=== PATIENT | male | born 1945 | race Caucasian/White ===

== ENCOUNTER 2016-10-14 09:04 | Emergency (ER) | payer MEDICARE, OTHER ==
[2016-10-14 09:23] VITALS: BP 176/79
--- NOTE | 2016-10-14 15:01 | UC ---
Cherelle Tello Anna, scribed for Joy Paul MD on 10/14/16 at 0914 . General HPI - HPI Summary HPI Summary: Patient is a 71 y/o male coming to [facility] – [place] presenting with right facial droop that began on Thursday, 10 October 2016 (today is Thursday). 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 Unable to close his eye, and feels like food and liquids are coming out of the right side of his mouth. No headache. No visual or auditory changes. No chest pain. No sob. No other weakness / paresth / dysesth. No gi sx. No b/b issues. No rash. Bit by a tick approx 1 year ago, reports that he was seen by his doctor at that time. Symptoms have not improved over the weekend (today is Thursday), prompting visit here, accompanied by his . His right eye is swollen and he cant blink it. He has been unable to drink water because of his mouth droop. Last night he noticed the back of his right ear was sore. He has been trying to get a hold of his doctor, Dr. Lyons. Does not sleep with air conditioner or heater blowing on him. - History of Current Complaint Stated Complaint: FACIAL NUMBNESS Time Seen by Provider: 10/14/16 09:08 Hx Obtained From: Patient, Family/District Adviser - Accompanied by Onset Severity: Moderate Current Severity: Moderate - Allergy/Home Medications Allergies/Adverse Reactions: Allergies Allergy/AdvReac Type Severity Reaction Status Date / Time No Known Allergies Allergy Verified 03/21/15 16:01 PMH/Surg Hx/FS Hx/Imm Hx Previously Healthy: No - see below Endocrine History Of: Reports: Diabetes, Thyroid Disease Cardiovascular History Of: Reports: Cardiac Disorders - CAD, stents, Hypertension Respiratory History Of: Denies: COPD, Asthma GI/ History Of: Denies: Ulcer - Surgical History Surgical History: Yes Surgery Procedure, Year, and Place: Knee replacement right knee, right shoulder replacement, fingers left hand repair, cardiac stents - Family History Known Family History: Positive: Hypertension - Social History Lives: With Family Alcohol Use: None Substance Use Type: None Smoking Status (MU): Never Smoked Tobacco Type: Cigarettes When Did the Patient Quit Smoking/Using Tobacco: 20+ years ago Review of Systems Constitutional: Negative Skin: Negative Eyes: Negative ENT: Other - see hpi Respiratory: Negative Cardiovascular: Negative Gastrointestinal: Negative Genitourinary: Negative Motor: Negative Neurovascular: Other - see hpi Musculoskeletal: Edema - feels like right side of face is swollen Neurological: Other - Right-sided facial droop Psychological: Negative All Other Systems Reviewed And Are Negative: Yes Physical Exam Triage Information Reviewed: Yes Appearance: Well-Nourished Vital Signs: Initial Vital Signs Temp 96.7 F 10/14/16 09:19 Pulse 66 10/14/16 09:19 Resp 20 10/14/16 09:19 BP 176/79 10/14/16 09:19 Pulse Ox 97 10/14/16 09:19 Vital Signs Reviewed: Yes Eye Exam: Other - perrla eomi, no gross nystagmus. R eyelids do not close completely, + watery, mild scleral redness. ENT: Positive: Nasal drainage - mild runny nose, TM dull - au dull. EAC's mild cerumen. No redness., Other: - see neuro Neck exam: Normal Neck: Positive: Supple, Nontender, No Lymphadenopathy Respiratory Exam: Normal Respiratory: Positive: Chest non-tender, Lungs clear, Normal breath sounds, No respiratory distress, No accessory muscle use Cardiovascular Exam: Normal Cardiovascular: Positive: RRR, No Murmur, Pulses Normal, Brisk Capillary Refill Abdominal Exam: Normal Abdomen Description: Positive: Nontender, No Organomegaly, Soft Bowel Sounds: Positive: Present Musculoskeletal Exam: Other - see neuro Neurological Exam: Other - Right facial droop. Forehead Right is NOT spared. Eye is watery. Asymmetric smile. Tongue possible slight L deviation. Neck supple. Trachea midline. No c/o diplopia. sparing. No c/o smell issues. V1- 3 sens to LT is present left face, also pt reports + light touch sensation to right face (although possibly dysesthetic). + ax N sensation intact. good shrug. Distal hand finger bilat sens light touch present. R/U pulses present. DTR's approx 1+ equalBR / R Moves all ext's. Distal sens LT present x 4 ext' s Gait not tested. R / U pulses 2+ equal. Psychological Exam: Normal - Conversing easily and appropriately Skin Exam: Normal - no visible or reported rash Diagnostics - EKG Cardiac Rate: NL - 63 bpm. EKG at 0913. Cardiac Rhythm: Sinus: Normal - LVH, baseline wander in lead v3. NM 152. QTc 439. Course/Dx - Course Course Of Treatment: No new problems in CCC. Blood sugar 250mg / dl. Reviewed EKG. No old for comp. Consider periph vs central. Most likely peripheral ( forehead is not spared). However, important that this be eval'd in the ED. Will send to the ED, will go via EMS. D/w ED attending. Questions answered as posed. - Differential Dx - Multi-Symptom Provider Diagnoses: R facial weakness. - Physician Notifications Discussed Patient Care With: Dr. Cuevas (ED Doctor) at 09. Agrees to accept patient at [facility]. Discharge - Discharge Plan Condition: Guarded Disposition: TRANS HIGHER LVL OF CARE FAC Referrals: Priya Brooks MD [Primary Care Provider] - The documentation as recorded by the Cherelle duran Anna accurately reflects the service I personally performed and the decisions made by me, Joy Paul MD.
== END 2016-10-14 09:37 | disposition short-term general hospital (02) ==
LOC: UCEAST 09:04
DX: R29.810 Facial weakness (principal); Z87.891 Personal history of nicotine dependence
CPT/HCPCS: 93005; 99213; G0463

== ENCOUNTER 2016-10-14 09:48 | Emergency (ER) | payer MEDICARE, OTHER ==
[2016-10-14 10:02] VITALS: BP 150/67
[2016-10-14] MEDS ORDERED: predniSONE TAB* 20 MG PO ONE (10:42)
[2016-10-14 10:54] LABS: Hematocrit 39 % (42-52); Hemoglobin 13.2 g/dl (14.0-18.0); Mean Corpuscular HGB Conc 34 g/dl (31-36); Mean Corpuscular Hemoglobin 31 pg (27-31); Mean Corpuscular Volume 90 fL (80-94); Mean Platelet Volume 9 um3 (7.4-10.4); Red Blood Count 4.31 10^6/ul (4.0-5.4); Red Cell Distribution Width 13 % (10.5-15)
[2016-10-14 11:11] LABS: Albumin 4.2 g/dL (3.2-5.2); Calcium 10.1 mg/dL (8.6-10.3); EGFR Non-African American 55.2 (>60); Potassium 4.4 mmol/L (3.5-5.0); Total Bilirubin 0.5 mg/dL (0.2-1.0); Total Protein 7.2 g/dL (6.4-8.9)
--- NOTE | 2016-10-14 11:24 | RAD ---
INDICATION: Complete right facial paralysis. COMPARISON: Comparison is made with a prior CT of the brain from September 08, 2013. TECHNIQUE: Contiguous axial sections of the brain were obtained from the skull base to the vertex without contrast. FINDINGS: The ventricles, cisterns and sulci are within normal limits. No significant focal abnormality or mass effect is seen. There is no evidence for hemorrhage. No significant focal osseous abnormality is seen. The visualized portion of the paranasal sinuses and mastoid air cells appear clear. IMPRESSION: NO EVIDENCE FOR GROSS ACUTE INFARCT, MASS EFFECT OR HEMORRHAGE.
[2016-10-14] MEDS ORDERED: ValACYclovir (*) 1 GM TAB PO ONE (12:01)
[2016-10-14] MEDS ORDERED: Cephalexin CAP* 500 MG PO ONE (12:12)
--- NOTE | 2016-10-14 18:38 | ED ---
Toribio Tello Matthew, scribed for Reinaldo Cuevas MD on 10/14/16 at 1126 . Neurological HPI - HPI Summary HPI Summary: A 71 y/o male presents to the ED with sudden right sided facial drooping since . 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 The patient denies rash. He has a sore on his back and saw Dr. Brooks his PCP on 10/10/16. 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 The patient took his blood pressure medication this morning. - History of Current Complaint Chief Complaint: EDNeurologicalDeficit Stated Complaint: FACIAL NUMBNESS Time Seen by Provider: 10/14/16 09:52 Hx Obtained From: Patient Onset/Duration: Sudden Onset, Started days ago - 3, Still Present Timing: Constant Onset Severity: Mild Current Severity: Mild Neurological Deficit Location: Facial Character: Paralysis - left side of the face Aggravating: Nothing Alleviating: Nothing Associated Signs and Symptoms: Positive: Pain - Right inner ear - Allergy/Home Medications Allergies/Adverse Reactions: Allergies Allergy/AdvReac Type Severity Reaction Status Date / Time No Known Allergies Allergy Verified 03/21/15 16:01 PMH/Surg Hx/FS Hx/Imm Hx Endocrine/Hematology History: Reports: Hx Diabetes Denies: Hx Thyroid Disease Cardiovascular History: Reports: Hx Hypertension Respiratory History: Denies: Hx Asthma, Hx Chronic Obstructive Pulmonary Disease (COPD) GI History: Denies: Hx Ulcer - Surgical History Surgery Procedure, Year, and Place: Knee replacement right knee, right shoulder replacement, fingers left hand repair, cardiac stents Infectious Disease History: No Infectious Disease History: Denies: Hx Hepatitis, Hx Human Immunodeficiency Virus (HIV), History Other Infectious Disease, Traveled Outside the [place] in Last 30 Days - Family History Known Family History: Positive: Hypertension - Social History Alcohol Use: None Substance Use Type: Reports: None Smoking Status (MU): Never Smoked Tobacco Type: Cigarettes Review of Systems Constitutional: Negative Negative: Fever, Chills Eyes: Negative Negative: Erythema Positive: Ear Ache - RT inner ear, Other - mild hearing loss Cardiovascular: Negative Negative: Chest Pain Respiratory: Negative Negative: Shortness Of Breath, Cough Gastrointestinal: Negative Negative: Abdominal Pain, Vomiting, Diarrhea, Nausea Genitourinary: Negative Negative: dysuria, hematuria Musculoskeletal: Negative Negative: Myalgia, Edema Skin: Other - Sore on the patient's back Negative: Rash Neurological: Other - Right sided facial paralysis and facial drooping Psychological: Normal All Other Systems Reviewed And Are Negative: Yes Physical Exam Triage Information Reviewed: Yes Vital Signs On Initial Exam: Initial Vitals Temp Pulse Resp BP Pulse Ox 97.7 F 64 18 150/67 94 10/14/16 09:58 10/14/16 09:58 10/14/16 09:58 10/14/16 09:58 10/14/16 09:58 Vital Signs Reviewed: Yes Appearance: Positive: Well-Appearing, No Pain Distress Skin: Positive: Warm, Dry Head/Face: Positive: Other - Normocephalic; Atraumatic Eyes: Positive: Conjunctiva Clear Neck: Positive: No Lymphadenopathy, Other: - Full ROM, No JVD Respiratory/Lung Sounds: Positive: Breath Sounds Present, Other - Normal Effor. Negative: Rales, Rhonchi, Stridor, Tracheal Deviation, Wheezes Cardiovascular: Positive: RRR, Pulses are Symmetrical in both Upper and Lower Extremities Abdomen Description: Positive: Nontender, Soft, Other: - NO rebound. Negative: Distended, Guarding Bowel Sounds: Positive: Present Musculoskeletal: Negative: Edema Left, Edema Right Neurological: Positive: Other - COMPLETE RIGHT SIDED FACIAL PARALYSIS AND DIMINISHED SENSATION; UNABLE TO ELEVATE RIGHT EYEBROW OR CLOSE RIGHT EYE FULLY; VESICALES PRESENT ON THE EXTERNAL RIGHT EAR Psychiatric: Positive: Affect/Mood Appropriate - [place] Coma Scale Coma Scale Total: 15 Diagnostics - Vital Signs Vital Signs Temp Pulse Resp BP Pulse Ox 10/14/16 10:04 62 10/14/16 09:58 97.7 F 64 18 150/67 94 - Laboratory Lab Results: Lab Results 10/14/16 10/14/16 10/14/16 Range/Units 09:13 09:20 09:20 WBC 6.0 (3.5-10.8) 10^3/ul RBC 4.31 (4.0-5.4) 10^6/ul Hgb 13.2 L (14.0-18.0) g/dl Hct 39 L (42-52) % MCV 90 (80-94) fL MCH 31 (27-31) pg MCHC 34 (31-36) g/dl RDW 13 (10.5-15) % Plt Count 173 (150-450) 10^3/ul MPV 9 (7.4-10.4) um3 Neut % (Auto) 65.9 (38-83) % Lymph % (Auto) 21.8 L (25-47) % [place] % (Auto) 6.3 (1-9) % Eos % (Auto) 5.1 (0-6) % Baso % (Auto) 0.9 (0-2) % Absolute Neuts (auto) 3.9 (1.5-7.7) 10^3/ul Absolute Lymphs (auto) 1.3 (1.0-4.8) 10^3/ul Absolute Monos (auto) 0.4 (0-0.8) 10^3/ul Absolute Eos (auto) 0.3 (0-0.6) 10^3/ul Absolute Basos (auto) 0.1 (0-0.2) 10^3/ul Absolute Nucleated RBC 0 10^3/ul Nucleated RBC % 0.1 INR (Anticoag Therapy) 0.97 (0.89-1.11) APTT 31.7 (26.0-36.3) seconds Sodium (133-145) mmol/L Potassium (3.5-5.0) mmol/L Chloride (101-111) mmol/L Carbon Dioxide (22-32) mmol/L Anion Gap (2-11) mmol/L BUN (6-24) mg/dL Creatinine (0.67-1.17) mg/dL Est GFR ( Amer) (>60) Est GFR (Non-Af Amer) (>60) BUN/Creatinine Ratio (8-20) Glucose (70-100) mg/dL POC Glucose (mg/dL) 250 H (74-106) mg/dL Calcium (8.6-10.3) mg/dL Total Bilirubin (0.2-1.0) mg/dL AST (13-39) U/L ALT (7-52) U/L Alkaline Phosphatase (34-104) U/L Total Protein (6.4-8.9) g/dL Albumin (3.2-5.2) g/dL Globulin (2-4) g/dL Albumin/Globulin Ratio (1-3) 03// Range/Units 09:20 WBC (3.5-10.8) 10^3/ul RBC (4.0-5.4) 10^6/ul Hgb (14.0-18.0) g/dl Hct (42-52) % MCV (80-94) fL MCH (27-31) pg MCHC (31-36) g/dl RDW (10.5-15) % Plt Count (150-450) 10^3/ul MPV (7.4-10.4) um3 Neut % (Auto) (38-83) % Lymph % (Auto) (25-47) % [place] % (Auto) (1-9) % Eos % (Auto) (0-6) % Baso % (Auto) (0-2) % Absolute Neuts (auto) (1.5-7.7) 10^3/ul Absolute Lymphs (auto) (1.0-4.8) 10^3/ul Absolute Monos (auto) (0-0.8) 10^3/ul Absolute Eos (auto) (0-0.6) 10^3/ul Absolute Basos (auto) (0-0.2) 10^3/ul Absolute Nucleated RBC 10^3/ul Nucleated RBC % INR (Anticoag Therapy) (0.89-1.11) APTT (26.0-36.3) seconds Sodium 133 (133-145) mmol/L Potassium 4.4 (3.5-5.0) mmol/L Chloride 98 L (101-111) mmol/L Carbon Dioxide 27 (22-32) mmol/L Anion Gap 8 (2-11) mmol/L BUN 32 H (6-24) mg/dL Creatinine 1.28 H (0.67-1.17) mg/dL Est GFR ( Amer) 71.0 (>60) Est GFR (Non-Af Amer) 55.2 (>60) BUN/Creatinine Ratio 25.0 H (8-20) Glucose 233 H (70-100) mg/dL POC Glucose (mg/dL) (74-106) mg/dL Calcium 10.1 (8.6-10.3) mg/dL Total Bilirubin 0.50 (0.2-1.0) mg/dL AST 18 (13-39) U/L ALT 23 (7-52) U/L Alkaline Phosphatase 103 (34-104) U/L Total Protein 7.2 (6.4-8.9) g/dL Albumin 4.2 (3.2-5.2) g/dL Globulin 3.0 (2-4) g/dL Albumin/Globulin Ratio 1.4 (1-3) Result Diagrams: 10/14/16 09:20 10/14/16 09:20 Lab Statement: Any lab studies that have been ordered have been reviewed, and results considered in the medical decision making process. - CT Brain CT CT Interpretation: No Acute Changes - IMPRESSION: NO EVIDENCE FOR GROSS ACUTE INFARCT, MASS EFFECT OR HEMORRHAGE. CT Interpretation Completed By: Radiologist NIH Scale - NIH Scale Level of Consciousness: Alert/Keenly Responsive Ask Patient the Month and His/Her Age: Both Correct Ask Pt to Open/Close Eyes and Packaging Supervisor/Release Non-Paretic Hand: Both Correctly Best Gaze (Only Horizontal Eye Movement): Normal Visual Field Testing: No Visual Loss Facial Paresis-Pt to Smile & Close Eyes or Grimace Symmetry: Partial Paralysis Motor Function - Right Arm: No Drift-Holds 10 Seconds Motor Function - Left Arm: No Drift-Holds 10 Seconds Motor Function - Right Leg: No Drift-Holds 10 Seconds Motor Function - Left Leg: No Drift-Holds 10 Seconds Limb Ataxia-Must be out of Proportion to Weakness Present: Absent Sensory (Use Pinprick to Test Arms/Legs/Trunk/Face): Normal Best Language (Describe Picture, Name Items): No Aphasia Dysarthria (Read Several Words): Normal Extinction and Inattention: No Abnormality Total Score: 2 Re-Evaluation - Re-Evaluation First Eval Re-Evaluation Time: 12:12 Comment: The patient is now reporting he does have some hearing loss. He also reports that a few days ago he experienced vertigo and tinnitus. Course/Dx - Diagnoses Provider Diagnoses: Herpes zoster oticus, Lara's palsy - Physician Notifications Discussed Care of Patient With: Dr. Schneider (ENT) at 13:31 -- Notified of patinet's history and wants the patient to follow-up at his office in 7-10 days. Discharge - Discharge Plan Condition: Stable Disposition: HOME Prescriptions: ValACYclovir (*) [Valtrex 1 GM(*)] 1 gm PO TID #42 tab predniSONE TAB* [Deltasone TAB*] 60 mg PO DAILY #21 tab Patient Education Materials: Shingles (ED), Lara Palsy (ED), Prednisone (By mouth), Valacyclovir (By mouth) Referrals: [facility] [place] PHYSICIAN REFERRAL [Outside] - 3 Days Jackson Schneider MD [Medical Doctor] - 7 Days Additional Instructions: Please follow-up with your primary care physician in [address] Schneider in 7 days. Please have your primary care physician continue the Prednisone prescription. Please return to the ED for changing or worsening symptoms. Images - Images Ear: 1 - vesicles noted The documentation as recorded by the Toribio duran Matthew accurately reflects the service I personally performed and the decisions made by me, Reinaldo Cuevas MD.
--- NOTE | 2016-10-16 16:47 | PN ---
Progress Note - Progress Note Note: Read previous visit notes and does not clearly state where wound culture was obtained. Wound culture results came back negative for S. aureaus and MRSA. Patient was diagnosed with Lara's palsy and herpes zoster oticus. Possible that vesicles in ear were cultured. Culture results were 2+ stap Lugdenensis. no further action needed at this time as patient was properly treated for diagnosis.
--- NOTE | 2016-10-17 09:31 | PN ---
Progress Note - Progress Note Note: wound culture from back grew staphylococcus lugdenensis. called and spoke to patient and he states that wound on back is improving with medication set up with at d/c and does not want any further antibiotic at this time.
--- NOTE | 2016-10-23 11:12 | ED ---
Toribio Tello Matthew, scribed for Reinaldo Cuevas MD on 10/14/16 at 1925 . Progress - Progress Note Progress Note: A A 71 y/o male presents to the ED with right sided facial drooping since . The patient denies rash. Brain CT showed no acute intracranial pathology. Labs were reviewed. On exam the patient had vesicles in his right inner ear and complete right sided facial paralysis. On re-evaluation, he reported having some hearing loss. He also reports that a few days ago he experienced vertigo and tinnitus. Discussed the case with Dr. Schneider who will have the patient follow-up at his office in 7-10 days. Re-Evaluation - Re-Evaluation First Eval Re-Evaluation Time: 12:12 Comment: The patient is now reporting he does have some hearing loss. He also reports that a few days ago he experienced vertigo and tinnitus. Course/Dx - Diagnoses Provider Diagnoses: Herpes zoster oticus, Lara's palsy - Provider Notifications Discussed Care Of Patient With: Dr. Schneider (ENT) at 13:31 -- Notified of patinet's history and wants the patient to follow-up at his office in 7-10 days. The documentation as recorded by the scribeToribio Matthew accurately reflects the service I personally performed and the decisions made by me, Reinaldo Cuevas MD.
== END 2016-10-14 13:47 | disposition home or self-care (01) ==
LOC: ED 09:48
DX: B02.21 Postherpetic geniculate ganglionitis (principal); G51.0 Bell's palsy; H92.01 Otalgia, right ear
CPT/HCPCS: 36415; 70450; 80053; 85025; 85610; 85730; 87070; 87077; 87186; 87205; 87640; 87641; 99284; A9270-GY; J7512

== ENCOUNTER 2017-12-15 15:19 | Emergency (ER) | payer MEDICARE ==
[2017-12-15 15:34] VITALS: BP 140/76
--- NOTE | 2017-12-15 16:03 | UC ---
Lower Extremity/Ankle HPI - HPI Summary HPI Summary: PATIENT PRESENTS WITH ONSET OF LEFT FOOT SWELLING, REDNESS AND PAIN SINCE LAST NIGHT. PATIENT TOOK A MISSTEP WHILE STEPPING UP ONTO HIS PORCH WITH HIS LEFT FOOT AROUND 6 PM YESTERDAY HOWEVER HAD NO PAIN AT THAT TIME. ABOUT 4 HOURS LATER WHILE HE WAS SITTING ON THE COUCH HE SUDDENLY NOTICED DISCOMFORT AND SWELLING. SINCE THEN THE PAIN GOT PROGRESSIVELY WORSE. NO FEVER. PATIENT DOES HAVE A HISTORY OF DIABETES AND HEART DISEASE HAVING HAD A 3V CABG 5 WEEKS AGO. VESSELS WERE HARVESTED FROM HIS LEFT LEG FOR THIS PROCEDURE. THE INCISION APPEARS TO BE HEALING WELL HOWEVER THE TENDERNESS IN HIS LOWER LEG FROM THIS PROCEDURE HAS SUDDENLY WORSENED. - History of Current Complaint Chief Complaint: UCLowerExtremity Stated Complaint: foot pain Time Seen by Provider: 12/15/17 16:02 Hx Obtained From: Patient Onset/Duration: Sudden Onset, Lasting Hours, Still Present Severity Initially: Moderate Severity Currently: Severe Pain Intensity: 10 Pain Scale Used: 0-10 Numeric Aggravating Factor(s): Standing, Ambulation, Other - TOUCH Alleviating Factor(s): Rest, Elevation Able to Bear Weight: Yes - WITH PAIN - Allergies/Home Medications Allergies/Adverse Reactions: Allergies Allergy/AdvReac Type Severity Reaction Status Date / Time No Known Allergies Allergy Verified 12/15/17 15:34 PMH/Surg Hx/FS Hx/Imm Hx Endocrine History: Diabetes Cardiovascular History: Cardiac Disease, Hypertension - Surgical History Surgical History: Yes Surgery Procedure, Year, and Place: Knee replacement right knee, right shoulder replacement, fingers left hand repair, cardiac stents, cardiac bypass 11/12 - Family History Known Family History: Positive: Cardiac Disease, Hypertension - Social History Alcohol Use: None Substance Use Type: None Smoking Status (MU): Never Smoked Tobacco Type: Cigarettes When Did the Patient Quit Smoking/Using Tobacco: 20+ years ago Review of Systems Constitutional: Negative Skin: Other - redness Respiratory: Negative Cardiovascular: Negative Gastrointestinal: Negative Musculoskeletal: Arthralgia, Decreased ROM, Edema All Other Systems Reviewed And Are Negative: Yes Physical Exam Triage Information Reviewed: Yes Appearance: Well-Appearing, No Pain Distress, Well-Nourished Vital Signs: Initial Vital Signs Temp 98.4 F 12/15/17 15:25 Pulse 68 12/15/17 15:25 Resp 22 12/15/17 15:25 BP 140/76 12/15/17 15:25 Pulse Ox 100 12/15/17 15:25 Vital Signs Reviewed: Yes Eyes: Positive: Conjunctiva Clear ENT: Positive: Hearing grossly normal Neck: Positive: Supple Respiratory: Positive: No respiratory distress, No accessory muscle use Cardiovascular: Positive: Other: - UNABLE TO PALPATE DP PULSE LEFT FOOT Abdomen Description: Positive: Soft Musculoskeletal: Positive: ROM Limited @ - LEFT FOOT, Edema @ - 2+ PITTINE EDEMA LEFT FOOT AND ANKLE, Other: - EXQUISITELY TENDER DORSUM OF LEFT FOOT EXTENDING FROM 2ND, 3RD AND 4TH MTP JOINTS PROXIMALLY TO ANKLE. ALSO TENDER MEDIAL ANKLE EXTENDING PROXIMALLY TO VEIN HARVEST INCISION. INCISION IS HEALING WITH MILD CRUST. NO SURROUNDING ERYTHEMA Neurological: Positive: Alert Psychological: Positive: Age Appropriate Behavior Skin: Positive: breakdown - SKIN MACERATED 3RD AND 4TH WEB SPACES LEFT FOOT. ERYTHEMA IN STREAKLIKE PATTERN ACROSS DORSUM OF LEFT FOOT. Diagnostics - Radiology LEFT FOOT XRAY Xray Interpretation: Positive (See Comments) - 1. AGE-APPROPRIATE DEGENERATIVE CHANGES IN THE LEFT FOOT WITHOUT RADIOGRAPHICALLY VISIBLE FRACTURE OR DISLOCATION. 2. COARSELY CALCIFIED ATHEROSCLEROSIS OF THE VISUALIZED INFRAPOPLITEAL AND PEDAL ARTERIES. PLEASE CORRELATE TO SIGNS OR SYMPTOMS OF ARTERIAL INSUFFICIENCY. Radiology Interpretation Completed By: Radiologist Lower Extremity Course/Dx - Course Course Of Treatment: PATIENT HAS A HISTORY OF DIABETES AND 3 VESSEL CABG ABOUT 5 WEEKS AGO. HE IS PRESENTING WITH EXQUISITE TENDERNESS AND PAIN IN HIS LEFT FOOT ALONG WITH NEW ONSET ERYTHEMA AND SWELLING. HAVE ADVISED PATIENT TO GO TO THE [facility] ED DIRECTLY FROM HERE FOR FURTHER EVALUATION. HE DOES HAVE SOME MACERATION IN BETWEEN HIS TOES AND A RECENT VEIN HARVEST IN THE AFFECTED LEG FROM WHICH A CELLULITIS COULD HAVE DEVELOPED. ALSO IN THE DIFFERENTIAL WOULD BE VASCULAR DISEASE/THROMBOSIS. - Differential Dx/Diagnosis Provider Diagnoses: LEFT FOOT PAIN/SWELLING Discharge - Sign-Out/Discharge Documenting (check all that apply): Discharge/Admit/Transfer - Discharge Plan Condition: Stable Disposition: HOME Patient Education Materials: Arthralgia (ED), Swollen Joint (ED) Referrals: Priya Brooks MD [Primary Care Provider] - If Needed Additional Instructions: LEFT FOOT XRAY TODAY SHOWS DEGENERATIVE CHANGES WITHOUT RADIOGRAPHICALLY VISIBLE FRACTURE OR DISLOCATION. THERE ARE COARSELY CALCIFIED ATHEROSCLEROSIS OF THE ARTERIES. GO DIRECTLY TO THE [facility] ED FROM HERE FOR FURTHER EVALUATION. GIVEN YOUR PRESENTATION, LEVEL OF DISCOMFORT AND RECENT SURGERY YOU WOULD BENEFIT FROM A HIGHER LEVEL OF CARE THAN WHAT WE CAN OFFER AT THE URGENT CARE. - Billing Disposition and Condition Condition: STABLE Disposition: HOME
--- NOTE | 2017-12-15 16:48 | RAD ---
INDICATION: Pain and swelling over the distal left metatarsals after a fall COMPARISON: None. TECHNIQUE: 3 views of the left foot were obtained. FINDINGS: The adequately corticated bones are properly aligned. Intertarsal and tarsometatarsal joint space narrowing with sclerotic changes noted. There is marginal osteophyte formation around the distal head of the left great toe metatarsal as well as enthesophyte formation on the calcaneal tubercle at the insertion of the Achilles tendon and origin of the plantar fascia.. No fracture, dislocation or focal bony abnormality is seen. Coarsely calcified atherosclerosis of the distal TALENT ACQUISITION ADMINISTRATOR and dorsalis pedis arteries are noted. IMPRESSION: 1. AGE-APPROPRIATE DEGENERATIVE CHANGES IN THE LEFT FOOT WITHOUT RADIOGRAPHICALLY VISIBLE FRACTURE OR DISLOCATION. 2. COARSELY CALCIFIED ATHEROSCLEROSIS OF THE VISUALIZED INFRAPOPLITEAL AND PEDAL ARTERIES. PLEASE CORRELATE TO SIGNS OR SYMPTOMS OF ARTERIAL INSUFFICIENCY. If the patient's symptoms persist, follow-up imaging is recommended.
== END 2017-12-15 17:05 | disposition home or self-care (01) ==
LOC: UCEAST 15:19
DX: M79.672 Pain in left foot (principal); M79.89 Other specified soft tissue disorders; E11.9 Type 2 diabetes mellitus without complications; Z79.84 Long term (current) use of oral hypoglycemic drugs; I11.9 Hypertensive heart disease without heart failure; Z96.651 Presence of right artificial knee joint; Z96.611 Presence of right artificial shoulder joint; Z95.5 Presence of coronary angioplasty implant and graft; Z95.1 Presence of aortocoronary bypass graft; Z87.891 Personal history of nicotine dependence
CPT/HCPCS: 99212; G0463

== ENCOUNTER 2017-12-15 17:40 | Emergency (ER) | payer MEDICARE ==
[2017-12-15 20:24] LABS: ABS Basophils 0.1 10^3/ul (0-0.2); ABS Eosinophils 0.1 10^3/ul (0-0.6); ABS Lymphocytes 1.1 10^3/ul (1.0-4.8); ABS Monocytes 0.6 10^3/ul (0-0.8); ABS Neutrophils 6.3 10^3/ul (1.5-7.7); ABS Nucleated RBC 0 10^3/ul; Eosinophil % 1.7 % (0-6); Hematocrit 34 % (42-52); Hemoglobin 11.5 g/dl (14.0-18.0); Mean Corpuscular HGB Conc 34 g/dl (31-36); Mean Corpuscular Hemoglobin 31 pg (27-31); Mean Corpuscular Volume 90 fL (80-94); Mean Platelet Volume 8.5 um3 (7.4-10.4); Nucleated Red Blood Cells % 0; Platelet Count 254 10^3/ul (150-450); Red Cell Distribution Width 15 % (10.5-15); White Blood Count 8.2 10^3/ul (3.5-10.8)
[2017-12-15 20:38] LABS: EGFR Non-African American 45.2 (>60)
[2017-12-15] MEDS ORDERED: Morphine VIAL* 4 MG/ML VIAL (1 ml vial) IV ONE (21:04)
[2017-12-15] MEDS ORDERED: NS 0.9% 1000 ML* 1,000 ML IV ONE (21:05)
[2017-12-15] MEDS ORDERED: Insulin REGULAR(*) 1 UNITS UNIT IV PUSH ONE (21:05)
[2017-12-15] MEDS ORDERED: cefTRIAXone(*) 1 GM in NS 0.9% 50 ML* 50 ML IVPB ONE (21:06)
--- NOTE | 2017-12-15 21:22 | RAD ---
HISTORY: Left foot pain and redness x24 hours. Relevant history includes left leg vein harvest for CABG 5 weeks earlier. TECHNIQUE: Multiple transverse and longitudinal ultrasound images were obtained of the veins of the left lower extremity using grayscale, color Doppler, and spectral Doppler imaging with and without compression and with augmentation. FINDINGS: VEINS: The common femoral vein, deep femoral vein, femoral vein and popliteal vein are compressible throughout their course, with normal flow on color Doppler imaging and normal response to augmentation on spectral Doppler imaging. SOFT TISSUES: Grossly normal. No large popliteal fossa cyst was identified. IMPRESSION: No sonographic evidence of deep vein thrombosis.
[2017-12-16 00:18] VITALS: BP 171/75
--- NOTE | 2017-12-16 13:49 | ED ---
Lamont Tello Gabriel, scribed for Gerry Lovett MD on 12/15/17 at 2008 . Lower Extremity - HPI Summary HPI Summary: This patient is a 72 year old M presenting to [facility] accompanied by his with a chief complaint of LLE pain that began yesterday night. The patient rates the pain 8/10 in severity. Patient reports swelling, warmth, and erythema. Pt had a triple bypass 5 weeks ago and the used veins from his LLE. Pt was sent from after Xray were taken. - History of Current Complaint Chief Complaint: EDExtremityLower Stated Complaint: LT FOOT PAIN Time Seen by Provider: 12/15/17 20:02 Hx Obtained From: Patient Mechanism Of Injury: Unknown Onset/Duration: Still Present Severity Initially: Moderate Severity Currently: Moderate Pain Intensity: 8 Pain Scale Used: 0-10 Numeric Timing: Constant Location: Is Discrete @ - LLE Associated Signs And Symptoms: Positive: Swelling, Redness - Allergies/Home Medications Allergies/Adverse Reactions: Allergies Allergy/AdvReac Type Severity Reaction Status Date / Time No Known Allergies Allergy Verified 12/15/17 15:34 PMH/Surg Hx/FS Hx/Imm Hx Endocrine/Hematology History: Reports: Hx Diabetes Denies: Hx Thyroid Disease Cardiovascular History: Reports: Hx Hypertension, Other Cardiovascular Problems/ Disorders - CABG Respiratory History: Denies: Hx Asthma, Hx Chronic Obstructive Pulmonary Disease (COPD), Hx Pleural Effusion GI History: Denies: Hx Ulcer - Surgical History Surgery Procedure, Year, and Place: Knee replacement right knee, right shoulder replacement, fingers left hand repair, cardiac stents, cardiac bypass 11/12 Infectious Disease History: No Infectious Disease History: Denies: Hx Hepatitis, Hx Human Immunodeficiency Virus (HIV), History Other Infectious Disease, Traveled Outside the [place] in Last 30 Days - Family History Known Family History: Positive: Cardiac Disease, Hypertension - Social History Lives: With Family Alcohol Use: None Substance Use Type: Reports: None Smoking Status (MU): Never Smoked Tobacco Type: Cigarettes Review of Systems Negative: Fever Positive: Edema, Other - pain at LLE Positive: Other - red All Other Systems Reviewed And Are Negative: Yes Physical Exam - Summary Physical Exam Summary: VITAL SIGNS: Reviewed. GENERAL: Patient is a well-developed and nourished male who is lying comfortable in the stretcher. Patient is not in any acute respiratory distress. HEAD AND FACE: No signs of trauma. No ecchymosis, hematomas or skull depressions. No sinus tenderness. EYES: PERRLA, EOMI x 2, No injected conjunctiva, no nystagmus. EARS: Hearing grossly intact. Ear canals and tympanic membranes are within normal limits. MOUTH: Oropharynx within normal limits. NECK: Supple, trachea is midline, no adenopathy, no JVD, no carotid bruit, no c- spine tenderness, neck with full ROM. CHEST: Symmetric, no tenderness at palpation LUNGS: Clear to auscultation bilaterally. No wheezing or crackles. CVS: Regular rate and rhythm, S1 and S2 present, no murmurs or gallops appreciated. ABDOMEN: Soft, non-tender. No signs of distention. No rebound no guarding, and no masses palpated. Bowel sounds are normal. EXTREMITIES: FROM in all major joints, no edema, no cyanosis or clubbing. Good distal pulses NEURO: Alert and oriented x 3. No acute neurological deficits. Speech is normal and follows commands. SKIN: Dry and warm erythema in the dorsal aspect of the left foot. Positive pedal and femoral pulse Triage Information Reviewed: Yes Vital Signs On Initial Exam: Initial Vitals Temp Pulse Resp BP Pulse Ox 98.4 F 70 15 133/56 96 12/15/17 18:15 12/15/17 18:15 12/15/17 18:15 12/15/17 18:15 12/15/17 18:15 Vital Signs Reviewed: Yes Diagnostics - Vital Signs Vital Signs Temp Pulse Resp BP Pulse Ox 12/15/17 18:15 98.4 F 70 15 133/56 96 - Laboratory Lab Results: Lab Results 12/15/17 12/15/17 Range/Units 20:10 20:10 WBC 8.2 (3.5-10.8) 10^3/ul RBC 3.70 L (4.0-5.4) 10^6/ul Hgb 11.5 L (14.0-18.0) g/dl Hct 34 L (42-52) % MCV 90 (80-94) fL MCH 31 (27-31) pg MCHC 34 (31-36) g/dl RDW 15 (10.5-15) % Plt Count 254 (150-450) 10^3/ul MPV 8.5 (7.4-10.4) um3 Neut % (Auto) 76.9 (38-83) % Lymph % (Auto) 13.0 L (25-47) % [place] % (Auto) 7.6 H (0-7) % Eos % (Auto) 1.7 (0-6) % Baso % (Auto) 0.8 (0-2) % Absolute Neuts (auto) 6.3 (1.5-7.7) 10^3/ul Absolute Lymphs (auto) 1.1 (1.0-4.8) 10^3/ul Absolute Monos (auto) 0.6 (0-0.8) 10^3/ul Absolute Eos (auto) 0.1 (0-0.6) 10^3/ul Absolute Basos (auto) 0.1 (0-0.2) 10^3/ul Absolute Nucleated RBC 0 10^3/ul Nucleated RBC % 0 ESR 67 H (0-40) mm/Hr Sodium 138 L (139-145) mmol/L Potassium 4.4 (3.5-5.0) mmol/L Chloride 96 L (101-111) mmol/L Carbon Dioxide 32 (22-32) mmol/L Anion Gap 10 (2-11) mmol/L BUN 36 H (6-24) mg/dL Creatinine 1.52 H (0.67-1.17) mg/dL Est GFR ( Amer) 58.1 (>60) Est GFR (Non-Af Amer) 45.2 (>60) BUN/Creatinine Ratio 23.7 H (8-20) Glucose 371 H (70-100) mg/dL Calcium 9.7 (8.6-10.3) mg/dL Total Bilirubin 0.50 (0.2-1.0) mg/dL AST 14 (13-39) U/L ALT 9 (7-52) U/L Alkaline Phosphatase 104 (34-104) U/L C-Reactive Protein 45.30 H (< 5.00) mg/L Total Protein 7.0 (6.4-8.9) g/dL Albumin 3.9 (3.2-5.2) g/dL Globulin 3.1 (2-4) g/dL Albumin/Globulin Ratio 1.3 (1-3) Result Diagrams: 12/15/17 20:10 12/15/17 20:10 Lab Statement: Any lab studies that have been ordered have been reviewed, and results considered in the medical decision making process. - Additional Comments Diagnostic Additional Comments: Venous Doppler study reveals, per radiologist, No sonographic evidence of deep vein thrombosis. ED physician has reviewed this radiology report. Lower Extremity Course/Dx - Course Assessment/Plan: This patient is a 72-year-old male who presents to the emergency department with a chief complaint of left lower extremity swelling and redness. The patient reports that he had a triple bypass 3 weeks ago and he was doing well until yesterday night when he developed this redness and pain. Today he had some swelling before he went to the urgent care where they did an x-ray of the foot I show no acute fracture dislocation. Therefore the patient was sent to the emergency department for further workup and management. Physical exam the patient has a positive left femoral pulses and also positive left pedal pulses. I also obtained a pulses with a Doppler. Blood test result shows slight anemia with a hemoglobin of 11.5 and hematocrit 34. Sodium is 138. V1 is 36 and creatinine is 1.5. Glucose is 371. CO2 is 45.3. In the ED course the patient was given IV fluids, he was given Rocephin for which I think the patient has an infection in the dorsal aspect of the left foot and also he was given insulin for the hyperglycemia. Left lower extremity ultrasound is negative for DVT. Therefore the patient will be discharged home with a prescription for Bactrim for the cellulitis and local for the pain. The patient will be asked to elevate the foot at all times. He was also given instructions if he has pain in the calf, increase in pain from the whole foot and decreased temperature in the foot he should return immediately to the patient for further workup and management. The patient understands and agrees. - Diagnoses Differential Diagnosis/HQI/PQRI: Positive: Cellulitis, DVT, Gout, Infection, Phlebitis, Septic Arthritis, Sprain, Strain, Other - Arterial occlusion Provider Diagnoses: Cellulitis Discharge - Sign-Out/Discharge Documenting (check all that apply): Discharge/Admit/Transfer - Discharge Plan Condition: Stable Disposition: HOME Referrals: Priya Brooks MD [Primary Care Provider] - The documentation as recorded by the Lamont duran Gabriel accurately reflects the service I personally performed and the decisions made by , Gerry Lovett MD.
== END 2017-12-16 00:22 | disposition home or self-care (01) ==
LOC: ED 17:40
DX: L03.116 Cellulitis of left lower limb (principal); E11.65 Type 2 diabetes mellitus with hyperglycemia; D64.9 Anemia, unspecified; I10 Essential (primary) hypertension; I25.10 Atherosclerotic heart disease of native coronary artery without angina pectoris; Z95.5 Presence of coronary angioplasty implant and graft; Z95.1 Presence of aortocoronary bypass graft
CPT/HCPCS: 36415; 80053; 85025; 85652; 86140; 96374; 96375; 99285; J0696; J2270

== ENCOUNTER 2017-12-18 15:15 | Observation (INO) | payer MEDICARE ==
[2017-12-18] MEDS ORDERED: ceFAZolin 1 GM VIAL(*) 1 GM in NS 0.9% 50 ML* 50 ML IVPB ONE (17:34)
[2017-12-18 18:19] LABS: ABS Basophils 0.1 10^3/ul (0-0.2); ABS Eosinophils 0.2 10^3/ul (0-0.6); ABS Lymphocytes 1.2 10^3/ul (1.0-4.8); ABS Monocytes 0.6 10^3/ul (0-0.8); ABS Neutrophils 6.1 10^3/ul (1.5-7.7); ABS Nucleated RBC 0 10^3/ul; Hematocrit 31 % (42-52); Hemoglobin 10.5 g/dl (14.0-18.0); Lymphocyte % 14.6 % (25-47); Mean Corpuscular HGB Conc 34 g/dl (31-36); Mean Corpuscular Hemoglobin 31 pg (27-31); Mean Corpuscular Volume 90 fL (80-94); Mean Platelet Volume 8.3 um3 (7.4-10.4); Nucleated Red Blood Cells % 0; Platelet Count 245 10^3/ul (150-450); Red Blood Count 3.44 10^6/ul (4.0-5.4); Red Cell Distribution Width 15 % (10.5-15); White Blood Count 8.3 10^3/ul (3.5-10.8)
[2017-12-18] MEDS ORDERED: Dextrose 50% Syringe 50 ML* 25 GM/50 ML SYRINGE IV PUSH PRN (18:38)
[2017-12-18 18:41] LABS: EGFR Non-African American 37.7 (>60)
--- NOTE | 2017-12-18 18:48 | ED ---
Lamont Tello Gabriel, scribed for Pedrito Hutchinson MD on 12/18/17 at 1655 . Skin Complaint - HPI Summary HPI Summary: This patient is a 72 year old M presenting to [facility] with a chief complaint of left leg pain and a possible infection following a cardiac bypass that was done 3 weeks ago. The patient rates the pain 6/10 in severity. Symptoms aggravated by ambulating, pt states he cannot ambulate without crutches. Patient reports swelling and erythema. Pt states he has been wearing compression stockings until he noticed pain several days ago, when he removed them he noticed redness of his left foot. Pt was seen in the ED on 12-15-17 and sent home with abx and dx with cellulitis. Today he saw his planning consultant and was sent here for a work up. - History of Current Complaint Chief Complaint: EDExtremityLower Time Seen by Provider: 12/18/17 16:25 Stated Complaint: LT FOOT SWELLING Hx Obtained From: Patient Onset/Duration: Started Days Ago, Still Present, Worse Since - today Skin Exposure Onset/Duration: Days Ago Timing: Constant Onset Severity: Mild Current Severity: Moderate Pain Intensity: 6 Pain Scale Used: 0-10 Numeric Skin Location: Foot - left Character: Swelling, Redness - Allergy/Home Medications Allergies/Adverse Reactions: Allergies Allergy/AdvReac Type Severity Reaction Status Date / Time No Known Allergies Allergy Verified 12/18/17 15:33 Home Medications: Home Medications Atorvastatin* [Lipitor*] 80 mg PO DAILY 12/18/17 [History Confirmed 12/18/17] Gemfibrozil TAB* [Lopid TAB*] 300 mg PO BID 12/18/17 [History Confirmed ] HYDROcodone/ACETAMIN 5-325 MG* [[place] 5-325 TAB*] 1 tab PO Q4H PRN 12/18/17 [ History Confirmed 12/18/17] Hydrochlorothiazide TAB* [Hydrodiuril TAB*] 25 mg PO DAILY 12/18/17 [History Confirmed 12/18/17] Insulin Degludec [Tresiba Flextouch U-100] 45 units SUBCUT DAILY 12/18/17 [ History Confirmed 12/18/17] Insulin NPH Human Isophane [Novolin N Relion] 0 - 20 unit SUBCUT TID 12/18/17 [ History Confirmed 12/18/17] Lisinopril [Lisinopril 30 MG-] 30 mg PO DAILY 12/18/17 [History Confirmed ] Metoprolol Succinate XL TAB* [Toprol XL TAB*] 25 mg PO DAILY 12/18/17 [History Confirmed 12/18/17] Niacin ER TAB* [Niaspan ER TAB*] 500 mg PO QPM 12/18/17 [History Confirmed 12/18] Potassium Chloride [Klor-Con M20] 20 meq PO DAILY 12/18/17 [History Confirmed ] Torsemide TAB* [Demadex*] 20 mg PO QAM 12/18/17 [History Confirmed 12/18/17] metFORMIN* [Glucophage 1000 MG TAB *] 1,000 mg PO BID 12/18/17 [History Confirmed 12/18/17] PMH/Surg Hx/FS Hx/Imm Hx Endocrine/Hematology History: Reports: Hx Diabetes Denies: Hx Thyroid Disease Cardiovascular History: Reports: Hx Hypertension Respiratory History: Denies: Hx Asthma, Hx Chronic Obstructive Pulmonary Disease (COPD) GI History: Denies: Hx Ulcer - Surgical History Surgery Procedure, Year, and Place: Knee replacement right knee, right shoulder replacement, fingers left hand repair, cardiac stents, cardiac bypass 11/12 Infectious Disease History: No Infectious Disease History: Denies: Hx Hepatitis, Hx Human Immunodeficiency Virus (HIV), History Other Infectious Disease, Traveled Outside the [place] in Last 30 Days - Family History Known Family History: Positive: Cardiac Disease, Hypertension - Social History Alcohol Use: None Substance Use Type: Reports: None Smoking Status (MU): Former Smoker Type: Cigarettes Review of Systems Positive: Edema - Left foot , Other - LLE pain Positive: Other - erythema and streaking of left foot All Other Systems Reviewed And Are Negative: Yes Physical Exam - Summary Physical Exam Summary: Appearance: The patient is well-nourished in no acute distress and in no acute pain. Skin: there is red streaking on the left foot into the ankle. Onychomycosis HEENT: The head is normocephalic and atraumatic. The pupils are equal and reactive. The conjunctivae are clear and without drainage. Nares are patent and without drainage. Mouth reveals moist mucous membranes and the throat is without erythema and exudate. The external ears are intact. The ear canals are patent and without drainage. The tympanic membranes are intact. Neck: the neck is supple with full range of motion and non-tender. There are no carotid bruits. There is no neck vein distension. Respiratory: Chest is non-tender. Lungs are clear to auscultation and breath sounds are symmetrical and equal. Cardiovascular: Heart is regular rate and rhythm. There is no murmur or rub auscultated. There is no peripheral edema and pulses are symmetrical and equal. Abdomen: The abdomen is soft and non-tender. There are normal bowel sounds heard in all four quadrants and there is no organomegaly palpated. Musculoskeletal: There is no back tenderness noted. Extremities are non-tender with full range of motion. There is good capillary refill. There is no peripheral edema or calf tenderness elicited. Neurological: Patient is alert and oriented to person, place and time. The patient has symmetrical motor strength in all four extremities. Cranial nerves are grossly intact. Deep tendon reflexes are symmetrical and equal in all four extremities. Psychiatric: The patient has an appropriate affect and does not exhibit any anxiety or depression. Triage Information Reviewed: Yes Vital Signs On Initial Exam: Initial Vitals Temp Pulse Resp BP Pulse Ox 97.9 F 67 20 128/65 97 12/18/17 15:18 12/18/17 15:18 12/18/17 15:18 12/18/17 15:18 12/18/17 15:18 Vital Signs Reviewed: Yes Diagnostics - Vital Signs Vital Signs Temp Pulse Resp BP Pulse Ox 12/18/17 16:43 70 24 104/75 95 12/18/17 16:13 76 148/69 95 12/18/17 15:18 97.9 F 67 20 128/65 97 - Laboratory Lab Results: Lab Results 12/18/17 12/18/17 12/18/17 Range/Units 18:01 18:01 18:01 WBC 8.3 (3.5-10.8) 10^3/ul RBC 3.44 L (4.0-5.4) 10^6/ul Hgb 10.5 L (14.0-18.0) g/dl Hct 31 L (42-52) % MCV 90 (80-94) fL MCH 31 (27-31) pg MCHC 34 (31-36) g/dl RDW 15 (10.5-15) % Plt Count 245 (150-450) 10^3/ul MPV 8.3 (7.4-10.4) um3 Neut % (Auto) 74.2 (38-83) % Lymph % (Auto) 14.6 L (25-47) % [place] % (Auto) 7.5 H (0-7) % Eos % (Auto) 3.0 (0-6) % Baso % (Auto) 0.7 (0-2) % Absolute Neuts (auto) 6.1 (1.5-7.7) 10^3/ul Absolute Lymphs (auto) 1.2 (1.0-4.8) 10^3/ul Absolute Monos (auto) 0.6 (0-0.8) 10^3/ul Absolute Eos (auto) 0.2 (0-0.6) 10^3/ul Absolute Basos (auto) 0.1 (0-0.2) 10^3/ul Absolute Nucleated RBC 0 10^3/ul Nucleated RBC % 0 Sodium 139 (139-145) mmol/L Potassium 3.7 (3.5-5.0) mmol/L Chloride 101 (101-111) mmol/L Carbon Dioxide 29 (22-32) mmol/L Anion Gap 9 (2-11) mmol/L BUN 34 H (6-24) mg/dL Creatinine 1.78 H (0.67-1.17) mg/dL Est GFR ( Amer) 48.4 (>60) Est GFR (Non-Af Amer) 37.7 (>60) BUN/Creatinine Ratio 19.1 (8-20) Glucose 126 H (70-100) mg/dL Lactic Acid 0.9 (0.5-2.0) mmol/L Calcium 9.0 (8.6-10.3) mg/dL Total Bilirubin 0.40 (0.2-1.0) mg/dL AST 13 (13-39) U/L ALT 9 (7-52) U/L Alkaline Phosphatase 74 (34-104) U/L C-Reactive Protein 115.47 H (< 5.00) mg/L Total Protein 6.6 (6.4-8.9) g/dL Albumin 3.5 (3.2-5.2) g/dL Globulin 3.1 (2-4) g/dL Albumin/Globulin Ratio 1.1 (1-3) Result Diagrams: 12/18/17 18:01 12/18/17 18:01 Lab Statement: Any lab studies that have been ordered have been reviewed, and results considered in the medical decision making process. Course/Dx - Course Course Of Treatment: Mr. El presents with the complaint that the infection in his foot is getting worse. He reports that it was just over the very distal aspect of his left foot when he was here before and he was given Bactrim which she has taken. Now the infection has spread up to the proximal portion of the dorsum of his foot and although it is not severe, I am concerned that he is diabetic and failing outpatient antibiotics. I have asked the hospitalist to evaluate him and he has gotten a dose of Ancef in the emergency department. - Diagnoses Provider Diagnoses: Cellulitis - Physician Notifications Discussed Care Of Patient With: Omar Beard Time Discussed With Above Provider: 17:48 Instructed by Provider To: Admit As Inpatient Discharge - Sign-Out/Discharge Documenting (check all that apply): Discharge/Admit/Transfer - admitted to Dr. Beard - Discharge Plan Condition: Fair Disposition: ADMITTED TO [facility] Referrals: Priya Brooks MD [Primary Care Provider] - - Billing Disposition and Condition Condition: FAIR Disposition: [facility] The documentation as recorded by the Lamont duran Gabriel accurately reflects the service I personally performed and the decisions made by me, Pedrito Hutchinson MD.
[2017-12-18] MEDS ORDERED: ceFAZolin 1 GM in Dextrose (*) 1 GM/50 ML BAG IVPB ONE (19:00)
[2017-12-18] MEDS ORDERED: Gemfibrozil TAB* 600 MG PO SCH (21:00)
[2017-12-18] MEDS ORDERED: Insulin GLARGINE(*) 1 UNITS UNIT SUBCUT SCH (21:00)
[2017-12-18] MEDS: NS 0.9% 1000 ML* 1,000 ML IV SCH (21:33)
[2017-12-18] MEDS: Heparin VIAL(*) 5000 UNITS/ML VIAL (FIVE THOUSAND) SUBCUT SCH (21:33)
--- NOTE | 2017-12-18 21:53 | HP ---
CC: Dr. Priya Brooks * HISTORY AND PHYSICAL: DATE OF ADMISSION: 12/18/17 PRIMARY CARE PROVIDER: Dr. Priya Brooks. ATTENDING PHYSICIAN: Dr. Kam Beard * (dictated by Martha Martinez NP) HISTORY OF PRESENT ILLNESS: Mr. El is a 72-year-old male with past medical history significant for hypertension, diabetes mellitus, hyperlipidemia, chronic kidney disease secondary to diabetes and coronary artery disease, who underwent 3 cardiac stents in 2008 and then a 4-vessel coronary artery bypass graft on 11/12/17. The patient states that he spent approximately 1 week in [place] in the hospital post CABG. He states that he was doing well and was discharged home. He states that on 12/16/17, he noticed some swelling in his left foot, so his removed his compression stockings that had been in place since the surgery as the visiting nurses instructed him to leave them on at all times. When they removed his compression stockings, he noticed redness to his left foot. He presented to the emergency room on that day and was diagnosed with cellulitis and started on Bactrim. The patient states he has been taking Bactrim twice a day since then (12/16/17). He denies any fevers, chills, chest pain, shortness of breath, nausea, vomiting, abdominal pain. He is unclear if the redness has worsened or not. Due to the continued redness, he decided to see his poultice machine operator today, who sent him to the emergency room for further evaluation. While in the emergency room, the patient had labs that were unremarkable with the exception of an elevated creatinine above his baseline and a CRP of 115.47. The patient states that his poultice machine operator had drawn a line on his foot. He is unsure if ut was at the area of redness, but currently in the emergency room, the area of erythema is smaller than the line drawn on his leg. He has been trying to keep his leg up as much as possible at home. Due to the suspected failure of outpatient antibiotics, the Hospitalists were asked to evaluate the patient for admission. PAST MEDICAL HISTORY: 1. Hypertension. 2. Diabetes mellitus. 3. Coronary artery disease. 4. Hyperlipidemia. 5. Chronic kidney disease. PAST SURGICAL HISTORY: 1. Status post bilateral cataract extractions. 2. Status post coronary artery bypass graft on 11/12/17 of 4 vessels. 3. Status post right total knee arthroplasty. 4. Status post right total shoulder replacement. 5. Status post a repair of the left hand fingers that were amputated. 6. Status post cardiac catheterization with 3 stents placed in 2008. HOME MEDICATIONS: Include: 1. Metformin 1000 mg oral twice daily. 2. Tresiba insulin 45 units subcutaneous daily. 3. Insulin NPH 0 to 20 units subcutaneous 3 times daily with meals. 4. Lisinopril 30 mg oral daily. 5. Hydrochlorothiazide 25 mg oral daily. 6. Lopid 300 mg oral twice daily. 7. Atorvastatin 80 mg oral daily. 8. Potassium chloride 20 mEq oral daily. 9. Torsemide 20 mEq oral daily. The patient's last day of his 10-day dosing was today. 10. Niacin ER 500 mg oral every evening. 11. Bactrim DS 1 tablet oral twice daily. 12. Metoprolol succinate 25 mg oral daily. 13. [place] 5/325 one tablet oral every 4 hours as needed for pain. ALLERGIES: No known drug allergies. FAMILY HISTORY: The patient's father passed at age 55 from an NM. He has 2 brothers with a history of diabetes mellitus and a twin brother, who passed from renal carcinoma in his 50s. SOCIAL HISTORY: He quit smoking 30 years ago. Prior to that, he had a long 2- pack- a-day smoking history. He denies alcohol, recreational drug use. His , Juliette El, will be his surrogate decision maker in the event he is unable to make decisions for himself. REVIEW OF SYSTEMS: I performed an 11-point review of systems. All the pertinent positives and negatives are mentioned in the history of present illness. The remaining review of systems are negative. PHYSICAL EXAMINATION GENERAL APPEARANCE: The patient is alert, pleasant and appears to be in no acute distress. HEENT: Normocephalic, atraumatic. Pupils are equal and reactive to light. Extraocular movements are intact. RESPIRATORY: There is no accessory muscle use. The lungs are clear to auscultation bilaterally. CARDIOVASCULAR: Regular rate and rhythm. S1, S2 present. There are no murmurs , rubs, or gallops heard. ABDOMEN: Soft, nondistended, nontender. There are bowel sounds present x4. EXTREMITIES: There is mild bilateral lower extremity edema with the left lower extremity slightly more edematous than the right. DP and PT pulses are 2+ and symmetric. MUSCULOSKELETAL: There is no clubbing or cyanosis noted. The patient exhibits good strength in all extremities. NEUROLOGICAL: The patient is alert and oriented x4. Cranial nerves II through XII are grossly intact. PSYCHOLOGICAL: The patient is calm and cooperative. SKIN: He has a healing sternal incision, which is well approximated with no signs of infection and he also has 2 incisions to his left leg, one up on his thigh and the other below his knee that are well approximated with no signs of infection, that were his vein harvest sites. His left dorsal aspect of his foot has erythema that goes up past his ankle and slightly up his macario. There is a marker outlined that is larger than the current area of erythema. DIAGNOSTIC STUDIES/LABORATORY DATA: Sodium 139, potassium 3.7, chloride 104, CO2 29, BUN 34, creatinine 1.78, glucose 126. White blood cell count 8.3, hemoglobin 10.5, hematocrit 31, platelet count 245. CRP 115.47. IMPRESSION: Mr. El is a 72-year-old male with past medical history significant for hypertension, hyperlipidemia, coronary artery disease, diabetes mellitus, and chronic kidney disease, who presented to the emergency room for the second time this week for left lower extremity cellulitis that failed outpatient treatment. He will be admitted as an inpatient for cellulitis. ASSESSMENT/PLAN: 1. Cellulitis. The patient has failed almost 3 days of Bactrim outpatient. He has no leukocytosis and he is afebrile. The patient is really uncertain if the erythema has changed, although his CRP has increased from 45 on 12/15/17 to 115 today. The patient had blood cultures drawn. He will be continued on cefazolin. He is currently not showing signs of sepsis and is nontoxic appearing. While in the emergency room on 12/15/17, he underwent a left lower extremity venous Doppler study showing no sonographic evidence for deep vein thrombosis. 2. Acute on chronic kidney disease. The patient appears to have a baseline creatinine of around 1.3 to 1.4. He was elevated to 1.5 on 12/15/17 and is 1.78 today. I suspect this is in the setting of being on torsemide postoperatively. In addition, the patient has orders for metformin, hydrochlorothiazide, and lisinopril. I do not see where the lisinopril and hydrochlorothiazide have been filled or sent to the pharmacy since September. I am unsure if he was actually taking these at this time and I am going to hold all of the previously stated medications. We will give him IV fluids tonight and recheck his renal function in the morning. 2. Anemia. The patient appears to be more anemic than when he was previously here in August and September and 3 days prior. He denies any signs of bleeding, but we will check his stool for occult blood. In the past, he has had some hemoglobins around 8 and 9 and then had gone back up to 12 and 13. 3. Diabetes mellitus. The patient will have fingersticks a.c. and h.s. He will be continued on basal insulin and placed on a lispro sliding scale. I am going to hold his metformin. 4. Hyperlipidemia. The patient will be continued on his home atorvastatin and niacin. I am going to hold his Lopid as it is contraindicated in the setting of worsening renal function and can cause rhabdomyolysis. 5. Hypertension. The patient will be continued on his metoprolol succinate. Again, I am going to hold the lisinopril and hydrochlorothiazide as I am unclear if he has been taking these and we will have to re-reconcile his medications in the morning. 6. Coronary artery disease. The patient will be continued on his metoprolol, statin. He is not currently on aspirin. 7. Fluids, electrolytes and nutrition. He will be on a consisting carbohydrate , heart-healthy diet. 8. Code status. Full code. 9. DVT prophylaxis. He is at moderate risk and will have subcu heparin. 10. Disposition. Inpatient. TIME SPENT: Time for this admission was approximately 60 minutes, greater than half of that was spent with the patient discussing medications, past medical history, the events leading up to his arrival today, and performing a physical examination. The case has been reviewed with the attending, Dr. Kam Beard. Reviewed by ANGELA SMITH 12/30/17 0919 [id number]/[facility] #: [id number] BHARATI
[2017-12-19] MEDS: ceFAZolin 1 GM VIAL(*) 1 GM in D5W 50 ML BAG* 50 ML IVPB SCH ×3 (02:47→17:33)
[2017-12-19] MEDS: HYDROcodone/ACETAMIN 5-325 MG* 1 TAB PO PRN ×2 (05:03→16:33)
[2017-12-19] MEDS: Heparin VIAL(*) 5000 UNITS/ML VIAL (FIVE THOUSAND) SUBCUT SCH ×3 (05:05→21:02)
[2017-12-19 06:17] LABS: ABS Basophils 0.1 10^3/ul (0-0.2); ABS Eosinophils 0.3 10^3/ul (0-0.6); ABS Lymphocytes 1.2 10^3/ul (1.0-4.8); ABS Monocytes 0.5 10^3/ul (0-0.8); ABS Nucleated RBC 0 10^3/ul; Eosinophil % 5.1 % (0-6); Hematocrit 30 % (42-52); Lymphocyte % 19.4 % (25-47); Mean Corpuscular HGB Conc 34 g/dl (31-36); Mean Corpuscular Hemoglobin 30 pg (27-31); Mean Corpuscular Volume 90 fL (80-94); Mean Platelet Volume 8.3 um3 (7.4-10.4); Nucleated Red Blood Cells % 0; Platelet Count 230 10^3/ul (150-450); Red Blood Count 3.28 10^6/ul (4.0-5.4); Red Cell Distribution Width 15 % (10.5-15); White Blood Count 6.2 10^3/ul (3.5-10.8)
[2017-12-19 06:34] LABS: EGFR Non-African American 52.3 (>60)
[2017-12-19] MEDS: NS 0.9% 1000 ML* 1,000 ML IV SCH (07:56)
[2017-12-19] MEDS ORDERED: Insulin GLARGINE(*) 1 UNITS UNIT SUBCUT SCH ×2 (08:00→20:00)
--- NOTE | 2017-12-19 08:18 | PN ---
Subjective Date of Service: 12/19/17 Interval History: Patient reports he is feeling better today but still feels under the weather. Denies any fever or chills. No N/V/D. Reports his left foot still hurts and sensitive to touch. Objective Active Medications: Hydrocodone Bitart/Acetaminophen ([place] 5-325 Tab*) 1 tab PO Q4H PRN PRN Reason: PAIN Last Admin: 12/19/17 05:03 Dose: 1 tab Atorvastatin Calcium (Lipitor*) 80 mg PO DAILY [facility] Dextrose (D50w Syringe 50 Ml*) 12.5 gm IV PUSH .FOR FS < 60 - SS PRN PRN Reason: FS < 60 Heparin Sodium (Porcine) (Heparin Vial(*)) 5,000 units SUBCUT Q8HR [facility] Last Admin: 12/19/17 05:05 Dose: 5,000 units Cefazolin Sodium 1 gm/ (Dextrose) 50 mls @ 200 mls/hr IVPB Q8H [facility] Last Admin: 12/19/17 02:47 Dose: 200 mls/hr Sodium Chloride (Ns 0.9% 1000 Ml*) 1,000 mls @ 100 mls/hr IV PER RATE [facility] Last Admin: 12/19/17 07:56 Dose: 100 mls/hr Insulin Glargine (Lantus(*)) 45 units SUBCUT Q24H [facility] Insulin Human Lispro (Humalog*) 0 - 10 units SUBCUT AC [facility] PRN Reason: Protocol Metoprolol Succinate (Toprol Xl Tab*) 25 mg PO DAILY [facility] Niacin (Niaspan Er Tab*) 500 mg PO QPM [facility] Potassium Chloride (Klor Con Er Tab*) 20 meq PO DAILY [facility] Vital Signs - 8 hr 12/19/17 12/19/17 12/19/17 03:54 05:03 07:21 Temperature 98.2 F 98.2 F Pulse Rate 56 50 Respiratory 18 17 16 Rate Blood Pressure 161/62 167/64 (mmHg) O2 Sat by Pulse 100 97 Oximetry 12/19/17 07:57 Temperature Pulse Rate Respiratory 16 Rate Blood Pressure (mmHg) O2 Sat by Pulse Oximetry Oxygen Devices in Use Now: None Appearance: 72 yo male A+O x3 sitting up in bed in NAD Eyes: No Scleral Icterus, PERRLA Ears/Nose/Mouth/Throat: NL Teeth, Lips, Gums, Mucous Membranes Moist Neck: NL Appearance and Movements; NL JVP Respiratory: Symmetrical Chest Expansion and Respiratory Effort, Clear to Auscultation Cardiovascular: NL Sounds; No Murmurs; No JVD, RRR, No Edema Abdominal: NL Sounds; No Tenderness; No Distention Skin: - - left (top) of foot has large area of erythema with marked line around which now appears smaller than outline. No open areas. Tender to palpation Neurological: Alert and Oriented x 3, NL Sensation, NL Muscle Strength and Tone Lines/Tubes/Other Access: Clean, Dry and Intact Peripheral IV Nutrition: Taking PO's Result Diagrams: 12/19/17 05:42 12/19/17 05:42 Additional Lab and Data: Lab Results 12/18/17 12/18/17 12/18/17 Range/Units 18:01 18:01 18:01 WBC 8.3 (3.5-10.8) 10^3/ul RBC 3.44 L (4.0-5.4) 10^6/ul Hgb 10.5 L (14.0-18.0) g/dl Hct 31 L (42-52) % MCV 90 (80-94) fL MCH 31 (27-31) pg MCHC 34 (31-36) g/dl RDW 15 (10.5-15) % Plt Count 245 (150-450) 10^3/ul MPV 8.3 (7.4-10.4) um3 Neut % (Auto) 74.2 (38-83) % Lymph % (Auto) 14.6 L (25-47) % [place] % (Auto) 7.5 H (0-7) % Eos % (Auto) 3.0 (0-6) % Baso % (Auto) 0.7 (0-2) % Absolute Neuts (auto) 6.1 (1.5-7.7) 10^3/ul Absolute Lymphs (auto) 1.2 (1.0-4.8) 10^3/ul Absolute Monos (auto) 0.6 (0-0.8) 10^3/ul Absolute Eos (auto) 0.2 (0-0.6) 10^3/ul Absolute Basos (auto) 0.1 (0-0.2) 10^3/ul Absolute Nucleated RBC 0 10^3/ul Nucleated RBC % 0 Sodium 139 (139-145) mmol/L Potassium 3.7 (3.5-5.0) mmol/L Chloride 101 (101-111) mmol/L Carbon Dioxide 29 (22-32) mmol/L Anion Gap 9 (2-11) mmol/L BUN 34 H (6-24) mg/dL Creatinine 1.78 H (0.67-1.17) mg/dL Est GFR ( Amer) 48.4 (>60) Est GFR (Non-Af Amer) 37.7 (>60) BUN/Creatinine Ratio 19.1 (8-20) Glucose 126 H (70-100) mg/dL Lactic Acid 0.9 (0.5-2.0) mmol/L Calcium 9.0 (8.6-10.3) mg/dL Total Bilirubin 0.40 (0.2-1.0) mg/dL AST 13 (13-39) U/L ALT 9 (7-52) U/L Alkaline Phosphatase 74 (34-104) U/L C-Reactive Protein 115.47 H (< 5.00) mg/L Total Protein 6.6 (6.4-8.9) g/dL Albumin 3.5 (3.2-5.2) g/dL Globulin 3.1 (2-4) g/dL Albumin/Globulin Ratio 1.1 (1-3) Assess/Plan/Problems-Billing Assessment: Mr. El is a 72 yo with a PMH of HTN, HLD, DMII, CKD, CAD s/p 3 stents in 2008 and 4-vessel CABG 11/12/2017 who recently was diagnosed with cellulitis left foot being treated with Bactrim who saw his Shake Out Worker and was sent to the emergency department for further evaluation for concern of his left foot cellulitis. - Patient Problems (1) Cellulitis Comment: - improving - afebrile, no leukocytosis - Continue Cefazolin - Await blood cx. - recheck labs in am (2) Type 2 diabetes mellitus Comment: - controlled. Continue FSBG ACHS with Lispro SS (3) Anemia Comment: - stable, appears chronic - add on iron studies (4) CKD (chronic kidney disease) Comment: - acute AYDEN resolved with IVFs, now at baseline creatinine 1.3 (5) HTN (hypertension) Comment: - slightly hypertensive. Restart home dose lisinopril. Hold HCTZ (6) DVT prophylaxis Comment: HSQ (7) Full code status Status and Disposition: inpatient. IV antibiotics/Cellulitis. Possible DC to home tomorrow or Thursday.
[2017-12-19] MEDS: Potassium Chlor TAB* 20 MEQ TAB.ER PO SCH (08:25)
[2017-12-19] MEDS: Metoprolol Succinate XL TAB* 25 MG PO SCH (08:25)
[2017-12-19] MEDS: Atorvastatin* 80 MG TAB PO SCH (08:25)
[2017-12-19] MEDS: Insulin LISPRO* 1 UNITS UNIT SUBCUT SCH ×3 (08:25→17:18)
[2017-12-19] MEDS ORDERED: Lisinopril TAB* 10 MG PO ONE (14:43)
[2017-12-19] MEDS ORDERED: Niacin ER TAB* 500 MG PO SCH ×2 (18:00)
[2017-12-20] MEDS: HYDROcodone/ACETAMIN 5-325 MG* 1 TAB PO PRN ×2 (02:17→07:38)
[2017-12-20] MEDS: ceFAZolin 1 GM VIAL(*) 1 GM in D5W 50 ML BAG* 50 ML IVPB SCH ×2 (02:17→10:15)
[2017-12-20 06:14] LABS: ABS Basophils 0.1 10^3/ul (0-0.2); ABS Eosinophils 0.4 10^3/ul (0-0.6); ABS Lymphocytes 1.3 10^3/ul (1.0-4.8); ABS Monocytes 0.5 10^3/ul (0-0.8); ABS Neutrophils 2.9 10^3/ul (1.5-7.7); ABS Nucleated RBC 0 10^3/ul; Hematocrit 30 % (42-52); Hemoglobin 10.4 g/dl (14.0-18.0); Lymphocyte % 25.9 % (25-47); Mean Corpuscular HGB Conc 34 g/dl (31-36); Mean Corpuscular Hemoglobin 30 pg (27-31); Mean Corpuscular Volume 89 fL (80-94); Mean Platelet Volume 8.2 um3 (7.4-10.4); Nucleated Red Blood Cells % 0; Platelet Count 261 10^3/ul (150-450); Red Blood Count 3.43 10^6/ul (4.0-5.4); Red Cell Distribution Width 14 % (10.5-15); White Blood Count 5.1 10^3/ul (3.5-10.8)
[2017-12-20 06:40] LABS: EGFR Non-African American 63.6 (>60)
[2017-12-20] MEDS: Heparin VIAL(*) 5000 UNITS/ML VIAL (FIVE THOUSAND) SUBCUT SCH (06:47)
[2017-12-20] MEDS: NS 0.9% 1000 ML* 1,000 ML IV SCH (07:40)
[2017-12-20] MEDS: Atorvastatin* 80 MG TAB PO SCH (08:27)
[2017-12-20] MEDS: Insulin LISPRO* 1 UNITS UNIT SUBCUT SCH (08:27)
[2017-12-20] MEDS: Potassium Chlor TAB* 20 MEQ TAB.ER PO SCH (08:28)
[2017-12-20] MEDS: Metoprolol Succinate XL TAB* 25 MG PO SCH (08:28)
[2017-12-20] MEDS ORDERED: Lisinopril TAB* 10 MG PO SCH (09:00)
--- NOTE | 2017-12-20 09:55 | DCNOTE ---
Subjective Date of Service: 12/20/17 Interval History: Patient reports he feels much better today with noted less redness and tenderness to left foot. He denies fever/chills. No N/V/D. Reports good appetite. Would like to go home. He has a scheduled f/u with PCP on Thursday Objective Active Medications: Hydrocodone Bitart/Acetaminophen ([place] 5-325 Tab*) 1 tab PO Q4H PRN PRN Reason: PAIN Last Admin: 12/20/17 07:38 Dose: 1 tab Atorvastatin Calcium (Lipitor*) 80 mg PO DAILY [facility] Last Admin: 12/20/17 08:27 Dose: 80 mg Dextrose (D50w Syringe 50 Ml*) 12.5 gm IV PUSH .FOR FS < 60 - SS PRN PRN Reason: FS < 60 Heparin Sodium (Porcine) (Heparin Vial(*)) 5,000 units SUBCUT Q8HR [facility] Last Admin: 12/20/17 06:47 Dose: 5,000 units Cefazolin Sodium 1 gm/ (Dextrose) 50 mls @ 200 mls/hr IVPB Q8H [facility] Last Admin: 12/20/17 02:17 Dose: 200 mls/hr Sodium Chloride (Ns 0.9% 1000 Ml*) 1,000 mls @ 100 mls/hr IV PER RATE [facility] Last Admin: 12/20/17 07:40 Dose: 100 mls/hr Insulin Glargine (Lantus(*)) 45 units SUBCUT Q24H [facility] Last Admin: 12/19/17 21:01 Dose: 45 units Insulin Human Lispro (Humalog*) 0 - 10 units SUBCUT AC [facility] PRN Reason: Protocol Last Admin: 12/20/17 08:27 Dose: 1 units Lisinopril (Prinivil Tab*) 30 mg PO DAILY [facility] Last Admin: 12/20/17 08:28 Dose: 30 mg Metoprolol Succinate (Toprol Xl Tab*) 25 mg PO DAILY [facility] Last Admin: 12/20/17 08:28 Dose: 25 mg Niacin (Niaspan Er Tab*) 500 mg PO QPM [facility] Last Admin: 12/19/17 17:33 Dose: 500 mg Potassium Chloride (Klor Con Er Tab*) 20 meq PO DAILY [facility] Last Admin: 12/20/17 08:28 Dose: 20 meq Vital Signs - 8 hr 12/20/17 12/20/17 12/20/17 02:17 03:16 03:17 Temperature 98.0 F Pulse Rate 54 Respiratory 18 18 16 Rate Blood Pressure 157/68 (mmHg) O2 Sat by Pulse 99 Oximetry 12/20/17 12/20/17 06:47 07:38 Temperature Pulse Rate Respiratory 18 20 Rate Blood Pressure (mmHg) O2 Sat by Pulse Oximetry Oxygen Devices in Use Now: None Appearance: A+O x3 in NAD. Eyes: No Scleral Icterus, PERRLA Ears/Nose/Mouth/Throat: NL Teeth, Lips, Gums, Mucous Membranes Moist Neck: NL Appearance and Movements; NL JVP Respiratory: Symmetrical Chest Expansion and Respiratory Effort, Clear to Auscultation Cardiovascular: NL Sounds; No Murmurs; No JVD, RRR, No Edema Abdominal: NL Sounds; No Tenderness; No Distention Lymphatic: No Cervical Adenopathy Extremities: No Clubbing, Cyanosis Skin: - - left foot erythema (mild), mild edema, slightly warm. Neurological: Alert and Oriented x 3, NL Sensation, NL Muscle Strength and Tone Lines/Tubes/Other Access: Clean, Dry and Intact Peripheral IV Nutrition: Taking PO's Result Diagrams: 12/20/17 05:45 12/20/17 05:45 Additional Lab and Data: Lab Results 12/18/17 12/18/17 12/18/17 Range/Units 18:01 18:01 18:01 WBC 8.3 (3.5-10.8) 10^3/ul RBC 3.44 L (4.0-5.4) 10^6/ul Hgb 10.5 L (14.0-18.0) g/dl Hct 31 L (42-52) % MCV 90 (80-94) fL MCH 31 (27-31) pg MCHC 34 (31-36) g/dl RDW 15 (10.5-15) % Plt Count 245 (150-450) 10^3/ul MPV 8.3 (7.4-10.4) um3 Neut % (Auto) 74.2 (38-83) % Lymph % (Auto) 14.6 L (25-47) % [place] % (Auto) 7.5 H (0-7) % Eos % (Auto) 3.0 (0-6) % Baso % (Auto) 0.7 (0-2) % Absolute Neuts (auto) 6.1 (1.5-7.7) 10^3/ul Absolute Lymphs (auto) 1.2 (1.0-4.8) 10^3/ul Absolute Monos (auto) 0.6 (0-0.8) 10^3/ul Absolute Eos (auto) 0.2 (0-0.6) 10^3/ul Absolute Basos (auto) 0.1 (0-0.2) 10^3/ul Absolute Nucleated RBC 0 10^3/ul Nucleated RBC % 0 Sodium 139 (139-145) mmol/L Potassium 3.7 (3.5-5.0) mmol/L Chloride 101 (101-111) mmol/L Carbon Dioxide 29 (22-32) mmol/L Anion Gap 9 (2-11) mmol/L BUN 34 H (6-24) mg/dL Creatinine 1.78 H (0.67-1.17) mg/dL Est GFR ( Amer) 48.4 (>60) Est GFR (Non-Af Amer) 37.7 (>60) BUN/Creatinine Ratio 19.1 (8-20) Glucose 126 H (70-100) mg/dL Lactic Acid 0.9 (0.5-2.0) mmol/L Calcium 9.0 (8.6-10.3) mg/dL Total Bilirubin 0.40 (0.2-1.0) mg/dL AST 13 (13-39) U/L ALT 9 (7-52) U/L Alkaline Phosphatase 74 (34-104) U/L C-Reactive Protein 115.47 H (< 5.00) mg/L Total Protein 6.6 (6.4-8.9) g/dL Albumin 3.5 (3.2-5.2) g/dL Globulin 3.1 (2-4) g/dL Albumin/Globulin Ratio 1.1 (1-3) Assess/Plan/Problems-Billing Assessment: Mr. El is a 72 yo with a PMH of HTN, HLD, DMII, CKD, CAD s/p 3 stents in 2008 and 4-vessel CABG 11/12/2017 who recently was diagnosed with cellulitis left foot being treated with Bactrim who saw his Aerial Survey Technician and was sent to the emergency department for further evaluation for concern of his left foot cellulitis. - Patient Problems (1) Cellulitis Comment: - improving - afebrile, no leukocytosis - DC IV Cefazolin, plan for DC home on PO abx, f/u with PCP - Blood cx. negative Day 1 - recheck labs in am (2) Type 2 diabetes mellitus Comment: - controlled. Restart home meds (3) Anemia Comment: - stable, appears chronic - iron studies normal. f/u with PCP (4) CKD (chronic kidney disease) Comment: - acute AYDEN resolved with IVFs, now at baseline creatinine 1.3 (5) HTN (hypertension) Comment: - Restart home meds (6) DVT prophylaxis Comment: HSQ (7) Full code status Status and Disposition: inpatient.DC home today. f/u with PCP Thursday
[2017-12-20 10:46] VITALS: BP 154/79
--- NOTE | 2017-12-20 21:13 | DS ---
CC: Dr. Priya Brooks * DISCHARGE SUMMARY: DATE OF ADMISSION: 12/18/17 DATE OF DISCHARGE: 12/20/17 PROVIDER: Rod Gottlieb NP ATTENDING PHYSICIAN: Dr. Heart * (report dictated by Rod Gottlieb NP). PRIMARY CARE PROVIDER: Dr. Priya Brooks. DISCHARGE DIAGNOSIS: Left foot cellulitis. SECONDARY DIAGNOSES: 1. Hypertension. 2. Type 2 diabetes. 3. Coronary artery disease. 4. Hyperlipidemia. 5. Chronic kidney disease. HISTORY OF PRESENT ILLNESS AND HOSPITAL COURSE: Please see history and physical by Martha Fernando NP, for full admission details, but in summary this is a 72-year-old male with a past medical history as stated above, who was being treated for a left foot cellulitis with Bactrim as an outpatient for 2 days. The day of 12/18/17, he went to the electrocardiograph operator. The electrocardiograph operator was concerned and sent him to the emergency department for further evaluation of the left foot cellulitis. He had no leukocytosis and no signs of sepsis on admission. He was admitted for IV antibiotics as stated in the H and P due to failed p.o. Bactrim. The patient denied any fevers or chills. He was unclear if the redness had worsened or not. However, the cellulitis was noted to be significant and therefore, he was admitted for IV antibiotics. The erythema on his left foot has improved over hospitalization. Even though it is still present, the edema has reduced and the area of erythema is much improved since yesterday's assessment. The patient is stable to be discharged home on p.o. antibiotics. He has a followup appointment with his PCP on 12/22/17. It was noted that the patient's CRP on admission was elevated at 115.4. His creatinine was 1.78, which appears to be around similar labs from 2011; however , today his creatinine is 1.13, this was after he received IV fluids, so it is possible he may have presented slightly dehydrated. This was discussed with the patient to increase his water intake. He is also noted to be anemic with a hemoglobin of 10 and hematocrit of 30. His MCV is normal at 90. I did send iron studies, which were normal. I instructed the patient to follow up with his primary care provider. The patient is stable and ready for discharge to home. DISCHARGE MEDICATIONS: 1. Metformin 1000 mg p.o. b.i.d. 2. Insulin degludec 45 units subcu daily. 3. Insulin NPH 0 to 20 units subcu t.i.d. 4. Lisinopril 30 mg p.o. daily. 5. Hydrochlorothiazide 25 mg p.o. daily. 6. Lopid 300 mg p.o. b.i.d. 7. Atorvastatin 80 mg p.o. daily. 8. Potassium chloride 20 mEq p.o. daily. 9. Torsemide 20 mg p.o. q.a.m. 10. Niacin 500 mg p.o. q.p.m. 11. Metoprolol succinate XL 25 mg p.o. daily. 12. [place] 5/325 mg 1 tab p.o. q.4 hours p.r.n. 13. Augmentin 875 mg p.o. b.i.d. DISCHARGE PLAN: 1. The patient has already scheduled an appointment with Dr. Brooks, on Thursday , 12/22/17, in which he will keep for followup. 2. The patient was instructed to return to the emergency department if any worsening or concerning symptoms. TIME SPENT: Approximately 60 minutes was spent on this discharge. ROD GOTTLIEB NP [id number]/[facility] #: [id number]
== END 2017-12-20 11:35 | disposition home or self-care (01) | DRG 603 ==
LOC: ED 15:15 → INTOOBSV 18:17 → MED 18:17
PROVIDERS: ADMIT Internal Medicine; ATTEND Internal Medicine
DX: L03.116 Cellulitis of left lower limb (principal); N17.9 Acute kidney failure, unspecified; N18.9 Chronic kidney disease, unspecified; E11.22 Type 2 diabetes mellitus with diabetic chronic kidney disease; E78.5 Hyperlipidemia, unspecified; B35.1 Tinea unguium; I25.10 Atherosclerotic heart disease of native coronary artery without angina pectoris; I12.9 Hypertensive chronic kidney disease with stage 1 through stage 4 chronic kidney disease, or unspecified chronic kidney disease; Z96.651 Presence of right artificial knee joint; D63.1 Anemia in chronic kidney disease; Z96.611 Presence of right artificial shoulder joint; Z95.5 Presence of coronary angioplasty implant and graft; Z95.1 Presence of aortocoronary bypass graft; Z98.42 Cataract extraction status, left eye; Z98.41 Cataract extraction status, right eye; Z89.111 Acquired absence of right hand; Z79.4 Long term (current) use of insulin; Z83.3 Family history of diabetes mellitus; Z80.51 Family history of malignant neoplasm of kidney; Z87.891 Personal history of nicotine dependence; Z82.49 Family history of ischemic heart disease and other diseases of the circulatory system
CPT/HCPCS: 36415; 80048; 80053; 82728; 82746; 83540; 83550; 83605; 85025; 86140; 87040; 99284; A9270-GY; G0378; J0690; J1644

== ENCOUNTER 2018-01-18 09:49 | Emergency (ER) | payer MEDICARE, OTHER ==
[2018-01-18 10:17] VITALS: BP 184/70
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
== END 2018-01-18 11:41 | disposition home or self-care (01) ==
LOC: UCEAST 09:49
DX: S16.1XXA Strain of muscle, fascia and tendon at neck level, initial encounter (principal); V53.5XXA Driver of pick-up truck or van injured in collision with car, pick-up truck or van in traffic accident, initial encounter; Y93.89 Activity, other specified; Y92.410 Unspecified street and highway as the place of occurrence of the external cause; R07.89 Other chest pain; E11.9 Type 2 diabetes mellitus without complications; I11.9 Hypertensive heart disease without heart failure; Z95.1 Presence of aortocoronary bypass graft; Z95.5 Presence of coronary angioplasty implant and graft; Z96.651 Presence of right artificial knee joint; Z96.611 Presence of right artificial shoulder joint; Z82.49 Family history of ischemic heart disease and other diseases of the circulatory system; Z87.891 Personal history of nicotine dependence
CPT/HCPCS: 71046; 71120; 72125; 99212; G0463

== ENCOUNTER 2018-02-10 14:20 | Inpatient (IN) | payer MEDICARE ==
[2018-02-10 18:34] LABS: ABS Basophils 0 10^3/ul (0-0.2); ABS Eosinophils 0.1 10^3/ul (0-0.6); ABS Lymphocytes 1.2 10^3/ul (1.0-4.8); ABS Monocytes 0.6 10^3/ul (0-0.8); ABS Neutrophils 7.2 10^3/ul (1.5-7.7); ABS Nucleated RBC 0 10^3/ul; Eosinophil % 1.3 % (0-6); Hematocrit 37 % (42-52); Hemoglobin 12.3 g/dl (14.0-18.0); Lymphocyte % 13.1 % (25-47); Mean Corpuscular HGB Conc 34 g/dl (31-36); Mean Corpuscular Hemoglobin 29 pg (27-31); Mean Corpuscular Volume 87 fL (80-94); Mean Platelet Volume 8.2 um3 (7.4-10.4); Nucleated Red Blood Cells % 0; Platelet Count 253 10^3/ul (150-450); Red Cell Distribution Width 15 % (10.5-15); White Blood Count 9.1 10^3/ul (3.5-10.8)
[2018-02-10 18:51] LABS: EGFR Non-African American 59.3 (>60)
[2018-02-10] MEDS ORDERED: Piperacillin/Tazobac ADVAN(*) 3.375 GM in NS 0.9% 100 ML* 100 ML IVPB ONE (18:57)
--- NOTE | 2018-02-10 19:01 | ED ---
Lower Extremity - HPI Summary HPI Summary: This patient is a 72 year [facility] M [facility] with a chief complaint of left foot infection for over a month. Pt endorses this infection is recurrent, and sx are at their worst today, endorsing color changes , erythema, swelling. He denies groin, leg pain in other areas besides the left foot. Pt states he was recently admitted for 3 days, and was given IV abx for sx. PMHx triple CABG 11/12/17, removed veins from the now infected leg. 3-4 weeks s/p surgery infection developed. Pt endorses his last abx dose was this AM. Denies groin, other leg pain besides on foot. - History of Current Complaint Chief Complaint: EDExtremityLower Stated Complaint: DIABETIC/BLACK TOE Time Seen by Provider: 02/10/18 18:30 Hx Obtained From: Patient Onset of Pain: Prior to Arrival Onset/Duration: Worse Since - this morning Severity Initially: Mild Severity Currently: Mild Pain Intensity: 2 Pain Scale Used: 0-10 Numeric Timing: Constant Location: Is Discrete @ - top of left foot just medial to middle toe. Associated Signs And Symptoms: Positive: Swelling, Redness. Negative: Fever, Knee Pain Aggravating Factor(s): Ambulation, Weight Bearing, Other - TTP - Allergies/Home Medications Allergies/Adverse Reactions: Allergies Allergy/AdvReac Type Severity Reaction Status Date / Time No Known Allergies Allergy Verified 02/10/18 14:26 Home Medications: Home Medications Acetaminop/Codeine 30 MG TAB* [Tylenol/Codeine 30 MG TAB*] 1 - 2 tab PO Q6H PRN 02/10/18 [History Confirmed 02/10/18] Acetaminophen TAB* [Tylenol TAB*] 325 mg PO Q6H PRN 02/10/18 [History Confirmed 02/10/18] Aspirin EC TAB* [Ecotrin EC Low Dose 81 MG*] 81 mg PO DAILY 02/10/18 [History Confirmed 02/10/18] Ciprofloxacin TAB* [Cipro 500 MG TAB*] 500 mg PO BID 02/10/18 [History Confirmed 02/10/18] Clindamycin Cap(NF) [Clindamycin Cap 300 mg Cap(NF)] 300 mg PO BID 02/10/18 [ History Confirmed 02/10/18] Meloxicam(NF) [Mobic(NF)] 15 mg PO DAILY 02/10/18 [History Confirmed 02/10/18] PMH/Surg Hx/FS Hx/Imm Hx Endocrine/Hematology History: Reports: Hx Diabetes Denies: Hx Thyroid Disease Cardiovascular History: Reports: Hx Hypertension Denies: Hx Pacemaker/ICD Respiratory History: Denies: Hx Asthma, Hx Chronic Obstructive Pulmonary Disease (COPD) GI History: Denies: Hx Ulcer Sensory History: Reports: Hx Contacts or Glasses, Hx Hearing Aid - DOESN'T WEAR Opthamlomology History: Reports: Hx Contacts or Glasses Psychiatric History: Denies: Hx Panic Disorder - Surgical History Surgery Procedure, Year, and Place: Knee replacement right knee. right shoulder replacement. fingers left hand repair. cardiac stents - 2008. cardiac bypass 11/12/17. CATARACTS. Lt HAND - 2 & 3RD FINGERS REATTACHED Infectious Disease History: No Infectious Disease History: Denies: Hx Hepatitis, Hx Human Immunodeficiency Virus (HIV), History Other Infectious Disease, Traveled Outside the [place] in Last 30 Days - Family History Known Family History: Positive: Cardiac Disease, Hypertension - Social History Alcohol Use: None Substance Use Type: Reports: None Smoking Status (MU): Former Smoker Type: Cigarettes Review of Systems Negative: Fever Negative: Abdominal Pain Positive: Myalgia - left foot, Edema Positive: Other - erythema, swelling, purulence, pain distal LLE All Other Systems Reviewed And Are Negative: Yes Physical Exam - Summary Physical Exam Summary: Appearance: Well appearing, no pain distress Skin: warm, dry, reflects adequate perfusion, swelling redness of left foot, fluctuation/tenderness present on dorsal aspect of middle toe Head/face: normal Eyes: EOMI, SHARMIN ENT: normal Neck: supple, non-tender Respiratory: CTA, breath sounds present Cardiovascular: RRR, pulses symmetrical Abdomen: non-tender, soft Bowel: present Musculoskeletal: normal, strength/ROM intact Neuro: normal, sensory motor intact, A&Ox3 Triage Information Reviewed: Yes Vital Signs On Initial Exam: Initial Vitals Temp Pulse Resp BP Pulse Ox 97.3 F 70 17 152/73 97 02/10/18 14:23 02/10/18 14:23 02/10/18 14:23 02/10/18 14:23 02/10/18 14:23 Vital Signs Reviewed: Yes Diagnostics - Vital Signs Vital Signs Temp Pulse Resp BP Pulse Ox 02/10/18 16:17 81 16 128/77 02/10/18 14:23 97.3 F 70 17 152/73 97 - Laboratory Lab Results: Lab Results 02/10/18 02/10/18 02/10/18 Range/Units 18:24 18:24 18:24 WBC 9.1 (3.5-10.8) 10^3/ul RBC 4.20 (4.00-5.40) 10^6/ul Hgb 12.3 L (14.0-18.0) g/dl Hct 37 L (42-52) % MCV 87 (80-94) fL MCH 29 (27-31) pg MCHC 34 (31-36) g/dl RDW 15 (10.5-15) % Plt Count 253 (150-450) 10^3/ul MPV 8.2 (7.4-10.4) um3 Neut % (Auto) 79.0 (38-83) % Lymph % (Auto) 13.1 L (25-47) % Cannon % (Auto) 6.2 (0-7) % Eos % (Auto) 1.3 (0-6) % Baso % (Auto) 0.4 (0-2) % Absolute Neuts (auto) 7.2 (1.5-7.7) 10^3/ul Absolute Lymphs (auto) 1.2 (1.0-4.8) 10^3/ul Absolute Monos (auto) 0.6 (0-0.8) 10^3/ul Absolute Eos (auto) 0.1 (0-0.6) 10^3/ul Absolute Basos (auto) 0 (0-0.2) 10^3/ul Absolute Nucleated RBC 0 10^3/ul Nucleated RBC % 0 Sodium 136 (135-145) mmol/L Potassium 4.3 (3.5-5.0) mmol/L Chloride 98 L (101-111) mmol/L Carbon Dioxide 30 (22-32) mmol/L Anion Gap 8 (2-11) mmol/L BUN 25 H (6-24) mg/dL Creatinine 1.20 H (0.67-1.17) mg/dL Est GFR ( Amer) 71.8 (>60) Est GFR (Non-Af Amer) 59.3 (>60) BUN/Creatinine Ratio 20.8 H (8-20) Glucose 321 H (70-100) mg/dL Lactic Acid 1.2 (0.5-2.0) mmol/L Calcium 9.6 (8.6-10.3) mg/dL Total Bilirubin 0.40 (0.2-1.0) mg/dL AST 12 L (13-39) U/L ALT 11 (7-52) U/L Alkaline Phosphatase 83 (34-104) U/L C-Reactive Protein 68.44 H (<8.01) mg/L Total Protein 7.4 (6.4-8.9) g/dL Albumin 4.1 (3.2-5.2) g/dL Globulin 3.3 (2-4) g/dL Albumin/Globulin Ratio 1.2 (1-3) Result Diagrams: 02/10/18 18:24 02/10/18 18:24 Lab Statement: Any lab studies that have been ordered have been reviewed, and results considered in the medical decision making process. Lower Extremity Course/Dx - Course Course Of Treatment: A 72-year-old M presents to the ED with a CC of LLE infection since 3-4 weeks s/p CABG on 11/12. (+) erythema, swelling, pain, purulence. (-) groin, leg pain. taking abx, last dose this AM, was recently admitted for 3 days for same infection, received IV Abx. In the ED course, pt was given piperacillin/tazobactam. - Diagnoses Differential Diagnosis/HQI/PQRI: Positive: Cellulitis, Infection, Sprain Provider Diagnoses: Cellulitis of left foot, Diabetes, Abscess of left foot - Physician Notifications Discussed Care Of Patient With: Abril Moreno Time Discussed With Above Provider: 19:10 Instructed by Provider To: Other - accepted admission Discharge - Sign-Out/Discharge Documenting (check all that apply): Patient Departure - admit - Discharge Plan Condition: Fair Disposition: ADMITTED TO [facility] Referrals: Priya Brooks MD [Primary Care Provider] - - Billing Disposition and Condition Condition: FAIR Disposition: Admitted to [facility]
[2018-02-10] MEDS ORDERED: Al Hydrox/Mg Hydrox/Simet LIQ* 30 ML UDC PO PRN (20:57)
[2018-02-10] MEDS ORDERED: Dextrose 50% Syringe 50 ML* 25 GM/50 ML SYRINGE IV PUSH PRN (21:01)
[2018-02-10] MEDS ORDERED: Vancomycin per Pharmacy* NOTE FOLLOW UP SCH (22:00)
[2018-02-10] MEDS ORDERED: Vancomycin(*) 2,000 MG in NS 0.9% 500 ML* 500 ML IVPB ONE (23:00)
[2018-02-10] MEDS: Atorvastatin* 80 MG TAB PO SCH (23:27)
[2018-02-10] MEDS: Insulin GLARGINE(*) 1 UNITS UNIT SUBCUT SCH (23:30)
[2018-02-10] MEDS: Heparin VIAL(*) 5000 UNITS/ML VIAL (FIVE THOUSAND) SUBCUT SCH (23:31)
[2018-02-11] MEDS: Acetaminophen TAB* 325 MG PO PRN ×4 (00:12→22:51)
[2018-02-11] MEDS: Cefepime 2 GM in Dextrose(*) 2 GM/50 ML BAG IV SCH ×3 (00:15→22:57)
[2018-02-11] MEDS: metroNIDAZOLE IV 500 MG/100ML* 500 MG/100 ML BAG IVPB SCH ×3 (01:01→23:43)
--- NOTE | 2018-02-11 03:59 | HP ---
CC: Dr. Brooks * HISTORY AND PHYSICAL: DATE OF ADMISSION: 02/10/18 PROVIDER: Leta Hickman NP PRIMARY CARE PROVIDER: Dr. Priya Brooks. ATTENDING PHYSICIAN WHILE IN THE HOSPITAL: Dr. Triny Regan * (dictated by Leta Hickman NP). CHIEF COMPLAINT: Left foot pain, redness, and swelling x1 month. HISTORY OF PRESENT ILLNESS: Mr. El is a 72-year-old male who carries a past medical history significant for hypertension, diabetes, coronary artery disease , hyperlipidemia, who presented to the emergency room after developing increased left foot pain, redness, and swelling. The patient reports that the end of October, beginning of November, he developed an infection in his left foot with redness and swelling. He subsequently received antibiotics and was admitted to the hospital for 3 days, the end of November, which was 12/18/17. At that time, he also received IV antibiotics for his cellulitis. The patient states he went to see his bay stocker yesterday and they did a scrapping in between his third and fourth toe. He states when he awoke his morning, there was purple discoloration to the dorsal aspect of his third toe and increased redness and swelling to his left foot along with mild redness to the left lower leg with severe pain. Due to the concern of these symptoms, the patient attempted to call his bay stocker for further management but was unable to reach him. After his office visit on thursday, he was started on antibiotics, clindamycin and Cipro. The patient reports he also had an MRI done yesterday that was ordered by his bay stocker given his history of diabetes and unhealing cellulitis with drainage of the left foot. He presented to the emergency room for further evaluation. In the emergency room, he had routine lab work drawn. He was afebrile. He denies any fever or chills. Denies any nausea, vomiting, or diarrhea. Denies any abdominal pain. Denies any cough, congestion, or shortness of breath. Denies any hemoptysis. He denies any calf tenderness. Given the worsening symptoms of redness and swelling to his left lower leg, we were asked to see and evaluate him for admission. PAST MEDICAL HISTORY: Significant for: 1. Hypertension. 2. Diabetes. 3. Coronary artery disease. 4. Hyperlipidemia. 5. Chronic kidney disease. PAST SURGICAL HISTORY: 1. Bilateral cataracts. 2. Coronary artery bypass graft on 11/12/17 of 4 vessels. 3. Status post right total knee arthroplasty. 4. Right total shoulder replacement. 5. Status post repair of left hand fingers that were amputated. 6. Status post cardiac catheterization with 3 stents placed in 2008. HOME MEDICATIONS: Include: 1. Metformin 1000 mg p.o. daily. 2. Tresiba insulin 45 units subcu daily. 3. Insulin NPH 0 to 20 units subcu 3 times daily with meals. 4. Lisinopril 30 mg p.o. daily. 5. Hydrochlorothiazide 25 mg p.o. daily. 6. Lopid 300 mg orally twice daily. 7. Atorvastatin 80 mg p.o. daily. 8. Potassium 10 mEq orally daily. 9. Torsemide 20 mEq orally daily. 10. Niacin ER 500 mg orally every evening. 11. Metoprolol succinate 25 mg oral daily. He started clindamycin 300 mg p.o. b.i.d. on 02/09/18 and ciprofloxacin 500 mg p.o. b.i.d. on 02/09/18. ALLERGIES: He had no known drug allergies. FAMILY HISTORY: Father at age 55 from an [place]. He has 2 brothers with a history of diabetes and a twin brother, who of renal carcinoma in his 50s. SOCIAL HISTORY: He quit smoking approximately 30 years ago. Prior to that, he had a long 0-thca-v-day smoking history. He denies any alcohol or recreational drug use. Surrogate decision maker in the event he is unable to make his own decisions is his , Juliette El. He is a full code. REVIEW OF SYSTEMS: He denies any fever or chills. Denies any loss of appetite. Denies any chest pain or edema. Denies any cough, congestion, shortness of breath, or hemoptysis. Denies any nausea, vomiting, diarrhea. Denies any abdominal pain. Denies any gross, hematuria, dysuria. Denies any focal weakness or sensory loss. Denies any visual complaints. Denies any dysphagia. Denies any arthralgias or myalgias. Denies any rashes or lesions. Denies any psychosis. He does complain of left foot shooting, sharp, throbbing pain. Review of 14 systems was completed and all others were negative. PHYSICAL EXAMINATION GENERAL: At this time, Mr. El is a 72-year-old pleasant male, sitting on the stretcher in the emergency room. He does not appear to be in any acute distress. VITAL SIGNS: Blood pressure 139/62, heart rate is 67, O2 saturation 95%, temperature was 98.1. HEENT: Head is atraumatic, normocephalic. Pupils are equal and reactive to light. Extraocular eye movements are intact. RESPIRATORY: Lung sounds are clear to auscultation bilaterally. There is no accessory muscle use. There are no wheezes, rales, or rhonchi. ABDOMEN: Soft and nontender. Bowel sounds are present x4. EXTREMITIES: There is edema to the left lower extremity with erythema to the medial aspect of the left lower leg. There is erythema noted to the dorsal aspect of the left foot and all 5 toes with purple discoloration noted to the third toe. There is a small amount of serous drainage noted. The skin is warm to touch. Pedal pulses are +2 bilaterally. MUSCULOSKELETAL: There is no clubbing or cyanosis. The patient exhibits good strength in all extremities. NEUROLOGIC: The patient is alert and oriented x3. There is no focal weakness or gross neuro deficits noted. SKIN: There is erythema noted to the left medial aspect of the left lower leg and dorsal aspect of the left foot as well as erythema noted to all 5 toes. There is purple discoloration with white discoloration noted to the third toe and extending into the dorsal aspect of the left foot. DIAGNOSTIC STUDIES AND LABORATORY DATA: WBCs were 9.1, RBC is 4.20, hemoglobin is 12.3, hematocrit was 37, platelet count was 253, ESR was 83. Sodium 136, potassium 4.3, chloride was 98, BUN was 25, creatinine 1.0, glucose 321, lactic acid was 1.2, calcium 9.6. Total bilirubin was 0.40, AST 12. C- reactive protein was 68.44. He had an MRI of the lower extremity on 02/09/18 revealed just impression: 1. There is constellation of findings that would be consistent with early Charcot arthropathy in the correct clinical context. 2. Large sclerotic lesion at the dome of the talus most consistent with chronic osteochondral lesion or bone infarct. 3. Diffuse nonspecific superficial and deep tissue edema. No loculated fluid collection is evident. ASSESSMENT AND PLAN: Mr. El is a 72-year-old male who presented to the emergency room with increasing pain, redness and swelling to his left lower extremity with drainage noted and discoloration to his toe. We were asked to see and evaluate him due to progressively worsening cellulitis to the left foot and diabetic infection. He will be admitted inpatient for: 1. Cellulitis: The patient had progressively worsening cellulitis since yesterday. The patient was recently seen and evaluated by his bay stocker yesterday and developed increased pain and discoloration noted at the base of the third toe and the third toe. Due to these concerns, the patient presented for further evaluation. His white count is within normal limits at 9.1. We will repeat lab work in the a.m. I will consult Dr. Yanes from Infectious Disease for further management of his infection and recommendations. We will place him on vancomycin, Flagyl, and cefepime antibiotics. We will also get venous Doppler of the left lower extremity to rule out any deep venous thrombosis. I will also get an ÁNGEL to assess circulation as the patient may have a bone infarct, which may require revascularization of the lower extremity. The patient is aware and he was told by his bay stocker that he has lower extremity circulation insufficiencies. 2. Diabetes: We will place him on lispro sliding scale with coverage a.c. He will be placed on Lantus 45 units subcu daily. He will have fingersticks a.c. and h.s. I will obtain an A1c in the a.m. 3. Coronary artery disease: He will continue on the aspirin, atorvastatin, hydrochlorothiazide, lisinopril, metoprolol, niacin. 4. Hypertension: He will continue his lisinopril, metoprolol, and hydrochlorothiazide. 5. Hyperlipidemia: He will continue his atorvastatin 80 mg p.o. daily. 5. DVT prophylaxis: He will be placed on heparin subcu 5000 units. 6. Diet: He will be placed on a heart healthy diet, decaf okay. 7. Code status: He is a full code. 8. Disposition: He will be placed inpatient. TIME SPENT: Time spent on this admission was 60 minutes, greater than half of that time was spent with the patient and his discussing his history of present illness and events leading to his hospitalization on arrival today, the other half of the time was spent performing my physical exam and reviewing my plan of care and implementing my plan of care. I have discussed this with my attending, Dr. Triny Regan, she is in agreement with my plan. LETA HICKMAN, APPRENTICE STYLIST [id number]/[facility] #: [id number] BHARATI
[2018-02-11] MEDS: Heparin VIAL(*) 5000 UNITS/ML VIAL (FIVE THOUSAND) SUBCUT SCH ×3 (05:43→21:32)
[2018-02-11 07:20] LABS: ABS Basophils 0 10^3/ul (0-0.2); ABS Eosinophils 0.2 10^3/ul (0-0.6); ABS Lymphocytes 1.3 10^3/ul (1.0-4.8); ABS Monocytes 0.7 10^3/ul (0-0.8); ABS Neutrophils 5.8 10^3/ul (1.5-7.7); ABS Nucleated RBC 0 10^3/ul; Eosinophil % 2.6 % (0-6); Hematocrit 32 % (42-52); Hemoglobin 11.1 g/dl (14.0-18.0); Lymphocyte % 15.7 % (25-47); Mean Corpuscular HGB Conc 35 g/dl (31-36); Mean Corpuscular Hemoglobin 30 pg (27-31); Mean Corpuscular Volume 86 fL (80-94); Mean Platelet Volume 8.4 um3 (7.4-10.4); Nucleated Red Blood Cells % 0; Platelet Count 210 10^3/ul (150-450); Red Blood Count 3.75 10^6/ul (4.00-5.40); Red Cell Distribution Width 15 % (10.5-15)
[2018-02-11 07:32] LABS: EGFR Non-African American 62.3 (>60)
[2018-02-11] MEDS: Gemfibrozil TAB* 600 MG PO SCH ×2 (09:15→21:30)
[2018-02-11] MEDS: Lisinopril TAB* 10 MG PO SCH (09:16)
[2018-02-11] MEDS: Insulin LISPRO* 1 UNITS UNIT SUBCUT SCH ×3 (09:17→18:22)
[2018-02-11] MEDS: Aspirin EC TAB* 81 MG TAB.EC PO SCH (09:17)
[2018-02-11] MEDS: Metoprolol Succinate XL TAB* 25 MG PO SCH (09:17)
[2018-02-11] MEDS: Hydrochlorothiazide TAB* 25 MG PO SCH (09:17)
--- NOTE | 2018-02-11 09:36 | RAD ---
HISTORY: cellulitis COMPARISONS: December 15, 2017 TECHNIQUE: Multiple transverse and longitudinal ultrasound images were obtained of the left lower extremity from the level of the common femoral vein inferiorly through to the infrapopliteal veins using grayscale, color Doppler, and spectral Doppler imaging with and without compression and with augmentation. Comparison images were obtained of the contralateral common femoral vein. FINDINGS: This study is technically limited secondary to soft tissue edema. VEINS: There is limited evaluation of the peroneal vein secondary to soft tissue edema. The remainder venous system of the left lower extremity is compressible throughout its course, with normal flow on color Doppler imaging and normal response to augmentation on spectral Doppler imaging. SOFT TISSUES: There is subcutaneous edema. OTHER FINDINGS: None. IMPRESSION: LIMITED EVALUATION OF THE CALF SECONDARY TO SOFT TISSUE EDEMA. NO VISUALIZED LEFT LOWER EXTREMITY DEEP VEIN THROMBOSIS
[2018-02-11] MEDS: Vancomycin(*) 1,000 MG in NS 0.9% 250 ML* 250 ML IVPB SCH ×2 (10:10→18:23)
--- NOTE | 2018-02-11 12:51 | CONSULT ---
Consult Consult: I saw and evaluated Rickie for his left third toe. Please see Blanca Celestin's for consultation note for full history and physical. In brief, he has had a left toe infection since what sounds to be November 2017. This has involved cellulitis and a wound in the web space. Since being admitted, the cellulitis has improved on antibiotics. The toe is still quite swollen and erythematous. There is a blanched area on the dorsum of the toe base. His pedal pulses are not palpable. I recommend that we obtain ABIs. He had a recent MRI, but this did not involve the toes. Therefore, I think we should get a new MRI that does include the toes, to assess for osteomyelitis. In the meantime, continue with wound care and dressing changes. Jesu Fraire MD
--- NOTE | 2018-02-11 17:06 | RAD ---
INDICATION: Left foot wound COMPARISON: None. TECHNIQUE: Ankle-brachial indices and Doppler tracings were obtained of the lower extremities bilaterally. Volume pulse recordings were acquired at the bilateral ankles. REPORT: Ankle-brachial indices: Right: Value (SBP) Index Brachial: 164 Posterior tibialis: Noncompressible Dorsalis pedis: Noncompressible Digit: 56 0.33 Left: Value (SBP) Index Brachial: 172 Posterior tibialis: Noncompressible Dorsalis pedis: Noncompressible Digit: 47 0.27 Doppler waveforms (acquired at rest): In the interrogated lower extremity arteries, Doppler waveforms are monophasic and the bilateral lower extremities with notably reduced amplitude at the right posterior tibial artery. Volume pulse recordings (acquired at rest): Volume pulse recordings measures 17 mm on the right and 35 mm on the left, a significant discrepancy indicating relatively decreased flow in the right ankle relative to the left. IMPRESSION: 1. Noncompressibility of the pedal arteries is consistent with advanced calcified atherosclerosis. 2. Values measured at the bilateral digits are consistent with rest pain. 3. The arterial waveforms measured at the bilateral feet and ankles are greatly attenuated and arranged indicating arterial insufficiency. Recommend further characterization of the left lower extremity arteries with arterial duplex. Depending on the degree of severity catheter arteriography is likely indicated.
--- NOTE | 2018-02-11 17:08 | RAD ---
Indication: LEFT foot infection. LEFT third toe swelling and black and blue. Generalized swelling of the toes. Comparison: December 15, 2017 radiographs. February 09, 2018 MRI with incomplete inclusion of the toes. Technique: Malesbangeta 1.5 Radha [id number] with GEM suite. Noncontrast MRI LEFT foot from the level of the transverse tarsal joint through the toes. Report: Mild bone marrow edema at the base through distal diaphysis of the third proximal phalanx. Negative for corresponding loss of normal T1 marrow hyperintensity. Negative for fracture or malalignment. Diffuse superficial and deep soft tissue edema without evidence for a loculated soft tissue plane abscess collection. Soft tissue edema is most prominent at the dorsum of the foot and second toe. IMPRESSION: #. Diffuse superficial and deep soft tissue edema without evidence for a loculated soft tissue plane abscess collection. Soft tissue edema is most prominent at the dorsum of the foot and second toe. #. No evidence for osteomyelitis of the second toe. #. Nonspecific mild bone marrow edema at the third proximal phalanx without compelling loss of normal T1 marrow hyperintensity. The differential primarily includes reactive bone marrow edema versus early osteomyelitis.
--- NOTE | 2018-02-11 18:15 | CONS ---
CONSULTATION REPORT: DATE OF CONSULT: 02/10/18 ATTENDING PHYSICIAN: Dr. Jesu Fraire. PRIMARY CARE PROVIDER: Dr. Priya Brooks. CHIEF COMPLAINT: Left foot pain, redness, and swelling. HISTORY OF PRESENT ILLNESS: Mr. El is a 72-year-old male who has a past medical history of diabetes, coronary artery disease, hyperlipidemia, hypertension. He presented to the emergency room due to left foot pain, redness , and swelling, which has worsened over the past 2 days. The patient has had infection of the left foot since November of 2017. He has since been treated with both IV and p.o. antibiotics with the hospital admission for 3 days on . He went to his land surveying manager on 02/09/18, Dr. Alberto Kilgore, due to increased pain and redness. His land surveying manager did probe the lesion between his third and fourth toes with the patient stating that the lesion was not deep and did not go all the way down to the bone. The patient states that when he awoke on the morning of 02/10/18, he was having increased discoloration of the left foot with purple discoloration of the third toe as well as a white area below the third toe. An MRI was done yesterday that would unfortunately did not show the toes. It did reveal early Charcot arthropathy, a large sclerotic lesion at the dome of the talus, most consistent with chronic osteochondral lesion or bone infarct and diffuse nonspecific superficial and deep soft tissue edema. There was no loculated fluid collection evident. The patient denies any fever or chills. He does have left foot pain today. PAST MEDICAL HISTORY: Hypertension, diabetes, coronary artery disease, hyperlipidemia, chronic kidney disease. PAST SURGICAL HISTORY: Includes: 1. Bilateral cataracts. 2. Coronary artery bypass graft on 11/12/17. 3. The patient is status post right total knee arthroplasty. 4. Right total shoulder replacement. 5. Status post repair of left fingers. 6. Status post cardiac cath with 3 stents placed in 2008. MEDICATIONS: As in the patient's chart. ALLERGIES: No known drug allergies. FAMILY HISTORY: Father with DC, age 55. Two brothers with diabetes. SOCIAL HISTORY: The patient is a former smoker, quitting 30 years ago. No alcohol or drug use. His is his surrogate decision maker, Juliette El. ROS: General: Denies fever, chills, generalized weakness, recent illness HEENT: No headache or change in vision Cardiac: Denies chest pain or irregular beats. Denies history of heart attack Respiratory: Denies shortness of breath or cough. Denies history of asthma or COPD GI: Denies abdominal pain, nausea, vomiting, diarrhea Lymph: No known lymphadenopathy MSK: left foot erythematous, history of infection of 3rd digit Neuro: Denies tingling or numbness of extremities Skin: left foot erythematous Hematology: Denies history of blood clot. PHYSICAL EXAM: The patient is well appearing, he is sitting in his hospital bed comfortable. He is in no acute distress. HEENT: Normocephalic, atraumatic. Pupils EOMI. Respiratory: Normal rate and effort of breathing. Musculoskeletal: The patient has good movement of his bilateral ankles and toes , though on the bilateral lower extremity, it is very difficult to feel pulses , DP or PT. LLE: He has erythema mid foot, most prominent on the third digit, which is purple and discoloration. There is a blanched area just proximal to the third digit. In between the web space of the third and fourth toe, there is a 0.5 cm linear opening. There is no foul odor and there is no discharge from this lesion. The patient's sensation is intact to light touch throughout the left foot. ASSESSMENT: Cellulitis, likely osteomyelitis of the left third toe. PLAN: The patient needs an MRI showing toes of his left foot, ABIs are ordered , the MRI is ordered as well. Keep the foot wrapped with gauze. The patient will likely need a vascular consult once the ABIs are back. LEÓN MA [id number]/[facility] #: [id number] BHARATI
[2018-02-11] MEDS: Niacin ER TAB* 500 MG PO SCH (18:21)
--- NOTE | 2018-02-11 19:47 | PN ---
Subjective Date of Service: 02/11/18 Interval History: No new complaints overnight. Continue to c/o left foot pain, but states that it is improved redness improving to left lower leg. Denies chest pain, abd pain, n/v/d, or shortness of breath. Resting in bed, no acute distress. Family History: Unchanged from Admission Social History: Unchanged from Admission Past Medical History: Unchanged from Admission Objective Active Medications: Acetaminophen (Tylenol Tab*) 650 mg PO Q4H PRN PRN Reason: FEVER/PAIN Last Admin: 02/11/18 18:21 Dose: 650 mg Al Hydrox/Mg Hydrox/Simethicone (Maalox Plus*) 30 ml PO Q6H PRN PRN Reason: INDIGESTION Aspirin (Aspirin Ec Tab*) 81 mg PO DAILY [facility] Last Admin: 02/11/18 09:17 Dose: 81 mg Atorvastatin Calcium (Lipitor*) 80 mg PO 2100 [facility] Last Admin: 02/10/18 23:27 Dose: 80 mg Dextrose (D50w Syringe 50 Ml*) 12.5 gm IV PUSH .FOR FS < 60 - SS PRN PRN Reason: FS < 60 Gemfibrozil (Lopid Tab*) 300 mg PO BID [facility] Last Admin: 02/11/18 09:15 Dose: 300 mg Heparin Sodium (Porcine) (Heparin Vial(*)) 5,000 units SUBCUT Q8HR [facility] Last Admin: 02/11/18 13:09 Dose: 5,000 units Hydrochlorothiazide (Hydrodiuril Tab*) 25 mg PO DAILY [facility] Last Admin: 02/11/18 09:17 Dose: 25 mg Cefepime HCl (Maxipime 2 Gm In Dextrose Duplex (*)) 2 gm in 50 mls @ 100 mls/ hr IV Q12H [facility] Last Admin: 02/11/18 13:08 Dose: 100 mls/hr Metronidazole/Sodium Chloride (Flagyl 500 Mg Ivpb*) 500 mg in 100 mls @ 100 mls /hr IVPB Q12H [facility] Last Admin: 02/11/18 13:08 Dose: 100 mls/hr Vancomycin HCl 1,000 mg/ (Sodium Chloride) 250 mls @ 166.667 mls/hr IVPB Q8H [facility] Last Admin: 02/11/18 18:23 Dose: 166.667 mls/hr Insulin Glargine (Lantus(*)) 45 units SUBCUT Q24H [facility] Last Admin: 02/10/18 23:30 Dose: 45 units Insulin Human Lispro (Humalog*) 0 units SUBCUT AC [facility]; Protocol Last Admin: 02/11/18 18:22 Dose: 3 unit Lisinopril (Prinivil Tab*) 30 mg PO DAILY [facility] Last Admin: 02/11/18 09:16 Dose: 30 mg Metoprolol Succinate (Toprol Xl Tab*) 25 mg PO DAILY [facility] Last Admin: 02/11/18 09:17 Dose: 25 mg Niacin (Niaspan Er Tab*) 500 mg PO QPM [facility] Last Admin: 02/11/18 18:21 Dose: 500 mg Pharmacy Consult (Vancomycin Per Pharmacy*) 1 note FOLLOW UP .VANC PER PHARMACY [facility] Pharmacy Profile Note (Vancomycin Trough Check) 1 note FOLLOW UP 1000 ONE Stop: 02/12/18 10:01 Vital Signs - 8 hr 02/11/18 15:17 Temperature 98.7 F Pulse Rate 58 Respiratory 18 Rate Blood Pressure 148/67 (mmHg) O2 Sat by Pulse 99 Oximetry Oxygen Devices in Use Now: None Appearance: appears comfortable resting in bed. no acute distress Eyes: No Scleral Icterus Ears/Nose/Mouth/Throat: Clear Oropharnyx, Mucous Membranes Moist Neck: NL Appearance and Movements; NL JVP, Trachea Midline Respiratory: Symmetrical Chest Expansion and Respiratory Effort, Clear to Auscultation Cardiovascular: NL Sounds; No Murmurs; No JVD, - Abdominal: NL Sounds; No Tenderness; No Distention Extremities: No Clubbing, Cyanosis, - - swelling noted to left lower leg. Skin: - - redness noted to left lower leg, and left foot. Left 3 rd toe with purple discoloration. Neurological: Alert and Oriented x 3 Nutrition: Taking PO's Result Diagrams: 02/11/18 06:46 02/11/18 06:46 Additional Lab and Data: Lab Results 02/10/18 02/10/18 02/10/18 Range/Units 18:24 18:24 18:24 WBC 9.1 (3.5-10.8) 10^3/ul RBC 4.20 (4.00-5.40) 10^6/ul Hgb 12.3 L (14.0-18.0) g/dl Hct 37 L (42-52) % MCV 87 (80-94) fL MCH 29 (27-31) pg MCHC 34 (31-36) g/dl RDW 15 (10.5-15) % Plt Count 253 (150-450) 10^3/ul MPV 8.2 (7.4-10.4) um3 Neut % (Auto) 79.0 (38-83) % Lymph % (Auto) 13.1 L (25-47) % [place] % (Auto) 6.2 (0-7) % Eos % (Auto) 1.3 (0-6) % Baso % (Auto) 0.4 (0-2) % Absolute Neuts (auto) 7.2 (1.5-7.7) 10^3/ul Absolute Lymphs (auto) 1.2 (1.0-4.8) 10^3/ul Absolute Monos (auto) 0.6 (0-0.8) 10^3/ul Absolute Eos (auto) 0.1 (0-0.6) 10^3/ul Absolute Basos (auto) 0 (0-0.2) 10^3/ul Absolute Nucleated RBC 0 10^3/ul Nucleated RBC % 0 Sodium 136 (135-145) mmol/L Potassium 4.3 (3.5-5.0) mmol/L Chloride 98 L (101-111) mmol/L Carbon Dioxide 30 (22-32) mmol/L Anion Gap 8 (2-11) mmol/L BUN 25 H (6-24) mg/dL Creatinine 1.20 H (0.67-1.17) mg/dL Est GFR ( Amer) 71.8 (>60) Est GFR (Non-Af Amer) 59.3 (>60) BUN/Creatinine Ratio 20.8 H (8-20) Glucose 321 H (70-100) mg/dL Lactic Acid 1.2 (0.5-2.0) mmol/L Calcium 9.6 (8.6-10.3) mg/dL Total Bilirubin 0.40 (0.2-1.0) mg/dL AST 12 L (13-39) U/L ALT 11 (7-52) U/L Alkaline Phosphatase 83 (34-104) U/L C-Reactive Protein 68.44 H (<8.01) mg/L Total Protein 7.4 (6.4-8.9) g/dL Albumin 4.1 (3.2-5.2) g/dL Globulin 3.3 (2-4) g/dL Albumin/Globulin Ratio 1.2 (1-3) Microbiology and Other Data: Microbiology 02/10/18 18:24 Aerobic Blood Culture - Preliminary Blood Venous No Growth Day 1 Anaerobic Blood Culture - Preliminary No Growth Day 1 02/10/18 21:39 Skin and Soft Tissue MRSA/MSSA (PCR - Final Foot Left Mrsa Negative S.aureus Negative Gram Stain - Final Wound Culture - Preliminary No Growth Day 1 Assess/Plan/Problems-Billing Assessment: Mr. El is a 72-year-old male who carries a past medical history significant for hypertension, diabetes, coronary artery disease, hyperlipidemia, who presented to the emergency room after developing increased left foot pain, redness, and swelling. He was seen by podiatry on thursday and states that he scraped in between his 3rd and 4th toes. When he woke the next morning he noticed that his thrid toe had purple discoloration and there was some drainage. His planting material remover started him on cipro and clindamycin the day prior. - Patient Problems (1) Cellulitis Current Visit: No Status: Acute Code(s): L03.90 - CELLULITIS, UNSPECIFIED SNOMED Code(s): 802620643 Comment: - ortho consulted - MRI, ÁNGEL and CTA with runoff pending - Dr. Cosby consulted - afebrile, no leukocytosis - Continue Vancomycin, flagyl and cefepime - wound culture pending - recheck labs in am (2) Type 2 diabetes mellitus Current Visit: No Status: Chronic Comment: - continue lispro and lantus. (3) HTN (hypertension) Current Visit: No Status: Acute Code(s): I10 - ESSENTIAL (PRIMARY) HYPERTENSION SNOMED Code(s): 35922570 Comment: - stable - continue home meds (4) DVT prophylaxis Current Visit: No Status: Acute Code(s): KDB9890 - SNOMED Code(s): 235915283 Comment: HSQ (5) Full code status Current Visit: No Status: Acute Code(s): Z78.9 - OTHER SPECIFIED HEALTH STATUS SNOMED Code(s): 413418752 Status and Disposition: inpatient
[2018-02-11] MEDS ORDERED: Iodixanol* (CONTRAST) 320 MG/ML 100 ML SDV IV ONE (20:05)
[2018-02-11] MEDS: Atorvastatin* 80 MG TAB PO SCH (21:30)
[2018-02-11] MEDS: Insulin GLARGINE(*) 1 UNITS UNIT SUBCUT SCH (21:31)
[2018-02-12] MEDS: Vancomycin(*) 1,000 MG in NS 0.9% 250 ML* 250 ML IVPB SCH ×3 (01:28→17:51)
[2018-02-12] MEDS: Heparin VIAL(*) 5000 UNITS/ML VIAL (FIVE THOUSAND) SUBCUT SCH ×3 (05:48→20:55)
[2018-02-12 07:20] LABS: ABS Basophils 0 10^3/ul (0-0.2); ABS Eosinophils 0.2 10^3/ul (0-0.6); ABS Lymphocytes 1.1 10^3/ul (1.0-4.8); ABS Monocytes 0.6 10^3/ul (0-0.8); ABS Neutrophils 5.6 10^3/ul (1.5-7.7); ABS Nucleated RBC 0 10^3/ul; Eosinophil % 2.8 % (0-6); Hematocrit 33 % (42-52); Hemoglobin 11.5 g/dl (14.0-18.0); Lymphocyte % 15.1 % (25-47); Mean Corpuscular HGB Conc 35 g/dl (31-36); Mean Corpuscular Hemoglobin 30 pg (27-31); Mean Corpuscular Volume 86 fL (80-94); Mean Platelet Volume 8.2 um3 (7.4-10.4); Nucleated Red Blood Cells % 0; Platelet Count 219 10^3/ul (150-450); Red Blood Count 3.84 10^6/ul (4.00-5.40); Red Cell Distribution Width 15 % (10.5-15); White Blood Count 7.6 10^3/ul (3.5-10.8)
[2018-02-12 07:35] LABS: EGFR Non-African American 60.5 (>60)
[2018-02-12] MEDS: Insulin LISPRO* 1 UNITS UNIT SUBCUT SCH ×3 (08:57→17:21)
[2018-02-12] MEDS: Lisinopril TAB* 10 MG PO SCH (09:00)
[2018-02-12] MEDS: Metoprolol Succinate XL TAB* 25 MG PO SCH (09:00)
[2018-02-12] MEDS: Aspirin EC TAB* 81 MG TAB.EC PO SCH (09:01)
[2018-02-12] MEDS: Hydrochlorothiazide TAB* 25 MG PO SCH (09:01)
[2018-02-12] MEDS: Gemfibrozil TAB* 600 MG PO SCH ×2 (09:02→20:40)
--- NOTE | 2018-02-12 09:52 | PN ---
Progress Note - Progress Note Date of Service: 02/12/18 SOAP: Subjective: [Pt was seen laying in bed today. States that his pain is improved today from yesterday. States that yesterday he was up and around quite a bit and he feels tat that exacerbated the pain. He denies any nausea, vomiting, chest pain. ] Objective: [General: NAD, A&Ox3 MSK, LLE : Dressing is clean, dry and intact. Able to wiggle toes. Calf soft and non tender. +df/pf. ] Vital Signs Temp 98.4 F 02/12/18 07:32 Pulse 57 02/12/18 07:32 Resp 18 02/12/18 07:32 BP 147/58 02/12/18 07:32 Pulse Ox 97 02/12/18 07:32 Intake & Output 02/11/18 02/12/18 02/12/18 18:59 06:59 18:59 Intake Total 860 865 120 Output Total 700 Balance 860 165 120 Weight 253 lb 253 lb Intake: IV Fluids 75 NS (0.9%) 75 IVPB 790 ABX 790 Oral 860 0 120 Output: Urine 700 Other: # Bowel Movements 0 0 # Voids 2 0 Assessment: [Left 3rd toe cellulitis with erythema ] Plan: [Continue with IV Abx Dr. Cosby to consult for lack of blood flow. He has already seen pts, awaiting results of further testing. will continue to follow the pt ]
[2018-02-12] MEDS ORDERED: Vancomycin Trough Check NOTE FOLLOW UP ONE (10:00)
[2018-02-12 12:26] LABS: Urine Appearance Clear; Urine Blood Negative (Negative); Urine Color Yellow; Urine Ketones Negative (Negative); Urine Protein 2+(100 mg/dL) (Negative); Urine Red Blood Cell Absent (Absent); Urine Specific Gravity 1.023 (1.010-1.030); Urine Urobilinogen Negative (Negative); Urine White Blood Cell Absent (Absent)
[2018-02-12] MEDS: Cefepime 2 GM in Dextrose(*) 2 GM/50 ML BAG IV SCH ×2 (12:32→22:34)
--- NOTE | 2018-02-12 12:33 | RAD ---
INDICATION: Abnormal ABIs. Lower extremity cellulitis. COMPARISON: February 11, 2018 ankle-brachial index. TECHNIQUE: Multidetector CT images were obtained from the lung bases to the feet with 125 mL Visipaque 320 IV contrast. Full [id number] routine arterial phase and delayed arterial phase of the lower legs. Multiplanar reformation without and with maximum intensity projection. 3-D arterial volume rendering. REPORT: ABDOMINAL AORTA: Mild atherosclerotic plaque at the normal diameter abdominal aorta. Negative for arterial dissection. Negative for hemodynamic significant stenosis at the celiac axis, superior mesenteric artery, or dominant bilateral renal arteries. Small bilateral accessory renal arteries noted with assessment limited due to small size. Normal opacification of the inferior mesenteric artery with assessment limited due to small size. RIGHT ILIAC and LOWER EXTREMITY ARTERIES: Atherosclerotic plaque without aneurysm, dissection, or hemodynamic significant stenosis at the RIGHT common iliac artery or RIGHT internal iliac artery. Up to 40% stenosis at the distal RIGHT external iliac artery due to calcific plaque. Up to 80% short segment stenosis at the RIGHT common iliac artery primarily due to calcific plaque. Significant burden of atherosclerotic plaque at the RIGHT superficial femoral artery with up to 70% moderate length segment stenosis proximally. Up to 50% stenosis of the SFA at the adductor canal. Assessment of the popliteal artery is markedly limited due to the knee prosthesis. Short segment marked high-grade stenosis which appears secondary to noncalcified plaque at the far distal RIGHT popliteal artery at the level of the origin of the anterior tibial artery. Magnitude of arterial calcification limits assessment of the calf arteries. Suggestion of limited three-vessel runoff at the ankle. LEFT ILIAC and LOWER EXTREMITY ARTERIES: Atherosclerotic plaque without aneurysm, dissection, or hemodynamic significant stenosis at the LEFT common, internal, or external iliac arteries. Approximate 40% stenosis due to calcific plaque at the distal LEFT common femoral artery. Significant atherosclerotic plaque at the LEFT superficial femoral artery with up to 60% short segment stenosis at the mid segment. Up to 50% short segment stenosis at the distal SFA at the adductor canal. Up to 50% short segment stenosis of the infrageniculate popliteal artery. While magnitude of atherosclerotic calcification limits assessment there is suggestion of limited three-vessel runoff to the ankle. NON-VASCULAR FINDINGS: Cardiomegaly and coronary artery calcifications. Median sternotomy wires. No suspicious abnormality of the liver, gallbladder, pancreas, spleen. No suspicious finding of the alimentary tract. Normal adrenal glands. 4.1 cm exophytic cortical cyst at the lower pole the LEFT kidney with mild marginal calcification. Negative for hydronephrosis. Negative for lymphadenopathy. Negative for suspicious osseous lesions. IMPRESSION: ABDOMINAL AORTA: #. Normal diameter abdominal aorta without evidence for dissection or hemodynamic significant stenosis. RIGHT ILIAC and LOWER EXTREMITY ARTERIES: #. 80% short segment stenosis at the RIGHT common iliac artery. #. 70% stenosis at the RIGHT superficial femoral artery. #. 50% stenosis at the RIGHT SFA at the adductor canal. #. Marked high-grade stenosis at the distal RIGHT popliteal artery. #. Suggestion of limited three-vessel runoff to the RIGHT ankle. LEFT ILIAC and LOWER EXTREMITY ARTERIES: #. Up to 60% stenosis at the mid segment of the LEFT superficial femoral artery. #. Up to 50% short segment stenosis at the infrageniculate LEFT popliteal artery. #. Suggestion of limited three-vessel runoff to the LEFT ankle.
[2018-02-12] MEDS: metroNIDAZOLE IV 500 MG/100ML* 500 MG/100 ML BAG IVPB SCH ×2 (13:22→23:33)
[2018-02-12] MEDS: Acetaminophen TAB* 325 MG PO PRN (15:25)
--- NOTE | 2018-02-12 17:50 | CONSULT ---
Consult Consult: The CTA was reveiwed by me. There is in line flow from the Aorta to popliteal arteries. Infrapopliteal arteries are coarsely calcified which limits CTA evaluation. In the setting of CLI/non-healing wound(s) catheter arteriography is indicated with possible revascularization. If the patient is stable and not showing signs of sepsis this can be done at a later date as an outpatient. This was conveyed to Leta Hickman over the telephone at 1500 hours on .
[2018-02-12] MEDS: Niacin ER TAB* 500 MG PO SCH (18:01)
--- NOTE | 2018-02-12 18:30 | PN ---
Subjective Date of Service: 02/12/18 Interval History: Continue to c/o pain in left foot and left lower leg, redness and swelling are improving. continues to have discoloration to the 3rd toe. small amt of drainage noted to the dressing. C/o increased pain with movement of the 3 rd toe. Family History: Unchanged from Admission Social History: Unchanged from Admission Past Medical History: Unchanged from Admission Objective Active Medications: Acetaminophen (Tylenol Tab*) 650 mg PO Q4H PRN PRN Reason: FEVER/PAIN Last Admin: 02/12/18 15:25 Dose: 650 mg Al Hydrox/Mg Hydrox/Simethicone (Maalox Plus*) 30 ml PO Q6H PRN PRN Reason: INDIGESTION Aspirin (Aspirin Ec Tab*) 81 mg PO DAILY [facility] Last Admin: 02/12/18 09:01 Dose: 81 mg Atorvastatin Calcium (Lipitor*) 80 mg PO 2100 [facility] Last Admin: 02/11/18 21:30 Dose: 80 mg Dextrose (D50w Syringe 50 Ml*) 12.5 gm IV PUSH .FOR FS < 60 - SS PRN PRN Reason: FS < 60 Gemfibrozil (Lopid Tab*) 300 mg PO BID [facility] Last Admin: 02/12/18 09:02 Dose: 300 mg Heparin Sodium (Porcine) (Heparin Vial(*)) 5,000 units SUBCUT Q8HR [facility] Last Admin: 02/12/18 14:45 Dose: 5,000 units Hydrochlorothiazide (Hydrodiuril Tab*) 25 mg PO DAILY [facility] Last Admin: 02/12/18 09:01 Dose: 25 mg Cefepime HCl (Maxipime 2 Gm In Dextrose Duplex (*)) 2 gm in 50 mls @ 100 mls/ hr IV Q12H [facility] Last Admin: 02/12/18 12:32 Dose: 100 mls/hr Metronidazole/Sodium Chloride (Flagyl 500 Mg Ivpb*) 500 mg in 100 mls @ 100 mls /hr IVPB Q12H [facility] Last Admin: 02/12/18 13:22 Dose: 100 mls/hr Vancomycin HCl 1,000 mg/ (Sodium Chloride) 250 mls @ 166.667 mls/hr IVPB Q8H [facility] Last Admin: 02/12/18 17:51 Dose: 166.667 mls/hr Insulin Glargine (Lantus(*)) 45 units SUBCUT Q24H [facility] Last Admin: 02/11/18 21:31 Dose: 45 units Insulin Human Lispro (Humalog*) 0 units SUBCUT AC [facility]; Protocol Last Admin: 02/12/18 17:21 Dose: 6 unit Lisinopril (Prinivil Tab*) 30 mg PO DAILY [facility] Last Admin: 02/12/18 09:00 Dose: 30 mg Metoprolol Succinate (Toprol Xl Tab*) 25 mg PO DAILY [facility] Last Admin: 02/12/18 09:00 Dose: 25 mg Niacin (Niaspan Er Tab*) 500 mg PO QPM [facility] Last Admin: 02/12/18 18:01 Dose: 500 mg Pharmacy Consult (Vancomycin Per Pharmacy*) 1 note FOLLOW UP .VANC PER PHARMACY [facility] Vital Signs - 8 hr 02/12/18 02/12/18 02/12/18 11:20 16:24 16:35 Temperature 98.5 F 98.1 F 98.5 F Pulse Rate 53 59 60 Respiratory 18 24 Rate Blood Pressure 149/59 162/71 (mmHg) O2 Sat by Pulse 96 95 96 Oximetry Oxygen Devices in Use Now: None Appearance: appears comfortabel sitting in bed , no acute distress. Eyes: No Scleral Icterus Ears/Nose/Mouth/Throat: Clear Oropharnyx, Mucous Membranes Moist Neck: NL Appearance and Movements; NL JVP, Trachea Midline Respiratory: Symmetrical Chest Expansion and Respiratory Effort, Clear to Auscultation Cardiovascular: NL Sounds; No Murmurs; No JVD, No Edema Abdominal: NL Sounds; No Tenderness; No Distention Extremities: No Edema, No Clubbing, Cyanosis Skin: No Rash or Ulcers Neurological: Alert and Oriented x 3 Nutrition: Taking PO's Result Diagrams: 02/12/18 06:58 02/12/18 06:58 Additional Lab and Data: Lab Results 02/10/18 02/10/18 02/10/18 Range/Units 18:24 18:24 18:24 WBC 9.1 (3.5-10.8) 10^3/ul RBC 4.20 (4.00-5.40) 10^6/ul Hgb 12.3 L (14.0-18.0) g/dl Hct 37 L (42-52) % MCV 87 (80-94) fL MCH 29 (27-31) pg MCHC 34 (31-36) g/dl RDW 15 (10.5-15) % Plt Count 253 (150-450) 10^3/ul MPV 8.2 (7.4-10.4) um3 Neut % (Auto) 79.0 (38-83) % Lymph % (Auto) 13.1 L (25-47) % [place] % (Auto) 6.2 (0-7) % Eos % (Auto) 1.3 (0-6) % Baso % (Auto) 0.4 (0-2) % Absolute Neuts (auto) 7.2 (1.5-7.7) 10^3/ul Absolute Lymphs (auto) 1.2 (1.0-4.8) 10^3/ul Absolute Monos (auto) 0.6 (0-0.8) 10^3/ul Absolute Eos (auto) 0.1 (0-0.6) 10^3/ul Absolute Basos (auto) 0 (0-0.2) 10^3/ul Absolute Nucleated RBC 0 10^3/ul Nucleated RBC % 0 Sodium 136 (135-145) mmol/L Potassium 4.3 (3.5-5.0) mmol/L Chloride 98 L (101-111) mmol/L Carbon Dioxide 30 (22-32) mmol/L Anion Gap 8 (2-11) mmol/L BUN 25 H (6-24) mg/dL Creatinine 1.20 H (0.67-1.17) mg/dL Est GFR ( Amer) 71.8 (>60) Est GFR (Non-Af Amer) 59.3 (>60) BUN/Creatinine Ratio 20.8 H (8-20) Glucose 321 H (70-100) mg/dL Lactic Acid 1.2 (0.5-2.0) mmol/L Calcium 9.6 (8.6-10.3) mg/dL Total Bilirubin 0.40 (0.2-1.0) mg/dL AST 12 L (13-39) U/L ALT 11 (7-52) U/L Alkaline Phosphatase 83 (34-104) U/L C-Reactive Protein 68.44 H (<8.01) mg/L Total Protein 7.4 (6.4-8.9) g/dL Albumin 4.1 (3.2-5.2) g/dL Globulin 3.3 (2-4) g/dL Albumin/Globulin Ratio 1.2 (1-3) Microbiology and Other Data: Microbiology 02/10/18 18:24 Aerobic Blood Culture - Preliminary Blood Venous No Growth Day 1 Anaerobic Blood Culture - Preliminary No Growth Day 1 02/10/18 21:39 Skin and Soft Tissue MRSA/MSSA (PCR - Final Foot Left Mrsa Negative S.aureus Negative Gram Stain - Final Wound Culture - Preliminary No Growth Day 1 Assess/Plan/Problems-Billing Assessment: Mr. El is a 72-year-old male who carries a past medical history significant for hypertension, diabetes, coronary artery disease, hyperlipidemia, who presented to the emergency room after developing increased left foot pain, redness, and swelling. He was seen by podiatry on thursday and states that he scraped in between his 3rd and 4th toes. When he woke the next morning he noticed that his thrid toe had purple discoloration and there was some drainage. His personal secretary started him on cipro and clindamycin the day prior. - Patient Problems (1) Cellulitis Current Visit: No Status: Acute Code(s): L03.90 - CELLULITIS, UNSPECIFIED SNOMED Code(s): 078932147 Comment: - ortho consulted - MRI,possible early osteomylitis, - will continue antiobiotics - ÁNGEL- aterial insufficiency - Dr. Cosby consulted- recommends catheter arteriography- if the patient is not septic tis can be done as an outpatient at a later date. - afebrile, no leukocytosis - Continue Vancomycin, flagyl and cefepime - wound culture positive for MSSA - pending final - blood culture no growth 2 days - recheck labs in am (2) Type 2 diabetes mellitus Current Visit: No Status: Chronic Comment: - continue lispro and lantus. (3) HTN (hypertension) Current Visit: No Status: Acute Code(s): I10 - ESSENTIAL (PRIMARY) HYPERTENSION SNOMED Code(s): 53129024 Comment: - stable - continue home meds (4) DVT prophylaxis Current Visit: No Status: Acute Code(s): UWZ3805 - SNOMED Code(s): 563098488 Comment: HSQ (5) Full code status Current Visit: No Status: Acute Code(s): Z78.9 - OTHER SPECIFIED HEALTH STATUS SNOMED Code(s): 455103796 Status and Disposition: inpatient -
[2018-02-12] MEDS: Atorvastatin* 80 MG TAB PO SCH (20:53)
[2018-02-12] MEDS: Insulin GLARGINE(*) 1 UNITS UNIT SUBCUT SCH (21:08)
[2018-02-13] MEDS: Acetaminophen TAB* 325 MG PO PRN ×4 (00:19→21:27)
[2018-02-13] MEDS: Vancomycin(*) 1,000 MG in NS 0.9% 250 ML* 250 ML IVPB SCH ×3 (01:43→17:36)
[2018-02-13] MEDS: Heparin VIAL(*) 5000 UNITS/ML VIAL (FIVE THOUSAND) SUBCUT SCH ×3 (06:14→21:29)
[2018-02-13] MEDS: Aspirin EC TAB* 81 MG TAB.EC PO SCH (08:51)
[2018-02-13] MEDS: Hydrochlorothiazide TAB* 25 MG PO SCH (08:51)
[2018-02-13] MEDS: Metoprolol Succinate XL TAB* 25 MG PO SCH (08:51)
[2018-02-13] MEDS: Gemfibrozil TAB* 600 MG PO SCH ×2 (08:51→21:28)
[2018-02-13] MEDS: Lisinopril TAB* 10 MG PO SCH (08:51)
[2018-02-13] MEDS: Insulin LISPRO* 1 UNITS UNIT SUBCUT SCH ×3 (08:53→17:36)
--- NOTE | 2018-02-13 10:01 | PN ---
Subjective Date of Service: 02/13/18 Interval History: Continues to c/o of left foot pain, mainly in the toes. Denies chest pain or shortness of breath. Denies and pain n/v/d. continues to have redness and swelling in the left foot, improving Family History: Unchanged from Admission Social History: Unchanged from Admission Past Medical History: Unchanged from Admission Objective Active Medications: Acetaminophen (Tylenol Tab*) 650 mg PO Q4H PRN PRN Reason: FEVER/PAIN Last Admin: 02/13/18 09:16 Dose: 650 mg Al Hydrox/Mg Hydrox/Simethicone (Maalox Plus*) 30 ml PO Q6H PRN PRN Reason: INDIGESTION Aspirin (Aspirin Ec Tab*) 81 mg PO DAILY [facility] Last Admin: 02/13/18 08:51 Dose: 81 mg Atorvastatin Calcium (Lipitor*) 80 mg PO 2100 [facility] Last Admin: 02/12/18 20:53 Dose: 80 mg Dextrose (D50w Syringe 50 Ml*) 12.5 gm IV PUSH .FOR FS < 60 - SS PRN PRN Reason: FS < 60 Gemfibrozil (Lopid Tab*) 300 mg PO BID [facility] Last Admin: 02/13/18 08:51 Dose: 300 mg Heparin Sodium (Porcine) (Heparin Vial(*)) 5,000 units SUBCUT Q8HR [facility] Last Admin: 02/13/18 06:14 Dose: 5,000 units Hydrochlorothiazide (Hydrodiuril Tab*) 25 mg PO DAILY [facility] Last Admin: 02/13/18 08:51 Dose: 25 mg Cefepime HCl (Maxipime 2 Gm In Dextrose Duplex (*)) 2 gm in 50 mls @ 100 mls/ hr IV Q12H [facility] Last Admin: 02/12/18 22:34 Dose: 100 mls/hr Metronidazole/Sodium Chloride (Flagyl 500 Mg Ivpb*) 500 mg in 100 mls @ 100 mls /hr IVPB Q12H [facility] Last Admin: 02/12/18 23:33 Dose: 100 mls/hr Vancomycin HCl 1,000 mg/ (Sodium Chloride) 250 mls @ 166.667 mls/hr IVPB Q8H [facility] Last Admin: 02/13/18 09:17 Dose: 166.667 mls/hr Insulin Glargine (Lantus(*)) 48 units SUBCUT Q24H [facility] Insulin Human Lispro (Humalog*) 0 units SUBCUT AC [facility]; Protocol Last Admin: 02/13/18 08:53 Dose: 3 unit Lisinopril (Prinivil Tab*) 30 mg PO DAILY [facility] Last Admin: 02/13/18 08:51 Dose: 30 mg Metoprolol Succinate (Toprol Xl Tab*) 25 mg PO DAILY [facility] Last Admin: 02/13/18 08:51 Dose: 25 mg Niacin (Niaspan Er Tab*) 500 mg PO QPM [facility] Last Admin: 02/12/18 18:01 Dose: 500 mg Pharmacy Consult (Vancomycin Per Pharmacy*) 1 note FOLLOW UP .VANC PER PHARMACY [facility] Pharmacy Profile Note (Vancomycin Trough Check) 1 note FOLLOW UP 929 ONE Stop: 02/14/18 09:31 Vital Signs - 8 hr 02/13/18 02/13/18 02/13/18 03:22 06:43 08:00 Temperature 99.0 F 97.7 F Pulse Rate 57 54 Respiratory 18 18 Rate Blood Pressure 160/66 166/71 (mmHg) O2 Sat by Pulse 96 97 Oximetry 02/13/18 08:44 Temperature Pulse Rate 68 Respiratory Rate Blood Pressure (mmHg) O2 Sat by Pulse Oximetry Oxygen Devices in Use Now: None Appearance: Appears comfortable resting in bed, no acute distress Eyes: No Scleral Icterus Ears/Nose/Mouth/Throat: Clear Oropharnyx, Mucous Membranes Moist Neck: NL Appearance and Movements; NL JVP, Trachea Midline Respiratory: Symmetrical Chest Expansion and Respiratory Effort, Clear to Auscultation Cardiovascular: NL Sounds; No Murmurs; No JVD Abdominal: NL Sounds; No Tenderness; No Distention Extremities: No Clubbing, Cyanosis, - - Left foot with erythema, 3 rd toe with purple discoloration, scabbed discolored area noted to base of third toe. 2nd thur 5th toes with erythema. Skin: - - left foot with erythema and swelling Neurological: Alert and Oriented x 3 Nutrition: Taking PO's Result Diagrams: 02/12/18 06:58 02/12/18 06:58 Additional Lab and Data: Lab Results 02/10/18 02/10/18 02/10/18 Range/Units 18:24 18:24 18:24 WBC 9.1 (3.5-10.8) 10^3/ul RBC 4.20 (4.00-5.40) 10^6/ul Hgb 12.3 L (14.0-18.0) g/dl Hct 37 L (42-52) % MCV 87 (80-94) fL MCH 29 (27-31) pg MCHC 34 (31-36) g/dl RDW 15 (10.5-15) % Plt Count 253 (150-450) 10^3/ul MPV 8.2 (7.4-10.4) um3 Neut % (Auto) 79.0 (38-83) % Lymph % (Auto) 13.1 L (25-47) % [place] % (Auto) 6.2 (0-7) % Eos % (Auto) 1.3 (0-6) % Baso % (Auto) 0.4 (0-2) % Absolute Neuts (auto) 7.2 (1.5-7.7) 10^3/ul Absolute Lymphs (auto) 1.2 (1.0-4.8) 10^3/ul Absolute Monos (auto) 0.6 (0-0.8) 10^3/ul Absolute Eos (auto) 0.1 (0-0.6) 10^3/ul Absolute Basos (auto) 0 (0-0.2) 10^3/ul Absolute Nucleated RBC 0 10^3/ul Nucleated RBC % 0 Sodium 136 (135-145) mmol/L Potassium 4.3 (3.5-5.0) mmol/L Chloride 98 L (101-111) mmol/L Carbon Dioxide 30 (22-32) mmol/L Anion Gap 8 (2-11) mmol/L BUN 25 H (6-24) mg/dL Creatinine 1.20 H (0.67-1.17) mg/dL Est GFR ( Amer) 71.8 (>60) Est GFR (Non-Af Amer) 59.3 (>60) BUN/Creatinine Ratio 20.8 H (8-20) Glucose 321 H (70-100) mg/dL Lactic Acid 1.2 (0.5-2.0) mmol/L Calcium 9.6 (8.6-10.3) mg/dL Total Bilirubin 0.40 (0.2-1.0) mg/dL AST 12 L (13-39) U/L ALT 11 (7-52) U/L Alkaline Phosphatase 83 (34-104) U/L C-Reactive Protein 68.44 H (<8.01) mg/L Total Protein 7.4 (6.4-8.9) g/dL Albumin 4.1 (3.2-5.2) g/dL Globulin 3.3 (2-4) g/dL Albumin/Globulin Ratio 1.2 (1-3) Microbiology and Other Data: Microbiology 02/10/18 18:24 Aerobic Blood Culture - Preliminary Blood Venous No Growth Day 1 Anaerobic Blood Culture - Preliminary No Growth Day 1 02/10/18 21:39 Skin and Soft Tissue MRSA/MSSA (PCR - Final Foot Left Mrsa Negative S.aureus Negative Gram Stain - Final Wound Culture - Preliminary No Growth Day 1 Assess/Plan/Problems-Billing Assessment: Mr. El is a 72-year-old male who carries a past medical history significant for hypertension, diabetes, coronary artery disease, hyperlipidemia, who presented to the emergency room after developing increased left foot pain, redness, and swelling. He was seen by podiatry on thursday and states that he scraped in between his 3rd and 4th toes. When he woke the next morning he noticed that his thrid toe had purple discoloration and there was some drainage. His cable engineer outside plant started him on cipro and clindamycin the day prior. - Patient Problems (1) Cellulitis Current Visit: No Status: Acute Code(s): L03.90 - CELLULITIS, UNSPECIFIED SNOMED Code(s): 739095736 Comment: - ortho consulted - MRI- possible early osteomylitis, - will continue antiobiotics, foot continues to be tender to the touch and with movement. - ÁNGEL- aterial insufficiency - Dr. Cosby consulted- recommends catheter arteriography- if the patient is not septic this can be done as an outpatient at a later date. - afebrile, no leukocytosis - Continue Vancomycin, flagyl and cefepime - wound culture neg. for MRSA and MSSA - pending final - blood culture no growth (2) Type 2 diabetes mellitus Current Visit: No Status: Chronic Comment: - continue lispro and lantus - fasting blood sugars 140's 160's - will increase lantus to 48 units (3) HTN (hypertension) Current Visit: No Status: Acute Code(s): I10 - ESSENTIAL (PRIMARY) HYPERTENSION SNOMED Code(s): 77871491 Comment: - stable - continue home meds (4) DVT prophylaxis Current Visit: No Status: Acute Code(s): ZJJ5656 - SNOMED Code(s): 570725423 Comment: HSQ (5) Full code status Current Visit: No Status: Acute Code(s): Z78.9 - OTHER SPECIFIED HEALTH STATUS SNOMED Code(s): 680368422 Status and Disposition: inpatient, discharge home when medically stable -
--- NOTE | 2018-02-13 10:23 | CONSULT ---
Consult Consult: I saw and examined by Rickie this morning. The toe is feeling a little bit better and clinically is looking a little better. The swelling and erythema have improved. The blanched area has improved. There is no tracking proximally. His vascular studies did show severe stenosis and Dr. Cosby was consulted. He will need a revascularization. As for the toe, I would continue antibiotics and wound care. No plan for surgery at this time. Jesu Fraire MD
[2018-02-13] MEDS: Cefepime 2 GM in Dextrose(*) 2 GM/50 ML BAG IV SCH ×2 (11:01→22:57)
[2018-02-13] MEDS: metroNIDAZOLE IV 500 MG/100ML* 500 MG/100 ML BAG IVPB SCH (11:46)
[2018-02-13] MEDS: Niacin ER TAB* 500 MG PO SCH (17:36)
[2018-02-13] MEDS: Atorvastatin* 80 MG TAB PO SCH (21:27)
[2018-02-13] MEDS: Insulin GLARGINE(*) 1 UNITS UNIT SUBCUT SCH (21:29)
[2018-02-14] MEDS: metroNIDAZOLE IV 500 MG/100ML* 500 MG/100 ML BAG IVPB SCH ×2 (00:02→13:54)
[2018-02-14] MEDS: Acetaminophen TAB* 325 MG PO PRN ×4 (01:33→21:57)
[2018-02-14] MEDS: Melatonin 3 MG TAB PO PRN ×2 (01:38→21:57)
[2018-02-14] MEDS: Vancomycin(*) 1,000 MG in NS 0.9% 250 ML* 250 ML IVPB SCH ×2 (01:40→10:25)
[2018-02-14] MEDS: Heparin VIAL(*) 5000 UNITS/ML VIAL (FIVE THOUSAND) SUBCUT SCH ×3 (07:15→21:44)
[2018-02-14] MEDS: Insulin LISPRO* 1 UNITS UNIT SUBCUT SCH ×3 (08:15→17:34)
[2018-02-14 09:26] LABS: EGFR Non-African American 55.6 (>60)
[2018-02-14] MEDS ORDERED: Vancomycin Trough Check NOTE FOLLOW UP ONE (09:30)
[2018-02-14 09:51] LABS: Vancomycin Trough 19.4 mcg/mL
[2018-02-14] MEDS: Lisinopril TAB* 10 MG PO SCH (10:26)
[2018-02-14] MEDS: Gemfibrozil TAB* 600 MG PO SCH ×2 (10:26→21:45)
[2018-02-14] MEDS: Aspirin EC TAB* 81 MG TAB.EC PO SCH (10:27)
[2018-02-14] MEDS: Hydrochlorothiazide TAB* 25 MG PO SCH (10:27)
[2018-02-14] MEDS: Metoprolol Succinate XL TAB* 25 MG PO SCH (10:27)
--- NOTE | 2018-02-14 12:33 | PN ---
Subjective Date of Service: 02/14/18 Interval History: Patient seen and examined at bedside. Denies fever, chills, shortness of breath , chest discomfort, N/V/D. Pt states that he has some discomfort in his left foot and toes. Pt states that he doesn't want to go home until his procedure later in the week after he had an issue with getting an MRI schedule recently. Family History: Unchanged from Admission Social History: Unchanged from Admission Past Medical History: Unchanged from Admission Objective Active Medications: Acetaminophen (Tylenol Tab*) 650 mg PO Q4H PRN Reason: FEVER/PAIN Al Hydrox/Mg Hydrox/Simethicone (Maalox Plus*) 30 ml PO Q6H PRN Reason: INDIGESTION Aspirin (Aspirin Ec Tab*) 81 mg PO DAILY [facility] Atorvastatin Calcium (Lipitor*) 80 mg PO 2100 [facility] Dextrose (D50w Syringe 50 Ml*) 12.5 gm IV PUSH .FOR FS < 60 - SS PRN Reason: FS < 60 Gemfibrozil (Lopid Tab*) 300 mg PO BID [facility] Heparin Sodium (Porcine) (Heparin Vial(*)) 5,000 units SUBCUT Q8HR [facility] Hydrochlorothiazide (Hydrodiuril Tab*) 25 mg PO DAILY [facility] Cefepime HCl (Maxipime 2 Gm In Dextrose Duplex (*)) 2 gm in 50 mls @ 100 mls/ hr IV Q12H [facility] Metronidazole/Sodium Chloride (Flagyl 500 Mg Ivpb*) 500 mg in 100 mls @ 100 mls /hr IVPB Q12H [facility] Vancomycin HCl 1,000 mg/ (Sodium Chloride) 250 mls @ 166.667 mls/hr IVPB Q8H [facility] Insulin Glargine (Lantus(*)) 48 units SUBCUT Q24H [facility] Insulin Human Lispro (Humalog*) 0 units SUBCUT AC [facility]; Protocol Lisinopril (Prinivil Tab*) 30 mg PO DAILY [facility] Melatonin (Melatonin) 3 mg PO BEDTIME PRN; Protocol Reason: Sleep Metoprolol Succinate (Toprol Xl Tab*) 25 mg PO DAILY [facility] Niacin (Niaspan Er Tab*) 500 mg PO QPM [facility] Pharmacy Consult (Vancomycin Per Pharmacy*) 1 note FOLLOW UP .VANC PER PHARMACY [facility] Vital Signs - 8 hr 02/14/18 02/14/18 08:07 11:27 Temperature 98.2 F 98.0 F Pulse Rate 52 55 Respiratory 19 19 Rate Blood Pressure 135/62 146/66 (mmHg) O2 Sat by Pulse 97 98 Oximetry Oxygen Devices in Use Now: None Appearance: NAD, laying in bed Ears/Nose/Mouth/Throat: Mucous Membranes Moist Respiratory: Symmetrical Chest Expansion and Respiratory Effort, Clear to Auscultation Cardiovascular: NL Sounds; No Murmurs; No JVD, RRR Abdominal: NL Sounds; No Tenderness; No Distention Skin: - - Dry skin to top of left foot, there is some purple discolored tissue on the 3rd toe. Neurological: Alert and Oriented x 3, NL Muscle Strength and Tone Lines/Tubes/Other Access: Clean, Dry and Intact Peripheral IV - site benign Nutrition: Taking PO's Result Diagrams: 02/12/18 06:58 02/14/18 08:59 Additional Lab and Data: . Microbiology and Other Data: Microbiology 02/10/18 18:24 Aerobic Blood Culture - Preliminary Blood Venous No Growth Day 1 Anaerobic Blood Culture - Preliminary No Growth Day 1 02/10/18 21:39 Skin and Soft Tissue MRSA/MSSA (PCR - Final Foot Left Mrsa Negative S.aureus Negative Gram Stain - Final Wound Culture - Preliminary No Growth Day 1 Assess/Plan/Problems-Billing Assessment: Mr. El is a 72-year-old male who carries a past medical history significant for hypertension, diabetes, coronary artery disease, hyperlipidemia, who presented to the emergency room after developing increased left foot pain, redness, and swelling. He was seen by podiatry on thursday and states that he scraped in between his 3rd and 4th toes. When he woke the next morning he noticed that his thrid toe had purple discoloration and there was some drainage. His stonemason started him on cipro and clindamycin the day prior to admission. - Patient Problems (1) Cellulitis Code(s): L03.90 - CELLULITIS, UNSPECIFIED SNOMED Code(s): 824650150 Comment: - Afebrile and no leukocytosis - MRI shows possible early osteomylitis (suspect secondary to diabetes) - Ortho consult, input appreciated - ÁNGEL shows aterial insufficiency - Dr. Cosby consulted and recommends catheter arteriography. If the patient is not septic this can be done as an outpatient at a later date. - Wound culture negative for MRSA and MSSA - No significant growth - Blood culture no growth, day 3 - CRP and ESR elevated on admission - Continue Vancomycin, flagyl and cefepime (2) Type 2 diabetes mellitus Comment: - Glucose 110-170's - Continue lispro and lantus (3) CKD (chronic kidney disease) Code(s): N18.9 - CHRONIC KIDNEY DISEASE, UNSPECIFIED SNOMED Code(s): 607130921 Comment: - Acute AYDEN resolved with IVFs - Suspect secondary to diabetes - Now at baseline creatinine (4) HTN (hypertension) Code(s): I10 - ESSENTIAL (PRIMARY) HYPERTENSION SNOMED Code(s): 67298799 Comment: - Normotensive, SBP 130-140's - Continue HCTZ and Lisinopril (5) DVT prophylaxis Code(s): YRK8747 - SNOMED Code(s): 896467874 Comment: - SQ heparin (6) Full code status Code(s): Z78.9 - OTHER SPECIFIED HEALTH STATUS SNOMED Code(s): 426678375 Status and Disposition: Inpatient. Discharge home when medically stable
[2018-02-14] MEDS: Cefepime 2 GM in Dextrose(*) 2 GM/50 ML BAG IV SCH ×2 (12:43→23:46)
[2018-02-14] MEDS: Niacin ER TAB* 500 MG PO SCH (17:34)
[2018-02-14] MEDS: Atorvastatin* 80 MG TAB PO SCH (21:44)
[2018-02-14] MEDS: Vancomycin(*) 1,250 MG in NS 0.9% 250 ML* 250 ML IVPB SCH (21:45)
[2018-02-14] MEDS: Insulin GLARGINE(*) 1 UNITS UNIT SUBCUT SCH (21:45)
[2018-02-15] MEDS: metroNIDAZOLE IV 500 MG/100ML* 500 MG/100 ML BAG IVPB SCH ×2 (00:28→15:16)
[2018-02-15] MEDS: Heparin VIAL(*) 5000 UNITS/ML VIAL (FIVE THOUSAND) SUBCUT SCH ×3 (07:07→21:44)
[2018-02-15] MEDS: Metoprolol Succinate XL TAB* 25 MG PO SCH (07:51)
[2018-02-15] MEDS: Hydrochlorothiazide TAB* 25 MG PO SCH (07:51)
[2018-02-15] MEDS: Lisinopril TAB* 10 MG PO SCH (07:51)
[2018-02-15] MEDS: Gemfibrozil TAB* 600 MG PO SCH ×2 (07:52→21:44)
[2018-02-15] MEDS: Aspirin EC TAB* 81 MG TAB.EC PO SCH (07:57)
[2018-02-15] MEDS: Insulin LISPRO* 1 UNITS UNIT SUBCUT SCH ×3 (08:33→17:30)
[2018-02-15 09:48] LABS: ABS Basophils 0 10^3/ul (0-0.2); ABS Eosinophils 0 10^3/ul (0-0.6); ABS Lymphocytes 0.9 10^3/ul (1.0-4.8); ABS Monocytes 0.5 10^3/ul (0-0.8); ABS Neutrophils 7.4 10^3/ul (1.5-7.7); ABS Nucleated RBC 0 10^3/ul; Eosinophil % 0.2 % (0-6); Hematocrit 36 % (42-52); Hemoglobin 12.2 g/dl (14.0-18.0); Lymphocyte % 9.9 % (25-47); Mean Corpuscular HGB Conc 34 g/dl (31-36); Mean Corpuscular Hemoglobin 29 pg (27-31); Mean Corpuscular Volume 86 fL (80-94); Mean Platelet Volume 8.1 um3 (7.4-10.4); Nucleated Red Blood Cells % 0.1; Platelet Count 252 10^3/ul (150-450); Red Blood Count 4.19 10^6/ul (4.00-5.40); Red Cell Distribution Width 15 % (10.5-15); White Blood Count 8.8 10^3/ul (3.5-10.8)
[2018-02-15] MEDS: Vancomycin(*) 1,250 MG in NS 0.9% 250 ML* 250 ML IVPB SCH ×2 (09:56→21:44)
[2018-02-15] MEDS: Ondansetron INJ* 2 MG/ML VIAL IV PRN ×2 (09:56→23:21)
[2018-02-15 10:09] LABS: EGFR Non-African American 46.6 (>60)
--- NOTE | 2018-02-15 11:54 | PN ---
Subjective Date of Service: 02/15/18 Interval History: Pain L foot with WB limits his walking. No new c/o. Family History: Unchanged from Admission Social History: Unchanged from Admission Past Medical History: Unchanged from Admission Objective Active Medications: Acetaminophen (Tylenol Tab*) 650 mg PO Q4H PRN PRN Reason: FEVER/PAIN Last Admin: 02/14/18 21:57 Dose: 650 mg Al Hydrox/Mg Hydrox/Simethicone (Maalox Plus*) 30 ml PO Q6H PRN PRN Reason: INDIGESTION Last Admin: 02/15/18 02:14 Dose: 30 ml Aspirin (Aspirin Ec Tab*) 81 mg PO DAILY [facility] Last Admin: 02/15/18 07:57 Dose: 81 mg Atorvastatin Calcium (Lipitor*) 80 mg PO 2100 [facility] Last Admin: 02/14/18 21:44 Dose: 80 mg Dextrose (D50w Syringe 50 Ml*) 12.5 gm IV PUSH .FOR FS < 60 - SS PRN PRN Reason: FS < 60 Gemfibrozil (Lopid Tab*) 300 mg PO BID [facility] Last Admin: 02/15/18 07:52 Dose: 300 mg Heparin Sodium (Porcine) (Heparin Vial(*)) 5,000 units SUBCUT Q8HR [facility] Last Admin: 02/15/18 07:07 Dose: 5,000 units Hydrochlorothiazide (Hydrodiuril Tab*) 25 mg PO DAILY [facility] Last Admin: 02/15/18 07:51 Dose: 25 mg Cefepime HCl (Maxipime 2 Gm In Dextrose Duplex (*)) 2 gm in 50 mls @ 100 mls/ hr IV Q12H [facility] Last Admin: 02/14/18 23:46 Dose: 100 mls/hr Metronidazole/Sodium Chloride (Flagyl 500 Mg Ivpb*) 500 mg in 100 mls @ 100 mls /hr IVPB Q12H [facility] Last Admin: 02/15/18 00:28 Dose: 100 mls/hr Vancomycin HCl 1,250 mg/ (Sodium Chloride) 250 mls @ 166.667 mls/hr IVPB Q12H [facility] Last Admin: 02/15/18 09:56 Dose: 166.667 mls/hr Insulin Glargine (Lantus(*)) 48 units SUBCUT Q24H [facility] Last Admin: 02/14/18 21:45 Dose: 48 unit Insulin Human Lispro (Humalog*) 0 units SUBCUT AC [facility]; Protocol Last Admin: 02/15/18 08:33 Dose: 3 unit Lisinopril (Prinivil Tab*) 30 mg PO DAILY [facility] Last Admin: 02/15/18 07:51 Dose: 30 mg Metoprolol Succinate (Toprol Xl Tab*) 25 mg PO DAILY [facility] Last Admin: 02/15/18 07:51 Dose: 25 mg Niacin (Niaspan Er Tab*) 500 mg PO QPM [facility] Last Admin: 02/14/18 17:34 Dose: 500 mg Ondansetron HCl (Zofran Inj*) 4 mg IV Q4H PRN PRN Reason: NAUSEA Last Admin: 02/15/18 09:56 Dose: 4 mg Pharmacy Consult (Vancomycin Per Pharmacy*) 1 note FOLLOW UP .VANC PER PHARMACY [facility] Pharmacy Profile Note (Vancomycin Trough Check) 1 note FOLLOW UP 09 ONE Stop: 02/17/18 09:31 Vital Signs - 8 hr 02/15/18 02/15/18 02/15/18 07:40 08:35 09:07 Temperature 98.5 F Pulse Rate 85 62 Respiratory 17 Rate Blood Pressure 190/87 174/63 192/94 (mmHg) O2 Sat by Pulse 98 Oximetry 02/15/18 11:22 Temperature Pulse Rate Respiratory Rate Blood Pressure 169/83 (mmHg) O2 Sat by Pulse Oximetry Oxygen Devices in Use Now: None Appearance: Alert, supine in bed. In good spirits. Looks comfortable. Eyes: No Scleral Icterus Respiratory: Symmetrical Chest Expansion and Respiratory Effort, Clear to Auscultation, Clear to Percussion Cardiovascular: NL Sounds; No Murmurs; No JVD, RRR, No Edema, - Extremities: No Edema, No Clubbing, Cyanosis, - Skin: No Nodules or Sclerosis, - - L 3rd toe dark area. Cellulitis L lower leg much improved. Neurological: Alert and Oriented x 3, NL Sensation Result Diagrams: 02/15/18 09:29 02/15/18 09:29 Additional Lab and Data: . Microbiology and Other Data: Microbiology 02/10/18 18:24 Aerobic Blood Culture - Preliminary Blood Venous No Growth Day 1 Anaerobic Blood Culture - Preliminary No Growth Day 1 02/10/18 21:39 Skin and Soft Tissue MRSA/MSSA (PCR - Final Foot Left Mrsa Negative S.aureus Negative Gram Stain - Final Wound Culture - Preliminary No Growth Day 1 Assess/Plan/Problems-Billing Assessment: Mr. El is a 72-year-old male who carries a past medical history significant for hypertension, diabetes, coronary artery disease, hyperlipidemia, who presented to the emergency room after developing increased left foot pain, redness, and swelling. He was seen by podiatry on thursday and states that he scraped in between his 3rd and 4th toes. When he woke the next morning he noticed that his thrid toe had purple discoloration and there was some drainage. His clinical haematologist started him on cipro and clindamycin the day prior to admission. - Patient Problems (1) Cellulitis Current Visit: Yes Status: Acute Code(s): L03.90 - CELLULITIS, UNSPECIFIED SNOMED Code(s): 133739927 Comment: - Afebrile and no leukocytosis - MRI shows possible early osteomylitis (suspect secondary to diabetes) - Ortho consult appreciated. Awaitng ID consult. - ÁNGEL shows aterial insufficiency--Dr. Cosby could do revasc as outpt. - Wound culture negative for MRSA and MSSA - No significant growth - Blood culture no growth, day 4 - CRP and ESR elevated on admission - Continue Vancomycin, flagyl and cefepime (2) CKD (chronic kidney disease) Current Visit: No Status: Acute Code(s): N18.9 - CHRONIC KIDNEY DISEASE, UNSPECIFIED SNOMED Code(s): 393621332 Comment: - Acute AYDEN resolved with IVFs - Suspect secondary to diabetes BMP 02/16. (3) Type 2 diabetes mellitus Current Visit: No Status: Chronic Comment: - Glucose 114-205 02/14-/723 11 AM. - Continue lispro and lantus (4) Anemia Current Visit: No Status: Acute Code(s): D64.9 - ANEMIA, UNSPECIFIED SNOMED Code(s): 008794915 Comment: likely ACD- iron studies normal. f/u with PCP Ferritin 154 05/05/17. (5) HTN (hypertension) Current Visit: No Status: Chronic Code(s): I10 - ESSENTIAL (PRIMARY) HYPERTENSION SNOMED Code(s): 34292076 Comment: - Normotensive, SBP 130-140's - Continue HCTZ and Lisinopril Status and Disposition: Inpatient. Discharge home when medically stable
--- NOTE | 2018-02-15 12:06 | PN ---
Progress Note - Progress Note Date of Service: 02/15/18 SOAP: Subjective: []Patient seen at bedside. He is feeling nauseous and has vomit. His left third toe is not painful and patient feels it is much improved. Objective: [] Intake & Output 02/14/18 02/15/18 02/15/18 18:59 06:59 18:59 Intake Total 1220 250 210 Output Total 250 Balance 1220 0 210 Intake: IV Fluids 420 60 ABX 420 NS (0.9%) 60 IVPB 250 150 cefepime 50 flagyl 100 vancomycin 250 Oral 800 0 Output: Urine 250 Other: # Bowel Movements 0 Vital Signs Temp 98.5 F 02/15/18 07:40 Pulse 62 02/15/18 08:35 Resp 17 02/15/18 07:40 BP 169/83 02/15/18 11:22 Pulse Ox 98 02/15/18 07:40 Laboratory Last Values WBC 8.8 10^3/ul (3.5-10.8) 02/15/18 09:29 RBC 4.19 10^6/ul (4.00-5.40) 02/15/18 09:29 Hgb 12.2 g/dl (14.0-18.0) L 02/15/18 09:29 Hct 36 % (42-52) L 02/15/18 09:29 MCV 86 fL (80-94) 02/15/18 09:29 MCH 29 pg (27-31) 02/15/18 09:29 MCHC 34 g/dl (31-36) 02/15/18 09:29 RDW 15 % (10.5-15) 02/15/18 09:29 Plt Count 252 10^3/ul (150-450) 02/15/18 09:29 MPV 8.1 um3 (7.4-10.4) 02/15/18 09:29 Neut % (Auto) 83.9 % (38-83) H 02/15/18 09:29 Lymph % (Auto) 9.9 % (25-47) L 02/15/18 09:29 [place] % (Auto) 5.7 % (0-7) 02/15/18 09:29 Eos % (Auto) 0.2 % (0-6) 02/15/18 09:29 Baso % (Auto) 0.3 % (0-2) 02/15/18 09:29 Absolute Neuts (auto) 7.4 10^3/ul (1.5-7.7) 02/15/18 09:29 Absolute Lymphs (auto) 0.9 10^3/ul (1.0-4.8) L 02/15/18 09:29 Absolute Monos (auto) 0.5 10^3/ul (0-0.8) 02/15/18 09: Absolute Eos (auto) 0 10^3/ul (0-0.6) 02/15/18 09:29 Absolute Basos (auto) 0 10^3/ul (0-0.2) 02/15/18 09: Absolute Nucleated RBC 0 10^3/ul 02/15/18 09: Nucleated RBC % 0.1 02/15/18 09:29 ESR 83 mm/Hr (0-40) H 02/10/18 18:24 Sodium 136 mmol/L (135-145) 02/15/18 09:29 Potassium 4.5 mmol/L (3.5-5.0) 02/15/18 09: Chloride 101 mmol/L (101-111) 02/15/18 09: Carbon Dioxide 27 mmol/L (22-32) 02/15/18 09:29 Anion Gap 8 mmol/L (2-11) 02/15/18 09:29 BUN 25 mg/dL (6-24) H 02/15/18 09:29 Creatinine 1.48 mg/dL (0.67-1.17) H 02/15/18 09:29 Est GFR ( Amer) 56.4 (>60) 02/15/18 09:29 Est GFR (Non-Af Amer) 46.6 (>60) 02/15/18 09:29 BUN/Creatinine Ratio 16.9 (8-20) 02/15/18 09:29 Glucose 158 mg/dL (70-100) H 02/15/18 09:29 POC Glucose (mg/dL) 143 mg/dL (70-100) H 02/15/18 11:16 Hemoglobin A1c 8.8 % (4.0-5.6) H 02/11/18 06:46 Lactic Acid 1.2 mmol/L (0.5-2.0) 02/10/18 18:24 Calcium 9.3 mg/dL (8.6-10.3) 02/15/18 09:29 Total Bilirubin 0.40 mg/dL (0.2-1.0) 02/15/18 09:29 AST 28 U/L (13-39) 02/15/18 09:29 ALT 26 U/L (7-52) 02/15/18 09:29 Alkaline Phosphatase 76 U/L (34-104) 02/15/18 09:29 C-Reactive Protein 68.44 mg/L (<8.01) H 02/10/18 18:24 Total Protein 6.8 g/dL (6.4-8.9) 02/15/18 09:29 Albumin 3.6 g/dL (3.2-5.2) 02/15/18 09:29 Globulin 3.2 g/dL (2-4) 02/15/18 09:29 Albumin/Globulin Ratio 1.1 (1-3) 02/15/18 09: Lipase 10 U/L (11.0-82.0) L 02/15/18 09:29 Urine Color Yellow 02/12/18 08:50 Urine Appearance Clear 02/12/18 08:50 Urine pH 5.0 (5-9) 02/12/18 08:50 Ur Specific [place] 1.023 (1.010-1.030) 02/12/18 08:50 Urine Protein 2+(100 mg/dl) (Negative) A 02/12/18 08:50 Urine Ketones Negative (Negative) 02/12/18 08:50 Urine Blood Negative (Negative) 02/12/18 08:50 Urine Nitrate Negative (Negative) 02/12/18 08:50 Urine Bilirubin Negative (Negative) 02/12/18 08:50 Urine Urobilinogen Negative (Negative) 02/12/18 08:50 Ur Leukocyte Esterase Negative (Negative) 02/12/18 08:50 Urine WBC (Auto) Absent (Absent) 02/12/18 08:50 Urine RBC (Auto) Absent (Absent) 02/12/18 08:50 Ur Squamous Epith Cells Present (Absent) A 02/12/18 08:50 Urine Bacteria Absent (Absent) 02/12/18 08:50 Urine Glucose Negative (Negative) 02/12/18 08:50 Vancomycin Trough 19.4 mcg/mL 02/14/18 08:59 General: Appears pale, cool cloth on head. NAD, alert LLE: Left third toe remains erythematous/ slight purple discoloration, foot without erythema and no streaking proximally. Blanched area proximal to MTP much improved. Open lesion of webspace healing well without drainage. Nontender to palpation, movement of toes. Assessment: [] Left third toe infection Plan: [] Heel WB Requires revascularization Continue antibiotics and wound care without plan for surgery at this time.
[2018-02-15] MEDS: Cefepime 2 GM in Dextrose(*) 2 GM/50 ML BAG IV SCH ×2 (13:37→23:45)
[2018-02-15] MEDS: Acetaminophen TAB* 325 MG PO PRN ×2 (17:30→23:21)
[2018-02-15] MEDS: Niacin ER TAB* 500 MG PO SCH (17:30)
[2018-02-15] MEDS: Atorvastatin* 80 MG TAB PO SCH (21:44)
[2018-02-15] MEDS: Insulin GLARGINE(*) 1 UNITS UNIT SUBCUT SCH (21:45)
[2018-02-16] MEDS: metroNIDAZOLE IV 500 MG/100ML* 500 MG/100 ML BAG IVPB SCH ×3 (00:32→23:14)
[2018-02-16 07:31] LABS: EGFR Non-African American 33.1 (>60)
[2018-02-16] MEDS: Heparin VIAL(*) 5000 UNITS/ML VIAL (FIVE THOUSAND) SUBCUT SCH ×3 (07:41→22:10)
[2018-02-16] MEDS: Insulin LISPRO* 1 UNITS UNIT SUBCUT SCH ×3 (09:20→18:07)
[2018-02-16] MEDS: Vancomycin(*) 1,250 MG in NS 0.9% 250 ML* 250 ML IVPB SCH (09:20)
[2018-02-16] MEDS: Gemfibrozil TAB* 600 MG PO SCH ×2 (09:20→22:24)
[2018-02-16] MEDS: Lisinopril TAB* 10 MG PO SCH (09:21)
[2018-02-16] MEDS: Aspirin EC TAB* 81 MG TAB.EC PO SCH (09:21)
[2018-02-16] MEDS: Metoprolol Succinate XL TAB* 25 MG PO SCH (09:21)
[2018-02-16] MEDS: Hydrochlorothiazide TAB* 25 MG PO SCH (09:21)
--- NOTE | 2018-02-16 10:03 | PN ---
Progress Note - Progress Note Date of Service: 02/16/18 SOAP: Subjective: []Patient seen at bedside. He is feeling well without fever, chills, nausea, vomiting. Objective: []General: Appears well, NAD, alert LLE: Left third toe remains erythematous/ slight purple discoloration. Foot without erythema and no streaking proximally. Blanched area proximal to MTP much improved from admission. No longer any obvious open lesion in webspace. Assessment: [] Left third toe infection Plan: [] Heel WB Requires revascularization Continue antibiotics and wound care without plan for surgery at this time. Vital Signs Temp 99.1 F 02/16/18 07:33 Pulse 63 02/16/18 07:33 Resp 17 02/16/18 07:33 BP 177/70 02/16/18 07:33 Pulse Ox 98 02/16/18 07:33 Intake & Output 02/15/18 02/16/18 02/16/18 18:59 06:59 18:59 Intake Total 830 50 120 Output Total 1300 Balance 830 -1250 120 Intake: IV Fluids 560 NS (0.9%) 160 cefepime 50 flagyl 100 vancomycin 250 IVPB 150 50 cefepime 50 50 flagyl 100 Oral 120 0 120 Output: Urine 1300 Other: # Bowel Movements 0 # Voids 3 Laboratory Last Values WBC 8.8 10^3/ul (3.5-10.8) 02/15/18 09:29 RBC 4.19 10^6/ul (4.00-5.40) 02/15/18 09:29 Hgb 12.2 g/dl (14.0-18.0) L 02/15/18 09:29 Hct 36 % (42-52) L 02/15/18 09:29 MCV 86 fL (80-94) 02/15/18 09:29 MCH 29 pg (27-31) 02/15/18 09:29 MCHC 34 g/dl (31-36) 02/15/18 09:29 RDW 15 % (10.5-15) 02/15/18 09:29 Plt Count 252 10^3/ul (150-450) 02/15/18 09:29 MPV 8.1 um3 (7.4-10.4) 02/15/18 09:29 Neut % (Auto) 83.9 % (38-83) H 02/15/18 09:29 Lymph % (Auto) 9.9 % (25-47) L 02/15/18 09:29 Republic % (Auto) 5.7 % (0-7) 02/15/18 09:29 Eos % (Auto) 0.2 % (0-6) 02/15/18 09:29 Baso % (Auto) 0.3 % (0-2) 02/15/18 09:29 Absolute Neuts (auto) 7.4 10^3/ul (1.5-7.7) 02/15/18 09:29 Absolute Lymphs (auto) 0.9 10^3/ul (1.0-4.8) L 02/15/18 09:29 Absolute Monos (auto) 0.5 10^3/ul (0-0.8) 02/15/18 09:29 Absolute Eos (auto) 0 10^3/ul (0-0.6) 02/15/18 09:29 Absolute Basos (auto) 0 10^3/ul (0-0.2) 02/15/18 09:29 Absolute Nucleated RBC 0 10^3/ul 02/15/18 09:29 Nucleated RBC % 0.1 02/15/18 09:29 ESR 83 mm/Hr (0-40) H 02/10/18 18:24 Sodium 137 mmol/L (135-145) 02/16/18 06:49 Potassium 4.1 mmol/L (3.5-5.0) 02/16/18 06:49 Chloride 103 mmol/L (101-111) 02/16/18 06:49 Carbon Dioxide 27 mmol/L (22-32) 02/16/18 06:49 Anion Gap 7 mmol/L (2-11) 02/16/18 06:49 BUN 29 mg/dL (6-24) H 02/16/18 06:49 Creatinine 1.99 mg/dL (0.67-1.17) H 02/16/18 06:49 Est GFR ( Amer) 40.1 (>60) 02/16/18 06:49 Est GFR (Non-Af Amer) 33.1 (>60) 02/16/18 06:49 BUN/Creatinine Ratio 14.6 (8-20) 02/16/18 06:49 Glucose 142 mg/dL (70-100) H 02/16/18 06:49 POC Glucose (mg/dL) 135 mg/dL (70-100) H 02/16/18 07:46 Hemoglobin A1c 8.8 % (4.0-5.6) H 02/11/18 06:46 Lactic Acid 1.2 mmol/L (0.5-2.0) 02/10/18 18:24 Calcium 9.0 mg/dL (8.6-10.3) 02/16/18 06:49 Total Bilirubin 0.40 mg/dL (0.2-1.0) 02/15/18 09:29 AST 28 U/L (13-39) 02/15/18 09:29 ALT 26 U/L (7-52) 02/15/18 09:29 Alkaline Phosphatase 76 U/L (34-104) 02/15/18 09:29 C-Reactive Protein 26.25 mg/L (<8.01) H 02/16/18 06:49 Total Protein 6.8 g/dL (6.4-8.9) 02/15/18 09:29 Albumin 3.6 g/dL (3.2-5.2) 02/15/18 09:29 Globulin 3.2 g/dL (2-4) 02/15/18 09:29 Albumin/Globulin Ratio 1.1 (1-3) 02/15/18 09:29 Lipase 10 U/L (11.0-82.0) L 02/15/18 09:29 Urine Color Yellow 02/12/18 08:50 Urine Appearance Clear 02/12/18 08:50 Urine pH 5.0 (5-9) 02/12/18 08:50 Ur Specific Dexter 1.023 (1.010-1.030) 02/12/18 08:50 Urine Protein 2+(100 mg/dl) (Negative) A 02/12/18 08:50 Urine Ketones Negative (Negative) 02/12/18 08:50 Urine Blood Negative (Negative) 02/12/18 08:50 Urine Nitrate Negative (Negative) 02/12/18 08:50 Urine Bilirubin Negative (Negative) 02/12/18 08:50 Urine Urobilinogen Negative (Negative) 02/12/18 08:50 Ur Leukocyte Esterase Negative (Negative) 02/12/18 08:50 Urine WBC (Auto) Absent (Absent) 02/12/18 08:50 Urine RBC (Auto) Absent (Absent) 02/12/18 08:50 Ur Squamous Epith Cells Present (Absent) A 02/12/18 08:50 Urine Bacteria Absent (Absent) 02/12/18 08:50 Urine Glucose Negative (Negative) 02/12/18 08:50 Vancomycin Trough 19.4 mcg/mL 02/14/18 08:59
[2018-02-16] MEDS: Cefepime 2 GM in Dextrose(*) 2 GM/50 ML BAG IV SCH ×2 (11:30→22:10)
--- NOTE | 2018-02-16 12:39 | PN ---
Subjective Date of Service: 02/16/18 Interval History: Walks by bearing weight on L heel, uses walker. Pain control OK. No bowel c/ o. Appetite OK. Family History: Unchanged from Admission Social History: Unchanged from Admission Past Medical History: Unchanged from Admission Objective Active Medications: Acetaminophen (Tylenol Tab*) 650 mg PO Q4H PRN PRN Reason: FEVER/PAIN Last Admin: 02/15/18 23:21 Dose: 650 mg Al Hydrox/Mg Hydrox/Simethicone (Maalox Plus*) 30 ml PO Q6H PRN PRN Reason: INDIGESTION Last Admin: 02/15/18 02:14 Dose: 30 ml Aspirin (Aspirin Ec Tab*) 81 mg PO DAILY [facility] Last Admin: 02/16/18 09:21 Dose: 81 mg Atorvastatin Calcium (Lipitor*) 80 mg PO 2100 [facility] Last Admin: 02/15/18 21:44 Dose: 80 mg Dextrose (D50w Syringe 50 Ml*) 12.5 gm IV PUSH .FOR FS < 60 - SS PRN PRN Reason: FS < 60 Gemfibrozil (Lopid Tab*) 300 mg PO BID [facility] Last Admin: 02/16/18 09:20 Dose: 300 mg Heparin Sodium (Porcine) (Heparin Vial(*)) 5,000 units SUBCUT Q8HR [facility] Last Admin: 02/16/18 07:41 Dose: 5,000 units Hydrochlorothiazide (Hydrodiuril Tab*) 25 mg PO DAILY [facility] Last Admin: 02/16/18 09:21 Dose: 25 mg Cefepime HCl (Maxipime 2 Gm In Dextrose Duplex (*)) 2 gm in 50 mls @ 100 mls/ hr IV Q12H [facility] Last Admin: 02/16/18 11:30 Dose: 100 mls/hr Metronidazole/Sodium Chloride (Flagyl 500 Mg Ivpb*) 500 mg in 100 mls @ 100 mls /hr IVPB Q12H [facility] Last Admin: 02/16/18 12:29 Dose: 100 mls/hr Vancomycin HCl 1,250 mg/ (Sodium Chloride) 250 mls @ 166.667 mls/hr IVPB Q12H [facility] Last Admin: 02/16/18 09:20 Dose: 166.667 mls/hr Insulin Glargine (Lantus(*)) 48 units SUBCUT Q24H [facility] Last Admin: 02/15/18 21:45 Dose: 48 unit Insulin Human Lispro (Humalog*) 0 units SUBCUT AC [facility]; Protocol Last Admin: 02/16/18 12:29 Dose: 3 unit Lisinopril (Prinivil Tab*) 30 mg PO DAILY [facility] Last Admin: 02/16/18 09:21 Dose: 30 mg Metoprolol Succinate (Toprol Xl Tab*) 25 mg PO DAILY [facility] Last Admin: 02/16/18 09:21 Dose: 25 mg Niacin (Niaspan Er Tab*) 500 mg PO QPM [facility] Last Admin: 02/15/18 17:30 Dose: 500 mg Ondansetron HCl (Zofran Inj*) 4 mg IV Q4H PRN PRN Reason: NAUSEA Last Admin: 02/15/18 23:21 Dose: 4 mg Pharmacy Consult (Vancomycin Per Pharmacy*) 1 note FOLLOW UP .VANC PER PHARMACY [facility] Pharmacy Profile Note (Vancomycin Trough Check) 1 note FOLLOW UP 0930 ONE Stop: 02/17/18 09:31 Vital Signs - 8 hr 02/16/18 02/16/18 02/16/18 07:33 08:00 11:15 Temperature 99.1 F 98.8 F Pulse Rate 63 65 Respiratory 17 18 18 Rate Blood Pressure 177/70 148/72 (mmHg) O2 Sat by Pulse 98 97 Oximetry Oxygen Devices in Use Now: None Appearance: Alert, partly up in bed. In good spirits. Looks comfortable. Eyes: No Scleral Icterus Extremities: No Clubbing, Cyanosis Skin: No Nodules or Sclerosis, - - L 3rd toe sl re/purple. Wound has closed. Tr edema L foot dorsum. Neurological: Alert and Oriented x 3, NL Sensation Result Diagrams: 02/15/18 09:29 02/16/18 06:49 Additional Lab and Data: . Microbiology and Other Data: Microbiology 02/10/18 18:24 Aerobic Blood Culture - Preliminary Blood Venous No Growth Day 1 Anaerobic Blood Culture - Preliminary No Growth Day 1 02/10/18 21:39 Skin and Soft Tissue MRSA/MSSA (PCR - Final Foot Left Mrsa Negative S.aureus Negative Gram Stain - Final Wound Culture - Preliminary No Growth Day 1 Assess/Plan/Problems-Billing Assessment: Mr. El is a 72-year-old male who carries a past medical history significant for hypertension, diabetes, coronary artery disease, hyperlipidemia, who presented to the emergency room after developing increased left foot pain, redness, and swelling. He was seen by podiatry on thursday and states that he scraped in between his 3rd and 4th toes. When he woke the next morning he noticed that his thrid toe had purple discoloration and there was some drainage. His field operations coordinator started him on cipro and clindamycin the day prior to admission. - Patient Problems (1) Cellulitis Current Visit: Yes Status: Acute Code(s): L03.90 - CELLULITIS, UNSPECIFIED SNOMED Code(s): 742179378 Comment: - Afebrile and no leukocytosis - MRI shows possible early osteomylitis (suspect secondary to diabetes) - Ortho consult appreciated. Awaitng ID consult. - ÁNGEL shows aterial insufficiency--Dr. Cosby could do revasc as outpt. - Wound culture negative for MRSA and MSSA - No significant growth - Blood culture no growth, day 4 - CRP and ESR elevated on admission - Continue Vancomycin, flagyl and cefepime (2) CKD (chronic kidney disease) Current Visit: No Status: Acute Code(s): N18.9 - CHRONIC KIDNEY DISEASE, UNSPECIFIED SNOMED Code(s): 067507165 Comment: - Acute AYDEN resolved with IVFs - Suspect secondary to diabetes Creat increased to 1.99 02/16. Check PVR by bladder scan. Repeat BMP 02/17. (3) Type 2 diabetes mellitus Current Visit: No Status: Chronic Comment: Continue lispro and lantus FS glucose 135, 188 on 02/16. (4) Anemia Current Visit: No Status: Acute Code(s): D64.9 - ANEMIA, UNSPECIFIED SNOMED Code(s): 380310750 Comment: likely ACD- iron studies normal. f/u with PCP Ferritin 154 05/05/17. (5) HTN (hypertension) Current Visit: No Status: Chronic Code(s): I10 - ESSENTIAL (PRIMARY) HYPERTENSION SNOMED Code(s): 21489166 Comment: BP 148/72 02/16. - Continue Lisinopril Status and Disposition: Inpatient. Discharge home when medically stable
--- NOTE | 2018-02-16 16:16 | PN ---
Progress Note - Progress Note Date of Service: 02/16/18 Note: PVR 143 ml by bladder scan.
[2018-02-16] MEDS: Niacin ER TAB* 500 MG PO SCH (18:08)
[2018-02-16] MEDS: Insulin GLARGINE(*) 1 UNITS UNIT SUBCUT SCH (22:09)
[2018-02-16] MEDS: Acetaminophen TAB* 325 MG PO PRN (22:09)
[2018-02-16] MEDS: Atorvastatin* 80 MG TAB PO SCH (22:09)
[2018-02-17] MEDS: Heparin VIAL(*) 5000 UNITS/ML VIAL (FIVE THOUSAND) SUBCUT SCH ×3 (05:56→20:31)
[2018-02-17] MEDS: Insulin LISPRO* 1 UNITS UNIT SUBCUT SCH ×3 (08:44→17:53)
[2018-02-17] MEDS: Metoprolol Succinate XL TAB* 25 MG PO SCH (08:45)
[2018-02-17] MEDS: Lisinopril TAB* 10 MG PO SCH (08:45)
[2018-02-17] MEDS: Aspirin EC TAB* 81 MG TAB.EC PO SCH (08:45)
[2018-02-17] MEDS: Gemfibrozil TAB* 600 MG PO SCH ×2 (08:46→20:30)
--- NOTE | 2018-02-17 08:49 | PN ---
Progress Note - Progress Note Date of Service: 02/17/18 Note: I saw and evaluated doing this morning. I have been following him for a left third toe infection. He has been on IV antibiotics. He reports that the pain, swelling and redness have improved. I agree with him. On exam today, the toe is much less swollen. There is minimal erythema. He has nonpalpable pulses. I recommend continuing antibiotics as guided by the infectious disease service. I recommend he try to remain heel weightbearing as much as possible. He will need a revascularization to try and restore adequate blood flow to the foot. Jesu Fraire MD
[2018-02-17] MEDS ORDERED: Vancomycin Trough Check NOTE FOLLOW UP ONE (09:30)
--- NOTE | 2018-02-17 11:04 | PN ---
Subjective Date of Service: 02/17/18 Interval History: Walked twice around the block today. Not using analgesics very much. No bowel c/o, no new c/o. Family History: Unchanged from Admission Social History: Unchanged from Admission Past Medical History: Unchanged from Admission Objective Active Medications: Acetaminophen (Tylenol Tab*) 650 mg PO Q4H PRN PRN Reason: FEVER/PAIN Last Admin: 02/16/18 22:09 Dose: 650 mg Al Hydrox/Mg Hydrox/Simethicone (Maalox Plus*) 30 ml PO Q6H PRN PRN Reason: INDIGESTION Last Admin: 02/15/18 02:14 Dose: 30 ml Aspirin (Aspirin Ec Tab*) 81 mg PO DAILY [facility] Last Admin: 02/17/18 08:45 Dose: 81 mg Atorvastatin Calcium (Lipitor*) 80 mg PO 2100 [facility] Last Admin: 02/16/18 22:09 Dose: 80 mg Dextrose (D50w Syringe 50 Ml*) 12.5 gm IV PUSH .FOR FS < 60 - SS PRN PRN Reason: FS < 60 Gemfibrozil (Lopid Tab*) 300 mg PO BID [facility] Last Admin: 02/17/18 08:46 Dose: 300 mg Heparin Sodium (Porcine) (Heparin Vial(*)) 5,000 units SUBCUT Q8HR [facility] Last Admin: 02/17/18 05:56 Dose: 5,000 units Metronidazole/Sodium Chloride (Flagyl 500 Mg Ivpb*) 500 mg in 100 mls @ 100 mls /hr IVPB Q12H [facility] Last Admin: 02/16/18 23:14 Dose: 100 mls/hr Ceftriaxone Sodium 2 gm/ (Sodium Chloride) 100 mls @ 200 mls/hr IVPB Q24H [facility] Insulin Glargine (Lantus(*)) 48 units SUBCUT Q24H [facility] Last Admin: 02/16/18 22:09 Dose: 48 unit Insulin Human Lispro (Humalog*) 0 units SUBCUT [facility]; Protocol Last Admin: 02/17/18 08:44 Dose: Not Given Lisinopril (Prinivil Tab*) 30 mg PO DAILY [facility] Last Admin: 02/17/18 08:45 Dose: 30 mg Metoprolol Succinate (Toprol Xl Tab*) 25 mg PO DAILY [facility] Last Admin: 02/17/18 08:45 Dose: 25 mg Niacin (Niaspan Er Tab*) 500 mg PO QPM [facility] Last Admin: 02/16/18 18:08 Dose: 500 mg Ondansetron HCl (Zofran Inj*) 4 mg IV Q4H PRN PRN Reason: NAUSEA Last Admin: 02/15/18 23:21 Dose: 4 mg Vital Signs - 8 hr 02/17/18 02/17/18 03:21 07:27 Temperature 97.7 F 98.6 F Pulse Rate 68 62 Respiratory 18 17 Rate Blood Pressure 123/43 146/60 (mmHg) O2 Sat by Pulse 94 99 Oximetry Oxygen Devices in Use Now: None Appearance: Alert, partly up in bed. In good spirits. Looks comfortable. Eyes: No Scleral Icterus Extremities: No Edema, No Clubbing, Cyanosis Skin: No Nodules or Sclerosis, - - dark purple base of L third toe. Scaly dry skin on foot. Neurological: Alert and Oriented x 3, NL Sensation Result Diagrams: 02/15/18 09:29 02/17/18 07:01 Additional Lab and Data: . Microbiology and Other Data: Microbiology 02/10/18 18:24 Aerobic Blood Culture - Preliminary Blood Venous No Growth Day 1 Anaerobic Blood Culture - Preliminary No Growth Day 1 02/10/18 21:39 Skin and Soft Tissue MRSA/MSSA (PCR - Final Foot Left Mrsa Negative S.aureus Negative Gram Stain - Final Wound Culture - Preliminary No Growth Day 1 Assess/Plan/Problems-Billing Assessment: Mr. El is a 72-year-old male who carries a past medical history significant for hypertension, diabetes, coronary artery disease, hyperlipidemia, who presented to the emergency room after developing increased left foot pain, redness, and swelling. He was seen by podiatry on thursday and states that he scraped in between his 3rd and 4th toes. When he woke the next morning he noticed that his thrid toe had purple discoloration and there was some drainage. His seaport planning manager started him on cipro and clindamycin the day prior to admission. - Patient Problems (1) Cellulitis Current Visit: Yes Status: Acute Code(s): L03.90 - CELLULITIS, UNSPECIFIED SNOMED Code(s): 687939102 Comment: - Afebrile and no leukocytosis - MRI shows possible early osteomylitis. Dr. Yanes recommends 2 more weeks IV ceftriazxone 2 gms daily, can go to infusion center. They can put in midline. - ÁNGEL shows aterial insufficiency--I called Dr. Cosby's office to arrange for outpt angiography/revasc. Repeat CRP 02/18. (2) CKD (chronic kidney disease) Current Visit: No Status: Acute Code(s): N18.9 - CHRONIC KIDNEY DISEASE, UNSPECIFIED SNOMED Code(s): 578383546 Comment: - Acute AYDEN resolved with IVFs - Suspect secondary to diabetes.deterioration due to infection. Creat increased to 2.30 02/17. PVR by bladder scan 173 ml 02/16. Repeat BMP . (3) Type 2 diabetes mellitus Current Visit: No Status: Chronic Comment: Continue lispro and lantus FS glucose 135, 188 on 02/16. (4) Anemia Current Visit: No Status: Acute Code(s): D64.9 - ANEMIA, UNSPECIFIED SNOMED Code(s): 810345751 Comment: likely ACD- iron studies normal. f/u with PCP Ferritin 154 05/05/17. (5) HTN (hypertension) Current Visit: No Status: Chronic Code(s): I10 - ESSENTIAL (PRIMARY) HYPERTENSION SNOMED Code(s): 41953497 Comment: BP 148/72 02/16. - Continue Lisinopril Status and Disposition: Inpatient. Discharge home when medically stable
[2018-02-17] MEDS: Cefepime 2 GM in Dextrose(*) 2 GM/50 ML BAG IV SCH (11:22)
[2018-02-17] MEDS: metroNIDAZOLE IV 500 MG/100ML* 500 MG/100 ML BAG IVPB SCH ×2 (11:56→23:31)
[2018-02-17] MEDS: cefTRIAXone(*) 2 GM in NS 0.9% 100 ML* 100 ML IVPB SCH (14:30)
--- NOTE | 2018-02-17 15:47 | CONS ---
CONSULTATION REPORT: DATE OF CONSULT: 02/17/18 REQUESTING PHYSICIAN: Dr. Beard. CONSULTING SERVICE: Infectious Disease. REASON FOR CONSULT: Left foot infection. IMPRESSION: 1. Cellulitis and infected myositis of the left third toe. MRI showed some bone marrow edema of third proximal phalanx without loss of T1 hyperintensity. Given that he has been dealing with this grossly abnormal toe for about 2 months , I am concerned that there is acute osteomyelitis. The soft tissue component of the infection is slowly improving. Microbiology differential includes gram positives, sometimes anaerobes. 2. Peripheral vascular disease. 3. Diabetes with peripheral neuropathy. 4. Chronic kidney disease with acute kidney injury. RECOMMENDATION: We will stop vancomycin, cefepime, and we will start ceftriaxone 2 g a day, which does not need adjustment for renal function which is fluctuating. Continue his Flagyl 500 mg IV every 12 hours. He has had a number of initial treatments with oral antibiotics that led to relapse. He has now had about a week of IV antibiotics and recommend he have 2 more weeks of IV. We will reevaluate at that time whether or not we can switch him to oral therapy. He is going to follow up with Dr. Cosby for evaluation of revascularization of that leg. HISTORY OF PRESENT ILLNESS: This is a 72-year-old male with chronic kidney disease, diabetes, admitted with left foot infection. It has been centered around the left third toe, has been dealing with an infection there, swelling, redness, some pain and occasional superficial ulceration for about 2 to 3 months. He was admitted to the hospital at the end of November and treated with IV antibiotics for it. Had a little of improvement and then was discharged on oral antibiotic which, at the end of November, was Augmentin. Since that time, he has had slow return of the swelling, redness, and pain. He has followed with Dr. Kilgore, who did some debridement, had ordered an MRI as an outpatient. Because of the pain, swelling, and redness, which spread up his foot, he came to the hospital on 02/11/18. He was started on vancomycin, cefepime, and Flagyl. His creatinine at that time was 1.2, was down to 1.5, is up to 2.3 today. The BUN is 36. Pain, redness, and swelling in the foot are much better. He still has some in the third toe, which has also improved overall. He has had Vascular evaluation which is ongoing. He had an MRI of the left foot on 02/11/18, showed soft tissue swelling, increased T2 intensity in the proximal phalanx of third toe without loss of T1 hyperintensity, which is in the area of the slight ulceration. PAST MEDICAL HISTORY: 1. Coronary artery disease, status post CABG about 3 months ago. 2. Diabetes with neuropathy. 3. Chronic kidney disease. 4. Hypertension. 5. Hyperlipidemia. 6. Status post right knee arthroplasty. 7. Status post right shoulder arthroplasty. 8. History of PCI, 2008. MEDICATIONS: 1. Tylenol. 2. Lipitor. 3. Aspirin. 4. Gemfibrozil. 5. Heparin subcutaneous injection. 6. Insulin glargine. 7. Insulin lispro. 8. Lisinopril. 9. Metoprolol. 10. Flagyl 500 mg every 12 hours. 11. Niacin. 12. Zofran. 13. Cefepime 2 g every 12 hours. ALLERGIES: No known drug allergies. FAMILY HISTORY: No recurrent infections or tuberculosis. His father was at 55 from an [place]. A brother of renal cell carcinoma in his 50s. SOCIAL HISTORY: Lives in [place] with his . He has no travel or sick contacts. REVIEW OF SYSTEMS: All negative to a 14-point review of systems except as noted above in the history of present illness. PHYSICAL EXAM: Vital Signs: Temperature 37, heart rate 60, respiratory rate 17 , blood pressure 146/60, oxygen 99% on room air. In general, he is awake, not in distress. Neurologic: He is oriented x3. Follows all commands. HEENT: There is no conjunctival hemorrhage. Oropharynx is without lesions. Neck is supple without mass. Lymph Nodes: There is no cervical, supraclavicular, inguinal, axillary, or epitrochlear lymphadenopathy. Heart has regular rate and rhythm without murmurs, rubs, or gallops. Lungs are clear to auscultation bilaterally. Abdomen: Soft, nontender, nondistended. There are bowel sounds present. Skin: There is no rash or splinter hemorrhages. Musculoskeletal: The left foot, there is trace edema with mild erythema in the third toe with slight darkening and superficial dry skin and callus on the dorsal third toe. There is no crepitus or fluctuance. The foot is warm. LABORATORY DATA: White blood cell count 8, hemoglobin 12, platelets 252. Creatinine is 2.3. C-reactive protein 26. Urinalysis shows protein. Please see impressions and recommendations as outlined above, which I have discussed with Dr. Beard. Thanks for asking me to see Mr. El in consultation. [id number]/[facility] #: [id number] MTDD
[2018-02-17] MEDS: Niacin ER TAB* 500 MG PO SCH (17:53)
[2018-02-17] MEDS: Atorvastatin* 80 MG TAB PO SCH (20:30)
[2018-02-17] MEDS: Insulin GLARGINE(*) 1 UNITS UNIT SUBCUT SCH (20:34)
[2018-02-18] MEDS ORDERED: Senna TAB PO ONE (03:00)
[2018-02-18] MEDS: Acetaminophen TAB* 325 MG PO PRN (03:44)
[2018-02-18] MEDS: Heparin VIAL(*) 5000 UNITS/ML VIAL (FIVE THOUSAND) SUBCUT SCH ×2 (06:01→13:16)
[2018-02-18 07:31] LABS: EGFR Non-African American 28.4 (>60)
[2018-02-18] MEDS: Lisinopril TAB* 10 MG PO SCH (09:27)
[2018-02-18] MEDS: Insulin LISPRO* 1 UNITS UNIT SUBCUT SCH ×3 (09:27→17:45)
[2018-02-18] MEDS: Metoprolol Succinate XL TAB* 25 MG PO SCH (09:27)
[2018-02-18] MEDS: Aspirin EC TAB* 81 MG TAB.EC PO SCH (09:27)
[2018-02-18] MEDS: Gemfibrozil TAB* 600 MG PO SCH (09:28)
[2018-02-18] MEDS: metroNIDAZOLE IV 500 MG/100ML* 500 MG/100 ML BAG IVPB SCH (11:30)
--- NOTE | 2018-02-18 14:44 | PN ---
Subjective Date of Service: 02/18/18 Interval History: Pt seen and examined. Meds and labs reviewed ROS: Denied GONZALEZ/dizziness, F/C, N/V, CP, SOB, increased cough, sputum production , abd pain, diarrhea, constipation, dysuria, myalgias, arthralgias, throat pain , and new skin lesions. The rest of the 14 point ROS are unremarkable. PHYSICAL EXAM: GEN APPEARANCE: Awake, not in acute distress HEENT: NC/AT, PERRLA, moist oral mucosa, (-) throat erythema NECK: Soft, supple, (-) cervical LAD, (-)JVD HEART: S1S2 WNL, RRR, No MRG CHEST: CTA, BL, GAE, No W/R/R ABD: Soft, ND/NT, NABS 4x Q EXT: No C/C/E SKIN: Warm to touch PSYCH: No active psychosis, hallucinations, depression, SI/HI Family History: Unchanged from Admission Social History: Unchanged from Admission Past Medical History: Unchanged from Admission Objective Active Medications: Acetaminophen (Tylenol Tab*) 650 mg PO Q4H PRN PRN Reason: FEVER/PAIN Last Admin: 02/18/18 03:44 Dose: 650 mg Al Hydrox/Mg Hydrox/Simethicone (Maalox Plus*) 30 ml PO Q6H PRN PRN Reason: INDIGESTION Last Admin: 02/15/18 02:14 Dose: 30 ml Amlodipine Besylate (Norvasc Tab*) 5 mg PO DAILY [facility] Aspirin (Aspirin Ec Tab*) 81 mg PO DAILY [facility] Last Admin: 02/18/18 09:27 Dose: 81 mg Atorvastatin Calcium (Lipitor*) 80 mg PO 2100 [facility] Last Admin: 02/17/18 20:30 Dose: 80 mg Dextrose (D50w Syringe 50 Ml*) 12.5 gm IV PUSH .FOR FS < 60 - SS PRN PRN Reason: FS < 60 Gemfibrozil (Lopid Tab*) 300 mg PO BID [facility] Last Admin: 02/18/18 09:28 Dose: 300 mg Heparin Sodium (Porcine) (Heparin Vial(*)) 5,000 units SUBCUT Q8HR [facility] Last Admin: 02/18/18 13:16 Dose: 5,000 units Metronidazole/Sodium Chloride (Flagyl 500 Mg Ivpb*) 500 mg in 100 mls @ 100 mls /hr IVPB Q12H [facility] Last Admin: 02/18/18 11:30 Dose: 100 mls/hr Ceftriaxone Sodium 2 gm/ (Sodium Chloride) 100 mls @ 200 mls/hr IVPB Q24H [facility] Last Admin: 02/17/18 14:30 Dose: 200 mls/hr Insulin Glargine (Lantus(*)) 48 units SUBCUT Q24H [facility] Last Admin: 02/17/18 20:34 Dose: 48 unit Insulin Human Lispro (Humalog*) 0 units SUBCUT AC [facility]; Protocol Last Admin: 02/18/18 13:15 Dose: 6 unit Lisinopril (Prinivil Tab*) 30 mg PO DAILY [facility] Last Admin: 02/18/18 09:27 Dose: 30 mg Metoprolol Succinate (Toprol Xl Tab*) 25 mg PO DAILY [facility] Last Admin: 02/18/18 09:27 Dose: 25 mg Niacin (Niaspan Er Tab*) 500 mg PO QPM [facility] Last Admin: 02/17/18 17:53 Dose: 500 mg Ondansetron HCl (Zofran Inj*) 4 mg IV Q4H PRN PRN Reason: NAUSEA Last Admin: 02/15/18 23:21 Dose: 4 mg Vital Signs - 8 hr 02/18/18 02/18/18 02/18/18 07:30 08:00 08:09 Temperature 98.6 F 98.6 F Pulse Rate 63 63 Respiratory 16 16 16 Rate Blood Pressure 157/73 157/73 (mmHg) O2 Sat by Pulse 99 99 Oximetry 02/18/18 11:02 Temperature 98.1 F Pulse Rate 65 Respiratory 18 Rate Blood Pressure 172/71 (mmHg) O2 Sat by Pulse 99 Oximetry Oxygen Devices in Use Now: None Result Diagrams: 02/15/18 09:29 02/18/18 06:30 Additional Lab and Data: . Microbiology and Other Data: Microbiology 02/10/18 18:24 Aerobic Blood Culture - Preliminary Blood Venous No Growth Day 1 Anaerobic Blood Culture - Preliminary No Growth Day 1 02/10/18 21:39 Skin and Soft Tissue MRSA/MSSA (PCR - Final Foot Left Mrsa Negative S.aureus Negative Gram Stain - Final Wound Culture - Preliminary No Growth Day 1 Assess/Plan/Problems-Billing Assessment: Mr. El is a 72-year-old male who carries a past medical history significant for hypertension, diabetes, coronary artery disease, hyperlipidemia, who presented to the emergency room after developing increased left foot pain, redness, and swelling. He was seen by podiatry on thursday and states that he scraped in between his 3rd and 4th toes. When he woke the next morning he noticed that his thrid toe had purple discoloration and there was some drainage. His advanced practice registered nurse started him on cipro and clindamycin the day prior to admission. - Patient Problems (1) Cellulitis Current Visit: Yes Status: Acute Code(s): L03.90 - CELLULITIS, UNSPECIFIED SNOMED Code(s): 747861388 Comment: - Afebrile and no leukocytosis - MRI shows possible early osteomylitis. Dr. Yanes recommends 2 more weeks IV ceftriazxone 2 gms daily, can go to infusion center. They can put in midline. - ÁNGEL shows aterial insufficiencyDrRose Marie Beard called Dr. Cosby's office to arrange for outpt angiography/revasc. Repeat CRP 02/18. (2) CKD (chronic kidney disease) Current Visit: No Status: Acute Code(s): N18.9 - CHRONIC KIDNEY DISEASE, UNSPECIFIED SNOMED Code(s): 778449696 Comment: - Acute AYDEN resolved with IVFs - Suspect secondary to diabetes; deterioration due to infection. (3) HTN (hypertension) Current Visit: No Status: Chronic Code(s): I10 - ESSENTIAL (PRIMARY) HYPERTENSION SNOMED Code(s): 66372101 Comment: - Continue Lisinopril -Will add Amlodipine to regimen (4) Type 2 diabetes mellitus Current Visit: No Status: Chronic Comment: Continue lispro and lantus FS glucose 135, 188 on 02/16. (5) Anemia Current Visit: No Status: Acute Code(s): D64.9 - ANEMIA, UNSPECIFIED SNOMED Code(s): 398606693 Comment: likely ACD- iron studies normal. f/u with PCP Ferritin 154 05/05/17. Status and Disposition: -For possible D/C home in AM with F/U to infusion center
[2018-02-18] MEDS ORDERED: amLODIPine TAB* 5 MG PO SCH (15:00)
[2018-02-18] MEDS: cefTRIAXone(*) 2 GM in NS 0.9% 100 ML* 100 ML IVPB SCH (15:44)
[2018-02-18 17:01] VITALS: BP 173/72
[2018-02-18] MEDS: Niacin ER TAB* 500 MG PO SCH (17:40)
--- NOTE | 2018-02-19 02:52 | DS ---
CC: Triny Regan MD; Rosas Murphy MD; Jl Yanes MD; Jesu Fraire MD; Hamlet Cosby MD; Priya Brooks MD * DISCHARGE SUMMARY: DATE OF ADMISSION: DATE OF DISCHARGE: 02/18/18 DISCHARGE DIAGNOSES: As follows: 1. Cellulitis of the left lower extremity. 2. Chronic kidney disease. 3. Hypertension. 4. Type 2 diabetes. 5. Anemia. HISTORY OF PRESENT ILLNESS/HOSPITAL COURSE: The patient is a 72-year-old gentleman with history of hypertension, CAD, and diabetes who presented to the emergency room on 02/10/18 after developing an increased left foot pain and redness and swelling at the area. He mentions that he has also been found some occasionally superficial ulceration for about 2 to 3 months. He was admitted and was initially treated with vancomycin, cefepime, and Flagyl , which has since been narrowed to Rocephin 2 g IV daily. He was also evaluated by both Dr. Yanes and Dr. Cosby. Dr. Yanes recommended 2 more weeks of IV ceftriaxone 2 g per day therapy and while Dr. Cosby has assessed the case, reviewed his imaging studies and suggested an outpatient followup instead with no need for acute surgical procedure at this time. He had been advised to follow up and/or call his PCP within 3 days post discharge, to call [facility] if his PCP cannot see him any sooner ; however, he must first contact PCP to make sure that his PCP agrees that this is appropriate versus an ER visit. He is to follow up at an infusion clinic to finish his antibiotic course as described and he is to follow up with Dr. Cosby as an outpatient. The patient had been given Dr. Cosby's office number to make/verify followup appointment. He was also advised to call my office regarding any questions, concerns, or further clarifications regarding his discharge plans and/or prescriptions and to take his medications as prescribed. PHYSICAL EXAMINATION: Shows most recent vital signs of records with temperature of 98.1 degrees Fahrenheit, 65 beats per minute heart rate, 18 per minute respiratory rate, saturating at 99%, blood pressure of 157/73. General Appearance: The patient is awake, alert, and oriented x3, not in acute distress. HEENT: Normocephalic, atraumatic. PERRLA. Extraocular muscles intact. Negative for icterus. Moist oral mucosa. Negative throat erythema. Neck is soft, supple with no cervical lymphadenopathy. No JVD. Heart: S1, S2 within normal limits. Regular rate and rhythm. No murmurs, rubs, and gallops. Chest: Clear to auscultation bilaterally. Good air entry. No wheezes, rales, or rhonchi. Abdomen is soft, nondistended, nontender. Normoactive bowel sounds x4. Extremities: No cyanosis, clubbing with trace left lower extremity edema, erythema, and tenderness has resolved. Psychiatric: No active psychosis , depression, suicidal nor homicidal ideations. Skin is warm to touch. Please see above finding on extremity exam. DISCHARGE MEDICATIONS: Are as follows: 1. Tylenol 650 mg p.o. q.4 p.r.n. 2. Amlodipine 5 mg p.o. daily. 3. Aspirin 81 mg p.o. daily. 4. Atorvastatin 80 mg p.o. daily. 5. Gemfibrozil 300 mg p.o. b.i.d. 6. Lisinopril 30 mg p.o. daily. 7. Metoprolol succinate 25 mg p.o. daily. 8. Niacin 500 mg p.o. q.p.m. 9. Acetaminophen/codeine 1 to 2 tabs p.o. q.6 p.r.n. 10. Rocephin 2 g IV daily. 11. Insulin degludec 48 units subcu daily. 12. Insulin NPH subcu t.i.d. 0 to 20 units. 13. Floranex tablets 1 tab p.o. daily for 18 days. 14. Meloxicam 15 mg p.o. daily. 15. Omeprazole 20 mg p.o. daily. TIME SPENT: The total time spent evaluating the patient, reviewing pertinent data, and appropriate documentation is greater than 30 minutes. [id number]/[facility] #: [id number] [facility]
== END 2018-02-18 18:45 | disposition home or self-care (01) | DRG 603 ==
LOC: ED 14:20 → MED 22:09
PROVIDERS: ADMIT Pediatrics; ATTEND Student in an Organized Health Care Education/Training Program
DX: L03.032 Cellulitis of left toe (principal); N17.9 Acute kidney failure, unspecified; E11.22 Type 2 diabetes mellitus with diabetic chronic kidney disease; I12.9 Hypertensive chronic kidney disease with stage 1 through stage 4 chronic kidney disease, or unspecified chronic kidney disease; N18.9 Chronic kidney disease, unspecified; D64.9 Anemia, unspecified; I25.10 Atherosclerotic heart disease of native coronary artery without angina pectoris; E78.5 Hyperlipidemia, unspecified; Z96.651 Presence of right artificial knee joint; Z96.611 Presence of right artificial shoulder joint; H91.90 Unspecified hearing loss, unspecified ear; Z82.49 Family history of ischemic heart disease and other diseases of the circulatory system; Z87.891 Personal history of nicotine dependence; Z95.5 Presence of coronary angioplasty implant and graft; Z97.4 Presence of external hearing-aid; Z95.1 Presence of aortocoronary bypass graft; Z98.42 Cataract extraction status, left eye; Z98.41 Cataract extraction status, right eye; Z79.82 Long term (current) use of aspirin; Z79.4 Long term (current) use of insulin
CPT/HCPCS: 36415; 75635; 80048; 80053; 80202; 81003; 81015; 82565; 83036; 83605; 83690; 84520; 85025; 85652; 86140; 87040; 87070; 87205; 87640; 87641; 93922; 99284; A9270-GY; G8978-GP-CI; G8979-GP-CI; G8980-GP-CI; J0692; J0696; J1644; J2405; J2543; J3370; J3490; Q9967

== ENCOUNTER 2018-02-24 09:31 | Inpatient (IN) | payer MEDICARE ==
[2018-02-24] MEDS ORDERED: Acetaminophen TAB* 325 MG PO PRN (10:28)
[2018-02-24] MEDS ORDERED: Vancomycin(*) 1,750 MG in NS 0.9% 250 ML* 250 ML IVPB ONE (11:00)
[2018-02-24] MEDS ORDERED: Vancomycin(*) 1,000 MG VIAL IVPB SCH (11:00)
[2018-02-24] MEDS ORDERED: Vancomycin per Pharmacy* NOTE FOLLOW UP PRN (11:03)
[2018-02-24] MEDS: NS 0.9% 1000 ML* 1,000 ML IV SCH ×2 (11:29→22:04)
[2018-02-24 12:11] LABS: ABS Basophils 0.1 10^3/ul (0-0.2); ABS Eosinophils 0.3 10^3/ul (0-0.6); ABS Lymphocytes 0.9 10^3/ul (1.0-4.8); ABS Monocytes 0.6 10^3/ul (0-0.8); ABS Neutrophils 8.2 10^3/ul (1.5-7.7); ABS Nucleated RBC 0 10^3/ul; Eosinophil % 2.8 % (0-6); Hematocrit 30 % (42-52); Hemoglobin 10.2 g/dl (14.0-18.0); Mean Corpuscular HGB Conc 34 g/dl (31-36); Mean Corpuscular Hemoglobin 29 pg (27-31); Mean Corpuscular Volume 86 fL (80-94); Mean Platelet Volume 7.6 um3 (7.4-10.4); Nucleated Red Blood Cells % 0; Platelet Count 284 10^3/ul (150-450); Red Blood Count 3.47 10^6/ul (4.00-5.40); Red Cell Distribution Width 15 % (10.5-15); White Blood Count 10.1 10^3/ul (3.5-10.8)
[2018-02-24 12:29] LABS: EGFR Non-African American 11.6 (>60)
[2018-02-24] MEDS ORDERED: Dextrose 50% Syringe 50 ML* 25 GM/50 ML SYRINGE IV PUSH PRN (12:54)
[2018-02-24] MEDS ORDERED: Sodium Polystyrene ORAL.SOL* 15 GM/60 ML BTL PO ONE ×2 (12:59→18:00)
[2018-02-24] MEDS ORDERED: Perflutren Lipid Microsphere* 3 ML VIAL ONE (14:00)
[2018-02-24] MEDS: Heparin VIAL(*) 5000 UNITS/ML VIAL (FIVE THOUSAND) SUBCUT SCH ×2 (14:24→22:02)
[2018-02-24 14:52] LABS: Urine Appearance Clear; Urine Blood 2+ (Negative); Urine Color Yellow; Urine Ketones Negative (Negative); Urine Protein 1+(30 mg/dL) (Negative); Urine Red Blood Cell Trace(0-2/hpf) (Absent); Urine Specific Gravity 1.013 (1.010-1.030); Urine Urobilinogen Negative (Negative); Urine White Blood Cell Absent (Absent)
--- NOTE | 2018-02-24 15:40 | CONSULT ---
Consult Consult: Orthopedic consultation Date of consultation: 02/24/18 Date of admission: 02/24/18 Attending provider: Jesu Fraire Provider: Blanca TRAORE [facility] Nurse: Dr. Alberto Kilgore CHIEF COMPLAINT: Left foot pain, redness, and swelling. HISTORY OF PRESENT ILLNESS: Mr. El is a 72-year-old male who has a history of left foot infection that has waxed and waned since November 2017,he was [facility] [place] [facility]. His PMH also includes diabetes, coronary artery disease, hyperlipidemia and hypertension. He was sent in to the hospital for admission due to outpatient follow up with Dr Yanes, noting worsening of the left foot infection despite continued IV flagyl and ceftriaxone. Patient states that his foot worsened the day after discharge and has been erythematous ever since including the left foot and lower leg. He denies any fever or chills, he does report pain of the left foot. He requires revascularization of his LLE which was planned outpatient. At this time his renal impairment is an obstacle to attempting revascularization. PAST MEDICAL HISTORY: Hypertension, diabetes, coronary artery disease, hyperlipidemia, chronic kidney disease. PAST SURGICAL HISTORY: Includes: 1. Bilateral cataracts. 2. Coronary artery bypass graft on 11/12/17. 3. The patient is status post right total knee arthroplasty. 4. Right total shoulder replacement. 5. Status post repair of left fingers. 6. Status post cardiac cath with 3 stents placed in 2008. MEDICATIONS: Medication reconciliation underway by nursing ALLERGIES: No known drug allergies. FAMILY HISTORY: Father with [place], age 55. Two brothers with diabetes. SOCIAL HISTORY: The patient is a former smoker, quitting 30 years ago. No alcohol or drug use. His is his surrogate decision maker, Juliette El. ROS: General: Denies fever, chills HEENT: No headache or change in vision Cardiac: Denies chest pain or irregular beats. Denies history of heart attack Respiratory: Denies shortness of breath or cough. Denies history of asthma or COPD GI: Denies abdominal pain, nausea, vomiting, diarrhea Lymph: No known lymphadenopathy MSK: left foot erythematous, history of infection of 3rd digit Neuro: Denies tingling or numbness of extremities Skin: left foot erythematous Hematology: Denies history of blood clot. PHYSICAL EXAM: General: The patient is well appearing, NAD HEENT: Normocephalic, atraumatic. Pupils EOMI. Respiratory: Clear to auscultation bilaterally. Normal rate and effort of breathing. Cardiac: S1S2, no appreciable murmur ABD: BS normoactive, nontender to palpation LLE: He has erythema from mid foot distally, most concentrated on the forefoot and base of the 3rd toe, as well as an isolated area of erythema of the distal macario with no further tracking proximally. The dorsum of the third digit has a blackened necrotic dime sized lesion proximally. There is sloughing skin of the 3rd digit. There is no foul odor and there is no discharge. No obvious open lesions in the webspaces. The patient's sensation is intact to light touch throughout the left foot. The patient has good movement of his bilateral ankles and toes. Vascular: No palpable pedal pulses, I was able to identify BP and PT pulses bilaterally with dopplar ASSESSMENT: cellulitis with necrotic lesion likley osteomyelitis of left 3rd toe PLAN: I have ordered an MRI of the left foot including toes. Patient is NPO after midnight in the event that he needs to be taken to the OR tomorrow but he is not septic at this time and it would be preferred to have revascularization before any further surgical intervention if possible. Creatinine is currently elevated such that attempt for revascularization must be delayed until improvement. Dr. Cosby is aware of this patient. Patient will be seen by Dr Fraire tomorrow. Left toes should remain wrapped in gauze wrap.
[2018-02-24 16:19] LABS: INR 1.08 (0.77-1.02)
--- NOTE | 2018-02-24 16:45 | HP ---
CC: Dr. Brooks; Dr. Yanes; Dr. Batista; Dr. Fraire * HISTORY AND PHYSICAL: DATE OF ADMISSION: 02/24/18 PRIMARY CARE PROVIDER: Dr. Brooks. CONSULTING ORTHOPEDIST: Dr. Narayanan. CONSULTING INFECTIOUS DISEASE SPECIALIST: Dr. Yanes. CONSULTING POLICE CLERK: Dr. Batista. MY ATTENDING PHYSICIAN WHILE IN THE HOSPITAL: Prudence Whitman DO * (report dictated by Vito Naranjo NP). CHIEF COMPLAINT: Left third toe erythema and necrosis. HISTORY OF PRESENT ILLNESS: Mr. El is a 72-year-old male patient who has a history of hypertension, diabetes, CAD, hyperlipidemia and history of CKD, who was admitted on 02/11/18 for possible osteomyelitis/cellulitis of his third toe. He was seen in consult by Dr. Cosby, Dr. Yanes and Dr. Fraire. He was discharged for outpatient followup on long-term antibiotics and following closely with Dr. Yanes. He was seen today in Dr. Yanes's office in the outpatient setting where there was concern that his toe looked worse. There was a large area of necrosis. Also, routine labs were obtained given the long- term antibiotic therapy and it was noted that his creatinine had gone up to 5 from a discharge creatinine of 2.2. The patient says he does not take any NSAIDs, but it is noted that he was discharged on Mobic and in addition to this was also noted to be on lisinopril, which he says he has been taking. There is question if he has been taking Demadex and hydrochlorothiazide as those are on his medication list now. He denies taking ibuprofen or Motrin in addition to the Mobic. He says he has been having no difficulties with urination. He denied having any back pain or flank pain. He denied any abdominal pain. He did state that he has noted that his wound has been draining a serosanguineous type fluid at times. He denied having again any dysuria or any frequency. He denied having any vomiting or diarrhea. Again, there was a question though the patient is not really sure if he has been taking diuretics or not, but again they are on his home medication reconciliation. He was not discharged on them, but he may have certainly been restarted on those at some point on the notes to us. He again denied any chest pain or any shortness of breath. Denies having any abdominal pain. The patient again was seen by Dr. Yanes today and the patient does note that the toe looks worse. He says that the area he calls the black area has been getting a little bit bigger. He has had some little more erythema and some drainage. No fevers or chills, but he said he has been having some increasing pain there. He has not been feeling well. He was evaluated and sent here when it was found that he appeared to be in acute renal failure worsening from his discharge in addition to this worsening possible third toe infection. PAST MEDICAL HISTORY: Significant for: 1. Hypertension. 2. Diabetes. 3. CAD. 4. Hyperlipidemia. 5. CKD. PAST SURGICAL HISTORY: 1. The patient has had a heart catheterization. 2. He has had triple-vessel bypass in October of this year at [facility]. 3. Knee replacement. 4. Shoulder replacement. HOME MEDICATIONS: Again, according to list we obtained today, he is on: 1. Rocephin 2 g daily. 2. Norvasc 5 mg daily. 3. Prilosec 20 mg daily. 4. Mobic 15 mg daily. 5. Toprol-XL 25 mg daily. 6. Lacto acidophilus or Floranex 1 tablet daily. 7. Aspirin 81 mg daily. 8. Tylenol 650 mg every 4 hours as needed. 9. Tylenol With Codeine 1 to 2 tablets every 6 hours as needed. 10. Demadex 20 mg daily. We are confirming if he is still taking this. He was not discharged on it, but he was taking it with last admission. 11. Potassium 10 mEq daily. 12. Niaspan 500 mg p.o. daily. 13. Lopid 300 mg p.o. b.i.d. 14. Atorvastatin 80 mg daily. 15. Lisinopril 40 mg daily. 16. Insulin NPH sliding scale t.i.d. with meals. 17. Hydrochlorothiazide 25 mg daily. Again, we are going to confirm if he is still taking this. It was not on his discharge meds, but he may have restarted taking it. 18. Glucophage 1000 mg p.o. daily. He has not taken this since discharge and since he was here admitted in the hospital. 19. Insulin degludec 48 units subcu daily. ALLERGIES TO MEDICATIONS: No known drug allergies. FAMILY HISTORY: Mother had a history of CAD. Father had a history of SD. SOCIAL HISTORY: Former smoker, he quit over 30 years ago. He used to be a heavy drinker, but he quit that 30 years ago and has not had a drink. Surrogate decision maker is his . REVIEW OF SYSTEMS: There is no documented fever. He denies having any significant weight change. There is no double vision. He denies having any ear discharge. There is no rhinorrhea. He denies having any sore throat. There is no thyroid enlargement. He denies having any chest pain. There is no orthopnea. There is no nocturnal dyspnea. He denies having any abdominal pain. There was no nausea, no vomiting. There is no dysuria, no frequency. He denied having any seizure. There is no loss of consciousness. No pruritus and no skin ulcerations. Review of 14 systems was completed, all others negative. PHYSICAL EXAMINATION GENERAL: At this time, Mr. El is a 72-year-old male patient. He appears to be well nourished, well developed. He does not appear to be in any acute distress. VITAL SIGNS: Blood pressure 151/68, pulse 65, respirations 18, O2 sat 100%, temperature 98. HEENT: Head: Atraumatic and normocephalic. Eyes: EOMs are intact. Sclerae anicteric and not pale. Throat: Oral mucosa appears to be moist. No oropharyngeal erythema. NECK: Supple. LUNGS: Clear to auscultation bilaterally. No wheezes, rales, or rhonchi. HEART: Sounds S1, S2. He had a regular rate and rhythm. No murmurs, rubs, or gallops. ABDOMEN: Soft, flat, nontender. He does have an umbilical hernia, which is soft, flat, nontender. EXTREMITIES: Pulses were 2+ in the upper extremities. They were 1 in the lower extremities. They were just palpable within the pedal area. He has got 5 /5 strength. NEUROLOGICAL: He is awake, alert, and oriented x3. Tongue midline. Home Service Consultant were equal. He had no gross focal deficits. SKIN: Grossly intact with exception to that third great toe, he has an area of necrosis just at the base of the third great toe. There does appear to be a cracking on the skin between the third and fourth toe and there is erythema extending up from the base of the third toe up to the midfoot area. Otherwise, skin is intact. DIAGNOSTIC STUDIES/LAB DATA: Today, WBC 7.1, RBC of 3.47, hemoglobin of 12.2, hematocrit of 30, platelet count of 284. His ESR was 120 and reviewing his previous ESR was 83 previously. His sodium was 132; potassium is 6, it was 5.7 yesterday, it was 4.4 on discharge. His bicarb is 20. His BUN is 70, creatinine of 4.92; it looks like his baseline is about 1.4, it was 5.06 yesterday. His glucose is 184, phosphorus 4.9, mag 1.8. Total bili 0.3, AST 17 , ALT 23, alk phos 72. CRP was 62. Albumin of 3.2. Urine is pending and has been ordered. An EKG is pending. Old medical records were reviewed. I did review the CTA. He had a CTA on 02/11/18, which impression: Normal diameter abdominal aorta, on the right iliac and lower extremity he had 80% short segment stenosis at the right common, 70% at the right superficial femoral artery, 50% at the SFA and abductor canal, marked high-grade stenosis of the right distal popliteal artery and suggestion of limited 3-vessel runoff to the right ankle. Left iliac and lower extremity, he had 60% stenosis of the mid segment of the left superficial femoral artery. He had 50% short segment stenosis at the left popliteal and he had suggestion of limited 3-vessel runoff to the left ankle. MRI of the lower extremity showed no evidence of osteomyelitis of the second toe. He had diffuse superficial and deep tissue edema without evidence of loculated soft tissue plane abscess collection, nonspecific mild bone marrow edema at the third phalanx and differential is early osteomyelitis. Old medical records were reviewed. ASSESSMENT AND PLAN: Mr. El is a 72-year-old male patient coming in to the hospital today after being evaluated by Dr. Yanes, routine labs showing that the patient was in worsening renal failure, in addition to this there was concern for worsening infection of the third toe on the left side. We were asked to evaluate. He will be admitted under inpatient status for: 1. Osteomyelitis. At this point, I did touch base with Dr. Yanes and Orthopedics. They will be evaluating the patient. The patient may need some type of amputation. I do question he may not have good flow to the left leg given the fact that according to Dr. Cosby's last consultation and I will refer you to that for details, the patient has significant calcification and he was recommended for an outpatient angio for further evaluation. Unfortunately, this cannot happen now given the renal failure, but I do think, we will need to go ahead and put the patient on vancomycin and get Orthopedics involved, Dr. Yanes involved. He has been nonweightbearing to that left toe and they will continue to follow. He does not appear to be septic at this point. 2. Acute renal failure. Again, this is probably multifactorial. He had a contrast load on 02/11/18. In addition to this, he was noted to be on Mobic, in addition to this also lisinopril. We will be holding nephrotoxic agents. There is question if he was on Demadex and hydrochlorothiazide. I will send off urine creatinine, urine sodium. His mag and phos are back and they are stable. We will get a renal ultrasound. We will also get an echo to make sure that he does not have a severe cardiomyopathy may be causing a cardiorenal deficiency, although I do not think this was the case as he is not having any active cardiac symptoms, so we will check the echo. I am getting an EKG as well. He is mildly hyperkalemic at 6. He was on potassium supplementation, which I am holding. He is getting a dose of Kayexalate. Repeating his BMP later tonight and we also are going to go ahead and give him another dose of Kayexalate later tonight. He is on telemetry. We will be getting a renal ultrasound. His bladder scan was stable. He had 20 cc of postvoid residual. We are sending a urinalysis and Dr. Batista has been involved. 3. Hypertension. We will continue his beta-rajiv and Norvasc. Blood pressure is stable. 4. Diabetes. Currently on lispro sliding scale and also long acting insulin. 5. Coronary artery disease. He is on statin, beta-rajiv and aspirin therapy , continue. 6. Hyperlipidemia. Continue his statin therapy. 7. DVT prophylaxis: I have ordered heparin subcu. 8. Code status: Full code. 9. Fluids, electrolytes, and nutrition: I will be giving him normal saline at 125 cc an hour. We will be following with potassium and he can have a consistent carb diet. TIME SPENT: Time spent on admission was 60 minutes, greater than half the time was spent [id number] with the patient obtaining my history and physical, other half of the time was spent going over the plan of care with the patient and implementing the plan of care. I discussed the plan of care with my attending, Dr. Whitman, she is in agreement. VITO NARANJO, SYSTEMS TEST ANALYST [id number]/CPS #: [id number]
--- NOTE | 2018-02-24 17:01 | RAD ---
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 TECHNIQUE: Axial, sagittal and coronal T1 and T2-weighted images of the left foot were obtained. FINDINGS: Unless otherwise specified comparisons below reference T February 11, 2018 MRI of the foot. The visualized bones are appropriately aligned. There is worsening T2 bright signal in the soft tissues overlying the forefoot most severely a surrounding the distal third metatarsal and third digit. For example there is a focus of fluid bright signal measuring just under 1 cm immediately dorsal to the head of the third metatarsal (series 6 image 16). Of greater concern is the increased T2 signal seen at the distal head of the third metatarsal that has progressed when compared to the previous MRI of the foot (series 8 image 11 and series 6 image 15). On the corresponding T1-weighted imaging there is mild loss of normal bright medullary signal although the cortex appears to be preserved. The lesser extent there is similar T2 bright signal at the head of the second metatarsal that appears worse when compared to the previous MRI though is not as far advanced as the third metatarsal. Again seen is increased T2 signal of the proximal phalanx of the third digit though there is no dramatic loss of T1 weighted signal at the same location similar to the prior MRI of the foot. IMPRESSION: OVERALL THERE IS WORSENING APPEARANCE OF INFLAMMATORY CHANGE INVOLVING THE LEFT FOREFOOT. THE SOFT TISSUES DORSAL TO THE HEAD OF THE THIRD METATARSAL ARE MOST SEVERELY AFFECTED WHERE THERE APPEARS TO BE NOW A SMALL FLUID OR PHLEGMONOUS COLLECTION. ALSO PROGRESSED RELATIVE TO THE FEBRUARY 11, 2018 MRI OF THE FOOT IS INCREASED FLUID SIGNAL AT THE HEAD OF THE THIRD METATARSAL WITH MILD LOSS OF NORMAL T1 SIGNAL ON THE T1-WEIGHTED IMAGING. ALTHOUGH THE CORTEX APPEARS TO BE PRESERVED THIS APPEARANCE COULD BE CONSISTENT WITH OSTEOMYELITIS. REACTIVE CHANGE OF BONE NEIGHBORING A SOFT TISSUE INFECTION IS ALSO CONSIDERED ON THE DIFFERENTIAL.
[2018-02-24] MEDS: Insulin LISPRO* 1 UNITS UNIT SUBCUT SCH (17:36)
--- NOTE | 2018-02-24 17:47 | ECHO ---
Patient: ABDIFATAH AYERS [facility] Rec#: [id number] : 1945 Date: 02/24/2018 Age: 72y Height: 185.42 cm / 73.0 in Weight: 115.21 kg / 253.9 lbs Sex: M BSA: 2.38 Room#: [facility] Admit Date#: 02/24/2018 Type: Inpatient Referring: Vito Naranjo NP Reading: Hamzah Perla DO Room Inspector: Martha Aaron RDCS CC: Priya Brooks MD Transthoracic Echocardiogram Indication: CHF BP: 151/68 HR: 58 Rhythm: Bradycardia Findings History: HTN, DM, CAD s/p CABG 11/12/17, CKD, former smoker. Technical Comments: The study is technically limited due to patient body habitus. Left Ventricle: The left ventricular chamber size is normal. Mild to moderate concentric left ventricular hypertrophy is observed. Global left ventricular wall motion and contractility are within normal limits. There is normal left ventricular systolic function. The estimated ejection fraction is 60-65%. Post surgical hypokinesis of the interventricular septum is observed consistent with coronary artery bypass. Abnormal left ventricular diastolic function is observed. Left Atrium: The left atrium is mild to moderately dilated. Right Ventricle: The right ventricular chamber size and systolic function are within normal limits. Right Atrium: The right atrium is mildly dilated. Aortic Valve: The aortic valve is trileaflet. The aortic valve leaflets are mildly thickened. There is evidence of aortic sclerosis without stenosis. There is a trace of aortic regurgitation. There is no evidence of aortic stenosis. Mitral Valve: Mild mitral annular calcification present. The mitral valve leaflets are mildly thickened. There is mild mitral regurgitation. There is no evidence of mitral stenosis. Tricuspid Valve: The tricuspid valve leaflets are normal. There is mild tricuspid regurgitation. There is evidence of borderline pulmonary hypertension. There is no tricuspid stenosis. Pulmonic Valve: The pulmonic valve appears normal. There is trace to mild pulmonic regurgitation. There is no pulmonic stenosis. Pericardium: There is no significant pericardial effusion. Aorta: There is no dilatation of the ascending aorta. There is no dilatation of the aortic arch. The aortic root is normal in size. Pulmonary Artery: The main pulmonary artery is not well visualized. Venous: The inferior vena cava appears normal in size. There is a greater than 50% respiratory change in the inferior vena cava dimension. Contrast: Definity was used to optimize study. 3 mL of diluted Definity was utilized. Intravenous contrast was used to enhance endocardial border definition. Conclusions The left ventricular chamber size is normal. Mild to moderate concentric left ventricular hypertrophy is observed. There is normal left ventricular systolic function. The estimated ejection fraction is 60-65%. The left atrium is mild to moderately dilated. The right ventricular chamber size and systolic function are within normal limits. No functionally significant valvular abnormalities noted Definity used to optimize study. Small highly mobile echodensity 1 cm noted near junction of aortic arch and descending aorta. If there is no foreign body or surgical graft in that area this is likely due to mobile atherosclerotic plaque. Results discussed with Dr. Whitman. Measurements Name Value Normal Range RVIDd (AP) 2D 4.1 cm (0.9 - 2.6) RVDdMajor (2D) 5.8 cm (2.2 - 4.4) RVAW (2D) 0.5 cm (0.2 - 0.5) IVSd (2D) 1.5 cm (0.6 - 1) LVPWd (2D) 1.3 cm (0.6 - 1) LVIDd (2D) 4.9 cm (3.6 - 5.4) LVIDs (2D) 4 cm - LV FS (2D) 18 % (25 - 45) EF Teichholz (2D) 37 % - Aortic Annulus 2.1 cm (1.4 - 2.6) Ao root diameter (2D) 3.4 cm (2.1 - 3.5) Ascending Ao 3.3 cm (2.1 - 3.4) Aortic arch 2.3 cm (1.8 - 3.4) LA dimension (AP) 2D 5 cm (2.3 - 3.8) LAd ISD 4CH 5.6 cm (2.9 - 5.3) LA ISD 4CH W 5.1 cm (2.5 - 4.5) Name Value Normal Range LA ESV SP 4CH (A/L) 144 ml - LA ESV SP 2CH (A/L) 72 ml - LA ESV BP (A/L) 105 ml - LA ESV BP (A/L) index 44 ml/m2 - LA ESV SP 4CH (MOD) 136 ml - LA ESV SP 2CH (MOD) 67 ml - Name Value Normal Range MV E-wave Vmax 0.96 m/sec - MV deceleration time 223.3 msec - MV A-wave Vmax 0.82 m/sec - MV E:A ratio 1.17 ratio - LV septal e' Vmax 0.05 m/sec - LV lateral e' Vmax 0.08 m/sec - LV E:e' septal ratio 19.2 ratio - LV E:e' lateral ratio 12 ratio - Name Value Normal Range AV Vmax 1.05 m/sec - AV VTI 25.9 cm - AV peak gradient 4.42 mmHg - AV mean gradient 2.14 mmHg - LVOT diameter 2.01 cm - LVOT Vmax 0.89 m/sec - LVOT VTI 24.03 cm - LVOT peak gradient 3.16 mmHg - LVOT mean gradient 1.84 mmHg - CHRISTOFER Vmax 0.94 m/sec - Name Value Normal Range TR Vmax 2.8 m/sec - TR peak gradient 31 mmHg - RAP 3 mmHg - RVSP 34 mmHg - IVC diameter 2 cm - Name Value Normal Range PV Vmax 1.11 m/sec - PV peak gradient 5.01 mmHg - VA end-diastolic Vmax 1.54 m/sec -
[2018-02-24] MEDS: Clopidogrel TAB* 75 MG PO SCH (18:59)
--- NOTE | 2018-02-24 20:03 | RAD ---
INDICATION: Acute renal failure COMPARISON: CTA of the abdomen and pelvis dated February 11, 2018 TECHNIQUE: Real-time ultrasound examination of the bilateral kidneys and urinary bladder including grayscale and Doppler color flow analysis. FINDINGS: Right kidney measures 11.6 x 6.8 x 6.2 cm. The left kidney measures 13.9 x 7.1 x 7.0 cm. Along the lower pole of the left kidney is an avascular and anechoic structure measuring 4.7 x 3.1 x 4.6 cm. There are echogenic partially shadowing foci in the periphery. There is a mild degree of left-sided hydronephrosis. Overall there is increased echogenicity of the renal cortices bilaterally. The urinary bladder is incompletely distended but there is no definite asymmetric or focal bladder wall thickening. The urinary bladder measures 66.9 mm. A normal right ureteral jet was recorded. A left ureteral jet was not recorded. The prostate measures 4.1 x 5.1 x 5.8 cm yielding an approximate volume of 62 mL. IMPRESSION: 1. Mild left-sided hydronephrosis and absence of left ureteral jet. 2. Increased echogenicity of the renal cortices could be seen in the setting of medical renal disease.
[2018-02-24 21:51] LABS: EGFR Non-African American 12.6 (>60)
[2018-02-24] MEDS: Gemfibrozil TAB* 600 MG PO SCH (21:57)
[2018-02-24] MEDS: Acetaminop/Codeine 30 MG TAB* 1 TAB (300 MG/30 MG) PO PRN (23:29)
[2018-02-25] MEDS ORDERED: Vancomycin Random Level* NOTE FOLLOW UP ONE (06:00)
[2018-02-25] MEDS: NS 0.9% 1000 ML* 1,000 ML IV SCH ×2 (06:08→17:23)
[2018-02-25] MEDS: Heparin VIAL(*) 5000 UNITS/ML VIAL (FIVE THOUSAND) SUBCUT SCH ×3 (06:10→20:27)
[2018-02-25 07:47] LABS: ABS Basophils 0.1 10^3/ul (0-0.2); ABS Eosinophils 0.3 10^3/ul (0-0.6); ABS Lymphocytes 0.7 10^3/ul (1.0-4.8); ABS Monocytes 0.6 10^3/ul (0-0.8); ABS Neutrophils 6.3 10^3/ul (1.5-7.7); ABS Nucleated RBC 0 10^3/ul; Hematocrit 31 % (42-52); Hemoglobin 10.5 g/dl (14.0-18.0); Lymphocyte % 8.5 % (25-47); Mean Corpuscular HGB Conc 34 g/dl (31-36); Mean Corpuscular Hemoglobin 29 pg (27-31); Mean Corpuscular Volume 87 fL (80-94); Mean Platelet Volume 7.2 um3 (7.4-10.4); Nucleated Red Blood Cells % 0; Platelet Count 273 10^3/ul (150-450); Red Blood Count 3.56 10^6/ul (4.00-5.40); Red Cell Distribution Width 15 % (10.5-15)
[2018-02-25 07:53] LABS: INR 1.13 (0.77-1.02)
[2018-02-25 08:25] LABS: EGFR Non-African American 13.6 (>60)
[2018-02-25] MEDS ORDERED: amLODIPine TAB* 5 MG PO SCH (09:00)
[2018-02-25] MEDS: Insulin GLARGINE(*) 1 UNITS UNIT SUBCUT SCH (09:10)
[2018-02-25] MEDS: Insulin LISPRO* 1 UNITS UNIT SUBCUT SCH ×3 (09:10→17:23)
[2018-02-25] MEDS: Atorvastatin* 80 MG TAB PO SCH (09:10)
[2018-02-25] MEDS: Metoprolol Succinate XL TAB* 25 MG PO SCH (09:10)
[2018-02-25] MEDS: CMCS: Pantoprazole TAB (NF) 40 MG TAB PO SCH (09:11)
[2018-02-25] MEDS: Aspirin EC TAB* 81 MG TAB.EC PO SCH (09:11)
[2018-02-25] MEDS ORDERED: Sodium Polystyrene ORAL.SOL* 15 GM/60 ML BTL PO ONE (09:30)
[2018-02-25] MEDS ORDERED: Vancomycin 1500 MG IV - x ONCE IVPB ONE ×2 (10:00)
[2018-02-25] MEDS: Gemfibrozil TAB* 600 MG PO SCH ×2 (10:17→20:28)
--- NOTE | 2018-02-25 11:12 | PN ---
Subjective Date of Service: 02/25/18 Interval History: CC: My left foot is sore. Pt examined today at the bedside. He states that his left foot is sore but is feeling better than yesterday. He denies chest pain or sob. Denies fever or chills. States he is hungry. ROS- denies fever, denies chills, denies chest pain, denies abdominal pain, denies nausea, denies vomiting, denies lightheadedness, denies sob, denies dysuria, review of 11 systems completed all others negative, Objective Active Medications: Acetaminophen (Tylenol Tab*) 650 mg PO Q4H PRN PRN Reason: PAIN Acetaminophen/Codeine Phosphate (Tylenol/Codeine 30 Mg Tab*) 1 tab PO Q6H PRN PRN Reason: PAIN Last Admin: 02/24/18 23:29 Dose: 1 tab Amlodipine Besylate (Norvasc Tab*) 5 mg PO DAILY [facility] Last Admin: 02/25/18 09:11 Dose: 5 mg Aspirin (Aspirin Ec Tab*) 81 mg PO DAILY [facility] Last Admin: 02/25/18 09:11 Dose: Not Given Atorvastatin Calcium (Lipitor*) 80 mg PO DAILY [facility] Last Admin: 02/25/18 09:10 Dose: 80 mg Clopidogrel Bisulfate (Plavix Tab*) 75 mg PO 1845 [facility] Last Admin: 02/24/18 18:59 Dose: 75 mg Dextrose (D50w Syringe 50 Ml*) 12.5 gm IV PUSH .FOR FS < 60 - SS PRN PRN Reason: FS < 60 Gemfibrozil (Lopid Tab*) 300 mg PO BID [facility] Last Admin: 02/25/18 10:17 Dose: 300 mg Heparin Sodium (Porcine) (Heparin Vial(*)) 5,000 units SUBCUT Q8HR [facility] Last Admin: 02/25/18 06:10 Dose: 5,000 units Sodium Chloride (Ns 0.9% 1000 Ml*) 1,000 mls @ 125 mls/hr IV PER RATE [facility] Last Admin: 02/25/18 06:08 Dose: 125 mls/hr Vancomycin HCl 1,500 mg/ (Sodium Chloride) 250 mls @ 166.667 mls/hr IVPB ONCE ONE Stop: 02/25/18 11:29 Last Admin: 02/25/18 10:18 Dose: 166.667 mls/hr Insulin Glargine (Lantus(*)) 48 units SUBCUT DAILY [facility] Last Admin: 02/25/18 09:10 Dose: 48 units Insulin Human Lispro (Humalog*) 0 units SUBCUT AC [facility]; Protocol Last Admin: 02/25/18 09:10 Dose: 3 units Metoprolol Succinate (Toprol Xl Tab*) 25 mg PO DAILY [facility] Last Admin: 02/25/18 09:10 Dose: 25 mg Ondansetron HCl (Zofran Inj*) 4 mg IV Q6H PRN PRN Reason: NAUSEA Pantoprazole Sodium (Protonix Tab (Nf)) 40 mg PO DAILY [facility] Last Admin: 02/25/18 09:11 Dose: 40 mg Pharmacy Consult (Vancomycin Per Pharmacy*) 1 note FOLLOW UP . PRN PRN Reason: PER PROTOCOL Pharmacy Consult (Vancomycin Random Level*) 1 note FOLLOW UP ONCE ONE Stop: 02/26/18 06:01 Vital Signs - 8 hr 02/25/18 02/25/18 02/25/18 04:00 07:36 07:52 Temperature 99.2 F 98.3 F Pulse Rate 66 71 Respiratory 16 26 26 Rate Blood Pressure 157/67 176/74 (mmHg) O2 Sat by Pulse 96 97 97 Oximetry Oxygen Devices in Use Now: None Appearance: 72 y/o male patient NAD, sitting in bed, Eyes: No Scleral Icterus, PERRLA Ears/Nose/Mouth/Throat: NL Teeth, Lips, Gums Neck: NL Appearance and Movements; NL JVP Respiratory: Symmetrical Chest Expansion and Respiratory Effort, Clear to Auscultation Cardiovascular: NL Sounds; No Murmurs; No JVD Abdominal: NL Sounds; No Tenderness; No Distention, - - umbilical hernia Extremities: No Edema Skin: No Rash or Ulcers, - - eschar tissue noted to left third toe, mild errythemia to base of toe, improved since yesterday Neurological: Alert and Oriented x 3 Lines/Tubes/Other Access: Clean, Dry and Intact Peripheral IV Result Diagrams: 02/25/18 07:34 02/25/18 07:34 Assess/Plan/Problems-Billing Assessment: 72 y/o male patient presenting to [facility] – [place] with complaints of worsening renal failure and worsening left third toe infection - Patient Problems (1) DVT prophylaxis Current Visit: Yes Status: Acute Priority: High Comment: SQ heparin (2) Full code status Current Visit: Yes Status: Acute Priority: High (3) HTN (hypertension) Current Visit: Yes Status: Chronic Priority: High Comment: norvasc only hold uriah and hctz given arf, will incrase norvasc to 10 mg, bp this am 179 systolic, (4) Type 2 diabetes mellitus Current Visit: Yes Status: Chronic Priority: High Comment: Continue lispro and lantus for now hold oral agents (5) Anemia Current Visit: Yes Status: Acute Priority: High Comment: h and h stable follow with pcp (6) Osteomyelitis Current Visit: Yes Status: Acute Priority: High Comment: Ortho and ID following, plan now is to try to omptimize kidney function and pursue angio as patient is stable, no signs of sepsis and wound looks better today, if creatitine improves to baseline would pursue angio than proceed to possible amputation, (7) ARF (acute renal failure) Current Visit: Yes Status: Acute Priority: High Comment: creatitine today 4.3 fena 1.8 suspect cause is multifactorial patient was on hctz uriah inhibitor and nsaid in setting of DM and infection, creatitine improving today Dr womack following, K 6 today will give kayexalate today on tele, PVR 60 will continue ivf and follow once creatitne back to baseline consider angio of LLE (8) Hydronephrosis Current Visit: Yes Status: Acute Priority: High Comment: mild hydro to left kidney noted on u/s patient with no obstructive symptoms. Will ordered ct abd pleivs non contrast to assess for stone given ARF, if stone will formally consult urology (9) Atherosclerotic plaque Current Visit: Yes Status: Acute Priority: High Comment: Noted small plaque on echo yesterday plan for plavix asa statin will touch base with cardiology for recommendatoins, patient educated about potential complications associated with this plaque, blood cultures sent as well Status and Disposition: Await creatinine stabilization, consider angio, conitune iv abx, await blood cx , ct scan pending for hydro,
[2018-02-25] MEDS: Acetaminop/Codeine 30 MG TAB* 1 TAB (300 MG/30 MG) PO PRN ×2 (11:30→17:32)
--- NOTE | 2018-02-25 13:11 | PN ---
Progress Note - Progress Note Date of Service: 02/25/18 SOAP: Subjective: [] Patient was seen at bedside. He feels the erythema of the left foot has improved. Objective: []General: Well appearing, NAD LLE: Erythema and edema of left foot is much improved today, with mild to moderate erythema of dorsum of forefoot and 3rd digit remaining. Necrotic area on dorsal aspect of proximal 3rd digit remains. No foul odor or discharge. Erythema of lower leg has almost entirely resolved. Assessment: []Necrosis/ osteo L third toe Plan: []May resume carb consistent diet, will not be taken to the OR today If possible requires revascularization prior to any amputation. Await improvement of renal function to move forward. Will continue to follow and will likely require amputation of the left third digit. This can wait until revascularized in absence of worsening/ systemic infection Vital Signs Temp 98.4 F 02/25/18 11:18 Pulse 65 02/25/18 11:18 Resp 22 02/25/18 11:30 BP 169/68 02/25/18 11:18 Pulse Ox 97 02/25/18 11:18 Intake & Output 02/24/18 02/25/18 02/25/18 18:59 06:59 18:59 Intake Total 1810 2638 Output Total 0 530 Balance 1810 2108 Weight 254 lb Intake: IV Fluids 890 1330 ABX - VANCOMYCIN 290 309 NS (0.9%) 600 1021 IVPB 948 NS (0.9%) 948 Oral 920 360 Output: Urine 0 530 Other: Estimated Void Large # Bowel Movements 0 # Voids 1 Laboratory Last Values WBC 8.0 10^3/ul (3.5-10.8) 02/25/18 07:34 RBC 3.56 10^6/ul (4.00-5.40) L 02/25/18 07:34 Hgb 10.5 g/dl (14.0-18.0) L 02/25/18 07:34 Hct 31 % (42-52) L 02/25/18 07:34 MCV 87 fL (80-94) 02/25/18 07:34 MCH 29 pg (27-31) 02/25/18 07:34 MCHC 34 g/dl (31-36) 02/25/18 07:34 RDW 15 % (10.5-15) 02/25/18 07:34 Plt Count 273 10^3/ul (150-450) 02/25/18 07:34 MPV 7.2 um3 (7.4-10.4) L 02/25/18 07:34 Neut % (Auto) 78.7 % (38-83) 02/25/18 07:34 Lymph % (Auto) 8.5 % (25-47) L 02/25/18 07:34 [place] % (Auto) 7.5 % (0-7) H 02/25/18 07:34 Eos % (Auto) 4.0 % (0-6) 02/25/18 07:34 Baso % (Auto) 1.3 % (0-2) 02/25/18 07:34 Absolute Neuts (auto) 6.3 10^3/ul (1.5-7.7) 02/25/18 07:34 Absolute Lymphs (auto) 0.7 10^3/ul (1.0-4.8) L 02/25/18 07:34 Absolute Monos (auto) 0.6 10^3/ul (0-0.8) 02/25/18 07:34 Absolute Eos (auto) 0.3 10^3/ul (0-0.6) 02/25/18 07:34 Absolute Basos (auto) 0.1 10^3/ul (0-0.2) 02/25/18 07:34 Absolute Nucleated RBC 0 10^3/ul 02/25/18 07:34 Nucleated RBC % 0 02/25/18 07:34 ESR 120 mm/Hr (0-40) H 02/24/18 11:21 Eosinophil Smear None seen 02/24/18 13:15 INR (Anticoag Therapy) 1.13 (0.77-1.02) H 02/25/18 07:34 APTT 25.2 seconds (26.0-36.3) L 02/24/18 15:26 Sodium 137 mmol/L (135-145) 02/25/18 07:34 Potassium 6.0 mmol/L (3.5-5.0) H 02/25/18 07:34 Chloride 107 mmol/L (101-111) 02/25/18 07:34 Carbon Dioxide 23 mmol/L (22-32) 02/25/18 07:34 Anion Gap 7 mmol/L (2-11) 02/25/18 07:34 BUN 60 mg/dL (6-24) H 02/25/18 07:34 Creatinine 4.31 mg/dL (0.67-1.17) H 02/25/18 07:34 Est GFR ( Amer) 16.4 (>60) 02/25/18 07:34 Est GFR (Non-Af Amer) 13.6 (>60) 02/25/18 07:34 BUN/Creatinine Ratio 13.9 (8-20) 02/25/18 07:34 Glucose 178 mg/dL (70-100) H 02/25/18 07:34 POC Glucose (mg/dL) 252 mg/dL (70-100) H 02/24/18 17:06 Calcium 8.5 mg/dL (8.6-10.3) L 02/25/18 07:34 Phosphorus 4.9 mg/dL (2.5-5.0) 02/24/18 11:21 Magnesium 1.8 mg/dL (1.9-2.7) L 02/24/18 11:21 Total Bilirubin 0.30 mg/dL (0.2-1.0) 02/24/18 11:21 AST 17 U/L (13-39) 02/24/18 11:21 ALT 23 U/L (7-52) 02/24/18 11:21 Alkaline Phosphatase 72 U/L (34-104) 02/24/18 11:21 C-Reactive Protein 62.26 mg/L (<8.01) H 02/24/18 11:21 Total Protein 6.4 g/dL (6.4-8.9) 02/24/18 11:21 Albumin 3.2 g/dL (3.2-5.2) 02/24/18 11:21 Globulin 3.2 g/dL (2-4) 02/24/18 11:21 Albumin/Globulin Ratio 1.0 (1-3) 02/24/18 11:21 Urine Color Yellow 02/24/18 13:15 Urine Appearance Clear 02/24/18 13:15 Urine pH 5.0 (5-9) 02/24/18 13:15 Ur Specific [place] 1.013 (1.010-1.030) 02/24/18 13:15 Urine Protein 1+(30 mg/dl) (Negative) A 02/24/18 13:15 Urine Ketones Negative (Negative) 02/24/18 13:15 Urine Blood 2+ (Negative) A 02/24/18 13:15 Urine Nitrate Negative (Negative) 02/24/18 13:15 Urine Bilirubin Negative (Negative) 02/24/18 13:15 Urine Urobilinogen Negative (Negative) 02/24/18 13:15 Ur Leukocyte Esterase Negative (Negative) 02/24/18 13:15 Urine WBC (Auto) Absent (Absent) 02/24/18 13:15 Urine RBC (Auto) Trace(0-2/hpf) (Absent) 02/24/18 13:15 Ur Squamous Epith Cells Present (Absent) A 02/24/18 13:15 Urine Bacteria Absent (Absent) 02/24/18 13:15 Ur Random Creatinine 127.34 mg/dL 02/24/18 13:15 Ur Random Sodium 61 mmol/L 02/24/18 13:15 Urine Glucose 1+(50 mg/dl) (Negative) A 02/24/18 13:15 Random Vancomycin 15.6 mcg/mL 02/25/18 07:34
--- NOTE | 2018-02-25 13:44 | RAD ---
Indication: Left hydronephrosis on ultrasound. CT of the abdomen and pelvis was performed without oral or IV contrast administration. Coronal and sagittal reconstructed images were obtained. Comparison is made with previous exam dated February 11, 2018. The lung bases demonstrate small pleural effusions. Lung bases demonstrate no atelectasis. Heart demonstrates no pericardial effusion. The liver is normal in size. No focal lesions or intrahepatic duct dilatation is noted. The spleen is normal in size. The gallbladder demonstrates no calcified gallstones. Common duct is not dilated. The pancreas demonstrates no mass or pancreatic duct dilatation. No dilated loops of bowel are noted. There is moderate degree of left hydronephrosis and hydroureter. There is a calculus in the left distal ureter at the distal ureter measuring 4 mm. This is approximately 5 cm proximal to the left ureterovesicular junction. The right kidney demonstrates no hydronephrosis. The urinary bladder demonstrates diffuse wall thickening of the urinary bladder. CT of the pelvis demonstrates no retroperitoneal or pelvic lymphadenopathy. No dilated loops of bowel are noted. No evidence of aneurysmal dilatation of the abdominal aorta is noted. The prostate is enlarged. IMPRESSION: 1. There is a 4 mm calculus in the distal left ureter with mild degree of left hydronephrosis and hydroureter. Bilateral renal calculi is noted. 2. Atherosclerotic aorta without evidence of aneurysmal dilatation.
--- NOTE | 2018-02-25 13:56 | PN ---
Hospitalist Progress Note Date of Service: 02/25/[address] finding of small stone in left ureter. Urology to see. Patient with no flank pain or symptoms of obstruction. Plan to have urology eval and re- eval bladder us in am to assess for a jet. Consider possible or in am for stent if no jet.
--- NOTE | 2018-02-25 14:10 | CONS ---
CONSULTATION REPORT: DATE OF CONSULT: 02/25/18 REQUESTING PROVIDER: Vito Naranjo NP CONSULTING SERVICE: Infectious Disease. REASON FOR CONSULT: Left foot infection. IMPRESSION: 1. Acute osteomyelitis of the left third toe and third metatarsal head. He had been on IV antibiotics for now. The patient had worsening erythema and fibrinous slough and drainage from the chronic non-pressure related wound of the third toe. Here, the erythema is much improved. I think that may partially be due to keeping his leg elevated the whole time he has been here. The antibiotic change may have helped improve it as well. He was on ceftriaxone as an outpatient, now on vancomycin. 2. Acute kidney injury with hyperkalemia, could be multifactorial including the ongoing infection about 10 days of IV beta-lactam, which is associated with interstitial nephritis and a recent dye load about 2 weeks ago, so could be contrast induced. He does on a renal ultrasound have mild left-sided hydronephrosis and absence of the left ureteral jet. No stones identified there. 3. Diabetes with neuropathy and chronic kidney disease. 4. Obesity. 5. Peripheral vascular disease with calcification of [id number] artery seen on CTA with runoff from 02/11/18. RECOMMENDATION: We will continue with vancomycin goal trough 15 to 20. Orthopedics is going to evaluate him. I discussed the case with Dr. Cosby, who asked that we obtain an arterial duplex, which I ordered. We will ask Urology to evaluate his left-sided hydronephrosis. HISTORY OF PRESENT ILLNESS: This is a 72-year-old diabetic male with left foot infection, admitted from my office with worsening left foot infection and acute kidney injury. He had been in the hospital about 2 weeks before with left third toe cellulitis spreading up into his left foot. He had improved on antibiotics in the hospital and was discharged on ceftriaxone. He had had the CTA to evaluate his lower extremity while he was here. At home, he felt okay, was urinating fine, did not feel lightheaded. He had no fevers, chills, or sweats. He did feel that the left foot was getting worse including more red and swollen. I saw him in my office yesterday, did appear more red and swollen , and ulcer looked like there was more drainage, and his creatinine the night before came back at 5, so he was directly admitted. Vito Naranjo NP, saw him , started him on vancomycin, obtained the ultrasound of the bladder and kidneys with the results as above. He had a transthoracic echocardiogram, which showed ejection fraction of 60% to 65%. This morning, the foot was painful. He thinks the redness is better. He has been in bed the entire time he has been here. At home, he does note that he had been up and around on his feet, but otherwise was paying close attention to his foot and taking good care of it. PAST MEDICAL HISTORY: 1. Insulin-dependent diabetes, complicated by peripheral neuropathy and chronic kidney disease. 2. Peripheral arterial disease. 3. Hypertension. 4. Coronary artery disease, status post coronary artery bypass, October 2017. 5. Status post knee arthroplasty. 6. Status post shoulder arthroplasty, both asymptomatic. MEDICATIONS: 1. Tylenol. 2. Amlodipine. 3. Aspirin. 4. Lipitor. 5. Plavix. 6. Gemfibrozil. 7. Heparin subcutaneous injection. 8. Insulin glargine. 9. Metoprolol. 10. Zofran. 11. Pantoprazole. 12. Vancomycin. 13. mg given once yesterday. ALLERGIES: No known drug allergies. FAMILY HISTORY: No recurrent infections or tuberculosis. SOCIAL HISTORY: Lives in [place]. Still working in [place] [employer]. No travel. REVIEW OF SYSTEMS: All negative except as noted above in the history of present illness. PHYSICAL EXAM: Vital Signs: Temperature is 37, heart rate 70, respiratory rate 25, blood pressure 176/74, oxygen saturation 97% on room air. In general, he is awake, not in distress. Neurologic: He is oriented x3. Follows all commands. He has decreased sensation to light touch in both feet. HEENT: There is no thrush. Neck is supple without mass. Heart has regular rate and rhythm without murmurs, rubs, or gallops. Lungs are clear to auscultation bilaterally. Abdomen is soft, nontender, nondistended. There are bowel sounds present. Skin: There is no rash or splinter hemorrhage. Musculoskeletal: There is no spine tenderness to palpation or knee synovitis. On the left foot, there is mild edema. There is erythema in the forefoot up into the third toe with 1.5-cm linear eschar on the dorsal surface of the third toe. There is no crepitus or fluctuance or tenderness to palpation. LABORATORY DATA: White blood cell count 8, hemoglobin 10, MCV 87. Creatinine is 4.3. CRP 62. Urinalysis shows blood. Vancomycin level is 15 this morning. Please see impressions and recommendations as outlined above. Thanks for asking me to see Nikko in consultation. [id number]/[facility] #: [id number] MTDD
--- NOTE | 2018-02-25 14:28 | RAD ---
INDICATION: Worsening left forefoot wound with possible osteomyelitis. COMPARISON: CTA abdominal aorta with runoff dated February 11, 2018. The patient has advanced calcified atherosclerosis which limits evaluation of much of the vasculature, particularly the infrapopliteal arteries. TECHNIQUE: White scale, color Doppler, and spectral analysis utilized to image the left lower extremity arteries. Flow velocities were determined at each visualized artery. REPORT: Overall there is in-line flow recorded from the common femoral artery as far as the distal posterior tibial artery and dorsalis pedis artery. At the proximal/mid left superficial femoral artery there is coarse atherosclerotic calcification including a mobile focus of calcium that appears to be "flapping" during systole. Elevated velocities are recorded at the superficial femoral artery proximally measuring as high as 299 cm/s. More inferiorly there is mild elevation at the proximal posterior tibial artery of 105 cm/s and the mid-level anterior tibial artery at 97 cm/s. Coarse calcification is documented throughout much of the arterial vasculature. IMPRESSION: As was documented on the prior CTA there is diffuse and coarsely calcified vasculopathy and all arteries of the left lower extremity. Elevated velocities at the proximal and mid superficial femoral artery correlate to approximately 50% degree stenosis. Foci of increased velocity at the posterior tibial and anterior tibial arteries indicate stenoses in these vessels as well although in-line flow is documented as far as the mid foot dorsalis pedis artery. Mean Arterial diameter and Peak Systolic Flow Velocities Artery Diameter SD (cm) Velocity SD (cm/sec) Ext. Iliac 0.79 +/- 0.13 119.3 +/- 21.7 Common Femoral 0.82 +/- 0.14 114.1 +/- 24.9 Superficial Femoral (Prox.) 0.60 +/- 0.12 90.8 +/- 13.6 Superficial Femoral (Dist.) 0.54 +/- 0.11 93.6 +/- 14.1 Popliteal 0.52 +/- 0.11 68.8 +/- 13.5 Adapted from [employer] Introduction to Vascular Sonography 5th ed. Diagnostic Criteria Femoral Popliteal Segment Stenosis Peak Velocity Velocity Ratio Normal < 150 cm/sec < 1.5:1 30%-49% 150 -200 cm/sec 1.5:1 ? 2:1 50%-75% 200 ? 400 cm/sec 2:1 ? 4::1 Occlusion No color saturation Adapted from Isa DV, Bartolome JE, et al.
--- NOTE | 2018-02-25 16:49 | PN ---
Progress Note - Progress Note Date of Service: 02/25/18 Note: I saw Rickie this morning. He was admitted yesterday with worsening erythema as well as acute kidney insufficiency. He was switched to IV vancomycin and the erythema has improved. He thinks it is looking better today. On exam, there is some mild erythema of the left third toe. The dorsum of the toe has some necrotic skin. There is no tracking of erythema proximally. No significant tenderness about the toe. No pulses are palpable. I discussed with him that I think he may end up needing a toe amputation, but I would like to restore some blood flow to the foot prior to this. This would help with clearing the infection and hopefully healing any surgery. Additionally, he needs improved kidney function for revascularization. If the infection worsened, we may have to amputate the toe, but otherwise, I would prefer to have him revascularized first. He understood and was in agreement with this plan. All of his questions were answered. Jesu Fraire MD
[2018-02-25] MEDS: Clopidogrel TAB* 75 MG PO SCH (17:23)
[2018-02-25 20:10] LABS: EGFR Non-African American 14.8 (>60)
[2018-02-26] MEDS: NS 0.9% 1000 ML* 1,000 ML IV SCH (01:40)
[2018-02-26] MEDS ORDERED: Morphine INJ* 2 MG/ML 1 ML SYRINGE (TWO MG - NEW SYRINGE VERSION) IV PRN (05:17)
[2018-02-26] MEDS: Heparin VIAL(*) 5000 UNITS/ML VIAL (FIVE THOUSAND) SUBCUT SCH ×3 (05:27→21:02)
[2018-02-26] MEDS: Vancomycin Random Level* NOTE FOLLOW UP ONE ×2 (05:53→06:22)
[2018-02-26 06:18] LABS: ABS Basophils 0.1 10^3/ul (0-0.2); ABS Eosinophils 0.2 10^3/ul (0-0.6); ABS Lymphocytes 0.6 10^3/ul (1.0-4.8); ABS Monocytes 0.6 10^3/ul (0-0.8); ABS Neutrophils 7.4 10^3/ul (1.5-7.7); ABS Nucleated RBC 0 10^3/ul; Eosinophil % 2.4 % (0-6); Hematocrit 30 % (42-52); Hemoglobin 10.2 g/dl (14.0-18.0); Lymphocyte % 6.9 % (25-47); Mean Corpuscular HGB Conc 34 g/dl (31-36); Mean Corpuscular Hemoglobin 30 pg (27-31); Mean Corpuscular Volume 86 fL (80-94); Mean Platelet Volume 7.1 um3 (7.4-10.4); Nucleated Red Blood Cells % 0; Platelet Count 280 10^3/ul (150-450); Red Blood Count 3.46 10^6/ul (4.00-5.40); Red Cell Distribution Width 15 % (10.5-15); White Blood Count 8.9 10^3/ul (3.5-10.8)
[2018-02-26] MEDS: Metoprolol Succinate XL TAB* 25 MG PO SCH (08:00)
[2018-02-26] MEDS: amLODIPine TAB* 5 MG PO SCH (08:00)
--- NOTE | 2018-02-26 08:01 | PN ---
Subjective Date of Service: 02/26/18 Interval History: Mr. El is frustrated by his ongoing illness but denies other complaint including chest pain, SOB, nausea, or abdominal pain. Objective Active Medications: Acetaminophen (Tylenol Tab*) 650 mg PO Q4H PRN Acetaminophen/Codeine Phosphate (Tylenol/Codeine 30 Mg Tab*) 1 tab PO Q6H PRN Amlodipine Besylate (Norvasc Tab*) 10 mg PO DAILY [facility] Aspirin (Aspirin Ec Tab*) 81 mg PO DAILY [facility] Atorvastatin Calcium (Lipitor*) 80 mg PO DAILY [facility] Clopidogrel Bisulfate (Plavix Tab*) 75 mg PO 1845 [facility] Dextrose (D50w Syringe 50 Ml*) 12.5 gm IV PUSH .FOR FS < 60 - SS PRN Gemfibrozil (Lopid Tab*) 300 mg PO BID [facility] Heparin Sodium (Porcine) (Heparin Vial(*)) 5,000 units SUBCUT Q8HR [facility] Sodium Chloride (Ns 0.9% 1000 Ml*) 1,000 mls @ 125 mls/hr IV PER RATE [facility] Insulin Glargine (Lantus(*)) 48 units SUBCUT DAILY [facility] Insulin Human Lispro (Humalog*) 0 units SUBCUT AC [facility]; Protocol Metoprolol Succinate (Toprol Xl Tab*) 25 mg PO DAILY [facility] Morphine Sulfate (Morphine Inj ((Syringe))*) 2 mg IV Q4H PRN Ondansetron HCl (Zofran Inj*) 4 mg IV Q6H PRN Pantoprazole Sodium (Protonix Tab (Nf)) 40 mg PO DAILY [facility] Pharmacy Consult (Vancomycin Per Pharmacy*) 1 note FOLLOW UP . PRN Vital Signs: Temp Pulse Resp BP Pulse Ox 98.4 F 77 20 178/74 96 02/26/18 07:20 02/26/18 07:20 02/26/18 07:20 02/26/18 07:20 02/26/18 07:20 Oxygen Devices in Use Now: None Appearance: Male lying in bed in NAD Eyes: No Scleral Icterus Ears/Nose/Mouth/Throat: Mucous Membranes Moist Neck: Trachea Midline Respiratory: Symmetrical Chest Expansion and Respiratory Effort, Clear to Auscultation Cardiovascular: NL Sounds; No Murmurs; No JVD, No Edema Abdominal: NL Sounds; No Tenderness; No Distention Extremities: No Edema Neurological: Alert and Oriented x 3, NL Muscle Strength and Tone Nutrition: Taking PO's Result Diagrams: 02/26/18 05:47 02/26/18 16:03 Assess/Plan/Problems-Billing Assessment: Mr. El is a 72 y/o male patient with a PMH of who was admitted on with worsening renal failure and worsening left third toe infection with osteomyelitis, found to have a mobile plaque on echo and hydronephrosis with small calculi. - Patient Problems (1) Osteomyelitis Comment: - No signs of sepsis, clinically improving. - Appreciate Ortho and ID consults. - Plan to omptimize kidney function and pursue revascularization with Dr. Cosby prior to surgery with Dr. Culp. - Continue vancomycin. (2) Hydronephrosis Comment: - Patient with no obstructive symptoms but mild hydro to left kidney noted on u/ s. Confirmed on CT abd/pelvis with 4mm calculous in distal L ureter. - Appreciate Dr. Freeman's consult, plan for stent placement in AM when potassium has improved. (3) ARF (acute renal failure) Comment: - Acute on chronic kidney disease, creatinine down to 3.73 today. - FeNa 1.8; suspect cause is multifactorial as patient was on hctz, lisinopril, torsemide and NSAID in setting of DM and infection. Plan to hold nephrotoxins and treat osteomyelitis. - K 6.1 this afternoon, plan for kayexelate, calcium, insulin and gluconate through the night to reduce potassium in preparation for ureteral stent placement in AM. (4) Atherosclerotic plaque Comment: - Noted small plaque on echo yesterday. - Plan for plavix, asa, statin. - Blood cultures with no growth to date. (5) HTN (hypertension) Comment: - SBP 170s. - Continue metoprolol and increased amlodipine. Lisinopril and hctz held given AYDEN. (6) Type 2 diabetes mellitus Comment: - BG well controlled. - Continue lispro and lantus. - Hold metformin. (7) Anemia Comment: - Stable, normocytic anemia, suspect anemia of chronic disease and CKD (8) DVT prophylaxis Comment: - SQ heparin (9) Full code status Comment: Status and Disposition: Inpatient. Anticipate discharge to home when medically stable.
[2018-02-26] MEDS: Aspirin EC TAB* 81 MG TAB.EC PO SCH (08:04)
[2018-02-26] MEDS: Atorvastatin* 80 MG TAB PO SCH (08:04)
[2018-02-26] MEDS: CMCS: Pantoprazole TAB (NF) 40 MG TAB PO SCH (08:04)
[2018-02-26] MEDS: Gemfibrozil TAB* 600 MG PO SCH ×2 (08:04→21:01)
[2018-02-26] MEDS ORDERED: Sodium Polystyrene ORAL.SOL* 15 GM/60 ML BTL PO ONE ×3 (08:20→22:39)
[2018-02-26] MEDS: Insulin LISPRO* 1 UNITS UNIT SUBCUT SCH ×3 (09:17→17:22)
[2018-02-26] MEDS: Insulin GLARGINE(*) 1 UNITS UNIT SUBCUT SCH (09:25)
[2018-02-26] MEDS ORDERED: NS 0.9% 500 ML* 500 ML IV ONE (09:30)
--- NOTE | 2018-02-26 09:51 | PN ---
Progress Note - Progress Note Date of Service: 02/26/18 SOAP: Subjective: CC: foot infection HPI: 72 year old man with left 3rd toe osteomyelitis and cellulitis which worsened and he developed AYDEN on CKD; foot is painful, less red. No fever, rash , or diarrhea. Passing urine without difficulty. Objective: Vital Signs Temp 36.9 C 02/26/18 07:20 Pulse 77 02/26/18 07:20 Resp 20 02/26/18 07:59 BP 178/74 02/26/18 07:20 Pulse Ox 96 02/26/18 07:20 Intake & Output 02/25/18 02/26/18 02/26/18 18:59 06:59 18:59 Intake Total 1476 1987 Output Total 150 1400 Balance 1326 588 Intake: IV Fluids 1236 1987 NS (0.9%) 1987 all fluids 1236 Oral 240 0 Output: Urine 150 1400 Other: Estimated Void Small Date of Last Bowel unknown Movement # Bowel Movements 0 # Voids 1 Gen:awake, no distress HEENT: no thrush Neck:supple Heart:RRR no murmur Lungs:CTA BL Abd:+BS NTND soft Skin: no rash MSK: Left foot trace edema; 3rd toe erythema w dorsal eschar Laboratory Results - last 24 hr 02/25/18 02/25/18 02/25/18 07:31 11:34 17:03 WBC RBC Hgb Hct MCV MCH MCHC RDW Plt Count MPV Neut % (Auto) Lymph % (Auto) [place] % (Auto) Eos % (Auto) Baso % (Auto) Absolute Neuts (auto) Absolute Lymphs (auto) Absolute Monos (auto) Absolute Eos (auto) Absolute Basos (auto) Absolute Nucleated RBC Nucleated RBC % Sodium Potassium Chloride Carbon Dioxide Anion Gap BUN Creatinine Est GFR ( Amer) Est GFR (Non-Af Amer) BUN/Creatinine Ratio Glucose POC Glucose (mg/dL) 176 H 117 H 167 H Calcium Random Vancomycin 02/25/18 02/25/18 02/26/18 19:43 20:08 05:47 WBC 8.9 RBC 3.46 L Hgb 10.2 L Hct 30 L MCV 86 MCH 30 MCHC 34 RDW 15 Plt Count 280 MPV 7.1 L Neut % (Auto) 82.9 Lymph % (Auto) 6.9 L [place] % (Auto) 6.8 Eos % (Auto) 2.4 Baso % (Auto) 1.0 Absolute Neuts (auto) 7.4 Absolute Lymphs (auto) 0.6 L Absolute Monos (auto) 0.6 Absolute Eos (auto) 0.2 Absolute Basos (auto) 0.1 Absolute Nucleated RBC 0 Nucleated RBC % 0 Sodium 139 Potassium 5.8 H Chloride 108 Carbon Dioxide 24 Anion Gap 7 BUN 54 H Creatinine 3.99 H Est GFR ( Amer) 17.9 Est GFR (Non-Af Amer) 14.8 BUN/Creatinine Ratio 13.5 Glucose 152 H POC Glucose (mg/dL) 152 H Calcium 8.7 Random Vancomycin 02/26/18 02/26/18 05:47 07:50 WBC RBC Hgb Hct MCV MCH MCHC RDW Plt Count MPV Neut % (Auto) Lymph % (Auto) [place] % (Auto) Eos % (Auto) Baso % (Auto) Absolute Neuts (auto) Absolute Lymphs (auto) Absolute Monos (auto) Absolute Eos (auto) Absolute Basos (auto) Absolute Nucleated RBC Nucleated RBC % Sodium 139 Potassium 5.8 H Chloride 110 Carbon Dioxide 23 Anion Gap 6 BUN 50 H Creatinine 3.73 H Est GFR ( Amer) 19.4 Est GFR (Non-Af Amer) 16.0 BUN/Creatinine Ratio 13.4 Glucose 134 H POC Glucose (mg/dL) 124 H Calcium 8.6 Random Vancomycin 20.7 Assessment: 1. AYDEN with hyperkalemia, improving ?CASIMIRO vs AIN and with obstructing left ureteral stone ?chronicity 2. Left ureteral stone, fu imaging pending 3. left foot acute osteomyelitis 4. arteriosclerosis by CT angio 5. CKD Plan: 1. continue vancomycin goal tr 15-20 2. bladder US pending 3. eventual vascular intervention and possible toe amputation Discussed rhett Hebert NP
--- NOTE | 2018-02-26 13:35 | PN ---
Progress Note - Progress Note Date of Service: 02/26/18 SOAP: Subjective: Pt lying comfortably in bed. Pt voices his frustration. Minimal complaint of pain. Denies CP, SOB, N/V, F/C Vital Signs: Temp Pulse Resp BP Pulse Ox 98.6 F 70 18 158/62 96 02/26/18 11:12 02/26/18 11:12 02/26/18 12:41 02/26/18 11:12 02/26/18 11:12 Laboratory Last Values WBC 8.9 10^3/ul (3.5-10.8) 02/26/18 05:47 RBC 3.46 10^6/ul (4.00-5.40) L 02/26/18 05:47 Hgb 10.2 g/dl (14.0-18.0) L 02/26/18 05:47 Hct 30 % (42-52) L 02/26/18 05:47 MCV 86 fL (80-94) 02/26/18 05:47 MCH 30 pg (27-31) 02/26/18 05:47 MCHC 34 g/dl (31-36) 02/26/18 05:47 RDW 15 % (10.5-15) 02/26/18 05:47 Plt Count 280 10^3/ul (150-450) 02/26/18 05:47 MPV 7.1 um3 (7.4-10.4) L 02/26/18 05:47 Neut % (Auto) 82.9 % (38-83) 02/26/18 05:47 Lymph % (Auto) 6.9 % (25-47) L 02/26/18 05:47 [place] % (Auto) 6.8 % (0-7) 02/26/18 05:47 Eos % (Auto) 2.4 % (0-6) 02/26/18 05:47 Baso % (Auto) 1.0 % (0-2) 02/26/18 05:47 Absolute Neuts (auto) 7.4 10^3/ul (1.5-7.7) 02/26/18 05:47 Absolute Lymphs (auto) 0.6 10^3/ul (1.0-4.8) L 02/26/18 05:47 Absolute Monos (auto) 0.6 10^3/ul (0-0.8) 02/26/18 05:47 Absolute Eos (auto) 0.2 10^3/ul (0-0.6) 02/26/18 05:47 Absolute Basos (auto) 0.1 10^3/ul (0-0.2) 02/26/18 05:47 Absolute Nucleated RBC 0 10^3/ul 02/26/18 05:47 Nucleated RBC % 0 02/26/18 05:47 ESR 120 mm/Hr (0-40) H 02/24/18 11:21 Eosinophil Smear None seen 02/24/18 13:15 INR (Anticoag Therapy) 1.13 (0.77-1.02) H 02/25/18 07:34 APTT 25.2 seconds (26.0-36.3) L 02/24/18 15:26 Sodium 139 mmol/L (135-145) 02/26/18 05:47 Potassium 5.8 mmol/L (3.5-5.0) H 02/26/18 05:47 Chloride 110 mmol/L (101-111) 02/26/18 05:47 Carbon Dioxide 23 mmol/L (22-32) 02/26/18 05:47 Anion Gap 6 mmol/L (2-11) 02/26/18 05:47 BUN 50 mg/dL (6-24) H 02/26/18 05:47 Creatinine 3.73 mg/dL (0.67-1.17) H 02/26/18 05:47 Est GFR ( Amer) 19.4 (>60) 02/26/18 05:47 Est GFR (Non-Af Amer) 16.0 (>60) 02/26/18 05:47 BUN/Creatinine Ratio 13.4 (8-20) 02/26/18 05:47 Glucose 134 mg/dL (70-100) H 02/26/18 05:47 POC Glucose (mg/dL) 172 mg/dL (70-100) H 02/26/18 11:40 Calcium 8.6 mg/dL (8.6-10.3) 02/26/18 05:47 Phosphorus 4.9 mg/dL (2.5-5.0) 02/24/18 11:21 Magnesium 1.8 mg/dL (1.9-2.7) L 02/24/18 11:21 Total Bilirubin 0.30 mg/dL (0.2-1.0) 02/24/18 11:21 AST 17 U/L (13-39) 02/24/18 11:21 ALT 23 U/L (7-52) 02/24/18 11:21 Alkaline Phosphatase 72 U/L (34-104) 02/24/18 11:21 C-Reactive Protein 62.26 mg/L (<8.01) H 02/24/18 11:21 Total Protein 6.4 g/dL (6.4-8.9) 02/24/18 11:21 Albumin 3.2 g/dL (3.2-5.2) 02/24/18 11:21 Globulin 3.2 g/dL (2-4) 02/24/18 11:21 Albumin/Globulin Ratio 1.0 (1-3) 02/24/18 11:21 Urine Color Yellow 02/24/18 13:15 Urine Appearance Clear 02/24/18 13:15 Urine pH 5.0 (5-9) 02/24/18 13:15 Ur Specific [place] 1.013 (1.010-1.030) 02/24/18 13:15 Urine Protein 1+(30 mg/dl) (Negative) A 02/24/18 13:15 Urine Ketones Negative (Negative) 02/24/18 13:15 Urine Blood 2+ (Negative) A 02/24/18 13:15 Urine Nitrate Negative (Negative) 02/24/18 13:15 Urine Bilirubin Negative (Negative) 02/24/18 13:15 Urine Urobilinogen Negative (Negative) 02/24/18 13:15 Ur Leukocyte Esterase Negative (Negative) 02/24/18 13:15 Urine WBC (Auto) Absent (Absent) 02/24/18 13:15 Urine RBC (Auto) Trace(0-2/hpf) (Absent) 02/24/18 13:15 Ur Squamous Epith Cells Present (Absent) A 02/24/18 13:15 Urine Bacteria Absent (Absent) 02/24/18 13:15 Ur Random Creatinine 127.34 mg/dL 02/24/18 13:15 Ur Random Sodium 61 mmol/L 02/24/18 13:15 Urine Glucose 1+(50 mg/dl) (Negative) A 02/24/18 13:15 Random Vancomycin 20.7 mcg/mL 02/26/18 05:47 Objective: Dressing C/D/I. No edema. No erythema. No foul odor or discharge. Assessment: 72 yo male Left 3rd toe osteo/necrosis Plan: Left 3rd toe amputation. Will require revascularization prior to amp. Awaiting improvement of renal function to proceed. No signs of sepsis.
--- NOTE | 2018-02-26 14:54 | RAD ---
INDICATION: Ureteral calculus assess left ureteral jet. COMPARISON: Comparison is made with a prior CT of the abdomen and pelvis from February 25, 2018. TECHNIQUE: Multiple real-time images of the urinary bladder were obtained. FINDINGS: The bladder is normal in contour. No intraluminal abnormalities are seen. No bladder wall thickening is noted. There is a normal right ureteral jet. No left ureteral jet was visualized during 5 minutes of imaging. The prostate gland measured 4.2 x 4.9 x 5.2 cm for a total volume of 55 ml. The prevoid volume was 412 and a post void residual was 30 ml. IMPRESSION: 1. NO LEFT URETERAL JET IS SEEN CONSISTENT WITH THE PREVIOUSLY NOTED LEFT URETERAL CALCULUS. 2. ENLARGED PROSTATE GLAND AND SMALL POST VOID RESIDUAL.
[2018-02-26 16:30] LABS: EGFR Non-African American 16.1 (>60)
--- NOTE | 2018-02-26 17:06 | CONS ---
CC: Dr. Brooks * NEPHROLOGY CONSULTATION: DATE OF CONSULT: 02/26/18 HISTORY OF PRESENT ILLNESS: Mr. El is a 72-year-old gentleman with a history of diabetes mellitus type 2. He does not really known how long he has had diabetes. He states he does not have a history of retinopathy, but he has had intermittent neuropathy for a number of years, but he is not really sure how long. He has been having a problem with chronic infection of the third toe on his left foot and there was some tissue necrosis. Because of the question of vascular supply to his foot, he had a CTA with runoff on 02/11/18. He was seen by Dr. Yanes in the office and felt that his toe looked worse and he was brought into the hospital where he is being evaluated for the potential of an amputation and/or revascularization of his foot. He has had some drainage from his toe. At the present time, he feels fairly well. He denies lightheadedness , dizziness, chest pain, dry mouth, nausea, vomiting, dysuria, frequency, urgency, flank pain, gross hematuria. PAST MEDICAL HISTORY: His previous medical history is significant for hypertension. He is not sure how long he has had high blood pressure. He has a history of coronary artery disease, hyperlipidemia, and has known chronic renal insufficiency. He has a history of coronary artery disease and has had triple vessel coronary artery bypass grafting at [facility] in October. He has had some edema to his left leg since the vein harvesting. He has had knee replacement and a right shoulder replacement. MEDICATIONS: Include: 1. Rocephin 2 g daily. 2. Norvasc 5 mg daily. 3. Prilosec 20 mg daily. 4. Mobic 15 mg daily. 5. Toprol XL 25 mg daily. 6. Lacto acidophilus 1 daily. 7. Aspirin 81 mg daily. 8. Tylenol as required. 9. Tylenol with Codeine 1 to 2 every 6 hours p.r.n. 10. Demadex 20 mg daily. 11. Potassium 10 mEq daily. 12. Niaspan 500 mg daily. 13. Lopid 300 mg daily. 14. Atorvastatin 80 mg daily. 15. Lisinopril 40 mg daily. 16. Insulin sliding scale with meals. 17. Hydrochlorothiazide 25 mg daily. 18. Glucophage 1000 mg, which he has not been taking recently. 19. Insulin degludec 48 units subcu daily. ALLERGIES: He has no medical allergies. SOCIAL HISTORY: He quit smoking 30 years ago. He quit drinking at the same time. REVIEW OF SYSTEMS: He has had no fevers, no chills, no swallowing difficulty, no heat or cold intolerance, no chest pain. No dysuria, frequency, or urgency. PHYSICAL EXAM: General: He is a comfortable-appearing white gentleman. He has been afebrile. His blood pressure has typically been in the 150s over the mid 70s, pulse typically around 70, O2 saturation 98%. HEENT: He is normocephalic. He is anicteric. His extraocular muscles are intact. His mucous membranes are moist. Chest is clear. Heart revealed a regular rhythm without murmurs. The abdomen is soft and nontender. Bowel sounds are positive. His left foot was dressed. I did not take the dressing down. LABORATORY DATA: Review of his laboratory studies reveals a white count of 8.9 , hemoglobin of 10.2. Sodium 139, potassium 5.8, chloride 110, total CO2 of 23 , BUN 50, creatinine of 3.73, it has been falling since admission. Since admission on my recommendation, Mobic and lisinopril have been withdrawn as well as hydrochlorothiazide. IMPRESSION: [id number] renal insufficiency. This is likely due to the combined effects of Mobic plus x-ray contrast agents in the presence of lisinopril and the potential for dehydration. He tells me he has been drinking well on the days prior to admission. At the present time, I will continue the present therapy. I would be concerned about the combined use of Lopid together with atorvastatin as there is potential for rhabdomyolysis. Obviously, he should continue to be off metformin until his renal function recovers entirely. I would not re-administer lisinopril until his renal function stabilizes. I have discussed the case with Vito Naranjo NP. [id number]/[facility] #: [id number] PLA[facility] HOSPITALCarolyne
[2018-02-26] MEDS ORDERED: Calcium Gluconate INJ* 1 GM in NS 0.9% 50 ML* 50 ML IVPB ONE (17:27)
[2018-02-26] MEDS ORDERED: Insulin REGULAR(*) 1 UNITS UNIT IV PUSH ONE (17:32)
[2018-02-26] MEDS ORDERED: Dextrose 50% Syringe 50 ML* 25 GM/50 ML SYRINGE IV PUSH ONE (17:33)
[2018-02-26] MEDS ORDERED: Albuterol 2.5 MG/3 ML NEB.SOL* (0.083%) INH ONE ×2 (17:50→18:04)
--- NOTE | 2018-02-26 18:32 | RAD ---
INDICATION: Hypoxia and shortness of breath COMPARISON: Most recent comparison chest x-rays dated January 18, 2018 TECHNIQUE: Single AP portable view of the chest was obtained. FINDINGS: Image quality is compromised due to the relative inferiority of a portable chest x-ray. There is a mild degree of cardiomegaly. The heart and mediastinum otherwise exhibit normal contour. Again noted is coarse calcification overlying the arch of the aorta. The pulmonary vasculature is mildly engorged and indistinct. There is faint costophrenic angle blunting bilaterally. Visualized bones are normal for the patient's age. IMPRESSION: Chest x-ray findings are most consistent with cardiogenic pulmonary edema and vascular congestion.
[2018-02-26] MEDS: Clopidogrel TAB* 75 MG PO SCH (18:36)
[2018-02-26] MEDS ORDERED: Furosemide IV* 10 MG/ML VIAL (40 MG) IV ONE (18:47)
[2018-02-26] MEDS ORDERED: Metoprolol Tartrate TAB* 25 MG PO ONE (19:06)
[2018-02-27] MEDS ORDERED: Sodium Polystyrene ORAL.SOL* 15 GM/60 ML BTL PO ONE ×2 (00:01→03:48)
[2018-02-27] MEDS: Heparin VIAL(*) 5000 UNITS/ML VIAL (FIVE THOUSAND) SUBCUT SCH ×3 (05:00→21:16)
[2018-02-27] MEDS ORDERED: Buffered Lidocaine 0.9% SYRIN* 5 ML/SYR SYRINGE INTRADERM ONE (05:00)
[2018-02-27] MEDS ORDERED: Vancomycin Random Level* NOTE FOLLOW UP ONE (06:00)
[2018-02-27 06:15] LABS: ABS Basophils 0.1 10^3/ul (0-0.2); ABS Eosinophils 0.2 10^3/ul (0-0.6); ABS Lymphocytes 0.6 10^3/ul (1.0-4.8); ABS Monocytes 0.5 10^3/ul (0-0.8); ABS Neutrophils 5.5 10^3/ul (1.5-7.7); ABS Nucleated RBC 0 10^3/ul; Eosinophil % 3.3 % (0-6); Hematocrit 32 % (42-52); Hemoglobin 10.8 g/dl (14.0-18.0); Lymphocyte % 8.5 % (25-47); Mean Corpuscular HGB Conc 34 g/dl (31-36); Mean Corpuscular Hemoglobin 29 pg (27-31); Mean Corpuscular Volume 86 fL (80-94); Mean Platelet Volume 6.8 um3 (7.4-10.4); Nucleated Red Blood Cells % 0; Platelet Count 274 10^3/ul (150-450); Red Blood Count 3.69 10^6/ul (4.00-5.40); Red Cell Distribution Width 15 % (10.5-15); White Blood Count 6.9 10^3/ul (3.5-10.8)
[2018-02-27 06:34] LABS: EGFR Non-African American 16.7 (>60)
[2018-02-27] MEDS: NS 0.9% 1000 ML* 1,000 ML IV SCH ×2 (06:39→22:51)
--- NOTE | 2018-02-27 06:54 | PN ---
Subjective Date of Service: 02/27/18 Interval History: Mr El reports frequent bowel movements overnight due to administration of kayexalte for hyperkalemia. He denies chest pain, SOB, nausea, or abdominal pain. He remains on 2L NC since yesterday. Plan for ureteral stent placement today with Dr. Hua. Objective Active Medications: Acetaminophen (Tylenol Tab*) 650 mg PO Q4H PRN Acetaminophen/Codeine Phosphate (Tylenol/Codeine 30 Mg Tab*) 1 tab PO Q6H PRN Amlodipine Besylate (Norvasc Tab*) 10 mg PO DAILY [facility] Aspirin (Aspirin Ec Tab*) 81 mg PO DAILY [facility] Atorvastatin Calcium (Lipitor*) 80 mg PO DAILY [facility] Clopidogrel Bisulfate (Plavix Tab*) 75 mg PO 1845 [facility] Dextrose (D50w Syringe 50 Ml*) 12.5 gm IV PUSH .FOR FS < 60 - SS PRN Gemfibrozil (Lopid Tab*) 300 mg PO BID [facility] Heparin Sodium (Porcine) (Heparin Vial(*)) 5,000 units SUBCUT Q8HR [facility] Sodium Chloride (Ns 0.9% 1000 Ml*) 1,000 mls @ 100 mls/hr IV PER RATE [facility] Insulin Glargine (Lantus(*)) 48 units SUBCUT DAILY [facility] Insulin Human Lispro (Humalog*) 0 units SUBCUT AC [facility]; Protocol Metoprolol Succinate (Toprol Xl Tab*) 25 mg PO DAILY [facility] Morphine Sulfate (Morphine Inj ((Syringe))*) 2 mg IV Q4H PRN Ondansetron HCl (Zofran Inj*) 4 mg IV Q6H PRN Pantoprazole Sodium (Protonix Tab (Nf)) 40 mg PO DAILY [facility] Pharmacy Consult (Vancomycin Per Pharmacy*) 1 note FOLLOW UP . PRN Vital Signs: Temp Pulse Resp BP Pulse Ox 98.0 F 69 18 181/73 100 02/27/18 07:23 02/27/18 07:23 02/27/18 08:51 02/27/18 07:23 02/27/18 07:23 Oxygen Devices in Use Now: Nasal Cannula Appearance: Male lying in bed in NAD Eyes: No Scleral Icterus Ears/Nose/Mouth/Throat: Mucous Membranes Moist Neck: Trachea Midline Respiratory: Symmetrical Chest Expansion and Respiratory Effort, Clear to Auscultation Cardiovascular: NL Sounds; No Murmurs; No JVD Abdominal: NL Sounds; No Tenderness; No Distention Skin: - - 3rd toe on left foot with eschar on the anterior aspect, minimal erythema, no drainage Neurological: Alert and Oriented x 3, NL Muscle Strength and Tone Nutrition: Taking PO's Result Diagrams: 02/27/18 06:08 02/27/18 06:08 Assess/Plan/Problems-Billing Assessment: Mr. El is a 72 y/o male patient with a PMH of who was admitted on with worsening renal failure and worsening left third toe infection with osteomyelitis, found to have a mobile plaque on echo and hydronephrosis with small calculi. - Patient Problems (1) Osteomyelitis Comment: - No signs of sepsis, clinically improving. - Appreciate Ortho and ID consults. - Plan to omptimize kidney function and pursue revascularization with Dr. Cosby prior to surgery with Dr. Culp. - Continue vancomycin. (2) Hydronephrosis Comment: - Patient with no obstructive symptoms but mild hydro to left kidney noted on u/ s. Confirmed on CT abd/pelvis with 4mm calculous in distal L ureter. - Appreciate Dr. Freeman's consult, plan for stent placement today. Monitor for post-obstructive diuresis post-procedure. (3) ARF (acute renal failure) Comment: - Acute on chronic kidney disease, creatinine down to 3.6 today. - FeNa 1.8; suspect cause is multifactorial as patient was on hctz, lisinopril, torsemide and NSAID in setting of DM and infection. Plan to hold nephrotoxins, place ureteral stent for nephrolithiasis with hydronephrosis, and treat osteomyelitis. - K 5.0 this morning, monitor (4) Atherosclerotic plaque Comment: - Noted small plaque on echo. - Plan for plavix, asa, statin. - Blood cultures with no growth to date. (5) HTN (hypertension) Comment: - SBP 170s. - Continue increased metoprolol and increased amlodipine. Hydralazine prn added. (6) Type 2 diabetes mellitus Comment: - BG well controlled. - Continue lispro and lantus. - Hold metformin. (7) Anemia Comment: - Stable, normocytic anemia, suspect anemia of chronic disease and CKD (8) DVT prophylaxis Comment: - SQ heparin (9) Full code status Comment: Status and Disposition: Inpatient. Anticipate discharge to home when medically stable.
[2018-02-27] MEDS ORDERED: Iohexol 180 (CONTRAST) 10 ML SDV IV ONE (07:24)
[2018-02-27] MEDS: Insulin LISPRO* 1 UNITS UNIT SUBCUT SCH ×3 (07:42→17:24)
[2018-02-27] MEDS ORDERED: cefTRIAXone(*) 1 GM ADVAN/BAG ONE (07:57)
[2018-02-27] MEDS ORDERED: Vancomycin 1500 MG IV - x ONCE IVPB ONE ×2 (09:00)
[2018-02-27] MEDS ORDERED: hydrALAZINE IV* 20 MG/ML VIAL IV SLOW PU PRN (09:18)
[2018-02-27] MEDS ORDERED: HYDROmorphone INJ* 0.5 MG/0.5 ML SYRINGE IV PRN (09:44)
[2018-02-27] MEDS ORDERED: Acetaminophen TAB* 325 MG PO PRN (09:44)
[2018-02-27] MEDS ORDERED: Naloxone* 0.4 MG/ML 1 ML VIAL IV PRN (09:44)
[2018-02-27] MEDS ORDERED: DiMENhydriNATE IV* 50 MG/ML VIAL IV PUSH PRN (09:44)
[2018-02-27] MEDS: Metoprolol Succinate XL TAB* 25 MG PO SCH (11:08)
[2018-02-27] MEDS: Aspirin EC TAB* 81 MG TAB.EC PO SCH (11:11)
[2018-02-27] MEDS: CMCS: Pantoprazole TAB (NF) 40 MG TAB PO SCH (11:11)
[2018-02-27] MEDS: Atorvastatin* 80 MG TAB PO SCH (11:11)
[2018-02-27] MEDS: Gemfibrozil TAB* 600 MG PO SCH ×2 (11:12→21:16)
[2018-02-27] MEDS: amLODIPine TAB* 5 MG PO SCH (11:12)
[2018-02-27] MEDS: Insulin GLARGINE(*) 1 UNITS UNIT SUBCUT SCH (11:13)
[2018-02-27] MEDS: Clopidogrel TAB* 75 MG PO SCH (17:24)
--- NOTE | 2018-02-27 20:51 | OP ---
DATE OF OPERATION: 02/27/18 - ROOM #414 DATE OF : 43 SURGEON: Jamal Hua MD. ANESTHESIOLOGIST: Dr. Parikh. ANESTHESIA: General. PRE-OP DIAGNOSES: 1. Distal left ureteral calculus. 2. Hydronephrosis and decreased renal function due to above. POST-OP DIAGNOSES: 1. Distal left ureteral calculus. 2. Hydronephrosis and decreased renal function due to above. OPERATIVE PROCEDURES: 1. Cystoscopy. 2. Left ureteroscopy, laser lithotripsy of left ureteral calculus. 3. Left retrograde pyelography and and placement of left ureteral stent (6- Macanese). INDICATIONS: Mr. El is a 72-year-old white male who was admitted with abdominal pain and was noted to have a 5 mm calculus in the distal left ureter associated with left hydronephrosis. The patient is is known to have a decreased renal function and it got worse with his serum creatinine up to 4. Renal ultrasound showed moderate Lt hydronephrosis and no jets from the left ureteral orifice. The patient was scheduled to undergo this procedure yesterday afternoon; however, his serum potassium was elevated and he had some cardiac problems. The procedure was delayed until this morning after adjusting his cardiac condition and his electrolytes. PATHOLOGY AT CYSTOSCOPY: The penile and bulbar urethra looked normal. The prostatic urethra measured 3 cm in length and there was moderate degree of obstruction by trilobar hyperplasia of the prostate with elevated bladder neck and moderately obstructing median lobe. Examination of the bladder showed normal bladder mucosa. There were no suspicious bladder lesions seen. No calculi, no diverticula were noted. The ureteral orifices looked normal. Upon left ureteroscopy, a spherical, smooth 5 to 6 mm calculus was noted in the distal left ureter about 3 cm proximal to the level of the orifice. The calculus had the gross appearance of a calcium oxalate stone. There was significant degree of edema to the ureteral mucosa adjacent to the stone. Cloudy and concentrated dark bloody urine was drained from the left kidney following bypassing the calculus. Left retrograde pyelography showed only mild hydronephrosis. DESCRIPTION OF PROCEDURE: After successful general anesthesia, the patient was placed in the lithotomy position and was prepped and draped for a cystoscopy. Cystoscopy was performed. The bladder was carefully inspected and the above findings were noted. A flexible tip hybrid guidewire was introduced into the left orifice and positioned in the area of the renal pelvis. A 6.5 semirigid ureteroscope was then introduced inside the bladder. A flexible tip basket was introduced through the port of the ureteroscope and its flexible tip was passed inside the left ureter alongside the guidewire. That allowed the atraumatic introduction of the ureteroscope inside the ureter. The calculus was identified. The basket was deployed and the stone was engaged to avoid its proximal migration. A size 550 micron laser fiber was then introduced through the other port of the ureteroscope. The stone was then fragmented into several pieces using the laser energy. The fragments were then extracted without difficulty. The larger fragment was saved and sent for stone analysis. Final ureteroscopy showed no residual stone fragments, intact ureteral wall and the expected edema and hyperemia from the impaction of the stone. The ureteroscope was then removed keeping the guidewire in place. The cystoscope was then introduced over the guidewire. Retrograde pyelography was performed. A size 6-Macanese stent was then placed with the proximal end coiling in the collecting system and the distal end coiling inside the bladder. There was good drainage of contrast from the kidney and no extravasation. A size 16-Macanese Hardin catheter was then passed inside the bladder. Rectal examination was then performed showing a moderately enlarged but nonsuspicious prostate. The patient tolerated the procedure well and left the operating room in good condition. The plan is to keep the stent in place for about 10 days. It will be removed in the office under local anesthesia. [id number]/CPS #: [id number]
[2018-02-28] MEDS ORDERED: Vancomycin Random Level* NOTE FOLLOW UP ONE (06:00)
[2018-02-28] MEDS: Heparin VIAL(*) 5000 UNITS/ML VIAL (FIVE THOUSAND) SUBCUT SCH ×3 (06:01→21:10)
[2018-02-28 07:04] LABS: EGFR Non-African American 18.7 (>60)
--- NOTE | 2018-02-28 07:36 | PN ---
Subjective Date of Service: 02/28/18 Interval History: Mr. El reports feeling well today. He denies any acute complaint including chest pain, SOB, nausea, or abdominal pain. His loya has been removed and he has voided without discomfort. Objective Active Medications: Acetaminophen (Tylenol Tab*) 650 mg PO Q4H PRN Acetaminophen/Codeine Phosphate (Tylenol/Codeine 30 Mg Tab*) 1 tab PO Q6H PRN Amlodipine Besylate (Norvasc Tab*) 10 mg PO DAILY [facility] Aspirin (Aspirin Ec Tab*) 81 mg PO DAILY [facility] Atorvastatin Calcium (Lipitor*) 80 mg PO DAILY [facility] Clopidogrel Bisulfate (Plavix Tab*) 75 mg PO 1845 [facility] Dextrose (D50w Syringe 50 Ml*) 12.5 gm IV PUSH .FOR FS < 60 - SS PRN Gemfibrozil (Lopid Tab*) 300 mg PO BID [facility] Heparin Sodium (Porcine) (Heparin Vial(*)) 5,000 units SUBCUT Q8HR [facility] Hydralazine HCl (Apresoline Iv*) 5 mg IV SLOW PU Q6H PRN Sodium Chloride (Ns 0.9% 1000 Ml*) 1,000 mls @ 100 mls/hr IV PER RATE [facility] Insulin Glargine (Lantus(*)) 48 units SUBCUT DAILY [facility] Insulin Human Lispro (Humalog*) 0 units SUBCUT AC [facility]; Protocol Metoprolol Succinate (Toprol Xl Tab*) 50 mg PO DAILY [facility] Morphine Sulfate (Morphine Inj ((Syringe))*) 2 mg IV Q4H PRN Ondansetron HCl (Zofran Inj*) 4 mg IV Q6H PRN Pantoprazole Sodium (Protonix Tab (Nf)) 40 mg PO DAILY [facility] Pharmacy Consult (Vancomycin Per Pharmacy*) 1 note FOLLOW UP . PRN Vital Signs: Temp Pulse Resp BP Pulse Ox 98.3 F 78 20 165/74 98 02/28/18 02:14 02/28/18 02:14 02/28/18 02:14 02/28/18 02:14 02/28/18 02:14 Oxygen Devices in Use Now: None Appearance: Male lying in bed in NAD Eyes: No Scleral Icterus Ears/Nose/Mouth/Throat: Mucous Membranes Moist Neck: Trachea Midline Respiratory: Symmetrical Chest Expansion and Respiratory Effort, Clear to Auscultation Cardiovascular: NL Sounds; No Murmurs; No JVD, No Edema Abdominal: NL Sounds; No Tenderness; No Distention Lymphatic: No Cervical Adenopathy Extremities: No Edema Skin: - - Left 3rd toe unchanged, eschar to anterior toe with minimal erythema and no drainage Neurological: Alert and Oriented x 3, NL Muscle Strength and Tone Nutrition: Taking PO's Result Diagrams: 02/27/18 06:08 02/28/18 06:05 Assess/Plan/Problems-Billing Assessment: Mr. El is a 72 y/o male patient with a PMH of who was admitted on with worsening renal failure and worsening left third toe infection with osteomyelitis, found to have a mobile plaque on echo and hydronephrosis with small calculi. - Patient Problems (1) Osteomyelitis Comment: - No signs of sepsis, clinically improving. - Appreciate Ortho and ID consults. - Plan to omptimize kidney function and pursue revascularization with Dr. Cosby prior to surgery with Dr. Culp. - Continue vancomycin. (2) Hydronephrosis Comment: - Ureteral stent placed by Dr. Hua with removal of obstructing calculus. - No post obstructive diuresis observed. (3) ARF (acute renal failure) Comment: - Acute on chronic kidney disease, creatinine down to 3.2 today. - FeNa 1.8; suspect cause is multifactorial as patient was on hctz, lisinopril, torsemide and NSAID in setting of DM and infection with obstructing calculus and hydronephrosis. - Hyperkalemia resolved. (4) Atherosclerotic plaque Comment: - Noted small plaque on echo. - Appreciate cardiology consult. Plan for plavix, asa, statin. - Blood cultures with no growth to date. (5) HTN (hypertension) Comment: - SBP 140-160s. - Continue increased metoprolol and increased amlodipine. Hydralazine prn added. (6) Type 2 diabetes mellitus Comment: - BG slightly elevated. - Continue lispro and increase lantus. - Hold metformin. (7) Anemia Comment: - Stable, normocytic anemia, suspect anemia of chronic disease and CKD (8) DVT prophylaxis Comment: - SQ heparin (9) Full code status Comment: Status and Disposition: Inpatient. Anticipate discharge to home when medically stable.
[2018-02-28] MEDS: Insulin GLARGINE(*) 1 UNITS UNIT SUBCUT SCH (08:36)
[2018-02-28] MEDS: Aspirin EC TAB* 81 MG TAB.EC PO SCH (08:37)
[2018-02-28] MEDS: Atorvastatin* 80 MG TAB PO SCH (08:37)
[2018-02-28] MEDS: amLODIPine TAB* 5 MG PO SCH (08:37)
[2018-02-28] MEDS: Metoprolol Succinate XL TAB* 50 MG PO SCH (08:37)
[2018-02-28] MEDS: Insulin LISPRO* 1 UNITS UNIT SUBCUT SCH ×3 (08:37→17:34)
[2018-02-28] MEDS: CMCS: Pantoprazole TAB (NF) 40 MG TAB PO SCH (10:40)
[2018-02-28] MEDS: Gemfibrozil TAB* 600 MG PO SCH ×2 (10:40→18:40)
[2018-02-28] MEDS: Vancomycin(*) 750 MG in NS 0.9% 250 ML* 250 ML IVPB SCH (11:27)
[2018-02-28] MEDS: NS 0.9% 1000 ML* 1,000 ML IV SCH (11:28)
[2018-02-28] MEDS: Acetaminop/Codeine 30 MG TAB* 1 TAB (300 MG/30 MG) PO PRN ×2 (13:06→21:06)
--- NOTE | 2018-02-28 17:14 | PN ---
Progress Note - Progress Note Date of Service: 02/28/18 SOAP: Subjective: Pt seen at bedside. He is resting comfortably in bed. Has no complaints today. No complaint of pain. Denies CP, SOB, F/C. Vital Signs: Temp Pulse Resp BP Pulse Ox 98.3 F 73 22 148/64 98 02/28/18 15:26 02/28/18 15:26 02/28/18 15:26 02/28/18 15:26 02/28/18 16:00 Laboratory Last Values WBC 6.9 10^3/ul (3.5-10.8) 02/27/18 06:08 RBC 3.69 10^6/ul (4.00-5.40) L 02/27/18 06:08 Hgb 10.8 g/dl (14.0-18.0) L 02/27/18 06:08 Hct 32 % (42-52) L 02/27/18 06:08 MCV 86 fL (80-94) 02/27/18 06:08 MCH 29 pg (27-31) 02/27/18 06:08 MCHC 34 g/dl (31-36) 02/27/18 06:08 RDW 15 % (10.5-15) 02/27/18 06:08 Plt Count 274 10^3/ul (150-450) 02/27/18 06:08 MPV 6.8 um3 (7.4-10.4) L 02/27/18 06:08 Neut % (Auto) 79.8 % (38-83) 02/27/18 06:08 Lymph % (Auto) 8.5 % (25-47) L 02/27/18 06:08 [place] % (Auto) 7.2 % (0-7) H 02/27/18 06:08 Eos % (Auto) 3.3 % (0-6) 02/27/18 06:08 Baso % (Auto) 1.2 % (0-2) 02/27/18 06:08 Absolute Neuts (auto) 5.5 10^3/ul (1.5-7.7) 02/27/18 06:08 Absolute Lymphs (auto) 0.6 10^3/ul (1.0-4.8) L 02/27/18 06:08 Absolute Monos (auto) 0.5 10^3/ul (0-0.8) 02/27/18 06:08 Absolute Eos (auto) 0.2 10^3/ul (0-0.6) 02/27/18 06:08 Absolute Basos (auto) 0.1 10^3/ul (0-0.2) 02/27/18 06:08 Absolute Nucleated RBC 0 10^3/ul 02/27/18 06:08 Nucleated RBC % 0 02/27/18 06:08 ESR 120 mm/Hr (0-40) H 02/24/18 11:21 Eosinophil Smear None seen 02/24/18 13:15 INR (Anticoag Therapy) 1.13 (0.77-1.02) H 02/25/18 07:34 APTT 25.2 seconds (26.0-36.3) L 02/24/18 15:26 Sodium 142 mmol/L (135-145) 02/28/18 06:05 Potassium 4.6 mmol/L (3.5-5.0) 02/28/18 06:05 Chloride 110 mmol/L (101-111) 02/28/18 06:05 Carbon Dioxide 25 mmol/L (22-32) 02/28/18 06:05 Anion Gap 7 mmol/L (2-11) 02/28/18 06:05 BUN 41 mg/dL (6-24) H 02/28/18 06:05 Creatinine 3.26 mg/dL (0.67-1.17) H 02/28/18 06:05 Est GFR ( Amer) 22.7 (>60) 02/28/18 06:05 Est GFR (Non-Af Amer) 18.7 (>60) 02/28/18 06:05 BUN/Creatinine Ratio 12.6 (8-20) 02/28/18 06:05 Glucose 158 mg/dL (70-100) H 02/28/18 06:05 POC Glucose (mg/dL) 234 mg/dL (70-100) H 02/28/18 16:32 Calcium 8.5 mg/dL (8.6-10.3) L 02/28/18 06:05 Phosphorus 4.9 mg/dL (2.5-5.0) 02/24/18 11:21 Magnesium 1.8 mg/dL (1.9-2.7) L 02/24/18 11:21 Total Bilirubin 0.30 mg/dL (0.2-1.0) 02/24/18 11:21 AST 17 U/L (13-39) 02/24/18 11:21 ALT 23 U/L (7-52) 02/24/18 11:21 Alkaline Phosphatase 72 U/L (34-104) 02/24/18 11:21 C-Reactive Protein 62.26 mg/L (<8.01) H 02/24/18 11:21 Total Protein 6.4 g/dL (6.4-8.9) 02/24/18 11:21 Albumin 3.2 g/dL (3.2-5.2) 02/24/18 11:21 Globulin 3.2 g/dL (2-4) 02/24/18 11:21 Albumin/Globulin Ratio 1.0 (1-3) 02/24/18 11:21 Urine Color Yellow 02/24/18 13:15 Urine Appearance Clear 02/24/18 13:15 Urine pH 5.0 (5-9) 02/24/18 13:15 Ur Specific [place] 1.013 (1.010-1.030) 02/24/18 13:15 Urine Protein 1+(30 mg/dl) (Negative) A 02/24/18 13:15 Urine Ketones Negative (Negative) 02/24/18 13:15 Urine Blood 2+ (Negative) A 02/24/18 13:15 Urine Nitrate Negative (Negative) 02/24/18 13:15 Urine Bilirubin Negative (Negative) 02/24/18 13:15 Urine Urobilinogen Negative (Negative) 02/24/18 13:15 Ur Leukocyte Esterase Negative (Negative) 02/24/18 13:15 Urine WBC (Auto) Absent (Absent) 02/24/18 13:15 Urine RBC (Auto) Trace(0-2/hpf) (Absent) 02/24/18 13:15 Ur Squamous Epith Cells Present (Absent) A 02/24/18 13:15 Urine Bacteria Absent (Absent) 02/24/18 13:15 Ur Random Creatinine 127.34 mg/dL 02/24/18 13:15 Ur Random Sodium 61 mmol/L 02/24/18 13:15 Urine Glucose 1+(50 mg/dl) (Negative) A 02/24/18 13:15 Random Vancomycin 19.3 mcg/mL 02/28/18 06:05 Objective: Dressing C/D/I. No edema. No erythema. Assessment: 72 yo male left 3rd toe osteo/necrosis Plan: Will require revascularisation prior to left 3rd toe amp. Awaiting improvement in renal function to proceed. No signs of sepsis.
[2018-02-28] MEDS: Clopidogrel TAB* 75 MG PO SCH (18:14)
[2018-03-01] MEDS: Heparin VIAL(*) 5000 UNITS/ML VIAL (FIVE THOUSAND) SUBCUT SCH ×3 (05:16→21:45)
[2018-03-01] MEDS: NS 0.9% 1000 ML* 1,000 ML IV SCH (06:19)
[2018-03-01 06:51] LABS: ABS Basophils 0.1 10^3/ul (0-0.2); ABS Eosinophils 0.4 10^3/ul (0-0.6); ABS Lymphocytes 0.8 10^3/ul (1.0-4.8); ABS Monocytes 0.5 10^3/ul (0-0.8); ABS Neutrophils 5.3 10^3/ul (1.5-7.7); ABS Nucleated RBC 0 10^3/ul; Eosinophil % 5.9 % (0-6); Hematocrit 30 % (42-52); Hemoglobin 9.8 g/dl (14.0-18.0); Lymphocyte % 11.6 % (25-47); Mean Corpuscular HGB Conc 33 g/dl (31-36); Mean Corpuscular Hemoglobin 29 pg (27-31); Mean Corpuscular Volume 87 fL (80-94); Mean Platelet Volume 6.7 um3 (7.4-10.4); Nucleated Red Blood Cells % 0; Platelet Count 264 10^3/ul (150-450); Red Cell Distribution Width 15 % (10.5-15); White Blood Count 7.2 10^3/ul (3.5-10.8)
[2018-03-01] MEDS: Insulin LISPRO* 1 UNITS UNIT SUBCUT SCH ×3 (07:36→16:13)
[2018-03-01 07:50] LABS: EGFR Non-African American 19.8 (>60)
[2018-03-01] MEDS: Metoprolol Succinate XL TAB* 50 MG PO SCH (08:17)
[2018-03-01] MEDS: Gemfibrozil TAB* 600 MG PO SCH ×2 (08:17→21:45)
[2018-03-01] MEDS: Atorvastatin* 80 MG TAB PO SCH (08:17)
[2018-03-01] MEDS: Aspirin EC TAB* 81 MG TAB.EC PO SCH (08:18)
[2018-03-01] MEDS: amLODIPine TAB* 5 MG PO SCH (08:18)
[2018-03-01] MEDS: Insulin GLARGINE(*) 1 UNITS UNIT SUBCUT SCH (08:18)
--- NOTE | 2018-03-01 10:21 | PN ---
Progress Note - Progress Note Date of Service: 03/01/18 SOAP: Subjective: CC: foot infection HPI: 72 year old man with left 3rd toe osteomyelitis and cellulitis which worsened and he developed AYDEN on CKD; redness is gone. No fever, rash, or diarrhea. Objective: Vital Signs Temp 36.7 C 03/01/18 07:22 Pulse 64 03/01/18 07:22 Resp 17 03/01/18 08:00 BP 154/63 03/01/18 07:22 Pulse Ox 95 03/01/18 08:00 Intake & Output 02/28/18 03/01/18 03/01/18 18:59 06:59 18:59 Intake Total 1040 1662 120 Output Total 675 520 380 Balance 365 1142 -260 Intake: IV Fluids 1262 NS (0.9%) 1262 IVPB 260 ABX - VANCOMYCIN 260 Oral 1040 140 120 Output: Urine 675 520 380 Other: Estimated Void Small # Bowel Movements 1 0 # Voids 2 Gen:awake, no distress HEENT: no thrush Neck:supple Heart:RRR no murmur Lungs:CTA BL Abd:+BS NTND soft Skin: no rash MSK: Left foot trace edema; 3rd toe erythema w dorsal eschar Laboratory Results - last 24 hr 02/28/18 02/28/18 03/01/18 12:39 16:32 06:34 WBC 7.2 RBC 3.40 L Hgb 9.8 L Hct 30 L MCV 87 MCH 29 MCHC 33 RDW 15 Plt Count 264 MPV 6.7 L Neut % (Auto) 73.9 Lymph % (Auto) 11.6 L [place] % (Auto) 7.3 H Eos % (Auto) 5.9 Baso % (Auto) 1.3 Absolute Neuts (auto) 5.3 Absolute Lymphs (auto) 0.8 L Absolute Monos (auto) 0.5 Absolute Eos (auto) 0.4 Absolute Basos (auto) 0.1 Absolute Nucleated RBC 0 Nucleated RBC % 0 Sodium Potassium Chloride Carbon Dioxide Anion Gap BUN Creatinine Est GFR ( Amer) Est GFR (Non-Af Amer) BUN/Creatinine Ratio Glucose POC Glucose (mg/dL) 201 H 234 H Calcium 03/01/18 03/01/18 06:34 07:24 WBC RBC Hgb Hct MCV MCH MCHC RDW Plt Count MPV Neut % (Auto) Lymph % (Auto) [place] % (Auto) Eos % (Auto) Baso % (Auto) Absolute Neuts (auto) Absolute Lymphs (auto) Absolute Monos (auto) Absolute Eos (auto) Absolute Basos (auto) Absolute Nucleated RBC Nucleated RBC % Sodium 144 Potassium 4.4 Chloride 111 Carbon Dioxide 26 Anion Gap 7 BUN 41 H Creatinine 3.11 H Est GFR ( Amer) 23.9 Est GFR (Non-Af Amer) 19.8 BUN/Creatinine Ratio 13.2 Glucose 92 POC Glucose (mg/dL) 93 Calcium 8.4 L Assessment: 1. AYDEN with hyperkalemia, improving ?CASIMIRO vs AIN and with obstructing left ureteral stone ?chronicity 2. Left ureteral stone s/p lithotripsy 3. left foot acute osteomyelitis 4. arteriosclerosis by CT angio 5. CKD Plan: 1. continue vancomycin goal tr 15-20, day 5 2. eventual vascular intervention pending nephrology evaluation and possible subsequent toe amputation
[2018-03-01] MEDS: Vancomycin(*) 750 MG in NS 0.9% 250 ML* 250 ML IVPB SCH (11:22)
[2018-03-01] MEDS: CMCS: Pantoprazole TAB (NF) 40 MG TAB PO SCH (11:23)
--- NOTE | 2018-03-01 13:23 | PN ---
Progress Note - Progress Note Date of Service: 03/01/18 SOAP: Subjective: Pt seen at bedside resting comfortably. Minimal complaint of pain. Denies CP, SOB, N/V, F/C. Vital Signs: Temp Pulse Resp BP Pulse Ox 98.1 F 66 18 156/63 92 03/01/18 11:30 03/01/18 11:30 03/01/18 11:30 03/01/18 11:30 03/01/18 11:30 Laboratory Last Values WBC 7.2 10^3/ul (3.5-10.8) 03/01/18 06:34 RBC 3.40 10^6/ul (4.00-5.40) L 03/01/18 06:34 Hgb 9.8 g/dl (14.0-18.0) L 03/01/18 06:34 Hct 30 % (42-52) L 03/01/18 06:34 MCV 87 fL (80-94) 03/01/18 06:34 MCH 29 pg (27-31) 03/01/18 06:34 MCHC 33 g/dl (31-36) 03/01/18 06:34 RDW 15 % (10.5-15) 03/01/18 06:34 Plt Count 264 10^3/ul (150-450) 03/01/18 06:34 MPV 6.7 um3 (7.4-10.4) L 03/01/18 06:34 Neut % (Auto) 73.9 % (38-83) 03/01/18 06:34 Lymph % (Auto) 11.6 % (25-47) L 03/01/18 06:34 [place] % (Auto) 7.3 % (0-7) H 03/01/18 06:34 Eos % (Auto) 5.9 % (0-6) 03/01/18 06:34 Baso % (Auto) 1.3 % (0-2) 03/01/18 06:34 Absolute Neuts (auto) 5.3 10^3/ul (1.5-7.7) 03/01/18 06:34 Absolute Lymphs (auto) 0.8 10^3/ul (1.0-4.8) L 03/01/18 06:34 Absolute Monos (auto) 0.5 10^3/ul (0-0.8) 03/01/18 06:34 Absolute Eos (auto) 0.4 10^3/ul (0-0.6) 03/01/18 06:34 Absolute Basos (auto) 0.1 10^3/ul (0-0.2) 03/01/18 06:34 Absolute Nucleated RBC 0 10^3/ul 03/01/18 06:34 Nucleated RBC % 0 03/01/18 06:34 ESR 120 mm/Hr (0-40) H 02/24/18 11:21 Eosinophil Smear None seen 02/24/18 13:15 INR (Anticoag Therapy) 1.13 (0.77-1.02) H 02/25/18 07:34 APTT 25.2 seconds (26.0-36.3) L 02/24/18 15:26 Sodium 144 mmol/L (135-145) 03/01/18 06:34 Potassium 4.4 mmol/L (3.5-5.0) 03/01/18 06:34 Chloride 111 mmol/L (101-111) 03/01/18 06:34 Carbon Dioxide 26 mmol/L (22-32) 03/01/18 06:34 Anion Gap 7 mmol/L (2-11) 03/01/18 06:34 BUN 41 mg/dL (6-24) H 03/01/18 06:34 Creatinine 3.11 mg/dL (0.67-1.17) H 03/01/18 06:34 Est GFR ( Amer) 23.9 (>60) 03/01/18 06:34 Est GFR (Non-Af Amer) 19.8 (>60) 03/01/18 06:34 BUN/Creatinine Ratio 13.2 (8-20) 03/01/18 06:34 Glucose 92 mg/dL (70-100) 03/01/18 06:34 POC Glucose (mg/dL) 162 mg/dL (70-100) H 03/01/18 11:23 Calcium 8.4 mg/dL (8.6-10.3) L 03/01/18 06:34 Phosphorus 4.9 mg/dL (2.5-5.0) 02/24/18 11:21 Magnesium 1.8 mg/dL (1.9-2.7) L 02/24/18 11:21 Total Bilirubin 0.30 mg/dL (0.2-1.0) 02/24/18 11:21 AST 17 U/L (13-39) 02/24/18 11:21 ALT 23 U/L (7-52) 02/24/18 11:21 Alkaline Phosphatase 72 U/L (34-104) 02/24/18 11:21 C-Reactive Protein 62.26 mg/L (<8.01) H 02/24/18 11:21 Total Protein 6.4 g/dL (6.4-8.9) 02/24/18 11:21 Albumin 3.2 g/dL (3.2-5.2) 02/24/18 11:21 Globulin 3.2 g/dL (2-4) 02/24/18 11:21 Albumin/Globulin Ratio 1.0 (1-3) 02/24/18 11:21 Urine Color Yellow 02/24/18 13:15 Urine Appearance Clear 02/24/18 13:15 Urine pH 5.0 (5-9) 02/24/18 13:15 Ur Specific [place] 1.013 (1.010-1.030) 02/24/18 13:15 Urine Protein 1+(30 mg/dl) (Negative) A 02/24/18 13:15 Urine Ketones Negative (Negative) 02/24/18 13:15 Urine Blood 2+ (Negative) A 02/24/18 13:15 Urine Nitrate Negative (Negative) 02/24/18 13:15 Urine Bilirubin Negative (Negative) 02/24/18 13:15 Urine Urobilinogen Negative (Negative) 02/24/18 13:15 Ur Leukocyte Esterase Negative (Negative) 02/24/18 13:15 Urine WBC (Auto) Absent (Absent) 02/24/18 13:15 Urine RBC (Auto) Trace(0-2/hpf) (Absent) 02/24/18 13:15 Ur Squamous Epith Cells Present (Absent) A 02/24/18 13:15 Urine Bacteria Absent (Absent) 02/24/18 13:15 Ur Random Creatinine 127.34 mg/dL 02/24/18 13:15 Ur Random Sodium 61 mmol/L 02/24/18 13:15 Urine Glucose 1+(50 mg/dl) (Negative) A 02/24/18 13:15 Random Vancomycin 19.3 mcg/mL 02/28/18 06:05 Objective: Left 3rd toe with dorsal eschar. Mild erythema. Mild edema. No Drainage. Assessment: 72 yo male left 3rd toe osteo/necrosis Plan: Continue IV abx per ID Awaiting improved renal function to proceed with revascularization and left 3rd toe amp. No signs of sepsis
[2018-03-01] MEDS: Ondansetron INJ* 2 MG/ML VIAL IV PRN (16:09)
[2018-03-01] MEDS: Clopidogrel TAB* 75 MG PO SCH (17:08)
--- NOTE | 2018-03-01 17:21 | PN ---
Subjective Date of Service: 03/01/18 Interval History: Patient seen and examined. Seems frustrated that he has not had intervention yet and that he's been on antibiotics with no improvement. Explained that his kidneys are acutely injured and we cannot consider revascularization until renal function improves but I will check with all specialties involved to determine how to proceed. Denies fever or chills, states he felt "lousy" in the am and dizzy which resolved. He was able to walk 3 times around the unit without being dizzy. Objective Active Medications: Acetaminophen (Tylenol Tab*) 650 mg PO Q4H PRN PRN Reason: PAIN Acetaminophen/Codeine Phosphate (Tylenol/Codeine 30 Mg Tab*) 1 tab PO Q6H PRN PRN Reason: PAIN Last Admin: 02/28/18 21:06 Dose: 1 tab Amlodipine Besylate (Norvasc Tab*) 10 mg PO DAILY [facility] Last Admin: 03/01/18 08:18 Dose: 10 mg Aspirin (Aspirin Ec Tab*) 81 mg PO DAILY [facility] Last Admin: 03/01/18 08:18 Dose: 81 mg Atorvastatin Calcium (Lipitor*) 80 mg PO DAILY [facility] Last Admin: 03/01/18 08:17 Dose: 80 mg Clopidogrel Bisulfate (Plavix Tab*) 75 mg PO 1845 [facility] Last Admin: 03/01/18 17:08 Dose: 75 mg Dextrose (D50w Syringe 50 Ml*) 12.5 gm IV PUSH .FOR FS < 60 - SS PRN PRN Reason: FS < 60 Gemfibrozil (Lopid Tab*) 300 mg PO BID [facility] Last Admin: 03/01/18 08:17 Dose: 300 mg Heparin Sodium (Porcine) (Heparin Vial(*)) 5,000 units SUBCUT Q8HR [facility] Last Admin: 03/01/18 13:07 Dose: 5,000 units Hydralazine HCl (Apresoline Iv*) 5 mg IV SLOW PU Q6H PRN PRN Reason: SBP > 180 Vancomycin HCl 750 mg/ Sodium (Chloride) 250 mls @ 166.667 mls/hr IVPB Q24H [facility] Last Admin: 03/01/18 11:22 Dose: 166.667 mls/hr Insulin Glargine (Lantus(*)) 50 units SUBCUT DAILY [facility] Last Admin: 03/01/18 08:18 Dose: 50 units Insulin Human Lispro (Humalog*) 0 units SUBCUT AC [facility]; Protocol Last Admin: 03/01/18 16:13 Dose: Not Given Metoprolol Succinate (Toprol Xl Tab*) 50 mg PO DAILY [facility] Last Admin: 03/01/18 08:17 Dose: 50 mg Morphine Sulfate (Morphine Inj ((Syringe))*) 2 mg IV Q4H PRN PRN Reason: PAIN Last Admin: 02/26/18 05:27 Dose: 2 mg Ondansetron HCl (Zofran Inj*) 4 mg IV Q6H PRN PRN Reason: NAUSEA Last Admin: 03/01/18 16:09 Dose: 4 mg Pantoprazole Sodium (Protonix Tab (Nf)) 40 mg PO DAILY [facility] Last Admin: 03/01/18 11:23 Dose: 40 mg Pharmacy Consult (Vancomycin Per Pharmacy*) 1 note FOLLOW UP . PRN PRN Reason: PER PROTOCOL Pharmacy Profile Note (Vancomycin Trough Check) 1 note FOLLOW UP 1100 ONE Stop: 03/02/18 11:01 Vital Signs - 8 hr 03/01/18 03/01/18 11:30 15:24 Temperature 98.1 F 98.5 F Pulse Rate 66 58 Respiratory 18 16 Rate Blood Pressure 156/63 150/61 (mmHg) O2 Sat by Pulse 92 95 Oximetry Oxygen Devices in Use Now: None Appearance: alert, NAD Eyes: No Scleral Icterus, PERRLA Ears/Nose/Mouth/Throat: NL Teeth, Lips, Gums, Mucous Membranes Moist Neck: NL Appearance and Movements; NL JVP, Trachea Midline Respiratory: Symmetrical Chest Expansion and Respiratory Effort, Clear to Auscultation Cardiovascular: NL Sounds; No Murmurs; No JVD, No Edema Abdominal: NL Sounds; No Tenderness; No Distention Extremities: - - LLE with edema and necrosis to third toe Neurological: Alert and Oriented x 3 Nutrition: Taking PO's Result Diagrams: 03/01/18 06:34 03/01/18 06:34 Microbiology and Other Data: Microbiology 02/24/18 15:26 Aerobic Blood Culture - Final Blood Venous No Growth Day 5 Anaerobic Blood Culture - Final No Growth Day 5 02/24/18 21:30 Aerobic Blood Culture - Preliminary Blood Venous No Growth Day 4 Anaerobic Blood Culture - Preliminary No Growth Day 4 Diagnostic Imaging: Patient Name: ABDIFATAH EL JR Medical Record#: [id number] Ordering Physician: Blanca TRAORE Acct.#: [id number] : 1945 Age: 72 Sex: M Location: [address] [place] [address] MEDICAL/TELEMETRY Exam Date: 02/24/18 152 ADM Status: ADM IN Order Information: MRI LOWER EXTREMITY LEFT W/O Accession Number: [id number] CPT: 46041 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 TECHNIQUE: Axial, sagittal and coronal T1 and T2-weighted images of the left foot were obtained. FINDINGS: Unless otherwise specified comparisons below reference T February 11, 2018 MRI of the foot. The visualized bones are appropriately aligned. There is worsening T2 bright signal in the soft tissues overlying the forefoot most severely a surrounding the distal third metatarsal and third digit. For example there is a focus of fluid bright signal measuring just under 1 cm immediately dorsal to the head of the third metatarsal (series 6 image 16). Of greater concern is the increased T2 signal seen at the distal head of the third metatarsal that has progressed when compared to the previous MRI of the foot ( series 8 image 11 and series 6 image 15). On the corresponding T1-weighted imaging there is mild loss of normal bright medullary signal although the cortex appears to be preserved. The lesser extent there is similar T2 bright signal at the head of the second metatarsal that appears worse when compared to the previous MRI though is not as far advanced as the third metatarsal. Again seen is increased T2 signal of the proximal phalanx of the third digit though there is no dramatic loss of T1 weighted signal at the same location similar to the prior MRI of the foot. IMPRESSION: OVERALL THERE IS WORSENING APPEARANCE OF INFLAMMATORY CHANGE INVOLVING THE LEFT FOREFOOT. THE SOFT TISSUES DORSAL TO THE HEAD OF THE THIRD METATARSAL ARE MOST SEVERELY AFFECTED WHERE THERE APPEARS TO BE NOW A SMALL FLUID OR PHLEGMONOUS COLLECTION. ALSO PROGRESSED RELATIVE TO THE FEBRUARY 11, 2018 MRI OF THE FOOT IS INCREASED FLUID SIGNAL AT THE HEAD OF THE THIRD METATARSAL WITH MILD LOSS OF NORMAL T1 SIGNAL ON THE T1- WEIGHTED IMAGING. ALTHOUGH THE CORTEX APPEARS TO BE PRESERVED THIS APPEARANCE COULD BE CONSISTENT WITH OSTEOMYELITIS. REACTIVE CHANGE OF BONE NEIGHBORING A SOFT TISSUE INFECTION IS ALSO CONSIDERED ON THE DIFFERENTIAL. <Electronically signed by Hamlet Cosby MD in [place]> 02/24/181656 Dictated By: Hamlet Cosby MD Dictated Date/Time: 02/24/181656 Transcribed Date/Time: 02/24/181636 This report is only to be considered final once signed by the Provider(s) as displayed in the "<Electronically Signed by >" field (s). Absence of a signature indicates the report is in a draft status and still needs to be finalized. In the event this document was created by someone other than the signing Provider, the individual initiating the document will be listed in the "Entered by:" or "Dictated by:" robert. 1 of 2 Assess/Plan/Problems-Billing Assessment: Mr. El is a 72 y/o male patient with a PMH of who was admitted on with worsening renal failure and worsening left third toe infection with osteomyelitis, found to have a mobile plaque on echo and hydronephrosis with small calculi. - Patient Problems (1) Osteomyelitis Code(s): M86.9 - OSTEOMYELITIS, UNSPECIFIED SNOMED Code(s): 41759956 Comment: - No signs of sepsis, clinically improving. - Appreciate Ortho and ID consults. - Plan to omptimize kidney function and pursue revascularization with Dr. Cosby prior to surgery with Dr. Culp. - Continue vancomycin. (2) ARF (acute renal failure) Comment: - Acute on chronic kidney disease, creatinine at 3.11, not much improvement from yesterday - FeNa 1.8; suspect cause is multifactorial as patient was on hctz, lisinopril , torsemide and NSAID in setting of DM and infection with obstructing calculus and hydronephrosis and dye from CT scan - Hyperkalemia resolved. (3) Anemia Code(s): D64.9 - ANEMIA, UNSPECIFIED SNOMED Code(s): 646056152 Comment: - Stable, normocytic anemia, suspect anemia of chronic disease and CKD (4) Atherosclerotic plaque Code(s): I70.90 - UNSPECIFIED ATHEROSCLEROSIS SNOMED Code(s): 68504708 Comment: - Noted small plaque on echo. - Appreciate cardiology consult. Plan for plavix, asa, statin. - Blood cultures with no growth to date. (5) Hydronephrosis Code(s): N13.30 - UNSPECIFIED HYDRONEPHROSIS SNOMED Code(s): 74379792 Comment: - Ureteral stent placed by Dr. Hua with removal of obstructing calculus. - No post obstructive diuresis observed. (6) HTN (hypertension) Code(s): I10 - ESSENTIAL (PRIMARY) HYPERTENSION SNOMED Code(s): 74699731 Comment: - SBP 140-160s. - Continue increased metoprolol and increased amlodipine. Hydralazine prn added. - Continue to hold nephro toxic medications (7) Type 2 diabetes mellitus Comment: - BG slightly elevated. - Continue lispro and increase lantus. - Metformin DC'd would not recommend restarting given ARF (8) DVT prophylaxis Code(s): EHA7828 - SNOMED Code(s): 902088662 Comment: - SQ heparin (9) Full code status Code(s): Z78.9 - OTHER SPECIFIED HEALTH STATUS SNOMED Code(s): 004670363 Comment: Status and Disposition: Remain inpatient, dispo will depend on procedures and patient's post op course.
[2018-03-01] MEDS ORDERED: PROCHLORPERAZINE INJ 5 MG/ML 2 ML VIAL IV PRN (20:45)
[2018-03-01] MEDS: Acetaminop/Codeine 30 MG TAB* 1 TAB (300 MG/30 MG) PO PRN (21:44)
[2018-03-01] MEDS ORDERED: hydrALAZINE IV* 20 MG/ML VIAL IV SLOW PU PRN (23:39)
[2018-03-01] MEDS ORDERED: hydrALAZINE IV* 20 MG/ML VIAL ONE (23:41)
[2018-03-02] MEDS: Heparin VIAL(*) 5000 UNITS/ML VIAL (FIVE THOUSAND) SUBCUT SCH ×2 (05:52→14:14)
[2018-03-02] MEDS: Gemfibrozil TAB* 600 MG PO SCH (07:39)
[2018-03-02] MEDS: amLODIPine TAB* 5 MG PO SCH (07:40)
[2018-03-02] MEDS: Metoprolol Succinate XL TAB* 50 MG PO SCH (07:40)
[2018-03-02] MEDS: Aspirin EC TAB* 81 MG TAB.EC PO SCH (07:40)
[2018-03-02] MEDS: CMCS: Pantoprazole TAB (NF) 40 MG TAB PO SCH (07:41)
[2018-03-02] MEDS: Acetaminop/Codeine 30 MG TAB* 1 TAB (300 MG/30 MG) PO PRN (07:41)
[2018-03-02] MEDS: Insulin GLARGINE(*) 1 UNITS UNIT SUBCUT SCH (07:42)
[2018-03-02] MEDS: Ondansetron INJ* 2 MG/ML VIAL IV PRN (07:42)
[2018-03-02] MEDS: Insulin LISPRO* 1 UNITS UNIT SUBCUT SCH ×2 (08:13→14:14)
[2018-03-02] MEDS: Atorvastatin* 80 MG TAB PO SCH (09:06)
[2018-03-02 09:24] LABS: ABS Basophils 0.2 10^3/ul (0-0.2); ABS Eosinophils 0.5 10^3/ul (0-0.6); ABS Lymphocytes 0.9 10^3/ul (1.0-4.8); ABS Monocytes 0.7 10^3/ul (0-0.8); ABS Neutrophils 6.8 10^3/ul (1.5-7.7); ABS Nucleated RBC 0 10^3/ul; Hematocrit 32 % (42-52); Hemoglobin 10.8 g/dl (14.0-18.0); Lymphocyte % 10.3 % (25-47); Mean Corpuscular HGB Conc 34 g/dl (31-36); Mean Corpuscular Hemoglobin 29 pg (27-31); Mean Corpuscular Volume 87 fL (80-94); Mean Platelet Volume 6.7 um3 (7.4-10.4); Nucleated Red Blood Cells % 0; Platelet Count 322 10^3/ul (150-450); Red Blood Count 3.67 10^6/ul (4.00-5.40); Red Cell Distribution Width 15 % (10.5-15)
[2018-03-02 09:56] LABS: EGFR Non-African American 21.1 (>60)
[2018-03-02] MEDS ORDERED: Vancomycin Trough Check NOTE FOLLOW UP ONE (11:00)
[2018-03-02] MEDS: Vancomycin(*) 750 MG in NS 0.9% 250 ML* 250 ML IVPB SCH (11:25)
--- NOTE | 2018-03-02 11:47 | PN ---
Subjective Date of Service: 03/02/18 Interval History: Patient seen and examined. States he felt SOB last night, no distress noted, however he appears despondent today and continues to be upset about his situation. States no pain in the left foot, no current SOB, denies chest pain, no fever or chills. Objective Active Medications: Acetaminophen (Tylenol Tab*) 650 mg PO Q4H PRN PRN Reason: PAIN Acetaminophen/Codeine Phosphate (Tylenol/Codeine 30 Mg Tab*) 1 tab PO Q6H PRN PRN Reason: PAIN Last Admin: 03/02/18 07:41 Dose: 1 tab Amlodipine Besylate (Norvasc Tab*) 10 mg PO DAILY [facility] Last Admin: 03/02/18 07:40 Dose: 10 mg Aspirin (Aspirin Ec Tab*) 81 mg PO DAILY [facility] Last Admin: 03/02/18 07:40 Dose: 81 mg Atorvastatin Calcium (Lipitor*) 80 mg PO DAILY [facility] Last Admin: 03/02/18 09:06 Dose: 80 mg Clopidogrel Bisulfate (Plavix Tab*) 75 mg PO 1845 [facility] Last Admin: 03/01/18 17:08 Dose: 75 mg Dextrose (D50w Syringe 50 Ml*) 12.5 gm IV PUSH .FOR FS < 60 - SS PRN PRN Reason: FS < 60 Gemfibrozil (Lopid Tab*) 300 mg PO BID [facility] Last Admin: 03/02/18 07:39 Dose: 300 mg Heparin Sodium (Porcine) (Heparin Vial(*)) 5,000 units SUBCUT Q8HR [facility] Last Admin: 03/02/18 05:52 Dose: Not Given Hydralazine HCl (Apresoline Iv*) 10 mg IV SLOW PU Q6H PRN PRN Reason: SBP > 180 Last Admin: 03/01/18 23:44 Dose: 10 mg Vancomycin HCl 750 mg/ Sodium (Chloride) 250 mls @ 166.667 mls/hr IVPB Q24H [facility] Last Admin: 03/02/18 11:25 Dose: 166.667 mls/hr Insulin Glargine (Lantus(*)) 50 units SUBCUT DAILY [facility] Last Admin: 03/02/18 07:42 Dose: 50 units Insulin Human Lispro (Humalog*) 0 units SUBCUT AC [facility]; Protocol Last Admin: 03/02/18 08:13 Dose: Not Given Metoprolol Succinate (Toprol Xl Tab*) 50 mg PO DAILY [facility] Last Admin: 03/02/18 07:40 Dose: 50 mg Morphine Sulfate (Morphine Inj ((Syringe))*) 2 mg IV Q4H PRN PRN Reason: PAIN Last Admin: 02/26/18 05:27 Dose: 2 mg Ondansetron HCl (Zofran Inj*) 4 mg IV Q6H PRN PRN Reason: NAUSEA Last Admin: 03/02/18 07:42 Dose: 4 mg Pantoprazole Sodium (Protonix Tab (Nf)) 40 mg PO DAILY [facility] Last Admin: 03/02/18 07:41 Dose: 40 mg Pharmacy Consult (Vancomycin Per Pharmacy*) 1 note FOLLOW UP . PRN PRN Reason: PER PROTOCOL Pharmacy Profile Note (Vancomycin Trough Check) 1 note FOLLOW UP 1100 ONE Stop: 03/05/18 11:01 Prochlorperazine Edisylate (Compazine Inj*) 5 mg IV Q6H PRN PRN Reason: NAUSEA/VOMITING Last Admin: 03/01/18 21:00 Dose: 5 mg Vital Signs - 8 hr 03/02/18 03/02/18 03/02/18 07:17 07:41 08:00 Temperature 98.1 F Pulse Rate 59 Respiratory 17 20 20 Rate Blood Pressure 153/66 (mmHg) O2 Sat by Pulse 94 Oximetry Oxygen Devices in Use Now: Nasal Cannula Appearance: Alert, flat affect Eyes: No Scleral Icterus, PERRLA Ears/Nose/Mouth/Throat: Clear Oropharnyx, Mucous Membranes Moist Neck: NL Appearance and Movements; NL JVP, Trachea Midline Respiratory: Symmetrical Chest Expansion and Respiratory Effort, Clear to Auscultation Cardiovascular: NL Sounds; No Murmurs; No JVD, - - edema to LLE Abdominal: NL Sounds; No Tenderness; No Distention Extremities: - - Left foot dressed/bandaged, CDI Skin: - - ulcerated necrotic left third toe Neurological: Alert and Oriented x 3, NL Muscle Strength and Tone Nutrition: Taking PO's Result Diagrams: 03/02/18 09:14 03/02/18 09:14 Microbiology and Other Data: Microbiology 02/24/18 15:26 Aerobic Blood Culture - Final Blood Venous No Growth Day 5 Anaerobic Blood Culture - Final No Growth Day 5 02/24/18 21:30 Aerobic Blood Culture - Preliminary Blood Venous No Growth Day 4 Anaerobic Blood Culture - Preliminary No Growth Day 4 Diagnostic Imaging: Patient Name: ADBIFATAH EL JR Medical Record#: [id number] Ordering Physician: Blanca TRAORE Acct.#: [id number] : 1945 Age: 72 Sex: M Location: [address] [place] [address] MEDICAL/TELEMETRY Exam Date: 02/24/18 1521 ADM Status: ADM IN Order Information: MRI LOWER EXTREMITY LEFT W/O Accession Number: [id number] CPT: 21860 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 TECHNIQUE: Axial, sagittal and coronal T1 and T2-weighted images of the left foot were obtained. FINDINGS: Unless otherwise specified comparisons below reference T February 11, 2018 MRI of the foot. The visualized bones are appropriately aligned. There is worsening T2 bright signal in the soft tissues overlying the forefoot most severely a surrounding the distal third metatarsal and third digit. For example there is a focus of fluid bright signal measuring just under 1 cm immediately dorsal to the head of the third metatarsal (series 6 image 16). Of greater concern is the increased T2 signal seen at the distal head of the third metatarsal that has progressed when compared to the previous MRI of the foot ( series 8 image 11 and series 6 image 15). On the corresponding T1-weighted imaging there is mild loss of normal bright medullary signal although the cortex appears to be preserved. The lesser extent there is similar T2 bright signal at the head of the second metatarsal that appears worse when compared to the previous MRI though is not as far advanced as the third metatarsal. Again seen is increased T2 signal of the proximal phalanx of the third digit though there is no dramatic loss of T1 weighted signal at the same location similar to the prior MRI of the foot. IMPRESSION: OVERALL THERE IS WORSENING APPEARANCE OF INFLAMMATORY CHANGE INVOLVING THE LEFT FOREFOOT. THE SOFT TISSUES DORSAL TO THE HEAD OF THE THIRD METATARSAL ARE MOST SEVERELY AFFECTED WHERE THERE APPEARS TO BE NOW A SMALL FLUID OR PHLEGMONOUS COLLECTION. ALSO PROGRESSED RELATIVE TO THE FEBRUARY 11, 2018 MRI OF THE FOOT IS INCREASED FLUID SIGNAL AT THE HEAD OF THE THIRD METATARSAL WITH MILD LOSS OF NORMAL T1 SIGNAL ON THE T1- WEIGHTED IMAGING. ALTHOUGH THE CORTEX APPEARS TO BE PRESERVED THIS APPEARANCE COULD BE CONSISTENT WITH OSTEOMYELITIS. REACTIVE CHANGE OF BONE NEIGHBORING A SOFT TISSUE INFECTION IS ALSO CONSIDERED ON THE DIFFERENTIAL. <Electronically signed by Hamlet Cosby MD in [place]> 02/24/181656 Dictated By: Hamlet oCsby MD Dictated Date/Time: 02/24/181656 Transcribed Date/Time: 02/24/181636 This report is only to be considered final once signed by the Provider(s) as displayed in the "<Electronically Signed by >" field (s). Absence of a signature indicates the report is in a draft status and still needs to be finalized. In the event this document was created by someone other than the signing Provider, the individual initiating the document will be listed in the "Entered by:" or "Dictated by:" robert. 1 of 2 Patient Name: ABDIFATAH EL JR Medical Record#: [id number] Ordering Physician: Jl Yanes MD Acct.#: [id number] : 1945 Age: 72 Sex: M Location: [address] [place] [address] - MEDICAL Exam Date: 02/25/18929 ADM Status: ADM IN Order Information: VL LOWER EXT ART DUPLEX LEFT Accession Number: [id number] CPT: 83916 INDICATION: Worsening left forefoot wound with possible osteomyelitis. COMPARISON: CTA abdominal aorta with runoff dated February 11, 2018. The patient has advanced calcified atherosclerosis which limits evaluation of much of the vasculature, particularly the infrapopliteal arteries. TECHNIQUE: White scale, color Doppler, and spectral analysis utilized to image the left lower extremity arteries. Flow velocities were determined at each visualized artery. REPORT: Overall there is in-line flow recorded from the common femoral artery as far as the distal posterior tibial artery and dorsalis pedis artery. At the proximal/mid left superficial femoral artery there is coarse atherosclerotic calcification including a mobile focus of calcium that appears to be "flapping" during systole. Elevated velocities are recorded at the superficial femoral artery proximally measuring as high as 299 cm/s. More inferiorly there is mild elevation at the proximal posterior tibial artery of 105 cm/s and the mid-level anterior tibial artery at 97 cm/s. Coarse calcification is documented throughout much of the arterial vasculature. IMPRESSION: As was documented on the prior CTA there is diffuse and coarsely calcified vasculopathy and all arteries of the left lower extremity. Elevated velocities at the proximal and mid superficial femoral artery correlate to approximately 50% degree stenosis. Foci of increased velocity at the posterior tibial and anterior tibial arteries indicate stenoses in these vessels as well although in-line flow is documented as far as the mid foot dorsalis pedis artery. Mean Arterial diameter and Peak Systolic Flow Velocities Artery Diameter SD (cm) Velocity SD (cm/sec) Ext. Iliac 0.79 +/- 0.13 119.3 +/- 21.7 Common Femoral 0.82 +/- 0.14 114.1 +/- 24.9 Superficial Femoral (Prox.) 0.60 +/- 0.12 90.8 +/- 13.6 Superficial Femoral (Dist.) 0.54 +/- 0.11 93.6 +/- 14.1 Popliteal 0.52 +/- 0.11 68.8 +/- 13.5 Adapted from [employer] Introduction to Vascular Sonography 5th ed. This report is only to be considered final once signed by the Provider(s) as displayed in the "<Electronically Signed by >" field (s). Absence of a signature indicates the report is in a draft status and still needs to be finalized. In the event this document was created by someone other than the signing Provider, the individual initiating the document will be listed in the "Entered by:" or "Dictated by:" robert. 1 of 2 Assess/Plan/Problems-Billing Assessment: Mr. El is a 72 y/o male patient with a H of who was admitted with worsening renal failure and worsening left third toe infection with osteomyelitis, found to have a mobile plaque on echo and hydronephrosis with small calculi, with persistent AYDEN on CKD. - Patient Problems (1) Osteomyelitis Code(s): M86.9 - OSTEOMYELITIS, UNSPECIFIED SNOMED Code(s): 49434113 Comment: - Non-toxic appearing, no sepsis - Per ID, continue vancomycin - Ortho following, needs amputation but prognosis for healing is poor if arterial supply cannot be restored (2) PAD (peripheral artery disease) Code(s): I73.9 - PERIPHERAL VASCULAR DISEASE, UNSPECIFIED SNOMED Code(s): 758259071 Comment: - Per vascular studies as above patient has severe calcified vasculopathy of all arteries of the left lower extremity - Given AYEDN on CKD with no improvement in renal function, it is unlikely that we can effectively revascularize in the IR lab - Discussed with Dr. Batista that patient would be better served in a facility that can do a surgical bypass to revascularize and minimize further kidney damage. Orthopedics can amputate the third toe but healing would impaired without revascularization. (3) ARF (acute renal failure) Comment: - AYDEN 2/2 nephrotoxic medications and contrast dye - AYDEN on CKD with flat renal function last three days - creat 2.96 again today , not much improvement (baseline is around 1.1) (4) Anemia Code(s): D64.9 - ANEMIA, UNSPECIFIED SNOMED Code(s): 995438576 Comment: - Stable, normocytic anemia, suspect anemia of chronic disease and CKD (5) Atherosclerotic plaque Code(s): I70.90 - UNSPECIFIED ATHEROSCLEROSIS SNOMED Code(s): 55663242 Comment: - Noted small plaque on echo. - Appreciate cardiology consult. Continue plavix, asa, statin. - Blood cultures with no growth to date. (6) Hydronephrosis Code(s): N13.30 - UNSPECIFIED HYDRONEPHROSIS SNOMED Code(s): 52011926 Comment: - Ureteral stent placed by Dr. Hua with removal of obstructing calculus. - No post obstructive diuresis observed. (7) HTN (hypertension) Code(s): I10 - ESSENTIAL (PRIMARY) HYPERTENSION SNOMED Code(s): 75183243 Comment: - SBP 140-160s. - Continue increased metoprolol and increased amlodipine. Hydralazine prn added. - Continue to hold nephro toxic medications (8) Type 2 diabetes mellitus Comment: - BG slightly elevated. - Continue lispro and increase lantus. - Metformin DC'd would not recommend restarting given ARF (9) DVT prophylaxis Code(s): ABJ1864 - SNOMED Code(s): 118554434 Comment: - SQ heparin (10) Full code status Code(s): Z78.9 - OTHER SPECIFIED HEALTH STATUS SNOMED Code(s): 510298749 Comment: Status and Disposition: Call out to Transfer Center to contact [facility] for potential transfer [facility] for vascular surgical consultation and further renal and ortho care.
--- NOTE | 2018-03-02 12:23 | PN ---
Progress Note - Progress Note Date of Service: 03/02/18 SOAP: Subjective: []Patient seen at beside. He is well appearing, NAD. Denies feeling of fever or chills. Objective: [] General: Well appearing, NAD LLE: Left 3rd toe with dorsal eschar roughly 3x1 cm. No erythema, edema or drainage. Assessment: 72 yo male left 3rd toe osteo/necrosis Plan: Continue IV abx per ID Due to lack of adequate improvement of renal function, unable to perform revascularization at this facility No signs of sepsis. Likely amputation of left third digit can wait until vascular status improved unless patient becomes systemically ill, infection worsens locally. Vital Signs Temp 97.7 F 03/02/18 11:22 Pulse 60 03/02/18 11:22 Resp 18 03/02/18 12:19 BP 139/59 03/02/18 11:22 Pulse Ox 94 03/02/18 11:22 Intake & Output 03/01/18 03/02/18 03/02/18 18:59 06:59 18:59 Intake Total 990 530 240 Output Total 830 900 200 Balance 160 -370 40 Intake: IV Fluids 10 NS (0.9%) 10 IVPB 40 NS (0.9%) 40 Oral 990 480 240 Output: Urine 830 900 200 Other: Estimated Void Small Small Date of Last Bowel 03/01/18 Movement # Bowel Movements 0 Estimated Stool Amount Small # Voids 3 Laboratory Last Values WBC 9.0 10^3/ul (3.5-10.8) 03/02/18 09:14 RBC 3.67 10^6/ul (4.00-5.40) L 03/02/18 09:14 Hgb 10.8 g/dl (14.0-18.0) L 03/02/18 09:14 Hct 32 % (42-52) L 03/02/18 09:14 MCV 87 fL (80-94) 03/02/18 09:14 MCH 29 pg (27-31) 03/02/18 09:14 MCHC 34 g/dl (31-36) 03/02/18 09:14 RDW 15 % (10.5-15) 03/02/18 09:14 Plt Count 322 10^3/ul (150-450) 03/02/18 09:14 MPV 6.7 um3 (7.4-10.4) L 03/02/18 09:14 Neut % (Auto) 74.9 % (38-83) 03/02/18 09:14 Lymph % (Auto) 10.3 % (25-47) L 03/02/18 09:14 [place] % (Auto) 7.2 % (0-7) H 03/02/18 09:14 Eos % (Auto) 5.0 % (0-6) 03/02/18 09:14 Baso % (Auto) 2.6 % (0-2) H 03/02/18 09:14 Absolute Neuts (auto) 6.8 10^3/ul (1.5-7.7) 03/02/18 09:14 Absolute Lymphs (auto) 0.9 10^3/ul (1.0-4.8) L 03/02/18 09:14 Absolute Monos (auto) 0.7 10^3/ul (0-0.8) 03/02/18 09:14 Absolute Eos (auto) 0.5 10^3/ul (0-0.6) 03/02/18 09:14 Absolute Basos (auto) 0.2 10^3/ul (0-0.2) 03/02/18 09:14 Absolute Nucleated RBC 0 10^3/ul 03/02/18 09:14 Nucleated RBC % 0 03/02/18 09:14 ESR 120 mm/Hr (0-40) H 02/24/18 11:21 Eosinophil Smear None seen 02/24/18 13:15 INR (Anticoag Therapy) 1.13 (0.77-1.02) H 02/25/18 07:34 APTT 25.2 seconds (26.0-36.3) L 02/24/18 15:26 Sodium 144 mmol/L (135-145) 03/02/18 09:14 Potassium 4.5 mmol/L (3.5-5.0) 03/02/18 09:14 Chloride 110 mmol/L (101-111) 03/02/18 09:14 Carbon Dioxide 27 mmol/L (22-32) 03/02/18 09:14 Anion Gap 7 mmol/L (2-11) 03/02/18 09:14 BUN 39 mg/dL (6-24) H 03/02/18 09:14 Creatinine 2.94 mg/dL (0.67-1.17) H 03/02/18 09:14 Est GFR ( Amer) 25.5 (>60) 03/02/18 09:14 Est GFR (Non-Af Amer) 21.1 (>60) 03/02/18 09:14 BUN/Creatinine Ratio 13.3 (8-20) 03/02/18 09:14 Glucose 108 mg/dL (70-100) H 03/02/18 09:14 POC Glucose (mg/dL) 175 mg/dL (70-100) H 03/02/18 11:32 Calcium 9.1 mg/dL (8.6-10.3) 03/02/18 09:14 Phosphorus 4.9 mg/dL (2.5-5.0) 02/24/18 11:21 Magnesium 1.8 mg/dL (1.9-2.7) L 02/24/18 11:21 Total Bilirubin 0.40 mg/dL (0.2-1.0) 03/02/18 09:14 AST 12 U/L (13-39) L 03/02/18 09:14 ALT 17 U/L (7-52) 03/02/18 09:14 Alkaline Phosphatase 94 U/L (34-104) 03/02/18 09:14 C-Reactive Protein 62.26 mg/L (<8.01) H 02/24/18 11:21 Total Protein 6.7 g/dL (6.4-8.9) 03/02/18 09:14 Albumin 3.2 g/dL (3.2-5.2) 03/02/18 09:14 Globulin 3.5 g/dL (2-4) 03/02/18 09:14 Albumin/Globulin Ratio 0.9 (1-3) L 03/02/18 09:14 Urine Color Yellow 02/24/18 13:15 Urine Appearance Clear 02/24/18 13:15 Urine pH 5.0 (5-9) 02/24/18 13:15 Ur Specific [place] 1.013 (1.010-1.030) 02/24/18 13:15 Urine Protein 1+(30 mg/dl) (Negative) A 02/24/18 13:15 Urine Ketones Negative (Negative) 02/24/18 13:15 Urine Blood 2+ (Negative) A 02/24/18 13:15 Urine Nitrate Negative (Negative) 02/24/18 13:15 Urine Bilirubin Negative (Negative) 02/24/18 13:15 Urine Urobilinogen Negative (Negative) 02/24/18 13:15 Ur Leukocyte Esterase Negative (Negative) 02/24/18 13:15 Urine WBC (Auto) Absent (Absent) 02/24/18 13:15 Urine RBC (Auto) Trace(0-2/hpf) (Absent) 02/24/18 13:15 Ur Squamous Epith Cells Present (Absent) A 02/24/18 13:15 Urine Bacteria Absent (Absent) 02/24/18 13:15 Ur Random Creatinine 127.34 mg/dL 02/24/18 13:15 Ur Random Sodium 61 mmol/L 02/24/18 13:15 Urine Glucose 1+(50 mg/dl) (Negative) A 02/24/18 13:15 Vancomycin Trough 15.5 mcg/mL 03/02/18 09:13 Random Vancomycin 19.3 mcg/mL 02/28/18 06:05
[2018-03-02 16:39] VITALS: BP 144/59
--- NOTE | 2018-03-02 16:56 | TRS ---
AMENDED REPORT NOW INCLUDES COSIGNER DESIGNATION - ESIGNED BEFORE ADJUSTMENTS CC: Dr. Priya Brooks; Dr. Jesu Fraire, Orthopedics; Dr. Jl Yanes, Infectious Disease; Dr. Neal Batista, Nephrology * DATE OF ADMISSION: 02/24/2018. DATE OF TRANSFER: 03/02/2018. ATTENDING PHYSICIAN FOR THIS ADMISSION: Dr. Alex Mendez. MY ATTENDING PHYSICIAN FOR TODAY: Dr. Candido Sloan * (dictated by Colton Louis, ADDIE). HOSPITAL COURSE: This is a 72-year-old male patient who has had a very complicated course of infection with the left third toe. He was being treated for osteomyelitis with outpatient infusion and antibiotics since 02/11/2018. The patient states that he has had ongoing issues with this foot for several months now and has had many complications since November. The patient was initially admitted last month for his osteomyelitis. At that point, he was discharged out on antibiotics. The patient was not doing well and had some interval changes on his toe and was not feeling well, was getting fatigued. At that point, he had gone to see Dr. Yanes in this office to have his toe re- evaluated. Dr. Yanes noted on that date that the area of necrosis had become larger and the patient was not responding to his long-term antibiotic therapy. Also, his creatinine had increased from the time that he had been discharged from the hospital previously and was almost 5 on the day of admission. Dr. Yanes referred the patient immediately to the emergency department for the management of his acute renal failure, management of the osteomyelitis involving Orthopedics and Nephrology at that point. The patient then was admitted and continued on Vancomycin. Nephrotoxic medications were discontinued and the patient underwent some imaging of the abdomen and pelvis to visualize his kidneys and bladder and ureters. It was noted on the abdomen and pelvis CT that he had a 4 mm calculus in the distal left ureter with a mild degree of hydronephrosis and hydroureter. The patient was seen by the urologist , and he underwent a cystoscopy and lithotripsy on the first february with Dr. Jamal Hua who successfully placed a [place] catheter after cystoscopy to relieve his hydronephrosis. It is also considered that at the time he had a CTA with run off of his arteries the month before that not only did the hydronephrosis cause a nephropathy, he also had a contrast induced nephropathy and then also nephrotoxic medications that have likely all contributed to his acute on chronic renal failure. He was seen by Orthopedics who recommended amputation of the third toe of the left foot; however, without having proper circulation, Orthopedics felt that revascularization was in order. He underwent additional imaging of duplex scan of the lower extremities to evaluate his vasculature which confirmed severe vasculopathy. There is diffuse and coarsely calcified vasculopathy in all the arteries of the left lower extremity, anywhere from 40 to 50 percent stenosis. We continued watchful waiting in terms of the patient's renal function coming back to baseline. He did receive aggressive fluid management; however, his renal function has plateaued over the last three days and is still hovering around the 3 robyn, as he was 2.96 today on his creatinine. I reached out to Dr. Neal Batista of Nephrology because we are at an impasse with this patient now, unable to revascularize because of his compromised renal function, also unable to amputate because he does not have enough arterial supply. At this point, it was felt that we should sent the patient to a tertiary care facility where a vascular surgeon can evaluate to see if they can address the circulatory issue, as well as manage the renal function. Our Nephrology service will not be available after next week as Dr. Batista will be out on leave for the next month, so at this point we are not able to care for the patient's renal function and vascularize and continue to try to save the patient's foot at this point. I reached out to [facility]. They are accepting the patient under the Hospitalist service by Dr. Saeed, room 922-1. The patient is medically stable for discharge. REVIEW OF SYSTEMS: On the day of discharge, he denies any fever, fatigue, or chills. No headache, no shortness of breath. No chest pain, no abdominal pain. No nausea, no vomiting. No urinary complaints. No arthralgias. He does have some pain in the left calf with ambulation in the form of claudication, but no further complaints noted. PHYSICAL EXAMINATION: General: The patient is well-appearing, appears to be his stated age. No acute distress. Vital signs: Blood pressure 139/59, heart rate 60, regular sinus rhythm on telemetry, respiratory rate 18, O2 saturation 94 percent on room air with a temperature of 97.7. HEENT: The patient is atraumatic, normocephalic. PERRLA with nonicteric sclerae. Neck: Supple, nontender. No JVD noted and no carotid bruit auscultated. Cardiovascular: S1 , S2 present. Rate and rhythm are regular. No murmurs, gallops or rubs noted. Lungs: Clear bilaterally to auscultation with no wheezing, rhonchi, or rales. Abdomen: Soft, nontender, nondistended. Positive bowel sounds all four quadrants. : Deferred. Musculoskeletal: There is no clubbing, no cyanosis. He had edema and some erythema from the mid foot on the dorsal aspect and the forefoot, also at the base of the third toe. He has some necrotic tissue on the dorsal aspect of the toe. There is no exudate noted, no puss noted, and no odor. He does have good range of motion with good dorsiflexion. He does not have any palpable dorsalis pedal pulse, and also posterior tibial pulse are only auscultated with a Doppler. Otherwise the extremity is mildly cool to the touch and has Stacey dressing at this point. Neurologic: The patient is grossly intact with no focal deficits. Psychiatric : He appears to have a bit of a flat affect, but he is appropriate. LABORATORY DATA: Today, WBC 9.0, RBC 3.67, hemoglobin 10.8, hematocrit 32; sodium 144, potassium 4.5, chloride 110, CO2 27, BUN 39, creatinine 2.94, GFR 21.1, glucose 108, calcium 9.1, bilirubin 0.40, AST 12, ALT 17, alk phos 94, CRP 62.6, albumin 3.2, globulin 3.5, total protein 6.7. Urinalysis on the first showed 1+ glucose, squamous epithelial cells present, 2+ blood, and 1+ proteins. Vancomycin trough: Random trough was 15.5 today. INR 1.13. IMAGING: Reports will be supplied with this transfer summary. Please refer to the radiology reports that are enclosed for his MRI, CT's, and transthoracic echocardiogram. DISCHARGE DIAGNOSES: 1. Osteomyelitis left 3rd toe 2. PAD 3. AYDEN on CKD, 2/2 contrast induced nephropathy and obstructive uropathy 4. HTN 5. DMII 6. Atherosclerotic Disease 7. Left Ureteral Stone with Hydronephrosis, s/p Lithotripsy DISCHARGE MEDICATIONS: Please see MAR. DISPOSITION: The patient will be transferred to [facility] in [place], [place] for continued vascular care, nephrology care, and also orthopedic management. The patient has signed consent. He and his are aware of the risks and benefits of transport; benefits being revascularization, orthopedic and renal care, and risks of transport are inherent in the form of motor vehicle collision and/or decompensation en route. However, the patient also states that he understands the risk of possible worsening renal failure if he has a vascular procedure with contrast, but feels that saving his leg and foot outweigh the risk of potential continued renal complications. This should be addressed at length with a journeyman glazier and the vascular surgeon at [facility]. The patient was discharged in stable condition via ambulance transport. COLTON LOUIS NP [id number]/[facility] #: [id number] BAHRATI
[2018-03-05] MEDS ORDERED: Vancomycin Trough Check NOTE FOLLOW UP ONE (11:00)
== END 2018-03-02 18:15 | disposition short-term general hospital (02) | DRG 988 ==
LOC: MEDTELE 09:33 → MED 23:10
PROVIDERS: ADMIT Hospitalist; ATTEND Internal Medicine
PROC: 0TC78ZZ Extirpation of Matter from Left Ureter, Via Natural or Artificial Opening Endoscopic (ICD-10-PCS; principal; 2018-02-24)
PROC: 0T778DZ Dilation of Left Ureter with Intraluminal Device, Via Natural or Artificial Opening Endoscopic (ICD-10-PCS; 2018-02-24)
PROC: BT1FZZZ Fluoroscopy of Left Kidney, Ureter and Bladder (ICD-10-PCS; 2018-02-24)
DX: E11.69 Type 2 diabetes mellitus with other specified complication (principal); M86.172 Other acute osteomyelitis, left ankle and foot; N13.2 Hydronephrosis with renal and ureteral calculous obstruction; N17.9 Acute kidney failure, unspecified; E11.51 Type 2 diabetes mellitus with diabetic peripheral angiopathy without gangrene; E11.22 Type 2 diabetes mellitus with diabetic chronic kidney disease; L97.523 Non-pressure chronic ulcer of other part of left foot with necrosis of muscle; E87.5 Hyperkalemia; E11.621 Type 2 diabetes mellitus with foot ulcer; N14.1 Nephropathy induced by other drugs, medicaments and biological substances; D63.1 Anemia in chronic kidney disease; L03.032 Cellulitis of left toe; N18.9 Chronic kidney disease, unspecified; I12.9 Hypertensive chronic kidney disease with stage 1 through stage 4 chronic kidney disease, or unspecified chronic kidney disease; I25.10 Atherosclerotic heart disease of native coronary artery without angina pectoris; E78.5 Hyperlipidemia, unspecified; I70.292 Other atherosclerosis of native arteries of extremities, left leg; T50.8X5D Adverse effect of diagnostic agents, subsequent encounter; Z95.1 Presence of aortocoronary bypass graft; Z96.619 Presence of unspecified artificial shoulder joint; Z96.659 Presence of unspecified artificial knee joint; Z79.84 Long term (current) use of oral hypoglycemic drugs; Z79.1 Long term (current) use of non-steroidal anti-inflammatories (NSAID); Z79.82 Long term (current) use of aspirin; Z79.4 Long term (current) use of insulin; Z79.899 Other long term (current) drug therapy; Z82.49 Family history of ischemic heart disease and other diseases of the circulatory system; Z87.891 Personal history of nicotine dependence
CPT/HCPCS: 36415; 71045; 74176; 76770; 76857; 80048; 80053; 80202; 81003; 81015; 82365; 82570; 83735; 84100; 84132; 84300; 85025; 85610; 85652; 85730; 86140; 87040; 88300; 89190; 93005; 93306; A9270-GY; C8929; J0360; J0610; J0696; J0780; J1644; J1940; J2270; J2405; J3370

== ENCOUNTER 2018-03-22 18:59 | Emergency (ER) | payer MEDICARE ==
--- NOTE | 2018-03-22 19:27 | ED ---
GI/ HPI - HPI Summary HPI Summary: A 72 y/o male BERYL presents to ED c/o hematuria reaching 6/10 in severity. In the ED room, the patient has a pulse of 84 BPM, O2 saturation of 100% and blood pressure of 118/65. As per triage, "Pt arrives via EMS from [facility] for blood in urine x 3-4 days to possibly a week. a couple days ago, pt's loya was noted to have a blood clot and was replaced". According to the patient, he has been experiencing lots of leakage around his Loya Catheter for the past 3-4 days. Additionally, he noted bleeding lasting for also 3-4 days. He noted that he had a catheter put in place for the past 1.5 weeks and has had two so far. He is not sure if he is currently taking a blood thinner, as "they got me on all kinds of pills". He stated that the catheter was put in place after discovery of a kidney stone. The stone was "blasted" which led to the catheter being put in place. The catheter was put in on 03/02/2018 at [facility]. He was sent to [place] for amputation surgery of his left four toes. - History of Current Complaint Chief Complaint: EDUrogenitalProblems Time Seen by Provider: 03/22/18 19:24 Stated Complaint: ABD PAIN Hx Obtained From: Patient Onset/Duration: Started Days Ago, Still Present Timing: Constant, Lasting Days Severity: Moderate Current Severity: Moderate Pain Intensity: 6 Location of Pain: None Additional Locations for Males: Penis - Loya Catheter leakage and bleeding. Associated Signs and Symptoms: Positive: Hematuria Aggravating Factor(s): Nothing Alleviating Factor(s): Nothing - Additional Pertinent History Primary Care Physician: [id number] - Allergy/Home Medications Allergies/Adverse Reactions: Allergies Allergy/AdvReac Type Severity Reaction Status Date / Time No Known Allergies Allergy Verified 03/22/18 19:08 Home Medications: Home Medications Aspirin [Adult Aspirin] 162 mg PO DAILY 03/22/18 [History Confirmed 03/22/18] Atorvastatin* [Lipitor*] 80 mg PO QPM 03/22/18 [History Confirmed 03/22/18] Cefazolin Sodium in 0.9 % NaCl [Cefazolin 2 G/50 ml-0.9% NaCl] 2 gm IV Q12H [History Confirmed 03/22/18] Docusate CAP* [Colace Cap*] 100 mg PO BID 03/22/18 [History Confirmed 03/22/18] Ferrous Fumarate 325 mg PO DAILY 03/22/18 [History Confirmed 03/22/18] Furosemide TAB* [Lasix TAB*] 40 mg PO DAILY 03/22/18 [History Confirmed 03/22/18 ] Gemfibrozil TAB* [Lopid TAB*] 300 mg PO BID 03/22/18 [History Confirmed ] Insulin GLARGINE(*) [Lantus(*)] 40 units SUBCUT DAILY 03/22/18 [History Confirmed 03/22/18] Metoprolol Succinate XL TAB* [Toprol XL TAB*] 25 mg PO DAILY 03/22/18 [History Confirmed 03/22/18] Niacin ER TAB* [Niaspan ER TAB*] 1,000 mg PO DAILY 03/22/18 [History Confirmed 03/22/18] Pantoprazole Sodium [Protonix] 40 mg PO DAILY 03/22/18 [History Confirmed ] Tamsulosin CAP* [Flomax CAP*] 0.4 mg PO DAILY 03/22/18 [History Confirmed ] amLODIPine TAB* [Norvasc 5 mg TAB*] 10 mg PO DAILY 03/22/18 [History Confirmed 03/22/18] hydrALAZINE TAB* [Apresoline TAB*] 25 mg PO BID 03/22/18 [History Confirmed ] oxyCODONE/Acetamin 5/325 MG* [Percocet 5/325 TAB*] 1 tab PO Q4H PRN 03/22/18 [ History Confirmed 03/22/18] PMH/Surg Hx/FS Hx/Imm Hx Endocrine/Hematology History: Reports: Hx Diabetes Denies: Hx Thyroid Disease Cardiovascular History: Reports: Hx Coronary Artery Disease, Hx Hypertension Denies: Hx Pacemaker/ICD Respiratory History: Denies: Hx Asthma, Hx Chronic Obstructive Pulmonary Disease (COPD) GI History: Reports: Hx Hiatal Hernia Denies: Hx Ulcer Musculoskeletal History: Reports: Other Musculoskeletal History - Right total knee, right shoulder Sensory History: Reports: Hx Cataracts - removed, Hx Contacts or Glasses, Other Sensory Impairments Denies: Hx Hearing Aid Opthamlomology History: Reports: Hx Cataracts - removed, Hx Contacts or Glasses , Other Sensory Impairments Psychiatric History: Denies: Hx Panic Disorder - Surgical History Surgery Procedure, Year, and Place: Knee replacement right knee. right shoulder replacement. fingers left hand repair. cardiac stents - 2008. cardiac bypass 11/12/17. CATARACTS. Lt HAND - 2 & 3RD FINGERS REATTACHED Infectious Disease History: No Infectious Disease History: Denies: Hx Clostridium Difficile, Hx Hepatitis, Hx Human Immunodeficiency Virus (HIV), History Other Infectious Disease, Traveled Outside the [place] in Last 30 Days - Family History Known Family History: Positive: Cardiac Disease, Hypertension - Social History Alcohol Use: None Substance Use Type: Reports: None Smoking Status (MU): Former Smoker Type: Cigarettes Review of Systems Negative: Fever Positive: hematuria, other - Loya Catheter leakage All Other Systems Reviewed And Are Negative: Yes Physical Exam - Summary Physical Exam Summary: VITAL SIGNS: Reviewed. GENERAL: Patient is a nourished male who has a Loya Catheter is lying comfortable in the stretcher. Patient is not in any acute respiratory distress. Patient is morbidly obese. Loya Catheter has blood around the penis and blood in the urine bag. HEAD AND FACE: No signs of trauma. No ecchymosis, hematomas or skull depressions. No sinus tenderness. EYES: PERRLA, EOMI x 2, No injected conjunctiva, no nystagmus. EARS: Hearing grossly intact. Ear canals and tympanic membranes are within normal limits. MOUTH: Oropharynx within normal limits. NECK: Supple, trachea is midline, no adenopathy, no JVD, no carotid bruit, no c- spine tenderness, neck with full ROM. CHEST: Symmetric, no tenderness at palpation LUNGS: Clear to auscultation bilaterally. No wheezing or crackles. CVS: Regular rate and rhythm, S1 and S2 present, no murmurs or gallops appreciated. ABDOMEN: Soft, suprapubic tenderness. Abdomen is distended. No rebound no guarding, and no masses palpated. Bowel sounds are normal. EXTREMITIES: No edema, no cyanosis or clubbing. Dressing on left foot because of amputation of left 4 toes. Decline of right upper extremity. NEURO: Alert and oriented x 3. No acute neurological deficits. Speech is normal and follows commands. SKIN: Dry and warm Triage Information Reviewed: Yes Vital Signs On Initial Exam: Initial Vitals Temp Pulse Resp BP Pulse Ox 99.4 F 64 16 122/60 96 03/22/18 19:03 03/22/18 19:03 03/22/18 19:03 03/22/18 19:03 03/22/18 19:03 Vital Signs Reviewed: Yes Diagnostics - Vital Signs Vital Signs Temp Pulse Resp BP Pulse Ox 03/22/18 19:10 64 118/65 100 03/22/18 19:09 66 94 03/22/18 19:03 99.4 F 64 16 122/60 96 - Laboratory Result Diagrams: 03/22/18 22:48 03/22/18 22:48 Lab Statement: Any lab studies that have been ordered have been reviewed, and results considered in the medical decision making process. Re-Evaluation - Re-Evaluation First Eval Re-Evaluation Time: 23:28 Comment: Rectal exam was performed with Christy. Revealed soft brown stool. Sent for local screen. Second Eval Re-Evaluation Time: 00:30 Change: Improved Comment: Patient had 3 way fully catheter with irrigation. Patient urine clear. Hematuria has resolved. GIGU Course/Dx - Course Course Of Treatment: A 72 y/o male BERYL presents to ED c/o hematuria reaching 6/ 10 in severity. In the ED room, the patient has a pulse of 84 BPM, O2 saturation of 100% and blood pressure of 118/65. No laboratory scans were done. UA and blood work was done. In the ED course, the patient recieved Heparin, Insulin, Lidocaine and IV fluids. A rectal exam was done which revealed soft brown stool. Sent for local screen. Patient had 3 way fully catheter with irrigation. Patient urine clear. Hematuria has resolved. Patient care was discussed with hosptialist, Dr. Regan, who does not feel comfortable admitting the patient due to patient being on dialysis. She recommends patient be transferred to another hospital where he can recieve dialysis. Patient will be transferred to [facility]. MD will be called back with accepting physician soon. MD was called back at [phone] where he spoke to Dr. Sena who accepts patient for transfer and admission to [facility]. Patient will be given FFP for elevated INR. Patient will be transferred with a diagnosis of renal failure. Patient is agreeable with this plan. - Diagnoses Provider Diagnoses: Renal failure - Physician Notifications Discussed Care Of Patient With: Triny Regan Time Discussed With Above Provider: 22:32 Instructed by Provider To: Other - Dr. Regan does not feel comfortable admitted patient due to the patient being on dialysis. She recommends different hospital where he can recieve dialysis. Consult at [phone] with [facility] who accepts patient for transfer, will call back with accepting physician. MD was called back at [phone] where he spoke to Dr. Sena who accepts patient for transfer and admission to [facility]. - Critical Care Time Critical Care Time: 30-74 min - 70 MINUTES Discharge - Sign-Out/Discharge Documenting (check all that apply): Patient Departure - TRANSFER - Discharge Plan Condition: Stable Disposition: TRANS HIGHER LVL OF CARE FAC Referrals: Priya Brooks MD [Primary Care Provider] - - Billing Disposition and Condition Condition: STABLE Disposition: Trans Higher Lvl of Care Fac - Attestation Statements Document Initiated by Scribe: Yes Documenting Scribe: Clemente Pratt Provider For Whom Scribe is Documenting (Include Credential): Archie De Los Santos Scribdarion Attestation: Clemente Tello, scribed for Archie De Los Santos on 03/23/18 at 0525. Scribe Documentation Reviewed: Yes Provider Attestation: The documentation as recorded by the Clemente duran accurately reflects the service I personally performed and the decisions made by Danny medina
[2018-03-22] MEDS ORDERED: Lidocaine 2% JELLY* 6 ML JELLY TOPICAL ONE ×2 (19:46→20:15)
[2018-03-22] MEDS ORDERED: Insulin REGULAR(*) 1 UNITS UNIT IV PUSH ONE ×2 (19:47→21:17)
--- OUTSIDE RECORDS SUMMARY | 2018-03-22 20:00 | XMS REPORT ---
:1945 External Reference #:[id number] Author Organization [facility] Address [address] [place] [address] [place] [address] Phone [phone] Care Team Providers Name Role Phone Corey Winter M.D. 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 Active Onset: 02/15/2018 Anemia Omar Beard M.D. Active Onset: 02/14/2018 Acute renal failure syndrome Martha Schumacher NP Active Onset: 02/14/2018 Chronic kidney disease Martha Schumacher NP Active Onset: 02/13/2018 Essential hypertension Leta Hickman NP Active Onset: 02/12/2018 Type 2 diabetes mellitus Leta Hickman NP Active Onset: 02/12/2018 Cellulitis of left toe Leta Hickman NP Active Social History Type Date Description Comments Smoking Patient is a former smoker quit at age 42 Allergies, Adverse Reactions, Alerts Date Description Reaction Status Severity Comments 02/24/2018 NKDA active Medications Medication Date Status Form Strength Qnty SIG Indications Ordering Provider Ceftriaxone Sodium 00/ Active Solution 2gm 2 Unknown 0000 Rec [place] [facility] Amlodipine Besylate / Active Tablets 5mg 1 by Unknown 0000 mouth every day Omeprazole / Active Capsules 20mg [address] mouth every day Acetaminophen-Codeine / Active Tablets 300-30mg Villagonz #3 0000 Alberto marquez MD Ciprofloxacin HCL / Active Tablets 500mg Villagonz 0000 Alberto marquez MD Clindamycin HCL / Active Capsules 300mg Villagonz 0000 Alberto marquez MD Meloxicam / Active Tablets 15mg Villagonz 0000 Alberto marquez MD Lisinopril / Active Tablets 30mg Crepet, 0000 MD Priya Gemfibrozil / Active Tablets 600mg Crepet, 0000 MD Priya Tresiba Flextouch / Active Solution 100Unit/M Crepet, 0000 Pen-Inject Alicia Powers MD Metoprolol Succinate / Active Tablets ER 25mg Unknown ER 0000 24HR Torsemide / Active Tablets 20mg Unknown 0000 Niacin ER / Active Tablets ER 500mg Unknown (Antihyperlipidemic) 0000 Klor-Con M20 / Active Tablets ER 20Meq Unknown 0000 Atorvastatin Calcium / Active Tablets 80mg Todd, MD Priya Amiodarone HCL / Active Tablets 200mg Unknown 0000 Nitroglycerin / Active Tablets 0.4mg Unknown 0000 Sub Hydrochlorothiazide / Active Tablets 25mg Todd, 0000 MD Priya Metformin HCL / Active Tablets 1000mg Todd, 0000 MD Priya Humalog Kwikpen / Active Solution 100Unit/M Crepet, 0000 Pen-Inject Alicia Powers MD Vital Signs Date Vital Result Comment 02/24/2018 Height 73 inches 6'1" Weight 257.50 lb Heart Rate 72 /min BP Systolic Sitting 120 mmHg BP Diastolic Sitting 64 mmHg Respiratory Rate 14 /min Body Temperature 98.5 F BMI (Body Mass Index) 34.0 kg/m2 Results Test Date Test Result H/L Range Note CBC Auto Diff 02/23/2018 White Blood Count 9.7 10^3/uL 3.5-10.8 Red Blood Count 3.52 10^6/uL Low 4.00-5.40 Hemoglobin 10.3 g/dL Low 14.0-18.0 Hematocrit 31 % Low 42-52 Mean Corpuscular Volume 87 fL 80-94 Mean Corpuscular Hemoglobin 29 pg 27-31 Mean Corpuscular HGB Conc 34 g/dL 31-36 Red Cell Distribution Width 15 % 10.5-15 Platelet Count 282 10^3/uL 150-450 Mean Platelet Volume 7.6 um3 7.4-10.4 Abs Neutrophils 8.3 10^3/uL High 1.5-7.7 Abs Lymphocytes 0.6 10^3/uL Low 1.0-4.8 Abs Monocytes 0.5 10^3/uL 0-0.8 Abs Eosinophils 0.3 10^3/uL 0-0.6 Abs Basophils 0.1 10^3/uL 0-0.2 Abs Nucleated RBC 0 10^3/uL Granulocyte % 85.2 % High 38-83 Lymphocyte % 6.3 % Low 25-47 Monocyte % 4.7 % 0-7 Eosinophil % 2.8 % 0-6 Basophil % 1.0 % 0-2 Nucleated Red Blood Cells % 0 Comp Metabolic Panel 02/23/2018 Sodium 133 mmol/L Low 135-145 Chloride 103 mmol/L 101-111 Co2 Carbon Dioxide 22 mmol/L 22-32 Glucose 359 mg/dL High 70-100 Blood Urea Nitrogen 72 mg/dL High 6-24 Creatinine 5.06 mg/dL High 0.67-1.17 BUN/Creatinine Ratio 14.2 8-20 Calcium 8.8 mg/dL 8.6-10.3 Total Protein 6.4 g/dL 6.4-8.9 Albumin 3.1 g/dL Low 3.2-5.2 Globulin 3.3 g/dL 2-4 Albumin/Globulin Ratio 0.9 Low 1-3 Total Bilirubin 0.30 mg/dL 0.2-1.0 Alkaline Phosphatase 76 U/L 34-104 Alt 17 U/L 7-52 Ast 13 U/L 13-39 Egfr Non- 11.3 >60 Egfr 13.6 >60 1 Potassium 5.7 mmol/L High 3.5-5.0 Anion Gap 8 mmol/L 2-11 Laboratory test finding 02/23/2018 C Reactive Protein 66.57 mg/L High < 8.01 Wound Culture/Sensi 02/10/2018 Wound/Misc SEE RESULT BELOW 2 Culture-Gram Stain Laboratory test finding 02/10/2018 MRSA/S. aureus Ssti SEE RESULT BELOW 3 PCR 1 Because ethnic data is not always readily available, this report includes an eGFR for both -Americans and non- Americans. The National Kidney Disease Education Program (NKDEP) does not endorse the use of the MDRD equation for patients that are not between the ages of 18 and 70, are , have extremes of body size, muscle mass, or nutritional status, or are non- or non-. According to the National Kidney Foundation, irrespective of diagnosis, the stage of the disease is based on the level of kidney function: Stage Description GFR(mL/min/1.73 m(2)) 1 Kidney damage with normal or decreased GFR 90 2 Kidney damage with mild decrease in GFR 60-89 3 Moderate decrease in GFR 30-59 4 Severe decrease in GFR 15-29 5 Kidney failure <15 (or dialysis) 2 SEE RESULT BELOW Name: RICKIE EL : [address]: Rosas Murphy MD Acct: [id number] Unit: [id number] AGE: 72 Location: ED Re02/10/18 SEX: M Status: REG ER SPEC: [id number] NICOLE: 02/10/[address]: Leta Hickman NP REQ: [id number] RECD: 02/10/18 STATUS: RES OTHR DR: Jl Brooks MD _ SOURCE: JACKSONLEFT SPDESC: ORDERED: Culture Stain Procedure Result Reported Site Wound/Misc Gram Stain Preliminary 02/10/18- 2217 ML No Neutrophils Observed 3+ Epithelial Cells 2+ Gram Positive Cocci in Clusters, resembling Staph Wound/Misc Culture PENDING * ML - Main Lab . END OF REPORT DEPARTMENT OF PATHOLOGY, [address] [place] [address] Sebas Sarmiento M.D. Director [facility] # [id number] 3 SEE RESULT BELOW Name: RICKIE EL : [address]: Mary Ibrahim MD Acct: [id number] Unit: [id number] AGE: 72 Location: [facility] 411-01 Re02/10/18 SEX: M Status: ADM IN SPEC: [id number] NICOLE: 02/10/18 [facility] DR: Leta Hickman NP REQ: [id number] RECD: 02/10/18 STATUS: MARBELLA UGALDE DR: Jl Brooks MD _ SOURCE: FOOT,LEFT SPDESC: ORDERED: MRSA/SA SSTI, Culture Stain Procedure Result Reported Site MRSA/S. aureus SSTI PCR Final 02/10/18- 2352 ML Organism 1 MRSA NEGATIVE Organism 2 S.AUREUS NEGATIVE Wound/Misc Gram Stain Final 07/19/18- 0807 ML No Neutrophils Observed 3+ Epithelial Cells 3+ Gram Positive Cocci in Clusters, resembling Staph Wound/Misc Culture Final 02/14/18- 1142 ML Organism 1 NORMAL SOL Quantity 1+ No predominating organism. Mixed anaerobes; unable to isolate for further identification. * ML - Main Lab . END OF REPORT DEPARTMENT OF PATHOLOGY, [address] [place] [address] Sebas Sarmiento M.D. Director [facility] # [id number] Procedures Description No Information Encounters Type Date Location Provider CPT E/M Dx Office Visit 02/17/2018 [facility] Jl Ryan 34417 E11.51 8:54a Infectious Diseases Perla Jacobo L03.032 M60.077 E11.40 Office Visit 02/17/2018 11:23a [facility] [place] [address] L03.116 C.M.A. E11.8 Office Visit 02/13/2018 9:29a [facility] [place] [address] L03.116 C.M.A. Office Visit 12/20/2017 11:33a [facility], 88087 L03.116 Assoc, Hospitalists KNIFE SETTER E11.8 N17.9 N18.3 Office Visit 12/19/2017 11:13a [facility], 78726 L03.116 Assoc, Hospitalists KNIFE SETTER E11.8 N17.9 N18.3 Office Visit 12/18/2017 [facility] Martha Schumacher, 68288 L03.116 11:12a Assoc, KNIFE SETTER Hospitalists E11.8 N17.9 N18.3 Plan of Care Future Appointment(s):03/04/2018 3:40 pm - Jl Jacobo M.D. at [facility] For Infectious Xbqafxqy55/01/2018 - Jl Jacobo M.D.N17.9 Acute kidney failure, unspecifiedComments:pre renal by labs though euvolemic on exam; timing for contrast induced nephropathy makes some sense, AIN due to antibiotics possible as well. 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
--- OUTSIDE RECORDS SUMMARY | 2018-03-22 20:00 | XMS REPORT ---
:1945 External Reference #:[id number] Author Organization [facility] Address [address] [place] [address] [place] [address] Phone [phone] Care Team Providers Name Role Phone Corey Winter M.D. 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 [place] Amlodipine Besylate / Active Tablets 5mg 1 [...] [address]: Rosas Murphy MD Acct: [id number] Unit: [id number] AGE: 72 Location: ED Re02/10/18 SEX: M Status: REG ER SPEC: [id number] NICOLE: 02/10/[address]: Leta Hickman NP REQ: [id number] RECD: 02/10/18 STATUS: RES OTHR DR: Jl Brooks MD _ SOURCE: JACKSONLEFT SPDESC: ORDERED: Culture Stain Procedure Result Reported Site Wound/Misc Gram Stain Preliminary 02/10/18- 2217 ML No Neutrophils Observed 3+ Epithelial Cells 2+ Gram Positive Cocci in Clusters, resembling Staph Wound/Misc Culture PENDING * ML - Main Lab . END OF REPORT DEPARTMENT OF PATHOLOGY, [address] [place] [address] Sebas Sarmiento M.D. Director [facility] # [id number] 3 SEE RESULT BELOW Name: RICKIE EL : [address]: Mary Ibrahim MD Acct: [id number] Unit: [id number] AGE: 72 Location: [facility] 411-01 Re02/10/18 SEX: M Status: ADM IN SPEC: [id number] NICOLE: 02/10/[address] [facility] [address]: Leta Hickman NP REQ: [id number] RECD: 02/10/18 STATUS: MARBELLA UGALDE DR: Jl [...] . END OF REPORT DEPARTMENT OF PATHOLOGY, [address] [place] [address] Sebas Sarmiento M.D. Director [facility] # [id number] Procedures Date CPT Code Description Status 02/24/2018 02842 ECHO Transthorasic Realtime 2D W Doppler & Color Flow Completed Hosp Encounters Type Date Location Provider CPT E/M Dx Office Visit 02/18/2018 [facility] Candido Disla 98403 L03.032 11:02a [facility], Dewey Sloan MD D64.9 E11.22 N18.9 Office Visit 02/17/2018 11:01a [facility], Omar Beard, 08042 L03.032 [facility] E11.22 D64.9 I77.1 Office Visit 02/17/2018 8:54a [facility] Jl Jacobo, 02709 E11.51 Infectious Diseases Perla L03.032 M60.077 E11.40 Office Visit 02/17/2018 11:23a [facility] [place] [address] L03.116 C.M.A. E11.8 Office Visit 02/16[facility]2018 [facility] [address] L03.032 Dewey Duncan E11.22 N18.9 D64.9 Office Visit 02/15/2018 [facility] 76245 L03.032 [facility] E11.22 N18.9 D64.9 Office Visit 02/14/2018 [facility] Martha Schumacher, 50783 L03.032 11:00a Assoc,pc VENEER PRESS OPERATOR Hospitalists N18.9 E11.22 N17.9 Office Visit 02/13/2018 11:00a [facility] Leta Hickman, 51668 L03.032 Assoc,pc Hospitalists VENEER PRESS OPERATOR E11.9 I10 Office Visit 02/13/2018 9:29a [facility] [place] [address] L03.116 C.M.A. Office Visit 02/12/2018 11:00a [facility] Leta Hickman, 45844 L03.032 Assoc, Hospitalists VENEER PRESS OPERATOR E11.9 Office Visit 02/11/2018 10:59a [facility] Leta Hickman, 65496 L03.032 Assoc,pc Hospitalists VENEER PRESS OPERATOR E11.9 Office Visit 02/10/2018 10:58a [facility] Leta Hickman, 88564 L03.032 Assoc,pc Hospitalists VENEER PRESS OPERATOR E11.22 N18.9 Office Visit 12/20/2017 11:33a [facility] Didi Lorenzo, 78671 L03.116 Assoc, Hospitalists VENEER PRESS OPERATOR E11.8 N17.9 N18.3 Office Visit 12/19/2017 11:13a [facility] Didi Lorenzo, 13019 L03.116 Assoc,pc Hospitalists VENEER PRESS OPERATOR E11.8 N17.9 N18.3 Office Visit 12/18/2017 [facility] Martha Schumacher, 08395 L03.116 11:12a Assoc,pc VENEER PRESS OPERATOR Hospitalists E11.8 N17.9 N18.3 Plan of Care Future Appointment(s):03/04/2018 3:40 pm - Jl Jacobo M.D. at [facility] Fdnxaduk48/01/2018 - Jl Jacobo M.D.N17.9 Acute kidney failure, unspecifiedComments:pre renal by labs though euvolemic on exam; timing for contrast induced nephropathy makes some sense, AIN due to antibiotics possible as well. 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
[2018-03-22] MEDS ORDERED: Lidocaine 2% JELLY* 10 ML JELLY TOPICAL ONE (20:59)
[2018-03-22] MEDS ORDERED: NS 0.9% 1000 ML* 1,000 ML IV ONE (21:17)
[2018-03-22] MEDS ORDERED: Insulin REGULAR(*) 1 UNITS UNIT ONE (21:18)
[2018-03-22 21:45] LABS: Urine Appearance Turbid; Urine Blood 2+ (Negative); Urine Color Amber; Urine Ketones Trace (Negative); Urine Protein 2+(100 mg/dL) (Negative); Urine Specific Gravity 1.017 (1.010-1.030); Urine Urobilinogen Negative (Negative)
[2018-03-22 21:46] LABS: Urine Red Blood Cell 3+(>10/hpf) (Absent); Urine White Blood Cell 1+(6-10/hpf) (Absent)
[2018-03-22 21:47] LABS: ABS Basophils 0 10^3/ul (0-0.2); ABS Eosinophils 0.1 10^3/ul (0-0.6); ABS Lymphocytes 0.5 10^3/ul (1.0-4.8); ABS Monocytes 0.8 10^3/ul (0-0.8); ABS Neutrophils 11.1 10^3/ul (1.5-7.7); ABS Nucleated RBC 0 10^3/ul; Eosinophil % 0.7 % (0-6); Hematocrit 22 % (42-52); Hemoglobin 7.3 g/dl (14.0-18.0); Lymphocyte % 4.4 % (25-47); Mean Corpuscular HGB Conc 34 g/dl (31-36); Mean Corpuscular Hemoglobin 29 pg (27-31); Mean Corpuscular Volume 88 fL (80-94); Nucleated Red Blood Cells % 0; Platelet Count 160 10^3/ul (150-450); Red Blood Count 2.48 10^6/ul (4.00-5.40); Red Cell Distribution Width 16 % (10.5-15); White Blood Count 12.6 10^3/ul (3.5-10.8)
[2018-03-22 21:54] LABS: INR 4.32 (0.77-1.02)
[2018-03-22 22:01] LABS: EGFR Non-African American 7.1 (>60)
[2018-03-22 22:56] LABS: ABS Basophils 0.1 10^3/ul (0-0.2); ABS Eosinophils 0.1 10^3/ul (0-0.6); ABS Lymphocytes 0.6 10^3/ul (1.0-4.8); ABS Monocytes 0.7 10^3/ul (0-0.8); ABS Neutrophils 10.2 10^3/ul (1.5-7.7); ABS Nucleated RBC 0 10^3/ul; Eosinophil % 0.7 % (0-6); Hematocrit 22 % (42-52); Hemoglobin 7.3 g/dl (14.0-18.0); Mean Corpuscular HGB Conc 33 g/dl (31-36); Mean Corpuscular Hemoglobin 29 pg (27-31); Mean Corpuscular Volume 88 fL (80-94); Nucleated Red Blood Cells % 0; Platelet Count 153 10^3/ul (150-450); Red Blood Count 2.52 10^6/ul (4.00-5.40); Red Cell Distribution Width 16 % (10.5-15); White Blood Count 11.7 10^3/ul (3.5-10.8)
[2018-03-22 23:04] LABS: INR 4.31 (0.77-1.02)
[2018-03-22 23:11] LABS: EGFR Non-African American 7.1 (>60)
[2018-03-23] MEDS ORDERED: Morphine INJ* 2 MG/ML 1 ML SYRINGE (TWO MG - NEW SYRINGE VERSION) ONE (00:20)
[2018-03-23] MEDS ORDERED: Ondansetron INJ* 2 MG/ML VIAL ONE (00:21)
[2018-03-23] MEDS ORDERED: Ondansetron INJ* 2 MG/ML VIAL IV ONE (01:01)
[2018-03-23] MEDS ORDERED: Morphine INJ* 2 MG/ML 1 ML SYRINGE (TWO MG - NEW SYRINGE VERSION) IV ONE (01:01)
[2018-03-23 06:28] VITALS: BP 135/67
--- NOTE | 2018-03-23 06:39 | PN ---
Progress Note - Progress Note Date of Service: 03/23/18 Note: Paged for evaluation - Concern for renal function and requiring imminent dialysis. Also no urology division director for his hematuria with a drop in H/H. Recommended to Dr. De Los Santos to call Dr. Batista to see if he is available to dialysize him if necessary during this admission.
--- NOTE | 2018-03-24 19:17 | ED ---
Progress - Progress Note Progress Note: Patient's preliminary urine culture reveals greater than 100,000 pseudomonas aeruginosa. Patient was transferred. Final results pending. We'll fax when they are available. Re-Evaluation - Re-Evaluation First Eval Re-Evaluation Time: 23:28 Comment: Rectal exam was performed with Christy. Revealed soft brown stool. Sent for local screen. Second Eval Re-Evaluation Time: 00:30 Change: Improved Comment: Patient had 3 way fully catheter with irrigation. Patient urine clear. Hematuria has resolved. Course/Dx - Course Course Of Treatment: A 72 y/o male BERYL presents to ED c/o hematuria reaching 6/ 10 in severity. In the ED room, the patient has a pulse of 84 BPM, O2 saturation of 100% and blood pressure of 118/65. No laboratory scans were done. UA and blood work was done. In the ED course, the patient recieved Heparin, Insulin, Lidocaine and IV fluids. A rectal exam was done which revealed soft brown stool. Sent for local screen. Patient had 3 way fully catheter with irrigation. Patient urine clear. Hematuria has resolved. Patient care was discussed with hosptialist, Dr. Regan, who does not feel comfortable admitting the patient due to patient being on dialysis. She recommends patient be transferred to another hospital where he can recieve dialysis. Patient will be transferred to [facility]. MD will be called back with accepting physician soon. MD was called back at 0006 where he spoke to Dr. Sena who accepts patient for transfer and admission to [facility]. Patient will be given FFP for elevated INR. Patient will be transferred with a diagnosis of renal failure. Patient is agreeable with this plan. - Diagnoses Provider Diagnoses: Renal failure - Provider Notifications Time Discussed With Above Provider: 22:32 Instructed by Provider To: Other - Dr. Regan does not feel comfortable admitted patient due to the patient being on dialysis. She recommends different hospital where he can recieve dialysis. Consult at 2333 with Neal Guan, who accepts patient for transfer, will call back with accepting physician. MD was called back at 0006 where he spoke to Dr. Sena who accepts patient for transfer and admission to [facility]. - Critical Care Time Critical Care Time: 30-74 min - 70 MINUTES Discharge - Sign-Out/Discharge Documenting (check all that apply): Post-Discharge Follow Up - Discharge Plan Condition: Stable Disposition: TRANS HIGHER LVL OF CARE FAC Referrals: Priya Brooks MD [Primary Care Provider] - - Billing Disposition and Condition Condition: STABLE Disposition: Trans Higher Lvl of Care Fac
== END 2018-03-23 06:27 | disposition short-term general hospital (02) ==
LOC: ED 18:59
DX: N19 Unspecified kidney failure (principal)
CPT/HCPCS: 36415; 80053; 81003; 81015; 82270; 83735; 85025; 85610; 85730; 86850; 86900; 86901; 86922; 86927; 87077; 87086; 87186; 99285; A9270-GY; J2270; J2405; P9017; P9040

== ENCOUNTER 2018-07-08 10:59 | Emergency (ER) | payer MEDICARE ==
--- NOTE | 2018-07-08 11:26 | ED ---
Shortness of Breath - HPI Summary HPI Summary: Pt is a 72 y/o male who presents to the ED c/o SOB. He had a triple bypass on 11/02/17. Pt began to have SOB a few weeks ago. He currently gets dialysis every Thursday, Thursday, and Thursday, and usually gets 2.1 liters taken off. Pt states the SOB is not relieved by the dialysis, and is made worse by exertion and walking. He last went to dialysis yesterday. Pt also notes weight loss and LE edema. As per , he appears to have increased fluid in his abdomen. Pt still urinates a small amount. He denies any hx of irregular heartbeat. O2 sat 90% while in room. - History of Current Complaint Chief Complaint: EDShortnessOfBreath Time Seen by Provider: 07/08/18 11:18 Hx Obtained From: Patient, Family/Odd Job Worker - Onset/Duration: Gradual Onset, Lasting Weeks - 2-3, Still Present Timing: Constant Dyspnea At: Rest Aggrevating Factors: Movement Alleviating Factors: Nothing Associated Signs & Symptoms: Edema - Allergy/Home Medications Allergies/Adverse Reactions: Allergies Allergy/AdvReac Type Severity Reaction Status Date / Time No Known Allergies Allergy Verified 05/13/18 13:36 Home Medications: Home Medications Aspirin TAB* [Aspirin 325 MG TAB*] 325 mg PO DAILY 07/08/18 [History Confirmed 07/08/18] Atorvastatin* [Lipitor*] 40 mg PO DAILY 07/08/18 [History Confirmed 07/08/18] Insulin LISPRO* [HumaLOG*] 6 units SUBCUT TID WITH MEALS 07/08/18 [History Confirmed 07/08/18] Metoprolol Tartrate TAB* [Lopressor TAB*] 25 mg PO DAILY 07/08/18 [History Confirmed 07/08/18] PMH/Surg Hx/FS Hx/Imm Hx Endocrine/Hematology History: Reports: Hx Diabetes Denies: Hx Thyroid Disease Cardiovascular History: Reports: Hx Coronary Artery Disease, Hx Hypertension Denies: Hx Pacemaker/ICD Respiratory History: Denies: Hx Asthma, Hx Chronic Obstructive Pulmonary Disease (COPD) GI History: Reports: Hx Hiatal Hernia Denies: Hx Ulcer Musculoskeletal History: Reports: Other Musculoskeletal History - Right total knee, right shoulder Sensory History: Reports: Hx Cataracts - removed, Hx Contacts or Glasses, Other Sensory Impairments Denies: Hx Hearing Aid Opthamlomology History: Reports: Hx Cataracts - removed, Hx Contacts or Glasses , Other Sensory Impairments Psychiatric History: Denies: Hx Panic Disorder - Surgical History Surgery Procedure, Year, and Place: Knee replacement right knee. right shoulder replacement. fingers left hand repair. cardiac stents - 2008. cardiac bypass 11/12/17. CATARACTS. Lt HAND - 2 & 3RD FINGERS REATTACHED Infectious Disease History: No Infectious Disease History: Denies: Hx Clostridium Difficile, Hx Hepatitis, Hx Human Immunodeficiency Virus (HIV), History Other Infectious Disease, Traveled Outside the [place] in Last 30 Days - Family History Known Family History: Positive: Cardiac Disease, Hypertension - Social History Alcohol Use: None Hx Substance Use: No Substance Use Type: Reports: None Hx Tobacco Use: Yes Smoking Status (MU): Former Smoker Type: Cigarettes Review of Systems Positive: Other - weight loss Positive: Shortness Of Breath Positive: Edema All Other Systems Reviewed And Are Negative: Yes Physical Exam - Summary Physical Exam Summary: Appearance: Well appearing, no pain distress Skin: warm, dry, reflects adequate perfusion Head/face: normal Eyes: EOMI, SHARMIN ENT: mucous membranes moist Neck: supple, non-tender, mild JVD Respiratory: CTA, lung sounds diminished in bases Cardiovascular: irregular heart beat with normal rate, pulses symmetrical, 3+ LE edema Abdomen: non-tender, soft, edema of lower abdominal wall, small umbilical hernia , sternotomy scar in center chest Bowel Sounds: present Musculoskeletal: strength/ROM intact, amputation of left toes Neuro: normal, sensory motor intact, A&Ox3 Triage Information Reviewed: Yes Vital Signs On Initial Exam: Initial Vitals Temp Pulse Resp BP Pulse Ox 97.6 F 65 20 140/86 93 07/08/18 11:11 07/08/18 11:11 07/08/18 11:11 07/08/18 11:11 07/08/18 11:11 Vital Signs Reviewed: Yes Diagnostics - Vital Signs Vital Signs Temp Pulse Resp BP Pulse Ox 07/08/18 11:11 97.6 F 65 20 140/86 93 - Laboratory Result Diagrams: 07/08/18 11:42 07/08/18 11:42 Lab Statement: Any lab studies that have been ordered have been reviewed, and results considered in the medical decision making process. - Radiology CXR Radiology Interpretation Completed By: Radiologist Summary of Radiographic Findings: CARDIOMEGALY WITH PULMONARY INTERSTITIAL EDEMA AND SMALL BILATERAL PLEURAL EFFUSIONS. ED physician reviewed radiology report. - Ultrasound No standard instances Ultrasound Interpretation Completed By: Radiologist Summary of Ultrasound Findings: Venous doppler study: NO RIGHT LOWER EXTREMITY DEEP VEIN THROMBOSIS. NO LEFT LOWER EXTREMITY DEEP VEIN THROMBOSIS. ED physician reviewed radiology report. - EKG 12:13 Cardiac Rate: NL - 60 bpm EKG Rhythm: Sinus Rhythm ST Segment: Non-Specific Ectopy: PACs Summary of EKG Findings: LAD, long QT interval Re-Evaluation - Re-Evaluation First Eval Re-Evaluation Time: 12:50 Change: Improved Comment: Pt feels much better on oxygen. Respiratory therapy will come perform an oxygen study. Course/Dx - Course Course Of Treatment: Nurse's note reviewed. Patient with history of end-stage renal disease on dialysis with chronic shortness of breath and malaise. He has evidence for chronic fluid overload. They have not been taking much volume off of him. I discussed with the web content developer and also his primary care physician. He is more comfortable with O2 sats of 100% on 2 L of oxygen. Baseline O2 sat is 90-92%. He may require home oxygen which was discussed with both physicians. He is due for dialysis in the morning. He is not hyperkalemic and is able to be discharged in stable condition for dialysis in the morning. - Diagnoses Differential Diagnosis/HQI/PQRI: Positive: CHF, COPD Exacerbation, Pneumonia, Pulmonary Embolism Provider Diagnoses: ESRD on dialysis, Hypoxia, Fluid overload - Physician Notifications Discussed Care of Patient With: Alia Martínez Time Discussed With Above Provider: 13:40 Instructed by Provider To: Other - Dr. Martínez will see the pt tomorrow. At 13 :[address] Regan, who will take more fluid off the pt during dialysis tomorrow. Discharge - Sign-Out/Discharge Documenting (check all that apply): Patient Departure - Discharge - Discharge Plan Condition: Improved Disposition: HOME Patient Education Materials: Dialysis Diet (DC), Hypoxia (ED) Referrals: Priya Brooks MD [Primary Care Provider] - Additional Instructions: Inform the dialysis nurses that you have been having fluid gain on your legs and shortness of breath. They may need to take off more fluid. Call your doctor today to schedule prompt reevaluation and certification of oxygen. Return if worse, new symptoms or other concerns. - Billing Disposition and Condition Condition: IMPROVED Disposition: Home - Attestation Statements Document Initiated by Magdy: Yes Documenting Scribe: Claire Mccray Provider For Whom Magdy is Documenting (Include Credential): Jose Miguel Munoz MD Scribe Attestation: Claire Tello, scribed for Jose Miguel Munoz MD on 07/08/18 at 1834. Scribe Documentation Reviewed: Yes Provider Attestation: The documentation as recorded by the Claire duran accurately reflects the service I personally performed and the decisions made by me, Jose Miguel Munoz MD Status of Scribe Document: Viewed
[2018-07-08 12:13] LABS: ABS Basophils 0.1 10^3/ul (0-0.2); ABS Eosinophils 0.1 10^3/ul (0-0.6); ABS Lymphocytes 0.7 10^3/ul (1.0-4.8); ABS Monocytes 0.5 10^3/ul (0-0.8); ABS Neutrophils 6.3 10^3/ul (1.5-7.7); ABS Nucleated RBC 0 10^3/ul; Eosinophil % 1.8 %; Hematocrit 34 % (42-52); Hemoglobin 10.8 g/dl (14.0-18.0); Lymphocyte % 8.6 %; Mean Corpuscular HGB Conc 32 g/dl (31-36); Mean Corpuscular Hemoglobin 28 pg (27-31); Mean Corpuscular Volume 88 fL (80-94); Nucleated Red Blood Cells % 0.1; Platelet Count 208 10^3/ul (150-450); Red Blood Count 3.85 10^6/ul (4.00-5.40); Red Cell Distribution Width 18 % (10.5-15); White Blood Count 7.6 10^3/ul (3.5-10.8)
[2018-07-08 12:21] LABS: EGFR Non-African American 19.3 (>60)
[2018-07-08] MEDS ORDERED: Furosemide IV* 10 MG/ML VIAL (40 MG) IV ONE (12:41)
[2018-07-08 14:31] VITALS: BP 141/80
== END 2018-07-08 14:31 | disposition home or self-care (01) ==
LOC: ED 10:59
DX: N18.6 End stage renal disease (principal); Z99.2 Dependence on renal dialysis; R09.02 Hypoxemia; E87.70 Fluid overload, unspecified; J90 Pleural effusion, not elsewhere classified; R06.02 Shortness of breath; E11.9 Type 2 diabetes mellitus without complications; I25.10 Atherosclerotic heart disease of native coronary artery without angina pectoris
CPT/HCPCS: 36415; 71046; 80053; 83605; 83880; 84484; 85025; 93005; 93970; 96374; 99283; J1940

== ENCOUNTER 2018-07-19 11:49 | Emergency (ER) | payer MEDICARE ==
[2018-07-19] MEDS ORDERED: NS 0.9% 1000 ML* 1,000 ML IV ONE (12:28)
[2018-07-19 12:53] LABS: ABS Basophils 0.1 10^3/ul (0-0.2); ABS Eosinophils 0.1 10^3/ul (0-0.6); ABS Lymphocytes 0.6 10^3/ul (1.0-4.8); ABS Monocytes 0.5 10^3/ul (0-0.8); ABS Neutrophils 8.9 10^3/ul (1.5-7.7); ABS Nucleated RBC 0 10^3/ul; Eosinophil % 0.8 %; Hematocrit 35 % (42-52); Hemoglobin 11.1 g/dl (14.0-18.0); Lymphocyte % 5.5 %; Mean Corpuscular HGB Conc 32 g/dl (31-36); Mean Corpuscular Hemoglobin 28 pg (27-31); Mean Corpuscular Volume 88 fL (80-94); Mean Platelet Volume 7.6 fL (7.4-10.4); Nucleated Red Blood Cells % 0; Platelet Count 240 10^3/ul (150-450); Red Blood Count 3.95 10^6/ul (4.00-5.40); Red Cell Distribution Width 18 % (10.5-15); White Blood Count 10.1 10^3/ul (3.5-10.8)
[2018-07-19 13:05] LABS: BUN/Creatinine Ratio 9.6 (8-20); Calcium 8.8 mg/dL (8.6-10.3); Potassium 3.7 mmol/L (3.5-5.0)
--- NOTE | 2018-07-19 13:17 | ED ---
Abdominal Pain/Male - HPI Summary HPI Summary: The patient is a 73 y/o M presenting to [facility] with a chief complaint of a ' popped' umbilical hernia for three days. He has had the hernia for a while, but his PCP did not believe that it was necessary to reduce at this time. The hernia is firm with a pain rating of 9/10 in severity, but there is no other pain associated. He denies nausea and vomiting. - History of Current Complaint Chief Complaint: EDAbdPain Stated Complaint: POSS POPPED HERNIA Time Seen by Provider: 07/19/18 12:23 Hx Obtained From: Patient Onset/Duration: Sudden Onset, Lasting Days - three days, Still Present Timing: Lasting Days - three days Severity Initially: Moderate Severity Currently: Moderate Pain Intensity: 9 Pain Scale Used: 0-10 Numeric Location: Umbilical Radiates: No Character: Dull Aggravating Factor(s): Nothing Alleviating Factor(s): Nothing Associated Signs And Symptoms: Negative: Fever, Nausea, Vomiting - Allergies/Home Medications Allergies/Adverse Reactions: Allergies Allergy/AdvReac Type Severity Reaction Status Date / Time No Known Allergies Allergy Verified 05/13/18 13:36 PMH/Surg Hx/FS Hx/Imm Hx Endocrine/Hematology History: Reports: Hx Diabetes Denies: Hx Thyroid Disease Cardiovascular History: Reports: Hx Coronary Artery Disease, Hx Hypertension Denies: Hx Pacemaker/ICD Respiratory History: Denies: Hx Asthma, Hx Chronic Obstructive Pulmonary Disease (COPD) GI History: Reports: Hx Hiatal Hernia Denies: Hx Ulcer Musculoskeletal History: Reports: Other Musculoskeletal History - Right total knee, right shoulder Sensory History: Reports: Hx Cataracts - removed, Hx Contacts or Glasses, Other Sensory Impairments Denies: Hx Hearing Aid Opthamlomology History: Reports: Hx Cataracts - removed, Hx Contacts or Glasses , Other Sensory Impairments Psychiatric History: Denies: Hx Panic Disorder - Surgical History Surgery Procedure, Year, and Place: Knee replacement right knee. right shoulder replacement. fingers left hand repair. cardiac stents - 2008. cardiac bypass 11/12/17. CATARACTS. Lt HAND - 2 & 3RD FINGERS REATTACHED Infectious Disease History: No Infectious Disease History: Denies: Hx Clostridium Difficile, Hx Hepatitis, Hx Human Immunodeficiency Virus (HIV), History Other Infectious Disease, Traveled Outside the [place] in Last 30 Days - Family History Known Family History: Positive: Cardiac Disease, Hypertension - Social History Alcohol Use: None Hx Substance Use: No Substance Use Type: Reports: None Hx Tobacco Use: Yes Smoking Status (MU): Former Smoker Type: Cigarettes Review of Systems Negative: Fever Positive: Other - firm umbilical hernia. Negative: Vomiting, Nausea All Other Systems Reviewed And Are Negative: Yes Physical Exam - Summary Physical Exam Summary: Appearance: Well-appearing, Well-nourished, lying in bed comfortably Skin: Warm, dry, no obvious rash Eyes: sclera anicteric, no conjunctival pallor ENT: mucous membranes moist, pharynx appears normal Neck: Supple, nontender Respiratory: Clear to auscultation, no signs of respiratory distress Cardiovascular: Normal S1, S2. No murmurs. Normal distal pulses in tibial and radial bilaterally. Abdomen: Soft, firm and tender umbilical hernia, unable to be reduced with tangential pressure, normal active bowel sounds present Musculoskeletal: Normal, Strength/ROM Intact Neurological: A&Ox3, awake and alert, mentation is normal, speech is fluent and appropriate Psychiatric: affect is normal, does not appear anxious or depressed Triage Information Reviewed: Yes Vital Signs On Initial Exam: Initial Vitals Temp Pulse Resp BP Pulse Ox 97.8 F 73 20 123/55 99 07/19/18 12:01 07/19/18 12:01 07/19/18 12:01 07/19/18 12:01 07/19/18 12:01 Vital Signs Reviewed: Yes Diagnostics - Vital Signs Vital Signs Temp Pulse Resp BP Pulse Ox 07/19/18 12:01 97.8 F 73 20 123/55 99 - Laboratory Lab Results: Lab Results 07/19/18 07/19/18 Range/Units 12:42 12:42 WBC 10.1 (3.5-10.8) 10^3/ul RBC 3.95 L (4.00-5.40) 10^6/ul Hgb 11.1 L (14.0-18.0) g/dl Hct 35 L (42-52) % MCV 88 (80-94) fL MCH 28 (27-31) pg MCHC 32 (31-36) g/dl RDW 18 H (10.5-15) % Plt Count 240 (150-450) 10^3/ul MPV 7.6 (7.4-10.4) fL Neut % (Auto) 87.9 % Lymph % (Auto) 5.5 % [place] % (Auto) 4.8 % Eos % (Auto) 0.8 % Baso % (Auto) 1.0 % Absolute Neuts (auto) 8.9 H (1.5-7.7) 10^3/ul Absolute Lymphs (auto) 0.6 L (1.0-4.8) 10^3/ul Absolute Monos (auto) 0.5 (0-0.8) 10^3/ul Absolute Eos (auto) 0.1 (0-0.6) 10^3/ul Absolute Basos (auto) 0.1 (0-0.2) 10^3/ul Absolute Nucleated RBC 0 10^3/ul Nucleated RBC % 0 Sodium 136 (135-145) mmol/L Potassium 3.7 (3.5-5.0) mmol/L Chloride 93 L (101-111) mmol/L Carbon Dioxide 33 H (22-32) mmol/L Anion Gap 10 (2-11) mmol/L BUN 34 H (6-24) mg/dL Creatinine 3.54 H (0.67-1.17) mg/dL Est GFR ( Amer) 20.5 (>60) Est GFR (Non-Af Amer) 17.0 (>60) BUN/Creatinine Ratio 9.6 (8-20) Glucose 164 H (70-100) mg/dL Calcium 8.8 (8.6-10.3) mg/dL Result Diagrams: 07/19/18 12:42 07/19/18 12:42 Lab Statement: Any lab studies that have been ordered have been reviewed, and results considered in the medical decision making process. - EKG 12:49 Cardiac Rate: NL - 66 BPM EKG Rhythm: Sinus Rhythm Summary of EKG Findings: NSR at 66BPM, P waves, QRS complex, and T waves are within normal limits, T waves and intervals are normal, no ischemic changes. This is a normal EKG. Re-Evaluation - Re-Evaluation First Eval Re-Evaluation Time: 13:09 Change: Improved Comment: He is feeling better after the reduction by Dr. Hannah. I also spoke to him concerning discharge home. Abdominal Pain Fem Course/Dx - Course Course Of Treatment: The patient is a 73 y/o M with a chief complaint of a ' popped' umbilical hernia for three days. He has had the hernia for a while, but his PCP did not believe that it was necessary to reduce at this time. The hernia is firm with a pain rating of 9/10 in severity, but there is no other pain associated. He denies nausea and vomiting. Upon phsyical exam, there is firm and tender umbilical hernia, unable to be reduced with tangential pressure. In the ED course, he was given Ns. Blood work is normal. EKG is normal. He is diagnosed with umbilical hernia. I consulted with Dr. Hannah, surgery, who came to see the patient in the ED at 12:49; he was able to reduce the hernia, and he will see the patient in his office. He will be discharged home with education materials and follow up with Dr. Hannah. He agrees with this plan and understands the need for return to the ED if new for worsening symptoms. - Diagnoses Provider Diagnoses: Umbilical hernia - Provider Notifications Discussed Care Of Patient With: Arnaldo Hannah - surgery Time Discussed With Above Provider: 13:09 Instructed by Provider To: Other - Dr. Hannah came to visit the patient in the ED. He was able to reduce the hernia. He will see the patient is his office. Discharge - Sign-Out/Discharge Documenting (check all that apply): Patient Departure - Patient will be discharged home. - Discharge Plan Condition: Improved Disposition: HOME Patient Education Materials: Umbilical Hernia (ED) Referrals: Arnaldo Hannah MD [Medical Doctor] - As Soon As Possible - Billing Disposition and Condition Condition: IMPROVED Disposition: Home - Attestation Statements Document Initiated by Magdy: Yes Documenting Scribe: Florecita Combs Provider For Whom Magdy is Documenting (Include Credential): Dr. Pedrito Cedillo MD Scribdarion Attestation: Florecita Tello scribed for Dr. Pedrito Cedillo MD on 07/20/18 at 1250. Scribe Documentation Reviewed: Yes Provider Attestation: The documentation as recorded by the Florecita duran accurately reflects the service I personally performed and the decisions made by me, Dr. Pedrito Cedillo MD Status of Scribe Document: Viewed
--- OUTSIDE RECORDS SUMMARY | 2018-07-19 13:53 | XMS REPORT | Continuity of Care Document ---
:1945 External Reference #:[id number] Author Name KatiegilaRebecca Care Team Providers Name Role Phone Priya Brooks MD Primary Care Physician Unavailable Payers Type Date Identification Numbers Payment Provider Subscriber Policy Number: [id number] [facility] Health Ins Ppo/Epo Rickie El Group Number: [id number] Group Name: [place] [address] PayID: [id number] Advance Directives Description No Information Available Problems Date Description Provider Status Onset: 02/12/2018 Cellulitis of left toe Leta Hickman NP Active Onset: 02/12/2018 Type 2 diabetes mellitus Leta Hickman NP Active Onset: 02/13/2018 Essential hypertension Leta Hickman NP Active Onset: 02/14/2018 Chronic kidney disease Martha Martinez NP Active Onset: 02/14/2018 Acute renal failure syndrome Martha Martinez NP Active Onset: 02/15/2018 Anemia Omar Beard M.D. Active Onset: 02/17/2018 Stricture of artery Omar Beard M.D. Active Onset: 02/25/2018 Hyperlipidemia Alfred Naranjo N.P. Active Onset: 02/26/2018 Hydronephrosis Rocío Hebert N.P. Active Onset: 02/26/2018 Acute osteomyelitis of ankle Rocío Hebert N.P. Active and/or foot Onset: 02/27/2018 Anemia of chronic renal failure Rocío Hebert N.P. Active Onset: 03/02/2018 Peripheral vascular disease Mary Dave NP Active Onset: 03/02/2018 Type 2 diabetes mellitus with Mary Dave NP Active diabetic peripheral angiopathy without gangrene Onset: 03/02/2018 Ulcer of foot Mary Noblefield Jolie NP Active Onset: 03/02/2018 Type 2 diabetes mellitus with Mary Sutherland ADDIE Dave Active diabetic peripheral angiopathy with gangrene Onset: 03/02/2018 Osteomyelitis, unspecified Mary DaveADDIE Active Family History Description No Information Available Social History Type Date Description Comments Sex Unknown Tobacco Use Start: Unknown End: Unknown Patient is a former smoker quit at age 42 Smoking Status Reviewed: 07/13/18 Patient is a former smoker quit at age 42 Allergies, Adverse Reactions, Alerts Description No Known Drug Allergies Medications Medication Date Status Form Strength Qnty SIG Indications Ordering Provider Acetaminophen-Codeine / Active Tablets 300-30mg Villagonz #3 0000 Alberto marquez MD Metoprolol Succinate / Active Tablets ER 25mg Unknown ER 0000 24HR Atorvastatin Calcium / Active Tablets 80mg Crepeni, 0000 MD Priya Nitroglycerin / Active Tablets 0.4mg Unknown 0000 Sub Humalog Kwikpen / Active Solution 100Unit/M Crepet, 0000 Pen-Inject L MD Priya Ceftriaxone Sodium / Hx Solution 2gm 2 Unknown 0000 - Rec grams 2017 [place] [facility] [place]mlodipine Besylate / Hx Tablets 5mg 1 by Unknown 0000 - mouth 2017 day Omeprazole / Hx Capsules 20mg 1 by Unknown 0000 - DR mouth 2017 day Ciprofloxacin HCL / Hx Tablets 500mg Villagonz 0000 - jimmy, Alberto2017 Clindamycin HCL / Hx Capsules 300mg Villagonz 0000 - jimmy, Alberto2017 Meloxicam / Hx Tablets 15mg Villagonz 0000 - jimmy, Alberto2017 Lisinopril / Hx Tablets 30mg Todd 0000 - MD Priya 2017 Gemfibrozil / Hx Tablets 600mg Todd 0000 - MD Priya 2017 Tresiba Flextouch / Hx Solution 100Unit/M Crepet, 0000 - Pen-Inject Alicia Powers MD 2017 Torsemide / Hx Tablets 20mg Unknown 2017 Niacin ER / Hx Tablets ER 500mg Unknown (Antihyperlipidemic) 2017 Klor-Con M20 / Hx Tablets ER 20Meq Unknown 2017 Amiodarone HCL / Hx Tablets 200mg Unknown 2017 Hydrochlorothiazide / Hx Tablets 25mg Subahsh Brooks MD 2017 Metformin HCL / Hx Tablets 1000mg Subhash Brooks MD 2017 Immunizations Description No Information Available Vital Signs Date Vital Result Comment 2018 11:21am Height 73 inches 6'1" Weight 230.00 lb per pt Heart Rate 67 /min BP Systolic Sitting 138 mmHg BP Diastolic Sitting 70 mmHg Respiratory Rate 14 /min Body Temperature 97.8 F BMI (Body Mass Index) 30.3 kg/m2 02/24/2018 8:25am Height 73 inches 6'1" Weight 257.50 lb Heart Rate 72 /min BP Systolic Sitting 120 mmHg BP Diastolic Sitting 64 mmHg Respiratory Rate 14 /min Body Temperature 98.5 F BMI (Body Mass Index) 34.0 kg/m2 Results Test Date Facility Test Result H/L Range Note CBC Auto Diff 02/23/2018 [facility] White Blood 9.7 10^3/uL N 3.5-10.[address] [place] [address] [phone] Red Blood Count 3.52 10^6/uL Low 4.00-5.40 Hemoglobin 10.3 g/dL Low 14.0-18.0 Hematocrit 31 % Low 42-52 Mean Corpuscular Volume 87 fL N 80-94 Mean Corpuscular Hemoglobin 29 pg N 27-31 Mean Corpuscular HGB Conc 34 g/dL N 31-36 Red Cell Distribution Width 15 % N 10.5-15 Platelet Count 282 10^3/uL N 150-450 Mean Platelet Volume 7.6 um3 N 7.4-10.4 Abs Neutrophils 8.3 10^3/uL High 1.5-7.7 Abs Lymphocytes 0.6 10^3/uL Low 1.0-4.8 Abs Monocytes 0.5 10^3/uL N 0-0.8 Abs Eosinophils 0.3 10^3/uL N 0-0.6 Abs Basophils 0.1 10^3/uL N 0-0.2 Abs Nucleated RBC 0 10^3/uL Granulocyte % 85.2 % High 38-83 Lymphocyte % 6.3 % Low 25-47 Monocyte % 4.7 % N 0-7 Eosinophil % 2.8 % N 0-6 Basophil % 1.0 % N 0-2 Nucleated Red Blood Cells % 0 Comp Metabolic Panel 02/23/2018 [facility] Sodium 133 mmol/L Low 135-[address] [place] [address] [phone] Chloride 103 mmol/L N 101-111 Co2 Carbon Dioxide 22 mmol/L N 22-32 Glucose 359 mg/dL High 70-100 Blood Urea Nitrogen 72 mg/dL High 6-24 Creatinine 5.06 mg/dL High 0.67-1.17 BUN/Creatinine Ratio 14.2 N 8-20 Calcium 8.8 mg/dL N 8.6-10.3 Total Protein 6.4 g/dL N 6.4-8.9 Albumin 3.1 g/dL Low 3.2-5.2 Globulin 3.3 g/dL N 2-4 Albumin/Globulin Ratio 0.9 Low 1-3 Total Bilirubin 0.30 mg/dL N 0.2-1.0 Alkaline Phosphatase 76 U/L N 34-104 Alt 17 U/L N 7-52 Ast 13 U/L N 13-39 Egfr Non- 11.3 >60 Egfr 13.6 >60 1 Potassium 5.7 mmol/L High 3.5-5.0 Anion Gap 8 mmol/L N 2-11 Laboratory test 02/23/2018 [facility] C Reactive 66.57 mg/L High <8.[address] [place] [address] [phone] Wound 02/10/2018 [facility] Wound/Misc SEE RESULT 2 Culture/Sensi [address] [place] [address] Stain [phone] Laboratory test 02/10/2018 [facility] MRSA/S. aureus SEE RESULT [address] [place] [address] [phone] 1 Because ethnic data is not always [...] [address]: Rosas Murphy MD Acct: [id number] Unit: [id number] AGE: 72 Location: ED Re02/10/18 SEX: M Status: REG ER SPEC: [id number] NICOLE: 02/10/[address]: Leta Hickman NP REQ: [id number] RECD: 02/10/18 STATUS: RES OTHR DR: Jl Brooks MD _ SOURCE: JACKSONLEFT SPDESC: ORDERED: Culture Stain Procedure Result Reported Site Wound/Misc Gram Stain Preliminary 02/10/18- 2217 ML No Neutrophils Observed 3+ Epithelial Cells 2+ Gram Positive Cocci in Clusters, resembling Staph Wound/Misc Culture PENDING * ML - Main Lab . END OF REPORT DEPARTMENT OF PATHOLOGY, [address] [place] [address] Sebas Sarmiento M.D. Director [facility] # [id number] 3 SEE RESULT BELOW Name: RICKIE EL : [address]: Mary Ibrahim MD Acct: [id number] Unit: [id number] AGE: 72 Location: [facility] 411-01 Re02/10/18 SEX: M Status: ADM IN SPEC: [id number] NICOLE: 02/10/18 [facility] [address]: Leta Hickman NP REQ: [id number] RECD: 02/10/18 STATUS: MARBELLA UGALDE DR: Jl [...] . END OF REPORT DEPARTMENT OF PATHOLOGY, [address] [place] [address] Sebas Sarmiento M.D. Director [facility] # [id number] Procedures Date Code Description Status 02/26/2018 33896 EKG, Interpretation Only Completed 02/24/2018 82399 ECHO Transthorasic Realtime 2D W Doppler & Color Flow Hosp Completed 02/24/2018 91423 EKG, Interpretation Only Completed Encounters Type Date Location Provider Dx Diagnosis Office Visit 04/16/2018 [facility] Kiara King, N18.5 Chronic kidney 10:00a MD disease, stage 5 D63.1 Anemia in chronic kidney disease E11.22 Type 2 diabetes mellitus w diabetic chronic kidney disease I10 Essential (primary) hypertension I25.10 Athscl heart disease of [place] coronary artery w/o ang pctrs E78.5 Hyperlipidemia, unspecified K21.9 Gastro-esophageal reflux disease without esophagitis E55.9 Vitamin D deficiency, unspecified Office Visit 03/02/2018 [facility] M86.172 Other acute 11:30a [facility] Celestin osteomyelitis, left C.M.A. ankle and foot M60.077 Infective myositis, left toe(s) Office Visit 03/02/2018 1:21p [facility] Mary I73.9 Peripheral Assoc,pc Ena Dave, vascular disease, Hospitalists TEAROOM HOST/HOSTESS unspecified E11.52 Type 2 diabetes w diabetic peripheral angiopathy w gangrene E11.29 Type 2 diabetes mellitus w oth diabetic kidney complication N17.9 Acute kidney failure, unspecified N13.2 Hydronephrosis with renal and ureteral calculous obstruction M86.9 Osteomyelitis, unspecified E11.69 Type 2 diabetes mellitus with other specified complication Office Visit 03/01/2018 [facility] Jl Ryan M86.172 Other acute 9:28a For Infectious Perla Jacobo osteomyelitis, left Diseases ankle and foot N17.9 Acute kidney failure, unspecified N18.9 Chronic kidney disease, unspecified R87.5 Abn microbiolog find in specmn from female genital organs N20.1 Calculus of ureter Office Visit 03/01/2018 [facility] Mary M86.172 Other acute 1:21p Assoc,pc [facility] osteomyelitis, left Hospitalists Jolie, TEAROOM HOST/HOSTESS ankle and foot E11.29 Type 2 diabetes mellitus w ot diabetic kidney complication N17.9 Acute kidney failure, unspecified D63.1 Anemia in chronic kidney disease Office Visit 03/01/2018 2:34p [facility] Min Seals, M87.078 [facility] [place] aseptic necrosis C.M.A. of left toe(s) M86.172 Other acute osteomyelitis, left ankle and foot Office Visit 02/28/2018 [facility] Rocío Hebert, M86.172 Other acute 1:20p Assoc,pc N.P. osteomyelitis, left Hospitalists ankle and foot D63.1 Anemia in chronic kidney disease E11.29 Type 2 diabetes mellitus w ot diabetic kidney complication N17.9 Acute kidney failure, unspecified L03.032 Cellulitis of left toe Office Visit 02/28/2018 2:33p [facility], M87.078 [facility] aseptic necrosis C.M.A. of left toe(s) M86.172 Other acute osteomyelitis, left ankle and foot Office Visit 02/27/2018 [facility] Rocío Hebert, N13.2 Hydronephrosis with 1:20p Assoc,pc N.P. renal and ureteral Hospitalists calculous obstruction M86.172 Other acute osteomyelitis, left ankle and foot N17.9 Acute kidney failure, unspecified E11.29 Type 2 diabetes mellitus w ot diabetic kidney complication D63.1 Anemia in chronic kidney disease Office Visit 02/26/2018 [facility] Jl Ryan E10.69 Type 1 diabetes 9:14a For Infectious Perla Jacobo mellitus with Diseases other specified complication M86.172 Other acute osteomyelitis, left ankle and foot N17.9 Acute kidney failure, unspecified N13.30 Unspecified hydronephrosis E87.5 Hyperkalemia Office Visit 02/26/2018 [facility] Rocío Hebert, N13.30 Unspecified 1:19p Assoc,pc N.P. hydronephrosis Hospitalists E11.29 Type 2 diabetes mellitus w oth diabetic kidney complication N17.9 Acute kidney failure, unspecified L03.032 Cellulitis of left toe M86.172 Other acute osteomyelitis, left ankle and foot Office Visit 02/26/2018 2:33p [facility] Min Seals M87.078 [facility] aseptic necrosis C.M.A. of left toe(s) M86.172 Other acute osteomyelitis, left ankle and foot Office Visit 02/25/2018 [facility] Jl Ryan E11.69 Type 2 diabetes 9:41a For Infectious Perla Jacobo mellitus with Diseases other specified complication M86.172 Other acute osteomyelitis, left ankle and foot E11.621 Type 2 diabetes mellitus with foot ulcer L97.529 Non-pressure chronic ulcer oth prt left foot w unsp severity N17.9 Acute kidney failure, unspecified Office Visit 02/25/2018 2:32p [facility] Jesu Fraire, E11.621 Type 2 Services Of diabetes C.M.A. 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 left toe Hospitalists E11.9 Type 2 diabetes mellitus without complications N17.9 Acute kidney failure, unspecified E78.5 Hyperlipidemia, unspecified Office Visit 02/24/2018 [facility] Alfred L03.032 Cellulitis of 1:12p Assoc,leonie Naranjo, N.P. left toe Hospitalists E11.9 Type 2 diabetes mellitus without complications N17.9 Acute kidney failure, unspecified Office Visit 02/24/2018 [facility] M86.172 Other acute 2:31p [facility] Celestin osteomyelitis, left C.M.A. ankle and foot Office Visit 02/24/2018 [facility] Jl Ryan N17.9 Acute kidney 8:50a For Infectious [place], failure, unspecified Diseases ArmaanDRose Marie N18.9 Chronic kidney disease, unspecified M60.077 Infective myositis, left toe(s) L03.032 Cellulitis of left toe M86.172 Other acute osteomyelitis, left ankle and foot E11.40 Type 2 diabetes mellitus with diabetic neuropathy, unsp Z79.2 deep fat cook fry (current) use of antibiotics R79.82 Elevated C-reactive protein (CRP) E11.22 Type 2 diabetes mellitus w diabetic chronic kidney disease E11.69 Type 2 diabetes mellitus with other specified complication [facility] L03.032 Cellulitis of 11:02a leonie Charlton MD left toe Hospitalists D64.9 Anemia, unspecified E11.22 Type 2 diabetes mellitus w diabetic chronic kidney disease N18.9 Chronic kidney disease, unspecified Office Visit 02/17/2018 11:23a [facility] Jesu Fraire L03.116 Cellulitis of Services Of left lower limb C.M.A. E11.8 Type 2 diabetes mellitus with unspecified complications Office Visit 02/17/2018 8:54a [facility] Inocencio Ryan E11.51 Type 2 diabetes Infectious Perla Jacobo w diabetic Diseases peripheral angiopath w/o gangrene L03.032 Cellulitis of left toe M60.077 Infective myositis, left toe(s) E11.40 Type 2 diabetes mellitus with diabetic neuropathy, unsp Office Visit 02/17/2018 11:01a [facility] L03.032 Cellulitis of leonie Charlton M.D. 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 D64.9 Anemia, unspecified I77.1 Stricture of artery Office Visit 02/16/2018 11:01a [facility] L03.032 Cellulitis of leonie Charlton M.D. 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 N18.9 Chronic kidney disease, unspecified D64.9 Anemia, unspecified Office Visit 02/16/2018 10:11a [facility] L03.032 Cellulitis of [facility] [place] left toe Office Visit 02/15/2018 11:01a [facility] Omar L03.032 Cellulitis of leonie Charlton M.D. 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 N18.9 Chronic kidney disease, unspecified D64.9 Anemia, unspecified Office Visit 02/15/2018 [facility] Celestin L03.032 Cellulitis of 9:30a Services Of Jonathan TRAORE left toe Office Visit 02/14/2018 [facility] Martha Yarbrough L03.032 Cellulitis of 11:00a leonie Charlton NP left toe Hospitalists N18.9 Chronic kidney disease, unspecified E11.22 Type 2 diabetes mellitus w diabetic chronic kidney disease N17.9 Acute kidney failure, unspecified Office Visit 02/13/2018 [facility] Leta L03.032 Cellulitis of 11:00a leonie Charlton NP left toe Hospitalists E11.9 Type 2 diabetes mellitus without complications I10 Essential (primary) hypertension Office Visit 02/13/2018 [facility] Jesu Fraire, L03.116 Cellulitis of 9:29a [facility] Jonathan GARNICA left lower limb [facility] Cellulitis of 11:00a leonie Charlton NP left toe Hospitalists E11.9 Type 2 diabetes mellitus without complications Office Visit 02/12/2018 9:29a [facility] Artie Farmer L03.032 Cellulitis of Services Of Jonathan RIVERA left toe Office Visit [facility]/11[facility]2018 [facility] Cellulitis of leonie Charlton NP left toe Hospitalists E11.9 Type 2 diabetes mellitus without complications [facility] L[facility] Cellulitis of 10:58a leonie Charlton NP 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 N18.9 Chronic kidney disease, unspecified Office Visit 02/10/2018 [facility] Celestin L03.032 Cellulitis of 12:09p Services Of Jonathan TRAORE left toe Office Visit 12/20/2017 [facility] L03.116 Cellulitis of 11:33a ,leonie Lorenzo, TEAROOM HOST/HOSTESS left lower limb Hospitalists E11.8 Type 2 diabetes mellitus with unspecified complications N17.9 Acute kidney failure, unspecified N18.3 Chronic kidney disease, stage 3 (moderate) Office Visit 12/19/2017 [facility] L03.116 Cellulitis of 11:13a ,leonie Lorenzo, TEAROOM HOST/HOSTESS left lower limb Hospitalists E11.8 Type 2 diabetes mellitus with unspecified complications N17.9 Acute kidney failure, unspecified N18.3 Chronic kidney disease, stage 3 (moderate) Office Visit 12/18/2017 [facility] L03.116 Cellulitis of 11:12a leonie Charlton, TEAROOM HOST/HOSTESS left lower limb Hospitalists E11.8 Type 2 diabetes mellitus with unspecified complications N17.9 Acute kidney failure, unspecified N18.3 Chronic kidney disease, stage 3 (moderate) Plan of Treatment Future Appointment(s):08/24/2018 10:10 am - [facility] - Jl Jacobo M.D.L97.529 Non- pressure chronic ulcer oth prt left foot w unsp severityComments:no current infection, call if redness or swelling; wound clinic evalReferral:Wound Clinic, Clinic/CenterFollow up:6 weeks
--- NOTE | 2018-07-19 14:04 | CONS ---
CC: Arnaldo Hannah MD; Dr. Brooks; Dr. Batista CONSULTATION REPORT: DATE OF CONSULT: 07/19/18 HISTORY OF PRESENT ILLNESS: Mr. El is a 73-year-old patient with a history of renal failure and hy pertension, diabetes, coronary artery disease, hyperlipidemia, who was getting out of the car the [facility] day after dialysis and felt the pop in his abdomen. This has been giving him increasing pain over the last 2 days. His appetite has been a little down. He is not having nausea or vomiting. He has had no fever or chills. He comes to the emergency room today for evaluation. He denies surgery in that region. PHYSICAL EXAM: On examination, abdomen is obese and soft. There is an obvious visible umbilical her jd with a trace of erythema. The hernia is about 2-3 cm across. The abdomen is otherwise benign to exam. There is no peritonitis or guarding. I discussed with him with his and I recommend an attempt at reduction of the hernia and they are understanding and agreeable to this approach. Therefore, gentle persistent pressure is placed on the hernia. It is uncomfortable for him, but with in about 10 seconds, it pops back in very easily. There was a palpable hernia defect just about like the tip of my finger may be 1.5 cm and I put a rolled up gauze on to that site and taped it down to help him keep it reduced. I discussed this with the emergency room physician and so long as he is feeling okay, we can discharg e him from the emergency room and I will see him in followup in the office for consideration of elect giana repair of his hernia. [id number]/[facility] #: [id number]
[2018-07-19 14:10] VITALS: BP 144/72
== END 2018-07-19 14:09 | disposition home or self-care (01) ==
LOC: ED 11:49
DX: K42.9 Umbilical hernia without obstruction or gangrene (principal); I25.10 Atherosclerotic heart disease of native coronary artery without angina pectoris; I10 Essential (primary) hypertension; Z95.5 Presence of coronary angioplasty implant and graft; Z95.1 Presence of aortocoronary bypass graft; Z96.651 Presence of right artificial knee joint; Z96.611 Presence of right artificial shoulder joint; Z82.49 Family history of ischemic heart disease and other diseases of the circulatory system; Z87.891 Personal history of nicotine dependence
CPT/HCPCS: 36415; 80048; 85025; 93005; 96360; 99282

== ENCOUNTER 2018-08-05 08:19 | Day surgery (SDC) | payer MEDICARE, OTHER ==
--- NOTE | 2018-08-02 20:36 | HP ---
CC: Dr. Priya Brooks * ADMISSION HISTORY AND PHYSICAL: DATE OF ADMISSION: 08/05/18 ATTENDING SURGEON: Dr. Arnaldo Hannah * (LEÓN Villanueva dictating) CHIEF COMPLAINT: Umbilical hernia. HISTORY OF PRESENT ILLNESS: This is a 73-year-old patient with multiple medical problems as noted below and with a longstanding umbilical bulge that been asymptomatic for a number of years. However, on 07/17/18, while getting into or out of his car, he felt a "pop" and subsequently had discomfort at the umbilicus. He presented to the ED on 07/19/18, at which time, he was seen by Dr. Hannah who found a tender umbilical hernia. He had no other symptoms or fever, chills, nausea, or vomiting. Dr. Hannah was able to reduce the hernia, which was approximately 2 to 3 cm across. The defect was palpable once the hernia was reduced and measured approximately 1.5 cm. A counter pressure dressing was placed and the patient was instructed to contact the office for scheduling of repair. Dr. Hannah has discussed with him the indications for repair. The risks, benefits, and alternatives and I have reviewed with him and his the expected perioperative course. He would like to proceed as scheduled with open repair umbilical hernia with mesh. PAST MEDICAL HISTORY: 1. Chronic kidney disease, on hemodialysis currently via right central line, but with recently placed left upper arm AV fistula (at [facility]). 2. In addition, he has a history of hypertension. 3. Hypertension. 4. Diabetes mellitus. 5. Coronary artery disease (status post 3 vessel CABG in October 2017 done at [facility] in [place]). 6. Peripheral vascular disease (status post amputation left second through fifth toes with partial transmetatarsal amputation of the second through fifth metatarsal heads and preservation of the left great toe February 2018). 7. He has anemia of chronic renal failure. 8. He has a history of nephrolithiasis. 9. Hyperlipidemia. PAST SURGICAL HISTORY: Include those noted above as well as: 1. Lithotripsy in 2018 for a renal stone. 2. He is status post bilateral cataract extraction. 3. Right total knee arthroplasty. 4. Right shoulder surgery. He denies any surgical or anesthesia complications. CURRENT MEDICATIONS: 1. Aspirin 325 mg once daily (he will continue perioperatively). 2. Calcium acetate 668 mg t.i.d. with meals. 3. Gemfibrozil 300 mg b.i.d. 4. Atorvastatin 40 mg daily. 5. Metoprolol succinate extended release 25 mg once daily. 6. Humalog 6 units subcutaneously t.i.d. with meals. 7. Oxygen generally just at home 2 L per minute nasal cannula. 8. Nitroglycerin 0.4 mg sublingual p.r.n. (he has never needed to use). DRUG ALLERGIES: None known. FAMILY HISTORY: Negative for anesthesia problems, bleeding or clotting disorders. SOCIAL HISTORY: The patient lives at home with his who is present today. 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 He is a former smoker who quit approximately 30 years ago. He denies use of alcohol or recreational drugs. REVIEW OF SYSTEMS: General: As noted above per the HPI. No recent constitutional symptoms in terms of fever or chills. He has been followed by Dr. Yanes and is attending the wound clinic regularly for debridement of open wound of the left foot. This will be addressed daily by his with [facility] and is apparently making progress. HEENT: He is edentulous, but uses only his full upper dentures. No other problems reported. Cardiovascular: No chest pain, palpitations. He is followed by a livestock slaughterer in [place], [place]. Respiratory: No history of asthma, chronic cough, or COPD. Smoking history as noted. GI: No problems reported. Colonoscopy approximately done within the past couple of years and apparently unremarkable. : Current renal failure. I did not ask him regarding urine output. He is on the Thursday, Thursday, Thursday, hemodialysis schedule. Endocrine: Diabetes. No thyroid dysfunction. PHYSICAL EXAMINATION GENERAL: Well-nourished, but chronically ill-appearing male, seated in wheelchair. He has a bandage intact on his left foot, which I did not change. He also has an Merlin wrap in placed over his right hand and forearm, apparently for support, but no open lesions by history. He is at times apparently somnolent with much of his history provided by his . VITAL SIGNS: Height 73 inches, weight 230 pounds. Blood pressure 124/60, pulse 72, respirations 16. HEENT: Edentulous with full upper dentures. No intraoral lesions lesions. NECK: No lymphadenopathy, thyromegaly or masses. LUNGS: Clear to auscultation. No rales or wheezes. HEART: Regular rate and rhythm. No murmur noted. Well healed median sternotomy. ABDOMEN: Umbilical hernia is noted which today is nontender and reducible. No other palpable masses or organomegaly. Limited exam performed. GENITALIA: Not done. RECTAL: Not done. BACK: No spinous process or CVA tenderness. EXTREMITIES: Trace edema bilaterally. Distal peripheral vascular exam was not performed nor was the left foot wound inspected. NEUROLOGICAL: Grossly intact, though, I suspect with some degree of diabetic neuropathy of lower extremities. SKIN: Warm and dry. No suspicious rashes or lesions noted. Full skin survey was not performed. IMPRESSION: Umbilical hernia. PLAN: Open repair of umbilical hernia with mesh. LEÓN VILLANUEVA [id number]/[facility] #: [id number] BHARATI
[~2018-08-05 08:19] MED LIST: Buffered Lidocaine 0.9% SYRIN* 5 ML/SYR SYRINGE INTRADERM ONE; DiMENhydriNATE IV* 50 MG/ML VIAL IV PUSH PRN; Famotidine IV* 10 MG/ML 2 ML (20 mg) IV ONE; Lactated Ringers 1000 ML Bag* 1,000 ML IV SCH; Morphine VIAL* 4 MG/ML VIAL (1 ml vial) IV PRN; NS 0.45% 1000 ML BAG* 1,000 ML IV SCH; Naloxone* 0.4 MG/ML 1 ML VIAL IV PRN; Ondansetron TAB* 4 MG PO ONE; PROCHLORPERAZINE INJ 5 MG/ML 2 ML VIAL IV PRN; fentaNYL* 50 MCG/ML 2 ML VIAL (100 MCG VIAL) IV PRN; oxyCODONE/Acetamin 5/325 MG* TAB PO PRN
[2018-08-05] MEDS ORDERED: Ondansetron ODT TAB* 4 MG ONE (08:28)
[2018-08-05] MEDS ORDERED: Famotidine IV* 10 MG/ML 2 ML (20 mg) ONE (08:28)
[2018-08-05] MEDS ORDERED: ceFAZolin 2 GM PREMIX in ORs 2 GM/50 ML BAG IVPB ONE (08:29)
[2018-08-05] MEDS ORDERED: KETAMINE HCL* 50 MG/ML 10 ML VIAL ONE (08:51)
[2018-08-05] MEDS ORDERED: Midazolam* 1 MG/ML 5 ML VIAL (5 MG) ONE (08:51)
[2018-08-05] MEDS ORDERED: fentaNYL* 50 MCG/ML 2 ML VIAL (100 MCG VIAL) ONE (08:51)
[2018-08-05] MEDS ORDERED: Bupivacaine 0.5% W/EPI SDV* 30 ML VIAL ONE (09:07)
[2018-08-05] MEDS ORDERED: Lidocaine 1% INJ* 10 MG/ML 30 ML SDV ONE (09:07)
[2018-08-05] MEDS ORDERED: Propofol* 10 MG/ML 20 ML BTL ONE (10:13)
[2018-08-05] MEDS ORDERED: Lidocaine 2% PF * 5 ML VIAL ONE (10:13)
[2018-08-05 11:37] VITALS: BP 129/67
--- NOTE | 2018-08-05 14:52 | OP ---
CC: Dr. Hannah; Dr. Brooks; Dr. Batista OPERATIVE REPORT: DATE OF OPERATION: 08/05/18 DATE OF : 43 SURGEON: Dr. Hannah. ANESTHESIOLOGIST: Dr. Boo. ANESTHESIA: LMAC anesthesia. PRE-OP DIAGNOSIS: Umbilical hernia. POST-OP DIAGNOSIS: Umbilical hernia. OPERATIVE PROCEDURE: Umbilical hernia repair with mesh. DESCRIPTION OF PROCEDURE: The patient was supine on the operating room table. After adequate intrave nous sedation, compression stockings, Usha Hugger warmer, and intravenous antibiotics, the abdomen wa s clipped and prepped with antiseptic, draped in a sterile fashion. Local infiltrative anesthesia wa s administered. Supraumbilical incision was created and dissection carried down to the hernia sac, wh ich was dissected free and reduced. It was still little edematous from the previous incarceration an d a little fibrotic as well. The defect was about 2 cm across. The preperitoneal plane was develope d. There was also a second defect just above this defect about 1 cm away. A 6.4 cm underlay patch w as utilized. It was sutured up underneath using #1 Vicryl. This was done circumferentially. The fa scia was then closed over the top with Vicryl and the umbilical fascia tacked back down with 0 Vicryl , 3-0 Vicryl was used for the adipose followed by 5-0 Vicryl for the skin followed by Steri-Strips an d a gauze dressing. He tolerated the procedure well, was awakened and brought to Recovery in good co ndition. No complications, no drains. No pathologic specimen. Sponge and instrument counts correct . Estimated blood loss 10 mL. [id number]/[facility] #: [id number]
== END 2018-08-05 11:40 | disposition home or self-care (01) ==
LOC: OR 08:19
PROVIDERS: ATTEND Surgery
DX: K42.9 Umbilical hernia without obstruction or gangrene (principal); N18.6 End stage renal disease; I12.9 Hypertensive chronic kidney disease with stage 1 through stage 4 chronic kidney disease, or unspecified chronic kidney disease; E11.21 Type 2 diabetes mellitus with diabetic nephropathy; Z79.4 Long term (current) use of insulin; Z87.891 Personal history of nicotine dependence; I25.10 Atherosclerotic heart disease of native coronary artery without angina pectoris; Z95.1 Presence of aortocoronary bypass graft; D63.1 Anemia in chronic kidney disease; E78.5 Hyperlipidemia, unspecified
CPT/HCPCS: A9270-GY; J0690; J2250; J2704; J3010

== ENCOUNTER 2018-09-02 20:15 | Inpatient (IN) | payer MEDICARE, OTHER ==
--- OUTSIDE RECORDS SUMMARY | 2018-09-02 20:47 | XMS REPORT | Continuity of Care Document ---
:1945 External Reference #:[id number] Author Name JoséDarya mukherjee Care Team Providers Name Role Phone Priya Brooks MD Primary Care Physician Unavailable Payers Type Date Identification Numbers Payment Provider Subscriber Policy Number: [id number] [facility] Health Ins Ppo/Epo Rickie El Group Number: [id number] [id number] Group Name: [place] [address] PayID: [id number] Advance Directives Description No Information Available Problems [...] Beard M.D. Active Onset: 02/25/2018 Hyperlipidemia Alfred Narnajo NOg Active Onset: 02/26/2018 Hydronephrosis Rocío Hebert N.P. Active Onset: 02/26/2018 Acute osteomyelitis of ankle Rocío Hebert N.P. Active and/or foot Onset: 02/27/2018 Anemia of chronic renal failure Rocío Hebert N.P. Active Onset: 03/02/2018 Peripheral vascular disease Mary Dave NP Active Onset: 03/02/2018 Type 2 diabetes mellitus with Mary DaveADDIE Active diabetic peripheral angiopathy without gangrene Onset: 03/02/2018 Ulcer of foot Mary LynchADDIE dominguez Active Onset: 03/02/2018 Type 2 diabetes mellitus with Mary DaveADDIE Active diabetic peripheral angiopathy with gangrene Onset: 03/02/2018 Osteomyelitis, unspecified Mary DaveADDIE Active Family History Date Family Member(s) Problem(s) Comments General Diabetes Social History Type Date Description Comments Sex Unknown Marital Status Lives With Spouse Occupation Currently Working ETOH Use Denies alcohol use Tobacco Use Start: Unknown End: Patient is a former quit at age 42 Unknown smoker Recreational Drug Use Denies Drug Use Smoking Status Reviewed: 08/24/18 Patient is a former quit at age 42 smoker Exercise Type/Frequency Does not exercise Allergies, Adverse Reactions, Alerts Description No Known Drug Allergies Medications Medication Date Status Form Strength Qnty SIG Indications Ordering Provider Metoprolol Succinate / Active Tablets 25mg 1 by Unknown ER 0000 ER 24HR mouth once a day Atorvastatin Calcium / Active Tablets 40mg by Crepet, 0000 mouth MD Priya twice a day Nitroglycerin / Active Tablets 0.4mg Unknown 0000 Sub Humalog Kwikpen / Active Solution 100Unit/M Todd, 0000 Pen-Injec Alicia Powers MD t Gemfibrozil / Active Tablets 300mg take Unknown 0000 one tablet by mouth twice a day Calcium Acetate / Active Tablets 668(169Ca 1 tab Unknown 0000 ) mg by mouth three times a day Zach Aspirin / Active Tablets 325mg take 1 Unknown 0000 tab daily Acetaminophen-Codeine 08/02/ Hx Tablets 300-30mg 10tab 1 Love Angel #3 2019 s tablet Foster, every 4 MD hours as needed for pain Ceftriaxone Sodium / Hx Solution 2gm 2 grams Unknown 0000 - Rec daily 07/12/ iv at 2018 [facility] Amlodipine Besylate / Hx Tablets 5mg 1 by Unknown 0000 - mouth 07/12/ 2017 day Omeprazole / Hx Capsules 20mg 1 by Unknown 0000 - DR mouth 07/12/ 2017 day Acetaminophen-Codeine / Hx Tablets 300-30mg Bell #3 0000 Alberto marquez MD Ciprofloxacin HCL /00/ Hx Tablets 500mg Villagonz 0000 - jimmy, 2017 Clindamycin HCL 00/ Hx Capsules 300mg Villagonz 0000 - jimmy, Alberto2017 Meloxicam / Hx Tablets 15mg Villagonz 0000 - jimmy, 2017 Lisinopril / Hx Tablets 30mg Crepiper 0000 Steven Powers MD 2017 Gemfibrozil / Hx Tablets 600mg CreSubhash saldaña MD 2017 Tresiba Flextouch / Hx Solution 100Unit/M Todd 0000 - Pen-Injec Alicia Powers MD 2017 Torsemide / Hx Tablets 20mg Unknown - 2017 Niacin ER / Hx Tablets 500mg Unknown (Antihyperlipidemic) 0000 - ER 2017 Klor-Con M20 / Hx Tablets 20Meq Unknown 0000 - ER 2017 Amiodarone HCL / Hx Tablets 200mg Unknown - 2017 Hydrochlorothiazide / Hx Tablets 25mg Todd 0000 Steven Powers MD 2017 Metformin HCL 00/ Hx Tablets 1000mg Todd 0000 Steven Powers MD 2017 Immunizations Description No Information Available Vital Signs Date Vital Result Comment 08/24/2018 10:26am Height 73 inches 6'1" Weight 234.00 lb per pt Heart Rate 84 /min BP Systolic Sitting 104 mmHg BP Diastolic Sitting 58 mmHg Respiratory Rate 14 /min Body Temperature 97.8 F BMI (Body Mass Index) 30.9 kg/m2 08/13/2018 1:09pm Heart Rate 72 /min BP Systolic 148 mmHg BP Diastolic 78 mmHg Respiratory Rate 18 /min Body Temperature 98.5 F 08/02/2018 1:03pm Height 73 inches 6'1" Weight 230.00 lb Heart Rate 72 /min BP Systolic 124 mmHg BP Diastolic 60 mmHg Respiratory Rate 16 /min Body Temperature 96.8 F BMI (Body Mass Index) 30.3 kg/m2 2018 11:21am Height 73 inches 6'1" Weight [...] Date Facility Test Result H/L Range Note Laboratory test 08/05/2018 [facility] Point of Care 122 mg/dL High 70-100 [address] [address] [phone] CBC Auto Diff 02/23/2018 [facility] White Blood 9.7 10^3/uL N 3.5-10.[address] [place] [address] [phone] Red Blood Count 3.52 10^6/uL Low 4.00-5.40 [...] Cells % 0 Comp Metabolic Panel 02/23/2018 [facility] Sodium 133 mmol/L Low 135-[address] [place] [address] [phone] Chloride 103 mmol/L N 101-111 Co2 Carbon [...] Egfr Non- 11.3 >60 Egfr 13.6 >60 2 Potassium 5.7 mmol/L High 3.5-5.0 Anion Gap 8 mmol/L N 2-11 Laboratory test 02/23/2018 [facility] C Reactive 66.57 mg/L High <8.[address] [place] [address] [phone] Wound 02/10/2018 [facility] Wound/Misc SEE RESULT 3 Culture/Sensi [address] [place] [address] Stain [phone] Laboratory test 02/10/2018 [facility] MRSA/S. aureus SEE RESULT [address] Ssti PCR BELOW [place], [place] [id number] [phone] 1 Net C Developer: [id number] 2 Because ethnic data is not always readily [...] 15-29 5 Kidney failure <15 (or dialysis) 3 SEE RESULT BELOW Name: RICKIE EL : [address]: Rosas Murphy MD Acct: [id number] Unit: [id number] AGE: 72 Location: ED Re02/10/18 SEX: M Status: REG ER SPEC: [id number] NICOLE: 02/10/[address]: Leta Hickman NP REQ: [id number] RECD: 02/10/18 STATUS: MILTON UGALDE DR: Jl Brooks MD _ SOURCE: FOOT,LEFT SPDESC: ORDERED: Culture Stain Procedure Result Reported Site Wound/Misc Gram Stain Preliminary 02/10/18- 2217 ML No Neutrophils Observed 3+ Epithelial Cells 2+ Gram Positive Cocci in Clusters, resembling Staph Wound/Misc Culture PENDING * ML - Main Lab . END OF REPORT DEPARTMENT OF PATHOLOGY, [address] [place] [address] Sebas Sarmiento M.D. Director [facility] # [id number] 4 SEE RESULT BELOW Name: RICKIE EL : [address]: Mary Ibrahim MD Acct: [id number] Unit: [id number] AGE: 72 Location: [facility] [id number] Re02/10/18 SEX: M Status: ADM IN SPEC: [id number] NICOLE: 02/10/[address]: Leta Marylou ADDIE REQ: [id number] RECD: 02/10/18 STATUS: MARBELLA UGALDE DR: Jl Brooks MD _ SOURCE: FOOT,LEFT SPDESC: ORDERED: MRSA/SA SSTI, Culture Stain Procedure Result Reported Site MRSA/S. aureus SSTI PCR Final 02/10/18- 2351 ML Organism 1 MRSA NEGATIVE Organism 2 S.AUREUS NEGATIVE Wound/Misc Gram Stain Final 02/11/18- 0807 ML No Neutrophils Observed 3+ Epithelial Cells 3+ Gram Positive Cocci in Clusters, resembling Staph Wound/Misc Culture Final 02/14/18- 1142 ML Organism 1 NORMAL SOL Quantity 1+ No predominating organism. Mixed anaerobes; unable to isolate for further identification. * ML - Main Lab . END OF REPORT DEPARTMENT OF PATHOLOGY, [address] [place] [address] Sebas Sarmiento M.D. Director [facility] # [id number] Procedures Date Code Description Status 08/17/2018 90391 Debridement Skin,& sq Tissue Completed 08/10/2018 82684 Debridement Skin,& sq Tissue Completed 08/05/2018 01779 Repair Hernia Umbilical > 5 Yrs, Reducible Completed 08/03/2018 50211 Debridement Skin,& sq Tissue Completed 07/29/2018 29947 Debridement Skin,& sq Tissue Completed 02/26/2018 34742 EKG, Interpretation Only Completed 02/24/2018 29497 ECHO Transthorasic Realtime 2D W Doppler & Color Flow Hosp Completed 02/24/2018 40465 EKG, Interpretation Only Completed Encounters Type Date Location Provider Dx Diagnosis Office Visit 07/29/2018 [facility] Daily, E11.621 Type 2 diabetes 2:00[place] [facility] mellitus with foot ulcer 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 without obstruction or gangrene Office Visit 2018 9:10a [facility] Inocencio Ryan L97.529 Non- pressure Infectious [place], chronic ulcer oth Diseases M.DRose Marie prt left foot w unsp severity E11.9 Type 2 diabetes mellitus without complications T81.89xD Oth complications of procedures, NEC, subs Z89.422 Acquired absence of other left toe(s) Office Visit 04/16/2018 10:00a [facility] Kiara King, N18.5 Chronic kidney MD disease, stage 5 D63.1 Anemia in chronic kidney disease E11.22 Type 2 diabetes mellitus w diabetic chronic kidney disease I10 Essential (primary) hypertension 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 ankle and foot M60.077 Infective myositis, left toe(s) Office Visit 03/02/2018 1:21p [facility] I73.9 Peripheral Assoc,[facility] Jolie, vascular disease, Hospitalists [employer]OX [employer] unspecified E11.52 Type 2 diabetes w diabetic peripheral angiopathy w gangrene E11.29 Type 2 diabetes mellitus w oth diabetic kidney complication N17.9 Acute kidney failure, unspecified N13.2 Hydronephrosis with renal and ureteral calculous obstruction M86.9 Osteomyelitis, unspecified E11.69 Type 2 diabetes mellitus with other specified complication Office Visit 03/01/2018 [facility] Jl Ryan M86.172 Other acute 9:28a For Infectious Perla Jacobo osteomyelitis, left Diseases ankle and foot N17.9 Acute kidney failure, unspecified N18.9 Chronic kidney disease, unspecified R87.5 Abn microbiolog find in specmn from female genital organs N20.1 Calculus of ureter [facility] M[facility]172 Other acute 1:21p Ass,[facility] osteomyelitis, left Hospitalists Jolie, [employer] ankle and foot E11.29 Type 2 diabetes mellitus w oth diabetic kidney complication N17.9 Acute kidney failure, unspecified D63.1 Anemia in chronic kidney disease Office Visit 03/01/2018 2:34p [facility] Min Seals M87.078 [facility] aseptic necrosis C.M.A. of left toe(s) M86.172 Other acute osteomyelitis, left ankle and foot Office Visit 02/28/2018 2:33p [facility] Se[facility] M87.078 [facility] aseptic necrosis C.M.A. of left toe(s) M86.172 Other acute osteomyelitis, left ankle and foot Office Visit 02/28/2018 [facility] Rocío Hebert M86.172 Other acute 1:20p Assoc, N.P. osteomyelitis, left Hospitalists ankle and foot D63.1 Anemia in chronic kidney disease E11.29 Type 2 diabetes mellitus w oth diabetic kidney complication N17.9 Acute kidney failure, unspecified L03.032 Cellulitis of left toe Office Visit 02/27/2018 [facility], N13.2 Hydronephrosis with 1:20p Assoc,pc N.P. renal and ureteral Hospitalists calculous obstruction M86.172 Other acute osteomyelitis, left ankle and foot N17.9 Acute kidney failure, unspecified E11.29 Type 2 diabetes mellitus w oth diabetic kidney complication D63.1 Anemia in chronic kidney disease Office Visit 02/26/2018 [facility] Anup, N13.30 Unspecified 1:19p Assoc,pc N.P. hydronephrosis Hospitalists E11.29 Type 2 diabetes mellitus w oth diabetic kidney complication N17.9 Acute kidney failure, unspecified L03.032 Cellulitis of left toe M86.172 Other acute osteomyelitis, left ankle and foot Office Visit 02/26/2018 [facility] Jl Ryan E10.69 Type 1 diabetes 9:14a For Yong Jacobo M.D. mellitus with Diseases other specified complication M86.172 Other acute osteomyelitis, left ankle and foot N17.9 Acute kidney failure, unspecified N13.30 Unspecified hydronephrosis E87.5 Hyperkalemia Office Visit 02/26/2018 2:33p [facility] Min Seals, M87.078 [facility] aseptic necrosis C.M.A. of left toe(s) M86.172 Other acute osteomyelitis, left ankle and foot Office Visit 02/25/2018 [facility] Alfred L03.032 Cellulitis of 1:19p Assoc,pc Naranjo, N.P. left toe Hospitalists E11.9 Type 2 diabetes mellitus without complications N17.9 Acute kidney failure, unspecified E78.5 Hyperlipidemia, unspecified Office Visit 02/25/2018 2:32p [facility] Jesu Fraire, E11.621 Type 2 Services Of diabetes C.M.A. 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 mellitus with Diseases other specified complication M86.172 Other acute osteomyelitis, left ankle and foot E11.621 Type 2 diabetes mellitus with foot ulcer L97.529 Non-pressure chronic ulcer oth prt left foot w unsp severity N17.9 Acute kidney failure, unspecified Office Visit 02/24/2018 8:50a [facility] Inocencio Ryan N17.9 Acute kidney Infectious Perla Jacobo failure, Diseases unspecified N18.9 Chronic kidney disease, unspecified M60.077 Infective myositis, left toe(s) L03.032 Cellulitis of left toe M86.172 Other acute osteomyelitis, left ankle and foot E11.40 Type 2 diabetes mellitus with diabetic neuropathy, unsp Z79.2 senior care (current) use of antibiotics R79.82 Elevated C-reactive protein (CRP) E11.22 Type 2 diabetes mellitus w diabetic chronic kidney disease E11.69 Type 2 diabetes mellitus with other specified complication Office Visit 02/24/2018 [facility] M86.172 Other acute 2:31p [facility] San osteomyelitis, left ankle and foot Office Visit 02/24/2018 [facility] Alfred L03.032 Cellulitis of left 1:12p Assoc,leonie Naranjo, toe Hospitalists N.P. E11.9 Type 2 diabetes mellitus without complications N17.9 Acute kidney failure, unspecified Office Visit 02/18/2018 [facility] Candido Disla L03.032 Cellulitis of 11:02a Assjudit,leonie Sloan MD left toe Hospitalists D64.9 Anemia, unspecified E11.22 Type 2 diabetes mellitus w diabetic chronic kidney disease N18.9 Chronic kidney disease, unspecified Office Visit 02/17/2018 11:01a [facility] Omar L03.032 Cellulitis of Assoc,leonie Beard M.D. 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 w diabetic Diseases peripheral angiopath w/o gangrene L03.032 Cellulitis of left toe M60.077 Infective myositis, left toe(s) E11.40 Type 2 diabetes mellitus with diabetic neuropathy, unsp Office Visit 02/17/2018 11:23a Orthopedic Jesu Fraire L03.116 Cellulitis of Services Of left lower limb Jonathan E11.8 Type 2 diabetes mellitus with unspecified complications Office Visit 02/16/2018 11:01a [facility] Omar L03.032 Cellulitis of leonie Charlton M.D. 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 N18.9 Chronic kidney disease, unspecified D64.9 Anemia, unspecified Office Visit 02/16/2018 10:11a [facility] Vargas03.032 Cellulitis of [facility] [place] left toe Office Visit 02/15/2018 11:01a [facility] Omar L03.032 Cellulitis of leonie Charlton M.D. 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 N18.9 Chronic kidney disease, unspecified D64.9 Anemia, unspecified Office Visit 02/15/2018 [facility] Celestin L03.032 Cellulitis of 9:30a [facility] Jonathan TRAORE left toe Office Visit 02/14/2018 [facility] Martha Yarbrough L03.032 Cellulitis of 11:00a leonie Charlton NP left toe Hospitalists N18.9 Chronic kidney disease, unspecified E11.22 Type 2 diabetes mellitus w diabetic chronic kidney disease N17.9 Acute kidney failure, unspecified Office Visit 02/13/2018 [facility] Leta L03.032 Cellulitis of 11:00a leonie Charlton NP left toe Hospitalists E11.9 Type 2 diabetes mellitus without complications I10 Essential (primary) hypertension Office Visit 02/13/2018 Meenu Fraire L03.116 Cellulitis of 9:29a [facility] Jonathan GARNICA left lower limb Office Visit 02/12/2018 [facility] Leta L03.032 Cellulitis of 11:00a leonie Charlton NP left toe Hospitalists E11.9 Type 2 diabetes mellitus without complications Office Visit 02/12/2018 9:29a [facility] Arite Rosano, L03.032 Cellulitis of Services [facility] Jonathan RIVERA left toe [facility] of Assoc,pc Marylou, [employer] left toe Hospitalists E11.9 Type 2 diabetes mellitus without complications Office Visit 02/10/2018 12:09p [facility] L03.032 Cellulitis of [facility] [place] left toe Office Visit 02/10[facility]2018 [facility]ulitis of Assoc,pc Marylou, [employer] 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 N18.9 Chronic kidney disease, unspecified Office Visit 12/20/2017 [facility] L03.116 Cellulitis of 11:33a Assoc,leonie Lorenzo, [employer] left lower limb Hospitalists E11.8 Type 2 diabetes mellitus with unspecified complications N17.9 Acute kidney failure, unspecified N18.3 Chronic kidney disease, stage 3 (moderate) Office Visit 12/19/2017 [facility] L03.116 Cellulitis of 11:13a Assjudit,leonie Lorenzo, [employer] left lower limb Hospitalists E11.8 Type 2 diabetes mellitus with unspecified complications N17.9 Acute kidney failure, unspecified N18.3 Chronic kidney disease, stage 3 (moderate) Office Visit 12/18/2017 [facility] L03.116 Cellulitis of 11:12a Assjudit,leonie Martinez, [employer] left lower limb Hospitalists E11.8 Type 2 diabetes mellitus with unspecified complications N17.9 Acute kidney failure, unspecified N18.3 Chronic kidney disease, stage 3 (moderate) Plan of Treatment 08/24/2018 - Jl Jacobo M.D.Z86.19 Personal history of other infectious and parasitic diseasesComments:no signs or symptoms of infection aafcsoijqH33.621 Type 2 diabetes mellitus with foot nxetlE32.0 Lymphedema, not elsewhere classifiedRecommendations:uriah wrap during the day time
--- OUTSIDE RECORDS SUMMARY | 2018-09-02 20:47 | XMS REPORT | Continuity of Care Document ---
:1945 External Reference #:[id number] Author Name Shaniqua Dickinson Care Team Providers Name Role Phone Priya Brooks MD Primary Care Physician Unavailable Payers Type Date Identification Numbers Payment Provider Subscriber Policy Number: [id number] [facility] Health Ins Ppo/Epo Rickie El Group Number: [id number] Group Name: [place] [address] PayID: [id number] Advance Directives Description No Information Available Problems [...] 03/02/2018 Type 2 diabetes mellitus with Mary Noblefield Jolie NP Active diabetic peripheral angiopathy without gangrene Onset: 03/02/2018 Ulcer of foot Mary [place] Jolie NP Active Onset: 03/02/2018 Type 2 diabetes mellitus with Mary [place] Jolie NP Active diabetic peripheral angiopathy with gangrene Onset: 03/02/2018 Osteomyelitis, unspecified Mary [place]field Jolie NP Active Family History Date Family Member(s) Problem(s) Comments General Diabetes Social History Type Date Description Comments Sex Unknown Marital Status Lives With Spouse Occupation Currently Working ETOH Use Denies alcohol use Tobacco Use Start: Unknown End: Patient is a former quit at age 42 Unknown smoker Recreational Drug Use Denies Drug Use Smoking Status Reviewed: 08/13/18 Patient is a former quit at age [...] Unknown 0000 - DR mouth 2017 day Acetaminophen-Codeine / Hx Tablets 300-30mg Villagonz #3 0000 Alberto marquez [...] - 2017 Hydrochlorothiazide / Hx Tablets 25mg Subhash Brooks MD 2017 Metformin HCL 00/ Hx Tablets 1000mg Subhash Brooks MD 2017 Immunizations Description No Information Available Vital Signs Date Vital Result Comment 08/13/2018 1:09pm Heart Rate 72 /min BP [...] Result H/L Range Note Laboratory test 08/05/2018 [facility] Point of Care 122 mg/dL High 70-100 [address] [place] [address] [phone] CBC Auto Diff 02/23/2018 [facility] White Blood 9.7 10^3/uL N 3.5-10.[address] [place] [address] [phone] Red Blood Count 3.52 10^6/uL Low 4.00-5.40 [...] Cells % 0 Comp Metabolic Panel 02/23/2018 [facility] Sodium 133 mmol/L Low 135-[address] [place] [address] [phone] Chloride 103 mmol/L N 101-111 Co2 Carbon [...] 8 mmol/L N 2-11 Laboratory test 02/23/2018 [facility] C Reactive 66.57 mg/L High <8.[address] Protein [place], [place] [address] [phone] Wound 02/10/2018 [facility] Wound/Misc SEE RESULT 3 Culture/Sensi [address] [place] [address] Stain [phone] Laboratory test 02/10/2018 [facility] MRSA/S. aureus SEE RESULT [address] [place] [address] [phone] 1 Spreader Box Operator: [id number] 2 Because ethnic data is not always [...] 3 SEE RESULT BELOW Name: RICKIE EL Mercedes : [address]: Rosas Murphy MD Acct: [id number] Unit: [id number] AGE: 72 Location: ED Re02/10/18 SEX: M Status: REG ER SPEC: [id number] NICOLE: 02/10/[address]: Leta Hickman NP REQ: [id number] RECD: 02/10/18 STATUS: RES AFTAB DR: Jl Brooks MD _ SOURCE: FOOT,LEFT SPDESC: ORDERED: Culture Stain Procedure Result Reported Site Wound/Misc Gram Stain Preliminary 02/10/182217 ML No Neutrophils Observed 3+ Epithelial Cells 2+ Gram Positive Cocci in Clusters, resembling Staph Wound/Misc Culture PENDING * ML - Main Lab . END OF REPORT DEPARTMENT OF PATHOLOGY, [address] [place] [address] Sebas Sarmiento M.D. Director [facility] # [id number] 4 SEE RESULT BELOW Name: RICKIE EL : [address]: Mary Ibrahim MD Acct: [id number] Unit: [id number] AGE: 72 Location: [facility] 411-01 Re02/10/18 SEX: M Status: ADM IN SPEC: [id number] NICOLE: 02/10/[address]: Leta Marylou ADDIE REQ: [id number] RECD: 02/10/18 STATUS: MARBELLA UGALDE DR: Jl [...] . END OF REPORT DEPARTMENT OF PATHOLOGY, [address] [place] [address] Sebas Sarmiento M.D. Director [facility] # [id number] Procedures Date Code Description Status 08/10/2018 41797 Debridement Skin,& sq Tissue Completed 08/05/2018 98798 Repair Hernia Umbilical > 5 Yrs, Reducible Completed 08/03/2018 57239 Debridement Skin,& sq Tissue Completed 07/29/2018 41750 Debridement Skin,& sq Tissue Completed 02/26/2018 70452 EKG, Interpretation Only Completed 02/24/2018 83693 ECHO Transthorasic Realtime 2D W Doppler & Color Flow Hosp Completed 02/24/2018 67190 EKG, Interpretation Only Completed Encounters Type Date Location Provider Dx Diagnosis Office Visit 07/29/2018 [facility] Popeye Daily, E11.621 Type 2 diabetes 2:00p AT [facility] MChristy mellitus with foot ulcer 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 without obstruction or gangrene Office Visit 2018 9:10a [facility] Ryan L97.529 Non- pressure Infectious [place], chronic ulcer oth Diseases M.DRose Marie prt left foot w unsp severity E11.9 Type 2 diabetes mellitus without complications T81.89xD Oth complications of procedures, NEC, subs Z89.422 Acquired absence of other left toe(s) Office Visit 04/16/2018 10:00a [facility] Kiara King, N18.5 Chronic kidney MD disease, stage 5 D63.1 Anemia in chronic kidney disease E11.22 Type 2 diabetes mellitus w diabetic chronic kidney disease I10 Essential (primary) hypertension I25.10 Athscl heart disease of [place] coronary artery w/o ang pctrs E78.5 Hyperlipidemia, unspecified K21.9 Gastro-esophageal reflux disease without esophagitis E55.9 Vitamin D deficiency, unspecified Office Visit 03/02/2018 [facility] M86.172 Other acute 11:30a [facility] Celestin osteomyelitis, left C.M.A. ankle and foot M60.077 Infective myositis, left toe(s) Office Visit 03/02/2018 1:21p [facility] I73.9 Peripheral Assoc,leonie Lyncho, vascular disease, Hospitalists MOLD BLOWER unspecified E11.52 Type 2 diabetes w diabetic peripheral angiopathy w gangrene E11.29 Type 2 diabetes mellitus w oth diabetic kidney complication N17.9 Acute kidney failure, unspecified N13.2 Hydronephrosis with renal and ureteral calculous obstruction M86.9 Osteomyelitis, unspecified E11.69 Type 2 diabetes mellitus with other specified complication Office Visit 03/01/2018 [facility] Jl Ryan M86.172 Other acute 9:28a For Infectious Perla Jacobo osteomyelitis, left Diseases ankle and foot N17.9 Acute kidney failure, unspecified N18.9 Chronic kidney disease, unspecified R87.5 Abn microbiolog find in specmn from female genital organs N20.1 Calculus of ureter Office Visit 03/01/2018 [facility] M86.172 Other acute 1:21p Assocleonie osteomyelitis, left Hospitalists Dotangelica, MOLD BLOWER ankle and foot E11.29 Type 2 diabetes [...] left ankle and foot [facility] M86.172 Other acute 1:20p Assoc,pc N.P. osteomyelitis, left Hospitalists ankle and foot D63.1 Anemia in chronic kidney disease E11.29 Type 2 diabetes mellitus w oth diabetic kidney complication N17.9 Acute kidney failure, unspecified L03.032 Cellulitis of left toe Office Visit 02/27/2018 [facility] Rocío Hebert, N13.2 Hydronephrosis with 1:20p Assoc,pc N.P. renal and ureteral Hospitalists calculous obstruction M86.172 Other acute osteomyelitis, left ankle and foot N17.9 Acute kidney failure, unspecified E11.29 Type 2 diabetes mellitus w oth diabetic kidney complication D63.1 Anemia in chronic kidney disease Office Visit 02/26/2018 [facility] Rocío Hebert, N13.30 Unspecified 1:19p Assoc,pc N.P. hydronephrosis Hospitalists E11.29 Type 2 diabetes mellitus w oth diabetic kidney complication N17.9 Acute kidney failure, unspecified L03.032 Cellulitis of left toe M86.172 Other acute osteomyelitis, left ankle and foot Office Visit 02/26/2018 [facility] Jl Ryan E10.69 Type 1 diabetes 9:14a For Infectious Perla Jacobo mellitus with Diseases other specified complication M86.172 Other acute osteomyelitis, left ankle and foot N17.9 Acute kidney failure, unspecified N13.30 Unspecified hydronephrosis E87.5 Hyperkalemia Office Visit 02/26/2018 2:33p [facility] Min Seals M87.078 [facility] aseptic necrosis C.M.A. of left toe(s) M86.172 Other acute osteomyelitis, left ankle and foot Office Visit 02/25/2018 [facility] Alfred L03.032 Cellulitis of 1:19p Assoc,leonie Naranjo, N.P. left toe Hospitalists E11.9 Type 2 diabetes mellitus without complications N17.9 Acute kidney failure, unspecified E78.5 Hyperlipidemia, unspecified Office Visit 02/25/2018 2:32p [facility]opedic Jesu Fraire, E11.621 Type 2 Services Of diabetes C.M.A. 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) Office Visit 02/25/2018 [facility] Jl Ryan E11.69 Type 2 diabetes 9:41a For Infectious Perla Jacobo mellitus with Diseases other specified complication M86.172 Other acute osteomyelitis, left ankle and foot E11.621 Type 2 diabetes mellitus with foot ulcer L97.529 Non-pressure chronic ulcer oth prt left foot w unsp severity N17.9 Acute kidney failure, unspecified Office Visit 02/24/2018 8:50a [facility] Inocencio Ryan N17.9 Acute kidney Infectious Perla Jacobo failure, Diseases unspecified N18.9 Chronic kidney disease, unspecified M60.077 Infective myositis, left toe(s) L03.032 Cellulitis of left toe M86.172 Other acute osteomyelitis, left ankle and foot E11.40 Type 2 diabetes mellitus with diabetic neuropathy, unsp Z79.2 [facility] (current) use of antibiotics R79.82 Elevated C-reactive protein (CRP) E11.22 Type 2 diabetes mellitus w diabetic chronic kidney disease E11.69 Type 2 diabetes mellitus with other specified complication Office Visit 02/24/2018 [facility] M86.172 Other acute 2:31p [facility] San osteomyelitis, left ankle and foot Office Visit 02/24/2018 [facility] Alfred L03.032 Cellulitis of left 1:12p Assleonie spain, toe Hospitalists N.PRose Marie E11.9 Type 2 diabetes mellitus without complications N17.9 Acute kidney failure, unspecified Office Visit 02/18/2018 [facility] Candido Disla L03.032 Cellulitis of 11:02a Assocleonie MD left toe Hospitalists D64.9 Anemia, unspecified E11.22 Type 2 diabetes mellitus w diabetic chronic kidney disease N18.9 Chronic kidney disease, unspecified [facility]17[facility]2018 [facility]ulitis of Assocleonie M.D. 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 D64.9 Anemia, unspecified I77.1 Stricture of artery Office Visit 02/17/2018 8:54a [facility] Inocencio Ryan E11.51 Type 2 diabetes Infectious Perla Jacobo w diabetic Diseases peripheral angiopath w/o gangrene L03.032 Cellulitis of left toe M60.077 Infective myositis, left toe(s) E11.40 Type 2 diabetes mellitus with diabetic neuropathy, unsp Office Visit 02/17/2018 11:23a [facility] Jesu Fraire L03.116 Cellulitis of Services Of left lower limb Jonathan E11.8 Type 2 diabetes mellitus with unspecified complications [facility] Cellulitis of leonie Charlton M.D. 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 N18.9 Chronic kidney disease, unspecified D64.9 Anemia, unspecified Office Visit 02/16/2018 10:11a [facility] Blanca L03.032 Cellulitis of [facility] San left toe Office Visit 02/15/2018 11:01a [facility] Omar L03.032 Cellulitis of leonie Charlton M.D. 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 N18.9 Chronic kidney disease, unspecified D64.9 Anemia, unspecified Office Visit 02/15/2018 [facility] Celestin L03.032 Cellulitis of 9:30a [facility] Jonathan TRAORE left toe Office Visit 02/14/2018 [facility] Martha Yarbrough L03.032 Cellulitis of 11:00a leonie Charlton NP left toe Hospitalists N18.9 Chronic kidney disease, unspecified E11.22 Type 2 diabetes mellitus w diabetic chronic kidney disease N17.9 Acute kidney failure, unspecified Office Visit 02/13/2018 [facility] Leta L03.032 Cellulitis of 11:00a leonie Charlton NP left toe Hospitalists E11.9 Type 2 diabetes mellitus without complications I10 Essential (primary) hypertension Office Visit 02/13/2018 [facility] Jesu Fraire L03.116 Cellulitis of 9:29a [facility] Jonathan GARNICA left lower limb Office Visit 02/12/2018 [facility] Leta L03.032 Cellulitis of 11:00a leonie Charlton NP left toe Hospitalists E11.9 Type 2 diabetes mellitus without complications Office Visit 02/12/2018 9:29a Orthopedic Alicia Howell03.032 Cellulitis of Services Of Jonathan RIVERA left toe Office Visit 02/11/2018 10:59a [facility] Leta L03.032 Cellulitis of leonie Charlton NP left toe Hospitalists E11.9 Type 2 diabetes mellitus without complications Office Visit 02/10/2018 12:09p [facility] Blanca L03.032 Cellulitis of [facility] San left toe Office Visit 02/10/2018 10:58a [facility] Leta L03.032 Cellulitis of Assoc,leonie Hickman NP 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 N18.9 Chronic kidney disease, unspecified Office Visit 12/20/2017 [facility] L03.116 Cellulitis of 11:33a leonie Charlton NP left lower limb Hospitalists E11.8 Type 2 diabetes mellitus with unspecified complications N17.9 Acute kidney failure, unspecified N18.3 Chronic kidney disease, stage 3 (moderate) Office Visit 12/19/2017 [facility] L03.116 Cellulitis of 11:13a leonie Charlton NP left lower limb Hospitalists E11.8 Type 2 diabetes mellitus with unspecified complications N17.9 Acute kidney failure, unspecified N18.3 Chronic kidney disease, stage 3 (moderate) Office Visit 12/18/2017 [facility] Martha Yarbrough L03.116 Cellulitis of 11:12a leonie Charlton NP left lower limb Hospitalists E11.8 Type 2 diabetes mellitus with unspecified complications N17.9 Acute kidney failure, unspecified N18.3 Chronic kidney disease, stage 3 (moderate) Plan of Treatment Future Appointment(s):08/24/2018 10:10 am - Jl Jacobo M.D. at [facility]/18/2019 - Donell Cooper, PAK42.9 Umbilical hernia without obstruction or gangreneFollow up:As needed
[2018-09-02] MEDS ORDERED: Piperacillin/Tazobac ADVAN(*) 3.375 GM in NS 0.9% 100 ML* 100 ML IVPB ONE (22:26)
[2018-09-02] MEDS ORDERED: oxyCODONE/Acetamin 5/325 MG* TAB PO ONE (22:27)
[2018-09-02] MEDS ORDERED: Vancomycin(*) 1,000 MG in NS 0.9% 250 ML* 250 ML IVPB ONE (22:27)
--- NOTE | 2018-09-02 22:30 | ED ---
Skin Complaint - HPI Summary HPI Summary: Pt is a 73 y/o M presenting to the ED with a chief complaint of a rash on his L lower leg. It was sore this morning but he did not notice anything, then he noticed it when he took his pants off tonight. Pt reports pain in the rash area and 4 of his left toes amputated, which are still healing and he goes to wound care for. The pt denies fever, nausea, and vomiting. - History of Current Complaint Chief Complaint: EDExtremityLower Time Seen by Provider: 09/02/18 22:16 Stated Complaint: LT LEG SWOLLEN Hx Obtained From: Patient Onset/Duration: Started Hours Ago, Still Present Skin Exposure Onset/Duration: Hours Ago Timing: Constant, Lasting Hours Onset Severity: Severe Current Severity: Severe Pain Intensity: 10 Pain Scale Used: 0-10 Numeric Skin Location: Leg - left Character: Swelling, Pain, Redness Aggravating Symptom(s): Touch Alleviating Symptom(s): Nothing Associated Signs & Symptoms: Rash - Additional Pertinent History Primary Care Physician: SMILEY - Allergy/Home Medications Allergies/Adverse Reactions: Allergies Allergy/AdvReac Type Severity Reaction Status Date / Time No Known Allergies Allergy Verified 09/02/18 22:46 PMH/Surg Hx/FS Hx/Imm Hx Previously Healthy: No Endocrine/Hematology History: Reports: Hx Diabetes Denies: Hx Thyroid Disease Cardiovascular History: Reports: Hx Coronary Artery Disease, Hx Hypertension Denies: Hx Pacemaker/ICD Respiratory History: Reports: Other Respiratory Problems/Disorders - OXYGEN 2L VIA NASAL CANNULA//FLUID BASE OF LUNG Denies: Hx Asthma, Hx Chronic Obstructive Pulmonary Disease (COPD) GI History: Reports: Hx Hiatal Hernia Denies: Hx Ulcer History: Reports: Hx Kidney Stones Musculoskeletal History: Reports: Other Musculoskeletal History - Right total knee, right shoulder Sensory History: Reports: Hx Cataracts - removed, Hx Contacts or Glasses, Other Sensory Impairments Denies: Hx Hearing Aid Opthamlomology History: Reports: Hx Cataracts - removed, Hx Contacts or Glasses , Other Sensory Impairments Psychiatric History: Denies: Hx Panic Disorder - Surgical History Surgery Procedure, Year, and Place: Knee replacement right knee. right shoulder replacement. fingers left hand repair. cardiac stents - 2008. cardiac bypass 11/12/17. CATARACTS. Lt HAND - 2 & 3RD FINGERS REATTACHED Hx Anesthesia Reactions: No Infectious Disease History: No Infectious Disease History: Denies: Hx Clostridium Difficile, Hx Hepatitis, Hx Human Immunodeficiency Virus (HIV), History Other Infectious Disease, Traveled Outside the [place] in Last 30 Days - Family History Known Family History: Positive: Cardiac Disease, Hypertension - Social History Alcohol Use: None Hx Substance Use: No Substance Use Type: Reports: None Hx Tobacco Use: Yes Smoking Status (MU): Former Smoker Type: Cigarettes Amount Used/How Often: 1 PPD X 12 YEARS Have You Smoked in the Last Year: No Review of Systems Negative: Fever Negative: Vomiting, Nausea Positive: Rash All Other Systems Reviewed And Are Negative: Yes Physical Exam - Summary Physical Exam Summary: VITAL SIGNS: Reviewed. GENERAL: Patient is a well-developed and nourished male who is lying comfortable in the stretcher. Patient is not in any acute respiratory distress. HEAD AND FACE: No signs of trauma. No ecchymosis, hematomas or skull depressions. No sinus tenderness. EYES: PERRLA, EOMI x 2, No injected conjunctiva, no nystagmus. EARS: Hearing grossly intact. Ear canals and tympanic membranes are within normal limits. MOUTH: Oropharynx within normal limits. NECK: Supple, trachea is midline, no adenopathy, no JVD, no carotid bruit, no c- spine tenderness, neck with full ROM. CHEST: Symmetric, no tenderness at palpation LUNGS: Clear to auscultation bilaterally. No wheezing or crackles. CVS: Regular rate and rhythm, S1 and S2 present, no murmurs or gallops appreciated. ABDOMEN: Soft, non-tender. No signs of distention. No rebound no guarding, and no masses palpated. Bowel sounds are normal. EXTREMITIES: L lower leg is erythematous, tender, warm, and has edema. Toes 2, 3 , 4, and 5 are amputated, and there are two small chronic ulcers at the amputation sites. NEURO: Alert and oriented x 3. No acute neurological deficits. Speech is normal and follows commands. SKIN: Dry and warm Triage Information Reviewed: Yes Vital Signs On Initial Exam: Initial Vitals Temp Pulse Resp BP Pulse Ox 98.9 F 69 18 154/52 97 09/02/18 20:19 09/02/18 20:19 09/02/18 20:19 09/02/18 20:19 09/02/18 20:19 Vital Signs Reviewed: Yes Diagnostics - Vital Signs Vital Signs Temp Pulse Resp BP Pulse Ox 09/02/18 20:19 98.9 F 69 18 154/52 97 - Laboratory Result Diagrams: 09/02/18 22:49 09/02/18 22:49 Lab Statement: Any lab studies that have been ordered have been reviewed, and results considered in the medical decision making process. - Ultrasound No standard instances Ultrasound Interpretation Completed By: Radiologist Summary of Ultrasound Findings: LLE Venous doppler study. No LLE DVT. ED physician has reviewed this report. Course/Dx - Course Course Of Treatment: Pt is a 73 y/o M presenting to the ED with a chief complaint of a rash on his L lower leg. It was sore this morning but he did not notice anything, then he noticed it when he took his pants off tonight. Pt reports pain in the rash area and 4 of his left toes amputated, which are still healing and he goes to wound care for. The pt denies fever, nausea, and vomiting. Venous doppler study reveals no DVT in the LLE. Pt will be admitted to [facility] under Dr. Lee with a dx of cellulitis. - Diagnoses Provider Diagnoses: Cellulitis Discharge - Sign-Out/Discharge Documenting (check all that apply): Patient Departure - Discharge Plan Condition: Stable Disposition: ADMITTED TO [facility] Referrals: Priya Brooks MD [Primary Care Provider] - - Attestation Statements Document Initiated by Scribe: Yes Documenting Scribe: Triny Arguello Provider For Whom Scribe is Documenting (Include Credential): Archie De Los Santos MD. Scribe Attestation: Triny Tello scribed for Archie De Los Santos MD. on 09/03/18 at 0038. Status of Scribe Document: Ready Consult Consult: 0030 - Spoke with Dr. Lee about the pt's condition who will be the accepting physician to [facility]. Diagnosis cellulitis.
[2018-09-02 23:00] LABS: Hematocrit 35 % (42-52); Hemoglobin 11.1 g/dl (14.0-18.0); Mean Corpuscular HGB Conc 31 g/dl (31-36); Mean Corpuscular Hemoglobin 29 pg (27-31); Mean Corpuscular Volume 91 fL (80-94); Red Blood Count 3.88 10^6/ul (4.00-5.40); Red Cell Distribution Width 18 % (10.5-15); White Blood Count 13.3 10^3/ul (3.5-10.8)
[2018-09-02 23:05] LABS: Activated Partial Thrombo Time 18.3 seconds (26.0-36.3); INR 1.18 (0.77-1.02)
[2018-09-02 23:06] LABS: Albumin 3.2 g/dL (3.2-5.2); Calcium 9.1 mg/dL (8.6-10.3); Potassium 3.8 mmol/L (3.5-5.0); Total Bilirubin 0.6 mg/dL (0.2-1.0)
[2018-09-02 23:12] LABS: Albumin/Globulin Ratio 0.9 (1-3); BUN/Creatinine Ratio 11.7 (8-20); C Reactive Protein 138.92 mg/L (<8.01); EGFR African American 18.8 (>60); EGFR Non-African American 15.5 (>60); Globulin 3.6 g/dL (2-4); Total Protein 6.8 g/dL (6.4-8.9)
[2018-09-02 23:32] LABS: ABS Basophils 0.1 10^3/ul (0-0.2); ABS Eosinophils 0 10^3/ul (0-0.6); ABS Lymphocytes 0.5 10^3/ul (1.0-4.8); ABS Monocytes 0.5 10^3/ul (0-0.8); ABS Neutrophils 12.1 10^3/ul (1.5-7.7); ABS Nucleated RBC 0 10^3/ul; Eosinophil % 0.3 %; Nucleated Red Blood Cells % 0; Platelet Count 149 10^3/ul (150-450)
[2018-09-03] MEDS ORDERED: Piperacillin/Tazobac ADVAN(*) 3.375 GM in NS 0.9% 100 ML* 100 ML IVPB ONE (02:16)
[2018-09-03] MEDS ORDERED: Vancomycin(*) 1,000 MG in NS 0.9% 250 ML* 250 ML IVPB SCH (02:17)
[2018-09-03] MEDS ORDERED: Ondansetron INJ* 2 MG/ML VIAL IV PRN (02:18)
[2018-09-03] MEDS ORDERED: Zosyn per Pharmacy* NOTE FOLLOW UP SCH (03:00)
[2018-09-03] MEDS ORDERED: Vancomycin per Pharmacy* NOTE FOLLOW UP SCH (03:00)
[2018-09-03] MEDS ORDERED: VANCOMYCIN IVPB ONE (03:30)
[2018-09-03] MEDS ORDERED: NS 0.9% IVPB ONE (03:30)
[2018-09-03] MEDS: Morphine INJ* 2 MG/ML 1 ML SYRINGE (TWO MG - NEW SYRINGE VERSION) IV PRN ×2 (04:17→20:28)
[2018-09-03] MEDS: ZOSYN 3.375 GM Q12H per EXTENDED INFUSION IVPB SCH ×4 (04:21→04:26)
--- NOTE | 2018-09-03 04:48 | HP ---
CC: Dr. Batista; Dr. Priya Brooks HISTORY AND PHYSICAL: DATE OF ADMISSION: 09/03/18 PRIMARY CARE PROVIDER: Dr. Priya Brooks. DOCKWORKER: Dr. Batista. CHIEF COMPLAINT: Infection at the left leg. HISTORY OF PRESENT ILLNESS: This is a 73-year-old male with past medical history of type 2 diabetes, on insulin; chronic kidney, on hemodialysis Thursday, Thursday, and Thursday; coronary artery disease, vascular disease, who now comes to the emergency room because of findings suggestive of a left leg cellulitis. The patient reports that for the past 24 hours he noted that he is having excruciating pain at the left leg associated with redness and warmth of the left leg. He reports that he has a chronic wound at the left foot, for which he sees the wound clinic, does dressing. The patient does not have any fevers, no chills. He thought that he was having an infection of the leg, so he decided to come to the emergency room for further evaluation and care. PAST MEDICAL HISTORY: 1. Type 2 diabetes, on insulin. Diabetes complicated by vascular complications. 2. Chronic kidney disease, on hemodialysis Thursday, Thursday, and Thursday. 3. Coronary artery disease with CABG. 4. Chronic oxygen requirement at home, O2 at 2 L nasal cannula. 5. Peripheral vascular disease 6. Prior osteomyelitis PAST SURGICAL HISTORY: Umbilical hernia, AV fistula, left toe amputation, CABG. MEDICATIONS: Home medications include: 1. Gemfibrozil 1 tablet twice a day. 2. Lipitor 80 mg daily. 3. Metoprolol succinate 25 mg in the morning. 4. Lispro 6 units subcutaneous with meals 2 times a day. 5. Aspirin 325 mg daily. 6. Oxygen at 2 L nasal cannula continuous. ALLERGIES: No known drug allergies. FAMILY HISTORY: Both parents had cancer. SOCIAL HISTORY: He lives at home with his , former smoker. No alcohol use. REVIEW OF SYSTEMS: No fevers, no chills. Does not have any changes in his hearing or vision, no sore throat. Does not have any chest pain, no shortness of breath, no palpitations, no cough, no sputum production, no abdominal pain, no nausea, no vomiting, no diarrhea, no changes in his urinary habits. He is on dialysis and makes little urine, no burning upon urination, no hesitancy. He is having left leg pain, otherwise no other pain. No back pain, no headaches. Does not have any focal weakness or numbness. PHYSICAL EXAMINATION GENERAL: This is an obese male, well developed, well nourished, lying in an ER stretcher, in no acute distress. VITAL SIGNS: Blood pressure is 107/56, heart rate of 61, respiratory rate of 14 , saturation of 98% on 2 L nasal cannula, temperature of 98.9 Fahrenheit. HEENT: Pupils are equal, round, and reactive to light. Atraumatic, normocephalic. Oral mucosa is moist. There is no nystagmus. There is no oropharyngeal erythema. There is no cervical lymphadenopathy. LUNGS: There is no tachypnea. No use of accessory muscles. Lungs are clear to auscultation bilaterally without any wheezing, rales, or rhonchi. HEART: There is no chest wall tenderness. Regular rate and rhythm. There is a 2/6 systolic murmur best heard at the apex. ABDOMEN: Bowel sounds are normoactive in all 4 quadrants. Abdomen is soft, nontender, nondistended. EXTREMITIES: There is moderate erythema as well as warmth and tenderness of the left lower extremity. At the left foot, an area with open lesion without any tenderness or erythema is present with serous drainage. Dorsalis pedis is 2 + on the right side. Patient has extensive amputation noted on the left foot. LABS AND IMAGING: White blood cell count of 13.3 with a count of 149, hemoglobin of 11.1, crit of 35. INR of 1.18, APTT of 18.3, BUN of 45, creatinine of 3.83, bicarb of 27, glucose of 131, CRP of 138.92. The patient had an ultrasound of the lower extremity done on the left side, which was negative for DVT. IMPRESSION AND PLAN: 1. Right lower extremity cellulitis: In a patient with prior history of osteomyelitis as well as chronic left wound ulcer and a diabetic. We will start the patient on vancomycin, Zosyn. I will obtain an MRI of the left lower extremity to rule out osteomyelitis. Blood cultures have been sent. I did discuss with pharmacy regarding renal dosing of his vancomycin and Zosyn. 2. Diabetes: Type 2 diabetes with vascular as well as kidney complications: Continue home dose of lispro, diabetic diet. Monitor his fingersticks. 3. Coronary artery disease with coronary artery bypass grafting: Continue aspirin, statin, and gemfibrozil. 4. Chronic hypoxic respiratory failure, on home oxygen at 2 L, continue the same. 5. Chronic kidney disease: The patient is on hemodialysis Thursday, Thursday, and Thursday. We will need to call Nephrology in the morning to get the dialysis resumed. 6. Deep venous thrombosis prophylaxis in the form of heparin subcutaneously. 7. We will start the patient on diabetic diet. [id number]/[facility] #: [id number] [facility] HOSPITALCarolyne
[2018-09-03] MEDS ORDERED: Vancomycin Random Level* NOTE FOLLOW UP ONE (06:00)
[2018-09-03] MEDS: Heparin VIAL(*) 5000 UNITS/ML VIAL (FIVE THOUSAND) SUBCUT SCH ×2 (09:27→20:33)
[2018-09-03] MEDS: Atorvastatin* 80 MG TAB PO SCH (09:28)
[2018-09-03] MEDS: Insulin LISPRO* 1 UNITS UNIT SUBCUT SCH ×3 (09:28→18:08)
[2018-09-03] MEDS: Metoprolol Succinate XL TAB* 25 MG PO SCH (09:28)
--- NOTE | 2018-09-03 10:33 | PN ---
Subjective Date of Service: 09/03/18 Interval History: Pt continues to have pain in LLE. He states that this all started yesterday, when he noticed his skin was warm, red, and painful to touch. He has h/o 4 toe amputation on affected foot, as well as h/o osteomyelitis. He has 4 nonhealing ulcers on the LLE that are managed by wound clinic every thursday. Currently, his pain is a 7-8/10. He states that pain is relatively well controlled with pain medications. Pain intensifies when anything touches the leg, including blankets. He denies CP, SOB, cough, fever/chills/sweats, abd pain, n/v/d/c, pain in upper extremities or RLE. He c/o back pain from laying in bed and pain in LLE. B/l LE edema. Pt is a CKD patient who typically receives dialysis M, W, F. Objective Active Medications: Acetaminophen (Tylenol Tab*) 650 mg PO Q6H PRN Aspirin (Aspirin Tab*) 325 mg PO QPM [facility] Atorvastatin Calcium (Lipitor*) 80 mg PO QAM [facility] Gemfibrozil (Lopid Tab*) 600 mg PO BID [facility] Heparin Sodium (Porcine) (Heparin Vial(*)) 5,000 units SUBCUT Q12HR [facility] Piperacillin Sod/Tazobactam (Sod 3.375 gm/ Sodium Chloride) 100 mls @ 25 mls/ hr IVPB Q12H [facility] Insulin Human Lispro (Humalog*) 6 units SUBCUT TID WITH MEALS [facility] Metoprolol Succinate (Toprol Xl Tab*) 25 mg PO QAM [facility] Morphine Sulfate (Morphine Inj ((Syringe))*) 2 mg IV Q6H PRN Ondansetron HCl (Zofran Inj*) 4 mg IV Q6H PRN Oxycodone/Acetaminophen (Percocet 5/325 Tab*) 1 tab PO Q6H PRN Pharmacy Consult (Vancomycin Per Pharmacy*) 1 note FOLLOW UP .VANC PER PHARMACY [facility] Pharmacy Consult (Zosyn Per Pharmacy*) 1 note FOLLOW UP .ZOSYN PER PHARMACY [facility] Vital Signs: Temp Pulse Resp BP Pulse Ox 97.9 F 58 16 112/46 95 09/03/18 07:16 09/03/18 07:16 09/03/18 08:00 09/03/18 07:16 09/03/18 08:00 Oxygen Devices in Use Now: Nasal Cannula - 2L Appearance: Pt is laying in bed with HOB slightly elevated. He is in no acute distress. Eyes: No Scleral Icterus, PERRLA Ears/Nose/Mouth/Throat: NL Teeth, Lips, Gums, Clear Oropharnyx, Mucous Membranes Moist Neck: NL Appearance and Movements; NL JVP Respiratory: Symmetrical Chest Expansion and Respiratory Effort, Clear to Auscultation Cardiovascular: NL Sounds; No Murmurs; No JVD, RRR Abdominal: NL Sounds; No Tenderness; No Distention, No Hepatosplenomegaly Extremities: No Clubbing, Cyanosis, - - Weak peripheral pulses. Dialysis port in LUE. B/l LE with PAD skin changes and 2+ pitting edema. LLE is erythematous to around knee joint, not well-demarcated, TTP. Dressing CDI. L foot digits 2-5 are amputated; 2 small ulcers at sites of amputation. Dressings removed, revealing 2 small ulcerations less than 2 cm on the foot at heel and medial malleolus. Result Diagrams: 09/02/18 22:49 09/02/18 22:49 Assess/Plan/Problems-Billing Assessment: Pateint is a 74yom with PMHx DMII, CKD, CAD, PVD, chronic hypoxic respiratory failure requiring 2L home oxygen, and h/o osteomyelitis and who presents with LLE cellulitis. - Patient Problems (1) Cellulitis Comment: -MRI- cellulitis vs myositis; no evidence of osteomyelitis, abscess; LLE US negative for DVT -Elevate b/l LE -D/c vanco, zosyn -Start Cefazolin today after dialysis -Continue pain control (2) CKD (chronic kidney disease) Comment: -Pt has M, W, F dialysis schedule -Dialysis will be done today (3) Type 2 diabetes mellitus Comment: -Only BS is 125, as pt was just admitted -Continue current home regimen of 6U ac lispo, diabetic diet -Continue to monitor AC blood glucose (4) Coronary artery disease Comment: -Continue asa, atorvastatin, gemfibrozil (5) Chronic respiratory failure with hypoxia Comment: -In no acute distress or exacerbation -Continue 2L per NC, as at home (6) DVT prophylaxis Comment: - SQ heparin Status and Disposition: Inpatient. Discharge once stable.
[2018-09-03] MEDS: Gemfibrozil TAB* 600 MG PO SCH ×2 (11:14→20:20)
[2018-09-03] MEDS: oxyCODONE/Acetamin 5/325 MG* TAB PO PRN ×2 (12:20→18:21)
[2018-09-03] MEDS ORDERED: Heparin DIALYSIS ONLY(*) 1,000 UNITS/ML VIAL DIALYSIS ONE (13:00)
[2018-09-03] MEDS: Sevelamer TAB* 800 MG PO SCH ×2 (13:10→18:08)
[2018-09-03] MEDS ORDERED: Vancomycin(*) 1,000 MG in NS 0.9% 250 ML* 250 ML IVPB ONE (15:00)
[2018-09-03] MEDS: ceFAZolin 1 GM ADVAN(*) 1 GM in NS 0.9% 50 ML* 50 ML IVPB SCH (16:12)
[2018-09-03] MEDS: Aspirin TAB* 325 MG PO SCH (18:08)
[2018-09-03] MEDS ORDERED: Calcium Carbonate CHEW TAB* 500 MG (TUMS) ONE (20:19)
[2018-09-03] MEDS: Calcium Carbonate CHEW TAB* 500 MG (TUMS) PO PRN (20:20)
[2018-09-04 06:16] LABS: ABS Basophils 0.1 10^3/ul (0-0.2); ABS Eosinophils 0.3 10^3/ul (0-0.6); ABS Lymphocytes 0.7 10^3/ul (1.0-4.8); ABS Monocytes 0.6 10^3/ul (0-0.8); ABS Neutrophils 5.5 10^3/ul (1.5-7.7); ABS Nucleated RBC 0 10^3/ul; Eosinophil % 3.5 %; Hematocrit 34 % (42-52); Hemoglobin 10.8 g/dl (14.0-18.0); Lymphocyte % 10.3 %; Mean Corpuscular HGB Conc 32 g/dl (31-36); Mean Corpuscular Hemoglobin 29 pg (27-31); Mean Corpuscular Volume 92 fL (80-94); Nucleated Red Blood Cells % 0; Platelet Count 169 10^3/ul (150-450); Red Cell Distribution Width 18 % (10.5-15); White Blood Count 7.2 10^3/ul (3.5-10.8)
[2018-09-04 06:42] LABS: BUN/Creatinine Ratio 9.3 (8-20); C Reactive Protein 208.51 mg/L (<8.01); Calcium 8.7 mg/dL (8.6-10.3); EGFR African American 20.4 (>60); EGFR Non-African American 16.9 (>60); Potassium 4.1 mmol/L (3.5-5.0)
[2018-09-04] MEDS: Morphine INJ* 2 MG/ML 1 ML SYRINGE (TWO MG - NEW SYRINGE VERSION) IV PRN ×2 (09:21→21:06)
[2018-09-04] MEDS: Metoprolol Succinate XL TAB* 25 MG PO SCH (09:24)
[2018-09-04] MEDS: Sevelamer TAB* 800 MG PO SCH ×3 (09:24→18:03)
[2018-09-04] MEDS: Heparin VIAL(*) 5000 UNITS/ML VIAL (FIVE THOUSAND) SUBCUT SCH ×2 (09:24→21:05)
[2018-09-04] MEDS: Atorvastatin* 80 MG TAB PO SCH (09:24)
[2018-09-04] MEDS: Gemfibrozil TAB* 600 MG PO SCH ×2 (09:25→21:04)
[2018-09-04] MEDS: Insulin LISPRO* 1 UNITS UNIT SUBCUT SCH ×3 (09:25→18:52)
--- NOTE | 2018-09-04 10:57 | PN ---
Subjective Date of Service: 09/04/18 Interval History: Pt c/o pain in left leg in the past 2-3 days due to the cellulitis. Objective Active Medications: Acetaminophen (Tylenol Tab*) 650 mg PO Q6H PRN PRN Reason: FEVER/PAIN Aspirin (Aspirin Tab*) 325 mg PO QPM [facility] Last Admin: 09/03/18 18:08 Dose: 325 mg Atorvastatin Calcium (Lipitor*) 80 mg PO QAM [facility] Last Admin: 09/04/18 09:24 Dose: 80 mg Calcium Carbonate (Tums*) 500 mg PO BID PRN PRN Reason: INDIGESTION Last Admin: 09/03/18 20:20 Dose: 500 mg Gemfibrozil (Lopid Tab*) 600 mg PO BID [facility] Last Admin: 09/04/18 09:25 Dose: 600 mg Heparin Sodium (Porcine) (Heparin Vial(*)) 5,000 units SUBCUT Q12HR [facility] Last Admin: 09/04/18 09:24 Dose: 5,000 units Cefazolin Sodium 1 gm/ Sodium (Chloride) 50 mls @ 200 mls/hr IVPB MOWEFR [facility] Last Admin: 09/03/18 16:12 Dose: 200 mls/hr Insulin Human Lispro (Humalog*) 6 units SUBCUT TID WITH MEALS [facility] Last Admin: 09/04/18 09:25 Dose: 6 units Metoprolol Succinate (Toprol Xl Tab*) [facility] [place] Last Admin: 09/04/18 09:24 Dose: 25 mg Morphine Sulfate (Morphine Inj ((Syringe))*) 2 mg IV Q6H PRN PRN Reason: PAIN - SEVERE Last Admin: 09/04/18 09:21 Dose: 2 mg Ondansetron HCl (Zofran Inj*) 4 mg IV Q6H PRN PRN Reason: NAUSEA Oxycodone/Acetaminophen (Percocet 5/325 Tab*) 1 tab PO Q6H PRN PRN Reason: PAIN Last Admin: 09/03/18 18:21 Dose: 1 tab Sevelamer Carbonate (Renvela Tab*) 1,600 mg PO 0845,[id number],1745 [facility] Last Admin: 09/04/18 09:24 Dose: 1,600 mg Vital Signs - 8 hr 09/04/18 09/04/18 09/04/18 04:02 07:35 09:21 Temperature 97.6 F 97.5 F Pulse Rate 56 56 Respiratory 20 20 16 Rate Blood Pressure 130/60 112/33 (mmHg) O2 Sat by Pulse 98 100 Oximetry Oxygen Devices in Use Now: Nasal Cannula Appearance: 73 yo M in nAD, aAOx3 Eyes: No Scleral Icterus, PERRLA Ears/Nose/Mouth/Throat: NL Teeth, Lips, Gums, Mucous Membranes Moist Neck: NL Appearance and Movements; NL JVP, Trachea Midline Respiratory: Symmetrical Chest Expansion and Respiratory Effort, Clear to Auscultation Cardiovascular: NL Sounds; No Murmurs; No JVD, RRR Abdominal: NL Sounds; No Tenderness; No Distention, No Hepatosplenomegaly Lymphatic: No Cervical Adenopathy Extremities: No Clubbing, Cyanosis, - - left distal LE ans calf edema . No increased warmth, cellulitis appears paller and extends from lefdt foot to the knee. L foot s/o toe2-4 amputation with what appears to be chronic small wound in the area s/o 2nd and 3rd toe amputation-crack like fissure 3 cm in lenght Skin: No Nodules or Sclerosis, - - see above Neurological: Alert and Oriented x 3, NL Muscle Strength and Tone Result Diagrams: 09/04/18 05:54 09/04/18 05:54 Microbiology and Other Data: Microbiology 09/03/18 19:35 Skin and Soft Tissue MRSA/MSSA (PCR - Final Foot Left Mrsa Negative S.aureus Positive Gram Stain - Final 09/02/18 22:33 Aerobic Blood Culture - Preliminary Blood Venous No Growth Day 1 Anaerobic Blood Culture - Preliminary No Growth Day 1 09/02/18 22:49 Aerobic Blood Culture - Preliminary Blood Venous No Growth Day 1 Anaerobic Blood Culture - Preliminary No Growth Day 1 Assess/Plan/Problems-Billing Assessment: Pateint is a 74yom with PMHx DMII, CKD, CAD, PVD, chronic hypoxic respiratory failure requiring 2L home oxygen, and h/o osteomyelitis and who presents with LLE cellulitis. - Patient Problems (1) Cellulitis Comment: -MRI- cellulitis vs myositis; no evidence of osteomyelitis, abscess; LLE US negative for DVT, arterial dopplers doen in 03/13 showing diffuse 50 % stenosis of most of blood vessels in L LE -Elevate b/l LE -D/c'd arnoldo jaime 09/03/18 -Cefazolin after dialysis on HD days -Continue pain control (2) Chronic respiratory failure with hypoxia Comment: -In no acute distress or exacerbation -Continue 2L per NC, as at home (3) Anemia Comment: - Stable, normocytic anemia, suspect anemia of chronic disease and CKD (4) PAD (peripheral artery disease) Comment: - Per vascular studies in 02/2018 patient has severe calcified vasculopathy of all arteries of the left lower extremity with 50 % stenosis (5) HTN (hypertension) Comment: - controlled - Continue metoprolol (6) Type 2 diabetes mellitus Comment: -Continue current home regimen of 6U ac lispo, diabetic diet -Continue to monitor AC blood glucose (7) ESRD (end stage renal disease) Comment: -Pt has M, W, F dialysis schedule -dialysis access tunneled cath in R chest (8) DVT prophylaxis Comment: - SQ heparin Status and Disposition: Inpatient.
[2018-09-04 15:16] LABS: Urine Appearance Turbid; Urine Bacteria Absent (Absent); Urine Bilirubin Negative (Negative); Urine Blood 2+ (Negative); Urine Color Yellow; Urine Glucose Negative (Negative); Urine Ketones Negative (Negative); Urine Nitrite Negative (Negative); Urine Protein 2+(100 mg/dL) (Negative); Urine Red Blood Cell 3+(>10/hpf) (Absent); Urine Specific Gravity 1.018 (1.010-1.030); Urine Urobilinogen Negative (Negative); Urine White Blood Cell 3+(>20/hpf) (Absent)
[2018-09-04] MEDS: Aspirin TAB* 325 MG PO SCH (18:03)
[2018-09-04] MEDS: oxyCODONE/Acetamin 5/325 MG* TAB PO PRN (18:22)
[2018-09-04] MEDS ORDERED: Benzocaine/Menthol LOZ* 1 LOZENGE PO PRN (20:09)
[2018-09-05] MEDS: oxyCODONE/Acetamin 5/325 MG* TAB PO PRN ×2 (04:43→20:44)
[2018-09-05] MEDS: Morphine INJ* 2 MG/ML 1 ML SYRINGE (TWO MG - NEW SYRINGE VERSION) IV PRN ×2 (09:17→18:13)
[2018-09-05] MEDS: Heparin VIAL(*) 5000 UNITS/ML VIAL (FIVE THOUSAND) SUBCUT SCH ×2 (09:34→21:39)
[2018-09-05] MEDS: Gemfibrozil TAB* 600 MG PO SCH ×2 (09:34→20:50)
[2018-09-05] MEDS: Metoprolol Succinate XL TAB* 25 MG PO SCH (09:34)
[2018-09-05] MEDS: Sevelamer TAB* 800 MG PO SCH ×3 (09:34→18:07)
[2018-09-05] MEDS: Atorvastatin* 80 MG TAB PO SCH (09:34)
--- NOTE | 2018-09-05 09:39 | PN ---
Subjective Date of Service: 09/05/18 Interval History: Pt 's leg still hurts, but a little less then yesterday. Pt stated that the cellulitis started after wound care visit/procedure Erythema is improved greatly Labs reviewed, show creat on 0.6-suspect the sample was mislabeled from another pt. Called lab and notified. Objective Active Medications: Acetaminophen (Tylenol Tab*) 650 mg PO Q6H PRN PRN Reason: FEVER/PAIN Aspirin (Aspirin Tab*) 325 mg PO QPM [facility] Last Admin: 09/04/18 18:03 Dose: 325 mg Atorvastatin Calcium (Lipitor*) 80 mg PO QAM [facility] Last Admin: 09/05/18 09:34 Dose: 80 mg Calcium Carbonate (Tums*) 500 mg PO BID PRN PRN Reason: INDIGESTION Last Admin: 09/03/18 20:20 Dose: 500 mg Gemfibrozil (Lopid Tab*) 600 mg PO BID [facility] Last Admin: 09/05/18 09:34 Dose: 600 mg Heparin Sodium (Porcine) (Heparin Vial(*)) 5,000 units SUBCUT Q12HR [facility] Last Admin: 09/05/18 09:34 Dose: 5,000 units Cefazolin Sodium 1 gm/ Sodium (Chloride) 50 mls @ 200 mls/hr IVPB MOWEFR [facility] Last Admin: 09/03/18 16:12 Dose: 200 mls/hr Insulin Human Lispro (Humalog*) 6 units SUBCUT TID WITH MEALS [facility] Last Admin: 09/04/18 18:52 Dose: Not Given Metoprolol Succinate (Toprol Xl Tab*) [facility] [place] Last Admin: 09/05/18 09:34 Dose: 25 mg Morphine Sulfate (Morphine Inj ((Syringe))*) 2 mg IV Q6H PRN PRN Reason: PAIN - SEVERE Last Admin: 09/05/18 09:17 Dose: 2 mg Ondansetron HCl (Zofran Inj*) 4 mg IV Q6H PRN PRN Reason: NAUSEA Oxycodone/Acetaminophen (Percocet 5/325 Tab*) 1 tab PO Q6H PRN PRN Reason: PAIN Last Admin: 09/05/18 04:43 Dose: 1 tab Sevelamer Carbonate (Renvela Tab*) 1,600 mg PO 0845,[id number] [facility] Last Admin: 09/05/18 09:34 Dose: 1,600 mg Throat Lozenges (Chloraseptic Kayla*) 1 kayla PO Q6H PRN PRN Reason: COUGH Last Admin: 09/04/18 21:04 Dose: 1 kayla Vital Signs - 8 hr 09/05/18 09/05/18 09/05/18 03:29 04:10 04:43 Temperature 98.4 F Pulse Rate 57 Respiratory 18 18 Rate Blood Pressure 125/50 (mmHg) O2 Sat by Pulse 98 98 Oximetry 09/05/18 09/05/18 09/05/18 06:55 07:20 09:17 Temperature 97.8 F Pulse Rate 56 Respiratory 16 14 18 Rate Blood Pressure 106/49 (mmHg) O2 Sat by Pulse 98 Oximetry Oxygen Devices in Use Now: Nasal Cannula Appearance: 73 yo M in nAD, aAOx3 Eyes: No Scleral Icterus, PERRLA Ears/Nose/Mouth/Throat: NL Teeth, Lips, Gums, Mucous Membranes Moist Neck: NL Appearance and Movements; NL JVP, Trachea Midline Respiratory: Symmetrical Chest Expansion and Respiratory Effort, - - crackles at b/l bases Cardiovascular: NL Sounds; No Murmurs; No JVD, RRR Abdominal: NL Sounds; No Tenderness; No Distention, No Hepatosplenomegaly Lymphatic: No Cervical Adenopathy Extremities: No Clubbing, Cyanosis, - - left calf edema and veonus stasis related patches or erythema, cellulkitis resolving. L foot sp amoutation of toes 2-4 with residual incisional wound-crack like at 1 cm not draining. dorsum of foot small 1 cm in diam wound, but deep to the tendon with ourulent drainage. one more small are on lateral aspect L foot covered with eschar at 1 cm and smililar area on heel on F foot Skin: No Nodules or Sclerosis Neurological: Alert and Oriented x 3, NL Muscle Strength and Tone Result Diagrams: 09/05/18 06:23 09/05/18 06:23 Microbiology and Other Data: Microbiology 09/03/18 19:35 Skin and Soft Tissue MRSA/MSSA (PCR - Final Foot Left Mrsa Negative S.aureus Positive Gram Stain - Final 09/02/18 22:33 Aerobic Blood Culture - Preliminary Blood Venous No Growth Day 1 Anaerobic Blood Culture - Preliminary No Growth Day 1 09/02/18 22:49 Aerobic Blood Culture - Preliminary Blood Venous No Growth Day 1 Anaerobic Blood Culture - Preliminary No Growth Day 1 Assess/Plan/Problems-Billing Assessment: Pateint is a 74yom with PMHx DMII, CKD, CAD, PVD, chronic hypoxic respiratory failure requiring 2L home oxygen, and h/o osteomyelitis and who presents with LLE cellulitis. - Patient Problems (1) Cellulitis Comment: -MRI- cellulitis vs myositis; no evidence of osteomyelitis, abscess; LLE US negative for DVT, arterial dopplers done in 03/13 showing diffuse 50 % stenosis of most of blood vessels in L LE -Elevate b/l LE -D/c'd arnoldo jaime 09/03/18 -Cefazolin after dialysis on HD days -Continue pain control -likely d/c home after HD tomorrow, but will d/w ID (2) Chronic respiratory failure with hypoxia Comment: -In no acute distress or exacerbation -Continue 2L per NC, as at home (3) Anemia Comment: - Stable, normocytic anemia, suspect anemia of chronic disease and CKD (4) PAD (peripheral artery disease) Comment: - Per vascular studies in 02/2018 patient has severe calcified vasculopathy of all arteries of the left lower extremity with 50 % stenosis (5) HTN (hypertension) Comment: - controlled - Continue metoprolol (6) Type 2 diabetes mellitus Comment: -Continue current home regimen of 6U ac lispo, diabetic diet -Continue to monitor AC blood glucose (7) ESRD (end stage renal disease) Comment: -Pt has M, W, F dialysis schedule -dialysis access tunneled cath in R chest (8) DVT prophylaxis Comment: - SQ heparin Status and Disposition: Inpatient.
[2018-09-05 11:34] LABS: ABS Basophils 0 10^3/ul (0-0.2); ABS Eosinophils 0.2 10^3/ul (0-0.6); ABS Lymphocytes 0.6 10^3/ul (1.0-4.8); ABS Monocytes 0.5 10^3/ul (0-0.8); ABS Nucleated RBC 0 10^3/ul; Eosinophil % 2.9 %; Hematocrit 34 % (42-52); Hemoglobin 10.4 g/dl (14.0-18.0); Lymphocyte % 9.8 %; Mean Corpuscular HGB Conc 31 g/dl (31-36); Mean Corpuscular Hemoglobin 29 pg (27-31); Mean Corpuscular Volume 92 fL (80-94); Nucleated Red Blood Cells % 0; Platelet Count 197 10^3/ul (150-450); Red Blood Count 3.64 10^6/ul (4.00-5.40); Red Cell Distribution Width 18 % (10.5-15); White Blood Count 6.4 10^3/ul (3.5-10.8)
[2018-09-05] MEDS: Insulin LISPRO* 1 UNITS UNIT SUBCUT SCH ×2 (11:44→12:21)
[2018-09-05 11:58] LABS: BUN/Creatinine Ratio 10.6 (8-20); Calcium 8.6 mg/dL (8.6-10.3); EGFR African American 14.5 (>60); Potassium 4.4 mmol/L (3.5-5.0)
[2018-09-05] MEDS: Aspirin TAB* 325 MG PO SCH (18:08)
[2018-09-05] MEDS: Calcium Carbonate CHEW TAB* 500 MG (TUMS) PO PRN (20:54)
[2018-09-06] MEDS: Morphine INJ* 2 MG/ML 1 ML SYRINGE (TWO MG - NEW SYRINGE VERSION) IV PRN ×2 (02:47→10:10)
[2018-09-06] MEDS ORDERED: Vancomycin Random Level* NOTE FOLLOW UP ONE (05:30)
[2018-09-06 07:29] LABS: ABS Basophils 0 10^3/ul (0-0.2); ABS Eosinophils 0.2 10^3/ul (0-0.6); ABS Lymphocytes 0.7 10^3/ul (1.0-4.8); ABS Monocytes 0.4 10^3/ul (0-0.8); ABS Neutrophils 4.3 10^3/ul (1.5-7.7); ABS Nucleated RBC 0 10^3/ul; Eosinophil % 2.9 %; Hematocrit 35 % (42-52); Lymphocyte % 13.2 %; Mean Corpuscular HGB Conc 31 g/dl (31-36); Mean Corpuscular Hemoglobin 29 pg (27-31); Mean Corpuscular Volume 93 fL (80-94); Mean Platelet Volume 7.9 fL (7.4-10.4); Nucleated Red Blood Cells % 0; Platelet Count 180 10^3/ul (150-450); Red Cell Distribution Width 18 % (10.5-15); White Blood Count 5.6 10^3/ul (3.5-10.8)
[2018-09-06 07:46] LABS: BUN/Creatinine Ratio 10.4 (8-20); C Reactive Protein 143.73 mg/L (<8.01); Calcium 8.4 mg/dL (8.6-10.3); EGFR African American 11.7 (>60); EGFR Non-African American 9.6 (>60)
[2018-09-06 07:57] LABS: Potassium 5.1 mmol/L (3.5-5.0)
--- NOTE | 2018-09-06 08:19 | PN ---
Subjective Date of Service: 09/06/18 Interval History: Pt feels tired today. L leg hurts less. Objective Active Medications: Acetaminophen (Tylenol Tab*) 650 mg PO Q6H PRN PRN Reason: FEVER/PAIN Aspirin (Aspirin Tab*) 325 mg PO QPM [facility] Last Admin: 09/05/18 18:08 Dose: 325 mg Atorvastatin Calcium (Lipitor*) 80 mg PO QAM [facility] Last Admin: 09/05/18 09:34 Dose: 80 mg Calcium Carbonate (Tums*) 500 mg PO BID PRN PRN Reason: INDIGESTION Last Admin: 09/05/18 20:54 Dose: 500 mg Gemfibrozil (Lopid Tab*) 600 mg PO BID [facility] Last Admin: 09/05/18 20:50 Dose: 600 mg Heparin Sodium (Porcine) (Heparin Vial(*)) 5,000 units SUBCUT Q12HR [facility] Last Admin: 09/05/18 21:39 Dose: 5,000 units Cefazolin Sodium 1 gm/ Sodium (Chloride) 50 mls @ 200 mls/hr IVPB MOWEFR [facility] Last Admin: 09/03/18 16:12 Dose: 200 mls/hr Metoprolol Succinate (Toprol Xl Tab*) [facility] [place] Last Admin: 09/05/18 09:34 Dose: 25 mg Morphine Sulfate (Morphine Inj ((Syringe))*) 2 mg IV Q6H PRN PRN Reason: PAIN - SEVERE Last Admin: 09/06/18 02:47 Dose: 2 mg Ondansetron HCl (Zofran Inj*) 4 mg IV Q6H PRN PRN Reason: NAUSEA Oxycodone/Acetaminophen (Percocet 5/325 Tab*) 1 tab PO Q6H PRN PRN Reason: PAIN Last Admin: 09/05/18 20:44 Dose: 1 tab Sevelamer Carbonate (Renvela Tab*) 1,600 mg PO 0845,[id number],1745 [facility] Last Admin: 09/05/18 18:07 Dose: 1,600 mg Throat Lozenges (Chloraseptic Kayla*) 1 kayla PO Q6H PRN PRN Reason: COUGH Last Admin: 09/04/18 21:04 Dose: 1 kayla Vital Signs - 8 hr 09/06/18 09/06/18 09/06/18 02:36 02:47 03:48 Temperature 97.2 F Pulse Rate 58 Respiratory 18 16 16 Rate Blood Pressure 121/56 (mmHg) O2 Sat by Pulse 100 Oximetry 09/06/18 04:04 Temperature Pulse Rate Respiratory Rate Blood Pressure (mmHg) O2 Sat by Pulse 99 Oximetry Oxygen Devices in Use Now: Nasal Cannula Appearance: 73 yo M in NAD, AAOx3 Eyes: No Scleral Icterus, PERRLA Ears/Nose/Mouth/Throat: NL Teeth, Lips, Gums, Mucous Membranes Moist Neck: NL Appearance and Movements; NL JVP, Trachea Midline Respiratory: Symmetrical Chest Expansion and Respiratory Effort, - - crackles at b/l bases Cardiovascular: NL Sounds; No Murmurs; No JVD, RRR Abdominal: NL Sounds; No Tenderness; No Distention, No Hepatosplenomegaly Lymphatic: No Cervical Adenopathy Extremities: No Clubbing, Cyanosis, - - trace left ankle and left calf edema Skin: No Nodules or Sclerosis, - - erythema due to vnoust staisis in left leg below the knee noted, cellitis is almost resolved. Wounds on lef foot unchanged. dorsum of left foot wound with packing in place at 1 cm in diam, but deep to tendon. Neurological: Alert and Oriented x 3, NL Muscle Strength and Tone Result Diagrams: 09/06/18 06:47 09/06/18 06:47 Microbiology and Other Data: Microbiology 09/03/18 19:35 Skin and Soft Tissue MRSA/MSSA (PCR - Final Foot Left Mrsa Negative S.aureus Positive Gram Stain - Final 09/02/18 22:33 Aerobic Blood Culture - Preliminary Blood Venous No Growth Day 1 Anaerobic Blood Culture - Preliminary No Growth Day 1 09/02/18 22:49 Aerobic Blood Culture - Preliminary Blood Venous No Growth Day 1 Anaerobic Blood Culture - Preliminary No Growth Day 1 Assess/Plan/Problems-Billing Assessment: Pateint is a 74yom with PMHx DMII, CKD, CAD, PVD, chronic hypoxic respiratory failure requiring 2L home oxygen, and h/o osteomyelitis and who presents with LLE cellulitis. 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 cx growing MSSA and corynobacterium -Continue pain control -likely d/c home after HD today, but will d/w ID (2) Chronic respiratory failure with hypoxia Comment: -In no acute distress or exacerbation -Continue 2L per NC, as at home (3) Anemia Comment: - Stable, normocytic anemia, suspect anemia of chronic disease and CKD (4) PAD (peripheral artery disease) Comment: - Per vascular studies in 02/2018 patient has severe calcified vasculopathy of all arteries of the left lower extremity with 50 % stenosis (5) HTN (hypertension) Comment: - controlled - Continue metoprolol (6) Type 2 diabetes mellitus Comment: cont ISS, scheduled from home lispro AC discontinued due to episodes of low normal BG (7) ESRD (end stage renal disease) Comment: -Pt has M, W, F dialysis schedule -dialysis access tunneled cath in R chest (8) DVT prophylaxis Comment: - SQ heparin Status and Disposition: Inpatient.
[2018-09-06] MEDS: Sevelamer TAB* 800 MG PO SCH ×3 (09:22→17:25)
[2018-09-06] MEDS: Gemfibrozil TAB* 600 MG PO SCH ×2 (09:24→22:33)
[2018-09-06] MEDS: Atorvastatin* 80 MG TAB PO SCH (09:24)
[2018-09-06] MEDS: Heparin VIAL(*) 5000 UNITS/ML VIAL (FIVE THOUSAND) SUBCUT SCH ×2 (09:24→22:33)
[2018-09-06] MEDS: Metoprolol Succinate XL TAB* 25 MG PO SCH (09:24)
--- NOTE | 2018-09-06 12:35 | CONS ---
CONSULTATION REPORT: DATE OF CONSULTATION: 09/06/18 REQUESTING PHYSICIAN: Dr. Ibrahim. CONSULTING SERVICE: Infectious Disease. REASON FOR CONSULTATION: Left foot infection. IMPRESSION: 1. History of a partial left foot amputation 2017, complicated by a slow to heal wound which had been improving, now with swelling, pain, stiffness from his foot to his lower leg. MRI on the showed no osteomyelitis. His wound looks benign. The foot is nontender. His ankle joint is tender to palpation and painful with range of motion. Differential diagnosis includes a septic ankle joint which I think is less likely versus tenosynovitis as well. 2. Endstage renal disease, on hemodialysis. 3. Insulin dependent diabetes. 4. Peripheral vascular disease. RECOMMENDATIONS: Agree with Ancef for now given that the wound grew sensitive Staphylococcus aureus. Please have orthopedic exam for consideration of aspiration of the ankle to ensure it is not infected. HISTORY OF PRESENT ILLNESS: This is a 73-year-old male on hemodialysis who had a left foot partial amputation in the summer that was the second through the fifth toes, through the Lisfranc joint. The wound has been slow to heal and is followed with the wound clinic and it has been getting smaller. I saw him about 3 weeks ago without any signs or symptoms of infection at that time. Then over the last few days, he had worsening pain swelling in the foot and ankle, so came to the hospital on with an MRI with results as above. He was started on vancomycin and Zosyn which was tailored to Ancef after the wound culture was growing Staph aureus and carinii bacterium. Pain is little bit better. The swelling in his foot is better he thinks, but still has pain in the lower leg and ankle. He has not had any fever here. He had leukocytosis on the which was down to 5 today. PAST MEDICAL HISTORY: 1. Endstage renal disease, on hemodialysis via a right chest catheter. 2. Status post fistula placement. 3. Status post left foot partial amputation 2017. 4. Peripheral vascular disease. 5. Insulin dependent diabetes. 6. Coronary artery disease, status post CABG. 7. Chronic oxygen requirement at home. 8. Status post umbilical hernia repair. ALLERGIES: No known drug allergies. MEDICATIONS: 1. Tylenol. 2. Aspirin. 3. Lipitor. 4. Calcium carbonate. 5. Gemfibrozil 1200 mg after dialysis. 6. Metoprolol. 7. Zofran. 8. Oxycodone as needed. 9. Sevelamer. SOCIAL HISTORY: He lives with his . No travel, no sick contacts, nonsmoker. FAMILY HISTORY: No recurrent infections. REVIEW OF SYSTEMS: All negative except as noted above to a 14-point review. PHYSICAL EXAM: Vital Signs: Temperature 36.2, heart rate is 58, respiratory rate 16, blood pressure 121/56, oxygen saturation 99% on 2 L. In general, he is awake, not in distress. Neurologic: He is oriented x3. Follows all commands, answers questions appropriately. Decreased sensation to light touch in both feet. HEENT: There is no conjunctival hemorrhage. Oropharynx without lesions. Neck is supple without mass. Heart is regular rate and rhythm. Chest : There is a right chest catheter. Lungs are clear to auscultation bilaterally. Abdomen: Soft, nontender, nondistended. There are bowel sounds present. Skin: There is no rash. There is no splinter hemorrhage. Musculoskeletal: There is no spine tenderness to palpation. There is right ankle tenderness to palpation. Lateral left foot is absent. There is a dorsal wound in the prior incision without surrounding erythema or drainage. There is no tenderness through the foot. The left ankle is tender to palpation over both malleoli. There is pain with flexion and extension of the left ankle. LABORATORY DATA: White blood cell count 5, hemoglobin 11, platelets 180, creatinine is 5, potassium 5.1, CRP 143 down from 208 on the 9th. Please see impressions and recommendations outlined above which are discussed with Dr. Ibrahim. Thanks for asking me to see Mr. El in consultation. [id number]/[facility] #: [id number] BHARATI
[2018-09-06] MEDS ORDERED: Heparin DIALYSIS ONLY(*) 1,000 UNITS/ML VIAL DIALYSIS ONE (13:00)
[2018-09-06] MEDS: oxyCODONE/Acetamin 5/325 MG* TAB PO PRN (13:24)
[2018-09-06] MEDS ORDERED: Vancomycin(*) 1,000 MG in NS 0.9% 250 ML* 250 ML IVPB SCH (15:00)
[2018-09-06] MEDS: ceFAZolin 1 GM ADVAN(*) 1 GM in NS 0.9% 50 ML* 50 ML IVPB SCH (16:27)
--- NOTE | 2018-09-06 17:06 | CONS ---
CONSULTATION REPORT: DATE OF CONSULT: 09/06/18 HISTORY OF PRESENT ILLNESS: Rickie is examined in the dialysis suite. He is a 73- year-old gentleman with type 2 diabetes, who has had chronic renal failure. He gets dialysis 3 days a week. He is unable to give me any pertinent history because he is very confused and frankly slightly combative about any questions as far as his history. At some point in the past though he had a partial foot amputation with loss of third, fourth and fifth toes. He has been having packing to a dorsolateral midfoot wound. He has been readmitted with cellulitis and pain in the left lower extremity, and has an MRI of the left ankle area. His medications are outlined in the chart but in addition to the kidney disease , the type 2 diabetes, he is chronic O2 dependent and has significant vascular disease. PHYSICAL EXAM: He complains mainly of pain with palpation of his left ankle. I am able in the bed to dorsiflex and plantarflex the ankle without applying pressure there to about a 10 degree arc with minimal pain. This I did with some amount of distraction. The tenderness is mostly along the medial tarsal tunnel area. He has a warm foot but markedly decreased sensation. He has grown out some staph aureus from his wound culture and is now on IV cefazolin. His leukocytosis is improved somewhat. The MRI itself does not on my reading show bone involvement. He does have a large area of just vascular change in the talar body. There is soft tissue edema, but I do not see a discrete fluid collection either. IMPRESSION: My impression is that he has significant cellulitis, perhaps some early myositis in the left medial hindfoot area. I do not see bone involvement. I would continue with elevation and IV antibiotics and careful monitoring. If the condition worsens, we might repeat the MRI. He could be touch-down weightbearing with a postop shoe as tolerated for pivot transfers. [id number]/[facility] #: [id number] [facility]
[2018-09-06] MEDS: Aspirin TAB* 325 MG PO SCH (17:25)
[2018-09-07] MEDS: Morphine INJ* 2 MG/ML 1 ML SYRINGE (TWO MG - NEW SYRINGE VERSION) IV PRN ×2 (00:39→08:49)
[2018-09-07] MEDS: oxyCODONE/Acetamin 5/325 MG* TAB PO PRN ×2 (04:33→21:35)
[2018-09-07] MEDS: Gemfibrozil TAB* 600 MG PO SCH ×2 (08:49→21:20)
[2018-09-07] MEDS: Atorvastatin* 80 MG TAB PO SCH (08:49)
[2018-09-07] MEDS: Heparin VIAL(*) 5000 UNITS/ML VIAL (FIVE THOUSAND) SUBCUT SCH ×2 (08:49→21:19)
[2018-09-07] MEDS: Metoprolol Succinate XL TAB* 25 MG PO SCH (08:49)
[2018-09-07] MEDS: Sevelamer TAB* 800 MG PO SCH ×3 (09:00→17:55)
[2018-09-07] MEDS ORDERED: Dextrose 50% Syringe 50 ML* 25 GM/50 ML SYRINGE IV PUSH ONE (09:44)
[2018-09-07] MEDS ORDERED: Dextrose 50% Syringe 50 ML* 25 GM/50 ML SYRINGE IV PUSH PRN (09:45)
[2018-09-07] MEDS ORDERED: Dextrose 50% Syringe 50 ML* 25 GM/50 ML SYRINGE ONE (09:48)
--- NOTE | 2018-09-07 10:20 | PN ---
Subjective Date of Service: 09/07/18 Interval History: Pt c/o feeling confused today. Nevertheless able to tell me todays' date his location and age without any problems. Just received a dose of Percocet for back pain. His BG was at 68 this aM Objective Active Medications: Acetaminophen (Tylenol Tab*) 650 mg PO Q6H PRN PRN Reason: FEVER/PAIN Aspirin (Aspirin Tab*) 325 mg PO QPM [facility] Last Admin: 09/06/18 17:25 Dose: 325 mg Atorvastatin Calcium (Lipitor*) 80 mg PO QAM [facility] Last Admin: 09/07/18 08:49 Dose: 80 mg Calcium Carbonate (Tums*) 500 mg PO BID PRN PRN Reason: INDIGESTION Last Admin: 09/05/18 20:54 Dose: 500 mg Dextrose (D50w Syringe 50 Ml*) 12.5 gm IV PUSH .FOR FS < 60 - SS PRN PRN Reason: FS < 60 Gemfibrozil (Lopid Tab*) 600 mg PO BID [facility] Last Admin: 09/07/18 08:49 Dose: 600 mg Heparin Sodium (Porcine) (Heparin Vial(*)) 5,000 units SUBCUT Q12HR [facility] Last Admin: 09/07/18 08:49 Dose: 5,000 units Cefazolin Sodium 1 gm/ Sodium (Chloride) 50 mls @ 200 mls/hr IVPB MOWEFR [facility] Last Admin: 09/06/18 16:27 Dose: 200 mls/hr Insulin Human Lispro (Humalog*) 0 units SUBCUT [facility]; Protocol Metoprolol Succinate (Toprol Xl Tab*) 25 mg PO [facility] Last Admin: 09/07/18 08:49 Dose: 25 mg Morphine Sulfate (Morphine Inj ((Syringe))*) 2 mg IV Q6H PRN PRN Reason: PAIN - SEVERE Last Admin: 09/07/18 08:49 Dose: 2 mg Ondansetron HCl (Zofran Inj*) 4 mg IV Q6H PRN PRN Reason: NAUSEA Last Admin: 09/06/18 13:24 Dose: 4 mg Oxycodone/Acetaminophen (Percocet 5/325 Tab*) 1 tab PO Q8H PRN PRN Reason: PAIN Sevelamer Carbonate (Renvela Tab*) 1,600 mg PO [id number],[id number] [facility] Last Admin: 02/12/19 09:00 Dose: 1,600 mg Throat Lozenges (Chloraseptic Kayla*) 1 kayla PO Q6H PRN PRN Reason: COUGH Last Admin: 09/04/18 21:04 Dose: 1 kayla Vital Signs - 8 hr 09/07/18 09/07/18 09/07/18 02:59 04:33 07:48 Temperature 98.2 F Pulse Rate 56 Respiratory 16 16 12 Rate Blood Pressure 120/104 (mmHg) O2 Sat by Pulse 98 Oximetry 09/07/18 09/07/18 09/07/18 08:00 08:36 08:49 Temperature Pulse Rate Respiratory 14 16 Rate Blood Pressure 128/89 (mmHg) O2 Sat by Pulse Oximetry Oxygen Devices in Use Now: Nasal Cannula Appearance: 73 yo M in NAD, AAOx3, but complaining about feeling confused, poor recall Eyes: No Scleral Icterus, PERRLA Ears/Nose/Mouth/Throat: NL Teeth, Lips, Gums, Mucous Membranes Moist Neck: NL Appearance and Movements; NL JVP, Trachea Midline Respiratory: Symmetrical Chest Expansion and Respiratory Effort, - - faint bibasiliar crackles Cardiovascular: NL Sounds; No Murmurs; No JVD Abdominal: NL Sounds; No Tenderness; No Distention, No Hepatosplenomegaly Lymphatic: No Cervical Adenopathy Extremities: No Clubbing, Cyanosis, - - left calf edema-unchanged Skin: No Nodules or Sclerosis, - - chronic appearing erythema on left calf and foot unchanged. Left foot wounds not inspected today-dressings in place Neurological: Alert and Oriented x 3, NL Muscle Strength and Tone Result Diagrams: 09/06/18 06:47 09/06/18 06:47 Microbiology and Other Data: Microbiology 09/03/18 19:35 Skin and Soft Tissue MRSA/MSSA (PCR - Final Foot Left Mrsa Negative S.aureus Positive Gram Stain - Final 09/02/18 22:33 Aerobic Blood Culture - Preliminary Blood Venous No Growth Day 1 Anaerobic Blood Culture - Preliminary No Growth Day 1 09/02/18 22:49 Aerobic Blood Culture - Preliminary Blood Venous No Growth Day 1 Anaerobic Blood Culture - Preliminary No Growth Day 1 Assess/Plan/Problems-Billing Assessment: Pateint is a 74yom with PMHx DMII, CKD, CAD, PVD, chronic hypoxic respiratory failure requiring 2L home oxygen, and h/o osteomyelitis and who presents with LLE cellulitis. Pt is s/p 4 toes amputated on L foor at [facility] in the fall of 2017 and subsequent chronic left foot wounds under the care of wound care. - Patient Problems (1) Lethargy Comment: as per d/w physicians who know pt outpatient, pt is more lethargic than usual and today c/o feeling confused. Suspect it is due to narcotics. will change dosing to Q8H Also tx with dextrose for hypoglycemia this aM that cpould be contributing (2) Cellulitis Comment: -MRI- cellulitis vs myositis; no evidence of osteomyelitis, abscess, + unchanged (from 03/13)avascular necrosis of the dome of left talus; LLE US negative for DVT, arterial dopplers done in 03/13 showing diffuse 50 % stenosis of most of blood vessels in L LE -Elevate b/l LE -D/c'd arnoldo jaime 09/03/18 -Cefazolin after dialysis on HD days,. cx growing MSSA and corynobacterium -Continue pain control -appreciate ID and ortho consults. suspected myositis, no septic arthritis as per ortho. (3) Chronic respiratory failure with hypoxia Comment: -In no acute distress or exacerbation -Continue 2L per NC, as at home (4) Anemia Comment: - Stable, normocytic anemia, suspect anemia of chronic disease and CKD (5) PAD (peripheral artery disease) Comment: - Per vascular studies in 02/2018 patient has severe calcified vasculopathy of all arteries of the left lower extremity with 50 % stenosis (6) HTN (hypertension) Comment: - controlled - Continue metoprolol (7) Type 2 diabetes mellitus Comment: cont ISS, scheduled from home lispro AC discontinued due to episodes of low normal BG This aM hypoglycemic. Dextrose IV given (8) ESRD (end stage renal disease) Comment: -Pt has M, W, F dialysis schedule -dialysis access tunneled cath in R chest (9) DVT prophylaxis Comment: - SQ heparin Status and Disposition: Inpatient. wishes for pt to go to [facility].
[2018-09-07] MEDS: Insulin LISPRO* 1 UNITS UNIT SUBCUT SCH ×3 (11:47→21:19)
[2018-09-07] MEDS ORDERED: Polyethylene Glycol 3350* 17 GM PACKET PO PRN (12:14)
[2018-09-07] MEDS ORDERED: Senna TAB PO PRN (12:14)
[2018-09-07] MEDS ORDERED: Magnesium Hydroxide LIQ* 30 ML UDC PO PRN (12:14)
--- NOTE | 2018-09-07 13:54 | PN ---
Progress Note - Progress Note Date of Service: 09/07/18 SOAP: Subjective: [CC: Left foot infected myositis HPI: 73 yo male with PMH significant for ESRD on hemodialysis, IDDM, PVD and partial left foot amputation in 2018 complicated by slow wound healing. Complaining of back pain today. No BM for 3 days, starting on a bowel regimen today. No fever or chills. ] Objective: Vital Signs 09/07/18 11:37 Temperature 97.8 F Temperature Temporal Artery Source Scan Pulse Rate 51 Respiratory 18 Rate Blood Pressure 105/45 (mmHg) Blood Pressure 61 Mean O2 Sat by Pulse 100 Oximetry Patient on Room No Air Physical Exam Gen: Awake, no acute distress HEENT: No thrush Heart: Regular rate and rhythm, no murmur Lungs: Clear bilateral Abdomen: Bowel sounds present, abdomen soft, and non tender. Musculoskeletal: Absent left lateral foot. Pain with lara and plantar flexion of the left ankle. Skin: Dressing to left foot clean, dry and intact. No erythmea to the left LE. Laboratory Tests 09/06/18 09/06/18 06:47 06:47 WBC 5.6 Hgb 11.0 L Hct 35 L Plt Count 180 Sodium 134 L Potassium 5.1 H Chloride 97 L Carbon Dioxide 27 BUN 60 H Creatinine 5.78 H Est GFR (Non-Af Amer) 9.6 Glucose 100 C-Reactive Protein 143.73 H Microbiology 09/03/18 19:35 Foot Left Skin and Soft Tissue MRSA/MSSA (PCR - Final 09/03/18 19:35 Foot Left Wound Culture - Final Mrsa Negative S.aureus Positive Staphylococcus Aureus Corynebacterium Striatum Normal Nadja 09/02/18 22:49 Blood Venous Aerobic Blood Culture - Preliminary 09/02/18 22:49 Blood Venous Anaerobic Blood Culture - Preliminary No Growth Day 4 No Growth Day 4 09/02/18 22:33 Blood Venous Aerobic Blood Culture - Preliminary 09/02/18 22:33 Blood Venous Anaerobic Blood Culture - Preliminary No Growth Day 4 No Growth Day 4 Assessment: 1. Left foot Myositis and cellulitis 2. Non healing wound of the left foot. Non pressure related. 3. ESRD on hemodialysis 4. Diabetes, insulin dependent 5. Peripheral Vascular disease Plan: 1. Change Cefazolin to Keflex, day 414 of antibiotics. <Martha Argueta - Last Filed: 09/07/18 13:49> - Progress Note SOAP: Patient seen, examined, and discussed with COMMUNITY ASSISTANT Ashwin Martinez, I agree with her note above, in addition: 1. MSSA cellulitis and infective myostitis ; left foot and ankle 2. PAD 3. Diabetes with neuropathy 4. ESRD/HD 5. chronic non pressure related left wound Plan: change to keflex 500 mg daily, to be given post HD on HD days, follow up with wound clinic. <Joaquín GARNICA,Jl Ryan - Last Filed: 09/07/18 14:14>
[2018-09-07] MEDS: Aspirin TAB* 325 MG PO SCH (17:56)
[2018-09-07] MEDS: Magnesium Hydroxide LIQ* 30 ML UDC PO SCH (21:20)
[2018-09-07] MEDS: Docusate CAP* 100 MG PO SCH (21:20)
[2018-09-08 07:23] LABS: BUN/Creatinine Ratio 9.7 (8-20); C Reactive Protein 106.86 mg/L (<8.01); Calcium 8.6 mg/dL (8.6-10.3); EGFR African American 12.3 (>60); EGFR Non-African American 10.1 (>60)
[2018-09-08 07:24] LABS: Potassium 5.4 mmol/L (3.5-5.0)
[2018-09-08] MEDS: Insulin LISPRO* 1 UNITS UNIT SUBCUT SCH ×4 (07:26→21:46)
[2018-09-08 07:32] LABS: Hematocrit 33 % (42-52); Hemoglobin 10.3 g/dl (14.0-18.0); Mean Corpuscular HGB Conc 31 g/dl (31-36); Mean Corpuscular Hemoglobin 28 pg (27-31); Mean Corpuscular Volume 91 fL (80-94); Mean Platelet Volume 7.8 fL (7.4-10.4); Platelet Count 170 10^3/ul (150-450); Red Blood Count 3.64 10^6/ul (4.00-5.40); Red Cell Distribution Width 17 % (10.5-15); White Blood Count 5.1 10^3/ul (3.5-10.8)
[2018-09-08] MEDS: Sevelamer TAB* 800 MG PO SCH ×3 (10:08→17:13)
[2018-09-08] MEDS: Magnesium Hydroxide LIQ* 30 ML UDC PO SCH ×3 (10:08→21:52)
[2018-09-08] MEDS: Docusate CAP* 100 MG PO SCH ×2 (10:09→21:50)
[2018-09-08] MEDS: Heparin VIAL(*) 5000 UNITS/ML VIAL (FIVE THOUSAND) SUBCUT SCH ×2 (10:10→21:50)
[2018-09-08] MEDS: Metoprolol Succinate XL TAB* 25 MG PO SCH (10:10)
[2018-09-08] MEDS: oxyCODONE/Acetamin 5/325 MG* TAB PO PRN ×2 (10:36→18:16)
[2018-09-08] MEDS ORDERED: Heparin DIALYSIS ONLY(*) 1,000 UNITS/ML VIAL DIALYSIS ONE (12:00)
[2018-09-08] MEDS: Gemfibrozil TAB* 600 MG PO SCH ×2 (12:04→21:54)
[2018-09-08] MEDS: Morphine INJ* 2 MG/ML 1 ML SYRINGE (TWO MG - NEW SYRINGE VERSION) IV PRN (13:18)
--- NOTE | 2018-09-08 14:56 | PN ---
Subjective Date of Service: 09/08/18 Interval History: Pt was seen during dialysis today. still feels unwell, but could not specify. Spoke with pt about his going to [facility]. He's not happy about, stated that his wants him to go and that "she must be upset with him" Objective Active Medications: Acetaminophen (Tylenol Tab*) 650 mg PO Q6H PRN PRN Reason: FEVER/PAIN Aspirin (Aspirin Tab*) 325 mg PO QPM [facility] Last Admin: 09/07/18 17:56 Dose: 325 mg Atorvastatin Calcium (Lipitor*) 80 mg PO QAM [facility] Last Admin: 09/07/18 08:49 Dose: 80 mg Calcium Carbonate (Tums*) 500 mg PO BID PRN PRN Reason: INDIGESTION Last Admin: 09/05/18 20:54 Dose: 500 mg Cephalexin HCl (Keflex Cap*) 500 mg PO Q24HR [facility] Dextrose (D50w Syringe 50 Ml*) 12.5 gm IV PUSH .FOR FS < 60 - SS PRN PRN Reason: FS < 60 Docusate Sodium (Colace Cap*) 100 mg PO BID [facility] Last Admin: 09/08/18 10:09 Dose: Not Given Gemfibrozil (Lopid Tab*) 600 mg PO BID [facility] Last Admin: 09/08/18 12:04 Dose: Not Given Heparin Sodium (Porcine) (Heparin Vial(*)) 5,000 units SUBCUT Q12HR [facility] Last Admin: 09/08/18 10:10 Dose: 5,000 units Insulin Human Lispro (Humalog*) [address] [facility]; Protocol Last Admin: 09/08/18 12:49 Dose: Not Given Magnesium Hydroxide (Milk Of Magnesia Liq*) 30 ml PO BID [facility] Last Admin: 09/08/18 10:08 Dose: 30 ml Magnesium Hydroxide (Milk Of Magnesia Liq*) 30 ml PO BID PRN PRN Reason: CONSTIPATION Metoprolol Succinate (Toprol Xl Tab*) 25 mg PO QAM [facility] Last Admin: 09/08/18 10:10 Dose: Not Given Morphine Sulfate (Morphine Inj ((Syringe))*) 2 mg IV Q6H PRN PRN Reason: PAIN - SEVERE Last Admin: 09/08/18 13:18 Dose: 2 mg Ondansetron HCl (Zofran Inj*) 4 mg IV Q6H PRN PRN Reason: NAUSEA Last Admin: 09/06/18 13:24 Dose: 4 mg Oxycodone/Acetaminophen (Percocet 5/325 Tab*) 1 tab PO Q8H PRN PRN Reason: PAIN Last Admin: 09/08/18 10:36 Dose: 1 tab Polyethylene Glycol/Electrolytes (Miralax*) 17 gm PO DAILY PRN PRN Reason: CONSTIPATION Last Admin: 09/07/18 13:33 Dose: 17 gm Senna (Senokot Tab*) 1 tab PO BEDTIME PRN PRN Reason: CONSTIPATION Sevelamer Carbonate (Renvela Tab*) 1,600 mg PO 0845,1245,1745 [facility] Last Admin: 09/08/18 12:58 Dose: 1,600 mg Throat Lozenges (Chloraseptic Kayla*) 1 kayla PO Q6H PRN PRN Reason: COUGH Last Admin: 09/04/18 21:04 Dose: 1 kayla Vital Signs - 8 hr 09/08/18 09/08/18 09/08/18 08:00 10:36 12:59 Respiratory 16 16 16 Rate O2 Sat by Pulse 98 Oximetry 09/08/18 13:18 Respiratory 16 Rate O2 Sat by Pulse Oximetry Oxygen Devices in Use Now: Nasal Cannula Appearance: 73 yo M in NAD, aAOx3 Eyes: No Scleral Icterus, PERRLA Ears/Nose/Mouth/Throat: NL Teeth, Lips, Gums, Mucous Membranes Moist Neck: NL Appearance and Movements; NL JVP, Trachea Midline Respiratory: Symmetrical Chest Expansion and Respiratory Effort, - - crackles at b/l bases Cardiovascular: NL Sounds; No Murmurs; No JVD, RRR Abdominal: NL Sounds; No Tenderness; No Distention Lymphatic: No Cervical Adenopathy Extremities: No Clubbing, Cyanosis, - - trace pedal edema L>R Skin: No Nodules or Sclerosis, - - L foot s/p amputation of toes 1-4. wiht chronic wound on dorsum of foot, opened, wet not draining at 1 cm in diam, tunnel like at 2 cm deep. Small wound of left heel and lef lateral foot at 1 cm covered with eschar Neurological: Alert and Oriented x 3, NL Muscle Strength and Tone Result Diagrams: 09/08/18 06:46 09/08/18 06:46 Microbiology and Other Data: Microbiology 09/03/18 19:35 Skin and Soft Tissue MRSA/MSSA (PCR - Final Foot Left Mrsa Negative S.aureus Positive Gram Stain - Final 09/02/18 22:33 Aerobic Blood Culture - Preliminary Blood Venous No Growth Day 1 Anaerobic Blood Culture - Preliminary No Growth Day 1 09/02/18 22:49 Aerobic Blood Culture - Preliminary Blood Venous No Growth Day 1 Anaerobic Blood Culture - Preliminary No Growth Day 1 Assess/Plan/Problems-Billing Assessment: Pateint is a 74yom with PMHx DMII, CKD, CAD, PVD, chronic hypoxic respiratory failure requiring 2L home oxygen, and h/o osteomyelitis and who presents with LLE cellulitis. Pt is s/p 4 toes amputated on L foor at [facility] in the fall of 2017 and subsequent chronic left foot wounds under the care of wound care. - Patient Problems (1) Lethargy Comment: Pt is more awake once Percocet was limited to TID prn (2) Cellulitis Comment: -MRI- cellulitis vs myositis; no evidence of osteomyelitis, abscess, + unchanged (from 03/13)avascular necrosis of the dome of left talus; LLE US negative for DVT, arterial dopplers done in 03/13 showing diffuse 50 % stenosis of most of blood vessels in L LE -Elevate b/l LE -D/c'd vancilana dominguezsyn 09/03/18 -Cefazolin after dialysis on HD days changed to Keflex daily on 09/07/18 cx growing MSSA and corynobacterium -Continue pain control -appreciate ID and ortho consults. suspected myositis, no septic arthritis as per ortho. -pt is OK to got to [facility] from medical standpoint (3) Chronic respiratory failure with hypoxia Comment: -In no acute distress or exacerbation -Continue 2L per NC, as at home (4) Anemia Comment: - Stable, normocytic anemia, suspect anemia of chronic disease and CKD (5) PAD (peripheral artery disease) Comment: - Per vascular studies in 02/2018 patient has severe calcified vasculopathy of all arteries of the left lower extremity with 50 % stenosis (6) HTN (hypertension) Comment: - controlled - Continue metoprolol (7) Type 2 diabetes mellitus Comment: cont ISS, scheduled from home lispro AC discontinued (8) ESRD (end stage renal disease) Comment: -Pt has M, W, F dialysis schedule -dialysis access tunneled cath in R chest (9) DVT prophylaxis Comment: - SQ heparin Status and Disposition: Inpatient. wishes for pt to go to [facility]. Medically ready for discharge
--- NOTE | 2018-09-08 14:56 | CONSULT ---
Consult Consult: WOUND CONSULT NOTE Date of Service: 09/08/18 History: Interval History: Past Medical/Family/Social History: Family History: Unchanged from Admission Social History: Unchanged from Admission Past Medical History: Unchanged from Admission Objective: Active Medications: Medications Dextrose (D50w Syringe 50 Ml*) 12.5 gm IV PUSH .FOR FS < 60 - SS PRN PRN Reason: FS < 60 Heparin Sodium (Porcine) (Heparin Vial(*)) 5,000 units SUBCUT Q12HR [facility] Last Admin: 09/08/18 10:10 Dose: 5,000 units Throat Lozenges (Chloraseptic Kayla*) 1 kayla PO Q6H PRN PRN Reason: COUGH Last Admin: 09/04/18 21:04 Dose: 1 kayla Acetaminophen (Tylenol Tab*) 650 mg PO Q6H PRN PRN Reason: FEVER/PAIN Aspirin (Aspirin Tab*) 325 mg PO QPM [facility] Last Admin: 09/07/18 17:56 Dose: 325 mg Atorvastatin Calcium (Lipitor*) 80 mg PO QAM [facility] Last Admin: 09/07/18 08:49 Dose: 80 mg Calcium Carbonate (Tums*) 500 mg PO BID PRN PRN Reason: INDIGESTION Last Admin: 09/05/18 20:54 Dose: 500 mg Cephalexin HCl (Keflex Cap*) 500 mg PO Q24HR [facility] Docusate Sodium (Colace Cap*) 100 mg PO BID [facility] Last Admin: 09/08/18 10:09 Dose: Not Given Gemfibrozil (Lopid Tab*) 600 mg PO BID [facility] Last Admin: 09/08/18 12:04 Dose: Not Given Insulin Human Lispro (Humalog*) 0 units SUBCUT [facility]; Protocol Last Admin: 09/08/18 12:49 Dose: Not Given Magnesium Hydroxide (Milk Of Magnesia Liq*) 30 ml PO BID PRN PRN Reason: CONSTIPATION Magnesium Hydroxide (Milk Of Magnesia Liq*) 30 ml PO BID [facility] Last Admin: 09/08/18 10:08 Dose: 30 ml Metoprolol Succinate (Toprol Xl Tab*) 25 mg PO QAM [facility] Last Admin: 09/08/18 10:10 Dose: Not Given Morphine Sulfate (Morphine Inj ((Syringe))*) 2 mg IV Q6H PRN PRN Reason: PAIN - SEVERE Last Admin: 09/08/18 13:18 Dose: 2 mg Ondansetron HCl (Zofran Inj*) 4 mg IV Q6H PRN PRN Reason: NAUSEA Last Admin: 09/06/18 13:24 Dose: 4 mg Oxycodone/Acetaminophen (Percocet 5/325 Tab*) 1 tab PO Q8H PRN PRN Reason: PAIN Last Admin: 09/08/18 10:36 Dose: 1 tab Senna (Senokot Tab*) 1 tab PO BEDTIME PRN PRN Reason: CONSTIPATION Polyethylene Glycol/Electrolytes (Miralax*) 17 gm PO DAILY PRN PRN Reason: CONSTIPATION Last Admin: 09/07/18 13:33 Dose: 17 gm Sevelamer Carbonate (Renvela Tab*) 1,600 mg PO 0845,1245,1745 [facility] Last Admin: 09/08/18 12:58 Dose: 1,600 mg Vital Signs: Selected Entries 09/08/18 09/08/18 05:22 08:00 Temperature 97.6 F Temperature Oral Source Pulse Rate 50 Respiratory 16 Rate Blood Pressure 113/54 (mmHg) Blood Pressure 68 Mean O2 Sat by Pulse 98 Oximetry Oxygen Flow 2 Rate Patient on Room No Air Exam: General: Neuro: Skin: Left heel - Left foot - Data: Labs: Laboratory Tests 09/02/18 09/08/18 09/08/18 22:49 06:46 06:46 WBC 5.1 Hgb 10.3 L Hct 33 L Plt Count 170 Sodium 131 L Potassium 5.4 H Chloride 98 L Carbon Dioxide 25 BUN 54 H Creatinine 5.54 H Est GFR (Non-Af Amer) 10.1 Glucose 105 H C-Reactive Protein 106.86 H Total Protein 6.8 Albumin 3.2 Assessment/Plan: 1. 2. VTE PPX: Diet: Code Status: Disposition: Time Spent: Attending: Dr. Love Aguiar MD
[2018-09-08] MEDS: Cephalexin CAP* 500 MG PO SCH (15:51)
[2018-09-08] MEDS: Atorvastatin* 80 MG TAB PO SCH (15:51)
--- NOTE | 2018-09-08 16:32 | PN ---
Progress Note - Progress Note Date of Service: 09/08/18 SOAP: Subjective: []Pt seen at bedside. Confirms pain of left foot, denies fever or chills Objective: []General: NAD LLE: left foot s/p partial amp. Erythema almost entirely resolved. Dry pea sized ulcers without drainage or erythema one on the heel and one on the lateral foot. 2 packed lesions less than 1 cm on the dorsum again without drainage or erythema. Assessment: []L foot cellulitis improving Plan: []TDWB for transfers Continue antibiotics
[2018-09-08] MEDS: Aspirin TAB* 325 MG PO SCH (17:13)
[2018-09-08] MEDS: Acetaminophen TAB* 325 MG PO PRN (17:13)
[2018-09-08] MEDS ORDERED: Patiromer POWDER* 8.4 GM PAK PO ONE (18:30)
--- NOTE | 2018-09-09 03:57 | PN ---
PROGRESS NOTE: DATE OF VISIT: 09/08/18 SUBJECTIVE: The patient reports feeling better. Does not express any problems with dialysis. Complaining of left foot pain. Vitals and labs have been reviewed. PHYSICAL EXAMINATION: HEENT: NCAT. Heart: S1, S2 present. Regular at the time of exam. Lungs: Decreased breath sounds bilaterally. Abdomen: Soft. Extremities: Left foot status post partial amputation, erythema significantly better. Some ulcers on the lateral foot. ASSESSMENT AND PLAN: A 73-year-old male with history of diabetes, end-stage renal disease, coronary artery disease, peripheral vascular disease, chronic hypoxemic respiratory failure requiring home oxygen therapy, history of osteomyelitis, here with left lower extremity cellulitis. 1. End-stage renal disease, on hemodialysis Thursday, Thursday, Thursday. Dialysis access is tunneled catheter on the right chest. The patient is tolerating his dialysis treatments well. Discussed with the HD nurse as well. The patient also not noted to be volume overloaded. Scheduled for dialysis today and will plan UF to dry weight. 2. Anemia. Stable. 3. Hypertension. We will continue the metoprolol. 4. Cellulitis. Plan per primary team. Vanco and Zosyn were discontinued. Cefazolin after dialysis on HD days planned with growing emesis and corynebacterium. Was seen by ID and Ortho, no septic arthritis was suspected per Ortho. [id number]/CPS #: [id number] MTDD
[2018-09-09 06:23] LABS: Hematocrit 33 % (42-52); Hemoglobin 10.3 g/dl (14.0-18.0); Mean Corpuscular HGB Conc 31 g/dl (31-36); Mean Corpuscular Hemoglobin 29 pg (27-31); Mean Corpuscular Volume 91 fL (80-94); Mean Platelet Volume 7.5 fL (7.4-10.4); Platelet Count 183 10^3/ul (150-450); Red Blood Count 3.58 10^6/ul (4.00-5.40); Red Cell Distribution Width 18 % (10.5-15); White Blood Count 5.5 10^3/ul (3.5-10.8)
[2018-09-09 06:43] LABS: BUN/Creatinine Ratio 8.9 (8-20); Calcium 8.4 mg/dL (8.6-10.3); EGFR African American 16.5 (>60); EGFR Non-African American 13.6 (>60); Potassium 4.5 mmol/L (3.5-5.0)
[2018-09-09] MEDS: Insulin LISPRO* 1 UNITS UNIT SUBCUT SCH ×4 (07:58→20:47)
[2018-09-09] MEDS: Heparin VIAL(*) 5000 UNITS/ML VIAL (FIVE THOUSAND) SUBCUT SCH ×2 (09:36→20:48)
[2018-09-09] MEDS: Sevelamer TAB* 800 MG PO SCH ×3 (09:36→17:51)
[2018-09-09] MEDS: Gemfibrozil TAB* 600 MG PO SCH ×2 (09:36→20:46)
[2018-09-09] MEDS: Magnesium Hydroxide LIQ* 30 ML UDC PO SCH ×2 (09:37→20:49)
[2018-09-09] MEDS: Docusate CAP* 100 MG PO SCH ×2 (09:37→20:46)
[2018-09-09] MEDS: Atorvastatin* 80 MG TAB PO SCH (09:37)
[2018-09-09] MEDS: Cephalexin CAP* 500 MG PO SCH (09:37)
[2018-09-09] MEDS: Metoprolol Succinate XL TAB* 25 MG PO SCH (10:31)
[2018-09-09] MEDS: oxyCODONE/Acetamin 5/325 MG* TAB PO PRN (15:09)
[2018-09-09] MEDS: Morphine INJ* 2 MG/ML 1 ML SYRINGE (TWO MG - NEW SYRINGE VERSION) IV PRN (16:43)
[2018-09-09] MEDS: Aspirin TAB* 325 MG PO SCH (17:51)
--- NOTE | 2018-09-09 18:59 | PN ---
Subjective Date of Service: 09/09/18 Interval History: Pt is feeling ok currently. He continues to c/o pain in the L foot. He denies any diarrhea. He has not been offered a bed for [facility] so the plan is to go home with [facility]NS. Objective Active Medications: Acetaminophen (Tylenol Tab*) 650 mg PO Q6H PRN PRN Reason: FEVER/PAIN Aspirin (Aspirin Tab*) 325 mg PO QPM [facility] Last Admin: 09/09/18 17:51 Dose: 325 mg Atorvastatin Calcium (Lipitor*) 80 mg PO QAM [facility] Last Admin: 09/09/18 09:37 Dose: 80 mg Calcium Carbonate (Tums*) 500 mg PO BID PRN PRN Reason: INDIGESTION Last Admin: 09/05/18 20:54 Dose: 500 mg Cephalexin HCl (Keflex Cap*) 500 mg PO Q24HR [facility] Last Admin: 09/09/18 09:37 Dose: 500 mg Dextrose (D50w Syringe 50 Ml*) 12.5 gm IV PUSH .FOR FS < 60 - SS PRN PRN Reason: FS < 60 Docusate Sodium (Colace Cap*) 100 mg PO BID [facility] Last Admin: 09/09/18 09:37 Dose: Not Given Gemfibrozil (Lopid Tab*) 600 mg PO BID [facility] Last Admin: 09/09/18 09:36 Dose: 600 mg Heparin Sodium (Porcine) (Heparin Vial(*)) 5,000 units SUBCUT Q12HR [facility] Last Admin: 09/09/18 09:36 Dose: 5,000 units Insulin Human Lispro (Humalog*) 0 units SUBCUT [facility]; Protocol Last Admin: 09/09/18 17:51 Dose: 1 unit Magnesium Hydroxide (Milk Of Magnesia Liq*) 30 ml PO BID [facility] Last Admin: 09/09/18 09:37 Dose: Not Given Magnesium Hydroxide (Milk Of Magnesia Liq*) 30 ml PO BID PRN PRN Reason: CONSTIPATION Metoprolol Succinate (Toprol Xl Tab*) 25 mg PO QAM [facility] Last Admin: 09/09/18 10:31 Dose: Not Given Morphine Sulfate (Morphine Inj ((Syringe))*) 2 mg IV Q6H PRN PRN Reason: PAIN - SEVERE Last Admin: 09/09/18 16:43 Dose: 2 mg Ondansetron HCl (Zofran Inj*) 4 mg IV Q6H PRN PRN Reason: NAUSEA Last Admin: 09/06/18 13:24 Dose: 4 mg Oxycodone/Acetaminophen (Percocet 5/325 Tab*) 1 tab PO Q8H PRN PRN Reason: PAIN Last Admin: 09/09/18 15:09 Dose: 1 tab Polyethylene Glycol/Electrolytes (Miralax*) 17 gm PO DAILY PRN PRN Reason: CONSTIPATION Last Admin: 09/07/18 13:33 Dose: 17 gm Senna (Senokot Tab*) 1 tab PO BEDTIME PRN PRN Reason: CONSTIPATION Sevelamer Carbonate (Renvela Tab*) 1,600 mg PO 0845,1245,1745 GERONIMO Last Admin: 09/09/18 17:51 Dose: 1,600 mg Throat Lozenges (Chloraseptic Kayla*) 1 kayla PO Q6H PRN PRN Reason: COUGH Last Admin: 09/04/18 21:04 Dose: 1 kayla Vital Signs - 8 hr 09/09/18 09/09/18 09/09/18 12:07 15:09 15:39 Temperature 97.8 F 98.2 F Pulse Rate 66 62 Respiratory 16 17 16 Rate Blood Pressure 136/52 111/47 (mmHg) O2 Sat by Pulse 91 93 Oximetry 09/09/18 09/09/18 09/09/18 16:43 17:00 17:30 Temperature Pulse Rate Respiratory 17 16 16 Rate Blood Pressure (mmHg) O2 Sat by Pulse Oximetry Oxygen Devices in Use Now: None Appearance: Elderly male lying in bed, NAD Eyes: No Scleral Icterus Ears/Nose/Mouth/Throat: Mucous Membranes Moist Respiratory: Symmetrical Chest Expansion and Respiratory Effort, Clear to Auscultation Cardiovascular: NL Sounds; No Murmurs; No JVD, RRR, No Edema Abdominal: NL Sounds; No Tenderness; No Distention Extremities: No Clubbing, Cyanosis Skin: No Nodules or Sclerosis Neurological: - - Confused, keeps forgetting he is at the hospital. Result Diagrams: 09/09/18 06:02 09/09/18 06:02 Microbiology and Other Data: Microbiology 09/03/18 19:35 Skin and Soft Tissue MRSA/MSSA (PCR - Final Foot Left Mrsa Negative S.aureus Positive Gram Stain - Final 09/02/18 22:33 Aerobic Blood Culture - Preliminary Blood Venous No Growth Day 1 Anaerobic Blood Culture - Preliminary No Growth Day 1 09/02/18 22:49 Aerobic Blood Culture - Preliminary Blood Venous No Growth Day 1 Anaerobic Blood Culture - Preliminary No Growth Day 1 Assess/Plan/Problems-Billing Mr El is a 74yo M with a PMHx of DMII, CKD, CAD, PVD, chronic hypoxic respiratory failure requiring 2L home oxygen, and h/o osteomyelitis and who presents with LLE cellulitis. - Patient Problems (1) Cellulitis Current Visit: Yes Status: Acute Code(s): L03.90 - CELLULITIS, UNSPECIFIED SNOMED Code(s): 724039434 Comment: Cellulitis is resolved. Conitnue keplex for another 3 days. Follow up in wound clinic as scheduled. Wounds are clean and dry. Likely home tomorrow. (2) PAD (peripheral artery disease) Current Visit: Yes Status: Acute Code(s): I73.9 - PERIPHERAL VASCULAR DISEASE, UNSPECIFIED SNOMED Code(s): 949391175 Comment: Vascular studies done 02/2018 showed severe calcified vasculopathy of all arteries of the left lower extremity with 50 % stenosis. Continue ASA. (3) Type 2 diabetes mellitus Current Visit: Yes Status: Chronic Priority: High Comment: Last A1c from was 8.8%, however his sugars here have been under good control. Will recheck A1c. (4) ESRD (end stage renal disease) Current Visit: Yes Status: Acute Code(s): N18.6 - END STAGE RENAL DISEASE SNOMED Code(s): 79892826 Comment: Continue MWF dialysis. (5) Chronic respiratory failure with hypoxia Current Visit: Yes Status: Acute Comment: Continue O2 at 2L. Respiratory status is stable. (6) HTN (hypertension) Current Visit: No Status: Chronic Priority: High Code(s): I10 - ESSENTIAL (PRIMARY) HYPERTENSION SNOMED Code(s): 63855593 Comment: BP is under good control. Continue current regimen. (7) Coronary artery disease Current Visit: Yes Status: Acute Code(s): I25.10 - ATHSCL HEART DISEASE OF [place] CORONARY ARTERY W/O ANG PCTRS SNOMED Code(s): 19352164 Comment: No c/o chest pain. Continue ASA, lipitor and gemfibrozil. (8) DVT prophylaxis Current Visit: Yes Status: Acute Priority: High Code(s): PUW0125 - SNOMED Code(s): 306857118 Comment: SQ heparin (9) Full code status Current Visit: Yes Status: Acute Priority: High Code(s): Z78.9 - OTHER SPECIFIED HEALTH STATUS SNOMED Code(s): 366253982 Comment: Status and Disposition: .
[2018-09-10 07:23] LABS: Hematocrit 34 % (42-52); Hemoglobin 10.3 g/dl (14.0-18.0); Mean Corpuscular HGB Conc 31 g/dl (31-36); Mean Corpuscular Hemoglobin 28 pg (27-31); Mean Corpuscular Volume 91 fL (80-94); Mean Platelet Volume 7.8 fL (7.4-10.4); Platelet Count 180 10^3/ul (150-450); Red Cell Distribution Width 17 % (10.5-15); White Blood Count 5.9 10^3/ul (3.5-10.8)
[2018-09-10 07:44] LABS: BUN/Creatinine Ratio 9.9 (8-20); Calcium 8.7 mg/dL (8.6-10.3); EGFR African American 13.6 (>60); EGFR Non-African American 11.2 (>60)
[2018-09-10] MEDS: Insulin LISPRO* 1 UNITS UNIT SUBCUT SCH ×4 (08:51→20:54)
[2018-09-10] MEDS: Gemfibrozil TAB* 600 MG PO SCH ×2 (08:52→20:53)
[2018-09-10] MEDS: Heparin VIAL(*) 5000 UNITS/ML VIAL (FIVE THOUSAND) SUBCUT SCH ×2 (08:52→20:54)
[2018-09-10] MEDS: oxyCODONE/Acetamin 5/325 MG* TAB PO PRN (08:52)
[2018-09-10] MEDS: Sevelamer TAB* 800 MG PO SCH ×3 (08:52→17:22)
[2018-09-10] MEDS: Cephalexin CAP* 500 MG PO SCH (08:53)
[2018-09-10] MEDS: Atorvastatin* 80 MG TAB PO SCH (08:53)
[2018-09-10] MEDS: Magnesium Hydroxide LIQ* 30 ML UDC PO SCH ×2 (08:53→20:31)
[2018-09-10] MEDS: Metoprolol Succinate XL TAB* 25 MG PO SCH (08:53)
[2018-09-10] MEDS: Docusate CAP* 100 MG PO SCH ×3 (08:53→20:53)
--- NOTE | 2018-09-10 10:19 | PN ---
Subjective Date of Service: 09/10/18 Interval History: Pt is feeling ok. He is frustrated. He c/o pain in his L wrist and L foot, ankle and calf. He tells me he has dialysis this afternoon at 3pm, nursing then tells me he is mistaken and will be getting dialysis in about 30min. He does not remember me from last evening. He tells me he had a BM a few days ago but nursing again states he has not had a BM since the . Objective Active Medications: Acetaminophen (Tylenol Tab*) 650 mg PO Q6H PRN PRN Reason: FEVER/PAIN Aspirin (Aspirin Tab*) 325 mg PO QPM [facility] Last Admin: 09/09/18 17:51 Dose: 325 mg Atorvastatin Calcium (Lipitor*) 80 mg PO QAM [facility] Last Admin: 09/10/18 08:53 Dose: 80 mg Calcium Carbonate (Tums*) 500 mg PO BID PRN PRN Reason: INDIGESTION Last Admin: 09/05/18 20:54 Dose: 500 mg Cephalexin HCl (Keflex Cap*) 500 mg PO Q24HR [facility] Last Admin: 09/10/18 08:53 Dose: 500 mg Dextrose (D50w Syringe 50 Ml*) 12.5 gm IV PUSH .FOR FS < 60 - SS PRN PRN Reason: FS < 60 Docusate Sodium (Colace Cap*) 100 mg PO BID [facility] Last Admin: 09/10/18 10:04 Dose: 100 mg Gemfibrozil (Lopid Tab*) 600 mg PO BID [facility] Last Admin: 09/10/18 08:52 Dose: 600 mg Heparin Sodium (Porcine) (Heparin Vial(*)) 5,000 units SUBCUT Q12HR [facility] Last Admin: 09/10/18 08:52 Dose: 5,000 units Insulin Human Lispro (Humalog*) 0 units SUBCUT [facility]; Protocol Last Admin: 09/10/18 08:51 Dose: Not Given Magnesium Hydroxide (Milk Of Magnesia Liq*) 30 ml PO BID [facility] Last Admin: 09/10/18 08:53 Dose: Not Given Magnesium Hydroxide (Milk Of Magnesia Liq*) 30 ml PO BID PRN PRN Reason: CONSTIPATION Metoprolol Succinate (Toprol Xl Tab*) 25 mg PO QAM [facility] Last Admin: 09/10/18 08:53 Dose: Not Given Ondansetron HCl (Zofran Inj*) 4 mg IV Q6H PRN PRN Reason: NAUSEA Last Admin: 09/06/18 13:24 Dose: 4 mg Oxycodone/Acetaminophen (Percocet 5/325 Tab*) 1 tab PO Q8H PRN PRN Reason: PAIN Last Admin: 09/10/18 08:52 Dose: 1 tab Polyethylene Glycol/Electrolytes (Miralax*) 17 gm PO DAILY PRN PRN Reason: CONSTIPATION Last Admin: 09/07/18 13:33 Dose: 17 gm Senna (Senokot Tab*) 1 tab PO BEDTIME PRN PRN Reason: CONSTIPATION Sevelamer Carbonate (Renvela Tab*) 1,600 mg PO 0845,1245,1745 GERONIMO Last Admin: 09/10/18 08:52 Dose: 1,600 mg Throat Lozenges (Chloraseptic Kayla*) 1 kayla PO Q6H PRN PRN Reason: COUGH Last Admin: 09/04/18 21:04 Dose: 1 kayla Vital Signs - 8 hr 09/10/18 09/10/18 09/10/18 03:09 07:32 07:52 Temperature 98.0 F 97.7 F Pulse Rate 57 55 Respiratory 20 18 17 Rate Blood Pressure 117/45 124/51 (mmHg) O2 Sat by Pulse 98 98 98 Oximetry 09/10/18 08:52 Temperature Pulse Rate Respiratory 16 Rate Blood Pressure (mmHg) O2 Sat by Pulse Oximetry Oxygen Devices in Use Now: None Appearance: Elderly male sitting up in bed, NAD Eyes: No Scleral Icterus Ears/Nose/Mouth/Throat: Mucous Membranes Moist Respiratory: Symmetrical Chest Expansion and Respiratory Effort, Clear to Auscultation - anteriorly Cardiovascular: NL Sounds; No Murmurs; No JVD, RRR, - - trace R LE edema Abdominal: NL Sounds; No Tenderness; No Distention Extremities: No Clubbing, Cyanosis, - - L wrist is not swollen, he states it hurts to flex/extend the wrist, no erythema, no effusion. L foot s/p toe amputations 2-5. Skin: - - linear ulceration on dorsum of the distal L foot, small punctate ulceration on dorsum of L mid foot, dry eschar covered ulceration on lateral aspect of L foot, no erythema on the foot Neurological: Alert and Oriented x 3 Result Diagrams: 09/10/18 07:00 09/10/18 07:00 Microbiology and Other Data: Microbiology 09/03/18 19:35 Skin and Soft Tissue MRSA/MSSA (PCR - Final Foot Left Mrsa Negative S.aureus Positive Gram Stain - Final 09/02/18 22:33 Aerobic Blood Culture - Preliminary Blood Venous No Growth Day 1 Anaerobic Blood Culture - Preliminary No Growth Day 1 09/02/18 22:49 Aerobic Blood Culture - Preliminary Blood Venous No Growth Day 1 Anaerobic Blood Culture - Preliminary No Growth Day 1 Assess/Plan/Problems-Billing Mr El is a 74yo M with a PMHx of DMII, CKD, CAD, PVD, chronic hypoxic respiratory failure requiring 2L home oxygen, and h/o osteomyelitis and who presents with LLE cellulitis. - Patient Problems (1) Cellulitis Current Visit: Yes Status: Acute Code(s): L03.90 - CELLULITIS, UNSPECIFIED SNOMED Code(s): 442860904 Comment: Cellulitis is resolved. Conitnue keplex for another 2 days. Follow up in wound clinic as scheduled. Wounds are clean and dry. Possibly home today after dialysis-pt is not very mobile and is a tenuous discharge home due to his mobility but he has refused to participate with PT and therefore can not go to rehab. (2) PAD (peripheral artery disease) Current Visit: Yes Status: Acute Code(s): I73.9 - PERIPHERAL VASCULAR DISEASE, UNSPECIFIED SNOMED Code(s): 335612818 Comment: Vascular studies done 02/2018 showed severe calcified vasculopathy of all arteries of the left lower extremity with 50 % stenosis. Continue ASA. (3) Type 2 diabetes mellitus Current Visit: Yes Status: Chronic Priority: High Comment: Last A1c from was 8.8%, however his sugars here have been under good control. A1c is pending. (4) ESRD (end stage renal disease) Current Visit: Yes Status: Acute Code(s): N18.6 - END STAGE RENAL DISEASE SNOMED Code(s): 58474942 Comment: Continue MWF dialysis. (5) Chronic respiratory failure with hypoxia Current Visit: Yes Status: Acute Comment: Continue O2 at 2L. Respiratory status is stable. (6) HTN (hypertension) Current Visit: Yes Status: Chronic Priority: High Code(s): I10 - ESSENTIAL (PRIMARY) HYPERTENSION SNOMED Code(s): 52415475 Comment: BP is under good control. Continue metoprolol. (7) Coronary artery disease Current Visit: Yes Status: Acute Code(s): I25.10 - ATHSCL HEART DISEASE OF [place] CORONARY ARTERY W/O ANG PCTRS SNOMED Code(s): 41484231 Comment: No c/o chest pain. Continue ASA, lipitor and gemfibrozil. (8) DVT prophylaxis Current Visit: Yes Status: Acute Priority: High Code(s): JSE7178 - SNOMED Code(s): 381956731 Comment: SQ heparin (9) Full code status Current Visit: Yes Status: Acute Priority: High Code(s): Z78.9 - OTHER SPECIFIED HEALTH STATUS SNOMED Code(s): 009913487 Comment: Status and Disposition: .
[2018-09-10] MEDS ORDERED: Heparin DIALYSIS ONLY(*) 1,000 UNITS/ML VIAL DIALYSIS ONE (12:00)
[2018-09-10] MEDS: Acetaminophen TAB* 325 MG PO PRN (15:23)
[2018-09-10] MEDS: Aspirin TAB* 325 MG PO SCH (17:18)
[2018-09-11] MEDS: Acetaminophen TAB* 325 MG PO PRN (06:54)
[2018-09-11] MEDS: Insulin LISPRO* 1 UNITS UNIT SUBCUT SCH ×4 (07:45→21:48)
[2018-09-11] MEDS: Atorvastatin* 80 MG TAB PO SCH (09:01)
[2018-09-11] MEDS: Metoprolol Succinate XL TAB* 25 MG PO SCH (09:01)
[2018-09-11] MEDS: Cephalexin CAP* 500 MG PO SCH (09:01)
[2018-09-11] MEDS: Sevelamer TAB* 800 MG PO SCH ×3 (09:01→17:31)
[2018-09-11] MEDS: Docusate CAP* 100 MG PO SCH ×2 (09:02→21:45)
[2018-09-11] MEDS: Gemfibrozil TAB* 600 MG PO SCH ×2 (09:02→21:45)
[2018-09-11] MEDS: Heparin VIAL(*) 5000 UNITS/ML VIAL (FIVE THOUSAND) SUBCUT SCH ×2 (09:03→21:46)
[2018-09-11] MEDS: oxyCODONE/Acetamin 5/325 MG* TAB PO PRN ×2 (10:11→21:45)
[2018-09-11] MEDS: Magnesium Hydroxide LIQ* 30 ML UDC PO SCH (11:40)
[2018-09-11] MEDS: Aspirin TAB* 325 MG PO SCH (17:31)
--- NOTE | 2018-09-11 18:32 | PN ---
Subjective Date of Service: 09/11/18 Interval History: Pt denies any complaints.Initially didnt want to work with PT but willing to work now Objective Active Medications: Acetaminophen (Tylenol Tab*) 650 mg PO Q6H PRN PRN Reason: FEVER/PAIN Last Admin: 09/11/18 06:54 Dose: 650 mg Aspirin (Aspirin Tab*) 325 mg PO QPM [facility] Last Admin: 09/11/18 17:31 Dose: 325 mg Atorvastatin Calcium (Lipitor*) 80 mg PO QAM [facility] Last Admin: 09/11/18 09:01 Dose: 80 mg Calcium Carbonate (Tums*) 500 mg PO BID PRN PRN Reason: INDIGESTION Last Admin: 09/05/18 20:54 Dose: 500 mg Cephalexin HCl (Keflex Cap*) 500 mg PO Q24HR [facility] Last Admin: 09/11/18 09:01 Dose: 500 mg Dextrose (D50w Syringe 50 Ml*) 12.5 gm IV PUSH .FOR FS < 60 - SS PRN PRN Reason: FS < 60 Docusate Sodium (Colace Cap*) 100 mg PO BID [facility] Last Admin: 09/11/18 09:02 Dose: 100 mg Gemfibrozil (Lopid Tab*) 600 mg PO BID [facility] Last Admin: 09/11/18 09:02 Dose: 600 mg Heparin Sodium (Porcine) (Heparin Vial(*)) 5,000 units SUBCUT Q12HR [facility] Last Admin: 09/11/18 09:03 Dose: 5,000 units Insulin Human Lispro (Humalog*) 0 units SUBCUT [facility]; Protocol Last Admin: 09/11/18 17:02 Dose: Not Given Magnesium Hydroxide (Milk Of Magnesia Liq*) 30 ml PO BID PRN PRN Reason: CONSTIPATION Metoprolol Succinate (Toprol Xl Tab*) 25 mg PO QAM [facility] Last Admin: 09/11/18 09:01 Dose: 25 mg Ondansetron HCl (Zofran Inj*) 4 mg IV Q6H PRN PRN Reason: NAUSEA Last Admin: 09/06/18 13:24 Dose: 4 mg Oxycodone/Acetaminophen (Percocet 5/325 Tab*) 1 tab PO Q8H PRN PRN Reason: PAIN Last Admin: 09/11/18 10:11 Dose: 1 tab Polyethylene Glycol/Electrolytes (Miralax*) 17 gm PO DAILY PRN PRN Reason: CONSTIPATION Last Admin: 09/07/18 13:33 Dose: 17 gm Senna (Senokot Tab*) 1 tab PO BEDTIME PRN PRN Reason: CONSTIPATION Sevelamer Carbonate (Renvela Tab*) 1,600 mg PO 0845,1245,1745 GERONIMO Last Admin: 09/11/18 17:31 Dose: 1,600 mg Throat Lozenges (Chloraseptic Kayla*) 1 kayla PO Q6H PRN PRN Reason: COUGH Last Admin: 09/04/18 21:04 Dose: 1 kayla Vital Signs - 8 hr 09/11/18 09/11/18 09/11/18 11:17 13:09 15:09 Temperature 97.6 F Pulse Rate 61 Respiratory 20 18 24 Rate Blood Pressure 124/55 (mmHg) O2 Sat by Pulse 94 97 Oximetry Oxygen Devices in Use Now: None Eyes: No Scleral Icterus Respiratory: Symmetrical Chest Expansion and Respiratory Effort Cardiovascular: NL Sounds; No Murmurs; No JVD Abdominal: NL Sounds; No Tenderness; No Distention Extremities: No Edema, - - dressing intact Neurological: Alert and Oriented x 3 Result Diagrams: 09/10/18 07:00 09/10/18 07:00 Microbiology and Other Data: Microbiology 09/03/18 19:35 Skin and Soft Tissue MRSA/MSSA (PCR - Final Foot Left Mrsa Negative S.aureus Positive Gram Stain - Final 09/02/18 22:33 Aerobic Blood Culture - Preliminary Blood Venous No Growth Day 1 Anaerobic Blood Culture - Preliminary No Growth Day 1 09/02/18 22:49 Aerobic Blood Culture - Preliminary Blood Venous No Growth Day 1 Anaerobic Blood Culture - Preliminary No Growth Day 1 Assess/Plan/Problems-Billing Mr El is a 74yo M with a PMHx of DMII, CKD, CAD, PVD, chronic hypoxic respiratory failure requiring 2L home oxygen, and h/o osteomyelitis and who presents with LLE cellulitis. - Patient Problems (1) Cellulitis Current Visit: Yes Status: Acute Code(s): L03.90 - CELLULITIS, UNSPECIFIED SNOMED Code(s): 172700615 Comment: Cellulitis is resolved. Conitnue keplex for another 2 days. Follow up in wound clinic as scheduled. Wounds are clean and dry. (2) Chronic respiratory failure with hypoxia Current Visit: Yes Status: Acute Comment: Continue O2 at 2L. Respiratory status is stable. (3) Coronary artery disease Current Visit: Yes Status: Acute Code(s): I25.10 - ATHSCL HEART DISEASE OF [place] CORONARY ARTERY W/O ANG PCTRS SNOMED Code(s): 10678376 Comment: No c/o chest pain. Continue ASA, lipitor and gemfibrozil. (4) DVT prophylaxis Current Visit: Yes Status: Acute Priority: High Code(s): KNS5321 - SNOMED Code(s): 989250970 Comment: SQ heparin (5) ESRD (end stage renal disease) Current Visit: Yes Status: Acute Code(s): N18.6 - END STAGE RENAL DISEASE SNOMED Code(s): 23052249 Comment: Continue MWF dialysis. (6) Full code status Current Visit: Yes Status: Acute Priority: High Code(s): Z78.9 - OTHER SPECIFIED HEALTH STATUS SNOMED Code(s): 649765548 Comment: (7) Lethargy Current Visit: Yes Status: Acute Code(s): R53.83 - OTHER FATIGUE SNOMED Code(s): 964302239 Comment: Pt is more awake once Percocet was limited to TID prn (8) PAD (peripheral artery disease) Current Visit: Yes Status: Acute Code(s): I73.9 - PERIPHERAL VASCULAR DISEASE, UNSPECIFIED SNOMED Code(s): 768170704 Comment: Vascular studies done 02/2018 showed severe calcified vasculopathy of all arteries of the left lower extremity with 50 % stenosis. Continue ASA. (9) HTN (hypertension) Current Visit: Yes Status: Chronic Priority: High Code(s): I10 - ESSENTIAL (PRIMARY) HYPERTENSION SNOMED Code(s): 13034886 Comment: BP is under good control. Continue metoprolol. (10) Type 2 diabetes mellitus Current Visit: Yes Status: Chronic Priority: High Comment: Last A1c from was 8.8%, however his sugars here have been under good control. A1c is pending. Status and Disposition: PT/OT eval.Pt willing to work with pt ot now. Will benefit from rehab.Opposed to [facility] inpatient rehab initially.But now willing to work with PT and then figuring out his rehab needs
[2018-09-12] MEDS: Insulin LISPRO* 1 UNITS UNIT SUBCUT SCH ×2 (08:01→12:02)
[2018-09-12] MEDS: oxyCODONE/Acetamin 5/325 MG* TAB PO PRN (08:50)
[2018-09-12] MEDS: Metoprolol Succinate XL TAB* 25 MG PO SCH (08:50)
[2018-09-12] MEDS: Atorvastatin* 80 MG TAB PO SCH (08:50)
[2018-09-12] MEDS: Sevelamer TAB* 800 MG PO SCH ×2 (08:50→13:54)
[2018-09-12] MEDS: Gemfibrozil TAB* 600 MG PO SCH (08:50)
[2018-09-12] MEDS: Cephalexin CAP* 500 MG PO SCH (08:50)
[2018-09-12] MEDS: Docusate CAP* 100 MG PO SCH (08:51)
[2018-09-12] MEDS: Heparin VIAL(*) 5000 UNITS/ML VIAL (FIVE THOUSAND) SUBCUT SCH (08:52)
--- NOTE | 2018-09-12 12:41 | PN ---
Subjective Date of Service: 09/12/18 Interval History: Denies any complaints.Working with PT now Objective Active Medications: Acetaminophen (Tylenol Tab*) 650 mg PO Q6H PRN PRN Reason: FEVER/PAIN Last Admin: 09/11/18 06:54 Dose: 650 mg Aspirin (Aspirin Tab*) 325 mg PO QPM [facility] Last Admin: 09/11/18 17:31 Dose: 325 mg Atorvastatin Calcium (Lipitor*) 80 mg PO QAM [facility] Last Admin: 09/12/18 08:50 Dose: 80 mg Calcium Carbonate (Tums*) 500 mg PO BID PRN PRN Reason: INDIGESTION Last Admin: 09/05/18 20:54 Dose: 500 mg Cephalexin HCl (Keflex Cap*) 500 mg PO Q24HR [facility] Last Admin: 09/12/18 08:50 Dose: 500 mg Dextrose (D50w Syringe 50 Ml*) 12.5 gm IV PUSH .FOR FS < 60 - SS PRN PRN Reason: FS < 60 Docusate Sodium (Colace Cap*) 100 mg PO BID [facility] Last Admin: 09/12/18 08:51 Dose: 100 mg Gemfibrozil (Lopid Tab*) 600 mg PO BID [facility] Last Admin: 09/12/18 08:50 Dose: 600 mg Heparin Sodium (Porcine) (Heparin Vial(*)) 5,000 units SUBCUT Q12HR [facility] Last Admin: 09/12/18 08:52 Dose: 5,000 units Insulin Human Lispro (Humalog*) 0 units SUBCUT [facility]; Protocol Last Admin: 09/12/18 12:02 Dose: Not Given Magnesium Hydroxide (Milk Of Magnesia Liq*) 30 ml PO BID PRN PRN Reason: CONSTIPATION Metoprolol Succinate (Toprol Xl Tab*) 25 mg PO QAM [facility] Last Admin: 09/12/18 08:50 Dose: 25 mg Ondansetron HCl (Zofran Inj*) 4 mg IV Q6H PRN PRN Reason: NAUSEA Last Admin: 09/06/18 13:24 Dose: 4 mg Oxycodone/Acetaminophen (Percocet 5/325 Tab*) 1 tab PO Q8H PRN PRN Reason: PAIN Last Admin: 09/12/18 08:50 Dose: 1 tab Polyethylene Glycol/Electrolytes (Miralax*) 17 gm PO DAILY PRN PRN Reason: CONSTIPATION Last Admin: 09/07/18 13:33 Dose: 17 gm Senna (Senokot Tab*) 1 tab PO BEDTIME PRN PRN Reason: CONSTIPATION Sevelamer Carbonate (Renvela Tab*) 1,600 mg PO 0845,1245,1745 GERONIMO Last Admin: 09/12/18 08:50 Dose: 1,600 mg Throat Lozenges (Chloraseptic Kayla*) 1 kayla PO Q6H PRN PRN Reason: COUGH Last Admin: 09/04/18 21:04 Dose: 1 kayla Vital Signs - 8 hr 09/12/18 09/12/18 09/12/18 07:27 08:50 10:13 Temperature 97.8 F Pulse Rate 58 Respiratory 18 16 20 Rate Blood Pressure 138/58 (mmHg) O2 Sat by Pulse 96 96 Oximetry 09/12/18 11:29 Temperature Pulse Rate Respiratory 16 Rate Blood Pressure (mmHg) O2 Sat by Pulse Oximetry Oxygen Devices in Use Now: None Eyes: No Scleral Icterus Neck: NL Appearance and Movements; NL JVP Respiratory: Symmetrical Chest Expansion and Respiratory Effort Cardiovascular: NL Sounds; No Murmurs; No JVD Abdominal: NL Sounds; No Tenderness; No Distention Extremities: - - 1+ Edema bilaterally L foot toe amputations Dressing intact.Erythema improved Neurological: Alert and Oriented x 3 Result Diagrams: 09/10/18 07:00 09/10/18 07:00 Microbiology and Other Data: Microbiology 09/03/18 19:35 Skin and Soft Tissue MRSA/MSSA (PCR - Final Foot Left Mrsa Negative S.aureus Positive Gram Stain - Final 09/02/18 22:33 Aerobic Blood Culture - Preliminary Blood Venous No Growth Day 1 Anaerobic Blood Culture - Preliminary No Growth Day 1 09/02/18 22:49 Aerobic Blood Culture - Preliminary Blood Venous No Growth Day 1 Anaerobic Blood Culture - Preliminary No Growth Day 1 Assess/Plan/Problems-Billing Mr El is a 74yo M with a PMHx of DMII, CKD, CAD, PVD, chronic hypoxic respiratory failure requiring 2L home oxygen, and h/o osteomyelitis and who presents with LLE cellulitis. - Patient Problems (1) Cellulitis Current Visit: Yes Status: Acute Code(s): L03.90 - CELLULITIS, UNSPECIFIED SNOMED Code(s): 975027174 Comment: Cellulitis is resolved. Conitnue keplex for another day. Follow up in wound clinic as scheduled. Wounds are clean and dry. (2) Chronic respiratory failure with hypoxia Current Visit: Yes Status: Acute Comment: Continue O2 at 2L. Respiratory status is stable. (3) Coronary artery disease Current Visit: Yes Status: Acute Code(s): I25.10 - ATHSCL HEART DISEASE OF [place] CORONARY ARTERY W/O ANG PCTRS SNOMED Code(s): 61979330 Comment: No c/o chest pain. Continue ASA, lipitor and gemfibrozil. (4) ESRD (end stage renal disease) Current Visit: Yes Status: Acute Code(s): N18.6 - END STAGE RENAL DISEASE SNOMED Code(s): 73614790 Comment: Continue MWF dialysis. (5) Lethargy Current Visit: Yes Status: Acute Code(s): R53.83 - OTHER FATIGUE SNOMED Code(s): 013782148 Comment: Pt is more awake once Percocet was limited to TID prn (6) PAD (peripheral artery disease) Current Visit: Yes Status: Acute Code(s): I73.9 - PERIPHERAL VASCULAR DISEASE, UNSPECIFIED SNOMED Code(s): 197960547 Comment: Vascular studies done 02/2018 showed severe calcified vasculopathy of all arteries of the left lower extremity with 50 % stenosis. Continue ASA. (7) HTN (hypertension) Current Visit: Yes Status: Chronic Priority: High Code(s): I10 - ESSENTIAL (PRIMARY) HYPERTENSION SNOMED Code(s): 92776045 Comment: BP is under good control. Continue metoprolol. (8) Type 2 diabetes mellitus Current Visit: Yes Status: Chronic Priority: High Comment: Last A1c from was 8.8%, however his sugars here have been under good control. A1c is pending. (9) DVT prophylaxis Current Visit: Yes Status: Acute Priority: High Code(s): DFG7077 - SNOMED Code(s): 709146457 Comment: SQ heparin (10) Full code status Current Visit: Yes Status: Acute Priority: High Code(s): Z78.9 - OTHER SPECIFIED HEALTH STATUS SNOMED Code(s): 015453079 Comment: Status and Disposition: PT/OT eval.Pt willing to work with pt ot now. Will benefit from rehab.Opposed to goto inpatient rehab initially.But now willing to work with PT and then figuring out his rehab needs Points of Discussion: PT/OT Eval in progress.Pt initially didnt want to work with PT or goto inpatient rehab.But prefers inpatient rehab.manager corporate strategy on case.Working with PT/Ot this weekend to eval discharge needs and rehab.Further d/w case management
[2018-09-12 15:31] VITALS: BP 129/53
--- NOTE | 2018-09-12 20:41 | DS ---
DISCHARGE SUMMARY: DATE OF ADMISSION: 09/03/18 DATE OF DISCHARGE: 09/12/18 PRIMARY DIAGNOSES: 1. Cellulitis. 2. Chronic respiratory failure with hypoxia. 3. Coronary artery disease. 4. End-stage renal disease, on hemodialysis. HOSPITAL COURSE: A 73-year-old male with past medical history of type 2 diabetes, on insulin; ESRD, on hemodialysis Thursday, Thursday, and Thursday; coronary artery disease; vascular disease, came into the hospital with findings suggestive of left lower extremity cellulitis. The patient noted to have significant erythema and warmth, also was noted to have a chronic wound of the left foot and has been seeing the wound care clinic. The patient also has a history of osteomyelitis and chronic left wound ulcer and diabetes. The patient was started on vanco and Zosyn, and had an MRI of his lower extremity to rule out osteomyelitis. MRI showed no evidence of osteomyelitis at the residual foot post 2nd through 5th ray amputation at the level of the Lisfranc joint, diffuse soft tissue edema of the foot, ankle, lower leg, concerning for cellulitis, and myositis was noted, unchanged finding of avascular necrosis versus osteochondral lesion at the dome of the talus. The patient was seen by infectious disease specialist, Dr. Yanes. The differential diagnosis was septic ankle joint versus tenosynovitis. IV antibiotics were switched to Ancef , as the wound grew Staph aureus that was sensitive to penicillin. Recommended orthopedic evaluation for joint evaluation and possible aspiration. Was seen by Dr. Byron Solomon and he thought the patient had significant cellulitis and possible early myositis in the left medial hindfoot area, no bone involvement. Recommended repeat MRI if he had any worsening, otherwise continuing IV antibiotics. The patient also had a left lower extremity ultrasound, negative for DVT, arterial Dopplers done on 03/03/18, showed diffuse 50% stenosis of most of the blood vessels in the left lower extremity. Vanco and Zosyn were discontinued on 09/13/18, and cefazolin after dialysis on HD days, was changed to Keflex daily on 09/07/18 with wound growing MSSA and corynebacterium. Oral antibiotics with Keflex was continued and the patient has had resolution of his acute cellulitis. The patient continues to have chronic wounds in the lower extremity. The patient to follow up with the wound care clinic for further dressing changes and management. The patient initially did not want to work with Physical Therapy and did not want to go to inpatient rehab. was concerned that the patient may benefit from inpatient rehab and further evaluation. The patient did eventually work with Physical Therapy and at this time noted to be stable from the PT standpoint. The patient has been coming to his dialysis appointments with cane, walker, and uses a wheelchair. The patient to continue his dialysis per his outpatient schedule. Vitals and labs noted to be stable at the time of discharge. WBC 5.9, hemoglobin 10.3, hematocrit 34, platelets noted to be 180. PHYSICAL EXAMINATION: HEENT: NCAT. Heart: S1, S2, present regular at the time of exam. Lungs: Decreased breath sounds bilaterally. Abdomen: Soft. Extremities: Noted to have significant chronic edema, also noted to have partial amputation of the left foot, dressing in place. Erythema significantly improved. MEDICATION LIST: At the time of discharge: 1. Gemfibrozil 1 tab p.o. b.i.d. 2. Atorvastatin 80 mg p.o. q.a.m. 3. Metoprolol 25 mg p.o. q.a.m. 4. Insulin with his usual home regimen. 5. Aspirin 325 mg p.o. q.p.m. 6. Renvela 1600 mg p.o. t.i.d. FOLLOWUP: 1. The patient to follow up with his PCP in 1 to 2 weeks. 2. The patient to follow up with the wound care clinic. 3. The patient to follow up for his routine scheduled hemodialysis treatment. TIME SPENT: Total time spent on discharge is equal to 45 minutes. [id number]/[facility] #: [id number] BHARATI
== END 2018-09-12 12:50 | disposition home health service (06) | DRG 602 ==
LOC: ED 20:15 → MED 09-03 02:14
PROVIDERS: ADMIT Internal Medicine; ATTEND Internal Medicine
PROC: 5A1D70Z Performance of Urinary Filtration, Intermittent, Less than 6 Hours Per Day (ICD-10-PCS; principal; 2018-09-03)
PROC: 5A1D70Z Performance of Urinary Filtration, Intermittent, Less than 6 Hours Per Day (ICD-10-PCS; 2018-09-06)
PROC: 5A1D70Z Performance of Urinary Filtration, Intermittent, Less than 6 Hours Per Day (ICD-10-PCS; 2018-09-08)
PROC: 5A1D70Z Performance of Urinary Filtration, Intermittent, Less than 6 Hours Per Day (ICD-10-PCS; 2018-09-10)
DX: L03.116 Cellulitis of left lower limb (principal); N18.6 End stage renal disease; J96.11 Chronic respiratory failure with hypoxia; I13.11 Hypertensive heart and chronic kidney disease without heart failure, with stage 5 chronic kidney disease, or end stage renal disease; L97.929 Non-pressure chronic ulcer of unspecified part of left lower leg with unspecified severity; E11.621 Type 2 diabetes mellitus with foot ulcer; Z99.81 Dependence on supplemental oxygen; E11.22 Type 2 diabetes mellitus with diabetic chronic kidney disease; E11.51 Type 2 diabetes mellitus with diabetic peripheral angiopathy without gangrene; L97.529 Non-pressure chronic ulcer of other part of left foot with unspecified severity; E11.622 Type 2 diabetes mellitus with other skin ulcer; B95.61 Methicillin susceptible Staphylococcus aureus infection as the cause of diseases classified elsewhere; D63.1 Anemia in chronic kidney disease; I25.10 Atherosclerotic heart disease of native coronary artery without angina pectoris; R53.83 Other fatigue; M60.872 Other myositis, left ankle and foot; E66.9 Obesity, unspecified; M65.872 Other synovitis and tenosynovitis, left ankle and foot; Z99.2 Dependence on renal dialysis; Z79.4 Long term (current) use of insulin; Z95.1 Presence of aortocoronary bypass graft; Z79.82 Long term (current) use of aspirin; Z79.899 Other long term (current) drug therapy; Z80.9 Family history of malignant neoplasm, unspecified; Z87.891 Personal history of nicotine dependence; Z68.31 Body mass index [BMI] 31.0-31.9, adult; Z89.422 Acquired absence of other left toe(s)
CPT/HCPCS: 36415; 80048; 80053; 80202; 81003; 81015; 83036; 83605; 85025; 85027; 85610; 85730; 86140; 87040; 87070; 87077; 87086; 87186; 87205; 87640; 87641; 90935; 99284; A9270-GY; G0257; G8978-GP-CI; G8978-GP-CL; G8979-GP-CJ; J0690; J1644; J2270; J2405; J2543; J3370

== ENCOUNTER 2018-12-29 12:12 | Inpatient (IN) | payer MEDICARE, OTHER ==
[2018-12-29] MEDS ORDERED: Dextrose 50% Syringe 50 ML* 25 GM/50 ML SYRINGE IV PUSH PRN (13:35)
[2018-12-29] MEDS ORDERED: Piperacillin/Tazobac ADVAN(*) 3.375 GM in NS 0.9% 100 ML* 100 ML IVPB ONE (13:41)
[2018-12-29] MEDS ORDERED: Zosyn per Pharmacy* NOTE FOLLOW UP SCH (14:00)
[2018-12-29] MEDS: oxyCODONE/Acetamin 5/325 MG* TAB PO PRN ×2 (14:21→19:00)
[2018-12-29] MEDS: Heparin VIAL(*) 5000 UNITS/ML VIAL (FIVE THOUSAND) SUBCUT SCH ×2 (14:22→22:39)
[2018-12-29 14:26] LABS: ABS Eosinophils 0.1 10^3/ul (0-0.6); ABS Lymphocytes 0.5 10^3/ul (1.0-4.8); ABS Monocytes 0.4 10^3/ul (0-0.8); ABS Neutrophils 5.6 10^3/ul (1.5-7.7); Eosinophil % 1.1 %; Hematocrit 30 % (42-52); Hemoglobin 9.7 g/dL (14.0-18.0); Lymphocyte % 7.7 %; Mean Corpuscular HGB Conc 33 g/dL (31-36); Mean Corpuscular Hemoglobin 31 pg (27-31); Mean Corpuscular Volume 93 fL (80-94); Mean Platelet Volume 7.1 fL (7.4-10.4); Platelet Count 228 10^3/uL (150-450); Red Blood Count 3.18 10^6 /uL (4.18-5.48); Red Cell Distribution Width 14 % (10.5-15); White Blood Count 6.6 10^3/uL (3.5-10.8)
[2018-12-29 14:38] LABS: INR 1.21 (0.82-1.09)
[2018-12-29 14:44] LABS: BUN/Creatinine Ratio 8.1 (8-20); C Reactive Protein 107.79 mg/L (<8.01); Calcium 8.5 mg/dL (8.6-10.3); EGFR African American 27.9 (>60); Potassium 3.7 mmol/L (3.5-5.0)
[2018-12-29] MEDS ORDERED: Vancomycin(*) 1,000 MG VIAL IVPB SCH (15:00)
[2018-12-29] MEDS ORDERED: Vancomycin 1500 MG IV - x ONCE IVPB ONE ×2 (15:00)
[2018-12-29] MEDS ORDERED: Vancomycin(*) 0 MG in NS 0.9% 250 ML* 250 ML IVPB SCH (15:00)
[2018-12-29] MEDS ORDERED: Vancomycin per Pharmacy* NOTE FOLLOW UP SCH (16:00)
--- NOTE | 2018-12-29 16:04 | HP ---
CC: Dr. Batista; Dr. Priya Brooks; Dr. Narayanan; Dr. Yanes * HISTORY AND PHYSICAL: DATE OF ADMISSION: 12/29/18 PRIMARY CARE PROVIDER: Dr. Priya Brooks. QA ANALYST: Dr. Batista. ATTENDING PHYSICIAN WHILE IN THE HOSPITAL: Dr. Byron Bowling * (dictated by Leta Hickman NP). CHIEF COMPLAINT: Infection in left foot. HISTORY OF PRESENT ILLNESS: Mr. El is a 73-year-old male with a past medical history significant for type 2 diabetes; chronic end-stage renal disease, on hemodialysis Thursday, Thursday and Thursday; coronary artery disease; peripheral vascular disease and history of osteomyelitis of the left foot who presented from Dr. Yanes's office as a direct admission for infection and cellulitis in the left foot. He will be admitted inpatient. The patient denies any fever , chills, denies any unintended weight loss, denies any chest pain or edema. He does report a cough with clear sputum. Denies any hemoptysis. He does report occasional shortness of breath. No nausea, vomiting, diarrhea or abdominal pain. Gross hematuria or dysuria. Denies any focal weakness or sensory loss. Denies any visual complaints, dysphagia, arthralgias, or myalgias. He does complain of redness and ulceration to the left lateral foot and left heel. No psychosis or anxiety. Due to the findings of cellulitis and concerns of abscess, we were asked to see and evaluate him for admission. PAST MEDICAL HISTORY: Significant for: 1. Type 2 diabetes. 2. Chronic end-stage renal disease on hemodialysis; Thursday, Thursday and Thursday. 3. Coronary artery disease. 4. Chronic oxygen requirement, 2 L nasal cannula at night. 5. Peripheral vascular disease. 6. History of osteomyelitis on the left foot. PAST SURGICAL HISTORY: 1. Umbilical hernia repair. 2. AV fistula in the left arm. 3. Left toe amputation. 4. CABG. 5. Kidney stent. HOME MEDICATIONS: Include: 1. He was currently taking Bactrim 400/80 1 tab p.o. b.i.d. 2. Metoprolol 25 mg p.o. q.a.m. 3. Lispro 6 units with meals twice daily. 4. Renvela 1600 mg at 8:45, 12:45, and 1745. 5. Lopid 1 tab b.i.d. 6. Atorvastatin 80 mg p.o. daily. 7. Aspirin 325 mg p.o. daily. ALLERGIES: No known drug allergies. FAMILY HISTORY: Father at the age of 58 from an [place]. Mother and brothers with diabetes. Brother with unknown type of cancer. SOCIAL HISTORY: The patient is . He lives with his . He is a former smoker. He quit smoking approximately 20 years ago. Prior to that, he smoked for approximately 15 years up to 2 packs a day. Denies any alcohol or illicit drug use. Surrogate decision maker in the event the patient is unable to make his own decisions is his . He is a full code. REVIEW OF SYSTEMS: An 11-point review of systems was completed. All pertinent positives were mentioned in the HPI. PHYSICAL EXAMINATION GENERAL: Mr. El is a 73-year-old male, well developed, well nourished, lying in his hospital bed. He does not appear to be in any acute distress. VITAL SIGNS: Temperature 97.5, heart rate 65, respirations 20, O2 saturation 96 %, blood pressure 137/50. HEENT: Head is atraumatic, normocephalic. Eyes: EOMs are intact. Sclerae anicteric and not pale. Oral mucosa appeared to be moist. NECK: Supple. LUNGS: Clear to auscultation bilaterally. They are diminished throughout. There are no wheezes, rales or rhonchi. CARDIAC: S1, S2. He does have a murmur. Regular rate and rhythm. ABDOMEN: Obese, soft and nontender. Bowel sounds are present x4. EXTREMITIES: He is able to move all 4 extremities. There is no clubbing or cyanosis. He does have erythema noted to the left foot with open ulceration to left lateral midfoot and left heel. Popliteal pulses on the left are +2. Pedal pulses +1 bilaterally. NEUROLOGIC: The patient is awake, alert, oriented x3. Speech is clear. Thought process intact. There are no gross focal deficits. SKIN: He does have an open ulceration noted to left lateral foot and left heel. Imaging is attached in a separate record. LABORATORY DATA AND DIAGNOSTIC STUDIES: The patient has a chest x-ray that is currently pending. Lab work is currently pending. Blood cultures are currently pending. Urinalysis is currently pending. Chest x-ray is currently pending. CTA of the left foot is currently pending. ASSESSMENT AND PLAN: Mr. El is a 73-year-old male with a past medical history significant for diabetes, chronic end-stage renal disease on hemodialysis, coronary artery disease status post CABG, peripheral vascular disease, and history of osteomyelitis who presented with left foot cellulitis and ulceration. He will be admitted inpatient for: 1. Left foot cellulitis/ulceration. I will get blood cultures. I have gotten wound cultures of both wounds on the left foot. They are currently pending. I will get CBC and BMP. We will start him on vancomycin and Zosyn. I will obtain a CT of the foot to rule out abscess. I will give him pain medication. I have consulted Dr. Yanes and Orthopedics. 2. Diabetes. The patient does have type 2 diabetes with vascular and kidney complications. I will place him on fingersticks a.c. with lispro sliding scale. He can have a consistent carb diet. 3. Coronary artery disease. I will continue him on his aspirin, metoprolol, and as previously prescribed. 4. Chronic hypoxic respiratory failure. The patient wears 2 L of oxygen at night. 5. Chronic kidney disease. The patient should continue hemodialysis on Thursday , Thursday and Thursday. I have spoken to the hemodialysis nurse and she is aware that the patient will be inpatient and needing hemodialysis on Thursday. 6. DVT prophylaxis. He will be placed on heparin subcu. 7. Code status. He is a full code. 8. Fluid, electrolytes and nutrition. He will be placed on a consistent carb diet. TIME SPENT: Time spent on this admission was approximately 60 minutes, greater than half that time was spent at the bedside reviewing events leading thus far to his hospitalization, performing physical exam, and reviewing my plan of care. I have discussed this with my attending, Dr. Byron Bowling; he is in agreement with my plan. LETA HICKMAN, ADDIE [id number]/[facility] #: [id number] Addendum,: Lactic Acid: elevated at 2.2. The patient is afebrile, has no tachycardia, no white count. I suspect this could be related to chronic kidney disease as he is on hemodialysis. I will not bolus the patient with fluid as the patient is on hemodialysis and is not currently showing signs of sepsis. MTDD
[2018-12-29] MEDS: Morphine INJ* 2 MG/ML 1 ML SYRINGE (TWO MG - NEW SYRINGE VERSION) IV PRN (16:41)
[2018-12-29] MEDS: Insulin LISPRO* 1 UNITS UNIT SUBCUT SCH (17:44)
[2018-12-29] MEDS ORDERED: ZOSYN 3.375 GM Q12H per EXTENDED INFUSION IVPB SCH ×4 (18:30→20:30)
[2018-12-29] MEDS: Sevelamer TAB* 800 MG PO SCH (18:48)
--- NOTE | 2018-12-29 22:07 | CONS ---
CONSULTATION REPORT: DATE OF CONSULT: 12/29/18 ATTENDING ORTHOPEDIC PROVIDER: Dr. Pearl Narayanan. PRIMARY CARE PROVIDER: Dr. Priya Brooks. GIS ADMINISTRATOR: Dr. Batista. CHIEF COMPLAINT: Infected left foot. HISTORY OF PRESENT ILLNESS: Mr. El is a 73-year-old male, who has a past medical history of diabetes; end-stage renal disease, on hemodialysis Thursday, Thursday, Thursday; coronary artery disease; peripheral vascular disease; osteomyelitis of left foot with subsequent amputation of rays 2 through 5 four months ago. He presents to the hospital today due to direct admission from Dr. Yanes's office with infection and cellulitis of the left foot. The patient has 2 chronic ulcers on the left foot, 1 laterally and 1 of the heel both of which are of pea size and he sees Wound Clinic. Wound Clinic was last seen yesterday. He states that the foot became very red and painful 1 week ago after debridement. Left foot is very painful. Denies any fever, chills, body aches or feeling of illness prior to admission. PAST MEDICAL HISTORY: Type 2 diabetes; end-stage renal disease, on hemodialysis ; coronary artery disease; oxygen requirement 2 L at night; peripheral vascular disease; osteomyelitis of the left foot, now status post amputation, 2nd through 5th ray. PAST SURGICAL HISTORY: Umbilical hernia repair, AV fistula in the left arm, partial foot amputation of the left foot, CABG, kidney stent. MEDICATIONS: As in the patient's chart. ALLERGIES: No known drug allergies. FAMILY HISTORY: Father with [place]. Mother and brother with diabetes. SOCIAL HISTORY: The patient is and lives with his . Former smoker. No alcohol or drug use. REVIEW OF SYSTEMS: General: No fever, chills or recent illness. HEENT: No head trauma. Cardiac: No chest pain. Respiratory: No shortness of breath. Abdomen: No nausea, vomiting or diarrhea. Musculoskeletal: Positive for left foot pain and a history of partial amputation. Neuro: Decreased sensation in left foot. PHYSICAL EXAM: Vital Signs: Temperature 97.5, pulse rate 65, respiratory rate 20, oxygen saturation 96% on room air, blood pressure 137/50. General: Nontoxic appearing, in no acute distress. HEENT: Normocephalic, atraumatic. Extraocular movements intact. Respiratory: Normal rate and effort of breathing. Abdomen: Nondistended. Musculoskeletal: Moving bilateral upper extremities and right lower extremity well without any obvious deformity. Left lower extremity: Surgically absent toes 2 through 5. There is erythema, most prominent on the lateral foot. There is a 0.5 x 0.5 cm ulceration at the lateral side as well as on the heel, both of these ulcers are dry without any purulence. The patient is able to flex and extend the ankle and the first MTP without pain. The foot is warm. Capillary refill on the great toe is 2 seconds. The lateral foot is edematous and quite tender to palpation. Psych: Appropriate affect. DIAGNOSTIC STUDIES/LAB DATA: CT scan did not demonstrate any loculated abscess collection. Osteomyelitis could not be ruled out. For this reason, I have ordered an MRI of the left lower extremity. ASSESSMENT: Cellulitis and diabetic foot ulcers. PLAN: Culture swabs were taken at both sides, though both wounds were dry. lateral wound had minimal bleeding with culture, no purulence. An MRI of the left foot was ordered to rule out abscess or osteomyelitis. As MRI has not been done yet, the patient should remain n.p.o. I have discussed this patient with Dr. Fraire. He agrees with this plan. He should also remain on IV antibiotics. Per Medicine and Infectious Disease, he is currently on Zosyn and vanco, antibiotics to be narrowed per culture results. LEÓN AM [id number]/[facility] #: [id number] [facility]ITALCarolyne
[2018-12-29] MEDS ORDERED: NS 0.9% 100 ML* 100 ML ONE (22:31)
[2018-12-29] MEDS: Gemfibrozil TAB* 600 MG PO SCH (22:39)
[2018-12-29] MEDS: ZOSYN 3.375 GM Q12H per EXTENDED INFUSION IVPB SCH ×2 (22:40)
[2018-12-30] MEDS: oxyCODONE/Acetamin 5/325 MG* TAB PO PRN (00:33)
[2018-12-30 01:33] LABS: Magnesium 1.8 mg/dL (1.9-2.7)
[2018-12-30] MEDS ORDERED: Magnesium Sulfate 1 GM IV* 1 GM/100 ML BAG IV ONE (03:00)
[2018-12-30] MEDS: Morphine INJ* 2 MG/ML 1 ML SYRINGE (TWO MG - NEW SYRINGE VERSION) IV PRN ×4 (05:05→23:30)
[2018-12-30] MEDS: Heparin VIAL(*) 5000 UNITS/ML VIAL (FIVE THOUSAND) SUBCUT SCH ×3 (06:58→21:02)
[2018-12-30] MEDS: Insulin LISPRO* 1 UNITS UNIT SUBCUT SCH ×3 (08:26→17:41)
[2018-12-30] MEDS: ZOSYN 3.375 GM Q12H per EXTENDED INFUSION IVPB SCH ×4 (09:25→21:01)
[2018-12-30] MEDS: Sevelamer TAB* 800 MG PO SCH ×3 (09:25→18:01)
[2018-12-30] MEDS: Metoprolol Succinate XL TAB* 25 MG PO SCH (09:25)
[2018-12-30] MEDS: Atorvastatin* 80 MG TAB PO SCH (09:25)
[2018-12-30] MEDS: Gemfibrozil TAB* 600 MG PO SCH ×2 (09:25→21:06)
[2018-12-30 10:22] LABS: Hematocrit 31 % (42-52); Hemoglobin 10.4 g/dL (14.0-18.0); Mean Corpuscular HGB Conc 33 g/dL (31-36); Mean Corpuscular Hemoglobin 31 pg (27-31); Mean Corpuscular Volume 93 fL (80-94); Mean Platelet Volume 7.4 fL (7.4-10.4); Platelet Count 228 10^3/uL (150-450); Red Blood Count 3.33 10^6 /uL (4.18-5.48); Red Cell Distribution Width 15 % (10-15); White Blood Count 6.6 10^3/uL (3.5-10.8)
[2018-12-30 10:40] LABS: Calcium 8.3 mg/dL (8.6-10.3); Potassium 4.2 mmol/L (3.5-5.0)
[2018-12-30 10:45] LABS: EGFR African American 19.7 (>60); EGFR Non-African American 16.3 (>60)
[2018-12-30] MEDS ORDERED: Pantoprazole TAB * 40 MG TAB PO ONE (14:03)
--- NOTE | 2018-12-30 14:10 | PN ---
Subjective Date of Service: 12/30/18 Interval History: Pt is feeling ok. He states he has continues pain at the lateral aspect of the left foot but it is somewhat better. The erythema is definitely better than on admission. Currently he feels as if his stomach is upset and unsettled from lunch. Objective Active Medications: Acetaminophen (Tylenol Tab*) 650 mg PO Q4H PRN PRN Reason: FEVER/PAIN Atorvastatin Calcium (Lipitor*) 80 mg PO QAM [facility] Last Admin: 12/30/18 09:25 Dose: 80 mg Dextrose (D50w Syringe 50 Ml*) 12.5 gm IV PUSH .FOR FS < 60 - SS PRN PRN Reason: FS < 60 Gemfibrozil (Lopid Tab*) 600 mg PO BID [facility] Last Admin: 12/30/18 09:25 Dose: 600 mg Heparin Sodium (Porcine) (Heparin Vial(*)) 5,000 units SUBCUT Q8HR [facility] Last Admin: 12/30/18 12:58 Dose: 5,000 units Piperacillin Sod/Tazobactam (Sod 3.375 gm/ Sodium Chloride) 100 mls @ 25 mls/ hr IVPB Q12H [facility] Last Admin: 12/30/18 09:25 Dose: 25 mls/hr Insulin Human Lispro (Humalog*) 0 units SUBCUT [facility]; Protocol Last Admin: 12/30/18 12:58 Dose: 1 units Metoprolol Succinate (Toprol Xl Tab*) 25 mg PO QAM [facility] Last Admin: 12/30/18 09:25 Dose: 25 mg Morphine Sulfate (Morphine Inj (Syringe))*) 2 mg IV Q6H PRN PRN Reason: PAIN - MODERATE TO SEVERE Last Admin: 12/30/18 10:47 Dose: 2 mg Oxycodone/Acetaminophen (Percocet 5/325 Tab*) 1 tab PO Q4H PRN PRN Reason: PAIN - MODERATE Last Admin: 12/30/18 00:33 Dose: 1 tab Pharmacy Consult (Zosyn Per Pharmacy*) 1 note FOLLOW UP .ZOSYN PER PHARMACY [facility] Sevelamer Carbonate (Renvela Tab*) 1,600 mg PO 0845,1245,1745 [facility] Last Admin: 12/30/18 12:58 Dose: 1,600 mg Vital Signs - 8 hr 12/30/18 12/30/18 12/30/18 06:59 08:00 10:47 Temperature 98.1 F Pulse Rate 72 Respiratory 18 16 18 Rate Blood Pressure 112/62 (mmHg) O2 Sat by Pulse 92 Oximetry 12/30/18 12/30/18 12:00 12:28 Temperature 98.2 F Pulse Rate 54 Respiratory 16 16 Rate Blood Pressure 130/52 (mmHg) O2 Sat by Pulse 94 Oximetry Oxygen Devices in Use Now: None Appearance: Elderly male sitting up in bed, NAD Eyes: No Scleral Icterus Ears/Nose/Mouth/Throat: Mucous Membranes Moist Respiratory: Symmetrical Chest Expansion and Respiratory Effort, Clear to Auscultation - decreased breath sounds at the bases Cardiovascular: NL Sounds; No Murmurs; No JVD, RRR, - - trace LE edema Abdominal: NL Sounds; No Tenderness; No Distention Extremities: No Clubbing, Cyanosis Skin: No Nodules or Sclerosis Neurological: Alert and Oriented x 3 Result Diagrams: 12/30/18 09:56 12/30/18 09:56 Microbiology and Other Data: Microbiology 12/29/18 16:00 Skin and Soft Tissue MRSA/MSSA (PCR - Final Foot Left Mrsa Negative S.aureus Negative Gram Stain - Final Wound Culture - Preliminary No Growth Day 1 12/29/18 16:00 Gram Stain - Final Foot Left Assess/Plan/Problems-Billing Mr El is a 73 yo M with a h/o ESRD on HD and chronic wounds followed by the wound clinic who was sent to the ER for evaluation of cellulitis of the L foot. - Patient Problems (1) Cellulitis Current Visit: Yes Status: Acute Code(s): L03.90 - CELLULITIS, UNSPECIFIED SNOMED Code(s): 712612995 Comment: Cellulitis is reportedly improving. Will continue vancomycin and zosyn for now. Await recommendations from ID. Continue local wound care. (2) Type 2 diabetes mellitus Current Visit: Yes Status: Chronic Priority: High Comment: A1c in 09/14 was 6.3%. Continue lispro sliding scale- sugars have been under very good control. (3) Coronary artery disease Current Visit: Yes Status: Acute Code(s): I25.10 - ATHSCL HEART DISEASE OF [place] CORONARY ARTERY W/O ANG PCTRS SNOMED Code(s): 75158272 Comment: No c/o chest pain. Continue ASA, lipitor and gemfibrozil. (4) ESRD (end stage renal disease) Current Visit: Yes Status: Acute Code(s): N18.6 - END STAGE RENAL DISEASE SNOMED Code(s): 46299125 Comment: Continue MWF dialysis. (5) HTN (hypertension) Current Visit: Yes Status: Chronic Priority: High Code(s): I10 - ESSENTIAL (PRIMARY) HYPERTENSION SNOMED Code(s): 15908672 Comment: BP is under good control. Continue metoprolol. (6) PAD (peripheral artery disease) Current Visit: Yes Status: Acute Code(s): I73.9 - PERIPHERAL VASCULAR DISEASE, UNSPECIFIED SNOMED Code(s): 749797631 Comment: Vascular studies done in 2018 showed severe calcified vasculopathy of all arteries of the left lower extremity with 50% stenosis. Continue ASA. (7) DVT prophylaxis Current Visit: Yes Status: Acute Priority: High Code(s): FLL7541 - SNOMED Code(s): 498928413 Comment: SQ heparin (8) Full code status Current Visit: Yes Status: Acute Priority: High Code(s): Z78.9 - OTHER SPECIFIED HEALTH STATUS SNOMED Code(s): 546186671 Comment:
--- NOTE | 2018-12-30 14:16 | PN ---
Progress Note - Progress Note Date of Service: 12/30/18 SOAP: Subjective: []I saw Rickie this morning, his left foot pain and redness have improved overnight. Denies fever or chills. Objective: []Gen: NAD, nontoxic appearing LLE: Left foot with surgically absent toes/metatarsals 2-5. Erythema at the lateral midfoot is improved from yesterday, remains tender and dry peasized ulcer remains. Dry heel ulcer also unchanged from yesterday. Able to flex and extend at the ankle and 1st mtp without pain. Sensation is intact to light touch , capillary refill 2 seconds. Assessment: []Cellulitis, diabetic ulcers left foot Plan: []MRI reviewed with Dr Fraire, no osteomyelitis or abscess seen. Continue antibiotics per ID and contact orthopedics with any worsening or new concerns. Vital Signs Temp 98.2 F 12/30/18 12:00 Pulse 54 12/30/18 12:00 Resp 16 12/30/18 12:28 BP 130/52 12/30/18 12:00 Pulse Ox 94 12/30/18 12:00 Intake & Output 12/29/18 12/30/18 12/30/18 18:59 06:59 18:59 Intake Total 330 383 960 Output Total 300 Balance 330 383 660 Weight 228 lb 12.8 oz Intake: IV Fluids 383 vanco 294 zosyn 89 IVPB 100 vanco 0 zosyn 100 Oral 230 0 960 Output: Urine 300 Other: Estimated Void Small Date of Last Bowel 12/29/18 Movement # Bowel Movements 0 # Voids 0 1 Laboratory Last Values WBC 6.6 10^3/uL (3.5-10.8) 12/30/18 09:56 RBC 3.33 10^6 /uL (4.18-5.48) L 12/30/18 09:56 Hgb 10.4 g/dL (14.0-18.0) L 12/30/18 09:56 Hct 31 % (42-52) L 12/30/18 09:56 MCV 93 fL (80-94) 12/30/18 09:56 MCH 31 pg (27-31) 12/30/18 09:56 MCHC 33 g/dL (31-36) 12/30/18 09:56 RDW 15 % (10-15) 12/30/18 09:56 Plt Count 228 10^3/uL (150-450) 12/30/18 09:56 MPV 7.4 fL (7.4-10.4) 12/30/18 09:56 Neut % (Auto) 84.6 % 12/29/18 14:15 Lymph % (Auto) 7.7 % 12/29/18 14:15 Centre % (Auto) 6.0 % 12/29/18 14:15 Eos % (Auto) 1.1 % 12/29/18 14:15 Baso % (Auto) 0.6 % 12/29/18 14:15 Absolute Neuts (auto) 5.6 10^3/ul (1.5-7.7) 12/29/18 14:15 Absolute Lymphs (auto) 0.5 10^3/ul (1.0-4.8) L 12/29/18 14:15 Absolute Monos (auto) 0.4 10^3/ul (0-0.8) 12/29/18 14:15 Absolute Eos (auto) 0.1 10^3/ul (0-0.6) 12/29/18 14:15 Absolute Basos (auto) 0.0 10^3/ul (0-0.2) 12/29/18 14:15 Absolute Nucleated RBC 0.0 10^3/ul 12/29/18 14:15 Nucleated RBC % 0.0 12/29/18 14:15 INR (Anticoag Therapy) 1.21 (0.82-1.09) H 12/29/18 14:15 Sodium 137 mmol/L (135-145) 12/30/18 09:56 Potassium 4.2 mmol/L (3.5-5.0) 12/30/18 09:56 Chloride 95 mmol/L (101-111) L 12/30/18 09:56 Carbon Dioxide 35 mmol/L (22-32) H 12/30/18 09:56 Anion Gap 7 mmol/L (2-11) 12/30/18 09:56 BUN 33 mg/dL (6-24) H 12/30/18 09:56 Creatinine 3.67 mg/dL (0.67-1.17) H 12/30/18 09:56 Est GFR ( Amer) 19.7 (>60) 12/30/18 09:56 Est GFR (Non-Af Amer) 16.3 (>60) 12/30/18 09:56 BUN/Creatinine Ratio 9.0 (8-20) 12/30/18 09:56 Glucose 133 mg/dL (70-100) H 12/30/18 09:56 POC Glucose (mg/dL) 134 mg/dL (70-100) H 12/30/18 12:00 Lactic Acid 2.2 mmol/L (0.5-2.0) H* 12/29/18 14:16 Calcium 8.3 mg/dL (8.6-10.3) L 12/30/18 09:56 Magnesium 2.0 mg/dL (1.9-2.7) 12/30/18 09:56 C-Reactive Protein 107.79 mg/L (<8.01) H 12/29/18 14:15
[2018-12-30] MEDS: Calcium Carbonate CHEW TAB* 500 MG (TUMS) PO PRN (14:18)
--- NOTE | 2018-12-30 18:00 | CONS ---
CONSULTATION REPORT: DATE OF CONSULT: 12/30/18 PRIMARY CARE PROVIDER: Dr. Priya Broosk. PROVIDER REQUESTING CONSULTATION: Leta Hickman NP CONSULTING SERVICE: Infectious Disease. PROVIDER: Martha Martinez NP MY ATTENDING PROVIDER: Dr. Jl Yanes.* (DICTATED BY MARTHA MARTINEZ NP) REASON FOR CONSULTATION: Left foot cellulitis. IMPRESSION: 1. Left foot cellulitis. The patient has a history of Staphylococcus aureus and corynebacterium growing from this foot in the past. He had an MRI without signs of abscess or osteomyelitis. He has no leukocytosis. He is afebrile. He does have an elevated CRP at 107.79 on admission. There is a small area of eschar to the lateral aspect of his foot and some erythema that per report is improving from yesterday. 2. Diabetes mellitus type 2. 3. End-stage renal disease, on hemodialysis. PLAN: Recommend discontinuing the vancomycin as his initial culture is negative for MRSA and Staph aureus. Continue Zosyn until his foot has had more improvement, then he could be transitioned to oral antibiotics for discharge. Recommend performing wound care per the wound clinic's recommendations, which is silver calcium alginate to the open areas followed by gauze, and rolled gauze. HISTORY OF PRESENT ILLNESS: Mr. El is a 73-year-old male with past medical history significant for diabetes mellitus type 2; end-stage renal disease, on hemodialysis; CAD; peripheral vascular disease; left foot osteo with a history of a left second to fifth ray partial foot amputation, who originally had an open wound in his incision line at the site of the amputation in his left foot, who is followed by the wound clinic. He states that this area healed and he developed some swelling on the lateral aspect of his foot and is being followed by the wound clinic for. He states that a little over a week ago, he had a debridement of this area, at which point, he developed pain the next day. He was initially started on Keflex by Dr. Daily on 12/23/18. He saw the wound clinic again 2 days ago and this had become painful with erythema. He was then placed on Bactrim. The wound clinic referred him to Dr. Yanes's office for evaluation. He was seen in Dr. Yanes's office, and it was recommended that he be hospitalized for IV antibiotics. It is also to note that he has a chronic left heel ulcer also. While in the hospital, he had a lower extremity CT scan showing suggestion of potential soft tissue ulceration at the great toenail bed, diffuse soft tissue edema throughout the field of view. No loculated abscess collection. Advanced diffuse osteoporosis at the midfoot related to his amputation. 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 There is also noted to be infiltrative change suggesting cellulitis distally with no visualized abscess or changes convincing for osteomyelitis". He had a wound culture that was MRSA and Staph aureus negative. He denies any fevers, chills, body aches, joint or muscle pain other than constant pain in his left foot that he describes is a throbbing and a 6/10. The pain is decreased with pain medicine. He denies rash, diarrhea, constipation, urinary symptoms such as urgency, frequency, dysuria. He denies any recent travel. PAST MEDICAL HISTORY: 1. Diabetes mellitus type 2. 2. End-stage renal disease, on hemodialysis Thursday, Thursday, Thursday. 3. Peripheral vascular disease. 4. Coronary artery disease. 5. Left foot osteomyelitis, status post partial foot amputation. PAST SURGICAL HISTORY: 1. Status post umbilical hernia repair. 2. Status post left arm AV fistula. 3. Status post coronary artery bypass graft. 4. Status post ureteral stent insertion and removal. 5. Status post left foot second to fifth ray partial amputation. MEDICATIONS: Home medications: 1. Bactrim SS 400/80 one tablet by mouth twice daily. 2. Metoprolol succinate 25 mg by mouth every morning. 3. Insulin 6 units subcutaneous with meals twice daily. 4. Sevelamer 1600 mg 3 times daily. 5. Gemfibrozil 600 mg by mouth twice daily. 6. Atorvastatin 80 mg by mouth daily. 7. Aspirin 325 mg by mouth daily. Hospital medications: 1. Acetaminophen 650 mg by mouth every 4 hours as needed for fever or pain. 2. Atorvastatin 80 mg by mouth every morning. 3. Dextrose 50%, 12.5 g IV push as needed for glucose less than 60. 4. Gemfibrozil 600 mg by mouth twice daily. 5. Heparin sodium 5000 units subcutaneous every 8 hours. 6. Humalog insulin sliding scale subcutaneous with meals. 7. Magnesium sulfate 1 g IV x1. 8. Metoprolol succinate 25 mg by mouth every morning. 9. Morphine 2 mg IV every 6 hours as needed for pain. 10. Percocet 5/325 one tablet by mouth every 4 hours as needed for pain. 11. Zosyn 3.375 g IV every 12 hours. 12. Sevelamer 1600 mg by mouth 3 times daily. 13. Vancomycin per pharmacy protocol. ALLERGIES: No known drug allergies. FAMILY HISTORY: Denies family history of recurrent infections or tuberculosis. Father passed from an [place] at age 58. Mother and brother with a history of diabetes, brother with a history of renal cancer, and mother with a history of cancer, but he is unsure what type. SOCIAL HISTORY: Denies alcohol or recreational drug use. He is a former smoker , quitting approximately 20 years ago. Prior to that, he had a 15-year 2 pack a day smoking history. REVIEW OF SYSTEMS: I performed a 10-point review of systems. All the pertinent positives and negatives are mentioned in the history of present illness. The remaining review of systems is negative. PHYSICAL EXAMINATION: Vital Signs: Temperature 98.1, heart rate 72, respiratory rate 16, O2 sat 92% on room air, blood pressure 112/62. General Appearance: He is alert, pleasant, appears to be in no acute distress. Head: Normocephalic, atraumatic. EENT: Pupils equal, reactive to light. Extraocular movements are intact. Mucous membranes are moist. There is no thrush. Neck: Supple. No lymphadenopathy. Neurological: Cranial nerves II through XII are grossly intact. He is alert and oriented x4. Cardiovascular: Regular rate and rhythm. S1, S2 present. No murmurs, rubs, or gallops heard. Respiratory: No accessory muscle use. The lungs are clear to auscultation bilateral. Abdomen: Bowel sounds positive. Abdomen is soft, large, nontender. Extremities: No lower extremity edema. DP, PT pulses are 1+ and symmetric. He has full range of motion of his left ankle. Psychological: Calm and cooperative. Skin: He has a partial foot amputation of the second to fifth toes. There is a small area of dark eschar to the lateral aspect of his foot measuring 0.8 x 0.7 x 0.1 with surrounding erythema measuring approximately 6 cm x 10 cm. This area is painful to touch with palpation. There is no fluctuance or induration noted. DIAGNOSTIC STUDIES/LAB DATA: Sodium 137, potassium 3.7, chloride 94, CO2 of 37 , BUN 22, creatinine 2.72, glucose 237. White blood cell count 6.6, hemoglobin 9.7, hematocrit 30, platelet count 228. Lactic acid 2.2. CRP 107.79. Wound culture with initial PCR negative for MRSA and Staph aureus, final culture is pending. See impression and recommendations outlined above. Thank you for asking us to see Mr. El in consultation. Recommendations have been reviewed with Dr. Prudence Whitman. The plan of care has been discussed with my attending, Dr. Jl Yanes, who agrees with the plan of care. Reviewed by HEMANTH SMITH-C 01/02/19 1104 [id number]/CPS #: [id number] MTDD
[2018-12-31] MEDS: oxyCODONE/Acetamin 5/325 MG* TAB PO PRN ×5 (02:30→23:41)
[2018-12-31] MEDS: Morphine INJ* 2 MG/ML 1 ML SYRINGE (TWO MG - NEW SYRINGE VERSION) IV PRN (05:41)
[2018-12-31] MEDS: Heparin VIAL(*) 5000 UNITS/ML VIAL (FIVE THOUSAND) SUBCUT SCH ×3 (05:42→21:17)
[2018-12-31] MEDS ORDERED: Vancomycin Random Level* NOTE FOLLOW UP ONE (06:00)
[2018-12-31] MEDS: Sevelamer TAB* 800 MG PO SCH ×3 (09:07→17:23)
[2018-12-31] MEDS: Atorvastatin* 80 MG TAB PO SCH (09:08)
[2018-12-31] MEDS: Metoprolol Succinate XL TAB* 25 MG PO SCH (09:08)
[2018-12-31] MEDS: Insulin LISPRO* 1 UNITS UNIT SUBCUT SCH ×3 (09:08→17:23)
[2018-12-31] MEDS: Gemfibrozil TAB* 600 MG PO SCH ×2 (09:08→21:17)
[2018-12-31] MEDS: Pantoprazole TAB * 40 MG TAB PO SCH (09:08)
[2018-12-31] MEDS: ZOSYN 3.375 GM Q12H per EXTENDED INFUSION IVPB SCH ×2 (09:10)
[2018-12-31] MEDS ORDERED: Heparin DIALYSIS ONLY(*) 1,000 UNITS/ML VIAL DIALYSIS ONE (11:00)
[2018-12-31 12:33] LABS: Hepatitis B Surface Antigen Negative (Negative)
[2018-12-31 12:51] LABS: Hepatitis B Surface Ab Not Immune (Immune)
[2018-12-31 14:51] LABS: Albumin 2.9 g/dL (3.2-5.2)
[2018-12-31 14:57] LABS: Phosphorus 2.8 mg/dL (2.5-5.0)
[2018-12-31] MEDS ORDERED: ZOSYN 3.375 GM Q12H per EXTENDED INFUSION IVPB SCH ×2 (18:00)
--- NOTE | 2018-12-31 18:01 | PN ---
Subjective Date of Service: 12/31/18 Interval History: Pt is feeling ok. He was nauseated earlier today and vomited a few times. He states this happens at home. He denies any pain at rest but does have pain on the lateral aspect of the left foot on palpation. Objective Active Medications: Acetaminophen (Tylenol Tab*) 650 mg PO Q4H PRN PRN Reason: FEVER/PAIN Atorvastatin Calcium (Lipitor*) 80 mg PO QAM [facility] Last Admin: 12/31/18 09:08 Dose: 80 mg Calcium Carbonate (Tums*) 500 mg PO Q4H PRN PRN Reason: INDIGESTION Last Admin: 12/30/18 14:18 Dose: 500 mg Dextrose (D50w Syringe 50 Ml*) 12.5 gm IV PUSH .FOR FS < 60 - SS PRN PRN Reason: FS < 60 Gemfibrozil (Lopid Tab*) 600 mg PO BID [facility] Last Admin: 12/31/18 09:08 Dose: 600 mg Heparin Sodium (Porcine) (Heparin Vial(*)) 5,000 units SUBCUT Q8HR [facility] Last Admin: 12/31/18 14:40 Dose: 5,000 units Clindamycin HCl/Dextrose (Cleocin 600 Mg/50 Ml(*)) 600 mg in 50 mls @ 100 mls/ hr IV Q8H [facility] Insulin Human Lispro (Humalog*) 0 units SUBCUT [facility]; Protocol Last Admin: 12/31/18 17:23 Dose: 1 units Metoprolol Succinate (Toprol Xl Tab*) 25 mg PO QAM [facility] Last Admin: 12/31/18 09:08 Dose: 25 mg Morphine Sulfate (Morphine Inj (Syringe))*) 2 mg IV Q6H PRN PRN Reason: PAIN - MODERATE TO SEVERE Last Admin: 12/31/18 05:41 Dose: 2 mg Oxycodone/Acetaminophen (Percocet 5/325 Tab*) 1 tab PO Q4H PRN PRN Reason: PAIN - MODERATE Last Admin: 12/31/18 14:46 Dose: 1 tab Pantoprazole Sodium (Protonix Tab*) 40 mg PO DAILY [facility] Last Admin: 12/31/18 09:08 Dose: 40 mg Sevelamer Carbonate (Renvela Tab*) 1,600 mg PO 0845,1245,1745 [facility] Last Admin: 12/31/18 17:23 Dose: 1,600 mg Vital Signs - 8 hr 12/31/18 12/31/18 12/31/18 11:00 14:46 15:38 Temperature 97.6 F Pulse Rate 60 Respiratory 17 18 24 Rate Blood Pressure 118/42 (mmHg) O2 Sat by Pulse 97 Oximetry 12/31/18 17:23 Temperature Pulse Rate Respiratory 18 Rate Blood Pressure (mmHg) O2 Sat by Pulse Oximetry Oxygen Devices in Use Now: None Appearance: Elderly male sitting up in bed, NAD Eyes: No Scleral Icterus Ears/Nose/Mouth/Throat: Mucous Membranes Moist Respiratory: Symmetrical Chest Expansion and Respiratory Effort, Clear to Auscultation Cardiovascular: NL Sounds; No Murmurs; No JVD, RRR, - - trace LE edema Abdominal: NL Sounds; No Tenderness; No Distention Extremities: No Clubbing, Cyanosis Skin: - - mild erythema overlying lateral aspect of left foot, there is a 0.5- 0.7cm eschar with a pinpoint hole that purulent bloody material is able to be expressed, 0.5cm ulceration on L heel Neurological: Alert and Oriented x 3 Result Diagrams: 12/30/18 09:56 12/30/18 09:56 Microbiology and Other Data: Microbiology 12/29/18 16:00 Skin and Soft Tissue MRSA/MSSA (PCR - Final Foot Left Mrsa Negative S.aureus Negative Gram Stain - Final Wound Culture - Preliminary No Growth Day 1 12/29/18 16:00 Gram Stain - Final Foot Left Assess/Plan/Problems-Billing Mr El is a 73 yo M who has a h/o ESRD and chronic wounds on the L foot followed by the wound clinic who was sent to the hospital for evaluation of cellulitis of the L foot after an attempt at an I&D in the wound clinic previously. - Patient Problems (1) Cellulitis Current Visit: Yes Status: Acute Code(s): L03.90 - CELLULITIS, UNSPECIFIED SNOMED Code(s): 513543346 Comment: Cellulitis is improving. Will change to clindamycin 600mg IV q8hr as culture from the lateral aspect of the L foot is growing S aureus. There is now a pinpoint hole where pus is draining. Will continue IV Abx and monitor for further improvement or worsening. (2) Type 2 diabetes mellitus Current Visit: Yes Status: Chronic Priority: High Comment: A1c in 2/19 was 6.3%. Continue lispro sliding scale- sugars have been under very good control. (3) Coronary artery disease Current Visit: Yes Status: Acute Code(s): I25.10 - ATHSCL HEART DISEASE OF [place] CORONARY ARTERY W/O ANG PCTRS SNOMED Code(s): 57004589 Comment: No c/o chest pain. Continue ASA, lipitor and gemfibrozil. (4) HTN (hypertension) Current Visit: Yes Status: Chronic Priority: High Code(s): I10 - ESSENTIAL (PRIMARY) HYPERTENSION SNOMED Code(s): 57987908 Comment: BP is under good control. Continue metoprolol. (5) PAD (peripheral artery disease) Current Visit: Yes Status: Acute Code(s): I73.9 - PERIPHERAL VASCULAR DISEASE, UNSPECIFIED SNOMED Code(s): 269605363 Comment: Vascular studies done in 2018 showed severe calcified vasculopathy of all arteries of the left lower extremity with 50% stenosis. Continue ASA. (6) ESRD (end stage renal disease) Current Visit: Yes Status: Acute Code(s): N18.6 - END STAGE RENAL DISEASE SNOMED Code(s): 41373032 Comment: Continue MWF dialysis. (7) DVT prophylaxis Current Visit: Yes Status: Acute Priority: High Code(s): OXQ4143 - SNOMED Code(s): 360592653 Comment: SQ heparin (8) Full code status Current Visit: Yes Status: Acute Priority: High Code(s): Z78.9 - OTHER SPECIFIED HEALTH STATUS SNOMED Code(s): 712062159 Comment:
[2018-12-31] MEDS: Clindamycin 600 MG IVPREMIX(* 600 MG/50 ML SDV IV SCH (18:34)
[2019-01-01] MEDS: Clindamycin 600 MG IVPREMIX(* 600 MG/50 ML SDV IV SCH ×3 (02:05→17:02)
[2019-01-01] MEDS: Heparin VIAL(*) 5000 UNITS/ML VIAL (FIVE THOUSAND) SUBCUT SCH ×3 (05:27→20:36)
[2019-01-01] MEDS: oxyCODONE/Acetamin 5/325 MG* TAB PO PRN ×4 (05:27→19:45)
[2019-01-01] MEDS: Insulin LISPRO* 1 UNITS UNIT SUBCUT SCH ×3 (08:20→17:02)
[2019-01-01] MEDS: Sevelamer TAB* 800 MG PO SCH ×3 (08:33→17:02)
[2019-01-01] MEDS: Metoprolol Succinate XL TAB* 25 MG PO SCH (08:33)
[2019-01-01] MEDS: Pantoprazole TAB * 40 MG TAB PO SCH (08:33)
[2019-01-01] MEDS: Gemfibrozil TAB* 600 MG PO SCH ×2 (08:33→20:35)
[2019-01-01] MEDS: Atorvastatin* 80 MG TAB PO SCH (08:33)
--- NOTE | 2019-01-01 14:18 | PN ---
Subjective Date of Service: 01/01/19 Interval History: L foot pain somewhat better today, although much too painful with WB. Sleeps OK , no bowel c/o. OK at rest. No new c/o. Objective Active Medications: Acetaminophen (Tylenol Tab*) 650 mg PO Q4H PRN PRN Reason: FEVER/PAIN Atorvastatin Calcium (Lipitor*) 80 mg PO QAM [facility] Last Admin: 01/01/19 08:33 Dose: 80 mg Calcium Carbonate (Tums*) 500 mg PO Q4H PRN PRN Reason: INDIGESTION Last Admin: 12/30/18 14:18 Dose: 500 mg Dextrose (D50w Syringe 50 Ml*) 12.5 gm IV PUSH .FOR FS < 60 - SS PRN PRN Reason: FS < 60 Gemfibrozil (Lopid Tab*) 600 mg PO BID [facility] Last Admin: 01/01/19 08:33 Dose: 600 mg Heparin Sodium (Porcine) (Heparin Vial(*)) 5,000 units SUBCUT Q8HR [facility] Last Admin: 01/01/19 12:37 Dose: 5,000 units Clindamycin HCl/Dextrose (Cleocin 600 Mg Ivpremix(*) Sdv) 600 mg in 50 mls @ 100 mls/hr IV Q8H [facility] Last Admin: 01/01/19 10:16 Dose: 100 mls/hr Insulin Human Lispro (Humalog*) 0 units SUBCUT [facility]; Protocol Last Admin: 01/01/19 12:37 Dose: 1 units Metoprolol Succinate (Toprol Xl Tab*) 25 mg PO [facility] Last Admin: 01/01/19 08:33 Dose: 25 mg Morphine Sulfate (Morphine Inj (Syringe))*) 2 mg IV Q6H PRN PRN Reason: PAIN - MODERATE TO SEVERE Last Admin: 12/31/18 05:41 Dose: 2 mg Oxycodone/Acetaminophen (Percocet 5/325 Tab*) 1 tab PO Q4H PRN PRN Reason: PAIN - MODERATE Last Admin: 01/01/19 10:16 Dose: 1 tab Pantoprazole Sodium (Protonix Tab*) 40 mg PO DAILY [facility] Last Admin: 01/01/19 08:33 Dose: 40 mg Sevelamer Carbonate (Renvela Tab*) 1,600 mg PO [id number] [facility] Last Admin: 01/01/19 12:37 Dose: 1,600 mg Vital Signs - 8 hr 01/01/19 01/01/19 01/01/19 06:27 08:20 08:21 Temperature 97.4 F Pulse Rate 52 Respiratory 16 18 18 Rate Blood Pressure 103/41 (mmHg) O2 Sat by Pulse 99 Oximetry 01/01/19 01/01/19 01/01/19 08:35 10:16 11:39 Temperature 98.2 F Pulse Rate 64 Respiratory 18 18 16 Rate Blood Pressure 111/64 (mmHg) O2 Sat by Pulse 100 Oximetry 01/01/19 12:07 Temperature Pulse Rate Respiratory 18 Rate Blood Pressure (mmHg) O2 Sat by Pulse Oximetry Oxygen Devices in Use Now: Nasal Cannula Appearance: Alert, partly up in bed. In good spirits. Looks comfortable. Eyes: No Scleral Icterus Extremities: No Edema, No Clubbing, Cyanosis Skin: No Nodules or Sclerosis, - - L foot ols durgical deformity. Erythema lateral distal aspect with central small ulcer. Very tender. Neurological: Alert and Oriented x 3, - - Impaired memory, says his has all the info. Result Diagrams: 12/30/18 09:56 12/30/18 09:56 Microbiology and Other Data: Microbiology 12/29/18 16:00 Skin and Soft Tissue MRSA/MSSA (PCR - Final Foot Left Mrsa Negative S.aureus Negative Gram Stain - Final Wound Culture - Preliminary No Growth Day 1 12/29/18 16:00 Gram Stain - Final Foot Left Assess/Plan/Problems-Billing Mr El is a 73 yo M with a h/o ESRD on HD and chronic wounds followed by the wound clinic who was sent to the ER for evaluation of cellulitis of the L foot. - Patient Problems (1) Cellulitis Current Visit: Yes Status: Acute Code(s): L03.90 - CELLULITIS, UNSPECIFIED SNOMED Code(s): 117903308 Comment: Continue clindanycin as per ID. Continue local wound care. PT ordered as patient is extremely limited in ambulation with pain on WB. (2) Coronary artery disease Current Visit: Yes Status: Acute Code(s): I25.10 - ATHSCL HEART DISEASE OF [place] CORONARY ARTERY W/O ANG PCTRS SNOMED Code(s): 81932187 Comment: No c/o chest pain. Continue ASA, lipitor and gemfibrozil. (3) ESRD (end stage renal disease) Current Visit: Yes Status: Acute Code(s): N18.6 - END STAGE RENAL DISEASE SNOMED Code(s): 78823741 Comment: Continue MWF dialysis. (4) Type 2 diabetes mellitus Current Visit: Yes Status: Chronic Priority: High Comment: A1c in 09/14 was 6.3%. Continue lispro sliding scale. Using much less insulin here than at home. (5) HTN (hypertension) Current Visit: Yes Status: Chronic Priority: High Code(s): I10 - ESSENTIAL (PRIMARY) HYPERTENSION SNOMED Code(s): 62549958 Comment: BP is under good control. Continue metoprolol. (6) PAD (peripheral artery disease) Current Visit: Yes Status: Acute Code(s): I73.9 - PERIPHERAL VASCULAR DISEASE, UNSPECIFIED SNOMED Code(s): 369145631 Comment: Vascular studies done in 2018 showed severe calcified vasculopathy of all arteries of the left lower extremity with 50% stenosis. Continue ASA.
[2019-01-01] MEDS: Aspirin 81 mg CHEW TAB* 81 MG TAB.CHEW PO SCH (14:52)
[2019-01-02] MEDS: Morphine INJ* 2 MG/ML 1 ML SYRINGE (TWO MG - NEW SYRINGE VERSION) IV PRN
[2019-01-02] MEDS: Clindamycin 600 MG IVPREMIX(* 600 MG/50 ML SDV IV SCH ×3 (02:08→17:20)
[2019-01-02] MEDS: Heparin VIAL(*) 5000 UNITS/ML VIAL (FIVE THOUSAND) SUBCUT SCH ×3 (06:06→21:33)
[2019-01-02] MEDS: Aspirin 81 mg CHEW TAB* 81 MG TAB.CHEW PO SCH (08:39)
[2019-01-02] MEDS: Atorvastatin* 80 MG TAB PO SCH (08:39)
[2019-01-02] MEDS: Metoprolol Succinate XL TAB* 25 MG PO SCH (08:39)
[2019-01-02] MEDS: Pantoprazole TAB * 40 MG TAB PO SCH (08:39)
[2019-01-02] MEDS: Sevelamer TAB* 800 MG PO SCH ×3 (08:39→17:19)
[2019-01-02] MEDS: Insulin LISPRO* 1 UNITS UNIT SUBCUT SCH ×3 (08:39→17:19)
[2019-01-02] MEDS: Gemfibrozil TAB* 600 MG PO SCH ×2 (08:40→21:33)
[2019-01-02] MEDS: oxyCODONE/Acetamin 5/325 MG* TAB PO PRN ×2 (11:17→22:13)
--- NOTE | 2019-01-02 12:11 | PN ---
Progress Note - Progress Note Date of Service: 01/02/19 SOAP: Subjective: Pt. reports pain is minimal, drainage is moderate. He is frustrated with mixed messages from different team members. Objective: Vital Signs: Temp Pulse Resp BP Pulse Ox 98.0 F 54 18 121/59 98 01/02/19 11:16 01/02/19 11:16 01/02/19 11:17 01/02/19 11:16 01/02/19 11:16 Laboratory Results - last 24 hr 01/01/19 01/02/19 01/02/19 16:23 08:22 11:22 POC Glucose (mg/dL) 144 H 170 H 180 H LLE - 3 small open wounds on prior amputation site. One dorsal, one lateral and one on heel. Lateral wound with draining purulence. Cellulitis improved when compared to marker outline. Decreased sens lt. +df/pf. Assessment: 73 yo diabetic male with prior L foot amp of 2-5 metatarsals. Open wounds are chronic and treated by Dr. Daily in the wound clinic. Admitted now 5 days with iv ABX for cellulitis. Plan: Cellulitis improved but now lateral wound is draining. CT/MRI negative for abscess or osteomyelitis - suspect osteomyelitis regardless. Pt. is now not ambulating. needs dvt proph and to mobilize as much as possible. Recommend wbat with RW. Will have foot/ankle team re-evaluate in the AM. Dressing changes per nursing BID or as needed.
--- NOTE | 2019-01-02 12:54 | PN ---
Subjective Date of Service: 01/02/19 Interval History: Pain in L foot about the same today. No bowel c/o. Objective Active Medications: Acetaminophen (Tylenol Tab*) 650 mg PO Q4H PRN PRN Reason: FEVER/PAIN Aspirin (Aspirin 81 Mg Chew Tab*) 81 mg PO DAILY [facility] Last Admin: 01/02/19 08:39 Dose: 81 mg Atorvastatin Calcium (Lipitor*) 80 mg PO QAM [facility] Last Admin: 01/02/19 08:39 Dose: 80 mg Calcium Carbonate (Tums*) 500 mg PO Q4H PRN PRN Reason: INDIGESTION Last Admin: 12/30/18 14:18 Dose: 500 mg Dextrose (D50w Syringe 50 Ml*) 12.5 gm IV PUSH .FOR FS < 60 - SS PRN PRN Reason: FS < 60 Gemfibrozil (Lopid Tab*) 600 mg PO BID [facility] Last Admin: 01/02/19 08:40 Dose: Not Given Heparin Sodium (Porcine) (Heparin Vial(*)) 5,000 units SUBCUT Q8HR [facility] Last Admin: 01/02/19 12:18 Dose: 5,000 units Clindamycin HCl/Dextrose (Cleocin 600 Mg Ivpremix(*) Sdv) 600 mg in 50 mls @ 100 mls/hr IV Q8H [facility] Last Admin: 01/02/19 09:50 Dose: 100 mls/hr Insulin Human Lispro (Humalog*) 0 units SUBCUT [facility]; Protocol Last Admin: 01/02/19 12:17 Dose: 2 units Metoprolol Succinate (Toprol Xl Tab*) 25 mg PO [facility] Last Admin: 01/02/19 08:39 Dose: 25 mg Morphine Sulfate (Morphine Inj (Syringe))*) 2 mg IV Q6H PRN PRN Reason: PAIN - MODERATE TO SEVERE Last Admin: 01/02/19 00:00 Dose: 2 mg Oxycodone/Acetaminophen (Percocet 5/325 Tab*) 1 tab PO Q4H PRN PRN Reason: PAIN - MODERATE Last Admin: 01/02/19 11:17 Dose: 1 tab Pantoprazole Sodium (Protonix Tab*) 40 mg PO DAILY [facility] Last Admin: 01/02/19 08:39 Dose: 40 mg Sevelamer Carbonate (Renvela Tab*) 1,600 mg PO [id number] [facility] Last Admin: 01/02/19 12:18 Dose: 1,600 mg Vital Signs - 8 hr 01/02/19 01/02/19 01/02/19 07:34 07:36 11:16 Temperature 97.8 F 98.0 F Pulse Rate 65 54 Respiratory 18 18 18 Rate Blood Pressure 121/56 121/59 (mmHg) O2 Sat by Pulse 96 98 Oximetry 01/02/19 01/02/19 11:17 12:30 Temperature Pulse Rate Respiratory 18 18 Rate Blood Pressure (mmHg) O2 Sat by Pulse Oximetry Oxygen Devices in Use Now: None Appearance: Alert, in a chair. In fair spirits. Looks comfortable. Eyes: No Scleral Icterus Extremities: No Edema, No Clubbing, Cyanosis, - - L foot surgical deformity, bandaged. Skin: No Rash or Ulcers, No Nodules or Sclerosis, - Neurological: Alert and Oriented x 3, NL Sensation Result Diagrams: 12/30/18 09:56 12/30/18 09:56 Microbiology and Other Data: Microbiology 12/29/18 16:00 Skin and Soft Tissue MRSA/MSSA (PCR - Final Foot Left Mrsa Negative S.aureus Negative Gram Stain - Final Wound Culture - Preliminary No Growth Day 1 12/29/18 16:00 Gram Stain - Final Foot Left Assess/Plan/Problems-Billing Mr El is a 73 yo M with a h/o ESRD on HD and chronic wounds followed by the wound clinic who was sent to the ER for evaluation of cellulitis of the L foot. - Patient Problems (1) Cellulitis Current Visit: Yes Status: Acute Code(s): L03.90 - CELLULITIS, UNSPECIFIED SNOMED Code(s): 895518963 Comment: Continue clindanycin as per ID. Continue local wound care. PT ordered as patient is extremely limited in ambulation with pain on WB. Discussed with Dr. Gabriel. Foot/ankle team will evaluate 01/03. (2) Coronary artery disease Current Visit: Yes Status: Acute Code(s): I25.10 - ATHSCL HEART DISEASE OF [place] CORONARY ARTERY W/O ANG PCTRS SNOMED Code(s): 73586292 Comment: No c/o chest pain. Continue ASA, lipitor and gemfibrozil. (3) ESRD (end stage renal disease) Current Visit: Yes Status: Acute Code(s): N18.6 - END STAGE RENAL DISEASE SNOMED Code(s): 80802363 Comment: Continue MWF dialysis. (4) Type 2 diabetes mellitus Current Visit: Yes Status: Chronic Priority: High Comment: A1c in 09/14 was 6.3%. Continue lispro sliding scale. Using much less insulin here than at home. Adequate glycemic control as of 01/02/19. (5) HTN (hypertension) Current Visit: Yes Status: Chronic Priority: High Code(s): I10 - ESSENTIAL (PRIMARY) HYPERTENSION SNOMED Code(s): 38074512 Comment: BP is under good control. Continue metoprolol. (6) PAD (peripheral artery disease) Current Visit: Yes Status: Acute Code(s): I73.9 - PERIPHERAL VASCULAR DISEASE, UNSPECIFIED SNOMED Code(s): 710814006 Comment: Vascular studies done in 2018 showed severe calcified vasculopathy of all arteries of the left lower extremity with 50% stenosis. Continue ASA.
[2019-01-03] MEDS: Clindamycin 600 MG IVPREMIX(* 600 MG/50 ML SDV IV SCH ×4 (02:15→17:26)
[2019-01-03] MEDS: Heparin VIAL(*) 5000 UNITS/ML VIAL (FIVE THOUSAND) SUBCUT SCH ×3 (06:19→22:56)
[2019-01-03] MEDS: Insulin LISPRO* 1 UNITS UNIT SUBCUT SCH ×3 (07:32→17:26)
[2019-01-03] MEDS: Sevelamer TAB* 800 MG PO SCH ×3 (08:21→17:26)
[2019-01-03] MEDS: Metoprolol Succinate XL TAB* 25 MG PO SCH (08:21)
[2019-01-03] MEDS: Aspirin 81 mg CHEW TAB* 81 MG TAB.CHEW PO SCH (08:21)
[2019-01-03] MEDS: Pantoprazole TAB * 40 MG TAB PO SCH (08:22)
[2019-01-03] MEDS: Atorvastatin* 80 MG TAB PO SCH (08:22)
[2019-01-03] MEDS: oxyCODONE/Acetamin 5/325 MG* TAB PO PRN ×3 (08:22→23:54)
[2019-01-03] MEDS: Gemfibrozil TAB* 600 MG PO SCH ×2 (08:22→22:56)
[2019-01-03 08:53] LABS: ABS Basophils 0.1 10^3/ul (0-0.2); ABS Eosinophils 0.2 10^3/ul (0-0.6); ABS Lymphocytes 0.7 10^3/ul (1.0-4.8); ABS Monocytes 0.3 10^3/ul (0-0.8); ABS Neutrophils 4.5 10^3/ul (1.5-7.7); Eosinophil % 3.6 %; Hematocrit 32 % (42-52); Hemoglobin 10.6 g/dL (14.0-18.0); Lymphocyte % 12.5 %; Mean Corpuscular HGB Conc 33 g/dL (31-36); Mean Corpuscular Hemoglobin 31 pg (27-31); Mean Corpuscular Volume 93 fL (80-94); Mean Platelet Volume 7.4 fL (7.4-10.4); Nucleated Red Blood Cells % 0.1; Platelet Count 227 10^3/uL (150-450); Red Blood Count 3.41 10^6 /uL (4.18-5.48); Red Cell Distribution Width 15 % (10-15); White Blood Count 5.8 10^3/uL (3.5-10.8)
[2019-01-03 09:08] LABS: Potassium 4.4 mmol/L (3.5-5.0)
[2019-01-03 09:09] LABS: BUN/Creatinine Ratio 9.9 (8-20); Calcium 8.4 mg/dL (8.6-10.3); EGFR Non-African American 9.9 (>60); Magnesium 2.3 mg/dL (1.9-2.7); One Over Creatinine 0.17; Phosphorus 5.5 mg/dL (2.5-5.0)
--- NOTE | 2019-01-03 09:37 | PN ---
Progress Note - Progress Note Date of Service: 01/03/19 SOAP: Subjective: CC: Left foot cellulitis HPI: Mr. 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 Mr. El reports not feeling well today, and having a cough with clear mucous production. Reports pain in the left foot, but feels that it is improving. He was able to ambulate on the foot easier today. Denies fever, chills, ABD pain, nausea, vomiting, or diarrhea. Objective: Vital Signs - 8 hr 01/03/19 01/03/19 03:50 08:22 Temperature 97.4 F Pulse Rate 56 Respiratory 20 18 Rate Blood Pressure 121/47 (mmHg) O2 Sat by Pulse 96 Oximetry Physical Exam: General: NAD, sitting up in the bed Neurological: Alert and Oriented x4 HEENT: No thrush, moist MM Cardiovascular: Heart rate regular Respiratory: Lung sounds clear bilateral Abdominal: Bowel sounds present; ABD soft, non tender, and non distended Musculosketal: Able to move left ankle, there is edema to the lateral aspect of the foot and pain with palpation at that area Skin: There is a small area of black eschar measuring about 0.8 cm x 0.7 cm. There is surrounding erythema, that is blanching. There is an area where purulent drainage is able to be expressed Laboratory Results - last 24 hr 01/03/19 01/03/19 08:24 08:24 WBC 5.8 RBC 3.41 L Hgb 10.6 L Hct 32 L MCV 93 MCH 31 MCHC 33 RDW 15 Plt Count 227 MPV 7.4 Neut % (Auto) 77.5 Lymph % (Auto) 12.5 [place] % (Auto) 5.2 Eos % (Auto) 3.6 Baso % (Auto) 1.2 Absolute Neuts (auto) 4.5 Absolute Lymphs (auto) 0.7 L Absolute Monos (auto) 0.3 Absolute Eos (auto) 0.2 Absolute Basos (auto) 0.1 Absolute Nucleated RBC 0.0 Nucleated RBC % 0.1 Sodium 133 L Potassium 4.4 Chloride 95 L Carbon Dioxide 29 Anion Gap 9 BUN 56 H Creatinine 5.63 H 1/Creatinine 0.17 Est GFR ( Amer) 12.0 Est GFR (Non-Af Amer) 9.9 BUN/Creatinine Ratio 9.9 Glucose 115 H POC Glucose (mg/dL) Calcium 8.4 L Phosphorus 5.5 H Magnesium 2.3 Microbiology 12/29/18 14:15 Aerobic Blood Culture - Preliminary Blood Venous No Growth Day 4 Anaerobic Blood Culture - Preliminary No Growth Day 4 12/29/18 16:00 Gram Stain - Final Foot Left Wound Culture - Final Staphylococcus Aureus Normal Jero 12/29/18 16:00 Skin and Soft Tissue MRSA/MSSA (PCR - Final Foot Left Mrsa Negative S.aureus Negative Gram Stain - Final Wound Culture - Final Normal Jero Assessment: 1. Left foot cellulitis. Has grown staph aureus and corynebacterium in this foot in the past. Wound culture from 12/29/18 growing staph aureus and normal jero. Afebrile and no leukocytosis. CRP elevated on admission. Was started on Zosyn and Vanco at the time of admission and was narrowed to Zosyn alone. He was than changed to Clindamycin on 12/31/18. There is some purulent drainage from the lateral aspect of the left foot today. 2. DM2. 3. ESRD on hemodialysis. Plan: Continue Clindamycin for now. Will add a CRP to this AMs labs. Can consider transitioning to oral ABX once there is improvement in the foot. Wound culture obtained today from the left lateral foot. Will discuss with orthopedics about the possible need for debridement.
[2019-01-03 11:31] LABS: C Reactive Protein 140.82 mg/L (<8.01)
[2019-01-03] MEDS ORDERED: Heparin DIALYSIS ONLY(*) 1,000 UNITS/ML VIAL DIALYSIS ONE (13:00)
--- NOTE | 2019-01-03 13:04 | PN ---
DIALYSIS NOTE: DATE OF DIALYSIS: 01/03/19 SUBJECTIVE: The patient seen and examined during dialysis. The patient is tolerating the procedure well. His usual prescription being followed with UF goal to his dry weight. Discussed plan with the infectious disease team. PHYSICAL EXAMINATION: HEENT: NCAT. Heart: S1, S2 present. Regular at the time of exam. Lungs: Decreased breath sounds bilaterally. Abdomen: Soft. Extremities: Noted to have no edema. Left foot in dressing. Neuro: Alert and oriented. We will follow with the primary medical team. [id number]/[facility] #: [id number] MTDD
--- NOTE | 2019-01-03 15:11 | PN ---
Subjective Date of Service: 01/03/19 Interval History: Patient reports somewhat easier ambulation, still limited to the BR. No new c/ o. Objective Active Medications: Acetaminophen (Tylenol Tab*) 650 mg PO Q4H PRN PRN Reason: FEVER/PAIN Aspirin (Aspirin 81 Mg Chew Tab*) 81 mg PO DAILY [facility] Last Admin: 01/03/19 08:21 Dose: 81 mg Atorvastatin Calcium (Lipitor*) 80 mg PO QAM [facility] Last Admin: 01/03/19 08:22 Dose: 80 mg Calcium Carbonate (Tums*) 500 mg PO Q4H PRN PRN Reason: INDIGESTION Last Admin: 12/30/18 14:18 Dose: 500 mg Dextrose (D50w Syringe 50 Ml*) 12.5 gm IV PUSH .FOR FS < 60 - SS PRN PRN Reason: FS < 60 Gemfibrozil (Lopid Tab*) 600 mg PO BID [facility] Last Admin: 01/03/19 08:22 Dose: 600 mg Heparin Sodium (Porcine) (Heparin Vial(*)) 5,000 units SUBCUT Q8HR [facility] Last Admin: 01/03/19 12:54 Dose: 5,000 units Clindamycin HCl/Dextrose (Cleocin 600 Mg Ivpremix(*) Sdv) 600 mg in 50 mls @ 100 mls/hr IV Q8H [facility] Last Admin: 01/03/19 13:27 Dose: 100 mls/hr Insulin Human Lispro (Humalog*) [address] [facility]; Protocol Last Admin: 01/03/19 12:47 Dose: Not Given Metoprolol Succinate (Toprol Xl Tab*) 25 mg PO [facility] Last Admin: 01/03/19 08:21 Dose: 25 mg Morphine Sulfate (Morphine Inj (Syringe))*) 2 mg IV Q6H PRN PRN Reason: PAIN - MODERATE TO SEVERE Last Admin: 01/02/19 00:00 Dose: 2 mg Oxycodone/Acetaminophen (Percocet 5/325 Tab*) 1 tab PO Q4H PRN PRN Reason: PAIN - MODERATE Last Admin: 01/03/19 13:28 Dose: 1 tab Pantoprazole Sodium (Protonix Tab*) 40 mg PO DAILY [facility] Last Admin: 01/03/19 08:22 Dose: 40 mg Sevelamer Carbonate (Renvela Tab*) 1,600 mg PO [id number],[id number] [facility] Last Admin: 01/03/19 12:54 Dose: 1,600 mg Vital Signs - 8 hr 01/03/19 01/03/19 01/03/19 08:00 08:22 13:28 Respiratory 18 18 18 Rate Oxygen Devices in Use Now: None Appearance: Alert, partly up in bed. Eyes: No Scleral Icterus Extremities: No Edema, No Clubbing, Cyanosis, - - L foot bandaged. Skin: - - Small black eschar measuring about 1 X 1cm with surrounding erythema. Purulent drainage is can be expressed Neurological: Alert and Oriented x 3, NL Sensation Result Diagrams: 01/03/19 08:24 01/03/19 08:24 Microbiology and Other Data: Microbiology 12/29/18 16:00 Skin and Soft Tissue MRSA/MSSA (PCR - Final Foot Left Mrsa Negative S.aureus Negative Gram Stain - Final Wound Culture - Preliminary No Growth Day 1 12/29/18 16:00 Gram Stain - Final Foot Left Assess/Plan/Problems-Billing Mr El is a 73 yo M with a h/o ESRD on HD and chronic wounds followed by the wound clinic who was sent to the ER for evaluation of cellulitis of the L foot. - Patient Problems (1) Cellulitis Current Visit: Yes Status: Acute Code(s): L03.90 - CELLULITIS, UNSPECIFIED SNOMED Code(s): 192202713 Comment: Continue clindanycin as per ID. Continue local wound care. PT ordered as patient is extremely limited in ambulation with pain on WB. Discussed with Dr. Gabriel. Dr Solomon saw patient and felt the imaging showed evidence of osteo and recommended surgical debridement. I spoke with ID 01/03 and they will get back to me regarding antibiotic tx. (2) Coronary artery disease Current Visit: Yes Status: Acute Code(s): I25.10 - ATHSCL HEART DISEASE OF [place] CORONARY ARTERY W/O ANG PCTRS SNOMED Code(s): 89931582 Comment: No c/o chest pain. Continue ASA, lipitor and gemfibrozil. (3) ESRD (end stage renal disease) Current Visit: Yes Status: Acute Code(s): N18.6 - END STAGE RENAL DISEASE SNOMED Code(s): 66851019 Comment: Continue MWF dialysis. (4) Type 2 diabetes mellitus Current Visit: Yes Status: Chronic Priority: High Comment: A1c in 09/14 was 6.3%. Continue lispro sliding scale. Using much less insulin here than at home. Adequate glycemic control as of 01/02/19. (5) HTN (hypertension) Current Visit: Yes Status: Chronic Priority: High Code(s): I10 - ESSENTIAL (PRIMARY) HYPERTENSION SNOMED Code(s): 33730854 Comment: BP is under good control. Continue metoprolol. (6) PAD (peripheral artery disease) Current Visit: Yes Status: Acute Code(s): I73.9 - PERIPHERAL VASCULAR DISEASE, UNSPECIFIED SNOMED Code(s): 945124158 Comment: Vascular studies done in 2018 showed severe calcified vasculopathy of all arteries of the left lower extremity with 50% stenosis. Continue ASA.
--- NOTE | 2019-01-03 17:05 | PN ---
PROGRESS NOTE: DATE OF SERVICE: 01/03/19 INTERVAL HISTORY: Rickie is a 73-year-old gentleman who has had hemodialysis, end-stage renal disease, and type 2 diabetes. He also has peripheral vascular disease and osteomyelitis in the left foot previously. He had essentially an extensive 2, 3, 4 and 5 ray amputation of his left foot previously. At this point, he has had perhaps several weeks of pain, drainage and redness along the lateral border. He is admitted for observation, IV antibiotics, and dialysis. PHYSICAL EXAMINATION: The examination shows him to have a very slender foot with only a great toe and first metatarsal on the forefoot, relatively plantigrade surprisingly. There is a prominence around the base of the fifth metatarsal with a 3 x 4 cm red area and somewhat eschar area over this, slightly fluctuant and quite painful. IMPRESSION AND PLAN: His MRI shows him to have some uptake in the remaining base of the fifth metatarsal bone and I believe he has some osteomyelitis there. He will need to have this debrided in my opinion. I will discuss this with the patient and his previous orthopedic surgeon as well. [id number]/[facility] #: [id number] BHARATI
[2019-01-04] MEDS: Clindamycin 600 MG IVPREMIX(* 600 MG/50 ML SDV IV SCH ×3 (03:00→18:04)
[2019-01-04] MEDS: oxyCODONE/Acetamin 5/325 MG* TAB PO PRN (05:11)
[2019-01-04] MEDS: Heparin VIAL(*) 5000 UNITS/ML VIAL (FIVE THOUSAND) SUBCUT SCH ×3 (06:19→21:37)
[2019-01-04] MEDS: Insulin LISPRO* 1 UNITS UNIT SUBCUT SCH ×3 (08:05→17:09)
[2019-01-04] MEDS: Pantoprazole TAB * 40 MG TAB PO SCH (08:17)
[2019-01-04] MEDS: Atorvastatin* 80 MG TAB PO SCH (08:17)
[2019-01-04] MEDS: Aspirin 81 mg CHEW TAB* 81 MG TAB.CHEW PO SCH (08:17)
[2019-01-04] MEDS: Metoprolol Succinate XL TAB* 25 MG PO SCH (08:17)
[2019-01-04] MEDS: Sevelamer TAB* 800 MG PO SCH ×3 (08:22→18:08)
--- NOTE | 2019-01-04 08:22 | PN ---
Progress Note - Progress Note Date of Service: 01/04/19 Note: I saw and examined Rickie this morning. He is a diabetic with peripheral vascular disease and a prior lateral forefoot amputation at [facility]. He has been admitted with a left foot cellulitis, and 2 small ulcers, one at the lateral base of the fifth metatarsal and one at the heel. He has been on antibiotics and overall the erythema and cellulitis have improved, except for locally at the fifth metatarsal base ulcer. He reports this area remains tender. Please see prior consultation and note for full H&P. On examination today, the heel ulcer is only a few millimeters in diameter, no surrounding erythema, and does not probe deep. The fifth metatarsal base ulcer is also only a couple of millimeters in diameter. There still is some localized swelling and erythema surrounding the ulcer. No active drainage on examination today. It is mildly tender. His CRP yesterday was 140, up from 107 on the fifth. I reviewed his MRI with Dr. Solomon, and although the read by the radiologist is negative for osteomyelitis, there is some signal at the base of the fifth metatarsal remnant. No evidence of osteomyelitis at the heel. I discussed with Rickie that it is unclear whether or not there is osteomyelitis at this remnant of the fifth metatarsal. If there is osteomyelitis, this could explain the lack of improvement locally, while the rest of the foot has improved. Even if not osteomyelitic, it appears to be causing pressure from the inside, which may be impeding healing as well. We did discuss both nonsurgical and surgical options. He feels this area has not improved with IV antibiotics and was agreeable to excision of the base of the fifth metatarsal. So, we did discuss a left foot I&D, excision of the base of the fifth metatarsal, and possible wound VAC. Risks of surgery reviewed at length. We will plan on moving forward with this on . Jesu Fraire MD
[2019-01-04] MEDS: Gemfibrozil TAB* 600 MG PO SCH ×2 (08:26→21:37)
--- NOTE | 2019-01-04 14:18 | PN ---
Progress Note - Progress Note Date of Service: 01/04/19 SOAP: Subjective: CC: Left foot cellulitis HPI: 73 yo male with hx left 2nd to 5th ray amputation, now with left foot infection centered over a lateral foot ulcer. Redness, swelling, pain are better now. HD tomorrow. I&D planned for . Objective: Vital Signs Temp 36.1 C 01/04/19 07:15 Pulse 54 01/04/19 07:15 Resp 18 01/04/19 07:38 BP 130/52 01/04/19 07:15 Pulse Ox 97 01/04/19 07:15 Intake & Output 01/03/19 01/04/19 01/04/19 18:59 06:59 18:59 Intake Total 840 430 750 Output Total 0 Balance 840 430 750 Weight 218 lb Intake: IV Fluids 20 NS (0.9%) 20 IVPB 50 Clindamycin 50 Oral 840 360 750 Output: Urine 0 Other: # Bowel Movements 1 Estimated Stool Amount Medium Medium # Voids 0 Exam: General: NAD, resting comfortably Neuro:AAOx3, decr sensation BL feet HEENT: No thrush Cardiovascular: Heart rate regular Respiratory: Lung clear bilaterally Abdominal: Bowel sounds +, ABD soft, non tender, and non distended Musculosketal: left lateral foot wound about 0.8 cm x 0.7 cm mild surrounding erythema Laboratory Results - last 24 hr 01/03/19 01/04/19 01/04/19 17:25 07:09 11:46 POC Glucose (mg/dL) 113 H 113 H 119 H Assessment: 1. Left foot cellulitis with possible osteomyelitis 2. DM2 with neuropathy. 3. ESRD on hemodialysis. Plan: Continue Clindamycin . I&D , further recs pending operative findings
--- NOTE | 2019-01-04 15:40 | CONSULT ---
Subjective Date of Service: 01/04/19 Interval History: Mr. 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 He presented to the hospital with a known wound to his left lateral foot and is followed by the [facility]. Patient seen and examined at bedside. Family History: Unchanged from Admission Social History: Unchanged from Admission Past Medical History: Unchanged from Admission Review of Systems - Measurements Intake and Output: Intake and Output Last 24 Hours 01/02/19 01/03/19 01/04/19 01/05/19 06:59 06:59 06:59 06:59 Intake Total 1210 1070 1270 750 Output Total 190 155 0 Balance 4902 556 2888 750 Weight 235 lb 240 lb 218 lb Intake: IV Fluids 15 20 20 NS (0.9%) 15 20 20 IVPB 55 50 50 Clindamycin 55 50 50 Oral 1140 1000 1200 750 Output: Urine 190 155 0 Other: # Bowel Movements 0 0 1 Estimated Stool Amount Medium # Voids 0 0 - Review of Systems Constitutional Symptoms: Negative: Fever, Other - [place] Dermatology: Positive: Other - Wound to the left lateral foot Endocrinology: Positive: Diabetes Mellitus Objective Active Medications: Acetaminophen (Tylenol Tab*) 650 mg PO Q4H PRN Reason: FEVER/PAIN Aspirin (Aspirin 81 Mg Chew Tab*) 81 mg PO DAILY [facility] Atorvastatin Calcium (Lipitor*) 80 mg PO QAM [facility] Calcium Carbonate (Tums*) 500 mg PO Q4H PRN Reason: INDIGESTION Dextrose (D50w Syringe 50 Ml*) 12.5 gm IV PUSH .FOR FS < 60 - SS PRN Reason: FS < 60 Gemfibrozil (Lopid Tab*) 600 mg PO BID [facility] Heparin Sodium (Porcine) (Heparin Vial(*)) 5,000 units SUBCUT Q8HR [facility] Clindamycin HCl/Dextrose (Cleocin 600 Mg Ivpremix(*) Sdv) 600 mg in 50 mls @ 100 mls/hr IV Q8H [facility] Insulin Human Lispro (Humalog*) 0 units SUBCUT AC [facility]; Protocol Metoprolol Succinate (Toprol Xl Tab*) 25 mg PO QAM [facility] Morphine Sulfate (Morphine Inj (Syringe))*) 2 mg IV Q6H PRN Reason: PAIN - MODERATE TO SEVERE Oxycodone/Acetaminophen (Percocet 5/325 Tab*) 1 tab PO Q4H PRN Reason: PAIN - MODERATE Pantoprazole Sodium (Protonix Tab*) 40 mg PO DAILY [facility] Sevelamer Carbonate (Renvela Tab*) 1,600 mg PO 0845,1245,1745 [facility] Oxygen Devices in Use Now: None Appearance: NAD, sitting up in bed Ears/Nose/Mouth/Throat: Mucous Membranes Moist Respiratory: Symmetrical Chest Expansion and Respiratory Effort Skin: - - See skin note below Neurological: Alert and Oriented x 3 Nutrition: Taking PO's Result Diagrams: 01/03/19 08:24 01/03/19 08:24 Microbiology and Other Data: Microbiology 01/03/19 10:13 Gram Stain - Final Foot Left Wound Culture - Preliminary No Growth Day 1 12/29/18 14:15 Aerobic Blood Culture - Final Blood Venous No Growth Day 5 Anaerobic Blood Culture - Final No Growth Day 5 12/29/18 16:00 Gram Stain - Final Foot Left Wound Culture - Final Staphylococcus Aureus Normal Nadja 12/29/18 16:00 Skin and Soft Tissue MRSA/MSSA (PCR - Final Foot Left Mrsa Negative S.aureus Negative Gram Stain - Final Wound Culture - Final Normal Nadja Diagnostic Imagin02/11/18 - VL ANK/BRACHIAL INDICES: Ankle-brachial indices: Right: Value (SBP) Index Brachial: 164 Posterior tibialis: Noncompressible Dorsalis pedis: Noncompressible Digit: 56 0.33 Left: Value (SBP) Index Brachial: 172 Posterior tibialis: Noncompressible Dorsalis pedis: Noncompressible Digit: 47 0.27 Doppler waveforms (acquired at rest): In the interrogated lower extremity arteries, Doppler waveforms are monophasic and the bilateral lower extremities with notably reduced amplitude at the right posterior tibial artery. Volume pulse recordings (acquired at rest): Volume pulse recordings measures 17 mm on the right and 35 mm on the left, a significant discrepancy indicating relatively decreased flow in the right ankle relative to the left. IMPRESSION: 1. Noncompressibility of the pedal arteries is consistent with advanced calcified atherosclerosis. 2. Values measured at the bilateral digits are consistent with rest pain. 3. The arterial waveforms measured at the bilateral feet and ankles are greatly attenuated and arranged indicating arterial insufficiency. 02/11/181933 - CTA ABD AORTA & RUNOFF: IMPRESSION: ABDOMINAL AORTA: #. Normal diameter abdominal aorta without evidence for dissection or hemodynamic significant stenosis. RIGHT ILIAC and LOWER EXTREMITY ARTERIES: #. 80% short segment stenosis at the RIGHT common iliac artery. #. 70% stenosis at the RIGHT superficial femoral artery. #. 50% stenosis at the RIGHT SFA at the adductor canal. #. Marked high-grade stenosis at the distal RIGHT popliteal artery. #. Suggestion of limited three-vessel runoff to the RIGHT ankle. LEFT ILIAC and LOWER EXTREMITY ARTERIES: #. Up to 60% stenosis at the mid segment of the LEFT superficial femoral artery. #. Up to 50% short segment stenosis at the infrageniculate LEFT popliteal artery. #. Suggestion of limited three-vessel runoff to the LEFT ankle. 12/29/181631 - MRI LOWER EXTREMITY LEFT W/O IMPRESSION: 1. Motion artifact is problematic on several sequences. 2. 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 No acute fracture. 3. Detail of the great toe is limited. There appears to be infiltrative change suggesting cellulitis distally. There is not a definite visualized abscess, nor is there current convincing evidence for osteomyelitis. Skin Deviation Note - Skin Deviation Findings Left lateral foot - There is a small area of black eschar, measures 0.7 cm x 0.8 cm. This is surrounded by dark erythema, the area measures 3.5 cm x 5 cm. There is purulent drainage from a small open area at about 1 o'clock from the area of eschar. The area is warm to touch. There is also pain with palpation of the area of erythema. Left heel - There is a wound, measures 0.5 cm x 0.8 cm x 0.2 cm. The wound base is pink granulation tissue. The surrounding skin is intact, without erythema. No drainage noted from the area. Assessment/Plan: Mr. 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 He presented to the hospital with a known wound to his left lateral foot and left heel. He is followed by the [facility]ound [facility]. 1. Left lateral foot wound. Suspect secondary to internal pressure from the remaining 5th metatarsal head. ABIs from 01/2018 - "Noncompressibility of the pedal arteries is consistent with advanced calcified atherosclerosis, Values measured at the bilateral digits are consistent with rest pain, the arterial waveforms measured at the bilateral feet and ankles are greatly attenuated and arranged indicating arterial insufficiency". CTA runoff 01/2018 - "Left iliac and lower extremity arteries; Up to 60% stenosis at the mid segment of the LEFT superficial femoral artery, Up to 50% short segment stenosis at the infrageniculate LEFT popliteal artery". 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 No acute fracture. Detail of the great toe is limited. There appears to be infiltrative change suggesting cellulitis distally. There is not a definite visualized abscess, nor is there current convincing evidence for osteomyelitis". Recommend applying silver calcium alginate to the wound followed by gauze and rolled gauze, change every other day. He should continue to followup with the wound clinic outpatient after discharge. 2. Left heel wound, stage 2 pressure injury. Recommend applying silver calcium alginate to the wound followed by gauze and rolled gauze, change every other day. Keep the heel elevated off the bed. 3. Left foot cellulitis. Management per ID and primary medicine team. 4. DM2. HgA1C was 6.3 in 08/2018. Maintain good glycemic control to allow for wound healing. 5. Morbid obesity. BMI 30.6 6. Diet. Consistent carb, renal diet. 7. Code Status. Full Code Status. 8. Disposition. Inpatient, disposition per primary medicine team. TIME SPENT: Time for this wound consultation was 30 minutes and 20 minutes was spent with the patient discussing past medical history; assessing, measuring, and photographing the wounds; and removing and reapplying the dressing. Wound Problem/Plan Is Patient a Wound Clinic Patient: Yes - Follows with Dr. Daily Current Treatment: Silver calcium alginate applied every other day, gauze and rolled gauze. Attending: Love Aguiar
--- NOTE | 2019-01-04 16:52 | PN ---
Subjective Date of Service: 01/04/19 Interval History: Patient has pain in LT forefoot. He is unhappy about facing another surgery on LT foot. Denies SOB, chest pain. Is eating OK. Family History: Unchanged from Admission Social History: Unchanged from Admission Past Medical History: Unchanged from Admission Objective Active Medications: Acetaminophen (Tylenol Tab*) 650 mg PO Q4H PRN PRN Reason: FEVER/PAIN Aspirin (Aspirin 81 Mg Chew Tab*) 81 mg PO DAILY [facility] Last Admin: 01/04/19 08:17 Dose: 81 mg Atorvastatin Calcium (Lipitor*) 80 mg PO QAM [facility] Last Admin: 01/04/19 08:17 Dose: 80 mg Calcium Carbonate (Tums*) 500 mg PO Q4H PRN PRN Reason: INDIGESTION Last Admin: 12/30/18 14:18 Dose: 500 mg Dextrose (D50w Syringe 50 Ml*) 12.5 gm IV PUSH .FOR FS < 60 - SS PRN PRN Reason: FS < 60 Gemfibrozil (Lopid Tab*) 600 mg PO BID [facility] Last Admin: 01/04/19 08:26 Dose: 600 mg Heparin Sodium (Porcine) (Heparin Vial(*)) 5,000 units SUBCUT Q8HR [facility] Last Admin: 01/04/19 15:34 Dose: 5,000 units Clindamycin HCl/Dextrose (Cleocin 600 Mg Ivpremix(*) Sdv) 600 mg in 50 mls @ 100 mls/hr IV Q8H [facility] Last Admin: 01/04/19 10:03 Dose: 100 mls/hr Insulin Human Lispro (Humalog*) 0 units SUBCUT [facility]; Protocol Last Admin: 01/04/19 12:02 Dose: Not Given Metoprolol Succinate (Toprol Xl Tab*) 25 mg PO [facility] Last Admin: 01/04/19 08:17 Dose: 25 mg Morphine Sulfate (Morphine Inj (Syringe))*) 2 mg IV Q6H PRN PRN Reason: PAIN - MODERATE TO SEVERE Last Admin: 01/02/19 00:00 Dose: 2 mg Oxycodone/Acetaminophen (Percocet 5/325 Tab*) 1 tab PO Q4H PRN PRN Reason: PAIN - MODERATE Last Admin: 01/04/19 05:11 Dose: 1 tab Pantoprazole Sodium (Protonix Tab*) 40 mg PO DAILY [facility] Last Admin: 01/04/19 08:17 Dose: 40 mg Sevelamer Carbonate (Renvela Tab*) 1,600 mg PO 0845,1245,1745 [facility] Last Admin: 01/04/19 13:44 Dose: 1,600 mg Selected Entries 01/04/19 01/04/19 01/04/19 07:15 07:30 07:38 Temperature 36.1 C Pulse Rate 54 Respiratory 18 18 18 Rate Blood Pressure 130/52 (mmHg) O2 Sat by Pulse 97 Oximetry Oxygen Devices in Use Now: None Appearance: alert, no distress Eyes: No Scleral Icterus Ears/Nose/Mouth/Throat: NL Teeth, Lips, Gums Neck: NL Appearance and Movements; NL JVP Respiratory: Symmetrical Chest Expansion and Respiratory Effort, Clear to Auscultation Cardiovascular: NL Sounds; No Murmurs; No JVD, RRR Abdominal: NL Sounds; No Tenderness; No Distention Lymphatic: No Cervical Adenopathy Skin: - - LT forefoot in bandage, LT great toe intact, other 4 digits previously amputated Neurological: Alert and Oriented x 3 Lines/Tubes/Other Access: Clean, Dry and Intact Peripheral IV Nutrition: Taking PO's Result Diagrams: 01/03/19 08:24 01/03/19 08:24 Microbiology and Other Data: Microbiology 12/29/18 16:00 Skin and Soft Tissue MRSA/MSSA (PCR - Final Foot Left Mrsa Negative S.aureus Negative Gram Stain - Final Wound Culture - Preliminary No Growth Day 1 12/29/18 16:00 Gram Stain - Final Foot Left Assess/Plan/Problems-Billing Mr El is a 73 yo M with a h/o ESRD on HD and chronic wounds followed by the wound clinic who was sent to the ER for evaluation of cellulitis of the L foot. - Patient Problems (1) Subacute osteomyelitis, left ankle and foot Current Visit: Yes Status: Acute Priority: High Code(s): M86.272 - SUBACUTE OSTEOMYELITIS, LEFT ANKLE AND FOOT SNOMED Code(s): 32599228 Comment: -Appreciate ID consult, will continue clindamycin -Dr. Matias will debride/explore in OR on , further plans after that occurs (2) ESRD (end stage renal disease) Current Visit: Yes Status: Acute Priority: Medium Code(s): N18.6 - END STAGE RENAL DISEASE SNOMED Code(s): 97242024 Comment: -Continue MWF dialysis. -Dr. Martínez consult appreciated. (3) Type 2 diabetes mellitus Current Visit: Yes Status: Chronic Priority: Medium Comment: -Continue lispro sliding scale. Using less insulin here than at home -Adequate glycemic control (4) DVT prophylaxis Current Visit: Yes Status: Acute Priority: Low Code(s): JDW4905 - SNOMED Code(s): 384160348 Comment: SQ heparin Status and Disposition: inpatient
[2019-01-04] MEDS: Morphine INJ* 2 MG/ML 1 ML SYRINGE (TWO MG - NEW SYRINGE VERSION) IV PRN (18:07)
[2019-01-05] MEDS: oxyCODONE/Acetamin 5/325 MG* TAB PO PRN (00:24)
[2019-01-05] MEDS: Clindamycin 600 MG IVPREMIX(* 600 MG/50 ML SDV IV SCH ×4 (02:31→22:39)
[2019-01-05] MEDS: Heparin VIAL(*) 5000 UNITS/ML VIAL (FIVE THOUSAND) SUBCUT SCH ×3 (05:51→22:43)
[2019-01-05] MEDS: Gemfibrozil TAB* 600 MG PO SCH ×2 (07:58→22:39)
[2019-01-05] MEDS: Morphine INJ* 2 MG/ML 1 ML SYRINGE (TWO MG - NEW SYRINGE VERSION) IV PRN (07:59)
[2019-01-05] MEDS: Insulin LISPRO* 1 UNITS UNIT SUBCUT SCH ×3 (08:03→17:26)
[2019-01-05] MEDS: Sevelamer TAB* 800 MG PO SCH ×3 (09:12→17:32)
--- NOTE | 2019-01-05 09:23 | PN ---
Progress Note - Progress Note Date of Service: 01/05/19 Note: I saw Rickie this morning. He reports no change in symptoms. Overall the foot looks good except for the base of the fifth metatarsal which still has some swelling and erythema around the ulcer. No active drainage. The heel ulcer continues to look quite good. Temp Pulse Resp BP Pulse Ox 98.1 F 57 12 124/52 97 01/05/19 02:13 01/05/19 02:13 01/05/19 07:59 01/05/19 02:13 01/05/19 02:13 Even though the foot overall looks quite good, there has not been significant improvement at the lateral midfoot at the area of the base of the fifth metatarsal. I did discuss with Rickie that given the lack of improvement in this area, I would recommend we do an irrigation and debridement, and excision of the fifth metatarsal-base. He was in agreement with this plan. We did review the risks at length. We will move forward with surgery tomorrow. Jesu Fraire MD
[2019-01-05] MEDS ORDERED: Heparin DIALYSIS ONLY(*) 1,000 UNITS/ML VIAL DIALYSIS ONE (12:00)
[2019-01-05] MEDS: Aspirin 81 mg CHEW TAB* 81 MG TAB.CHEW PO SCH (15:31)
[2019-01-05] MEDS: Metoprolol Succinate XL TAB* 25 MG PO SCH (15:31)
[2019-01-05] MEDS: Atorvastatin* 80 MG TAB PO SCH (15:31)
[2019-01-05] MEDS: Pantoprazole TAB * 40 MG TAB PO SCH (15:31)
[2019-01-05] MEDS: HYDROcodone/ACETAMIN 5-325 MG* 1 TAB PO PRN ×2 (16:13→22:38)
--- NOTE | 2019-01-05 17:28 | PN ---
Subjective Date of Service: 01/05/19 Interval History: Patient has less pain in LT foot today. He is aware that surgery is planned tomorrow. He reports some coughing and belching after trying to eat mac&cheese this evening. His belly feels distended. Family History: Unchanged from Admission Social History: Unchanged from Admission Past Medical History: Unchanged from Admission Objective Active Medications: Acetaminophen (Tylenol Tab*) 650 mg PO Q4H PRN PRN Reason: FEVER/PAIN Hydrocodone Bitart/Acetaminophen ([place] 5-325 Tab*) 2 tab PO Q6H PRN PRN Reason: PAIN Last Admin: 01/05/19 16:13 Dose: 2 tab Aspirin (Aspirin 81 Mg Chew Tab*) 81 mg PO DAILY [facility] Last Admin: 01/05/19 15:31 Dose: 81 mg Atorvastatin Calcium (Lipitor*) 80 mg PO QAM [facility] Last Admin: 01/05/19 15:31 Dose: 80 mg Calcium Carbonate (Tums*) 500 mg PO Q4H PRN PRN Reason: INDIGESTION Last Admin: 12/30/18 14:18 Dose: 500 mg Dextrose (D50w Syringe 50 Ml*) 12.5 gm IV PUSH .FOR FS < 60 - SS PRN PRN Reason: FS < 60 Gemfibrozil (Lopid Tab*) 600 mg PO BID [facility] Last Admin: 01/05/19 07:58 Dose: 600 mg Heparin Sodium (Porcine) (Heparin Vial(*)) 5,000 units SUBCUT Q8HR [facility] Last Admin: 01/05/19 15:40 Dose: 5,000 units Clindamycin HCl/Dextrose (Cleocin 600 Mg Ivpremix(*) Sdv) 600 mg in 50 mls @ 100 mls/hr IV 0630,1430,2230 [facility] Last Admin: 01/05/19 15:34 Dose: 100 mls/hr Insulin Human Lispro (Humalog*) 0 units SUBCUT AC [facility]; Protocol Last Admin: 01/05/19 17:26 Dose: Not Given Metoprolol Succinate (Toprol Xl Tab*) 25 mg PO QAM [facility] Last Admin: 01/05/19 15:31 Dose: 25 mg Pantoprazole Sodium (Protonix Tab*) 40 mg PO DAILY [facility] Last Admin: 01/05/19 15:31 Dose: 40 mg Sevelamer Carbonate (Renvela Tab*) 1,600 mg PO 0845,1245,1745 [facility] Last Admin: 01/05/19 13:54 Dose: Not Given Vital Signs - 8 hr 01/05/19 01/05/19 16:13 17:07 Temperature 36.6 C Pulse Rate 64 Respiratory 20 20 Rate Blood Pressure 114/52 (mmHg) O2 Sat by Pulse 99 Oximetry Oxygen Devices in Use Now: None Appearance: alert, no distress Ears/Nose/Mouth/Throat: NL Teeth, Lips, Gums, Clear Oropharnyx Neck: No Thyroid Enlargement, Masses Respiratory: Symmetrical Chest Expansion and Respiratory Effort, Clear to Auscultation Cardiovascular: NL Sounds; No Murmurs; No JVD Abdominal: No Hepatosplenomegaly, - - distension present Lymphatic: No Cervical Adenopathy Neurological: Alert and Oriented x 3 Lines/Tubes/Other Access: Clean, Dry and Intact Peripheral IV Nutrition: Taking PO's Result Diagrams: 01/03/19 08:24 01/03/19 08:24 Additional Lab and Data: Laboratory Tests 01/04/19 01/05/19 01/05/19 16:50 07:51 12:08 POC Glucose (mg/dL) 108 H 84 85 01/05/19 17:03 POC Glucose (mg/dL) 118 H Microbiology and Other Data: Microbiology 01/03/19 10:13 Foot Left Gram Stain - Final 12/29/18 16:00 Foot Left Skin and Soft Tissue MRSA/MSSA (PCR - Final 12/29/18 16:00 Foot Left Wound Culture - Final Mrsa Negative S.aureus Negative Normal Nadja 12/29/18 16:00 Foot Left Gram Stain - Final 12/29/18 16:00 Foot Left Wound Culture - Final Staphylococcus Aureus Normal Nadja 12/29/18 14:15 Blood Venous Aerobic Blood Culture - Final 12/29/18 14:15 Blood Venous Anaerobic Blood Culture - Final No Growth Day 5 No Growth Day 5 01/03/19 10:13 Foot Left Wound Culture - Preliminary Staphylococcus Aureus Assess/Plan/Problems-Billing Mr El is a 73 yo M with a h/o ESRD on HD and chronic wounds followed by the wound clinic who was sent to the ER for evaluation of cellulitis of the L foot. - Patient Problems (1) Subacute osteomyelitis, left ankle and foot Current Visit: Yes Status: Acute Priority: High Code(s): M86.272 - SUBACUTE OSTEOMYELITIS, LEFT ANKLE AND FOOT SNOMED Code(s): 24667150 Comment: -Appreciate ID and wound consult, will continue clindamycin -Dr. Matias will debride/explore in OR tomorrow, further plans after that occurs (2) ESRD (end stage renal disease) Current Visit: Yes Status: Acute Priority: Medium Code(s): N18.6 - END STAGE RENAL DISEASE SNOMED Code(s): 24433377 Comment: -Continue MWF dialysis. -Dr. Martínez consult appreciated. (3) Type 2 diabetes mellitus Current Visit: Yes Status: Chronic Priority: Medium Comment: -Continue lispro sliding scale. -Adequate glycemic control (4) DVT prophylaxis Current Visit: Yes Status: Acute Priority: Low Code(s): HCS4292 - SNOMED Code(s): 390097064 Comment: SQ heparin Status and Disposition: inpatient
--- NOTE | 2019-01-05 19:18 | PN ---
PROGRESS NOTE/DIALYSIS NOTE: DATE OF SERVICE: 01/05/19 SUBJECTIVE: The patient seen and examined during dialysis and the patient is tolerating the procedure well. Denies any complaints. Reports some nausea and regurgitation of food that he has had for a while as an outpatient as well. Discussed consideration of EGD and further GI evaluation as warranted if he has persistent symptoms either in the hospital or as an outpatient. Vitals and labs have been reviewed. HD orders discussed with the dialysis nurse. PHYSICAL EXAM: HEENT: NC/AT. Heart: S1, S2 present. Regular rate and rhythm. Lungs: Decreased breath sounds bilaterally. Abdomen: Soft. Extremities: No edema. Dressing in place. Neuro: Alert. ASSESSMENT AND PLAN: The patient is planned for OR debridement tomorrow and we will tentatively place the patient on the HD schedule for Thursday. [id number]/CPS #: [id number] MTDD
[2019-01-06] MEDS: Heparin VIAL(*) 5000 UNITS/ML VIAL (FIVE THOUSAND) SUBCUT SCH ×3 (05:57→20:58)
[2019-01-06] MEDS: Clindamycin 600 MG IVPREMIX(* 600 MG/50 ML SDV IV SCH ×3 (06:05→22:12)
[2019-01-06 06:38] LABS: ABS Basophils 0.1 10^3/ul (0-0.2); ABS Eosinophils 0.2 10^3/ul (0-0.6); ABS Lymphocytes 0.8 10^3/ul (1.0-4.8); ABS Monocytes 0.6 10^3/ul (0-0.8); ABS Neutrophils 5.1 10^3/ul (1.5-7.7); Eosinophil % 2.4 %; Hematocrit 31 % (42-52); Hemoglobin 10.3 g/dL (14.0-18.0); Lymphocyte % 11.6 %; Mean Corpuscular HGB Conc 34 g/dL (31-36); Mean Corpuscular Hemoglobin 31 pg (27-31); Mean Corpuscular Volume 92 fL (80-94); Mean Platelet Volume 7.2 fL (7.4-10.4); Platelet Count 222 10^3/uL (150-450); Red Blood Count 3.33 10^6 /uL (4.18-5.48); Red Cell Distribution Width 15 % (10-15); White Blood Count 6.7 10^3/uL (3.5-10.8)
[2019-01-06 06:45] LABS: INR 1.27 (0.82-1.09)
[2019-01-06 07:01] LABS: BUN/Creatinine Ratio 7.8 (8-20); Calcium 8.3 mg/dL (8.6-10.3); EGFR African American 15.6 (>60); EGFR Non-African American 12.9 (>60); Potassium 4.3 mmol/L (3.5-5.0)
[2019-01-06] MEDS: Insulin LISPRO* 1 UNITS UNIT SUBCUT SCH ×3 (07:43→17:12)
[2019-01-06] MEDS: Aspirin 81 mg CHEW TAB* 81 MG TAB.CHEW PO SCH (07:44)
[2019-01-06] MEDS: Gemfibrozil TAB* 600 MG PO SCH ×2 (07:44→20:57)
[2019-01-06] MEDS: Sevelamer TAB* 800 MG PO SCH ×4 (07:44→17:48)
[2019-01-06] MEDS: Atorvastatin* 80 MG TAB PO SCH (07:44)
[2019-01-06] MEDS: Pantoprazole TAB * 40 MG TAB PO SCH (07:44)
[2019-01-06] MEDS: Metoprolol Succinate XL TAB* 25 MG PO SCH (08:19)
[2019-01-06] MEDS ORDERED: Lidocaine 2% PF * 5 ML VIAL ONE (10:05)
[2019-01-06] MEDS ORDERED: Propofol* 10 MG/ML 20 ML BTL ONE (10:05)
[2019-01-06] MEDS ORDERED: Midazolam* 1 MG/ML 2 ML VIAL (2 MG) ONE (10:05)
[2019-01-06] MEDS ORDERED: fentaNYL* 50 MCG/ML 2 ML VIAL (100 MCG VIAL) ONE (10:05)
[2019-01-06] MEDS ORDERED: Bupivacaine 0.5%* 50 ML VIAL ONE (10:48)
[2019-01-06] MEDS ORDERED: Lidocaine 2% PF* 10 ML AMP ONE (10:48)
[2019-01-06] MEDS ORDERED: Buffered Lidocaine 1% SYRIN* 1 ML/SYRINGE INTRADERM ONE (11:22)
[2019-01-06] MEDS ORDERED: Etomidate* 2 MG/ML 10 ML VIAL ONE (11:27)
[2019-01-06] MEDS ORDERED: Succinylcholine* 20 MG/ML 10 ML VIAL ONE (11:27)
[2019-01-06] MEDS ORDERED: EPHEDrine (Pressors)* 50 MG/ML VIAL ONE (11:57)
[2019-01-06] MEDS ORDERED: NS 0.45% 1000 ML BAG* 1,000 ML IV SCH (12:00)
[2019-01-06] MEDS ORDERED: Naloxone* 0.4 MG/ML 1 ML VIAL IV PRN (12:12)
[2019-01-06] MEDS ORDERED: Ondansetron INJ* 2 MG/ML VIAL IV PRN (12:12)
[2019-01-06] MEDS ORDERED: fentaNYL* 50 MCG/ML 2 ML VIAL (100 MCG VIAL) IV PRN (12:12)
[2019-01-06] MEDS ORDERED: Phenylephrine 40 MCG/ML SYRINGE ONE (12:17)
--- NOTE | 2019-01-06 17:29 | PN ---
Subjective Date of Service: 01/06/19 Interval History: Patient went to OR earlier today, had metatarsal partially excised LT foot. He feels he was told a tube was being put into his chest. He does not agree that this was an ET tube that temporarily present. He wants to know results of surgery. Family History: Unchanged from Admission Social History: Unchanged from Admission Past Medical History: Unchanged from Admission Objective Active Medications: Acetaminophen (Tylenol Tab*) 650 mg PO Q4H PRN PRN Reason: FEVER/PAIN Hydrocodone Bitart/Acetaminophen ([place] 5-325 Tab*) 2 tab PO Q6H PRN PRN Reason: PAIN Last Admin: 01/05/19 22:38 Dose: 2 tab Aspirin (Aspirin 81 Mg Chew Tab*) 81 mg PO DAILY [facility] Last Admin: 01/06/19 07:44 Dose: Not Given Atorvastatin Calcium (Lipitor*) 80 mg PO QAM [facility] Last Admin: 01/06/19 07:44 Dose: Not Given Calcium Carbonate (Tums*) 500 mg PO Q4H PRN PRN Reason: INDIGESTION Last Admin: 12/30/18 14:18 Dose: 500 mg Dextrose (D50w Syringe 50 Ml*) 12.5 gm IV PUSH .FOR FS < 60 - SS PRN PRN Reason: FS < 60 Gemfibrozil (Lopid Tab*) 600 mg PO BID [facility] Last Admin: 01/06/19 07:44 Dose: Not Given Heparin Sodium (Porcine) (Heparin Vial(*)) 5,000 units SUBCUT Q8HR [facility] Last Admin: 01/06/19 13:50 Dose: Not Given Clindamycin HCl/Dextrose (Cleocin 600 Mg Ivpremix(*) Sdv) 600 mg in 50 mls @ 100 mls/hr IV 0630,1430,2230 [facility] Last Admin: 01/06/19 16:26 Dose: Not Given Sodium Chloride (Ns 0.45% 1000 Ml Bag*) 1,000 mls @ 0 mls/hr IV KVO [facility] Insulin Human Lispro (Humalog*) 0 units SUBCUT AC [facility]; Protocol Last Admin: 01/06/19 17:12 Dose: Not Given Metoprolol Succinate (Toprol Xl Tab*) 25 mg PO QAM [facility] Last Admin: 01/06/19 08:19 Dose: 25 mg Pantoprazole Sodium (Protonix Tab*) 40 mg PO DAILY [facility] Last Admin: 01/06/19 07:44 Dose: Not Given Sevelamer Carbonate (Renvela Tab*) 1,600 mg PO 0819,8335,1745 [facility] Last Admin: 01/06/19 17:12 Dose: Not Given Vital Signs - 8 hr 01/06/19 01/06/19 01/06/19 10:45 12:39 12:45 Temperature 36.5 C 36.1 C Pulse Rate 49 60 60 Respiratory 14 13 20 Rate Blood Pressure 103/55 113/55 111/55 (mmHg) O2 Sat by Pulse 96 96 89 Oximetry 01/06/19 01/06/19 01/06/19 12:50 12:55 13:00 Temperature Pulse Rate 61 61 63 Respiratory 18 19 13 Rate Blood Pressure 118/56 123/56 119/55 (mmHg) O2 Sat by Pulse 95 94 94 Oximetry 01/06/19 01/06/19 01/06/19 13:05 13:10 13:15 Temperature Pulse Rate 63 63 63 Respiratory 16 16 18 Rate Blood Pressure 121/77 125/57 119/60 (mmHg) O2 Sat by Pulse 95 95 96 Oximetry Oxygen Devices in Use Now: Nasal Cannula Appearance: somnolent, but conversant Ears/Nose/Mouth/Throat: Clear Oropharnyx Respiratory: Clear to Auscultation Cardiovascular: NL Sounds; No Murmurs; No JVD Abdominal: NL Sounds; No Tenderness; No Distention Extremities: - - LT foot in bandage, great toe well perfused Lines/Tubes/Other Access: Clean, Dry and Intact Peripheral IV Nutrition: Taking PO's Result Diagrams: 01/06/19 06:14 01/06/19 06:14 Additional Lab and Data: Laboratory Tests 01/06/19 01/06/19 01/06/19 06:14 07:26 11:07 Glucose 127 H POC Glucose (mg/dL) 143 H 137 H 01/06/19 16:55 Glucose POC Glucose (mg/dL) 125 H Assess/Plan/Problems-Billing Mr El is a 73 yo M with a h/o ESRD on HD and chronic wounds followed by the wound clinic who was sent to the ER for evaluation of cellulitis of the L foot. - Patient Problems (1) Subacute osteomyelitis, left ankle and foot Current Visit: Yes Status: Acute Priority: High Code(s): M86.272 - SUBACUTE OSTEOMYELITIS, LEFT ANKLE AND FOOT SNOMED Code(s): 43822027 Comment: -Appreciate ID and wound consult, will continue clindamycin until new bone/operative culture data comes back. -Dr. Matias will debrided in OR today, will discuss w/ ortho when available. (2) ESRD (end stage renal disease) Current Visit: Yes Status: Acute Priority: Medium Code(s): N18.6 - END STAGE RENAL DISEASE SNOMED Code(s): 94875196 Comment: -Continue MWF dialysis. -Dr. Martínez consult appreciated. (3) Type 2 diabetes mellitus Current Visit: Yes Status: Chronic Priority: Medium Comment: -Diabetes under good control. -Continue lispro sliding scale. (4) DVT prophylaxis Current Visit: Yes Status: Acute Priority: Low Code(s): WBE2406 - SNOMED Code(s): 021959435 Comment: SQ heparin Status and Disposition: inpatient
--- NOTE | 2019-01-06 18:29 | OP ---
Operative Report - Blank - Operative Report Date of Operation: 01/06/19 Note: PATIENT: Rickie El DATE OF : 1945 DATE OF SURGERY: 01/06/2019 SURGEON: Jesu Fraire MD PRESSURE TANK OPERATOR: LEÓN Oliveros, whos assistance was necessary for positioning, retraction, help with instrumentation, and closure. ANESTHESIOLOGIST: Dr. Ruiz PREOPERATIVE DIAGNOSIS: Left foot ulcer with infection and likely 5th metatarsal base osteomyelitis. POSTOPERATIVE DIAGNOSIS: Left foot ulcer with infection and likely 5th metatarsal base osteomyelitis. OPERATION: 1. Left foot irrigation and debridement 2. Excision of left 5th metatarsal base ANESTHESIA: General IMPLANTS: none TOURNIQUET TIME: Less than 1 hour with an ankle esmarch tourniquet SPECIMENS: 5th metatarsal base to pathology. Culture swabs to micro. ESTIMATED BLOOD LOSS: minimal COMPLICATIONS: none STATUS: Stable from the operating room to the recovery room and then back to the hospital floor. 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 He was admitted with cellulitis which largely resolved on antibiotics except at the 5th metatarsal base where it remained swollen and erythematous around an ulcer. Both operative and non- operative treatment alternatives were reviewed. Further, the nature and risks of surgery were reviewed in careful detail. Our discussions regarding the risks of surgery included, but were not limited to, persistent or worsening infection , wound problems, persistent symptoms, blood clot, need for further surgery, failure of the surgery, and even the remote chance of catastrophic complication , including loss of limb. DESCRIPTION OF PROCEDURE: The patient was seen in the preoperative holding unit and informed written consent was obtained. The appropriate extremity was marked. The patient was then brought to the operating room and carefully positioned on the operating room table. Anesthesia was induced. All bony prominences were padded with great care. A chlorhexidine based pre-scrub was performed followed by a chloraprep prep and drape in standard sterile fashion. A surgical safety pause was then conducted in which we confirmed the appropriate patient, extremity, planned procedure, availability of equipment, indication and administration of prophylactic antibiotics, and DVT prophylaxis in the form of a compression boot on the non-surgical extremity. I began by placing an ankle Esmarch tourniquet. I used his prior surgical incision at the lateral midfoot and extended this proximally. I ellipsed out the ulcer. Upon entering the foot, claudia purulence was encountered. Culture swabs were taken and sent to microbiology. I then identified the fifth metatarsal base and used a 15 blade scalpel to sharply release the soft tissue around it, and excised the fifth metatarsal base. This was then sent to pathology. I then used a 15 blade scalpel to sharply debride any infected and nonviable appearing tissue. This included the skin, subcutaneous, muscular, and periosteal tissue. The wound was then copiously irrigated with cystoscopy tubing and sterile saline. A Laura drain was placed and the wound was closed in a layered fashion utilizing 0 PDS, 3-0 Monocryl, and 2-0 Prolene. Sterile dressing was then applied. The patient was then awakened from anesthesia and transferred to the recovery room in stable condition. There were no complications. All needle and sponge counts were correct at the end of the case. ATTESTATION: I attest I was present and scrubbed and performed the critical portions of the procedure myself. POSTOPERATIVE PLAN: Continue antibiotics per infectious diseases. Nonweightbearing in the left lower extremity.
[2019-01-06] MEDS: HYDROcodone/ACETAMIN 5-325 MG* 1 TAB PO PRN (20:56)
[2019-01-06] MEDS ORDERED: Magnesium Hydroxide LIQ* 30 ML UDC PO PRN (21:25)
[2019-01-06] MEDS ORDERED: Polyethylene Glycol 3350* 17 GM PACKET PO PRN (21:25)
[2019-01-07] MEDS: HYDROcodone/ACETAMIN 5-325 MG* 1 TAB PO PRN ×4 (03:10→23:33)
[2019-01-07] MEDS ORDERED: oxyCODONE TAB* 5 MG TAB PO ONE (05:21)
[2019-01-07] MEDS: Clindamycin 600 MG IVPREMIX(* 600 MG/50 ML SDV IV SCH (05:30)
[2019-01-07] MEDS: Heparin VIAL(*) 5000 UNITS/ML VIAL (FIVE THOUSAND) SUBCUT SCH ×3 (05:31→20:28)
[2019-01-07] MEDS: Insulin LISPRO* 1 UNITS UNIT SUBCUT SCH ×3 (07:39→16:52)
[2019-01-07] MEDS: Metoprolol Succinate XL TAB* 25 MG PO SCH (08:00)
[2019-01-07] MEDS: Pantoprazole TAB * 40 MG TAB PO SCH (08:08)
[2019-01-07] MEDS: Aspirin 81 mg CHEW TAB* 81 MG TAB.CHEW PO SCH (08:08)
[2019-01-07] MEDS: Gemfibrozil TAB* 600 MG PO SCH ×2 (08:08→20:27)
[2019-01-07] MEDS: Atorvastatin* 80 MG TAB PO SCH (08:08)
[2019-01-07] MEDS: Docusate CAP* 100 MG PO SCH ×3 (08:08→20:27)
[2019-01-07] MEDS: Sevelamer TAB* 800 MG PO SCH ×3 (09:48→17:28)
[2019-01-07] MEDS ORDERED: EPOETIN ALFA-EPBX * 3,000 UNIT/ML VIAL IV ONE (10:00)
[2019-01-07] MEDS ORDERED: Heparin DIALYSIS ONLY(*) 1,000 UNITS/ML VIAL DIALYSIS ONE (10:00)
--- NOTE | 2019-01-07 12:25 | PN ---
Progress Note - Progress Note Date of Service: 01/07/19 SOAP: Subjective: [] Patient seen at bedside, finishing dialysis. States left foot hurts, due for his pain medication soon. Objective: [] Vital Signs Temp 97.6 F 01/07/19 07:26 Pulse 56 01/07/19 07:26 Resp 16 01/07/19 09:48 BP 111/47 01/07/19 07:26 Pulse Ox 98 01/07/19 07:26 Intake & Output 01/06/19 01/07/19 01/07/19 18:59 06:59 18:59 Intake Total 940 170 0 Output Total 150 Balance 940 20 0 Weight 234 lb 15.992 oz 224 lb 8 oz 221 lb 8 oz Intake: IV Fluids 700 40 LR 700 NS (0.9%) 40 IVPB 130 Clindamycin 130 Oral 240 0 0 Output: Urine 150 Other: # Bowel Movements 0 # Voids 0 Laboratory Results - last 24 hr 01/06/19 01/07/19 01/07/19 16:55 07:36 12:02 POC Glucose (mg/dL) 125 H 122 H 93 Microbiology 01/06/19 12:01 Anaerobic Culture - Preliminary Wound No Growth Day 1 01/06/19 12:01 Skin and Soft Tissue MRSA/MSSA (PCR - Final Foot Left Mrsa Negative S.aureus Positive Gram Stain - Final Wound Culture - Preliminary No Growth Day 1 01/03/19 10:13 Gram Stain - Final Foot Left Wound Culture - Final Staphylococcus Aureus 12/29/18 14:15 Aerobic Blood Culture - Final Blood Venous No Growth Day 5 Anaerobic Blood Culture - Final No Growth Day 5 12/29/18 16:00 Gram Stain - Final Foot Left Wound Culture - Final Staphylococcus Aureus Normal Nadja 12/29/18 16:00 Skin and Soft Tissue MRSA/MSSA (PCR - Final Foot Left Mrsa Negative S.aureus Negative Gram Stain - Final Wound Culture - Final Normal Nadja Left foot dressings removed, small amount bloody drainage on dressings, no purulence or foul odor. Lateral foot mild pink color. Laura drain removed. soreness diffusely lateral foot Assessment: []OPERATION: 1. Left foot irrigation and debridement 2. Excision of left 5th metatarsal base POD #1 Plan: [][place] removed, new dressing and JOE applied Clindamycin IV abx NWB LLE
--- NOTE | 2019-01-07 14:18 | PN ---
DIALYSIS NOTE: DATE OF DIALYSIS: 01/07/19 HISTORY: The patient was seen and examined at beside. During dialysis, the patient is tolerating th e procedure well. Usual prescription being followed with UF goal increased and currently, even thoug h the patient is below his dry weight, we will take off 1 L in light of his surgery and then we will evaluate if the patient needs readjustment of his dry weight as an outpatient. PHYSICAL EXAMINATION: HEENT: NCAT. Heart: S1, S2 present. Regular at the time of exam. Lungs de creased breath sounds bilaterally. Abdomen: Soft. Extremities noted to have no edema. Left foot i n dressing. Neuro: Alert, oriented. ASSESSMENT AND PLAN: We will follow with the primary medical team. [id number]/[facility] #: [id number]
[2019-01-07] MEDS ORDERED: Ondansetron INJ* 2 MG/ML VIAL IV PRN (14:22)
[2019-01-07] MEDS: ceFAZolin 1 GM ADVAN(*) 1 GM in NS 0.9% 50 ML* 50 ML IVPB SCH (15:10)
[2019-01-07] MEDS: Ondansetron ODT TAB* 4 MG SL PRN (15:10)
--- NOTE | 2019-01-07 16:39 | PN ---
Subjective Interval History: POD #1 fromleft 5th metatarsal base amputation with Dr. Fraire Afebrile, no acute events overnight. Complaint of spitting up occasionally after food or water. Had similar as outpatient that self resolved. No pain. Did have episode of nausea and vomiting after lunch. Denies abdominal pain. Was a bit SOB after getting EKG. Abdomen distended with shifting dullness to percussion consistent with potential ascites. No current EtOH use but has history of. Using a walker at home Family History: Unchanged from Admission Social History: Unchanged from Admission Past Medical History: Unchanged from Admission Objective Active Medications: Acetaminophen (Tylenol Tab*) 650 mg PO Q4H PRN PRN Reason: FEVER/PAIN Hydrocodone Bitart/Acetaminophen ([place] 5-325 Tab*) 2 tab PO Q6H PRN PRN Reason: PAIN Last Admin: 01/07/19 15:10 Dose: 2 tab Aspirin (Aspirin 81 Mg Chew Tab*) 81 mg PO DAILY [facility] Last Admin: 01/07/19 08:08 Dose: 81 mg Atorvastatin Calcium (Lipitor*) 80 mg PO QAM [facility] Last Admin: 01/07/19 08:08 Dose: 80 mg Calcium Carbonate (Tums*) 500 mg PO Q4H PRN PRN Reason: INDIGESTION Last Admin: 12/30/18 14:18 Dose: 500 mg Dextrose (D50w Syringe 50 Ml*) 12.5 gm IV PUSH .FOR FS < 60 - SS PRN PRN Reason: FS < 60 Docusate Sodium (Colace Cap*) 100 mg PO BID [facility] Last Admin: 01/07/19 08:09 Dose: Not Given Gemfibrozil (Lopid Tab*) 600 mg PO BID [facility] Last Admin: 01/07/19 08:08 Dose: 600 mg Heparin Sodium (Porcine) (Heparin Vial(*)) 5,000 units SUBCUT Q8HR [facility] Last Admin: 01/07/19 15:10 Dose: 5,000 units Sodium Chloride (Ns 0.45% 1000 Ml Bag*) 1,000 mls @ 0 mls/hr IV KVO [facility] Cefazolin Sodium 1 gm/ Sodium (Chloride) 50 mls @ 200 mls/hr IVPB Q24H [facility] Last Admin: 01/07/19 15:10 Dose: 200 mls/hr Insulin Human Lispro (Humalog*) 0 units SUBCUT AC GERONIMO; Protocol Last Admin: 01/07/19 12:32 Dose: Not Given Magnesium Hydroxide (Milk Of Magnesia Liq*) 30 ml PO BID PRN PRN Reason: CONSTIPATION Metoprolol Succinate (Toprol Xl Tab*) 25 mg PO QAM [facility] Last Admin: 01/07/19 08:00 Dose: Not Given Ondansetron HCl (Zofran Inj*) 4 mg IV Q6H PRN PRN Reason: NAUSEA Ondansetron HCl (Zofran Odt Tab*) 4 mg SL Q6H PRN PRN Reason: NAUSEA/VOMITING Last Admin: 01/07/19 15:10 Dose: 4 mg Pantoprazole Sodium (Protonix Tab*) 40 mg PO DAILY [facility] Last Admin: 01/07/19 08:08 Dose: 40 mg Polyethylene Glycol/Electrolytes (Miralax*) 17 gm PO DAILY PRN PRN Reason: CONSTIPATION Senna (Senokot Tab*) 1 tab PO BEDTIME PRN PRN Reason: CONSTIPATION Sevelamer Carbonate (Renvela Tab*) 1,600 mg PO [id number] [facility] Last Admin: 01/07/19 14:16 Dose: Not Given Vital Signs - 8 hr 01/07/19 01/07/19 09:48 15:10 Respiratory 16 18 Rate Oxygen Devices in Use Now: None Appearance: NAD, mild tachypnea Eyes: No Scleral Icterus Ears/Nose/Mouth/Throat: NL Teeth, Lips, Gums Respiratory: - - decreased at bases, no rhonchi or wheezing Cardiovascular: NL Sounds; No Murmurs; No JVD, RRR Abdominal: - - distended soft nontender. shifting dullness to percussion Extremities: - - s/p left 2-5 metatarsal amputation. distal sensation and movement intact in left 1st toe. no drainage to gauze noted Skin: No Rash or Ulcers Neurological: Alert and Oriented x 3, NL Sensation, NL Muscle Strength and Tone Nutrition: Taking PO's Result Diagrams: 01/06/19 06:14 01/06/19 06:14 Additional Lab and Data: Laboratory Results - last 24 hr 01/07/19 01/07/19 01/07/19 07:36 12:02 16:46 POC Glucose (mg/dL) 122 H 93 119 H Microbiology and Other Data: Microbiology 01/06/19 12:01 Wound Anaerobic Culture - Preliminary No Growth Day 1 01/06/19 12:01 Foot Left Skin and Soft Tissue MRSA/MSSA (PCR - Final Mrsa Negative S.aureus Positive 01/06/19 12:01 Foot Left Gram Stain - Final 01/06/19 12:01 Foot Left Wound Culture - Preliminary No Growth Day 1 01/03/19 10:13 Foot Left Gram Stain - Final 01/03/19 10:13 Foot Left Wound Culture - Final Staphylococcus Aureus 12/29/18 14:15 Blood Venous Aerobic Blood Culture - Final No Growth Day 5 12/29/18 14:15 Blood Venous Anaerobic Blood Culture - Final No Growth Day 5 12/29/18 16:00 Foot Left Gram Stain - Final 12/29/18 16:00 Foot Left Wound Culture - Final Staphylococcus Aureus Normal Nadja 12/29/18 16:00 Foot Left Skin and Soft Tissue MRSA/MSSA (PCR - Final Mrsa Negative S.aureus Negative 12/29/18 16:00 Foot Left Gram Stain - Final 12/29/18 16:00 Foot Left Wound Culture - Final Normal Nadja Diagnostic Imagin02/11/18 - VL ANK/BRACHIAL INDICES: Ankle-brachial indices: Right: Value (SBP) Index Brachial: 164 Posterior tibialis: Noncompressible Dorsalis pedis: Noncompressible Digit: 56 0.33 Left: Value (SBP) Index Brachial: 172 Posterior tibialis: Noncompressible Dorsalis pedis: Noncompressible Digit: 47 0.27 Doppler waveforms (acquired at rest): In the interrogated lower extremity arteries, Doppler waveforms are monophasic and the bilateral lower extremities with notably reduced amplitude at the right posterior tibial artery. Volume pulse recordings (acquired at rest): Volume pulse recordings measures 17 mm on the right and 35 mm on the left, a significant discrepancy indicating relatively decreased flow in the right ankle relative to the left. IMPRESSION: 1. Noncompressibility of the pedal arteries is consistent with advanced calcified atherosclerosis. 2. Values measured at the bilateral digits are consistent with rest pain. 3. The arterial waveforms measured at the bilateral feet and ankles are greatly attenuated and arranged indicating arterial insufficiency. 02/11/181933 - CTA ABD AORTA & RUNOFF: IMPRESSION: ABDOMINAL AORTA: #. Normal diameter abdominal aorta without evidence for dissection or hemodynamic significant stenosis. RIGHT ILIAC and LOWER EXTREMITY ARTERIES: #. 80% short segment stenosis at the RIGHT common iliac artery. #. 70% stenosis at the RIGHT superficial femoral artery. #. 50% stenosis at the RIGHT SFA at the adductor canal. #. Marked high-grade stenosis at the distal RIGHT popliteal artery. #. Suggestion of limited three-vessel runoff to the RIGHT ankle. LEFT ILIAC and LOWER EXTREMITY ARTERIES: #. Up to 60% stenosis at the mid segment of the LEFT superficial femoral artery. #. Up to 50% short segment stenosis at the infrageniculate LEFT popliteal artery. #. Suggestion of limited three-vessel runoff to the LEFT ankle. 12/29/18 1632 - MRI LOWER EXTREMITY LEFT W/O IMPRESSION: 1. Motion artifact is problematic on several sequences. 2. 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 No acute fracture. 3. Detail of the great toe is limited. There appears to be infiltrative change suggesting cellulitis distally. There is not a definite visualized abscess, nor is there current convincing evidence for osteomyelitis. 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 MSSA from cultures on cefazolin. 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 - Patient Problems (1) Subacute osteomyelitis, left ankle and foot Current Visit: Yes Status: Acute Priority: High Code(s): M86.272 - SUBACUTE OSTEOMYELITIS, LEFT ANKLE AND FOOT SNOMED Code(s): 53158103 Comment: -Appreciate ID and wound consult, will continue clindamycin until new bone/operative culture data comes back. -s/p left 5th metatarsal base amputatoin with Dr. Matias 12/06. NWB, PT. (2) Ascites Current Visit: Yes Status: Acute Code(s): R18.8 - OTHER ASCITES SNOMED Code(s): 708662807 Comment: Pt with evidence of volume overload on CXR and moderate to large ascites. No abdominal pain but some N/V (2/2 uremia? vs abdominal distention). Consider diagnostic/therapeutic paracentesis. Check LFTs, albumin, total protein in AM. (3) Coronary artery disease Current Visit: Yes Status: Acute Code(s): I25.10 - ATHSCL HEART DISEASE OF [place] CORONARY ARTERY W/O ANG PCTRS SNOMED Code(s): 47273170 Comment: No c/o chest pain. Continue ASA, lipitor and gemfibrozil. (4) ESRD (end stage renal disease) Current Visit: Yes Status: Acute Priority: Medium Code(s): N18.6 - END STAGE RENAL DISEASE SNOMED Code(s): 12785133 Comment: -Continue MWF dialysis. -Dr. Martínez consult appreciated. (5) HTN (hypertension) Current Visit: Yes Status: Chronic Priority: High Code(s): I10 - ESSENTIAL (PRIMARY) HYPERTENSION SNOMED Code(s): 55725296 Comment: BP is under good control. Continue metoprolol. (6) Type 2 diabetes mellitus Current Visit: Yes Status: Chronic Priority: Medium Comment: -Diabetes under good control. -Continue lispro sliding scale. Status and Disposition: inpatient
[2019-01-08] MEDS: Heparin VIAL(*) 5000 UNITS/ML VIAL (FIVE THOUSAND) SUBCUT SCH ×3 (05:39→21:46)
[2019-01-08 07:09] LABS: Albumin 2.5 g/dL (3.2-5.2); Calcium 7.9 mg/dL (8.6-10.3); Indirect Bilirubin 0.4 mg/dL (0.3-1.0); Potassium 4.4 mmol/L (3.5-5.0); Total Bilirubin 0.6 mg/dL (0.2-1.0)
[2019-01-08 07:15] LABS: Albumin/Globulin Ratio 0.8 (1-3); BUN/Creatinine Ratio 6.6 (8-20); EGFR African American 16.1 (>60); EGFR Non-African American 13.3 (>60); Globulin 3.2 g/dL (2-4); Total Protein 5.7 g/dL (6.4-8.9)
[2019-01-08] MEDS: Insulin LISPRO* 1 UNITS UNIT SUBCUT SCH ×3 (07:36→17:45)
[2019-01-08] MEDS: Metoprolol Succinate XL TAB* 25 MG PO SCH (08:46)
[2019-01-08] MEDS: Atorvastatin* 80 MG TAB PO SCH (08:50)
[2019-01-08] MEDS: Pantoprazole TAB * 40 MG TAB PO SCH (08:51)
[2019-01-08] MEDS: Aspirin 81 mg CHEW TAB* 81 MG TAB.CHEW PO SCH (08:51)
[2019-01-08] MEDS: Gemfibrozil TAB* 600 MG PO SCH ×2 (08:51→21:45)
[2019-01-08] MEDS: HYDROcodone/ACETAMIN 5-325 MG* 1 TAB PO PRN ×3 (09:02→21:45)
[2019-01-08] MEDS: Sevelamer TAB* 800 MG PO SCH ×3 (09:03→17:44)
[2019-01-08] MEDS: Docusate CAP* 100 MG PO SCH ×2 (09:03→21:46)
[2019-01-08] MEDS: Ondansetron ODT TAB* 4 MG SL PRN (09:41)
--- NOTE | 2019-01-08 11:41 | PN ---
Progress Note - Progress Note Date of Service: 01/08/19 SOAP: Subjective: Pt is doing well. Pain is controlled. No calf pain, Denies F/C, CP/SOB Objective: PE- 73 y/o WDWN M NAD A&Ox3 LLE- dressing c/d/i, calf soft NT, brisk cap refill of 1st toe, NVI Vital Signs Temp Pulse Resp BP Pulse Ox 96.6 F 62 18 98/40 100 01/08/19 08:01 01/08/19 08:01 01/08/19 09:02 01/08/19 08:01 01/08/19 08:01 Laboratory Results - last 24 hr 01/07/19 01/07/19 01/08/19 12:02 16:46 06:31 Sodium 130 L Potassium 4.4 Chloride 94 L Carbon Dioxide 25 Anion Gap 11 BUN 29 H Creatinine 4.37 H Est GFR ( Amer) 16.1 Est GFR (Non-Af Amer) 13.3 BUN/Creatinine Ratio 6.6 L Glucose 117 H POC Glucose (mg/dL) 93 119 H Calcium 7.9 L Total Bilirubin 0.60 Direct Bilirubin 0.20 H Indirect Bilirubin 0.4 AST 12 L ALT 3 L Alkaline Phosphatase 105 H Total Protein 5.7 L Albumin 2.5 L Globulin 3.2 Albumin/Globulin Ratio 0.8 L Assessment: []OPERATION: 1. Left foot irrigation and debridement 2. Excision of left 5th metatarsal base POD #2 Plan: Continue Clindamycin IV abx Dressing change tomorrow NWB LLE
[2019-01-08] MEDS: ceFAZolin 1 GM ADVAN(*) 1 GM in NS 0.9% 50 ML* 50 ML IVPB SCH (14:05)
[2019-01-08] MEDS ORDERED: Albumin Human 25%* 50 GM/200 ML BTL IV ONE (17:27)
[2019-01-08] MEDS ORDERED: HYDROcodone/ACETAMIN 5-325 MG* 1 TAB PO ONE (17:32)
--- NOTE | 2019-01-08 17:32 | PN ---
Hospitalist Progress Note Procedure Report: Paracentesis Lidocaine 1%: 2cc used Performed by Alex Mendez MD with help from RN Liliana Luevano. Informed Consent (by Rickie) and Time out performed. 8L of clear yellow ascites removed (starting 1628) from left lower quadrant under ultrasound guidance will replace 50gm albumin infusion pt tolerated the procedure well cell count, gram stain, culture, body fluid total protein, body fluid albumin ( [facility]
[2019-01-08 17:45] LABS: Body Fluid Source Peritonial Fluid
[2019-01-08] MEDS: Albumin Human 25%* 25 GM/100 ML BTL IV SCH ×2 (18:10→19:30)
[2019-01-08 19:10] LABS: Body Fluid Band 1 %; Body Fluid Mono 58 %; Body Fluid Other Cells 2
--- NOTE | 2019-01-08 22:07 | PN ---
Subjective Date of Service: 01/08/19 Interval History: No acute events overnight, afebrile. SBP 90s in am, metoprolol held. norco 2 tabs q6 but peaking to 7/10 pain in foot. Paracentesis (US guided) performed at bedside, 8L taken off (stopped, good flow rate still into vacuum glasses), 50mg albumin ordered to transfuse. Abdomen felt better afterward. He does make a small amount of urine, few times a day. Family History: Unchanged from Admission Social History: Unchanged from Admission Past Medical History: Unchanged from Admission Objective Active Medications: Acetaminophen (Tylenol Tab*) 650 mg PO Q4H PRN PRN Reason: FEVER/PAIN Hydrocodone Bitart/Acetaminophen ([place] 5-325 Tab*) 2 tab PO Q6H PRN PRN Reason: PAIN Last Admin: 01/08/19 21:45 Dose: 2 tab Aspirin (Aspirin 81 Mg Chew Tab*) 81 mg PO DAILY [facility] Last Admin: 01/08/19 08:51 Dose: 81 mg Atorvastatin Calcium (Lipitor*) 80 mg PO QAM [facility] Last Admin: 01/08/19 08:50 Dose: 80 mg Calcium Carbonate (Tums*) 500 mg PO Q4H PRN PRN Reason: INDIGESTION Last Admin: 12/30/18 14:18 Dose: 500 mg Dextrose (D50w Syringe 50 Ml*) 12.5 gm IV PUSH .FOR FS < 60 - SS PRN PRN Reason: FS < 60 Docusate Sodium (Colace Cap*) 100 mg PO BID [facility] Last Admin: 01/08/19 21:46 Dose: 100 mg Gemfibrozil (Lopid Tab*) 600 mg PO BID [facility] Last Admin: 01/08/19 21:45 Dose: 600 mg Heparin Sodium (Porcine) (Heparin Vial(*)) 5,000 units SUBCUT Q8HR [facility] Last Admin: 01/08/19 21:46 Dose: 5,000 units Sodium Chloride (Ns 0.45% 1000 Ml Bag*) 1,000 mls @ 0 mls/hr IV KVO [facility] Cefazolin Sodium 1 gm/ Sodium (Chloride) 50 mls @ 200 mls/hr IVPB Q24H [facility] Last Admin: 01/08/19 14:05 Dose: 200 mls/hr Insulin Human Lispro (Humalog*) 0 units SUBCUT AC [facility]; Protocol Last Admin: 01/08/19 17:45 Dose: 1 units Magnesium Hydroxide (Milk Of Magnesia Liq*) 30 ml PO BID PRN PRN Reason: CONSTIPATION Metoprolol Succinate (Toprol Xl Tab*) 25 mg PO QAM [facility] Ondansetron HCl (Zofran Inj*) 4 mg IV Q6H PRN PRN Reason: NAUSEA Ondansetron HCl (Zofran Odt Tab*) 4 mg SL Q6H PRN PRN Reason: NAUSEA/VOMITING Last Admin: 01/08/19 09:41 Dose: 4 mg Pantoprazole Sodium (Protonix Tab*) 40 mg PO DAILY [facility] Last Admin: 01/08/19 08:51 Dose: 40 mg Polyethylene Glycol/Electrolytes (Miralax*) 17 gm PO DAILY PRN PRN Reason: CONSTIPATION Senna (Senokot Tab*) 1 tab PO BEDTIME PRN PRN Reason: CONSTIPATION Sevelamer Carbonate (Renvela Tab*) 1,600 mg PO 0845,1245,1745 [facility] Last Admin: 01/08/19 17:44 Dose: 1,600 mg Vital Signs - 8 hr 01/08/19 01/08/19 01/08/19 15:02 15:37 16:00 Temperature 98.1 F Pulse Rate 85 Respiratory 20 16 Rate Blood Pressure 118/47 (mmHg) O2 Sat by Pulse 91 93 Oximetry 01/08/19 01/08/19 01/08/19 17:32 17:44 18:16 Temperature 96.9 F Pulse Rate 55 57 Respiratory 24 22 22 Rate Blood Pressure 96/40 95/31 (mmHg) O2 Sat by Pulse 91 93 Oximetry 01/08/19 01/08/19 18:32 21:45 Temperature 96.9 F Pulse Rate 55 Respiratory 24 18 Rate Blood Pressure 102/40 (mmHg) O2 Sat by Pulse 94 Oximetry Oxygen Devices in Use Now: None Appearance: NAD Eyes: No Scleral Icterus, PERRLA Ears/Nose/Mouth/Throat: NL Teeth, Lips, Gums Neck: NL Appearance and Movements; NL JVP Respiratory: - - bibasilar rales Cardiovascular: NL Sounds; No Murmurs; No JVD, RRR Abdominal: - - before para: large distension with shifting dullness to percussion. Extremities: - - s/p left latarel metatarsal and 5th metatarsal base amputation. dressing c/d/i Skin: No Rash or Ulcers Neurological: Alert and Oriented x 3 Nutrition: Taking PO's Result Diagrams: 01/06/19 06:14 01/08/19 06:31 Additional Lab and Data: Laboratory Results - last 24 hr 01/08/19 01/08/19 01/08/19 06:31 11:31 16:28 Sodium 130 L Potassium 4.4 Chloride 94 L Carbon Dioxide 25 Anion Gap 11 BUN 29 H Creatinine 4.37 H Est GFR ( Amer) 16.1 Est GFR (Non-Af Amer) 13.3 BUN/Creatinine Ratio 6.6 L Glucose 117 H POC Glucose (mg/dL) 140 H Calcium 7.9 L Total Bilirubin 0.60 Direct Bilirubin 0.20 H Indirect Bilirubin 0.4 AST 12 L ALT 3 L Alkaline Phosphatase 105 H Total Protein 5.7 L Albumin 2.5 L Globulin 3.2 Albumin/Globulin Ratio 0.8 L Fluid Source Peritonial fluid Fluid Volume 50.0 Fluid Color Yellow Fluid Appearance Clear Fluid WBC 358 Fluid RBC 313 Fluid Tot Cell Count 100 Fluid Neutrophils 36 Fluid Band Neutrophils 1 Fluid Lymphocytes 4 Fluid Monocytes 58 Fluid Eosinophils 1 Fluid Other Cells 2 Fluid Comment 01/08/19 17:26 Sodium Potassium Chloride Carbon Dioxide Anion Gap BUN Creatinine Est GFR ( Amer) Est GFR (Non-Af Amer) BUN/Creatinine Ratio Glucose POC Glucose (mg/dL) 132 H Calcium Total Bilirubin Direct Bilirubin Indirect Bilirubin AST ALT Alkaline Phosphatase Total Protein Albumin Globulin Albumin/Globulin Ratio Fluid Source Fluid Volume Fluid Color Fluid Appearance Fluid WBC Fluid RBC Fluid Tot Cell Count Fluid Neutrophils Fluid Band Neutrophils Fluid Lymphocytes Fluid Monocytes Fluid Eosinophils Fluid Other Cells Fluid Comment Microbiology and Other Data: Microbiology 01/08/19 16:28 Body Fluid Gram Stain - Preliminary 01/06/19 12:01 Wound Anaerobic Culture - Preliminary No Growth Day 2 01/06/19 12:01 Foot Left Skin and Soft Tissue MRSA/MSSA (PCR - Final Mrsa Negative S.aureus Positive 01/06/19 12:01 Foot Left Gram Stain - Final 01/06/19 12:01 Foot Left Wound Culture - Preliminary No Growth Day 2 01/03/19 10:13 Foot Left Gram Stain - Final 01/03/19 10:13 Foot Left Wound Culture - Final Staphylococcus Aureus 12/29/18 14:15 Blood Venous Aerobic Blood Culture - Final No Growth Day 5 12/29/18 14:15 Blood Venous Anaerobic Blood Culture - Final No Growth Day 5 12/29/18 16:00 Foot Left Gram Stain - Final 12/29/18 16:00 Foot Left Wound Culture - Final Staphylococcus Aureus Normal Nadja 12/29/18 16:00 Foot Left Skin and Soft Tissue MRSA/MSSA (PCR - Final Mrsa Negative S.aureus Negative 12/29/18 16:00 Foot Left Gram Stain - Final 12/29/18 16:00 Foot Left Wound Culture - Final Normal Nadja Diagnostic Imagin02/11/18 - VL ANK/BRACHIAL INDICES: Ankle-brachial indices: Right: Value (SBP) Index Brachial: 164 Posterior tibialis: Noncompressible Dorsalis pedis: Noncompressible Digit: 56 0.33 Left: Value (SBP) Index Brachial: 172 Posterior tibialis: Noncompressible Dorsalis pedis: Noncompressible Digit: 47 0.27 Doppler waveforms (acquired at rest): In the interrogated lower extremity arteries, Doppler waveforms are monophasic and the bilateral lower extremities with notably reduced amplitude at the right posterior tibial artery. Volume pulse recordings (acquired at rest): Volume pulse recordings measures 17 mm on the right and 35 mm on the left, a significant discrepancy indicating relatively decreased flow in the right ankle relative to the left. IMPRESSION: 1. Noncompressibility of the pedal arteries is consistent with advanced calcified atherosclerosis. 2. Values measured at the bilateral digits are consistent with rest pain. 3. The arterial waveforms measured at the bilateral feet and ankles are greatly attenuated and arranged indicating arterial insufficiency. 02/11/181933 - CTA ABD AORTA & RUNOFF: IMPRESSION: ABDOMINAL AORTA: #. Normal diameter abdominal aorta without evidence for dissection or hemodynamic significant stenosis. RIGHT ILIAC and LOWER EXTREMITY ARTERIES: #. 80% short segment stenosis at the RIGHT common iliac artery. #. 70% stenosis at the RIGHT superficial femoral artery. #. 50% stenosis at the RIGHT SFA at the adductor canal. #. Marked high-grade stenosis at the distal RIGHT popliteal artery. #. Suggestion of limited three-vessel runoff to the RIGHT ankle. LEFT ILIAC and LOWER EXTREMITY ARTERIES: #. Up to 60% stenosis at the mid segment of the LEFT superficial femoral artery. #. Up to 50% short segment stenosis at the infrageniculate LEFT popliteal artery. #. Suggestion of limited three-vessel runoff to the LEFT ankle. 06/05/19 1632 - MRI LOWER EXTREMITY LEFT W/O IMPRESSION: 1. Motion artifact is problematic on several sequences. 2. 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 No acute fracture. 3. Detail of the great toe is limited. There appears to be infiltrative change suggesting cellulitis distally. There is not a definite visualized abscess, nor is there current convincing evidence for osteomyelitis. 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 MSSA from cultures on cefazolin. 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 Moderate-Large ascites noted (new) s/p 8L para 01/08 - Patient Problems (1) Subacute osteomyelitis, left ankle and foot Current Visit: Yes Status: Acute Priority: High Code(s): M86.272 - SUBACUTE OSTEOMYELITIS, LEFT ANKLE AND FOOT SNOMED Code(s): 56721663 Comment: -Appreciate ID and wound consult, will continue clindamycin until new bone/operative culture data comes back. -s/p left 5th metatarsal base amputatoin with Dr. Matias 12/06. NWB, PT. (2) Ascites Current Visit: Yes Status: Acute Code(s): R18.8 - OTHER ASCITES SNOMED Code(s): 151769109 Comment: Pt with evidence of volume overload on CXR and moderate to large ascites on limited US. Had some lower abdominal tendernesss today. s/p 8L para 01/08. f/u ascites albumin(unfortunately a send-out to [place], total protein, cell counts, GS, culture to help determine etiology of the ascites. (3) Coronary artery disease Current Visit: Yes Status: Acute Code(s): I25.10 - ATHSCL HEART DISEASE OF [place] CORONARY ARTERY W/O ANG PCTRS SNOMED Code(s): 63621526 Comment: No c/o chest pain. Continue ASA, lipitor and gemfibrozil. (4) ESRD (end stage renal disease) Current Visit: Yes Status: Acute Priority: Medium Code(s): N18.6 - END STAGE RENAL DISEASE SNOMED Code(s): 91909042 Comment: -Continue MWF dialysis. -Dr. Martínez consult appreciated. - of note target weight will have to be adjusted ~20lbs given the 8L volume removed. (5) HTN (hypertension) Current Visit: Yes Status: Chronic Priority: High Code(s): I10 - ESSENTIAL (PRIMARY) HYPERTENSION SNOMED Code(s): 92535422 Comment: BP low normal. Continue metoprolol with hold parameters. albumin 50gm given the 8L para removed. (6) Type 2 diabetes mellitus Current Visit: Yes Status: Chronic Priority: Medium Comment: -Diabetes under good control. -Continue lispro sliding scale. Status and Disposition: inpatient
[2019-01-09] MEDS: Heparin VIAL(*) 5000 UNITS/ML VIAL (FIVE THOUSAND) SUBCUT SCH ×3 (05:50→21:49)
[2019-01-09] MEDS: Aspirin 81 mg CHEW TAB* 81 MG TAB.CHEW PO SCH (07:29)
[2019-01-09] MEDS: Atorvastatin* 80 MG TAB PO SCH (07:29)
[2019-01-09] MEDS: Pantoprazole TAB * 40 MG TAB PO SCH (07:29)
[2019-01-09] MEDS: HYDROcodone/ACETAMIN 5-325 MG* 1 TAB PO PRN ×3 (07:29→19:37)
[2019-01-09] MEDS: Gemfibrozil TAB* 600 MG PO SCH ×2 (07:29→19:38)
[2019-01-09] MEDS: Insulin LISPRO* 1 UNITS UNIT SUBCUT SCH ×3 (07:42→18:11)
[2019-01-09] MEDS: Docusate CAP* 100 MG PO SCH ×2 (07:43→19:39)
[2019-01-09] MEDS: Ondansetron ODT TAB* 4 MG SL PRN (09:37)
[2019-01-09] MEDS: Metoprolol Succinate XL TAB* 25 MG PO SCH (09:40)
--- NOTE | 2019-01-09 10:18 | PN ---
Subjective Date of Service: 01/09/19 Interval History: No acute events overnight, afebrile. Feeling great after the para (8L out) yesterday. Able to eat dinner without any spitting up/n/v 7/10 left foot throbbing currently. SBP improved to low 100s. no cp/abd pain, f/c. Family History: Unchanged from Admission Social History: Unchanged from Admission Past Medical History: Unchanged from Admission Objective Active Medications: Acetaminophen (Tylenol Tab*) 650 mg PO Q4H PRN PRN Reason: FEVER/PAIN Hydrocodone Bitart/Acetaminophen ([place] 5-325 Tab*) 2 tab PO Q6H PRN PRN Reason: PAIN Last Admin: 01/09/19 07:29 Dose: 2 tab Aspirin (Aspirin 81 Mg Chew Tab*) 81 mg PO DAILY [facility] Last Admin: 01/09/19 07:29 Dose: 81 mg Atorvastatin Calcium (Lipitor*) 80 mg PO QAM [facility] Last Admin: 01/09/19 07:29 Dose: 80 mg Calcium Carbonate (Tums*) 500 mg PO Q4H PRN PRN Reason: INDIGESTION Last Admin: 12/30/18 14:18 Dose: 500 mg Dextrose (D50w Syringe 50 Ml*) 12.5 gm IV PUSH .FOR FS < 60 - SS PRN PRN Reason: FS < 60 Docusate Sodium (Colace Cap*) 100 mg PO BID [facility] Last Admin: 01/09/19 07:43 Dose: Not Given Gemfibrozil (Lopid Tab*) 600 mg PO BID [facility] Last Admin: 01/09/19 07:29 Dose: 600 mg Heparin Sodium (Porcine) (Heparin Vial(*)) 5,000 units SUBCUT Q8HR [facility] Last Admin: 01/09/19 05:50 Dose: 5,000 units Sodium Chloride (Ns 0.45% 1000 Ml Bag*) 1,000 mls @ 0 mls/hr IV KVO [facility] Cefazolin Sodium 1 gm/ Sodium (Chloride) 50 mls @ 200 mls/hr IVPB Q24H [facility] Last Admin: 01/08/19 14:05 Dose: 200 mls/hr Insulin Human Lispro (Humalog*) 0 units SUBCUT AC [facility]; Protocol Last Admin: 01/09/19 07:42 Dose: Not Given Magnesium Hydroxide (Milk Of Magnesia Liq*) 30 ml PO BID PRN PRN Reason: CONSTIPATION Metoprolol Succinate (Toprol Xl Tab*) 25 mg PO QAM [facility] Last Admin: 01/09/19 09:40 Dose: Not Given Ondansetron HCl (Zofran Inj*) 4 mg IV Q6H PRN PRN Reason: NAUSEA Ondansetron HCl (Zofran Odt Tab*) 4 mg SL Q6H PRN PRN Reason: NAUSEA/VOMITING Last Admin: 01/09/19 09:37 Dose: 4 mg Pantoprazole Sodium (Protonix Tab*) 40 mg PO DAILY [facility] Last Admin: 01/09/19 07:29 Dose: 40 mg Polyethylene Glycol/Electrolytes (Miralax*) 17 gm PO DAILY PRN PRN Reason: CONSTIPATION Senna (Senokot Tab*) 1 tab PO BEDTIME PRN PRN Reason: CONSTIPATION Sevelamer Carbonate (Renvela Tab*) 1,600 mg PO 0845,1245,1745 [facility] Last Admin: 01/08/19 17:44 Dose: 1,600 mg Vital Signs - 8 hr 01/09/19 01/09/19 01/09/19 03:42 07:29 09:41 Temperature 97 F 97.4 F Pulse Rate 70 81 Respiratory 20 18 20 Rate Blood Pressure 105/51 95/37 (mmHg) O2 Sat by Pulse 90 Oximetry Oxygen Devices in Use Now: None Appearance: NAD Eyes: No Scleral Icterus Ears/Nose/Mouth/Throat: NL Teeth, Lips, Gums Respiratory: Symmetrical Chest Expansion and Respiratory Effort, Clear to Auscultation Cardiovascular: NL Sounds; No Murmurs; No JVD, RRR Abdominal: - - soft, much much less distended, still likely some residual or reaccumulated ascites. nontender Extremities: No Edema Skin: - - left metatarsal base examined during dressing change, sutures intact , 2 cm round exfoliated layer of skin lateral/inferior. s/p left lateal metatarsal amputation. no edema Neurological: Alert and Oriented x 3, NL Sensation Nutrition: Taking PO's Result Diagrams: 01/06/19 06:14 01/08/19 06:31 Additional Lab and Data: Laboratory Results - last 24 hr 01/08/19 01/08/19 01/08/19 11:31 16:28 17:26 POC Glucose (mg/dL) 140 H 132 H Fluid Source Peritonial fluid Fluid Volume 50.0 Fluid Color Yellow Fluid Appearance Clear Fluid WBC 358 Fluid RBC 313 Fluid Tot Cell Count 100 Fluid Neutrophils 36 Fluid Band Neutrophils 1 Fluid Lymphocytes 4 Fluid Monocytes 58 Fluid Eosinophils 1 Fluid Other Cells 2 Fluid Comment 01/09/19 07:34 POC Glucose (mg/dL) 95 Fluid Source Fluid Volume Fluid Color Fluid Appearance Fluid WBC Fluid RBC Fluid Tot Cell Count Fluid Neutrophils Fluid Band Neutrophils Fluid Lymphocytes Fluid Monocytes Fluid Eosinophils Fluid Other Cells Fluid Comment Microbiology and Other Data: Microbiology 01/06/19 12:01 Wound Anaerobic Culture - Preliminary No Growth Day 3 01/06/19 12:01 Foot Left Skin and Soft Tissue MRSA/MSSA (PCR - Final Mrsa Negative S.aureus Positive 01/06/19 12:01 Foot Left Gram Stain - Final 01/06/19 12:01 Foot Left Wound Culture - Preliminary No Growth Day 3 01/08/19 16:28 Body Fluid Gram Stain - Final 01/03/19 10:13 Foot Left Gram Stain - Final 01/03/19 10:13 Foot Left Wound Culture - Final Staphylococcus Aureus 12/29/18 14:15 Blood Venous Aerobic Blood Culture - Final No Growth Day 5 12/29/18 14:15 Blood Venous Anaerobic Blood Culture - Final No Growth Day 5 12/29/18 16:00 Foot Left Gram Stain - Final 12/29/18 16:00 Foot Left Wound Culture - Final Staphylococcus Aureus Normal Nadja 12/29/18 16:00 Foot Left Skin and Soft Tissue MRSA/MSSA (PCR - Final Mrsa Negative S.aureus Negative 12/29/18 16:00 Foot Left Gram Stain - Final 12/29/18 16:00 Foot Left Wound Culture - Final Normal Nadja Diagnostic Imagin02/11/18 - VL ANK/BRACHIAL INDICES: Ankle-brachial indices: Right: Value (SBP) Index Brachial: 164 Posterior tibialis: Noncompressible Dorsalis pedis: Noncompressible Digit: 56 0.33 Left: Value (SBP) Index Brachial: 172 Posterior tibialis: Noncompressible Dorsalis pedis: Noncompressible Digit: 47 0.27 Doppler waveforms (acquired at rest): In the interrogated lower extremity arteries, Doppler waveforms are monophasic and the bilateral lower extremities with notably reduced amplitude at the right posterior tibial artery. Volume pulse recordings (acquired at rest): Volume pulse recordings measures 17 mm on the right and 35 mm on the left, a significant discrepancy indicating relatively decreased flow in the right ankle relative to the left. IMPRESSION: 1. Noncompressibility of the pedal arteries is consistent with advanced calcified atherosclerosis. 2. Values measured at the bilateral digits are consistent with rest pain. 3. The arterial waveforms measured at the bilateral feet and ankles are greatly attenuated and arranged indicating arterial insufficiency. 02/11/181933 - CTA ABD AORTA & RUNOFF: IMPRESSION: ABDOMINAL AORTA: #. Normal diameter abdominal aorta without evidence for dissection or hemodynamic significant stenosis. RIGHT ILIAC and LOWER EXTREMITY ARTERIES: #. 80% short segment stenosis at the RIGHT common iliac artery. #. 70% stenosis at the RIGHT superficial femoral artery. #. 50% stenosis at the RIGHT SFA at the adductor canal. #. Marked high-grade stenosis at the distal RIGHT popliteal artery. #. Suggestion of limited three-vessel runoff to the RIGHT ankle. LEFT ILIAC and LOWER EXTREMITY ARTERIES: #. Up to 60% stenosis at the mid segment of the LEFT superficial femoral artery. #. Up to 50% short segment stenosis at the infrageniculate LEFT popliteal artery. #. Suggestion of limited three-vessel runoff to the LEFT ankle. 12/29/181631 - MRI LOWER EXTREMITY LEFT W/O IMPRESSION: 1. Motion artifact is problematic on several sequences. 2. 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 No acute fracture. 3. Detail of the great toe is limited. There appears to be infiltrative change suggesting cellulitis distally. There is not a definite visualized abscess, nor is there current convincing evidence for osteomyelitis. 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 MSSA from cultures on cefazolin. 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 Moderate-Large ascites noted (new) s/p 8L para 6/15 - Patient Problems (1) Subacute osteomyelitis, left ankle and foot Current Visit: Yes Status: Acute Priority: High Code(s): M86.272 - SUBACUTE OSTEOMYELITIS, LEFT ANKLE AND FOOT SNOMED Code(s): 39799343 Comment: -Appreciate ID and wound consult, will continue clindamycin until new bone/operative culture sensitivities come back (with non mrsa staph) -s/p left 5th metatarsal base amputatoin with Dr. Matias 12/06. NWB, -PT (still not seen yet). (2) Ascites Current Visit: Yes Status: Acute Code(s): R18.8 - OTHER ASCITES SNOMED Code(s): 697968577 Comment: Pt had evidence of volume overload on CXR and moderate to large ascites on limited US. s/p 8L para 01/08. f/u ascites albumin(unfortunately a send-out to [place], total protein, cell counts (no e/o SBP though also on clinda), GS (no orgs), culture to help determine etiology of the ascites. (3) Coronary artery disease Current Visit: Yes Status: Acute Code(s): I25.10 - ATHSCL HEART DISEASE OF [place] CORONARY ARTERY W/O ANG PCTRS SNOMED Code(s): 45411452 Comment: No c/o chest pain. Continue ASA, lipitor and gemfibrozil. (4) ESRD (end stage renal disease) Current Visit: Yes Status: Acute Priority: Medium Code(s): N18.6 - END STAGE RENAL DISEASE SNOMED Code(s): 51182320 Comment: -Continue MWF dialysis. -Dr. Martínez consult appreciated. - of note target weight will have to be adjusted ~20lbs given the 8L volume removed. 94.4 kg this AM (5) HTN (hypertension) Current Visit: Yes Status: Chronic Priority: High Code(s): I10 - ESSENTIAL (PRIMARY) HYPERTENSION SNOMED Code(s): 66008420 Comment: BP low normal. Continue metoprolol with hold parameters. s/p 01/08 albumin 50gm given after the 8L para removed. (6) Type 2 diabetes mellitus Current Visit: Yes Status: Chronic Priority: Medium Comment: -Diabetes under good control. -Continue lispro sliding scale. Status and Disposition: inpatient, awaiting PT eval and final antibiotic recs
[2019-01-09] MEDS: Sevelamer TAB* 800 MG PO SCH ×3 (10:57→18:11)
--- NOTE | 2019-01-09 11:18 | PN ---
Progress Note - Progress Note Date of Service: 01/09/19 SOAP: Subjective: Pt is doing well. Pain is controlled. Denies F/C, CP/SOB and calf pain Objective: PE- 73 y/o WDWN M NAD LLE- dressing changes, inc c/d/i, minimal erythema, no active drainage, able F/ E ankle, calf soft NT, NVI Vital Signs Temp Pulse Resp BP Pulse Ox 97.4 F 81 20 95/37 90 01/09/19 09:41 01/09/19 09:41 01/09/19 09:41 01/09/19 09:41 01/09/19 03:42 Laboratory Results - last 24 hr 01/08/19 01/08/19 01/08/19 11:31 16:28 17:26 POC Glucose (mg/dL) 140 H 132 H Fluid Source Peritonial fluid Fluid Volume 50.0 Fluid Color Yellow Fluid Appearance Clear Fluid WBC 358 Fluid RBC 313 Fluid Tot Cell Count 100 Fluid Neutrophils 36 Fluid Band Neutrophils 1 Fluid Lymphocytes 4 Fluid Monocytes 58 Fluid Eosinophils 1 Fluid Other Cells 2 Fluid Comment 01/09/19 07:34 POC Glucose (mg/dL) 95 Fluid Source Fluid Volume Fluid Color Fluid Appearance Fluid WBC Fluid RBC Fluid Tot Cell Count Fluid Neutrophils Fluid Band Neutrophils Fluid Lymphocytes Fluid Monocytes Fluid Eosinophils Fluid Other Cells Fluid Comment Assessment: []OPERATION: 1. Left foot irrigation and debridement 2. Excision of left 5th metatarsal base POD #3 Plan: Continue Clindamycin IV abx Dressing change today and is healing well Cont NWB LLE Dispo per medicine, awaiting PT eval and abx
[2019-01-09] MEDS: ceFAZolin 1 GM ADVAN(*) 1 GM in NS 0.9% 50 ML* 50 ML IVPB SCH (13:36)
[2019-01-10] MEDS: HYDROcodone/ACETAMIN 5-325 MG* 1 TAB PO PRN ×4 (02:51→22:59)
[2019-01-10] MEDS: Heparin VIAL(*) 5000 UNITS/ML VIAL (FIVE THOUSAND) SUBCUT SCH ×4 (06:19→22:58)
[2019-01-10] MEDS: Docusate CAP* 100 MG PO SCH ×2 (07:31→22:31)
[2019-01-10] MEDS: Acetaminophen TAB* 325 MG PO PRN (07:31)
[2019-01-10] MEDS: Aspirin 81 mg CHEW TAB* 81 MG TAB.CHEW PO SCH (07:31)
[2019-01-10] MEDS: Gemfibrozil TAB* 600 MG PO SCH ×2 (07:31→22:32)
[2019-01-10] MEDS: Pantoprazole TAB * 40 MG TAB PO SCH (07:31)
[2019-01-10] MEDS: Atorvastatin* 80 MG TAB PO SCH (07:31)
[2019-01-10] MEDS: Insulin LISPRO* 1 UNITS UNIT SUBCUT SCH ×3 (07:32→17:35)
[2019-01-10] MEDS: Metoprolol Succinate XL TAB* 25 MG PO SCH (07:32)
[2019-01-10] MEDS: Sevelamer TAB* 800 MG PO SCH ×3 (08:48→17:35)
[2019-01-10 10:15] LABS: ABS Eosinophils 0.1 10^3/ul (0-0.6); ABS Lymphocytes 0.5 10^3/ul (1.0-4.8); ABS Monocytes 0.5 10^3/ul (0-0.8); ABS Neutrophils 5.7 10^3/ul (1.5-7.7); Eosinophil % 1.9 %; Hematocrit 31 % (42-52); Hemoglobin 10.3 g/dL (14.0-18.0); Lymphocyte % 7.6 %; Mean Corpuscular HGB Conc 33 g/dL (31-36); Mean Corpuscular Hemoglobin 31 pg (27-31); Mean Corpuscular Volume 93 fL (80-94); Mean Platelet Volume 7.1 fL (7.4-10.4); Platelet Count 212 10^3/uL (150-450); Red Blood Count 3.32 10^6 /uL (4.18-5.48); Red Cell Distribution Width 14 % (10-15); White Blood Count 6.9 10^3/uL (3.5-10.8)
--- NOTE | 2019-01-10 10:15 | PN ---
Progress Note - Progress Note Date of Service: 01/10/19 SOAP: Subjective: CC: Left foot cellulitis HPI: Mr. 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 Mr. El reports continued pain in the left foot. He doesn't feel like the pain has changed since surgery, he describes it as a constant ache. Denies fever, chills, ABD pain, nausea, vomiting, or diarrhea. He reports getting to the bathroom and a chair and is non weight bearing. Objective: Vital Signs - 8 hr 01/10/19 01/10/19 07:15 08:48 Temperature 97.3 F Pulse Rate 48 Respiratory 20 18 Rate Blood Pressure 105/48 (mmHg) O2 Sat by Pulse 94 Oximetry Physical Exam: General: NAD, laying in bed Neurological: Alert and Oriented x4 HEENT: No thrush, moist MM Cardiovascular: Heart rate regular, no murmur Respiratory: Lung sounds clear bilateral Abdominal: Bowel sounds present; ABD soft, large, non tender Skin: No rash. Dressing to left foot clean and dry, no erythema above dressing Laboratory Last Values WBC 6.7 10^3/uL (3.5-10.8) 01/06/19 06:14 RBC 3.33 10^6 /uL (4.18-5.48) L 01/06/19 06:14 Hgb 10.3 g/dL (14.0-18.0) L 01/06/19 06:14 Hct 31 % (42-52) L 01/06/19 06:14 MCV 92 fL (80-94) 01/06/19 06:14 MCH 31 pg (27-31) 01/06/19 06:14 MCHC 34 g/dL (31-36) 01/06/19 06:14 RDW 15 % (10-15) 01/06/19 06:14 Plt Count 222 10^3/uL (150-450) 01/06/19 06:14 MPV 7.2 fL (7.4-10.4) L 01/06/19 06:14 Neut % (Auto) 76.8 % 01/06/19 06:14 Lymph % (Auto) 11.6 % 01/06/19 06:14 [place] % (Auto) 8.4 % 01/06/19 06:14 Eos % (Auto) 2.4 % 01/06/19 06:14 Baso % (Auto) 0.8 % 01/06/19 06:14 Absolute Neuts (auto) 5.1 10^3/ul (1.5-7.7) 01/06/19 06:14 Absolute Lymphs (auto) 0.8 10^3/ul (1.0-4.8) L 01/06/19 06:14 Absolute Monos (auto) 0.6 10^3/ul (0-0.8) 01/06/19 06:14 Absolute Eos (auto) 0.2 10^3/ul (0-0.6) 01/06/19 06:14 Absolute Basos (auto) 0.1 10^3/ul (0-0.2) 01/06/19 06:14 Absolute Nucleated RBC 0.0 10^3/ul 01/06/19 06:14 Nucleated RBC % 0.0 01/06/19 06:14 INR (Anticoag Therapy) 1.27 (0.82-1.09) H 01/06/19 06:14 Sodium 130 mmol/L (135-145) L 01/08/19 06:31 Potassium 4.4 mmol/L (3.5-5.0) 01/08/19 06:31 Chloride 94 mmol/L (101-111) L 01/08/19 06:31 Carbon Dioxide 25 mmol/L (22-32) 01/08/19 06:31 Anion Gap 11 mmol/L (2-11) 01/08/19 06:31 BUN 29 mg/dL (6-24) H 01/08/19 06:31 Creatinine 4.37 mg/dL (0.67-1.17) H 01/08/19 06:31 1/Creatinine 0.17 01/03/19 08:24 Est GFR ( Amer) 16.1 (>60) 01/08/19 06:31 Est GFR (Non-Af Amer) 13.3 (>60) 01/08/19 06:31 BUN/Creatinine Ratio 6.6 (8-20) L 01/08/19 06:31 Glucose 117 mg/dL (70-100) H 01/08/19 06:31 POC Glucose (mg/dL) 131 mg/dL (70-100) H 01/10/19 07:16 Lactic Acid 2.2 mmol/L (0.5-2.0) H* 12/29/18 14:16 Calcium 7.9 mg/dL (8.6-10.3) L 01/08/19 06:31 Phosphorus 5.5 mg/dL (2.5-5.0) H 01/03/19 08:24 Magnesium 2.3 mg/dL (1.9-2.7) 01/03/19 08:24 Total Bilirubin 0.60 mg/dL (0.2-1.0) 01/08/19 06:31 Direct Bilirubin 0.20 mg/dL (0.03-0.18) H 01/08/19 06:31 Indirect Bilirubin 0.4 mg/dL (0.3-1.0) 01/08/19 06:31 AST 12 U/L (13-39) L 01/08/19 06:31 ALT 3 U/L (7-52) L 01/08/19 06:31 Alkaline Phosphatase 105 U/L (34-104) H 01/08/19 06:31 C-Reactive Protein 140.82 mg/L (<8.01) H 01/03/19 08:24 Total Protein 5.7 g/dL (6.4-8.9) L 01/08/19 06:31 Albumin 2.5 g/dL (3.2-5.2) L 01/08/19 06:31 Globulin 3.2 g/dL (2-4) 01/08/19 06:31 Albumin/Globulin Ratio 0.8 (1-3) L 01/08/19 06:31 Fluid Source Peritonial fluid 01/08/19 16:28 Fluid Volume 50.0 mL 01/08/19 16:28 Fluid Color Yellow 01/08/19 16:28 Fluid Appearance Clear 01/08/19 16:28 Fluid WBC 358 /mcL ([id number]) 01/08/19 16:28 Fluid RBC 313 /mcL 01/08/19 16:28 Fluid Tot Cell Count 100 01/08/19 16:28 Fluid Neutrophils 36 % 01/08/19 16:28 Fluid Band Neutrophils 1 % 01/08/19 16:28 Fluid Lymphocytes 4 % 01/08/19 16:28 Fluid Monocytes 58 % 01/08/19 16:28 Fluid Eosinophils 1 % 01/08/19 16:28 Fluid Other Cells 2 01/08/19 16:28 Fluid Comment 01/08/19 16:28 Random Vancomycin 6.3 mcg/mL 12/31/18 11:00 Hepatitis B Antibody Not immune (Immune) A 12/31/18 11:00 Hep Bs Antigen Negative (Negative) 12/31/18 11:00 Microbiology 01/06/19 12:01 Anaerobic Culture - Final Wound No Growth Day 4 01/06/19 12:01 Skin and Soft Tissue MRSA/MSSA (PCR - Final Foot Left Mrsa Negative S.aureus Positive Gram Stain - Final Wound Culture - Final No Growth Day 4 01/08/19 16:28 Sterile Body Fluid Culture - Preliminary Peritoneal Fluid No Growth Day 1 Sterile Body Fluid Culture - Preliminary No Growth Day 1 01/08/19 16:28 Gram Stain - Final Body Fluid 01/03/19 10:13 Gram Stain - Final Foot Left Wound Culture - Final Staphylococcus Aureus 12/29/18 14:15 Aerobic Blood Culture - Final Blood Venous No Growth Day 5 Anaerobic Blood Culture - Final No Growth Day 5 12/29/18 16:00 Gram Stain - Final Foot Left Wound Culture - Final Staphylococcus Aureus Normal Jero 12/29/18 16:00 Skin and Soft Tissue MRSA/MSSA (PCR - Final Foot Left Mrsa Negative S.aureus Negative Gram Stain - Final Wound Culture - Final Normal Jero Assessment: 1. Left foot cellulitis with possible osteomyelitis. Initial left foot wound culture with normal jero. Repeat culture on 01/03 with staph aureus. S/P left foot I+D and excision of 5th metatarsal base, POD # 4. Cultures obtained in the OR on 01/06 with PCR positive for staph aureus and no growth on day 4. Afebrile and no leukocytosis. 2. DM2 with neuropathy. 3. ESRD on hemodialysis. Plan: Continue Cefazolin for now. Further recommendations will be based on clinical course.
[2019-01-10 10:28] LABS: ALT < 3 U/L (7-52); AST 12 U/L (13-39); Albumin 2.7 g/dL (3.2-5.2); Albumin/Globulin Ratio 0.8 (1-3); Alkaline Phosphatase 99 U/L (34-104); Anion Gap 11 mmol/L (2-11); BUN/Creatinine Ratio 7.9 (8-20); Blood Urea Nitrogen 50 mg/dL (6-24); C Reactive Protein 242.28 mg/L (<8.01); CO2 Carbon Dioxide 26 mmol/L (22-32); Calcium 8.2 mg/dL (8.6-10.3); Chloride 95 mmol/L (101-111); EGFR African American 10.5 (>60); EGFR Non-African American 8.7 (>60); Globulin 3.2 g/dL (2-4); Glucose 127 mg/dL (70-100); Potassium 4.2 mmol/L (3.5-5.0); Sodium 132 mmol/L (135-145); Total Protein 5.9 g/dL (6.4-8.9)
--- NOTE | 2019-01-10 11:33 | PN ---
Progress Note - Progress Note Date of Service: 01/10/19 SOAP: Subjective: []Pt seen in dialysis suite today, He reports pain of his left foot that is worse than yesterday. Denies feeling of fever or chills. Objective: []General: NAD LLE: Left foot with incision CDI, minimal erythema surrounding and no discharge. Patient is exquisitely tender to palpation surrounding the wound, no fluctuance. Heel ulcer dry, no erythema or tenderness. Assessment: []1. Left foot irrigation and debridement 2. Excision of left 5th metatarsal base POD #4 Plan: Continue Clindamycin IV abx Cont NWB LLE Dr Solomon also examined the patient, NPO at midnight due to increased tenderness, increased CRP. If tenderness does not improve will consider I&D tomorrow. Vital Signs Temp 97.3 F 01/10/19 07:15 Pulse 48 01/10/19 07:15 Resp 18 01/10/19 08:48 BP 105/48 01/10/19 07:15 Pulse Ox 94 01/10/19 07:15 Intake & Output 01/09/19 01/10/19 01/10/19 18:59 06:59 18:59 Intake Total 1140 240 120 Output Total 400 Balance 1140 -160 120 Weight 208 lb 1.6 oz 207 lb 6.4 oz Intake: Oral 1140 240 120 Output: Urine 400 Other: Estimated Void Small Date of Last Bowel 01/07/19 unknown Movement # Bowel Movements 0 1 Estimated Stool Amount Large # Voids 1 0 Laboratory Last Values WBC 6.9 10^3/uL (3.5-10.8) 01/10/19 09:57 RBC 3.32 10^6 /uL (4.18-5.48) L 01/10/19 09:57 Hgb 10.3 g/dL (14.0-18.0) L 01/10/19 09:57 Hct 31 % (42-52) L 01/10/19 09:57 MCV 93 fL (80-94) 01/10/19 09:57 MCH 31 pg (27-31) 01/10/19 09:57 MCHC 33 g/dL (31-36) 01/10/19 09:57 RDW 14 % (10-15) 01/10/19 09:57 Plt Count 212 10^3/uL (150-450) 01/10/19 09:57 MPV 7.1 fL (7.4-10.4) L 01/10/19 09:57 Neut % (Auto) 82.2 % 01/10/19 09:57 Lymph % (Auto) 7.6 % 01/10/19 09:57 [place] % (Auto) 7.6 % 01/10/19 09:57 Eos % (Auto) 1.9 % 01/10/19 09:57 Baso % (Auto) 0.7 % 01/10/19 09:57 Absolute Neuts (auto) 5.7 10^3/ul (1.5-7.7) 01/10/19 09:57 Absolute Lymphs (auto) 0.5 10^3/ul (1.0-4.8) L 01/10/19 09:57 Absolute Monos (auto) 0.5 10^3/ul (0-0.8) 01/10/19 09:57 Absolute Eos (auto) 0.1 10^3/ul (0-0.6) 01/10/19 09:57 Absolute Basos (auto) 0.0 10^3/ul (0-0.2) 01/10/19 09:57 Absolute Nucleated RBC 0.0 10^3/ul 01/10/19 09:57 Nucleated RBC % 0.0 01/10/19 09:57 INR (Anticoag Therapy) 1.27 (0.82-1.09) H 01/06/19 06:14 Sodium 132 mmol/L (135-145) L 01/10/19 09:57 Potassium 4.2 mmol/L (3.5-5.0) 01/10/19 09:57 Chloride 95 mmol/L (101-111) L 01/10/19 09:57 Carbon Dioxide 26 mmol/L (22-32) 01/10/19 09:57 Anion Gap 11 mmol/L (2-11) 01/10/19 09:57 BUN 50 mg/dL (6-24) H 01/10/19 09:57 Creatinine 6.31 mg/dL (0.67-1.17) H 01/10/19 09:57 1/Creatinine 0.17 01/03/19 08:24 Est GFR ( Amer) 10.5 (>60) 01/10/19 09:57 Est GFR (Non-Af Amer) 8.7 (>60) 01/10/19 09:57 BUN/Creatinine Ratio 7.9 (8-20) L 01/10/19 09:57 Glucose 127 mg/dL (70-100) H 01/10/19 09:57 POC Glucose (mg/dL) 131 mg/dL (70-100) H 01/10/19 07:16 Lactic Acid 2.2 mmol/L (0.5-2.0) H* 12/29/18 14:16 Calcium 8.2 mg/dL (8.6-10.3) L 01/10/19 09:57 Phosphorus 5.5 mg/dL (2.5-5.0) H 01/03/19 08:24 Magnesium 2.3 mg/dL (1.9-2.7) 01/03/19 08:24 Total Bilirubin 0.50 mg/dL (0.2-1.0) 01/10/19 09:57 Direct Bilirubin 0.20 mg/dL (0.03-0.18) H 01/08/19 06:31 Indirect Bilirubin 0.4 mg/dL (0.3-1.0) 01/08/19 06:31 AST 12 U/L (13-39) L 01/10/19 09:57 ALT < 3 U/L (7-52) L 01/10/19 09:57 Alkaline Phosphatase 99 U/L (34-104) 01/10/19 09:57 C-Reactive Protein 242.28 mg/L (<8.01) H 01/10/19 09:57 Total Protein 5.9 g/dL (6.4-8.9) L 01/10/19 09:57 Albumin 2.7 g/dL (3.2-5.2) L 01/10/19 09:57 Globulin 3.2 g/dL (2-4) 01/10/19 09:57 Albumin/Globulin Ratio 0.8 (1-3) L 01/10/19 09:57 Fluid Source Peritonial fluid 01/08/19 16:28 Fluid Volume 50.0 mL 01/08/19 16:28 Fluid Color Yellow 01/08/19 16:28 Fluid Appearance Clear 01/08/19 16:28 Fluid WBC 358 /mcL ([id number]) 01/08/19 16:28 Fluid RBC 313 /mcL 01/08/19 16:28 Fluid Tot Cell Count 100 01/08/19 16:28 Fluid Neutrophils 36 % 01/08/19 16:28 Fluid Band Neutrophils 1 % 01/08/19 16:28 Fluid Lymphocytes 4 % 01/08/19 16:28 Fluid Monocytes 58 % 01/08/19 16:28 Fluid Eosinophils 1 % 01/08/19 16:28 Fluid Other Cells 2 01/08/19 16:28 Fluid Cell Count Rvw By 01/08/19 16:28 Fluid Comment 01/08/19 16:28 Random Vancomycin 6.3 mcg/mL 12/31/18 11:00 Hepatitis B Antibody Not immune (Immune) A 12/31/18 11:00 Hep Bs Antigen Negative (Negative) 12/31/18 11:00
[2019-01-10] MEDS ORDERED: EPOETIN ALFA-EPBX * 3,000 UNIT/ML VIAL IV ONE (12:00)
[2019-01-10] MEDS ORDERED: EPOETIN ALFA-EPBX * 2,000 UNIT/ML VIAL IV ONE (12:00)
[2019-01-10] MEDS ORDERED: Heparin DIALYSIS ONLY(*) 1,000 UNITS/ML VIAL DIALYSIS ONE (12:00)
[2019-01-10] MEDS ORDERED: HYDROcodone/ACETAMIN 5-325 MG* 1 TAB PO ONE (12:07)
[2019-01-10] MEDS: ceFAZolin 1 GM ADVAN(*) 1 GM in NS 0.9% 50 ML* 50 ML IVPB SCH (14:40)
--- NOTE | 2019-01-10 16:32 | PN ---
Subjective Interval History: no acute events overnight and is very discouraged when he hears that he may need additional washour intervention on the foot. it is not clear that he has been following NWB status on the left leg - "there is no way I could get out of this bed if I don't put weight on it" (unclear if talking in present or future tense) feels "so-so". No N/V but did spit up some of his pudding (though usually has that reaction to pudding) foot throbbing consistently at 7/10 well before next norco due so pain meds changed to q4 from q6 abd more distended had HD - uneventful had very large BM yesterday. Family History: Unchanged from Admission Social History: Unchanged from Admission Past Medical History: Unchanged from Admission Objective Active Medications: Acetaminophen (Tylenol Tab*) 650 mg PO Q4H PRN PRN Reason: FEVER/PAIN Last Admin: 01/10/19 07:31 Dose: 650 mg Hydrocodone Bitart/Acetaminophen ([place] 5-325 Tab*) 2 tab PO Q4H PRN PRN Reason: PAIN Last Admin: 01/10/19 15:02 Dose: 2 tab Aspirin (Aspirin 81 Mg Chew Tab*) 81 mg PO DAILY [facility] Last Admin: 01/10/19 07:31 Dose: 81 mg Atorvastatin Calcium (Lipitor*) 80 mg PO QAM [facility] Last Admin: 01/10/19 07:31 Dose: 80 mg Calcium Carbonate (Tums*) 500 mg PO Q4H PRN PRN Reason: INDIGESTION Last Admin: 12/30/18 14:18 Dose: 500 mg Dextrose (D50w Syringe 50 Ml*) 12.5 gm IV PUSH .FOR FS < 60 - SS PRN PRN Reason: FS < 60 Docusate Sodium (Colace Cap*) 100 mg PO BID [facility] Last Admin: 01/10/19 07:31 Dose: Not Given Gemfibrozil (Lopid Tab*) 600 mg PO BID [facility] Last Admin: 01/10/19 07:31 Dose: 600 mg Heparin Sodium (Porcine) (Heparin Vial(*)) 5,000 units SUBCUT Q8HR [facility] Last Admin: 01/10/19 15:02 Dose: 5,000 units Sodium Chloride (Ns 0.45% 1000 Ml Bag*) 1,000 mls @ 0 mls/hr IV KVO [facility] Cefazolin Sodium 1 gm/ Sodium (Chloride) 50 mls @ 200 mls/hr IVPB Q24H [facility] Last Admin: 01/10/19 14:40 Dose: 200 mls/hr Insulin Human Lispro (Humalog*) 0 units SUBCUT AC [facility]; Protocol Last Admin: 01/10/19 12:28 Dose: Not Given Magnesium Hydroxide (Milk Of Magnesia Liq*) 30 ml PO BID PRN PRN Reason: CONSTIPATION Metoprolol Succinate (Toprol Xl Tab*) 25 mg PO QAM [facility] Last Admin: 01/10/19 07:32 Dose: Not Given Ondansetron HCl (Zofran Inj*) 4 mg IV Q6H PRN PRN Reason: NAUSEA Ondansetron HCl (Zofran Odt Tab*) 4 mg SL Q6H PRN PRN Reason: NAUSEA/VOMITING Last Admin: 01/09/19 09:37 Dose: 4 mg Pantoprazole Sodium (Protonix Tab*) 40 mg PO DAILY [facility] Last Admin: 01/10/19 07:31 Dose: 40 mg Polyethylene Glycol/Electrolytes (Miralax*) 17 gm PO DAILY PRN PRN Reason: CONSTIPATION Senna (Senokot Tab*) 1 tab PO BEDTIME PRN PRN Reason: CONSTIPATION Sevelamer Carbonate (Renvela Tab*) 1,600 mg PO [id number] [facility] Last Admin: 01/10/19 12:24 Dose: 1,600 mg Vital Signs - 8 hr 01/10/19 01/10/19 01/10/19 08:48 12:23 15:02 Respiratory 18 18 16 Rate Oxygen Devices in Use Now: None Appearance: NAD, dejected mood Eyes: No Scleral Icterus Ears/Nose/Mouth/Throat: NL Teeth, Lips, Gums Neck: NL Appearance and Movements; NL JVP Respiratory: - - rales at left base, no rhonchi or wheezing. Cardiovascular: NL Sounds; No Murmurs; No JVD, RRR Abdominal: - - soft, nontender, more distended today than yesterday (but still markedly better than two days ago before para) Extremities: - - 1+ on right. LLE wrapped in gauze Skin: - - no rashes Neurological: Alert and Oriented x 3, NL Sensation Nutrition: Taking PO's Result Diagrams: 01/10/19 09:57 01/10/19 09:57 Additional Lab and Data: Laboratory Results - last 24 hr 01/08/19 01/09/19 01/10/19 16:28 17:31 07:16 WBC RBC Hgb Hct MCV MCH MCHC RDW Plt Count MPV Neut % (Auto) Lymph % (Auto) [place] % (Auto) Eos % (Auto) Baso % (Auto) Absolute Neuts (auto) Absolute Lymphs (auto) Absolute Monos (auto) Absolute Eos (auto) Absolute Basos (auto) Absolute Nucleated RBC Nucleated RBC % Sodium Potassium Chloride Carbon Dioxide Anion Gap BUN Creatinine Est GFR ( Amer) Est GFR (Non-Af Amer) BUN/Creatinine Ratio Glucose POC Glucose (mg/dL) 141 H 131 H Calcium Total Bilirubin AST ALT Alkaline Phosphatase C-Reactive Protein Total Protein Albumin Globulin Albumin/Globulin Ratio Fluid Cell Count Rvw By 01/10/19 01/10/19 01/10/19 09:57 09:57 12:27 WBC 6.9 RBC 3.32 L Hgb 10.3 L Hct 31 L MCV 93 MCH 31 MCHC 33 RDW 14 Plt Count 212 MPV 7.1 L Neut % (Auto) 82.2 Lymph % (Auto) 7.6 [place] % (Auto) 7.6 Eos % (Auto) 1.9 Baso % (Auto) 0.7 Absolute Neuts (auto) 5.7 Absolute Lymphs (auto) 0.5 L Absolute Monos (auto) 0.5 Absolute Eos (auto) 0.1 Absolute Basos (auto) 0.0 Absolute Nucleated RBC 0.0 Nucleated RBC % 0.0 Sodium 132 L Potassium 4.2 Chloride 95 L Carbon Dioxide 26 Anion Gap 11 BUN 50 H Creatinine 6.31 H Est GFR ( Amer) 10.5 Est GFR (Non-Af Amer) 8.7 BUN/Creatinine Ratio 7.9 L Glucose 127 H POC Glucose (mg/dL) 127 H Calcium 8.2 L Total Bilirubin 0.50 AST 12 L ALT < 3 L Alkaline Phosphatase 99 C-Reactive Protein 242.28 H Total Protein 5.9 L Albumin 2.7 L Globulin 3.2 Albumin/Globulin Ratio 0.8 L Fluid Cell Count Rvw By 01/10/19 16:19 WBC RBC Hgb Hct MCV MCH MCHC RDW Plt Count MPV Neut % (Auto) Lymph % (Auto) [place] % (Auto) Eos % (Auto) Baso % (Auto) Absolute Neuts (auto) Absolute Lymphs (auto) Absolute Monos (auto) Absolute Eos (auto) Absolute Basos (auto) Absolute Nucleated RBC Nucleated RBC % Sodium Potassium Chloride Carbon Dioxide Anion Gap BUN Creatinine Est GFR ( Amer) Est GFR (Non-Af Amer) BUN/Creatinine Ratio Glucose POC Glucose (mg/dL) 168 H Calcium Total Bilirubin AST ALT Alkaline Phosphatase C-Reactive Protein Total Protein Albumin Globulin Albumin/Globulin Ratio Fluid Cell Count Rvw By Microbiology and Other Data: Microbiology 01/06/19 12:01 Wound Anaerobic Culture - Preliminary No Growth Day 3 01/06/19 12:01 Foot Left Skin and Soft Tissue MRSA/MSSA (PCR - Final Mrsa Negative S.aureus Positive 01/06/19 12:01 Foot Left Gram Stain - Final 01/06/19 12:01 Foot Left Wound Culture - Preliminary No Growth Day 3 01/08/19 16:28 Body Fluid Gram Stain - Final 01/03/19 10:13 Foot Left Gram Stain - Final 01/03/19 10:13 Foot Left Wound Culture - Final Staphylococcus Aureus 12/29/18 14:15 Blood Venous Aerobic Blood Culture - Final No Growth Day 5 12/29/18 14:15 Blood Venous Anaerobic Blood Culture - Final No Growth Day 5 12/29/18 16:00 Foot Left Gram Stain - Final 12/29/18 16:00 Foot Left Wound Culture - Final Staphylococcus Aureus Normal Nadja 12/29/18 16:00 Foot Left Skin and Soft Tissue MRSA/MSSA (PCR - Final Mrsa Negative S.aureus Negative 12/29/18 16:00 Foot Left Gram Stain - Final 12/29/18 16:00 Foot Left Wound Culture - Final Normal Nadja Diagnostic Imagin02/11/18 - VL ANK/BRACHIAL INDICES: Ankle-brachial indices: Right: Value (SBP) Index Brachial: 164 Posterior tibialis: Noncompressible Dorsalis pedis: Noncompressible Digit: 56 0.33 Left: Value (SBP) Index Brachial: 172 Posterior tibialis: Noncompressible Dorsalis pedis: Noncompressible Digit: 47 0.27 Doppler waveforms (acquired at rest): In the interrogated lower extremity arteries, Doppler waveforms are monophasic and the bilateral lower extremities with notably reduced amplitude at the right posterior tibial artery. Volume pulse recordings (acquired at rest): Volume pulse recordings measures 17 mm on the right and 35 mm on the left, a significant discrepancy indicating relatively decreased flow in the right ankle relative to the left. IMPRESSION: 1. Noncompressibility of the pedal arteries is consistent with advanced calcified atherosclerosis. 2. Values measured at the bilateral digits are consistent with rest pain. 3. The arterial waveforms measured at the bilateral feet and ankles are greatly attenuated and arranged indicating arterial insufficiency. 02/11/181933 - CTA ABD AORTA & RUNOFF: IMPRESSION: ABDOMINAL AORTA: #. Normal diameter abdominal aorta without evidence for dissection or hemodynamic significant stenosis. RIGHT ILIAC and LOWER EXTREMITY ARTERIES: #. 80% short segment stenosis at the RIGHT common iliac artery. #. 70% stenosis at the RIGHT superficial femoral artery. #. 50% stenosis at the RIGHT SFA at the adductor canal. #. Marked high-grade stenosis at the distal RIGHT popliteal artery. #. Suggestion of limited three-vessel runoff to the RIGHT ankle. LEFT ILIAC and LOWER EXTREMITY ARTERIES: #. Up to 60% stenosis at the mid segment of the LEFT superficial femoral artery. #. Up to 50% short segment stenosis at the infrageniculate LEFT popliteal artery. #. Suggestion of limited three-vessel runoff to the LEFT ankle. 12/29/181631 - MRI LOWER EXTREMITY LEFT W/O IMPRESSION: 1. Motion artifact is problematic on several sequences. 2. 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 No acute fracture. 3. Detail of the great toe is limited. There appears to be infiltrative change suggesting cellulitis distally. There is not a definite visualized abscess, nor is there current convincing evidence for osteomyelitis. 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 MSSA from cultures on cefazolin. 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 Moderate-Large ascites noted (new) s/p 8L para 01/08. Possible additional I&D plannced 01/11 given increased tenderness, elevated CRP. - Patient Problems (1) Subacute osteomyelitis, left ankle and foot Current Visit: Yes Status: Acute Priority: High Code(s): M86.272 - SUBACUTE OSTEOMYELITIS, LEFT ANKLE AND FOOT SNOMED Code(s): 57050886 Comment: -Appreciate ID and wound consult, will continue clindamycin until new bone/operative culture and sensitivities come back (with non mrsa staph on PCR but Cx NGTD x4 and pathology still pending. ) -s/p left 5th metatarsal base amputatoin with Dr. Matias 12/06. NWB, - continue ancef for now. Possibly could get on HD days (with temp PIV each session) as he can't get a PICC given ESRD. -PT today - was unable to maintain NWB LLE despite repeated cues. (2) Ascites Current Visit: Yes Status: Acute Code(s): R18.8 - OTHER ASCITES SNOMED Code(s): 323734312 Comment: Pt had evidence of volume overload on CXR and moderate to large ascites on limited US. s/p 8L para 01/08. f/u ascites albumin(unfortunately a send-out to [place], total protein, cell counts (no e/o SBP though also on clinda), GS (no orgs), culture to help determine etiology of the ascites. May just be dialysis related. Has not had previous e/o liver cirrhosis on prior CT abd scans. Add cytology analysis if able. (3) Coronary artery disease Current Visit: Yes Status: Acute Code(s): I25.10 - ATHSCL HEART DISEASE OF [place] CORONARY ARTERY W/O ANG PCTRS SNOMED Code(s): 49266008 Comment: No c/o chest pain. Continue ASA, lipitor and gemfibrozil. (4) ESRD (end stage renal disease) Current Visit: Yes Status: Acute Priority: Medium Code(s): N18.6 - END STAGE RENAL DISEASE SNOMED Code(s): 55248573 Comment: -Continue MWF dialysis. -Dr. Martínez consult appreciated. - of note target weight will have to be adjusted ~20lbs given the 8L volume removed. (5) HTN (hypertension) Current Visit: Yes Status: Chronic Priority: High Code(s): I10 - ESSENTIAL (PRIMARY) HYPERTENSION SNOMED Code(s): 55438135 Comment: BP low normal. Continue metoprolol with hold parameters. s/p 01/08 albumin 50gm given after the 8L para removed. (6) Type 2 diabetes mellitus Current Visit: Yes Status: Chronic Priority: Medium Comment: -Diabetes under good control. -Continue lispro sliding scale. Status and Disposition: inpatient, awaiting PT eval, final antibiotic recs. Ortho still doing debridements
[2019-01-11] MEDS: Heparin VIAL(*) 5000 UNITS/ML VIAL (FIVE THOUSAND) SUBCUT SCH ×3 (04:34→20:19)
[2019-01-11] MEDS: HYDROcodone/ACETAMIN 5-325 MG* 1 TAB PO PRN ×3 (05:08→22:52)
[2019-01-11 07:55] LABS: ABS Basophils 0.1 10^3/ul (0-0.2); ABS Eosinophils 0.2 10^3/ul (0-0.6); ABS Lymphocytes 0.6 10^3/ul (1.0-4.8); ABS Monocytes 0.7 10^3/ul (0-0.8); ABS Neutrophils 4.1 10^3/ul (1.5-7.7); Eosinophil % 3.1 %; Hematocrit 31 % (42-52); Hemoglobin 10.7 g/dL (14.0-18.0); Mean Corpuscular HGB Conc 34 g/dL (31-36); Mean Corpuscular Hemoglobin 32 pg (27-31); Mean Corpuscular Volume 92 fL (80-94); Mean Platelet Volume 7.1 fL (7.4-10.4); Platelet Count 220 10^3/uL (150-450); Red Blood Count 3.39 10^6 /uL (4.18-5.48); Red Cell Distribution Width 14 % (10-15); White Blood Count 5.6 10^3/uL (3.5-10.8)
[2019-01-11 08:09] LABS: BUN/Creatinine Ratio 6.8 (8-20); C Reactive Protein 255.64 mg/L (<8.01); Calcium 8.3 mg/dL (8.6-10.3); EGFR African American 13.7 (>60); EGFR Non-African American 11.3 (>60); Potassium 3.7 mmol/L (3.5-5.0)
[2019-01-11] MEDS: Insulin LISPRO* 1 UNITS UNIT SUBCUT SCH ×3 (09:37→17:50)
[2019-01-11] MEDS: Atorvastatin* 80 MG TAB PO SCH (09:38)
[2019-01-11] MEDS: Sevelamer TAB* 800 MG PO SCH ×3 (09:38→17:51)
[2019-01-11] MEDS: Metoprolol Succinate XL TAB* 25 MG PO SCH (09:38)
[2019-01-11] MEDS: Aspirin 81 mg CHEW TAB* 81 MG TAB.CHEW PO SCH (09:39)
[2019-01-11] MEDS: Gemfibrozil TAB* 600 MG PO SCH ×2 (09:39→20:19)
[2019-01-11] MEDS: Docusate CAP* 100 MG PO SCH ×3 (09:39→20:22)
[2019-01-11] MEDS: Pantoprazole TAB * 40 MG TAB PO SCH (09:39)
[2019-01-11] MEDS ORDERED: Buffered Lidocaine 1% SYRIN* 1 ML/SYRINGE INTRADERM ONE (12:42)
[2019-01-11] MEDS ORDERED: Ondansetron TAB* 4 MG PO ONE (12:42)
[2019-01-11] MEDS ORDERED: fentaNYL* 50 MCG/ML 2 ML VIAL (100 MCG VIAL) ONE (13:32)
[2019-01-11] MEDS ORDERED: KETAMINE HCL* 50 MG/ML 10 ML VIAL ONE (13:32)
[2019-01-11] MEDS ORDERED: Midazolam* 1 MG/ML 5 ML VIAL (5 MG) ONE (13:32)
[2019-01-11] MEDS: ceFAZolin 1 GM ADVAN(*) 1 GM in NS 0.9% 50 ML* 50 ML IVPB SCH (13:40)
[2019-01-11] MEDS ORDERED: Ondansetron ODT TAB* 4 MG ONE (13:49)
[2019-01-11] MEDS ORDERED: Bupivacaine 0.5%* 50 ML VIAL ONE (14:13)
[2019-01-11] MEDS ORDERED: Lidocaine 2% PF* 10 ML AMP ONE (14:14)
[2019-01-11] MEDS: Ondansetron ODT TAB* 4 MG SL PRN (14:24)
[2019-01-11] MEDS ORDERED: Propofol* 10 MG/ML 20 ML BTL ONE (15:05)
[2019-01-11] MEDS ORDERED: Phenylephrine 40 MCG/ML SYRINGE ONE (15:05)
[2019-01-11] MEDS ORDERED: EPHEDrine (Pressors)* 50 MG/ML VIAL ONE (15:06)
[2019-01-11] MEDS ORDERED: Naloxone* 0.4 MG/ML 1 ML VIAL IV PRN (15:09)
[2019-01-11] MEDS ORDERED: Morphine 4 MG/ML VIAL (1 ml) 4 MG/ML VIAL IV PRN (15:09)
--- NOTE | 2019-01-11 18:35 | PN ---
Subjective Date of Service: 01/11/19 Interval History: patient seen in room, still complaining of foot pain, scheduled for repeat I&D today. no acute events overnight Past Medical History: Unchanged from Admission Objective Active Medications: Acetaminophen (Tylenol Tab*) 650 mg PO Q4H PRN PRN Reason: FEVER/PAIN Last Admin: 01/10/19 07:31 Dose: 650 mg Hydrocodone Bitart/Acetaminophen ([place] 5-325 Tab*) 2 tab PO Q4H PRN PRN Reason: PAIN Last Admin: 01/11/19 17:57 Dose: 2 tab Aspirin (Aspirin 81 Mg Chew Tab*) 81 mg PO DAILY [facility] Last Admin: 01/11/19 09:39 Dose: 81 mg Atorvastatin Calcium (Lipitor*) 80 mg PO QAM [facility] Last Admin: 01/11/19 09:38 Dose: 80 mg Calcium Carbonate (Tums*) 500 mg PO Q4H PRN PRN Reason: INDIGESTION Last Admin: 12/30/18 14:18 Dose: 500 mg Dextrose (D50w Syringe 50 Ml*) 12.5 gm IV PUSH .FOR FS < 60 - SS PRN PRN Reason: FS < 60 Docusate Sodium (Colace Cap*) 100 mg PO BID [facility] Last Admin: 01/11/19 09:39 Dose: Not Given Gemfibrozil (Lopid Tab*) 600 mg PO BID [facility] Last Admin: 01/11/19 09:39 Dose: 600 mg Heparin Sodium (Porcine) (Heparin Vial(*)) 5,000 units SUBCUT Q8HR [facility] Last Admin: 01/11/19 12:43 Dose: Not Given Sodium Chloride (Ns 0.45% 1000 Ml Bag*) 1,000 mls @ 0 mls/hr IV KVO [facility] Stop: 01/12/19 05:59 Last Admin: 01/11/19 14:24 Dose: 10 mls/hr Cefazolin Sodium 1 gm/ Sodium (Chloride) 50 mls @ 200 mls/hr IVPB Q24H [facility] Last Admin: 01/11/19 13:40 Dose: 200 mls/hr Lactated Ringer's (Lactated Ringers 1000 Ml Bag*) 1,000 mls @ 125 mls/hr IV PER RATE [facility] Sodium Chloride (Ns 0.45% 1000 Ml Bag*) 1,000 mls @ 0 mls/hr IV KVO [facility] Insulin Human Lispro (Humalog*) 0 units SUBCUT [facility]; Protocol Last Admin: 01/11/19 17:50 Dose: Not Given Magnesium Hydroxide (Milk Of Magnesia Liq*) 30 ml PO BID PRN PRN Reason: CONSTIPATION Metoprolol Succinate (Toprol Xl Tab*) 25 mg PO QAM [facility] Last Admin: 01/11/19 09:38 Dose: 25 mg Ondansetron HCl (Zofran Inj*) 4 mg IV Q6H PRN PRN Reason: NAUSEA Ondansetron HCl (Zofran Odt Tab*) 4 mg SL Q6H PRN PRN Reason: NAUSEA/VOMITING Last Admin: 01/11/19 14:24 Dose: 4 mg Pantoprazole Sodium (Protonix Tab*) 40 mg PO DAILY [facility] Last Admin: 01/11/19 09:39 Dose: 40 mg Polyethylene Glycol/Electrolytes (Miralax*) 17 gm PO DAILY PRN PRN Reason: CONSTIPATION Senna (Senokot Tab*) 1 tab PO BEDTIME PRN PRN Reason: CONSTIPATION Sevelamer Carbonate (Renvela Tab*) 1,600 mg PO [id number] [facility] Last Admin: 01/11/19 17:51 Dose: 1,600 mg Vital Signs - 8 hr 01/11/19 01/11/19 01/11/19 11:15 14:18 14:26 Temperature 97.4 F 97.7 F 97.7 F Pulse Rate 57 54 54 Respiratory 16 16 16 Rate Blood Pressure 113/52 102/50 102/50 (mmHg) O2 Sat by Pulse 98 99 99 Oximetry 01/11/19 01/11/19 01/11/19 15:25 15:30 15:35 Temperature 97.2 F Pulse Rate 67 69 66 Respiratory 17 14 16 Rate Blood Pressure 104/53 109/67 (mmHg) O2 Sat by Pulse 100 100 100 Oximetry 01/11/19 01/11/19 01/11/19 15:45 16:00 16:24 Temperature 97.2 F Pulse Rate 64 61 60 Respiratory 8 13 18 Rate Blood Pressure 117/54 104/66 110/46 (mmHg) O2 Sat by Pulse 100 99 99 Oximetry 01/11/19 01/11/19 17:02 17:57 Temperature 97.7 F Pulse Rate 60 Respiratory 20 20 Rate Blood Pressure 122/64 (mmHg) O2 Sat by Pulse 100 Oximetry Oxygen Devices in Use Now: Simple Face Mask Appearance: awake, alert no distress Eyes: No Scleral Icterus, - - EOMI Ears/Nose/Mouth/Throat: NL Teeth, Lips, Gums, Mucous Membranes Moist Neck: NL Appearance and Movements; NL JVP, Trachea Midline Respiratory: Symmetrical Chest Expansion and Respiratory Effort, Clear to Auscultation Cardiovascular: NL Sounds; No Murmurs; No JVD, No Edema Abdominal: NL Sounds; No Tenderness; No Distention Extremities: - - Left foot erythema, dressing in place. wound not visualized Result Diagrams: 01/11/19 07:43 01/11/19 07:43 Additional Lab and Data: Laboratory Results - last 24 hr 01/08/19 01/09/19 01/10/19 16:28 17:31 07:16 WBC RBC Hgb Hct MCV MCH MCHC RDW Plt Count MPV Neut % (Auto) Lymph % (Auto) Gall[place] % (Auto) Eos % (Auto) Baso % (Auto) Absolute Neuts (auto) Absolute Lymphs (auto) Absolute Monos (auto) Absolute Eos (auto) Absolute Basos (auto) Absolute Nucleated RBC Nucleated RBC % Sodium Potassium Chloride Carbon Dioxide Anion Gap BUN Creatinine Est GFR ( Amer) Est GFR (Non-Af Amer) BUN/Creatinine Ratio Glucose POC Glucose (mg/dL) 141 H 131 H Calcium Total Bilirubin AST ALT Alkaline Phosphatase C-Reactive Protein Total Protein Albumin Globulin Albumin/Globulin Ratio Fluid Cell Count Rvw By 01/10/19 01/10/19 01/10/19 09:57 09:57 12:27 WBC 6.9 RBC 3.32 L Hgb 10.3 L Hct 31 L MCV 93 MCH 31 MCHC 33 RDW 14 Plt Count 212 MPV 7.1 L Neut % (Auto) 82.2 Lymph % (Auto) 7.6 Gallia % (Auto) 7.6 Eos % (Auto) 1.9 Baso % (Auto) 0.7 Absolute Neuts (auto) 5.7 Absolute Lymphs (auto) 0.5 L Absolute Monos (auto) 0.5 Absolute Eos (auto) 0.1 Absolute Basos (auto) 0.0 Absolute Nucleated RBC 0.0 Nucleated RBC % 0.0 Sodium 132 L Potassium 4.2 Chloride 95 L Carbon Dioxide 26 Anion Gap 11 BUN 50 H Creatinine 6.31 H Est GFR ( Amer) 10.5 Est GFR (Non-Af Amer) 8.7 BUN/Creatinine Ratio 7.9 L Glucose 127 H POC Glucose (mg/dL) 127 H Calcium 8.2 L Total Bilirubin 0.50 AST 12 L ALT < 3 L Alkaline Phosphatase 99 C-Reactive Protein 242.28 H Total Protein 5.9 L Albumin 2.7 L Globulin 3.2 Albumin/Globulin Ratio 0.8 L Fluid Cell Count Rvw By 01/10/19 16:19 WBC RBC Hgb Hct MCV MCH MCHC RDW Plt Count MPV Neut % (Auto) Lymph % (Auto) [place] % (Auto) Eos % (Auto) Baso % (Auto) Absolute Neuts (auto) Absolute Lymphs (auto) Absolute Monos (auto) Absolute Eos (auto) Absolute Basos (auto) Absolute Nucleated RBC Nucleated RBC % Sodium Potassium Chloride Carbon Dioxide Anion Gap BUN Creatinine Est GFR ( Amer) Est GFR (Non-Af Amer) BUN/Creatinine Ratio Glucose POC Glucose (mg/dL) 168 H Calcium Total Bilirubin AST ALT Alkaline Phosphatase C-Reactive Protein Total Protein Albumin Globulin Albumin/Globulin Ratio Fluid Cell Count Rvw By Microbiology and Other Data: Microbiology 01/06/19 12:01 Wound Anaerobic Culture - Preliminary No Growth Day 3 01/06/19 12:01 Foot Left Skin and Soft Tissue MRSA/MSSA (PCR - Final Mrsa Negative S.aureus Positive 01/06/19 12:01 Foot Left Gram Stain - Final 01/06/19 12:01 Foot Left Wound Culture - Preliminary No Growth Day 3 01/08/19 16:28 Body Fluid Gram Stain - Final 01/03/19 10:13 Foot Left Gram Stain - Final 01/03/19 10:13 Foot Left Wound Culture - Final Staphylococcus Aureus 12/29/18 14:15 Blood Venous Aerobic Blood Culture - Final No Growth Day 5 12/29/18 14:15 Blood Venous Anaerobic Blood Culture - Final No Growth Day 5 12/29/18 16:00 Foot Left Gram Stain - Final 12/29/18 16:00 Foot Left Wound Culture - Final Staphylococcus Aureus Normal Nadja 12/29/18 16:00 Foot Left Skin and Soft Tissue MRSA/MSSA (PCR - Final Mrsa Negative S.aureus Negative 12/29/18 16:00 Foot Left Gram Stain - Final 12/29/18 16:00 Foot Left Wound Culture - Final Normal Nadja Diagnostic Imagin02/11/18 - VL ANK/BRACHIAL INDICES: Ankle-brachial indices: Right: Value (SBP) Index Brachial: 164 Posterior tibialis: Noncompressible Dorsalis pedis: Noncompressible Digit: 56 0.33 Left: Value (SBP) Index Brachial: 172 Posterior tibialis: Noncompressible Dorsalis pedis: Noncompressible Digit: 47 0.27 Doppler waveforms (acquired at rest): In the interrogated lower extremity arteries, Doppler waveforms are monophasic and the bilateral lower extremities with notably reduced amplitude at the right posterior tibial artery. Volume pulse recordings (acquired at rest): Volume pulse recordings measures 17 mm on the right and 35 mm on the left, a significant discrepancy indicating relatively decreased flow in the right ankle relative to the left. IMPRESSION: 1. Noncompressibility of the pedal arteries is consistent with advanced calcified atherosclerosis. 2. Values measured at the bilateral digits are consistent with rest pain. 3. The arterial waveforms measured at the bilateral feet and ankles are greatly attenuated and arranged indicating arterial insufficiency. 02/11/181933 - CTA ABD AORTA & RUNOFF: IMPRESSION: ABDOMINAL AORTA: #. Normal diameter abdominal aorta without evidence for dissection or hemodynamic significant stenosis. RIGHT ILIAC and LOWER EXTREMITY ARTERIES: #. 80% short segment stenosis at the RIGHT common iliac artery. #. 70% stenosis at the RIGHT superficial femoral artery. #. 50% stenosis at the RIGHT SFA at the adductor canal. #. Marked high-grade stenosis at the distal RIGHT popliteal artery. #. Suggestion of limited three-vessel runoff to the RIGHT ankle. LEFT ILIAC and LOWER EXTREMITY ARTERIES: #. Up to 60% stenosis at the mid segment of the LEFT superficial femoral artery. #. Up to 50% short segment stenosis at the infrageniculate LEFT popliteal artery. #. Suggestion of limited three-vessel runoff to the LEFT ankle. 12/29/181631 - MRI LOWER EXTREMITY LEFT W/O IMPRESSION: 1. Motion artifact is problematic on several sequences. 2. 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 No acute fracture. 3. Detail of the great toe is limited. There appears to be infiltrative change suggesting cellulitis distally. There is not a definite visualized abscess, nor is there current convincing evidence for osteomyelitis. 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 MSSA from cultures on cefazolin. 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 Moderate-Large ascites noted (new) s/p 8L para 01/08. Possible additional I&D plannced 01/11 given increased tenderness, elevated CRP. - Patient Problems (1) Ascites Current Visit: Yes Status: Acute Code(s): R18.8 - OTHER ASCITES SNOMED Code(s): 490287957 Comment: - Pt had evidence of volume overload on CXR and moderate to large ascites on limited US. - s/p 8L para 01/08. - May just be dialysis related. 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 Matias 01/06. - For I&D today 01/11/19, I discussed with Ortho (3) ESRD (end stage renal disease) Current Visit: Yes Status: Acute Priority: Medium Code(s): N18.6 - END STAGE RENAL DISEASE SNOMED Code(s): 68227840 Comment: -Continue MWF dialysis. -Dr. Martínez consult appreciated. - I agrtee with Dr. Mendez that his target weight will have to be adjusted ~20lbs given the 8L volume removed. His weight today is down to 206 lbs (4) HTN (hypertension) Current Visit: Yes Status: Chronic Priority: High Code(s): I10 - ESSENTIAL (PRIMARY) HYPERTENSION SNOMED Code(s): 20623221 Comment: - BP low normal. This am BP 110/43. - Continue metoprolol with hold parameters. - s/p 01/08 albumin 50gm given after the 8L para removed. (5) Type 2 diabetes mellitus Current Visit: Yes Status: Chronic Priority: Medium Comment: - Diabetes under good control. - Continue lispro sliding scale. (6) DVT prophylaxis Current Visit: Yes Status: Acute Priority: Low Code(s): WVX6105 - SNOMED Code(s): 412518790 Comment: SQ heparin Status and Disposition: inpatient, awaiting PT eval, final antibiotic recs. Ortho still doing debridements
--- NOTE | 2019-01-11 18:50 | OP ---
OPERATIVE REPORT: DATE OF OPERATION: 01/11/19 - Inpatient, room 421-01. DATE OF : 43 SURGEON: Byron Solomon MD. PRE-OP DIAGNOSIS: Recurrent infection left lateral mid foot. POST-OP DIAGNOSIS: Recurrent infection left lateral mid foot. OPERATIVE PROCEDURE: Extensive debridement left lateral mid foot with ostectomy , partial cuboid resection, irrigation, debridement and VAC dressing. DESCRIPTION OF PROCEDURE: The patient was taken to the operating room where we opened up the previous surgery scars removing the sutures, the wound gapped freely with a large expression of what looked like hematoma. There was necrotic muscle mostly plantarward and the bone that was visible in the depth of wound appeared somewhat mushy. I used the 1/2-inch curved osteotome to remove the lateral border of this bone which I believed to be the cuboid, also debrided all the skin edges with a 10-blade as well as all the necrotic fat tissue. 3 L pulsatile lavage was performed as well as deep culture sent. After hemostasis was obtained with the tourniquet dropped, I placed a VAC dressing over the wound connecting this to 125 mm suction and a compression dressing. The patient was then transferred. [id number]/CPS #: [id number] [facility] CENTERCarolyne
[2019-01-12] MEDS: HYDROcodone/ACETAMIN 5-325 MG* 1 TAB PO PRN ×4 (04:43→22:01)
[2019-01-12] MEDS: Heparin VIAL(*) 5000 UNITS/ML VIAL (FIVE THOUSAND) SUBCUT SCH ×3 (04:45→20:37)
[2019-01-12] MEDS ORDERED: NS 0.45% 1000 ML BAG* 1,000 ML IV SCH (06:00)
[2019-01-12] MEDS ORDERED: Lactated Ringers 1000 ML Bag* 1,000 ML IV SCH (06:00)
[2019-01-12] MEDS: Insulin LISPRO* 1 UNITS UNIT SUBCUT SCH ×3 (07:45→17:37)
[2019-01-12] MEDS: Morphine INJ* 2 MG/ML 1 ML SYRINGE (TWO MG - NEW SYRINGE VERSION) IV PRN ×3 (08:35→20:47)
[2019-01-12] MEDS: Docusate CAP* 100 MG PO SCH ×2 (08:40→20:37)
[2019-01-12] MEDS: Atorvastatin* 80 MG TAB PO SCH (08:41)
[2019-01-12] MEDS: Gemfibrozil TAB* 600 MG PO SCH ×2 (08:42→20:37)
[2019-01-12] MEDS: Pantoprazole TAB * 40 MG TAB PO SCH (08:42)
[2019-01-12] MEDS: Aspirin 81 mg CHEW TAB* 81 MG TAB.CHEW PO SCH (08:42)
[2019-01-12] MEDS: Metoprolol Succinate XL TAB* 25 MG PO SCH (09:09)
[2019-01-12] MEDS: Sevelamer TAB* 800 MG PO SCH ×3 (09:31→17:36)
--- NOTE | 2019-01-12 09:43 | PN ---
Progress Note - Progress Note Date of Service: 01/12/19 SOAP: Subjective: CC: Left foot infection HPI: Mr. 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 Reports continued pain in the left foot, described as a throbbing. He doesn't feel like the pain has changed after either surgery. Denies fever, chills, ABD pain, nausea, vomiting, or diarrhea. He reports getting to a chair non weight bearing on the left. He reports 5 soft stools overnight. Objective: Physical Exam: General: NAD, sitting up in bed Neurological: Alert and Oriented x4 HEENT: Moist MM, no thrush Cardiovascular: Heart rate regular, no murmur Respiratory: Lung sounds clear, but diminished bilateral in the bases Abdominal: Bowel sounds present; ABD soft, non tender and non distended Skin: No rash. Surgical dressing to left lateral foot with wound vac draining serosang drainage. No erythema extending above the dressing. Laboratory Last Values WBC 5.6 10^3/uL (3.5-10.8) 01/11/19 07:43 RBC 3.39 10^6 /uL (4.18-5.48) L 01/11/19 07:43 Hgb 10.7 g/dL (14.0-18.0) L 01/11/19 07:43 Hct 31 % (42-52) L 01/11/19 07:43 MCV 92 fL (80-94) 01/11/19 07:43 MCH 32 pg (27-31) H 01/11/19 07:43 MCHC 34 g/dL (31-36) 01/11/19 07:43 RDW 14 % (10-15) 01/11/19 07:43 Plt Count 220 10^3/uL (150-450) 01/11/19 07:43 MPV 7.1 fL (7.4-10.4) L 01/11/19 07:43 Neut % (Auto) 74.0 % 01/11/19 07:43 Lymph % (Auto) 10.0 % 01/11/19 07:43 Lucas % (Auto) 11.7 % 01/11/19 07:43 Eos % (Auto) 3.1 % 01/11/19 07:43 Baso % (Auto) 1.2 % 01/11/19 07:43 Absolute Neuts (auto) 4.1 10^3/ul (1.5-7.7) 01/11/19 07:43 Absolute Lymphs (auto) 0.6 10^3/ul (1.0-4.8) L 01/11/19 07:43 Absolute Monos (auto) 0.7 10^3/ul (0-0.8) 01/11/19 07:43 Absolute Eos (auto) 0.2 10^3/ul (0-0.6) 01/11/19 07:43 Absolute Basos (auto) 0.1 10^3/ul (0-0.2) 01/11/19 07:43 Absolute Nucleated RBC 0.0 10^3/ul 01/11/19 07:43 Nucleated RBC % 0.0 01/11/19 07:43 INR (Anticoag Therapy) 1.27 (0.82-1.09) H 01/06/19 06:14 Sodium 133 mmol/L (135-145) L 01/11/19 07:43 Potassium 3.7 mmol/L (3.5-5.0) 01/11/19 07:43 Chloride 94 mmol/L (101-111) L 01/11/19 07:43 Carbon Dioxide 30 mmol/L (22-32) 01/11/19 07:43 Anion Gap 9 mmol/L (2-11) 01/11/19 07:43 BUN 34 mg/dL (6-24) H 01/11/19 07:43 Creatinine 5.03 mg/dL (0.67-1.17) H 01/11/19 07:43 1/Creatinine 0.17 01/03/19 08:24 Est GFR ( Amer) 13.7 (>60) 01/11/19 07:43 Est GFR (Non-Af Amer) 11.3 (>60) 01/11/19 07:43 BUN/Creatinine Ratio 6.8 (8-20) L 01/11/19 07:43 Glucose 152 mg/dL (70-100) H 01/11/19 07:43 POC Glucose (mg/dL) 118 mg/dL (70-100) H 01/12/19 07:30 Lactic Acid 2.2 mmol/L (0.5-2.0) H* 12/29/18 14:16 Calcium 8.3 mg/dL (8.6-10.3) L 01/11/19 07:43 Phosphorus 5.5 mg/dL (2.5-5.0) H 01/03/19 08:24 Magnesium 2.3 mg/dL (1.9-2.7) 01/03/19 08:24 Total Bilirubin 0.50 mg/dL (0.2-1.0) 01/10/19 09:57 Direct Bilirubin 0.20 mg/dL (0.03-0.18) H 01/08/19 06:31 Indirect Bilirubin 0.4 mg/dL (0.3-1.0) 01/08/19 06:31 AST 12 U/L (13-39) L 01/10/19 09:57 ALT < 3 U/L (7-52) L 01/10/19 09:57 Alkaline Phosphatase 99 U/L (34-104) 01/10/19 09:57 C-Reactive Protein 255.64 mg/L (<8.01) H 01/11/19 07:43 Total Protein 5.9 g/dL (6.4-8.9) L 01/10/19 09:57 Albumin 2.7 g/dL (3.2-5.2) L 01/10/19 09:57 Globulin 3.2 g/dL (2-4) 01/10/19 09:57 Albumin/Globulin Ratio 0.8 (1-3) L 01/10/19 09:57 Fluid Source Peritoneal 01/08/19 16:28 Fluid Volume 50.0 mL 01/08/19 16:28 Fluid Color Yellow 01/08/19 16:28 Fluid Appearance Clear 01/08/19 16:28 Fluid WBC 358 /mcL (0-183267) 01/08/19 16:28 Fluid RBC 313 /mcL 01/08/19 16:28 Fluid Tot Cell Count 100 01/08/19 16:28 Fluid Neutrophils 36 % 01/08/19 16:28 Fluid Band Neutrophils 1 % 01/08/19 16:28 Fluid Lymphocytes 4 % 01/08/19 16:28 Fluid Monocytes 58 % 01/08/19 16:28 Fluid Eosinophils 1 % 01/08/19 16:28 Fluid Other Cells 2 01/08/19 16:28 Fluid Cell Count Rvw By 01/08/19 16:28 Fluid Total Protein 4.1 g/dL 01/08/19 16:28 Fluid Comment 01/08/19 16:28 Random Vancomycin 6.3 mcg/mL 12/31/18 11:00 Hepatitis B Antibody Not immune (Immune) A 12/31/18 11:00 Hep Bs Antigen Negative (Negative) 12/31/18 11:00 Microbiology 01/11/19 15:05 Skin and Soft Tissue MRSA/MSSA (PCR - Final Foot Left Mrsa Negative S.aureus Positive Gram Stain - Final 01/08/19 16:28 Sterile Body Fluid Culture - Preliminary Peritoneal Fluid No Growth Day 3 Sterile Body Fluid Culture - Preliminary No Growth Day 3 01/06/19 12:01 Anaerobic Culture - Final Wound No Growth Day 4 01/06/19 12:01 Skin and Soft Tissue MRSA/MSSA (PCR - Final Foot Left Mrsa Negative S.aureus Positive Gram Stain - Final Wound Culture - Final No Growth Day 4 01/08/19 16:28 Gram Stain - Final Body Fluid 01/03/19 10:13 Gram Stain - Final Foot Left Wound Culture - Final Staphylococcus Aureus 12/29/18 14:15 Aerobic Blood Culture - Final Blood Venous No Growth Day 5 Anaerobic Blood Culture - Final No Growth Day 5 12/29/18 16:00 Gram Stain - Final Foot Left Wound Culture - Final Staphylococcus Aureus Normal Jero 12/29/18 16:00 Skin and Soft Tissue MRSA/MSSA (PCR - Final Foot Left Mrsa Negative S.aureus Negative Gram Stain - Final Wound Culture - Final Normal Jero Assessment: 1. Left foot cellulitis with possible osteomyelitis. Initial left foot wound culture with normal jero and staph aureus. Repeat culture on 01/03 with staph aureus. S/P left foot I+D and excision of 5th metatarsal base, POD # 6. Cultures obtained in the OR on 01/06 with PCR positive for staph aureus and no growth day 4. S/P extensive debridement of the lft lateral mid foot with ostectomy, partial cuboid resection, I+D and VAC dressing on 01/11/19, cultures obtained in the OR with PCR positive for staph aureus, 2+ epitheal cells, and 1 + gram positive cocci; final culture is pending. Afebrile and no leukocytosis. 2. DM2 with neuropathy. 3. ESRD on hemodialysis. Plan: Continue Cefazolin for now. Further recommendations will be based on clinical course and final culture results.
[2019-01-12] MEDS ORDERED: EPOETIN ALFA-EPBX * 2,000 UNIT/ML VIAL IV ONE (11:00)
[2019-01-12] MEDS ORDERED: EPOETIN ALFA-EPBX * 3,000 UNIT/ML VIAL IV ONE (11:00)
[2019-01-12] MEDS ORDERED: Heparin DIALYSIS ONLY(*) 1,000 UNITS/ML VIAL DIALYSIS ONE (11:00)
--- NOTE | 2019-01-12 13:00 | PN ---
Subjective Date of Service: 01/12/19 Interval History: seen this morning, complaining of increase pain from his foot s/p I&D 01/11/19. responded to IV morphine. Ascites fluid reviewed Positive 358 PMN's consistent with SBP on Ancef already and clinically improving. I could not have SAAG as there was no albumin results from his ascites. ID input appreciated. Will need to continue his cefazolin for now pending final wound cultures Past Medical History: Unchanged from Admission Objective Active Medications: Acetaminophen (Tylenol Tab*) 650 mg PO Q4H PRN PRN Reason: FEVER/PAIN Last Admin: 01/10/19 07:31 Dose: 650 mg Hydrocodone Bitart/Acetaminophen ([place] 5-325 Tab*) 2 tab PO Q4H PRN PRN Reason: PAIN Last Admin: 01/12/19 04:43 Dose: 2 tab Aspirin (Aspirin 81 Mg Chew Tab*) 81 mg PO DAILY [facility] Last Admin: 01/12/19 08:42 Dose: 81 mg Atorvastatin Calcium (Lipitor*) 80 mg PO QAM [facility] Last Admin: 01/12/19 08:41 Dose: 80 mg Calcium Carbonate (Tums*) 500 mg PO Q4H PRN PRN Reason: INDIGESTION Last Admin: 12/30/18 14:18 Dose: 500 mg Dextrose (D50w Syringe 50 Ml*) 12.5 gm IV PUSH .FOR FS < 60 - SS PRN PRN Reason: FS < 60 Docusate Sodium (Colace Cap*) 100 mg PO BID [facility] Last Admin: 01/12/19 08:40 Dose: 100 mg Gemfibrozil (Lopid Tab*) 600 mg PO BID [facility] Last Admin: 01/12/19 08:42 Dose: 600 mg Heparin Sodium (Porcine) (Heparin Vial(*)) 5,000 units SUBCUT Q8HR [facility] Last Admin: 01/12/19 04:45 Dose: Not Given Cefazolin Sodium 1 gm/ Sodium (Chloride) 50 mls @ 200 mls/hr IVPB Q24H [facility] Last Admin: 01/11/19 13:40 Dose: 200 mls/hr Insulin Human Lispro (Humalog*) 0 units SUBCUT [facility]; Protocol Last Admin: 01/12/19 07:45 Dose: Not Given Magnesium Hydroxide (Milk Of Magnesia Liq*) 30 ml PO BID PRN PRN Reason: CONSTIPATION Metoprolol Succinate (Toprol Xl Tab*) 25 mg PO QAM [facility] Last Admin: 01/12/19 09:09 Dose: Not Given Morphine Sulfate (Morphine Inj (Syringe))*) 2 mg IV Q2H PRN PRN Reason: PAIN Last Admin: 01/12/19 08:35 Dose: 2 mg Ondansetron HCl (Zofran Inj*) 4 mg IV Q6H PRN PRN Reason: NAUSEA Ondansetron HCl (Zofran Odt Tab*) 4 mg SL Q6H PRN PRN Reason: NAUSEA/VOMITING Last Admin: 01/11/19 14:24 Dose: 4 mg Pantoprazole Sodium (Protonix Tab*) 40 mg PO DAILY [facility] Last Admin: 01/12/19 08:42 Dose: 40 mg Polyethylene Glycol/Electrolytes (Miralax*) 17 gm PO DAILY PRN PRN Reason: CONSTIPATION Senna (Senokot Tab*) 1 tab PO BEDTIME PRN PRN Reason: CONSTIPATION Sevelamer Carbonate (Renvela Tab*) 1,600 mg PO [id number] [facility] Last Admin: 01/12/19 09:31 Dose: 1,600 mg Vital Signs - 8 hr 01/12/19 01/12/19 01/12/19 06:27 07:15 08:35 Temperature 96.4 F Pulse Rate 53 Respiratory 17 19 18 Rate Blood Pressure 108/43 (mmHg) O2 Sat by Pulse 100 Oximetry 01/12/19 01/12/19 09:10 10:04 Temperature Pulse Rate 63 Respiratory 18 18 Rate Blood Pressure 109/48 (mmHg) O2 Sat by Pulse Oximetry Oxygen Devices in Use Now: Nasal Cannula Appearance: awake alert. no distress. pleasant. pain better control with the addition of his IV morphine Eyes: No Scleral Icterus, - - EOMI Ears/Nose/Mouth/Throat: Mucous Membranes Moist Neck: NL Appearance and Movements; NL JVP, Trachea Midline Respiratory: Symmetrical Chest Expansion and Respiratory Effort, Clear to Auscultation Cardiovascular: NL Sounds; No Murmurs; No JVD Abdominal: - - distended. not tender Extremities: - - edema, left foot dressing intact, wound vac in place Result Diagrams: 01/11/19 07:43 01/11/19 07:43 Additional Lab and Data: Laboratory Results - last 24 hr 01/08/19 01/09/19 01/10/19 16:28 17:31 07:16 WBC RBC Hgb Hct MCV MCH MCHC RDW Plt Count MPV Neut % (Auto) Lymph % (Auto) [place] % (Auto) Eos % (Auto) Baso % (Auto) Absolute Neuts (auto) Absolute Lymphs (auto) Absolute Monos (auto) Absolute Eos (auto) Absolute Basos (auto) Absolute Nucleated RBC Nucleated RBC % Sodium Potassium Chloride Carbon Dioxide Anion Gap BUN Creatinine Est GFR ( Amer) Est GFR (Non-Af Amer) BUN/Creatinine Ratio Glucose POC Glucose (mg/dL) 141 H 131 H Calcium Total Bilirubin AST ALT Alkaline Phosphatase C-Reactive Protein Total Protein Albumin Globulin Albumin/Globulin Ratio Fluid Cell Count Rvw By 01/10/19 01/10/19 01/10/19 09:57 09:57 12:27 WBC 6.9 RBC 3.32 L Hgb 10.3 L Hct 31 L MCV 93 MCH 31 MCHC 33 RDW 14 Plt Count 212 MPV 7.1 L Neut % (Auto) 82.2 Lymph % (Auto) 7.6 [place] % (Auto) 7.6 Eos % (Auto) 1.9 Baso % (Auto) 0.7 Absolute Neuts (auto) 5.7 Absolute Lymphs (auto) 0.5 L Absolute Monos (auto) 0.5 Absolute Eos (auto) 0.1 Absolute Basos (auto) 0.0 Absolute Nucleated RBC 0.0 Nucleated RBC % 0.0 Sodium 132 L Potassium 4.2 Chloride 95 L Carbon Dioxide 26 Anion Gap 11 BUN 50 H Creatinine 6.31 H Est GFR ( Amer) 10.5 Est GFR (Non-Af Amer) 8.7 BUN/Creatinine Ratio 7.9 L Glucose 127 H POC Glucose (mg/dL) 127 H Calcium 8.2 L Total Bilirubin 0.50 AST 12 L ALT < 3 L Alkaline Phosphatase 99 C-Reactive Protein 242.28 H Total Protein 5.9 L Albumin 2.7 L Globulin 3.2 Albumin/Globulin Ratio 0.8 L Fluid Cell Count Rvw By 01/10/19 16:19 WBC RBC Hgb Hct MCV MCH MCHC RDW Plt Count MPV Neut % (Auto) Lymph % (Auto) [place] % (Auto) Eos % (Auto) Baso % (Auto) Absolute Neuts (auto) Absolute Lymphs (auto) Absolute Monos (auto) Absolute Eos (auto) Absolute Basos (auto) Absolute Nucleated RBC Nucleated RBC % Sodium Potassium Chloride Carbon Dioxide Anion Gap BUN Creatinine Est GFR ( Amer) Est GFR (Non-Af Amer) BUN/Creatinine Ratio Glucose POC Glucose (mg/dL) 168 H Calcium Total Bilirubin AST ALT Alkaline Phosphatase C-Reactive Protein Total Protein Albumin Globulin Albumin/Globulin Ratio Fluid Cell Count Rvw By Microbiology and Other Data: Microbiology 01/06/19 12:01 Wound Anaerobic Culture - Preliminary No Growth Day 3 01/06/19 12:01 Foot Left Skin and Soft Tissue MRSA/MSSA (PCR - Final Mrsa Negative S.aureus Positive 01/06/19 12:01 Foot Left Gram Stain - Final 01/06/19 12:01 Foot Left Wound Culture - Preliminary No Growth Day 3 01/08/19 16:28 Body Fluid Gram Stain - Final 01/03/19 10:13 Foot Left Gram Stain - Final 01/03/19 10:13 Foot Left Wound Culture - Final Staphylococcus Aureus 12/29/18 14:15 Blood Venous Aerobic Blood Culture - Final No Growth Day 5 12/29/18 14:15 Blood Venous Anaerobic Blood Culture - Final No Growth Day 5 12/29/18 16:00 Foot Left Gram Stain - Final 12/29/18 16:00 Foot Left Wound Culture - Final Staphylococcus Aureus Normal Nadja 12/29/18 16:00 Foot Left Skin and Soft Tissue MRSA/MSSA (PCR - Final Mrsa Negative S.aureus Negative 12/29/18 16:00 Foot Left Gram Stain - Final 12/29/18 16:00 Foot Left Wound Culture - Final Normal Nadja Diagnostic Imagin02/11/18 - VL ANK/BRACHIAL INDICES: Ankle-brachial indices: Right: Value (SBP) Index Brachial: 164 Posterior tibialis: Noncompressible Dorsalis pedis: Noncompressible Digit: 56 0.33 Left: Value (SBP) Index Brachial: 172 Posterior tibialis: Noncompressible Dorsalis pedis: Noncompressible Digit: 47 0.27 Doppler waveforms (acquired at rest): In the interrogated lower extremity arteries, Doppler waveforms are monophasic and the bilateral lower extremities with notably reduced amplitude at the right posterior tibial artery. Volume pulse recordings (acquired at rest): Volume pulse recordings measures 17 mm on the right and 35 mm on the left, a significant discrepancy indicating relatively decreased flow in the right ankle relative to the left. IMPRESSION: 1. Noncompressibility of the pedal arteries is consistent with advanced calcified atherosclerosis. 2. Values measured at the bilateral digits are consistent with rest pain. 3. The arterial waveforms measured at the bilateral feet and ankles are greatly attenuated and arranged indicating arterial insufficiency. 02/11/181933 - CTA ABD AORTA & RUNOFF: IMPRESSION: ABDOMINAL AORTA: #. Normal diameter abdominal aorta without evidence for dissection or hemodynamic significant stenosis. RIGHT ILIAC and LOWER EXTREMITY ARTERIES: #. 80% short segment stenosis at the RIGHT common iliac artery. #. 70% stenosis at the RIGHT superficial femoral artery. #. 50% stenosis at the RIGHT SFA at the adductor canal. #. Marked high-grade stenosis at the distal RIGHT popliteal artery. #. Suggestion of limited three-vessel runoff to the RIGHT ankle. LEFT ILIAC and LOWER EXTREMITY ARTERIES: #. Up to 60% stenosis at the mid segment of the LEFT superficial femoral artery. #. Up to 50% short segment stenosis at the infrageniculate LEFT popliteal artery. #. Suggestion of limited three-vessel runoff to the LEFT ankle. 12/29/181631 - MRI LOWER EXTREMITY LEFT W/O IMPRESSION: 1. Motion artifact is problematic on several sequences. 2. 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 No acute fracture. 3. Detail of the great toe is limited. There appears to be infiltrative change suggesting cellulitis distally. There is not a definite visualized abscess, nor is there current convincing evidence for osteomyelitis. 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 MSSA from cultures on cefazolin. 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 Moderate-Large ascites noted (new) s/p 8L para 01/08. s/p I&D 01/11 given increased tenderness, elevated CRP. - Patient Problems (1) Ascites Current Visit: Yes Status: Acute Code(s): R18.8 - OTHER ASCITES SNOMED Code(s): 115773635 Comment: - Pt had evidence of volume overload on CXR and moderate to large ascites on limited US. - s/p 8L para 01/08. Unable to determine his SAAG (ascite albumin not available ); however his PMN 358 with only 313 RBC's makes it consistent with SBP. appearance clear - May just be dialysis related - already on cefazolin and seems to be responding to it as well. no additional antibiotics required. 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 Matias 01/06. - s/p I&D 01/11/19, and prelim culture shows again staph. continue cefazolin and follow up final plan pending ID and ortho recommendations (3) ESRD (end stage renal disease) Current Visit: Yes Status: Acute Priority: Medium Code(s): N18.6 - END STAGE RENAL DISEASE SNOMED Code(s): 75654796 Comment: - Continue MWF dialysis. - Dr. Martínez consult appreciated. - I agree with Dr. Mendez that his target weight will have to be adjusted ~20lbs given the 8L volume removed. His weight as of 01/11/19 is down to 206 lbs (4) HTN (hypertension) Current Visit: Yes Status: Chronic Priority: High Code(s): I10 - ESSENTIAL (PRIMARY) HYPERTENSION SNOMED Code(s): 26179259 Comment: - BP low normal. - Continue metoprolol with hold parameters. - s/p 01/08 albumin 50gm given after the 8L para removed. (5) Type 2 diabetes mellitus Current Visit: Yes Status: Chronic Priority: Medium Comment: - Diabetes under good control. - Continue lispro sliding scale. (6) DVT prophylaxis Current Visit: Yes Status: Acute Priority: Low Code(s): GKP0455 - SNOMED Code(s): 573416227 Comment: SQ heparin Status and Disposition: inpatient, awaiting PT eval, final antibiotic recs. Ortho still doing debridements
[2019-01-12] MEDS: ceFAZolin 1 GM ADVAN(*) 1 GM in NS 0.9% 50 ML* 50 ML IVPB SCH (14:40)
--- NOTE | 2019-01-12 14:55 | PN ---
Progress Note - Progress Note Date of Service: 01/12/19 SOAP: Subjective: []Pt seen at bedside in dialysis suite. He reports continued pain of the left lateral foot, stating it feels "about the same". Denies feeling of fever, chills , CP, SOB. Objective: []General: NAD, nontoxic appearing LLE: Left foot dressing CDI, no erythema proximal or distal. Good vac suction. Able to flex and extend 1st MTP. Calves supple and nontender Assessment: []1. POD #5 Left foot irrigation and debridement Excision of left 5th metatarsal base 2. POD# 1 sp I&D left lateral foot Plan: Continue cefozolin per ID Cont NWB LLE OR tomorrow with Dr Solomon for vac change. NPO and hold chemical DVT prophy at midnight Vital Signs Temp 96.4 F 01/12/19 07:15 Pulse 63 01/12/19 09:10 Resp 18 01/12/19 14:41 BP 109/48 01/12/19 09:10 Pulse Ox 100 01/12/19 07:15 Intake & Output 01/11/19 01/12/19 01/12/19 18:59 06:59 18:59 Intake Total 610 0 240 Output Total 325 Balance 610 -325 240 Weight 206 lb 1.41 oz 207 lb 8 oz Intake: IV Fluids 250 0.45% Normal Saline 200 ABX - CEFAZOLIN 50 Oral 360 0 240 Output: Urine 325 Other: # Bowel Movements 0 # Voids 0 Laboratory Last Values WBC 5.6 10^3/uL (3.5-10.8) 01/11/19 07:43 RBC 3.39 10^6 /uL (4.18-5.48) L 01/11/19 07:43 Hgb 10.7 g/dL (14.0-18.0) L 01/11/19 07:43 Hct 31 % (42-52) L 01/11/19 07:43 MCV 92 fL (80-94) 01/11/19 07:43 MCH 32 pg (27-31) H 01/11/19 07:43 MCHC 34 g/dL (31-36) 01/11/19 07:43 RDW 14 % (10-15) 01/11/19 07:43 Plt Count 220 10^3/uL (150-450) 01/11/19 07:43 MPV 7.1 fL (7.4-10.4) L 01/11/19 07:43 Neut % (Auto) 74.0 % 01/11/19 07:43 Lymph % (Auto) 10.0 % 01/11/19 07:43 [place] % (Auto) 11.7 % 01/11/19 07:43 Eos % (Auto) 3.1 % 01/11/19 07:43 Baso % (Auto) 1.2 % 01/11/19 07:43 Absolute Neuts (auto) 4.1 10^3/ul (1.5-7.7) 01/11/19 07:43 Absolute Lymphs (auto) 0.6 10^3/ul (1.0-4.8) L 01/11/19 07:43 Absolute Monos (auto) 0.7 10^3/ul (0-0.8) 01/11/19 07:43 Absolute Eos (auto) 0.2 10^3/ul (0-0.6) 01/11/19 07:43 Absolute Basos (auto) 0.1 10^3/ul (0-0.2) 01/11/19 07:43 Absolute Nucleated RBC 0.0 10^3/ul 01/11/19 07:43 Nucleated RBC % 0.0 01/11/19 07:43 INR (Anticoag Therapy) 1.27 (0.82-1.09) H 01/06/19 06:14 Sodium 133 mmol/L (135-145) L 01/11/19 07:43 Potassium 3.7 mmol/L (3.5-5.0) 01/11/19 07:43 Chloride 94 mmol/L (101-111) L 01/11/19 07:43 Carbon Dioxide 30 mmol/L (22-32) 01/11/19 07:43 Anion Gap 9 mmol/L (2-11) 01/11/19 07:43 BUN 34 mg/dL (6-24) H 01/11/19 07:43 Creatinine 5.03 mg/dL (0.67-1.17) H 01/11/19 07:43 1/Creatinine 0.17 01/03/19 08:24 Est GFR ( Amer) 13.7 (>60) 01/11/19 07:43 Est GFR (Non-Af Amer) 11.3 (>60) 01/11/19 07:43 BUN/Creatinine Ratio 6.8 (8-20) L 01/11/19 07:43 Glucose 152 mg/dL (70-100) H 01/11/19 07:43 POC Glucose (mg/dL) 141 mg/dL (70-100) H 01/12/19 12:02 Lactic Acid 2.2 mmol/L (0.5-2.0) H* 12/29/18 14:16 Calcium 8.3 mg/dL (8.6-10.3) L 01/11/19 07:43 Phosphorus 5.5 mg/dL (2.5-5.0) H 01/03/19 08:24 Magnesium 2.3 mg/dL (1.9-2.7) 01/03/19 08:24 Total Bilirubin 0.50 mg/dL (0.2-1.0) 01/10/19 09:57 Direct Bilirubin 0.20 mg/dL (0.03-0.18) H 01/08/19 06:31 Indirect Bilirubin 0.4 mg/dL (0.3-1.0) 01/08/19 06:31 AST 12 U/L (13-39) L 01/10/19 09:57 ALT < 3 U/L (7-52) L 01/10/19 09:57 Alkaline Phosphatase 99 U/L (34-104) 01/10/19 09:57 C-Reactive Protein 255.64 mg/L (<8.01) H 01/11/19 07:43 Total Protein 5.9 g/dL (6.4-8.9) L 01/10/19 09:57 Albumin 2.7 g/dL (3.2-5.2) L 01/10/19 09:57 Globulin 3.2 g/dL (2-4) 01/10/19 09:57 Albumin/Globulin Ratio 0.8 (1-3) L 01/10/19 09:57 Fluid Source Peritoneal 01/08/19 16:28 Fluid Volume 50.0 mL 01/08/19 16:28 Fluid Color Yellow 01/08/19 16:28 Fluid Appearance Clear 01/08/19 16:28 Fluid WBC 358 /mcL (0-139011) 01/08/19 16:28 Fluid RBC 313 /mcL 01/08/19 16:28 Fluid Tot Cell Count 100 01/08/19 16:28 Fluid Neutrophils 36 % 01/08/19 16:28 Fluid Band Neutrophils 1 % 01/08/19 16:28 Fluid Lymphocytes 4 % 01/08/19 16:28 Fluid Monocytes 58 % 01/08/19 16:28 Fluid Eosinophils 1 % 01/08/19 16:28 Fluid Other Cells 2 01/08/19 16:28 Fluid Cell Count Rvw By 01/08/19 16:28 Fluid Total Protein 4.1 g/dL 01/08/19 16:28 Fluid Comment 01/08/19 16:28 Random Vancomycin 6.3 mcg/mL 12/31/18 11:00 Hepatitis B Antibody Not immune (Immune) A 12/31/18 11:00 Hep Bs Antigen Negative (Negative) 12/31/18 11:00
[2019-01-13] MEDS: Morphine INJ* 2 MG/ML 1 ML SYRINGE (TWO MG - NEW SYRINGE VERSION) IV PRN (01:22)
[2019-01-13 06:50] LABS: ABS Basophils 0.1 10^3/ul (0-0.2); ABS Eosinophils 0.2 10^3/ul (0-0.6); ABS Lymphocytes 0.8 10^3/ul (1.0-4.8); ABS Monocytes 0.5 10^3/ul (0-0.8); ABS Neutrophils 3.1 10^3/ul (1.5-7.7); Eosinophil % 4.9 %; Hematocrit 29 % (42-52); Hemoglobin 9.7 g/dL (14.0-18.0); Lymphocyte % 16.7 %; Mean Corpuscular HGB Conc 33 g/dL (31-36); Mean Corpuscular Hemoglobin 31 pg (27-31); Mean Corpuscular Volume 92 fL (80-94); Platelet Count 222 10^3/uL (150-450); Red Blood Count 3.15 10^6 /uL (4.18-5.48); Red Cell Distribution Width 15 % (10-15); White Blood Count 4.8 10^3/uL (3.5-10.8)
[2019-01-13 07:12] LABS: BUN/Creatinine Ratio 6.3 (8-20); Calcium 8.4 mg/dL (8.6-10.3); EGFR African American 16.3 (>60); EGFR Non-African American 13.5 (>60); Magnesium 1.9 mg/dL (1.9-2.7); Phosphorus 3.7 mg/dL (2.5-5.0); Potassium 3.9 mmol/L (3.5-5.0)
[2019-01-13] MEDS: Insulin LISPRO* 1 UNITS UNIT SUBCUT SCH ×3 (07:44→16:48)
[2019-01-13] MEDS: Sevelamer TAB* 800 MG PO SCH ×3 (08:54→18:02)
[2019-01-13] MEDS: Pantoprazole TAB * 40 MG TAB PO SCH (10:03)
[2019-01-13] MEDS: Gemfibrozil TAB* 600 MG PO SCH ×2 (10:03→21:04)
[2019-01-13] MEDS: Aspirin 81 mg CHEW TAB* 81 MG TAB.CHEW PO SCH (10:03)
[2019-01-13] MEDS: Atorvastatin* 80 MG TAB PO SCH (10:03)
[2019-01-13] MEDS: Metoprolol Succinate XL TAB* 25 MG PO SCH (10:03)
[2019-01-13] MEDS: Docusate CAP* 100 MG PO SCH ×2 (10:03→21:04)
[2019-01-13] MEDS ORDERED: Metoclopramide IV* 5 MG/ML 2 ML VIAL IV SLOW PU ONE (11:50)
[2019-01-13] MEDS ORDERED: Famotidine IV* 10 MG/ML 2 ML (20 mg) IV ONE (11:50)
[2019-01-13] MEDS: HYDROcodone/ACETAMIN 5-325 MG* 1 TAB PO PRN ×2 (12:18→21:04)
[2019-01-13] MEDS ORDERED: fentaNYL* 50 MCG/ML 2 ML VIAL (100 MCG VIAL) ONE ×2 (13:59→14:48)
[2019-01-13] MEDS ORDERED: Propofol* 10 MG/ML 20 ML BTL ONE (13:59)
[2019-01-13] MEDS ORDERED: Ondansetron INJ* 2 MG/ML VIAL IV PRN (14:44)
[2019-01-13] MEDS ORDERED: Naloxone* 0.4 MG/ML 1 ML VIAL IV PRN (14:44)
[2019-01-13] MEDS: fentaNYL* 50 MCG/ML 2 ML VIAL (100 MCG VIAL) IV PRN ×2 (14:52→15:21)
--- NOTE | 2019-01-13 15:57 | PN ---
Subjective Date of Service: 01/13/19 Interval History: Awake, in bed. still have pain in his left foot. For Wound vac dressing changes today in OR. No acute events overnight. Past Medical History: Unchanged from Admission Objective Active Medications: Acetaminophen (Tylenol Tab*) 650 mg PO Q4H PRN PRN Reason: FEVER/PAIN Last Admin: 01/10/19 07:31 Dose: 650 mg Hydrocodone Bitart/Acetaminophen ([place] 5-325 Tab*) 2 tab PO Q4H PRN PRN Reason: PAIN Last Admin: 01/13/19 12:18 Dose: 2 tab Aspirin (Aspirin 81 Mg Chew Tab*) 81 mg PO DAILY [facility] Last Admin: 01/13/19 10:03 Dose: 81 mg Atorvastatin Calcium (Lipitor*) 80 mg PO QAM [facility] Last Admin: 01/13/19 10:03 Dose: 80 mg Calcium Carbonate (Tums*) 500 mg PO Q4H PRN PRN Reason: INDIGESTION Last Admin: 12/30/18 14:18 Dose: 500 mg Dextrose (D50w Syringe 50 Ml*) 12.5 gm IV PUSH .FOR FS < 60 - SS PRN PRN Reason: FS < 60 Docusate Sodium (Colace Cap*) 100 mg PO BID [facility] Last Admin: 01/13/19 10:03 Dose: 100 mg Fentanyl Citrate (Fentanyl*) 50 mcg IV Q5M PRN PRN Reason: PAIN - MODERATE Last Admin: 01/13/19 15:21 Dose: 50 mcg Gemfibrozil (Lopid Tab*) 600 mg PO BID [facility] Last Admin: 01/13/19 10:03 Dose: 600 mg Cefazolin Sodium 1 gm/ Sodium (Chloride) 50 mls @ 200 mls/hr IVPB Q24H [facility] Last Admin: 01/12/19 14:40 Dose: 200 mls/hr Insulin Human Lispro (Humalog*) 0 units SUBCUT AC [facility]; Protocol Last Admin: 01/13/19 13:01 Dose: Not Given Magnesium Hydroxide (Milk Of Magnesia Liq*) 30 ml PO BID PRN PRN Reason: CONSTIPATION Metoprolol Succinate (Toprol Xl Tab*) 25 mg PO QAM [facility] Last Admin: 01/13/19 10:03 Dose: 25 mg Morphine Sulfate (Morphine Inj (Syringe))*) 2 mg IV Q2H PRN PRN Reason: PAIN Last Admin: 01/13/19 01:22 Dose: 2 mg Naloxone HCl (Narcan*) 0.08 mg IV Q2M PRN PRN Reason: severe induced resp depression Ondansetron HCl (Zofran Inj*) 4 mg IV Q6H PRN PRN Reason: NAUSEA Ondansetron HCl (Zofran Odt Tab*) 4 mg SL Q6H PRN PRN Reason: NAUSEA/VOMITING Last Admin: 01/11/19 14:24 Dose: 4 mg Ondansetron HCl (Zofran Inj*) 4 mg IV ONCE PRN PRN Reason: NAUSEA/VOMITING Pantoprazole Sodium (Protonix Tab*) 40 mg PO DAILY [facility] Last Admin: 01/13/19 10:03 Dose: 40 mg Polyethylene Glycol/Electrolytes (Miralax*) 17 gm PO DAILY PRN PRN Reason: CONSTIPATION Senna (Senokot Tab*) 1 tab PO BEDTIME PRN PRN Reason: CONSTIPATION Sevelamer Carbonate (Renvela Tab*) 1,600 mg PO 0845,1245,1745 [facility] Last Admin: 01/13/19 13:01 Dose: Not Given Vital Signs - 8 hr 01/13/19 01/13/19 01/13/19 08:00 11:15 12:18 Temperature 98.3 F Pulse Rate 62 Respiratory 20 24 18 Rate Blood Pressure 113/44 (mmHg) O2 Sat by Pulse 99 100 Oximetry 01/13/19 01/13/19 01/13/19 12:47 14:35 14:40 Temperature 97.7 F 97.0 F Pulse Rate 55 58 61 Respiratory 16 22 Rate Blood Pressure 105/58 103/53 113/51 (mmHg) O2 Sat by Pulse 99 98 96 Oximetry 01/13/19 01/13/19 01/13/19 14:45 14:52 15:00 Temperature Pulse Rate 58 62 Respiratory 28 28 Rate Blood Pressure 124/56 109/63 (mmHg) O2 Sat by Pulse 99 99 Oximetry 01/13/19 15:21 Temperature Pulse Rate Respiratory 20 Rate Blood Pressure (mmHg) O2 Sat by Pulse Oximetry Oxygen Devices in Use Now: Nasal Cannula Appearance: awake, alert. no distress Eyes: No Scleral Icterus, - - EOMI Ears/Nose/Mouth/Throat: NL Teeth, Lips, Gums, Mucous Membranes Moist Neck: NL Appearance and Movements; NL JVP Respiratory: Symmetrical Chest Expansion and Respiratory Effort, Clear to Auscultation Cardiovascular: NL Sounds; No Murmurs; No JVD Abdominal: - - BS + , non tender. Ascites present Extremities: - - Left foot dressing in place, wound vac Neurological: Alert and Oriented x 3 Result Diagrams: 01/13/19 06:31 01/13/19 06:31 Additional Lab and Data: Laboratory Results - last 24 hr 01/08/19 01/09/19 01/10/19 16:28 17:31 07:16 WBC RBC Hgb Hct MCV MCH MCHC RDW Plt Count MPV Neut % (Auto) Lymph % (Auto) Traverse % (Auto) Eos % (Auto) Baso % (Auto) Absolute Neuts (auto) Absolute Lymphs (auto) Absolute Monos (auto) Absolute Eos (auto) Absolute Basos (auto) Absolute Nucleated RBC Nucleated RBC % Sodium Potassium Chloride Carbon Dioxide Anion Gap BUN Creatinine Est GFR ( Amer) Est GFR (Non-Af Amer) BUN/Creatinine Ratio Glucose POC Glucose (mg/dL) 141 H 131 H Calcium Total Bilirubin AST ALT Alkaline Phosphatase C-Reactive Protein Total Protein Albumin Globulin Albumin/Globulin Ratio Fluid Cell Count Rvw By 01/10/19 01/10/19 01/10/19 09:57 09:57 12:27 WBC 6.9 RBC 3.32 L Hgb 10.3 L Hct 31 L MCV 93 MCH 31 MCHC 33 RDW 14 Plt Count 212 MPV 7.1 L Neut % (Auto) 82.2 Lymph % (Auto) 7.6 Traverse % (Auto) 7.6 Eos % (Auto) 1.9 Baso % (Auto) 0.7 Absolute Neuts (auto) 5.7 Absolute Lymphs (auto) 0.5 L Absolute Monos (auto) 0.5 Absolute Eos (auto) 0.1 Absolute Basos (auto) 0.0 Absolute Nucleated RBC 0.0 Nucleated RBC % 0.0 Sodium 132 L Potassium 4.2 Chloride 95 L Carbon Dioxide 26 Anion Gap 11 BUN 50 H Creatinine 6.31 H Est GFR ( Amer) 10.5 Est GFR (Non-Af Amer) 8.7 BUN/Creatinine Ratio 7.9 L Glucose 127 H POC Glucose (mg/dL) 127 H Calcium 8.2 L Total Bilirubin 0.50 AST 12 L ALT < 3 L Alkaline Phosphatase 99 C-Reactive Protein 242.28 H Total Protein 5.9 L Albumin 2.7 L Globulin 3.2 Albumin/Globulin Ratio 0.8 L Fluid Cell Count Rvw By 01/10/19 16:19 WBC RBC Hgb Hct MCV MCH MCHC RDW Plt Count MPV Neut % (Auto) Lymph % (Auto) Traverse % (Auto) Eos % (Auto) Baso % (Auto) Absolute Neuts (auto) Absolute Lymphs (auto) Absolute Monos (auto) Absolute Eos (auto) Absolute Basos (auto) Absolute Nucleated RBC Nucleated RBC % Sodium Potassium Chloride Carbon Dioxide Anion Gap BUN Creatinine Est GFR ( Amer) Est GFR (Non-Af Amer) BUN/Creatinine Ratio Glucose POC Glucose (mg/dL) 168 H Calcium Total Bilirubin AST ALT Alkaline Phosphatase C-Reactive Protein Total Protein Albumin Globulin Albumin/Globulin Ratio Fluid Cell Count Rvw By Diagnostic Imagin02/11/18 - VL ANK/BRACHIAL INDICES: Ankle-brachial indices: Right: Value (SBP) Index Brachial: 164 Posterior tibialis: Noncompressible Dorsalis pedis: Noncompressible Digit: 56 0.33 Left: Value (SBP) Index Brachial: 172 Posterior tibialis: Noncompressible Dorsalis pedis: Noncompressible Digit: 47 0.27 Doppler waveforms (acquired at rest): In the interrogated lower extremity arteries, Doppler waveforms are monophasic and the bilateral lower extremities with notably reduced amplitude at the right posterior tibial artery. Volume pulse recordings (acquired at rest): Volume pulse recordings measures 17 mm on the right and 35 mm on the left, a significant Assess/Plan/Problems-Billing Mr El is a 73 yo M with a h/o ESRD on HD and chronic wounds (including left lateral forefoot amputation) followed by the wound clinic who was sent to the ER for evaluation of cellulitis of the L foot. MSSA from cultures on cefazolin. 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 Moderate-Large ascites noted (new) s/p 8L para 01/08. s/p I&D 01/11 given increased tenderness, elevated CRP. - Patient Problems (1) SBP (spontaneous bacterial peritonitis) Current Visit: Yes Status: Acute Code(s): K65.2 - SPONTANEOUS BACTERIAL PERITONITIS SNOMED Code(s): 44835629 Comment: - Pt had evidence of volume overload on CXR and moderate to large ascites on limited US. - s/p 8L para 01/08. I was able to find his ascites albumin result documented under lab in the "Misc: section and his SAAG is 0.4. (not related to portal hypertension). It is most likely due to his volume overload and ESRD - His PMN 358 with only 313 RBC's makes it consistent with SBP. He is already on cefazolin and seems to be responding to it as well. no additional antibiotics required. - Will observe if it re-occur he may need to have repeat paracentesis (2) Ascites Current Visit: Yes Status: Acute Code(s): R18.8 - OTHER ASCITES SNOMED Code(s): 350561302 Comment: - Pt had evidence of volume overload on CXR and moderate to large ascites on limited US. - s/p 8L para 01/08. I was able to find his ascites albumin result documented under lab in the "Misc: section and his SAAG is 0.4. (not related to portal hypertension). It is most likely due to his volume overload and ESRD - His PMN 358 with only 313 RBC's makes it consistent with SBP. He is already on cefazolin and seems to be responding to it as well. no additional antibiotics required. - Will observe if it re-occur he may need to have repeat paracentesis (3) Subacute osteomyelitis, left ankle and foot Current Visit: Yes Status: Acute Priority: High Code(s): M86.272 - SUBACUTE OSTEOMYELITIS, LEFT ANKLE AND FOOT SNOMED Code(s): 90529343 Comment: - Appreciate ID and wound consult - will continue cefazolin 1 gm IV daily day # 6 (as of 01/07/19) prior to that she did recieve combination of vanco/Zosyn/clinda as of 12/29/18! 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 Matias 01/06. - s/p repeat I&D 01/11/19, and repeat relim culture shows again staph. continue cefazolin and follow up final plan pending ID and ortho recommendations (4) ESRD (end stage renal disease) Current Visit: Yes Status: Acute Priority: Medium Code(s): N18.6 - END STAGE RENAL DISEASE SNOMED Code(s): 18988981 Comment: - Continue MWF dialysis. - Dr. Martínez consult appreciated. - I agree with Dr. Mendez that his target weight will have to be adjusted ~20lbs given the 8L volume removed. His weight as of 01/11/19 is down to 206 lbs (5) HTN (hypertension) Current Visit: Yes Status: Chronic Priority: High Code(s): I10 - ESSENTIAL (PRIMARY) HYPERTENSION SNOMED Code(s): 42800123 Comment: - BP low normal. - Continue metoprolol with hold parameters. - s/p 01/08 albumin 50gm given after the 8L para removed. (6) Type 2 diabetes mellitus Current Visit: Yes Status: Chronic Priority: Medium Comment: - Diabetes under good control. - Continue lispro sliding scale. (7) DVT prophylaxis Current Visit: Yes Status: Acute Priority: Low Code(s): WGU3400 - SNOMED Code(s): 286464950 Comment: SQ heparin Status and Disposition: inpatient, awaiting PT eval, final antibiotic recs. Ortho still doing debridements
[2019-01-13] MEDS: ceFAZolin 1 GM ADVAN(*) 1 GM in NS 0.9% 50 ML* 50 ML IVPB SCH (16:19)
--- NOTE | 2019-01-13 21:34 | OP ---
DATE OF OPERATION: 01/13/19 - ROOM #421 DATE OF : 43 SURGEON: Byron Solomon MD PRE-OP DIAGNOSIS: Infected lateral midfoot wound. POST-OP DIAGNOSIS: Infected lateral midfoot wound. OPERATIVE PROCEDURE: Change VAC dressing with irrigation of left midfoot. DESCRIPTION OF PROCEDURE: The patient was taken to the operating room where we removed the previous VAC dressing. The wound itself is about 4 x 6 cm in size, fairly clean bed, we just did a pulsatile lavage and then placed a new VAC dressing into the depth of the wound, sealed with the Ioban and the suction disc. The patient tolerated this procedure well. My prediction is with another VAC change in 3 to 4 days, he may be able to have secondary closure of the wound within a week. [id number]/[facility] #: [id number] BHARATI
[2019-01-14] MEDS ORDERED: Heparin DIALYSIS ONLY(*) 1,000 UNITS/ML VIAL ONE (08:00)
[2019-01-14] MEDS ORDERED: EPOETIN ALFA-EPBX * 3,000 UNIT/ML VIAL IV ONE (08:00)
[2019-01-14] MEDS ORDERED: EPOETIN ALFA-EPBX * 2,000 UNIT/ML VIAL IV ONE (08:00)
[2019-01-14] MEDS: Insulin LISPRO* 1 UNITS UNIT SUBCUT SCH ×3 (08:43→17:40)
[2019-01-14] MEDS: Pantoprazole TAB * 40 MG TAB PO SCH (08:59)
[2019-01-14] MEDS: Atorvastatin* 80 MG TAB PO SCH (08:59)
[2019-01-14] MEDS: HYDROcodone/ACETAMIN 5-325 MG* 1 TAB PO PRN ×2 (09:00→14:06)
[2019-01-14] MEDS: Metoprolol Succinate XL TAB* 25 MG PO SCH (09:00)
[2019-01-14] MEDS: Docusate CAP* 100 MG PO SCH ×2 (09:00→21:27)
[2019-01-14] MEDS: Gemfibrozil TAB* 600 MG PO SCH ×2 (09:00→21:27)
[2019-01-14] MEDS: Heparin VIAL(*) 5000 UNITS/ML VIAL (FIVE THOUSAND) SUBCUT SCH ×2 (09:01→21:27)
[2019-01-14] MEDS: Sevelamer TAB* 800 MG PO SCH ×3 (09:27→17:39)
[2019-01-14] MEDS: Aspirin 81 mg CHEW TAB* 81 MG TAB.CHEW PO SCH (09:28)
--- NOTE | 2019-01-14 13:01 | PN ---
Progress Note - Progress Note Date of Service: 01/14/19 SOAP: Subjective: []Patient seen at bedside. States that his foot feels much better. The throbbing pain has stopped and he was able to sleep better last night. Objective: [] Vital Signs Temp 97.5 F 01/14/19 07:15 Pulse 56 01/14/19 07:15 Resp 16 01/14/19 09:37 BP 121/47 01/14/19 07:15 Pulse Ox 100 01/14/19 07:15 Intake & Output 01/13/19 01/14/19 01/14/19 18:59 06:59 18:59 Intake Total 350 80 Output Total 125 Balance 350 -45 Weight 205 lb 8 oz 210 lb Intake: IV Fluids 350 0.45 ns 300 NS 50ML, Cefazolin 1G 50 Oral 0 80 Output: Urine 125 Other: # Bowel Movements 0 # Voids 0 Laboratory Results - last 24 hr 01/13/19 01/13/19 01/14/19 14:43 16:42 07:51 POC Glucose (mg/dL) 113 H 100 119 H 01/14/19 11:58 POC Glucose (mg/dL) 169 H Left foot JOE is dry and intact wound vac currently working well Assessment: []s/p repeat I&D application wound vac left foot infection Plan: []Continue with wound vac and IV anti biotic therapy. Repeat wound vac change in 2-[address] Solomon.
[2019-01-14] MEDS: ceFAZolin 1 GM ADVAN(*) 1 GM in NS 0.9% 50 ML* 50 ML IVPB SCH (14:08)
--- NOTE | 2019-01-14 17:13 | PN ---
Subjective Date of Service: 01/14/19 Interval History: seen in dialysis session today. report decrease pain. no acute events. tolerating po well Past Medical History: Unchanged from Admission Objective Active Medications: Acetaminophen (Tylenol Tab*) 650 mg PO Q4H PRN PRN Reason: FEVER/PAIN Last Admin: 01/10/19 07:31 Dose: 650 mg Hydrocodone Bitart/Acetaminophen ([place] 5-325 Tab*) 2 tab PO Q4H PRN PRN Reason: PAIN Last Admin: 01/14/19 14:06 Dose: 2 tab Aspirin (Aspirin 81 Mg Chew Tab*) 81 mg PO DAILY [facility] Last Admin: 01/14/19 09:28 Dose: 81 mg Atorvastatin Calcium (Lipitor*) 80 mg PO QAM [facility] Last Admin: 01/14/19 08:59 Dose: 80 mg Calcium Carbonate (Tums*) 500 mg PO Q4H PRN PRN Reason: INDIGESTION Last Admin: 12/30/18 14:18 Dose: 500 mg Dextrose (D50w Syringe 50 Ml*) 12.5 gm IV PUSH .FOR FS < 60 - SS PRN PRN Reason: FS < 60 Docusate Sodium (Colace Cap*) 100 mg PO BID [facility] Last Admin: 01/14/19 09:00 Dose: 100 mg Gemfibrozil (Lopid Tab*) 600 mg PO BID [facility] Last Admin: 01/14/19 09:00 Dose: 600 mg Heparin Sodium (Porcine) (Heparin Vial(*)) 5,000 units SUBCUT Q12HR [facility] Last Admin: 01/14/19 09:01 Dose: 5,000 units Cefazolin Sodium 1 gm/ Sodium (Chloride) 50 mls @ 200 mls/hr IVPB Q24H [facility] Last Admin: 01/14/19 14:08 Dose: 200 mls/hr Insulin Human Lispro (Humalog*) 0 units SUBCUT AC [facility]; Protocol Last Admin: 01/14/19 12:50 Dose: 2 units Magnesium Hydroxide (Milk Of Magnesia Liq*) 30 ml PO BID PRN PRN Reason: CONSTIPATION Metoprolol Succinate (Toprol Xl Tab*) 25 mg PO QAM [facility] Last Admin: 01/14/19 09:00 Dose: Not Given Morphine Sulfate (Morphine Inj (Syringe))*) 2 mg IV Q2H PRN PRN Reason: PAIN Last Admin: 01/13/19 01:22 Dose: 2 mg Ondansetron HCl (Zofran Inj*) 4 mg IV Q6H PRN PRN Reason: NAUSEA Ondansetron HCl (Zofran Odt Tab*) 4 mg SL Q6H PRN PRN Reason: NAUSEA/VOMITING Last Admin: 01/11/19 14:24 Dose: 4 mg Pantoprazole Sodium (Protonix Tab*) 40 mg PO DAILY [facility] Last Admin: 01/14/19 08:59 Dose: 40 mg Polyethylene Glycol/Electrolytes (Miralax*) 17 gm PO DAILY PRN PRN Reason: CONSTIPATION Senna (Senokot Tab*) 1 tab PO BEDTIME PRN PRN Reason: CONSTIPATION Sevelamer Carbonate (Renvela Tab*) 1,600 mg PO 0845,1245,1745 [facility] Last Admin: 01/14/19 12:45 Dose: 1,600 mg Vital Signs - 8 hr 01/14/19 01/14/19 01/14/19 09:37 12:00 13:50 Temperature 98.1 F Pulse Rate 57 Respiratory 16 28 16 Rate Blood Pressure 102/39 (mmHg) O2 Sat by Pulse 94 Oximetry 01/14/19 01/14/19 01/14/19 14:06 15:41 16:55 Temperature 97.7 F Pulse Rate 58 Respiratory 12 20 14 Rate Blood Pressure 112/47 (mmHg) O2 Sat by Pulse 92 Oximetry Oxygen Devices in Use Now: None Appearance: Oxygen Devices in Use Now: Nasal Cannula. Appearance: awake, alert. no distress. Eyes: No Scleral Icterus, - - EOMI. Ears/Nose/Mouth/Throat : NL Teeth, Lips, Gums, Mucous Membranes Moist. Neck: NL Appearance and Movements; NL JVP. Respiratory: Symmetrical Chest Expansion and Respiratory Effort, Clear to Auscultation. Cardiovascular: NL Sounds; No Murmurs; No JVD. Abdominal: - - BS + , non tender. Ascites present. Extremities: - - Left foot dressing in place, wound vac. Neurological: Alert and Oriented x 3 Result Diagrams: 01/13/19 06:31 01/13/19 06:31 Additional Lab and Data: Laboratory Results - last 24 hr 01/08/19 01/09/19 01/10/19 16:28 17:31 07:16 WBC RBC Hgb Hct MCV MCH MCHC RDW Plt Count MPV Neut % (Auto) Lymph % (Auto) Nance % (Auto) Eos % (Auto) Baso % (Auto) Absolute Neuts (auto) Absolute Lymphs (auto) Absolute Monos (auto) Absolute Eos (auto) Absolute Basos (auto) Absolute Nucleated RBC Nucleated RBC % Sodium Potassium Chloride Carbon Dioxide Anion Gap BUN Creatinine Est GFR ( Amer) Est GFR (Non-Af Amer) BUN/Creatinine Ratio Glucose POC Glucose (mg/dL) 141 H 131 H Calcium Total Bilirubin AST ALT Alkaline Phosphatase C-Reactive Protein Total Protein Albumin Globulin Albumin/Globulin Ratio Fluid Cell Count Rvw By 01/10/19 01/10/19 01/10/19 09:57 09:57 12:27 WBC 6.9 RBC 3.32 L Hgb 10.3 L Hct 31 L MCV 93 MCH 31 MCHC 33 RDW 14 Plt Count 212 MPV 7.1 L Neut % (Auto) 82.2 Lymph % (Auto) 7.6 Nance % (Auto) 7.6 Eos % (Auto) 1.9 Baso % (Auto) 0.7 Absolute Neuts (auto) 5.7 Absolute Lymphs (auto) 0.5 L Absolute Monos (auto) 0.5 Absolute Eos (auto) 0.1 Absolute Basos (auto) 0.0 Absolute Nucleated RBC 0.0 Nucleated RBC % 0.0 Sodium 132 L Potassium 4.2 Chloride 95 L Carbon Dioxide 26 Anion Gap 11 BUN 50 H Creatinine 6.31 H Est GFR ( Amer) 10.5 Est GFR (Non-Af Amer) 8.7 BUN/Creatinine Ratio 7.9 L Glucose 127 H POC Glucose (mg/dL) 127 H Calcium 8.2 L Total Bilirubin 0.50 AST 12 L ALT < 3 L Alkaline Phosphatase 99 C-Reactive Protein 242.28 H Total Protein 5.9 L Albumin 2.7 L Globulin 3.2 Albumin/Globulin Ratio 0.8 L Fluid Cell Count Rvw By 01/10/19 16:19 WBC RBC Hgb Hct MCV MCH MCHC RDW Plt Count MPV Neut % (Auto) Lymph % (Auto) Nance % (Auto) Eos % (Auto) Baso % (Auto) Absolute Neuts (auto) Absolute Lymphs (auto) Absolute Monos (auto) Absolute Eos (auto) Absolute Basos (auto) Absolute Nucleated RBC Nucleated RBC % Sodium Potassium Chloride Carbon Dioxide Anion Gap BUN Creatinine Est GFR ( Amer) Est GFR (Non-Af Amer) BUN/Creatinine Ratio Glucose POC Glucose (mg/dL) 168 H Calcium Total Bilirubin AST ALT Alkaline Phosphatase C-Reactive Protein Total Protein Albumin Globulin Albumin/Globulin Ratio Fluid Cell Count Rvw By Microbiology and Other Data: Microbiology 01/06/19 12:01 Wound Anaerobic Culture - Preliminary No Growth Day 3 01/06/19 12:01 Foot Left Skin and Soft Tissue MRSA/MSSA (PCR - Final Mrsa Negative S.aureus Positive 01/06/19 12:01 Foot Left Gram Stain - Final 01/06/19 12:01 Foot Left Wound Culture - Preliminary No Growth Day 3 01/08/19 16:28 Body Fluid Gram Stain - Final 01/03/19 10:13 Foot Left Gram Stain - Final 01/03/19 10:13 Foot Left Wound Culture - Final Staphylococcus Aureus 12/29/18 14:15 Blood Venous Aerobic Blood Culture - Final No Growth Day 5 12/29/18 14:15 Blood Venous Anaerobic Blood Culture - Final No Growth Day 5 12/29/18 16:00 Foot Left Gram Stain - Final 12/29/18 16:00 Foot Left Wound Culture - Final Staphylococcus Aureus Normal Nadja 12/29/18 16:00 Foot Left Skin and Soft Tissue MRSA/MSSA (PCR - Final Mrsa Negative S.aureus Negative 12/29/18 16:00 Foot Left Gram Stain - Final 12/29/18 16:00 Foot Left Wound Culture - Final Normal Nadja Diagnostic Imagin02/11/18 - VL ANK/BRACHIAL INDICES: Ankle-brachial indices: Right: Value (SBP) Index Brachial: 164 Posterior tibialis: Noncompressible Dorsalis pedis: Noncompressible Digit: 56 0.33 Left: Value (SBP) Index Brachial: 172 Posterior tibialis: Noncompressible Dorsalis pedis: Noncompressible Digit: 47 0.27 Doppler waveforms (acquired at rest): In the interrogated lower extremity arteries, Doppler waveforms are monophasic and the bilateral lower extremities with notably reduced amplitude at the right posterior tibial artery. Volume pulse recordings (acquired at rest): Volume pulse recordings measures 17 mm on the right and 35 mm on the left, a significant Assess/Plan/Problems-Billing Mr El is a 73 yo M with a h/o ESRD on HD and chronic wounds (including left lateral forefoot amputation) followed by the wound clinic who was sent to the ER for evaluation of cellulitis of the L foot. MSSA from cultures on cefazolin. 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 Moderate-Large ascites noted (new) s/p 8L para 01/08. s/p I&D 01/11 given increased tenderness, elevated CRP. - Patient Problems (1) SBP (spontaneous bacterial peritonitis) Current Visit: Yes Status: Acute Code(s): K65.2 - SPONTANEOUS BACTERIAL PERITONITIS SNOMED Code(s): 81397399 Comment: - Pt had evidence of volume overload on CXR and moderate to large ascites on limited US. - s/p 8L para 01/08. his SAAG is 0.4. (not related to portal hypertension). It is most likely due to his volume overload and ESRD - His PMN 358 with only 313 RBC's makes it consistent with SBP. He is already on cefazolin and seems to be responding to it as well. no additional antibiotics required. - Will observe if it re-occur he may need to have repeat paracentesis (2) Ascites Current Visit: Yes Status: Acute Code(s): R18.8 - OTHER ASCITES SNOMED Code(s): 399485161 Comment: - Pt had evidence of volume overload on CXR and moderate to large ascites on limited US. - s/p 8L para 01/08. his SAAG is 0.4. (not related to portal hypertension). It is most likely due to his volume overload and ESRD - His PMN 358 with only 313 RBC's makes it consistent with SBP. He is already on cefazolin and seems to be responding to it as well. no additional antibiotics required. - Will observe if it re-occur he may need to have repeat paracentesis (3) Subacute osteomyelitis, left ankle and foot Current Visit: Yes Status: Acute Priority: High Code(s): M86.272 - SUBACUTE OSTEOMYELITIS, LEFT ANKLE AND FOOT SNOMED Code(s): 69113326 Comment: - Appreciate ID and wound consult - will continue cefazolin 1 gm IV daily day # 7 (as of 01/07/19) prior to that he did recieve combination of vanco/Zosyn/clinda as of 12/29/18! 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 Matias 01/06. - s/p repeat I&D 01/11/19, and repeat relim culture shows again staph. continue cefazolin and follow up final plan pending ID and ortho recommendations - Plan for repeat Wound vac and I&D in 2-3 days (4) ESRD (end stage renal disease) Current Visit: Yes Status: Acute Priority: Medium Code(s): N18.6 - END STAGE RENAL DISEASE SNOMED Code(s): 50652680 Comment: - Continue MWF dialysis. - Dr. Martínez consult appreciated. - I agree with Dr. Mendez that his target weight will have to be adjusted ~20lbs given the 8L volume removed. His weight as of 01/11/19 is down to 206 lbs (5) HTN (hypertension) Current Visit: Yes Status: Chronic Priority: High Code(s): I10 - ESSENTIAL (PRIMARY) HYPERTENSION SNOMED Code(s): 48166849 Comment: - BP low normal. - Continue metoprolol with hold parameters. - s/p 01/08 albumin 50gm given after the 8L para removed. (6) Type 2 diabetes mellitus Current Visit: Yes Status: Chronic Priority: Medium Comment: - Diabetes under good control. - Continue lispro sliding scale. (7) DVT prophylaxis Current Visit: Yes Status: Acute Priority: Low Code(s): JIX9931 - SNOMED Code(s): 911581652 Comment: SQ heparin Status and Disposition: inpatient, awaiting PT eval, final antibiotic recs. Ortho still doing debridements
[2019-01-14] MEDS: Morphine INJ* 2 MG/ML 1 ML SYRINGE (TWO MG - NEW SYRINGE VERSION) IV PRN (21:27)
[2019-01-15] MEDS: HYDROcodone/ACETAMIN 5-325 MG* 1 TAB PO PRN ×2 (01:30→20:37)
[2019-01-15] MEDS: Insulin LISPRO* 1 UNITS UNIT SUBCUT SCH ×3 (08:49→17:35)
[2019-01-15] MEDS: Sevelamer TAB* 800 MG PO SCH ×3 (08:58→17:36)
[2019-01-15] MEDS: Metoprolol Succinate XL TAB* 25 MG PO SCH (08:58)
[2019-01-15] MEDS: Docusate CAP* 100 MG PO SCH ×2 (08:59→20:38)
[2019-01-15] MEDS: Gemfibrozil TAB* 600 MG PO SCH ×2 (08:59→20:38)
[2019-01-15] MEDS: Pantoprazole TAB * 40 MG TAB PO SCH (08:59)
[2019-01-15] MEDS: Atorvastatin* 80 MG TAB PO SCH (08:59)
[2019-01-15] MEDS: Aspirin 81 mg CHEW TAB* 81 MG TAB.CHEW PO SCH (08:59)
[2019-01-15] MEDS: Heparin VIAL(*) 5000 UNITS/ML VIAL (FIVE THOUSAND) SUBCUT SCH ×2 (08:59→20:42)
--- NOTE | 2019-01-15 09:35 | PN ---
Progress Note - Progress Note Date of Service: 01/15/19 SOAP: Subjective: POD #2 repeat I&D left foot. Doing ok. VAC not functioning through the night. Pain controlled. Denies CP/SOB, f/c, n/v or calf pain Objective: Vitals: Temp Pulse Resp BP Pulse Ox 97.1 F 60 18 110/47 94 01/15/19 07:15 01/15/19 07:15 01/15/19 08:00 01/15/19 07:15 01/15/19 08:00 Gen: A&O x3, NAD at rest sitting in bed LLE: VAC clamped and removed. Several clots formed over sponge. No purulent d/c or erythema. Labs: Laboratory Results - last 24 hr 01/14/01/14/19 01/15/19 11:58 17:06 08:01 POC Glucose (mg/dL) 169 H 162 H 118 H Assessment: POD #2 repeat I&D left foot Plan: Saline WTD dressing applied today, will reassess for VAC again tomorrow Cont abx per ID Elevate foot frequently, cont NWB LLE
[2019-01-15] MEDS: Ondansetron ODT TAB* 4 MG SL PRN (10:10)
[2019-01-15] MEDS: ceFAZolin 1 GM ADVAN(*) 1 GM in NS 0.9% 50 ML* 50 ML IVPB SCH (13:05)
--- NOTE | 2019-01-15 17:03 | PN ---
Subjective Date of Service: 01/15/19 Interval History: no distress. resting. he required hydrocodone for pain only once it was around 1 am. no events otherwise. taking po and no fever or chills Past Medical History: Unchanged from Admission Objective Active Medications: Acetaminophen (Tylenol Tab*) 650 mg PO Q4H PRN PRN Reason: FEVER/PAIN Last Admin: 01/10/19 07:31 Dose: 650 mg Hydrocodone Bitart/Acetaminophen ([place] 5-325 Tab*) 2 tab PO Q4H PRN PRN Reason: PAIN Last Admin: 01/15/19 01:30 Dose: 2 tab Aspirin (Aspirin 81 Mg Chew Tab*) 81 mg PO DAILY [facility] Last Admin: 01/15/19 08:59 Dose: 81 mg Atorvastatin Calcium (Lipitor*) 80 mg PO QAM [facility] Last Admin: 01/15/19 08:59 Dose: 80 mg Calcium Carbonate (Tums*) 500 mg PO Q4H PRN PRN Reason: INDIGESTION Last Admin: 12/30/18 14:18 Dose: 500 mg Dextrose (D50w Syringe 50 Ml*) 12.5 gm IV PUSH .FOR FS < 60 - SS PRN PRN Reason: FS < 60 Docusate Sodium (Colace Cap*) 100 mg PO BID [facility] Last Admin: 01/15/19 08:59 Dose: 100 mg Gemfibrozil (Lopid Tab*) 600 mg PO BID [facility] Last Admin: 01/15/19 08:59 Dose: 600 mg Heparin Sodium (Porcine) (Heparin Vial(*)) 5,000 units SUBCUT Q12HR [facility] Last Admin: 01/15/19 08:59 Dose: 5,000 units Cefazolin Sodium 1 gm/ Sodium (Chloride) 50 mls @ 200 mls/hr IVPB Q24H [facility] Last Admin: 01/15/19 13:05 Dose: 200 mls/hr Insulin Human Lispro (Humalog*) 0 units SUBCUT AC [facility]; Protocol Last Admin: 01/15/19 13:05 Dose: 1 units Magnesium Hydroxide (Milk Of Magnesia Liq*) 30 ml PO BID PRN PRN Reason: CONSTIPATION Metoprolol Succinate (Toprol Xl Tab*) 25 mg PO QAM [facility] Last Admin: 01/15/19 08:58 Dose: 25 mg Morphine Sulfate (Morphine Inj (Syringe))*) 2 mg IV Q2H PRN PRN Reason: PAIN Last Admin: 01/14/19 21:27 Dose: 2 mg Ondansetron HCl (Zofran Inj*) 4 mg IV Q6H PRN PRN Reason: NAUSEA Ondansetron HCl (Zofran Odt Tab*) 4 mg SL Q6H PRN PRN Reason: NAUSEA/VOMITING Last Admin: 01/15/19 10:10 Dose: 4 mg Pantoprazole Sodium (Protonix Tab*) 40 mg PO DAILY [facility] Last Admin: 01/15/19 08:59 Dose: 40 mg Polyethylene Glycol/Electrolytes (Miralax*) 17 gm PO DAILY PRN PRN Reason: CONSTIPATION Senna (Senokot Tab*) 1 tab PO BEDTIME PRN PRN Reason: CONSTIPATION Sevelamer Carbonate (Renvela Tab*) 1,600 mg PO 0845,1245,1745 [facility] Last Admin: 01/15/19 13:05 Dose: 1,600 mg Vital Signs - 8 hr 01/15/19 01/15/19 11:15 15:15 Temperature 98.0 F 97.8 F Pulse Rate 58 57 Respiratory 17 17 Rate Blood Pressure 117/47 120/53 (mmHg) O2 Sat by Pulse 97 98 Oximetry Oxygen Devices in Use Now: None Appearance: awake, alert. no distress Eyes: No Scleral Icterus, - - EOMI Ears/Nose/Mouth/Throat: NL Teeth, Lips, Gums, Mucous Membranes Moist Neck: NL Appearance and Movements; NL JVP, Trachea Midline Respiratory: Symmetrical Chest Expansion and Respiratory Effort, Clear to Auscultation Cardiovascular: NL Sounds; No Murmurs; No JVD, No Edema Extremities: - Skin: No Rash or Ulcers Neurological: Alert and Oriented x 3 Result Diagrams: 01/13/19 06:31 01/13/19 06:31 Additional Lab and Data: Laboratory Results - last 24 hr 01/08/19 01/09/19 01/10/19 16:28 17:31 07:16 WBC RBC Hgb Hct MCV MCH MCHC RDW Plt Count MPV Neut % (Auto) Lymph % (Auto) Luce % (Auto) Eos % (Auto) Baso % (Auto) Absolute Neuts (auto) Absolute Lymphs (auto) Absolute Monos (auto) Absolute Eos (auto) Absolute Basos (auto) Absolute Nucleated RBC Nucleated RBC % Sodium Potassium Chloride Carbon Dioxide Anion Gap BUN Creatinine Est GFR ( Amer) Est GFR (Non-Af Amer) BUN/Creatinine Ratio Glucose POC Glucose (mg/dL) 141 H 131 H Calcium Total Bilirubin AST ALT Alkaline Phosphatase C-Reactive Protein Total Protein Albumin Globulin Albumin/Globulin Ratio Fluid Cell Count Rvw By 01/10/19 01/10/19 01/10/19 09:57 09:57 12:27 WBC 6.9 RBC 3.32 L Hgb 10.3 L Hct 31 L MCV 93 MCH 31 MCHC 33 RDW 14 Plt Count 212 MPV 7.1 L Neut % (Auto) 82.2 Lymph % (Auto) 7.6 Luce % (Auto) 7.6 Eos % (Auto) 1.9 Baso % (Auto) 0.7 Absolute Neuts (auto) 5.7 Absolute Lymphs (auto) 0.5 L Absolute Monos (auto) 0.5 Absolute Eos (auto) 0.1 Absolute Basos (auto) 0.0 Absolute Nucleated RBC 0.0 Nucleated RBC % 0.0 Sodium 132 L Potassium 4.2 Chloride 95 L Carbon Dioxide 26 Anion Gap 11 BUN 50 H Creatinine 6.31 H Est GFR ( Amer) 10.5 Est GFR (Non-Af Amer) 8.7 BUN/Creatinine Ratio 7.9 L Glucose 127 H POC Glucose (mg/dL) 127 H Calcium 8.2 L Total Bilirubin 0.50 AST 12 L ALT < 3 L Alkaline Phosphatase 99 C-Reactive Protein 242.28 H Total Protein 5.9 L Albumin 2.7 L Globulin 3.2 Albumin/Globulin Ratio 0.8 L Fluid Cell Count Rvw By 01/10/19 16:19 WBC RBC Hgb Hct MCV MCH MCHC RDW Plt Count MPV Neut % (Auto) Lymph % (Auto) Luce % (Auto) Eos % (Auto) Baso % (Auto) Absolute Neuts (auto) Absolute Lymphs (auto) Absolute Monos (auto) Absolute Eos (auto) Absolute Basos (auto) Absolute Nucleated RBC Nucleated RBC % Sodium Potassium Chloride Carbon Dioxide Anion Gap BUN Creatinine Est GFR ( Amer) Est GFR (Non-Af Amer) BUN/Creatinine Ratio Glucose POC Glucose (mg/dL) 168 H Calcium Total Bilirubin AST ALT Alkaline Phosphatase C-Reactive Protein Total Protein Albumin Globulin Albumin/Globulin Ratio Fluid Cell Count Rvw By Microbiology and Other Data: Microbiology 01/06/19 12:01 Wound Anaerobic Culture - Preliminary No Growth Day 3 01/06/19 12:01 Foot Left Skin and Soft Tissue MRSA/MSSA (PCR - Final Mrsa Negative S.aureus Positive 01/06/19 12:01 Foot Left Gram Stain - Final 01/06/19 12:01 Foot Left Wound Culture - Preliminary No Growth Day 3 01/08/19 16:28 Body Fluid Gram Stain - Final 01/03/19 10:13 Foot Left Gram Stain - Final 01/03/19 10:13 Foot Left Wound Culture - Final Staphylococcus Aureus 12/29/18 14:15 Blood Venous Aerobic Blood Culture - Final No Growth Day 5 12/29/18 14:15 Blood Venous Anaerobic Blood Culture - Final No Growth Day 5 12/29/18 16:00 Foot Left Gram Stain - Final 12/29/18 16:00 Foot Left Wound Culture - Final Staphylococcus Aureus Normal Nadja 12/29/18 16:00 Foot Left Skin and Soft Tissue MRSA/MSSA (PCR - Final Mrsa Negative S.aureus Negative 12/29/18 16:00 Foot Left Gram Stain - Final 12/29/18 16:00 Foot Left Wound Culture - Final Normal Nadja Diagnostic Imagin02/11/18 - VL ANK/BRACHIAL INDICES: Ankle-brachial indices: Right: Value (SBP) Index Brachial: 164 Posterior tibialis: Noncompressible Dorsalis pedis: Noncompressible Digit: 56 0.33 Left: Value (SBP) Index Brachial: 172 Posterior tibialis: Noncompressible Dorsalis pedis: Noncompressible Digit: 47 0.27 Doppler waveforms (acquired at rest): In the interrogated lower extremity arteries, Doppler waveforms are monophasic and the bilateral lower extremities with notably reduced amplitude at the right posterior tibial artery. Volume pulse recordings (acquired at rest): Volume pulse recordings measures 17 mm on the right and 35 mm on the left, a significant Assess/Plan/Problems-Billing Mr El is a 73 yo M with a h/o ESRD on HD and chronic wounds (including left lateral forefoot amputation) followed by the wound clinic who was sent to the ER for evaluation of cellulitis of the L foot. MSSA from cultures on cefazolin. 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 Moderate-Large ascites noted (new) s/p 8L para 01/08. s/p I&D 01/11 given increased tenderness, elevated CRP. - Patient Problems (1) SBP (spontaneous bacterial peritonitis) Current Visit: Yes Status: Acute Code(s): K65.2 - SPONTANEOUS BACTERIAL PERITONITIS SNOMED Code(s): 32383306 Comment: - Pt had evidence of volume overload on CXR and moderate to large ascites on limited US. - s/p 8L para 01/08. his SAAG is 0.4. (not related to portal hypertension). It is most likely due to his volume overload and ESRD - His PMN 358 with only 313 RBC's makes it consistent with SBP. He is already on cefazolin and seems to be responding to it as well. no additional antibiotics required. - Will observe if it re-occur he may need to have repeat paracentesis. His weight up to 212 lbs. Will monitor if it does not decrease after dialysis back to 205 on thursday he may need repeat paracentesis (2) Ascites Current Visit: Yes Status: Acute Code(s): R18.8 - OTHER ASCITES SNOMED Code(s): 371881417 Comment: - Pt had evidence of volume overload on CXR and moderate to large ascites on limited US. - s/p 8L para 01/08. his SAAG is 0.4. (not related to portal hypertension). It is most likely due to his volume overload and ESRD - His PMN 358 with only 313 RBC's makes it consistent with SBP. He is already on cefazolin and seems to be responding to it as well. no additional antibiotics required. - Will observe if it re-occur he may need to have repeat paracentesis. His weight up to 212 lbs. Will monitor if it does not decrease after dialysis back to 205 on thursday he may need repeat paracentesis (3) Subacute osteomyelitis, left ankle and foot Current Visit: Yes Status: Acute Priority: High Code(s): M86.272 - SUBACUTE OSTEOMYELITIS, LEFT ANKLE AND FOOT SNOMED Code(s): 34730973 Comment: - Appreciate ID and wound consult - will continue cefazolin 1 gm IV daily day # 8 (as of 01/07/19) prior to that he did recieve combination of vanco/Zosyn/clinda as of 12/29/18! 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 Matias 01/06. - s/p repeat I&D 01/11/19, and repeat relim culture shows again staph. Continue cefazolin and follow up final plan pending ID and ortho recommendations - Plan for repeat Wound vac and I&D in 2-3 days (4) ESRD (end stage renal disease) Current Visit: Yes Status: Acute Priority: Medium Code(s): N18.6 - END STAGE RENAL DISEASE SNOMED Code(s): 52500048 Comment: - Continue MWF dialysis. - Dr. Martínez consult appreciated. - I agree with Dr. Mendez that his target weight will have to be adjusted ~20lbs given the 8L volume removed. His weight as of 01/11/19 is down to 206 lbs, But his weight today 01/15/19 is up to 212 lbs. If his weigth does not decrease after dialysis back to 205 on thursday he may need repeat paracentesis (5) HTN (hypertension) Current Visit: Yes Status: Chronic Priority: High Code(s): I10 - ESSENTIAL (PRIMARY) HYPERTENSION SNOMED Code(s): 54033127 Comment: - BP low normal. - Continue metoprolol with hold parameters. - s/p 01/08 albumin 50gm given after the 8L para removed. (6) Type 2 diabetes mellitus Current Visit: Yes Status: Chronic Priority: Medium Comment: - Diabetes under good control. - Continue lispro sliding scale. (7) DVT prophylaxis Current Visit: Yes Status: Acute Priority: Low Code(s): KBG1817 - SNOMED Code(s): 841678440 Comment: SQ heparin Status and Disposition: inpatient, awaiting PT eval, final antibiotic recs. Ortho still doing debridements
[2019-01-15] MEDS: Senna TAB PO PRN (20:38)
[2019-01-16] MEDS: Insulin LISPRO* 1 UNITS UNIT SUBCUT SCH ×3 (08:09→18:20)
[2019-01-16] MEDS: Metoprolol Succinate XL TAB* 25 MG PO SCH (09:03)
[2019-01-16] MEDS: Gemfibrozil TAB* 600 MG PO SCH ×2 (09:03→20:05)
[2019-01-16] MEDS: Atorvastatin* 80 MG TAB PO SCH (09:03)
[2019-01-16] MEDS: Docusate CAP* 100 MG PO SCH ×2 (09:03→20:05)
[2019-01-16] MEDS: Sevelamer TAB* 800 MG PO SCH ×3 (09:03→18:57)
[2019-01-16] MEDS: Pantoprazole TAB * 40 MG TAB PO SCH (09:04)
[2019-01-16] MEDS: Aspirin 81 mg CHEW TAB* 81 MG TAB.CHEW PO SCH (09:04)
[2019-01-16] MEDS: Heparin VIAL(*) 5000 UNITS/ML VIAL (FIVE THOUSAND) SUBCUT SCH ×2 (09:04→20:45)
[2019-01-16] MEDS: Morphine INJ* 2 MG/ML 1 ML SYRINGE (TWO MG - NEW SYRINGE VERSION) IV PRN (09:12)
--- NOTE | 2019-01-16 09:37 | PN ---
Progress Note - Progress Note Date of Service: 01/16/19 SOAP: Subjective: POD #3 left foot I&D. Doing ok. Bled through saline WTD dressing overnight. Denies significant pain. Denies f/c, n/v, CP/SOB Objective: Vital Signs: Temp Pulse Resp BP Pulse Ox 98.1 F 100 16 124/87 92 01/16/19 08:08 01/16/19 08:08 01/16/19 09:12 01/16/19 08:08 01/16/19 08:08 Gen: A&Ox3, NAD at rest LLE: Wound clean with bloody drainage. No erythema. Moderate TTP surrounding wound. Labs: Laboratory Results - last 24 hr 01/15/19 01/15/19 01/16/19 11:48 17:00 07:59 POC Glucose (mg/dL) 132 H 158 H 108 H Microbiology 01/11/19 15:05 Wound Anaerobic Culture - Final No Growth Day 4 01/11/19 15:05 Foot Left Skin and Soft Tissue MRSA/MSSA (PCR - Final Mrsa Negative S.aureus Positive 01/11/19 15:05 Foot Left Gram Stain - Final 01/11/19 15:05 Foot Left Wound Culture - Final No Growth Day 4 01/08/19 16:28 Peritoneal Fluid Sterile Body Fluid Culture - Final No Growth Day 5 01/08/19 16:28 Peritoneal Fluid Sterile Body Fluid Culture - Final No Growth Day 5 01/06/19 12:01 Wound Anaerobic Culture - Final No Growth Day 4 01/06/19 12:01 Foot Left Skin and Soft Tissue MRSA/MSSA (PCR - Final Mrsa Negative S.aureus Positive 01/06/19 12:01 Foot Left Gram Stain - Final 01/06/19 12:01 Foot Left Wound Culture - Final No Growth Day 4 01/08/19 16:28 Body Fluid Gram Stain - Final 01/03/19 10:13 Foot Left Gram Stain - Final 01/03/19 10:13 Foot Left Wound Culture - Final Staphylococcus Aureus 12/29/18 14:15 Blood Venous Aerobic Blood Culture - Final No Growth Day 5 12/29/18 14:15 Blood Venous Anaerobic Blood Culture - Final No Growth Day 5 12/29/18 16:00 Foot Left Gram Stain - Final 12/29/18 16:00 Foot Left Wound Culture - Final Staphylococcus Aureus Normal Nadja 12/29/18 16:00 Foot Left Skin and Soft Tissue MRSA/MSSA (PCR - Final Mrsa Negative S.aureus Negative 12/29/18 16:00 Foot Left Gram Stain - Final 12/29/18 16:00 Foot Left Wound Culture - Final Normal Nadja Assessment: POD #3 Left foot I&D Plan: New wound VAC applied today Cont IV abx Likely need repeat VAC change Thu or at bedside
[2019-01-16] MEDS: HYDROcodone/ACETAMIN 5-325 MG* 1 TAB PO PRN ×2 (13:24→20:05)
[2019-01-16] MEDS: ceFAZolin 1 GM ADVAN(*) 1 GM in NS 0.9% 50 ML* 50 ML IVPB SCH (14:51)
--- NOTE | 2019-01-16 14:52 | PN ---
Subjective Date of Service: 01/16/19 Interval History: wound vac reapplied today,. the dressing changed today. complains of some pain afterward but no chest pain. no nausea or vomit Past Medical History: Unchanged from Admission Objective Active Medications: Acetaminophen (Tylenol Tab*) 650 mg PO Q4H PRN PRN Reason: FEVER/PAIN Last Admin: 01/10/19 07:31 Dose: 650 mg Hydrocodone Bitart/Acetaminophen ([place] 5-325 Tab*) 2 tab PO Q4H PRN PRN Reason: PAIN Last Admin: 01/16/19 13:24 Dose: 2 tab Aspirin (Aspirin 81 Mg Chew Tab*) 81 mg PO DAILY [facility] Last Admin: 01/16/19 09:04 Dose: 81 mg Atorvastatin Calcium (Lipitor*) 80 mg PO QAM [facility] Last Admin: 01/16/19 09:03 Dose: 80 mg Calcium Carbonate (Tums*) 500 mg PO Q4H PRN PRN Reason: INDIGESTION Last Admin: 12/30/18 14:18 Dose: 500 mg Dextrose (D50w Syringe 50 Ml*) 12.5 gm IV PUSH .FOR FS < 60 - SS PRN PRN Reason: FS < 60 Docusate Sodium (Colace Cap*) 100 mg PO BID [facility] Last Admin: 01/16/19 09:03 Dose: 100 mg Gemfibrozil (Lopid Tab*) 600 mg PO BID [facility] Last Admin: 01/16/19 09:03 Dose: 600 mg Heparin Sodium (Porcine) (Heparin Vial(*)) 5,000 units SUBCUT Q12HR [facility] Last Admin: 01/16/19 09:04 Dose: 5,000 units Cefazolin Sodium 1 gm/ Sodium (Chloride) 50 mls @ 200 mls/hr IVPB Q24H [facility] Last Admin: 01/15/19 13:05 Dose: 200 mls/hr Insulin Human Lispro (Humalog*) 0 units SUBCUT AC [facility]; Protocol Last Admin: 01/16/19 12:11 Dose: Not Given Magnesium Hydroxide (Milk Of Magnesia Liq*) 30 ml PO BID PRN PRN Reason: CONSTIPATION Metoprolol Succinate (Toprol Xl Tab*) 25 mg PO QAM [facility] Last Admin: 01/16/19 09:03 Dose: 25 mg Morphine Sulfate (Morphine Inj (Syringe))*) 2 mg IV Q2H PRN PRN Reason: PAIN Last Admin: 01/16/19 09:12 Dose: 2 mg Ondansetron HCl (Zofran Inj*) 4 mg IV Q6H PRN PRN Reason: NAUSEA Ondansetron HCl (Zofran Odt Tab*) 4 mg SL Q6H PRN PRN Reason: NAUSEA/VOMITING Last Admin: 01/15/19 10:10 Dose: 4 mg Pantoprazole Sodium (Protonix Tab*) 40 mg PO DAILY [facility] Last Admin: 01/16/19 09:04 Dose: 40 mg Polyethylene Glycol/Electrolytes (Miralax*) 17 gm PO DAILY PRN PRN Reason: CONSTIPATION Senna (Senokot Tab*) 1 tab PO BEDTIME PRN PRN Reason: CONSTIPATION Last Admin: 01/15/19 20:38 Dose: 1 tab Sevelamer Carbonate (Renvela Tab*) 1,600 mg PO 0845,1245,1745 [facility] Last Admin: 01/16/19 13:24 Dose: 1,600 mg Vital Signs - 8 hr 01/16/19 01/16/19 01/16/19 08:08 09:12 10:00 Temperature 98.1 F Pulse Rate 100 Respiratory 16 16 16 Rate Blood Pressure 124/87 (mmHg) O2 Sat by Pulse 92 Oximetry 01/16/19 01/16/19 01/16/19 11:21 11:35 13:24 Temperature 98.1 F Pulse Rate 48 Respiratory 16 17 20 Rate Blood Pressure 120/47 (mmHg) O2 Sat by Pulse 100 Oximetry Oxygen Devices in Use Now: None Appearance: resting comfortably Eyes: No Scleral Icterus, - Ears/Nose/Mouth/Throat: Mucous Membranes Moist Neck: NL Appearance and Movements; NL JVP, Trachea Midline Respiratory: Symmetrical Chest Expansion and Respiratory Effort, Clear to Auscultation Cardiovascular: NL Sounds; No Murmurs; No JVD, RRR Abdominal: - - + BS soft non tender. distended. ascites fluid. Extremities: - - left foot dressing in place, wound vac in place Neurological: Alert and Oriented x 3 Result Diagrams: 01/13/19 06:31 01/13/19 06:31 Additional Lab and Data: Laboratory Results - last 24 hr 01/08/19 01/09/19 01/10/19 16:28 17:31 07:16 WBC RBC Hgb Hct MCV MCH MCHC RDW Plt Count MPV Neut % (Auto) Lymph % (Auto) Josephine % (Auto) Eos % (Auto) Baso % (Auto) Absolute Neuts (auto) Absolute Lymphs (auto) Absolute Monos (auto) Absolute Eos (auto) Absolute Basos (auto) Absolute Nucleated RBC Nucleated RBC % Sodium Potassium Chloride Carbon Dioxide Anion Gap BUN Creatinine Est GFR ( Amer) Est GFR (Non-Af Amer) BUN/Creatinine Ratio Glucose POC Glucose (mg/dL) 141 H 131 H Calcium Total Bilirubin AST ALT Alkaline Phosphatase C-Reactive Protein Total Protein Albumin Globulin Albumin/Globulin Ratio Fluid Cell Count Rvw By 01/10/19 01/10/19 01/10/19 09:57 09:57 12:27 WBC 6.9 RBC 3.32 L Hgb 10.3 L Hct 31 L MCV 93 MCH 31 MCHC 33 RDW 14 Plt Count 212 MPV 7.1 L Neut % (Auto) 82.2 Lymph % (Auto) 7.6 Josephine % (Auto) 7.6 Eos % (Auto) 1.9 Baso % (Auto) 0.7 Absolute Neuts (auto) 5.7 Absolute Lymphs (auto) 0.5 L Absolute Monos (auto) 0.5 Absolute Eos (auto) 0.1 Absolute Basos (auto) 0.0 Absolute Nucleated RBC 0.0 Nucleated RBC % 0.0 Sodium 132 L Potassium 4.2 Chloride 95 L Carbon Dioxide 26 Anion Gap 11 BUN 50 H Creatinine 6.31 H Est GFR ( Amer) 10.5 Est GFR (Non-Af Amer) 8.7 BUN/Creatinine Ratio 7.9 L Glucose 127 H POC Glucose (mg/dL) 127 H Calcium 8.2 L Total Bilirubin 0.50 AST 12 L ALT < 3 L Alkaline Phosphatase 99 C-Reactive Protein 242.28 H Total Protein 5.9 L Albumin 2.7 L Globulin 3.2 Albumin/Globulin Ratio 0.8 L Fluid Cell Count Rvw By 01/10/19 16:19 WBC RBC Hgb Hct MCV MCH MCHC RDW Plt Count MPV Neut % (Auto) Lymph % (Auto) Josephine % (Auto) Eos % (Auto) Baso % (Auto) Absolute Neuts (auto) Absolute Lymphs (auto) Absolute Monos (auto) Absolute Eos (auto) Absolute Basos (auto) Absolute Nucleated RBC Nucleated RBC % Sodium Potassium Chloride Carbon Dioxide Anion Gap BUN Creatinine Est GFR ( Amer) Est GFR (Non-Af Amer) BUN/Creatinine Ratio Glucose POC Glucose (mg/dL) 168 H Calcium Total Bilirubin AST ALT Alkaline Phosphatase C-Reactive Protein Total Protein Albumin Globulin Albumin/Globulin Ratio Fluid Cell Count Rvw By Microbiology and Other Data: Microbiology 01/06/19 12:01 Wound Anaerobic Culture - Preliminary No Growth Day 3 01/06/19 12:01 Foot Left Skin and Soft Tissue MRSA/MSSA (PCR - Final Mrsa Negative S.aureus Positive 01/06/19 12:01 Foot Left Gram Stain - Final 01/06/19 12:01 Foot Left Wound Culture - Preliminary No Growth Day 3 01/08/19 16:28 Body Fluid Gram Stain - Final 01/03/19 10:13 Foot Left Gram Stain - Final 01/03/19 10:13 Foot Left Wound Culture - Final Staphylococcus Aureus 12/29/18 14:15 Blood Venous Aerobic Blood Culture - Final No Growth Day 5 12/29/18 14:15 Blood Venous Anaerobic Blood Culture - Final No Growth Day 5 12/29/18 16:00 Foot Left Gram Stain - Final 12/29/18 16:00 Foot Left Wound Culture - Final Staphylococcus Aureus Normal Nadja 12/29/18 16:00 Foot Left Skin and Soft Tissue MRSA/MSSA (PCR - Final Mrsa Negative S.aureus Negative 12/29/18 16:00 Foot Left Gram Stain - Final 12/29/18 16:00 Foot Left Wound Culture - Final Normal Nadja Diagnostic Imagin02/11/18 - VL ANK/BRACHIAL INDICES: Ankle-brachial indices: Right: Value (SBP) Index Brachial: 164 Posterior tibialis: Noncompressible Dorsalis pedis: Noncompressible Digit: 56 0.33 Left: Value (SBP) Index Brachial: 172 Posterior tibialis: Noncompressible Dorsalis pedis: Noncompressible Digit: 47 0.27 Doppler waveforms (acquired at rest): In the interrogated lower extremity arteries, Doppler waveforms are monophasic and the bilateral lower extremities with notably reduced amplitude at the right posterior tibial artery. Volume pulse recordings (acquired at rest): Volume pulse recordings measures 17 mm on the right and 35 mm on the left, a significant Assess/Plan/Problems-Billing Mr El is a 73 yo M with a h/o ESRD on HD and chronic wounds (including left lateral forefoot amputation) followed by the wound clinic who was sent to the ER for evaluation of cellulitis of the L foot. MSSA from cultures on cefazolin. 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 Moderate-Large ascites noted (new) s/p 8L para 01/08. s/p I&D 01/11 given increased tenderness, elevated CRP. - Patient Problems (1) SBP (spontaneous bacterial peritonitis) Current Visit: Yes Status: Acute Code(s): K65.2 - SPONTANEOUS BACTERIAL PERITONITIS SNOMED Code(s): 63070236 Comment: - Pt had evidence of volume overload on CXR and moderate to large ascites on limited US. - s/p 8L para 01/08. his SAAG is 0.4. (not related to portal hypertension). It is most likely due to his volume overload and ESRD - His PMN 358 with only 313 RBC's makes it consistent with SBP. He is already on cefazolin and seems to be responding to it as well. no additional antibiotics required. - Will continue to observe if it re-occur he may need to have repeat paracentesis. His weight up to 212 lbs. Will monitor if it does not decrease after dialysis back to 205 on thursday he may need repeat paracentesis only if symptomatic. he is not complaining of any pain or shortness of breath (2) Ascites Current Visit: Yes Status: Acute Code(s): R18.8 - OTHER ASCITES SNOMED Code(s): 528163983 Comment: - Pt had evidence of volume overload on CXR and moderate to large ascites on limited US. - s/p 8L para 01/08. his SAAG is 0.4. (not related to portal hypertension). It is most likely due to his volume overload and ESRD - His PMN 358 with only 313 RBC's makes it consistent with SBP. He is already on cefazolin and seems to be responding to it as well. no additional antibiotics required. - Will continue to observe if it re-occur he may need to have repeat paracentesis. His weight up to 212 lbs. Will monitor if it does not decrease after dialysis back to 205 on thursday he may need repeat paracentesis only if symptomatic. he is not complaining of any pain or shortness of breath (3) Subacute osteomyelitis, left ankle and foot Current Visit: Yes Status: Acute Priority: High Code(s): M86.272 - SUBACUTE OSTEOMYELITIS, LEFT ANKLE AND FOOT SNOMED Code(s): 79959473 Comment: - Appreciate ID and wound consult - will continue cefazolin 1 gm IV daily day # 9 (as of 01/07/19) prior to that he did recieve combination of vanco/Zosyn/clinda as of 12/29/18! 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 Matias 01/06. - s/p repeat I&D 01/11/19, and repeat prelim culture shows again staph. Continue cefazolin and follow up final plan pending ID and ortho recommendations - Plan for repeat Wound vac in 2-3 days (4) ESRD (end stage renal disease) Current Visit: Yes Status: Acute Priority: Medium Code(s): N18.6 - END STAGE RENAL DISEASE SNOMED Code(s): 80636724 Comment: - Continue MWF dialysis. - Dr. Martínez consult appreciated. - I agree with Dr. Mendez that his target weight will have to be adjusted ~20lbs given the 8L volume removed. His weight as of 01/11/19 is down to 206 lbs, But his weight up to 212 lbs. If his weigth does not decrease after dialysis back to 205 on thursday he may need repeat paracentesis or discuss with nephrology to pull more fluid with each dialysis by 250-500 ml if BP allows (5) HTN (hypertension) Current Visit: Yes Status: Chronic Priority: High Code(s): I10 - ESSENTIAL (PRIMARY) HYPERTENSION SNOMED Code(s): 57008346 Comment: - BP low normal. - Continue metoprolol with hold parameters. - s/p 01/08 albumin 50gm given after the 8L para removed. (6) Type 2 diabetes mellitus Current Visit: Yes Status: Chronic Priority: Medium Comment: - Diabetes under good control. - Continue lispro sliding scale. (7) DVT prophylaxis Current Visit: Yes Status: Acute Priority: Low Code(s): AJO1686 - SNOMED Code(s): 635700411 Comment: SQ heparin Status and Disposition: inpatient, awaiting PT eval, final antibiotic recs. Ortho still doing debridements
[2019-01-16] MEDS: Senna TAB PO PRN (20:05)
[2019-01-16] MEDS: Melatonin 3 MG TAB PO PRN (21:49)
[2019-01-17 06:51] LABS: ABS Basophils 0.1 10^3/ul (0-0.2); ABS Eosinophils 0.3 10^3/ul (0-0.6); ABS Lymphocytes 0.9 10^3/ul (1.0-4.8); ABS Monocytes 0.6 10^3/ul (0-0.8); ABS Neutrophils 3.5 10^3/ul (1.5-7.7); Eosinophil % 5.1 %; Hematocrit 28 % (42-52); Hemoglobin 9.4 g/dL (14.0-18.0); Lymphocyte % 16.1 %; Mean Corpuscular HGB Conc 34 g/dL (31-36); Mean Corpuscular Hemoglobin 31 pg (27-31); Mean Corpuscular Volume 93 fL (80-94); Mean Platelet Volume 7.2 fL (7.4-10.4); Platelet Count 190 10^3/uL (150-450); Red Blood Count 3.04 10^6 /uL (4.18-5.48); Red Cell Distribution Width 15 % (10-15); White Blood Count 5.3 10^3/uL (3.5-10.8)
[2019-01-17 07:12] LABS: BUN/Creatinine Ratio 8.3 (8-20); Calcium 8.1 mg/dL (8.6-10.3); EGFR African American 10.8 (>60); EGFR Non-African American 8.9 (>60)
[2019-01-17 07:13] LABS: Potassium 5.2 mmol/L (3.5-5.0)
[2019-01-17] MEDS: Insulin LISPRO* 1 UNITS UNIT SUBCUT SCH ×3 (08:57→17:49)
[2019-01-17] MEDS: Docusate CAP* 100 MG PO SCH ×2 (09:24→21:02)
[2019-01-17] MEDS: Pantoprazole TAB * 40 MG TAB PO SCH (09:25)
[2019-01-17] MEDS: Atorvastatin* 80 MG TAB PO SCH (09:25)
[2019-01-17] MEDS: Aspirin 81 mg CHEW TAB* 81 MG TAB.CHEW PO SCH (09:25)
[2019-01-17] MEDS: Senna TAB PO PRN (09:25)
[2019-01-17] MEDS: HYDROcodone/ACETAMIN 5-325 MG* 1 TAB PO PRN ×2 (09:25→21:09)
[2019-01-17] MEDS: Metoprolol Succinate XL TAB* 25 MG PO SCH (09:25)
[2019-01-17] MEDS: Sevelamer TAB* 800 MG PO SCH ×3 (09:30→17:44)
[2019-01-17] MEDS: Gemfibrozil TAB* 600 MG PO SCH ×2 (09:30→20:59)
[2019-01-17] MEDS: Heparin VIAL(*) 5000 UNITS/ML VIAL (FIVE THOUSAND) SUBCUT SCH ×2 (09:31→21:02)
--- NOTE | 2019-01-17 09:48 | PN ---
Progress Note - Progress Note Date of Service: 01/17/19 SOAP: Subjective: CC: Left foot infection HPI: Mr. 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 Reports the pain in the left foot has mostly resolved except with dressing changes. Denies fever, chills , ABD pain, vomiting, or diarrhea. He reports intermittent nausea, and states that he has not moved his bowels in 3 days. He doesn't want to take a laxative until after dialysis today. Objective: Vital Signs - 8 hr 01/17/19 01/17/19 01/17/19 02:22 02:42 07:45 Temperature 98.1 F 97.9 F Pulse Rate 55 52 Respiratory 18 16 Rate Blood Pressure 116/47 111/42 (mmHg) O2 Sat by Pulse 96 96 96 Oximetry Physical Exam: General: NAD, sitting up in bed Neurological: Alert and Oriented x 4 HEENT: Moist MM, no thrush Cardiovascular: Heart rate regular, no murmur Respiratory: Lung sounds clear bilateral Abdominal: Bowel sounds hypoactive; ABD soft, non tender and slightly distended Skin: Dressing to left foot clean, dry and intact. No erythema extending from the dressing Laboratory Results - last 24 hr 01/16/19 01/16/19 01/17/19 12:06 17:19 06:15 WBC 5.3 RBC 3.04 L Hgb 9.4 L Hct 28 L MCV 93 MCH 31 MCHC 34 RDW 15 Plt Count 190 MPV 7.2 L Neut % (Auto) 66.4 Lymph % (Auto) 16.1 [place] % (Auto) 11.0 Eos % (Auto) 5.1 Baso % (Auto) 1.4 Absolute Neuts (auto) 3.5 Absolute Lymphs (auto) 0.9 L Absolute Monos (auto) 0.6 Absolute Eos (auto) 0.3 Absolute Basos (auto) 0.1 Absolute Nucleated RBC 0.0 Nucleated RBC % 0.0 POC Glucose (mg/dL) 100 118 H 01/17/19 06:15 Sodium 133 L Potassium 5.2 H Chloride 98 L Carbon Dioxide 25 Anion Gap 10 BUN 51 H Creatinine 6.17 H Est GFR ( Amer) 10.8 Est GFR (Non-Af Amer) 8.9 BUN/Creatinine Ratio 8.3 Glucose 115 H Calcium 8.1 L Microbiology 01/11/19 15:05 Anaerobic Culture - Final Wound No Growth Day 4 01/11/19 15:05 Skin and Soft Tissue MRSA/MSSA (PCR - Final Foot Left Mrsa Negative S.aureus Positive Gram Stain - Final Wound Culture - Final No Growth Day 4 01/08/19 16:28 Sterile Body Fluid Culture - Final Peritoneal Fluid No Growth Day 5 Sterile Body Fluid Culture - Final No Growth Day 5 01/06/19 12:01 Anaerobic Culture - Final Wound No Growth Day 4 01/06/19 12:01 Skin and Soft Tissue MRSA/MSSA (PCR - Final Foot Left Mrsa Negative S.aureus Positive Gram Stain - Final Wound Culture - Final No Growth Day 4 01/08/19 16:28 Gram Stain - Final Body Fluid 01/03/19 10:13 Gram Stain - Final Foot Left Wound Culture - Final Staphylococcus Aureus 12/29/18 14:15 Aerobic Blood Culture - Final Blood Venous No Growth Day 5 Anaerobic Blood Culture - Final No Growth Day 5 12/29/18 16:00 Gram Stain - Final Foot Left Wound Culture - Final Staphylococcus Aureus Normal Jero 12/29/18 16:00 Skin and Soft Tissue MRSA/MSSA (PCR - Final Foot Left Mrsa Negative S.aureus Negative Gram Stain - Final Wound Culture - Final Normal Jero Assessment: 1. Left foot cellulitis with acute and chronic osteomyelitis of the 5th metatarsal. Initial left foot wound culture with normal jero and staph aureus. Repeat culture on 01/03 with staph aureus. S/P left foot I+D and excision of 5th metatarsal base, POD # 11. Cultures obtained in the OR on 01/06 with PCR positive for staph aureus and no growth day 5. S/P extensive debridement of the left lateral mid foot with ostectomy, partial cuboid resection, I+D and VAC dressing on 01/11/19, cultures obtained in the OR with PCR positive for staph aureus, no growth in final cultures. Last I+D was 4 days ago. Pathology from the bone sample from the original surgery with acute and chronic osteomyelitis. Afebrile and no leukocytosis. 2. DM2 with neuropathy. 3. ESRD on hemodialysis. Plan: Continue Cefazolin for now, day -56. Will need to have an extended course of ABX.
[2019-01-17] MEDS: Morphine INJ* 2 MG/ML 1 ML SYRINGE (TWO MG - NEW SYRINGE VERSION) IV PRN ×4 (10:48→21:02)
[2019-01-17] MEDS ORDERED: EPOETIN ALFA-EPBX * 2,000 UNIT/ML VIAL IV ONE (12:00)
[2019-01-17] MEDS ORDERED: Heparin DIALYSIS ONLY(*) 1,000 UNITS/ML VIAL DIALYSIS ONE (12:00)
[2019-01-17] MEDS ORDERED: EPOETIN ALFA-EPBX * 3,000 UNIT/ML VIAL IV ONE (12:00)
--- NOTE | 2019-01-17 15:54 | PN ---
Progress Note - Progress Note Date of Service: 01/17/19 SOAP: Subjective: []Pt seen at bedside today. Wound vac was removed 01/16 due to malfunction. Denies fever or chills. LLE remains painful. Objective: []Gen: NAD, alert and oriented x 3 LLE: wound vac sponge removed, wound bed bloody without purulence. + moderately tender lateral foot, no erythema. NVI distally. Calves supple and nontender Assessment: POD #4 Left foot I&D Plan: []Betadine wet to dry dressing placed today. Continue daily betadine wet to dry dressing changes. Tentative plan for OR for washout and vac placement. Cont IV abx - cefazolin Vital Signs Temp 97.9 F 01/17/19 07:45 Pulse 52 01/17/19 07:45 Resp 18 01/17/19 13:08 BP 111/42 01/17/19 07:45 Pulse Ox 96 01/17/19 07:45 Intake & Output 01/16/19 01/17/19 01/17/19 18:59 06:59 18:59 Intake Total 400 0 0 Output Total 250 100 50 Balance 150 -100 -50 Weight 204 lb 11.2 oz Intake: IV Fluids 30 NS (0.9%) 30 IVPB 50 ABX - CEFAZOLIN 50 Oral 320 0 0 Output: Urine 250 100 50 Other: Estimated Void Medium # Bowel Movements 0 # Voids 2 0 Laboratory Last Values WBC 5.3 10^3/uL (3.5-10.8) 01/17/19 06:15 RBC 3.04 10^6 /uL (4.18-5.48) L 01/17/19 06:15 Hgb 9.4 g/dL (14.0-18.0) L 01/17/19 06:15 Hct 28 % (42-52) L 01/17/19 06:15 MCV 93 fL (80-94) 01/17/19 06:15 MCH 31 pg (27-31) 01/17/19 06:15 MCHC 34 g/dL (31-36) 01/17/19 06:15 RDW 15 % (10-15) 01/17/19 06:15 Plt Count 190 10^3/uL (150-450) 01/17/19 06:15 MPV 7.2 fL (7.4-10.4) L 01/17/19 06:15 Neut % (Auto) 66.4 % 01/17/19 06:15 Lymph % (Auto) 16.1 % 01/17/19 06:15 [place] % (Auto) 11.0 % 01/17/19 06:15 Eos % (Auto) 5.1 % 01/17/19 06:15 Baso % (Auto) 1.4 % 01/17/19 06:15 Absolute Neuts (auto) 3.5 10^3/ul (1.5-7.7) 01/17/19 06:15 Absolute Lymphs (auto) 0.9 10^3/ul (1.0-4.8) L 01/17/19 06:15 Absolute Monos (auto) 0.6 10^3/ul (0-0.8) 01/17/19 06:15 Absolute Eos (auto) 0.3 10^3/ul (0-0.6) 01/17/19 06:15 Absolute Basos (auto) 0.1 10^3/ul (0-0.2) 01/17/19 06:15 Absolute Nucleated RBC 0.0 10^3/ul 01/17/19 06:15 Nucleated RBC % 0.0 01/17/19 06:15 INR (Anticoag Therapy) 1.27 (0.82-1.09) H 01/06/19 06:14 Sodium 133 mmol/L (135-145) L 01/17/19 06:15 Potassium 5.2 mmol/L (3.5-5.0) H 01/17/19 06:15 Chloride 98 mmol/L (101-111) L 01/17/19 06:15 Carbon Dioxide 25 mmol/L (22-32) 01/17/19 06:15 Anion Gap 10 mmol/L (2-11) 01/17/19 06:15 BUN 51 mg/dL (6-24) H 01/17/19 06:15 Creatinine 6.17 mg/dL (0.67-1.17) H 01/17/19 06:15 1/Creatinine 0.17 01/03/19 08:24 Est GFR ( Amer) 10.8 (>60) 01/17/19 06:15 Est GFR (Non-Af Amer) 8.9 (>60) 01/17/19 06:15 BUN/Creatinine Ratio 8.3 (8-20) 01/17/19 06:15 Glucose 115 mg/dL (70-100) H 01/17/19 06:15 POC Glucose (mg/dL) 101 mg/dL (70-100) H 01/17/19 08:10 Lactic Acid 2.2 mmol/L (0.5-2.0) H* 12/29/18 14:16 Calcium 8.1 mg/dL (8.6-10.3) L 01/17/19 06:15 Phosphorus 3.7 mg/dL (2.5-5.0) 01/13/19 06:31 Magnesium 1.9 mg/dL (1.9-2.7) 01/13/19 06:31 Total Bilirubin 0.50 mg/dL (0.2-1.0) 01/10/19 09:57 Direct Bilirubin 0.20 mg/dL (0.03-0.18) H 01/08/19 06:31 Indirect Bilirubin 0.4 mg/dL (0.3-1.0) 01/08/19 06:31 AST 12 U/L (13-39) L 01/10/19 09:57 ALT < 3 U/L (7-52) L 01/10/19 09:57 Alkaline Phosphatase 99 U/L (34-104) 01/10/19 09:57 C-Reactive Protein 255.64 mg/L (<8.01) H 01/11/19 07:43 Total Protein 5.9 g/dL (6.4-8.9) L 01/10/19 09:57 Albumin 2.7 g/dL (3.2-5.2) L 01/10/19 09:57 Globulin 3.2 g/dL (2-4) 01/10/19 09:57 Albumin/Globulin Ratio 0.8 (1-3) L 01/10/19 09:57 Fluid Source Peritoneal 01/08/19 16:28 Fluid Volume 50.0 mL 01/08/19 16:28 Fluid Color Yellow 01/08/19 16:28 Fluid Appearance Clear 01/08/19 16:28 Fluid WBC 358 /mcL (0-090878) 01/08/19 16:28 Fluid RBC 313 /mcL 01/08/19 16:28 Fluid Tot Cell Count 100 01/08/19 16:28 Fluid Neutrophils 36 % 01/08/19 16:28 Fluid Band Neutrophils 1 % 01/08/19 16:28 Fluid Lymphocytes 4 % 01/08/19 16:28 Fluid Monocytes 58 % 01/08/19 16:28 Fluid Eosinophils 1 % 01/08/19 16:28 Fluid Other Cells 2 01/08/19 16:28 Fluid Cell Count Rvw By 01/08/19 16:28 Fluid Total Protein 4.1 g/dL 01/08/19 16:28 Fluid Comment 01/08/19 16:28 Random Vancomycin 6.3 mcg/mL 12/31/18 11:00 Hepatitis B Antibody Not immune (Immune) A 12/31/18 11:00 Hep Bs Antigen Negative (Negative) 12/31/18 11:00 Miscellaneous Test See comments 01/08/19 16:28
[2019-01-17] MEDS: ceFAZolin 1 GM ADVAN(*) 1 GM in NS 0.9% 50 ML* 50 ML IVPB SCH (16:16)
[2019-01-17 17:04] LABS: C Reactive Protein 152.01 mg/L (<8.01)
[2019-01-17] MEDS: Ondansetron ODT TAB* 4 MG SL PRN (17:44)
--- NOTE | 2019-01-17 19:03 | PN ---
Progress Note - Progress Note Date of Service: 01/17/19 Note: I saw Rickie this afternoon. He had soaked blood through his dressing. I changed this. The wound has no significant surrounding erythema and no purulence. There is gentle oozing of blood but no brisk bleeding. I placed a Betadine wet-to-dry dressing, and a gentle compression dressing over it. We discussed potentially a repeat I&D and trial of a VAC later this week. In the meantime, daily Betadine wet to dry dressing changes. Left lower extremity, elevation and nonweightbearing. Jesu Fraire MD
--- NOTE | 2019-01-17 19:29 | PN ---
Subjective Date of Service: 01/17/19 Interval History: HOSPITALIST PROGRESS NOTE Patient seen and examined at bedside. Care reviewed and d/w Fiordaliza Guillen RN. He is upset today. Frustrated the wound vac is not working, "no one is doing anything for me". Pain is 5/10 with pain meds. Family History: Unchanged from Admission Social History: Unchanged from Admission Past Medical History: Unchanged from Admission Objective Active Medications: Acetaminophen (Tylenol Tab*) 650 mg PO Q4H PRN PRN Reason: FEVER/PAIN Last Admin: 01/10/19 07:31 Dose: 650 mg Hydrocodone Bitart/Acetaminophen ([place] 5-325 Tab*) 2 tab PO Q4H PRN PRN Reason: PAIN Aspirin (Aspirin 81 Mg Chew Tab*) 81 mg PO DAILY [facility] Last Admin: 01/17/19 09:25 Dose: 81 mg Atorvastatin Calcium (Lipitor*) 80 mg PO QAM [facility] Last Admin: 01/17/19 09:25 Dose: 80 mg Calcium Carbonate (Tums*) 500 mg PO Q4H PRN PRN Reason: INDIGESTION Last Admin: 12/30/18 14:18 Dose: 500 mg Dextrose (D50w Syringe 50 Ml*) 12.5 gm IV PUSH .FOR FS < 60 - SS PRN PRN Reason: FS < 60 Docusate Sodium (Colace Cap*) 100 mg PO BID [facility] Last Admin: 01/17/19 09:24 Dose: 100 mg Gemfibrozil (Lopid Tab*) 600 mg PO BID [facility] Last Admin: 01/17/19 09:30 Dose: 600 mg Heparin Sodium (Porcine) (Heparin Vial(*)) 5,000 units SUBCUT Q12HR [facility] Last Admin: 01/17/19 09:31 Dose: 5,000 units Cefazolin Sodium 1 gm/ Sodium (Chloride) 50 mls @ 200 mls/hr IVPB Q24H [facility] Last Admin: 01/17/19 16:16 Dose: 200 mls/hr Insulin Human Lispro (Humalog*) 0 units SUBCUT AC [facility]; Protocol Last Admin: 01/17/19 17:49 Dose: Not Given Magnesium Hydroxide (Milk Of Magnesia Liq*) 30 ml PO BID PRN PRN Reason: CONSTIPATION Melatonin (Melatonin) 3 mg PO BEDTIME PRN PRN Reason: SLEEP Last Admin: 01/16/19 21:49 Dose: 3 mg Metoprolol Succinate (Toprol Xl Tab*) 25 mg PO QAM [facility] Last Admin: 01/17/19 09:25 Dose: 25 mg Morphine Sulfate (Morphine Inj (Syringe))*) 2 mg IV Q2H PRN PRN Reason: PAIN Last Admin: 01/17/19 16:12 Dose: 2 mg Ondansetron HCl (Zofran Inj*) 4 mg IV Q6H PRN PRN Reason: NAUSEA Last Admin: 01/17/19 09:24 Dose: 4 mg Ondansetron HCl (Zofran Odt Tab*) 4 mg SL Q6H PRN PRN Reason: NAUSEA/VOMITING Last Admin: 01/17/19 17:44 Dose: 4 mg Pantoprazole Sodium (Protonix Tab*) 40 mg PO DAILY [facility] Last Admin: 01/17/19 09:25 Dose: 40 mg Polyethylene Glycol/Electrolytes (Miralax*) 17 gm PO DAILY PRN PRN Reason: CONSTIPATION Senna (Senokot Tab*) 1 tab PO BEDTIME PRN PRN Reason: CONSTIPATION Last Admin: 01/17/19 09:25 Dose: 1 tab Sevelamer Carbonate (Renvela Tab*) 1,600 mg PO [id number] [facility] Last Admin: 01/17/19 17:44 Dose: 1,600 mg Vital Signs - 8 hr 01/17/19 01/17/19 01/17/19 13:08 16:12 17:01 Respiratory 18 18 Rate O2 Sat by Pulse 96 Oximetry 01/17/19 17:51 Respiratory 18 Rate O2 Sat by Pulse Oximetry Oxygen Devices in Use Now: None Appearance: Elderly gentleman sitting up in bed in [facility]. Eyes: No Scleral Icterus Ears/Nose/Mouth/Throat: Mucous Membranes Moist Neck: Trachea Midline Respiratory: Symmetrical Chest Expansion and Respiratory Effort, Clear to Auscultation Cardiovascular: RRR - Normal S1 and S2 Abdominal: - - Soft, NT, non distended, + ascites Extremities: - - CDI to left foot Neurological: Alert and Oriented x 3, NL Muscle Strength and Tone Result Diagrams: 01/17/19 06:15 01/17/19 06:15 Microbiology and Other Data: Microbiology 01/06/19 12:01 Wound Anaerobic Culture - Preliminary No Growth Day 3 01/06/19 12:01 Foot Left Skin and Soft Tissue MRSA/MSSA (PCR - Final Mrsa Negative S.aureus Positive 01/06/19 12:01 Foot Left Gram Stain - Final 01/06/19 12:01 Foot Left Wound Culture - Preliminary No Growth Day 3 01/08/19 16:28 Body Fluid Gram Stain - Final 01/03/19 10:13 Foot Left Gram Stain - Final 01/03/19 10:13 Foot Left Wound Culture - Final Staphylococcus Aureus 12/29/18 14:15 Blood Venous Aerobic Blood Culture - Final No Growth Day 5 12/29/18 14:15 Blood Venous Anaerobic Blood Culture - Final No Growth Day 5 12/29/18 16:00 Foot Left Gram Stain - Final 12/29/18 16:00 Foot Left Wound Culture - Final Staphylococcus Aureus Normal Nadja 12/29/18 16:00 Foot Left Skin and Soft Tissue MRSA/MSSA (PCR - Final Mrsa Negative S.aureus Negative 12/29/18 16:00 Foot Left Gram Stain - Final 12/29/18 16:00 Foot Left Wound Culture - Final Normal Nadja Assess/Plan/Problems-Billing Assessment: Mr El is a 73 yo M with a h/o ESRD on HD and chronic wounds (including left lateral forefoot amputation) followed by the wound clinic who was sent to the ER for evaluation of cellulitis of the L foot. - Patient Problems (1) Ascites Comment: - Pt had evidence of volume overload on CXR and moderate to large ascites on limited US. - s/p 8L paracentesis 01/08, with SAAG 0.4, - WBC 358 with 36% neutrophils and 313 RBCs - not compatible with SBP as he only has 128 neutrophils. - Fluid culture is negative. - Check RUQ US for liver morphology. (2) Subacute osteomyelitis, left ankle and foot Comment: - Ortho input appreciated - plan to return to OR 01/20 for repeat I&D and trial of wound Vac. - Culture grew MSSA - continue Cefazolin # 11. (3) ESRD (end stage renal disease) Comment: - Continue MWF dialysis. (4) HTN (hypertension) Comment: - BP controlled. - Continue metoprolol with hold parameters. (5) Type 2 diabetes mellitus Comment: - Check A1c. - Continue lispro sliding scale. (6) DVT prophylaxis Comment: - SQ heparin (7) Full code status Comment: Status and Disposition: Inpatient.
[2019-01-18] MEDS: Morphine INJ* 2 MG/ML 1 ML SYRINGE (TWO MG - NEW SYRINGE VERSION) IV PRN ×2 (00:09→10:47)
[2019-01-18 07:03] LABS: ABS Basophils 0.1 10^3/ul (0-0.2); ABS Eosinophils 0.2 10^3/ul (0-0.6); ABS Lymphocytes 0.9 10^3/ul (1.0-4.8); ABS Monocytes 0.6 10^3/ul (0-0.8); ABS Neutrophils 3.9 10^3/ul (1.5-7.7); Eosinophil % 3.9 %; Hematocrit 27 % (42-52); Hemoglobin 9.1 g/dL (14.0-18.0); Lymphocyte % 15.7 %; Mean Corpuscular HGB Conc 34 g/dL (31-36); Mean Corpuscular Hemoglobin 31 pg (27-31); Mean Corpuscular Volume 92 fL (80-94); Mean Platelet Volume 7.3 fL (7.4-10.4); Platelet Count 201 10^3/uL (150-450); Red Blood Count 2.95 10^6 /uL (4.18-5.48); Red Cell Distribution Width 14 % (10-15); White Blood Count 5.7 10^3/uL (3.5-10.8)
[2019-01-18 07:40] LABS: ALT < 3 U/L (7-52); AST 18 U/L (13-39); Albumin 2.4 g/dL (3.2-5.2); Albumin/Globulin Ratio 0.7 (1-3); Alkaline Phosphatase 99 U/L (34-104); Anion Gap 8 mmol/L (2-11); BUN/Creatinine Ratio 7.8 (8-20); Blood Urea Nitrogen 38 mg/dL (6-24); CO2 Carbon Dioxide 30 mmol/L (22-32); Calcium 8.1 mg/dL (8.6-10.3); Chloride 97 mmol/L (101-111); EGFR African American 14.1 (>60); EGFR Non-African American 11.7 (>60); Globulin 3.4 g/dL (2-4); Glucose 116 mg/dL (70-100); Potassium 4.7 mmol/L (3.5-5.0); Sodium 135 mmol/L (135-145); Total Protein 5.8 g/dL (6.4-8.9)
[2019-01-18] MEDS: Insulin LISPRO* 1 UNITS UNIT SUBCUT SCH ×3 (08:53→17:01)
--- NOTE | 2019-01-18 10:48 | PN ---
Progress Note - Progress Note Date of Service: 01/18/19 SOAP: Subjective: []Pt seen at bedside. Left foot pain is well controlled while at rest, painful with any movement. Denies fever or chills. Objective: [] Gen: NAD, alert and oriented x 3 LLE: Betadine wet to dry dressing changed. Wound bed remains bloody without purulence. + mildly tender lateral foot, no erythema. NVI distally. Calves supple and nontender Assessment: POD #5 Left foot I&D Plan: []Betadine wet to dry dressing changed. Continue daily betadine wet to dry dressing changes. Tentative plan for OR for washout and vac placement. Cont IV abx - cefazolin Vital Signs Temp 98.3 F 01/18/19 03:20 Pulse 55 01/18/19 07:55 Resp 16 01/18/19 07:55 BP 108/51 01/18/19 07:55 Pulse Ox 95 01/18/19 07:55 Intake & Output 01/17/19 01/18/19 01/18/19 18:59 06:59 18:59 Intake Total 80 220 Output Total 50 Balance 30 220 Weight 200 lb 9.6 oz Intake: IV Fluids 25 10 NS (0.9%) 25 10 IVPB 55 ABX - CEFAZOLIN 55 Oral 0 210 Output: Urine 50 Other: Estimated Void Medium # Bowel Movements 1 0 Estimated Stool Amount Large # Voids 1 Laboratory Last Values WBC 5.7 10^3/uL (3.5-10.8) 01/18/19 06:45 RBC 2.95 10^6 /uL (4.18-5.48) L 01/18/19 06:45 Hgb 9.1 g/dL (14.0-18.0) L 01/18/19 06:45 Hct 27 % (42-52) L 01/18/19 06:45 MCV 92 fL (80-94) 01/18/19 06:45 MCH 31 pg (27-31) 01/18/19 06:45 MCHC 34 g/dL (31-36) 01/18/19 06:45 RDW 14 % (10-15) 01/18/19 06:45 Plt Count 201 10^3/uL (150-450) 01/18/19 06:45 MPV 7.3 fL (7.4-10.4) L 01/18/19 06:45 Neut % (Auto) 68.2 % 01/18/19 06:45 Lymph % (Auto) 15.7 % 01/18/19 06:45 [place] % (Auto) 10.8 % 01/18/19 06:45 Eos % (Auto) 3.9 % 01/18/19 06:45 Baso % (Auto) 1.4 % 01/18/19 06:45 Absolute Neuts (auto) 3.9 10^3/ul (1.5-7.7) 01/18/19 06:45 Absolute Lymphs (auto) 0.9 10^3/ul (1.0-4.8) L 01/18/19 06:45 Absolute Monos (auto) 0.6 10^3/ul (0-0.8) 01/18/19 06:45 Absolute Eos (auto) 0.2 10^3/ul (0-0.6) 01/18/19 06:45 Absolute Basos (auto) 0.1 10^3/ul (0-0.2) 01/18/19 06:45 Absolute Nucleated RBC 0.0 10^3/ul 01/18/19 06:45 Nucleated RBC % 0.0 01/18/19 06:45 INR (Anticoag Therapy) 1.27 (0.82-1.09) H 01/06/19 06:14 Sodium 135 mmol/L (135-145) 01/18/19 06:45 Potassium 4.7 mmol/L (3.5-5.0) 01/18/19 06:45 Chloride 97 mmol/L (101-111) L 01/18/19 06:45 Carbon Dioxide 30 mmol/L (22-32) 01/18/19 06:45 Anion Gap 8 mmol/L (2-11) 01/18/19 06:45 BUN 38 mg/dL (6-24) H 01/18/19 06:45 Creatinine 4.90 mg/dL (0.67-1.17) H 01/18/19 06:45 1/Creatinine 0.17 01/03/19 08:24 Est GFR ( Amer) 14.1 (>60) 01/18/19 06:45 Est GFR (Non-Af Amer) 11.7 (>60) 01/18/19 06:45 BUN/Creatinine Ratio 7.8 (8-20) L 01/18/19 06:45 Glucose 116 mg/dL (70-100) H 01/18/19 06:45 POC Glucose (mg/dL) 131 mg/dL (70-100) H 01/18/19 07:25 Hemoglobin A1c 6.4 % (4.0-5.6) H 01/18/19 06:45 Lactic Acid 2.2 mmol/L (0.5-2.0) H* 12/29/18 14:16 Calcium 8.1 mg/dL (8.6-10.3) L 01/18/19 06:45 Phosphorus 3.7 mg/dL (2.5-5.0) 01/13/19 06:31 Magnesium 1.9 mg/dL (1.9-2.7) 01/13/19 06:31 Total Bilirubin 0.40 mg/dL (0.2-1.0) 01/18/19 06:45 Direct Bilirubin 0.20 mg/dL (0.03-0.18) H 01/08/19 06:31 Indirect Bilirubin 0.4 mg/dL (0.3-1.0) 01/08/19 06:31 AST 18 U/L (13-39) 01/18/19 06:45 ALT < 3 U/L (7-52) L 01/18/19 06:45 Alkaline Phosphatase 99 U/L (34-104) 01/18/19 06:45 C-Reactive Protein 152.01 mg/L (<8.01) H 01/17/19 06:15 Total Protein 5.8 g/dL (6.4-8.9) L 01/18/19 06:45 Albumin 2.4 g/dL (3.2-5.2) L 01/18/19 06:45 Globulin 3.4 g/dL (2-4) 01/18/19 06:45 Albumin/Globulin Ratio 0.7 (1-3) L 01/18/19 06:45 Fluid Source Peritoneal 01/08/19 16:28 Fluid Volume 50.0 mL 01/08/19 16:28 Fluid Color Yellow 01/08/19 16:28 Fluid Appearance Clear 01/08/19 16:28 Fluid WBC 358 /mcL ([id number]) 01/08/19 16:28 Fluid RBC 313 /mcL 01/08/19 16:28 Fluid Tot Cell Count 100 01/08/19 16:28 Fluid Neutrophils 36 % 01/08/19 16:28 Fluid Band Neutrophils 1 % 01/08/19 16:28 Fluid Lymphocytes 4 % 01/08/19 16:28 Fluid Monocytes 58 % 01/08/19 16:28 Fluid Eosinophils 1 % 01/08/19 16:28 Fluid Other Cells 2 01/08/19 16:28 Fluid Cell Count Rvw By 01/08/19 16:28 Fluid Total Protein 4.1 g/dL 01/08/19 16:28 Fluid Comment 01/08/19 16:28 Random Vancomycin 6.3 mcg/mL 12/31/18 11:00 Hepatitis B Antibody Not immune (Immune) A 12/31/18 11:00 Hep Bs Antigen Negative (Negative) 12/31/18 11:00 Miscellaneous Test See comments 01/08/19 16:28
[2019-01-18] MEDS: Sevelamer TAB* 800 MG PO SCH ×3 (10:52→18:15)
[2019-01-18] MEDS: HYDROcodone/ACETAMIN 5-325 MG* 1 TAB PO PRN (13:42)
[2019-01-18] MEDS: Docusate CAP* 100 MG PO SCH (13:43)
[2019-01-18] MEDS: Heparin VIAL(*) 5000 UNITS/ML VIAL (FIVE THOUSAND) SUBCUT SCH ×2 (13:43→21:55)
[2019-01-18] MEDS: Gemfibrozil TAB* 600 MG PO SCH ×2 (13:43→21:55)
[2019-01-18] MEDS: Pantoprazole TAB * 40 MG TAB PO SCH (13:43)
[2019-01-18] MEDS: ceFAZolin 1 GM ADVAN(*) 1 GM in NS 0.9% 50 ML* 50 ML IVPB SCH (13:43)
[2019-01-18] MEDS: Atorvastatin* 80 MG TAB PO SCH (13:43)
[2019-01-18] MEDS: Metoprolol Succinate XL TAB* 25 MG PO SCH (13:44)
[2019-01-18] MEDS: Aspirin 81 mg CHEW TAB* 81 MG TAB.CHEW PO SCH (13:44)
--- NOTE | 2019-01-18 18:19 | PN ---
Subjective Date of Service: 01/18/19 Interval History: No overnight events. Patient only has pain on dressing changes and denies pain, discomfort, or other symptoms currently. Tentative plan for OR on 01/20 for washout and vac re-placement. Pt states he does not want the vac again. Family History: Unchanged from Admission Social History: Unchanged from Admission Past Medical History: Unchanged from Admission Objective Active Medications: Acetaminophen (Tylenol Tab*) 650 mg PO Q4H PRN PRN Reason: FEVER/PAIN Last Admin: 01/10/19 07:31 Dose: 650 mg Hydrocodone Bitart/Acetaminophen ([place] 5-325 Tab*) 2 tab PO Q4H PRN PRN Reason: PAIN Last Admin: 01/18/19 13:42 Dose: 2 tab Aspirin (Aspirin 81 Mg Chew Tab*) 81 mg PO DAILY [facility] Last Admin: 01/18/19 13:44 Dose: 81 mg Atorvastatin Calcium (Lipitor*) 80 mg PO QAM [facility] Last Admin: 01/18/19 13:43 Dose: 80 mg Calcium Carbonate (Tums*) 500 mg PO Q4H PRN PRN Reason: INDIGESTION Last Admin: 12/30/18 14:18 Dose: 500 mg Dextrose (D50w Syringe 50 Ml*) 12.5 gm IV PUSH .FOR FS < 60 - SS PRN PRN Reason: FS < 60 Gemfibrozil (Lopid Tab*) 600 mg PO BID [facility] Last Admin: 01/18/19 13:43 Dose: 600 mg Heparin Sodium (Porcine) (Heparin Vial(*)) 5,000 units SUBCUT Q12HR [facility] Last Admin: 01/18/19 13:43 Dose: 5,000 units Cefazolin Sodium 1 gm/ Sodium (Chloride) 50 mls @ 200 mls/hr IVPB Q24H [facility] Last Admin: 01/18/19 13:43 Dose: 200 mls/hr Insulin Human Lispro (Humalog*) 0 units SUBCUT AC [facility]; Protocol Last Admin: 01/18/19 17:01 Dose: Not Given Magnesium Hydroxide (Milk Of Magnesia Liq*) 30 ml PO BID PRN PRN Reason: CONSTIPATION Melatonin (Melatonin) 3 mg PO BEDTIME PRN PRN Reason: SLEEP Last Admin: 01/16/19 21:49 Dose: 3 mg Metoprolol Succinate (Toprol Xl Tab*) 25 mg PO QAM [facility] Last Admin: 01/18/19 13:44 Dose: Not Given Morphine Sulfate (Morphine Inj (Syringe))*) 2 mg IV Q2H PRN PRN Reason: PAIN Last Admin: 01/18/19 10:47 Dose: 2 mg Ondansetron HCl (Zofran Odt Tab*) 4 mg SL Q6H PRN PRN Reason: NAUSEA/VOMITING Last Admin: 01/17/19 17:44 Dose: 4 mg Pantoprazole Sodium (Protonix Tab*) 40 mg PO DAILY [facility] Last Admin: 01/18/19 13:43 Dose: 40 mg Polyethylene Glycol/Electrolytes (Miralax*) 17 gm PO DAILY PRN PRN Reason: CONSTIPATION Senna (Senokot Tab*) 1 tab PO BEDTIME PRN PRN Reason: CONSTIPATION Last Admin: 01/17/19 09:25 Dose: 1 tab Sevelamer Carbonate (Renvela Tab*) 1,600 mg PO 0845,1245,1745 [facility] Last Admin: 01/18/19 18:15 Dose: 1,600 mg Vital Signs - 8 hr Oxygen Devices in Use Now: None Eyes: No Scleral Icterus Ears/Nose/Mouth/Throat: Clear Oropharnyx, Mucous Membranes Moist Neck: Trachea Midline Respiratory: Symmetrical Chest Expansion and Respiratory Effort, Clear to Auscultation Cardiovascular: RRR - no mgr Abdominal: NL Sounds; No Tenderness; No Distention, - - + fluid wave Extremities: - - pt declines removal of newly placed dressing; appears c/d/i without dischrage Neurological: Alert and Oriented x 3, NL Sensation Result Diagrams: 01/18/19 06:45 01/18/19 06:45 Microbiology and Other Data: Microbiology 01/06/19 12:01 Foot Left Skin and Soft Tissue MRSA/MSSA (PCR - Final Mrsa Negative S.aureus Positive 01/06/19 12:01 Foot Left Gram Stain - Final 01/06/19 12:01 Foot Left Wound Culture - Preliminary No Growth Day 3 01/08/19 16:28 Body Fluid Gram Stain - Final 01/03/19 10:13 Foot Left Gram Stain - Final 01/03/19 10:13 Foot Left Wound Culture - Final Staphylococcus Aureus 12/29/18 14:15 Blood Venous Aerobic Blood Culture - Final No Growth Day 5 12/29/18 14:15 Blood Venous Anaerobic Blood Culture - Final No Growth Day 5 12/29/18 16:00 Foot Left Gram Stain - Final 12/29/18 16:00 Foot Left Wound Culture - Final Staphylococcus Aureus Normal Nadja 12/29/18 16:00 Foot Left Skin and Soft Tissue MRSA/MSSA (PCR - Final Mrsa Negative S.aureus Negative Assess/Plan/Problems-Billing Assessment: Mr El is a 73M with DM2, ESRD on HD, CAD, 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 Also with osteo of 5th metatarsal, now s/p L foot I&D and excision of 5th metatarsal base on 01/06. PCR in OR positive for Staph aureus without growth. S/ p debridement of L lateral mid-foot with ostectomy, partial cuboid resection, I& D and vac (01/11). - Patient Problems (1) Subacute osteomyelitis, left ankle and foot Comment: Ortho input appreciated - plan to return to OR 01/20 for repeat I&D and trial of wound Vac. - Culture grew MSSA - continue Cefazolin per ID - pain control for dressing changes and procedures (2) ESRD (end stage renal disease) Comment: - Continue MWF dialysis. (3) Ascites Comment: Seen on ultrasound. s/p 8L paracentesis 01/08, with SAAG 0.4, PMNs only 128. Fluid culture is negative. 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 - f/u HCV Ab (4) HTN (hypertension) Comment: - BP controlled. - Continue metoprolol with hold parameters. (5) Type 2 diabetes mellitus Comment: A1c 6.4%. - Continue lispro sliding scale. (6) DVT prophylaxis Comment: - SQ heparin (7) Full code status Current Visit: Yes Status: Acute Priority: High Code(s): Z78.9 - OTHER SPECIFIED HEALTH STATUS SNOMED Code(s): 624062236 Comment: Status and Disposition: Inpatient.
[2019-01-19 06:55] LABS: BUN/Creatinine Ratio 7.6 (8-20); EGFR African American 10.7 (>60); EGFR Non-African American 8.9 (>60)
[2019-01-19 07:00] LABS: Potassium 5.1 mmol/L (3.5-5.0)
[2019-01-19] MEDS: Insulin LISPRO* 1 UNITS UNIT SUBCUT SCH ×3 (08:32→17:19)
[2019-01-19] MEDS: Aspirin 81 mg CHEW TAB* 81 MG TAB.CHEW PO SCH (08:46)
[2019-01-19] MEDS: Metoprolol Succinate XL TAB* 25 MG PO SCH (08:46)
[2019-01-19] MEDS: Sevelamer TAB* 800 MG PO SCH ×3 (08:46→17:34)
[2019-01-19] MEDS: Atorvastatin* 80 MG TAB PO SCH (08:46)
[2019-01-19] MEDS: Gemfibrozil TAB* 600 MG PO SCH ×2 (08:47→20:31)
[2019-01-19] MEDS: Heparin VIAL(*) 5000 UNITS/ML VIAL (FIVE THOUSAND) SUBCUT SCH ×2 (08:47→20:31)
[2019-01-19] MEDS: Pantoprazole TAB * 40 MG TAB PO SCH (08:47)
[2019-01-19] MEDS: PRILOCAINE TOPICAL SCH (09:43)
[2019-01-19] MEDS: LIDOCAINE TOPICAL SCH (09:43)
[2019-01-19] MEDS: Morphine INJ* 2 MG/ML 1 ML SYRINGE (TWO MG - NEW SYRINGE VERSION) IV PRN ×2 (10:19→16:40)
[2019-01-19] MEDS ORDERED: EPOETIN ALFA-EPBX * 3,000 UNIT/ML VIAL IV ONE (12:00)
[2019-01-19] MEDS ORDERED: Heparin DIALYSIS ONLY(*) 1,000 UNITS/ML VIAL DIALYSIS ONE (12:00)
[2019-01-19] MEDS ORDERED: EPOETIN ALFA-EPBX * 2,000 UNIT/ML VIAL IV ONE (12:00)
[2019-01-19 13:09] LABS: Hepatitis C Antibody Negative (Negative)
[2019-01-19] MEDS: ceFAZolin 1 GM ADVAN(*) 1 GM in NS 0.9% 50 ML* 50 ML IVPB SCH (14:45)
--- NOTE | 2019-01-19 17:00 | PN ---
Progress Note - Progress Note Date of Service: 01/19/19 SOAP: Subjective: []Pt seen at bedside. He had dialysis earlier today, left foot pain controlled at rest though dressing changes are painful. Denies fever or chills. Objective: [] Gen: NAD, alert and oriented x 3 LLE: Betadine wet to dry dressing changed. Wound measures 6.5 x 3x 3 cm . Wound bed continues to ooze blood, no purulence. + mildly tender lateral foot, no erythema. NVI distally. Calves supple and nontender Assessment: POD #6 Left foot I&D Plan: []Betadine wet to dry dressing changed. Plan for OR for washout and vac placement. Hold heparin at midnight, NPO after midnight Cont IV abx - cefazolin Vital Signs Temp 98.2 F 01/19/19 15:16 Pulse 64 01/19/19 15:16 Resp 18 01/19/19 16:40 BP 110/58 01/19/19 15:16 Pulse Ox 99 01/19/19 15:16 Intake & Output 01/18/19 01/19/19 01/19/19 18:59 06:59 18:59 Intake Total 420 600 240 Output Total 360 300 90 Balance 60 300 150 Weight 205 lb Intake: IVPB 60 ABX - CEFAZOLIN 60 Oral 360 600 240 Output: Urine 360 300 90 Other: Estimated Void Medium Date of Last Bowel unknown Movement # Bowel Movements 0 0 # Voids 1 1 Laboratory Last Values WBC 5.7 10^3/uL (3.5-10.8) 01/18/19 06:45 RBC 2.95 10^6 /uL (4.18-5.48) L 01/18/19 06:45 Hgb 9.1 g/dL (14.0-18.0) L 01/18/19 06:45 Hct 27 % (42-52) L 01/18/19 06:45 MCV 92 fL (80-94) 01/18/19 06:45 MCH 31 pg (27-31) 01/18/19 06:45 MCHC 34 g/dL (31-36) 01/18/19 06:45 RDW 14 % (10-15) 01/18/19 06:45 Plt Count 201 10^3/uL (150-450) 01/18/19 06:45 MPV 7.3 fL (7.4-10.4) L 01/18/19 06:45 Neut % (Auto) 68.2 % 01/18/19 06:45 Lymph % (Auto) 15.7 % 01/18/19 06:45 [place] % (Auto) 10.8 % 01/18/19 06:45 Eos % (Auto) 3.9 % 01/18/19 06:45 Baso % (Auto) 1.4 % 01/18/19 06:45 Absolute Neuts (auto) 3.9 10^3/ul (1.5-7.7) 01/18/19 06:45 Absolute Lymphs (auto) 0.9 10^3/ul (1.0-4.8) L 01/18/19 06:45 Absolute Monos (auto) 0.6 10^3/ul (0-0.8) 01/18/19 06:45 Absolute Eos (auto) 0.2 10^3/ul (0-0.6) 01/18/19 06:45 Absolute Basos (auto) 0.1 10^3/ul (0-0.2) 01/18/19 06:45 Absolute Nucleated RBC 0.0 10^3/ul 01/18/19 06:45 Nucleated RBC % 0.0 01/18/19 06:45 INR (Anticoag Therapy) 1.27 (0.82-1.09) H 01/06/19 06:14 Sodium 135 mmol/L (135-145) 01/19/19 06:12 Potassium 5.1 mmol/L (3.5-5.0) H 01/19/19 06:12 Chloride 98 mmol/L (101-111) L 01/19/19 06:12 Carbon Dioxide 28 mmol/L (22-32) 01/19/19 06:12 Anion Gap 9 mmol/L (2-11) 01/19/19 06:12 BUN 47 mg/dL (6-24) H 01/19/19 06:12 Creatinine 6.21 mg/dL (0.67-1.17) H 01/19/19 06:12 1/Creatinine 0.17 01/03/19 08:24 Est GFR ( Amer) 10.7 (>60) 01/19/19 06:12 Est GFR (Non-Af Amer) 8.9 (>60) 01/19/19 06:12 BUN/Creatinine Ratio 7.6 (8-20) L 01/19/19 06:12 Glucose 140 mg/dL (70-100) H 01/19/19 06:12 POC Glucose (mg/dL) 152 mg/dL (70-100) H 01/19/19 11:50 Hemoglobin A1c 6.4 % (4.0-5.6) H 01/18/19 06:45 Lactic Acid 2.2 mmol/L (0.5-2.0) H* 12/29/18 14:16 Calcium 8.0 mg/dL (8.6-10.3) L 01/19/19 06:12 Phosphorus 3.7 mg/dL (2.5-5.0) 01/13/19 06:31 Magnesium 2.0 mg/dL (1.9-2.7) 01/19/19 06:12 Total Bilirubin 0.40 mg/dL (0.2-1.0) 01/18/19 06:45 Direct Bilirubin 0.20 mg/dL (0.03-0.18) H 01/08/19 06:31 Indirect Bilirubin 0.4 mg/dL (0.3-1.0) 01/08/19 06:31 AST 18 U/L (13-39) 01/18/19 06:45 ALT < 3 U/L (7-52) L 01/18/19 06:45 Alkaline Phosphatase 99 U/L (34-104) 01/18/19 06:45 C-Reactive Protein 152.01 mg/L (<8.01) H 01/17/19 06:15 Total Protein 5.8 g/dL (6.4-8.9) L 01/18/19 06:45 Albumin 2.4 g/dL (3.2-5.2) L 01/18/19 06:45 Globulin 3.4 g/dL (2-4) 01/18/19 06:45 Albumin/Globulin Ratio 0.7 (1-3) L 01/18/19 06:45 Fluid Source Peritoneal 01/08/19 16:28 Fluid Volume 50.0 mL 01/08/19 16:28 Fluid Color Yellow 01/08/19 16:28 Fluid Appearance Clear 01/08/19 16:28 Fluid WBC 358 /mcL ([id number]) 01/08/19 16:28 Fluid RBC 313 /mcL 01/08/19 16:28 Fluid Tot Cell Count 100 01/08/19 16:28 Fluid Neutrophils 36 % 01/08/19 16:28 Fluid Band Neutrophils 1 % 01/08/19 16:28 Fluid Lymphocytes 4 % 01/08/19 16:28 Fluid Monocytes 58 % 01/08/19 16:28 Fluid Eosinophils 1 % 01/08/19 16:28 Fluid Other Cells 2 01/08/19 16:28 Fluid Cell Count Rvw By 01/08/19 16:28 Fluid Total Protein 4.1 g/dL 01/08/19 16:28 Fluid Comment 01/08/19 16:28 Random Vancomycin 6.3 mcg/mL 12/31/18 11:00 Hepatitis B Antibody Not immune (Immune) A 12/31/18 11:00 Hep Bs Antigen Negative (Negative) 12/31/18 11:00 Hepatitis C Antibody Negative (Negative) 01/19/19 06:11 Hepatitis C Ab Index 0.03 s/c 01/19/19 06:11 Miscellaneous Test See comments 01/08/19 16:28
--- NOTE | 2019-01-19 17:11 | PN ---
Subjective Date of Service: 01/19/19 Interval History: At HD today. Tolerated well. Denies pain, SOB, light headedness, abd pain, n/v/c /d. Objective Active Medications: Acetaminophen (Tylenol Tab*) 650 mg PO Q4H PRN PRN Reason: FEVER/PAIN Last Admin: 01/10/19 07:31 Dose: 650 mg Hydrocodone Bitart/Acetaminophen ([place] 5-325 Tab*) 2 tab PO Q4H PRN PRN Reason: PAIN Last Admin: 01/18/19 13:42 Dose: 2 tab Aspirin (Aspirin 81 Mg Chew Tab*) 81 mg PO DAILY [facility] Last Admin: 01/19/19 08:46 Dose: 81 mg Atorvastatin Calcium (Lipitor*) 80 mg PO QAM [facility] Last Admin: 01/19/19 08:46 Dose: 80 mg Calcium Carbonate (Tums*) 500 mg PO Q4H PRN PRN Reason: INDIGESTION Last Admin: 12/30/18 14:18 Dose: 500 mg Dextrose (D50w Syringe 50 Ml*) 12.5 gm IV PUSH .FOR FS < 60 - SS PRN PRN Reason: FS < 60 Gemfibrozil (Lopid Tab*) 600 mg PO BID [facility] Last Admin: 01/19/19 08:47 Dose: 600 mg Heparin Sodium (Porcine) (Heparin Vial(*)) 5,000 units SUBCUT Q12HR [facility] Last Admin: 01/19/19 08:47 Dose: 5,000 units Cefazolin Sodium 1 gm/ Sodium (Chloride) 50 mls @ 200 mls/hr IVPB Q24H [facility] Last Admin: 01/19/19 14:45 Dose: 200 mls/hr Lactated Ringer's (Lactated Ringers 1000 Ml Bag*) 1,000 mls @ 125 mls/hr IV PER RATE [facility] Insulin Human Lispro (Humalog*) 0 units SUBCUT AC [facility]; Protocol Last Admin: 01/19/19 13:46 Dose: Not Given Lidocaine/Prilocaine (Emla*) 1 applic TOPICAL MoWeFr [facility] Last Admin: 01/19/19 09:43 Dose: 1 applic Lidocaine/Sodium Bicarbonate (Buffered Lidocaine 1% Syrin*) 0.2 ml INTRADERM ONCE ONE Stop: 01/20/19 06:01 Magnesium Hydroxide (Milk Of Magnesia Liq*) 30 ml PO BID PRN PRN Reason: CONSTIPATION Melatonin (Melatonin) 3 mg PO BEDTIME PRN PRN Reason: SLEEP Last Admin: 01/16/19 21:49 Dose: 3 mg Metoprolol Succinate (Toprol Xl Tab*) 25 mg PO QAM [facility] Last Admin: 01/19/19 08:46 Dose: 25 mg Morphine Sulfate (Morphine Inj (Syringe))*) 2 mg IV Q6H PRN PRN Reason: PAIN Last Admin: 01/19/19 16:40 Dose: 2 mg Ondansetron HCl (Zofran Odt Tab*) 4 mg SL Q6H PRN PRN Reason: NAUSEA/VOMITING Last Admin: 01/17/19 17:44 Dose: 4 mg Pantoprazole Sodium (Protonix Tab*) 40 mg PO DAILY [facility] Last Admin: 01/19/19 08:47 Dose: 40 mg Polyethylene Glycol/Electrolytes (Miralax*) 17 gm PO DAILY PRN PRN Reason: CONSTIPATION Senna (Senokot Tab*) 1 tab PO BEDTIME PRN PRN Reason: CONSTIPATION Last Admin: 01/17/19 09:25 Dose: 1 tab Sevelamer Carbonate (Renvela Tab*) 1,600 mg PO 0845,1245,1745 [facility] Last Admin: 01/19/19 14:08 Dose: Not Given Vital Signs - 8 hr 01/19/19 01/19/19 01/19/19 10:19 11:35 12:00 Temperature 97.8 F Pulse Rate 66 Respiratory 18 16 18 Rate Blood Pressure 119/72 (mmHg) O2 Sat by Pulse 97 Oximetry 01/19/19 01/19/19 15:16 16:40 Temperature 98.2 F Pulse Rate 64 Respiratory 16 18 Rate Blood Pressure 110/58 (mmHg) O2 Sat by Pulse 99 Oximetry Oxygen Devices in Use Now: None Appearance: well appearing, NAD; alert and interactive Eyes: No Scleral Icterus Ears/Nose/Mouth/Throat: Clear Oropharnyx, Mucous Membranes Moist Neck: Trachea Midline Respiratory: - - clear anteriorly Cardiovascular: RRR Abdominal: - - +fluid wave, no tenderness or hepatomegaly Neurological: Alert and Oriented x 3 Result Diagrams: 01/18/19 06:45 01/19/19 06:12 Microbiology and Other Data: Microbiology 01/06/19 12:01 Foot Left Skin and Soft Tissue MRSA/MSSA (PCR - Final Mrsa Negative S.aureus Positive 01/06/19 12:01 Foot Left Gram Stain - Final 01/06/19 12:01 Foot Left Wound Culture - Preliminary No Growth Day 3 01/08/19 16:28 Body Fluid Gram Stain - Final 01/03/19 10:13 Foot Left Gram Stain - Final 01/03/19 10:13 Foot Left Wound Culture - Final Staphylococcus Aureus 12/29/18 14:15 Blood Venous Aerobic Blood Culture - Final No Growth Day 5 12/29/18 14:15 Blood Venous Anaerobic Blood Culture - Final No Growth Day 5 12/29/18 16:00 Foot Left Gram Stain - Final 12/29/18 16:00 Foot Left Wound Culture - Final Staphylococcus Aureus Normal Nadja 12/29/18 16:00 Foot Left Skin and Soft Tissue MRSA/MSSA (PCR - Final Mrsa Negative S.aureus Negative Diagnostic Imagin02/11/18 - VL ANK/BRACHIAL INDICES: Ankle-brachial indices: Right: Value (SBP) Index Brachial: 164 Posterior tibialis: Noncompressible Dorsalis pedis: Noncompressible Digit: 56 0.33 Left: Value (SBP) Index Brachial: 172 Posterior tibialis: Noncompressible Dorsalis pedis: Noncompressible Digit: 47 0.27 Doppler waveforms (acquired at rest): In the interrogated lower extremity arteries, Doppler waveforms are monophasic and the bilateral lower extremities with notably reduced amplitude at the right posterior tibial artery. 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 Also with osteo of 5th metatarsal, now s/p L foot I&D and excision of 5th metatarsal base on 01/06. PCR in OR positive for Staph aureus without growth. S/ p debridement of L lateral mid-foot with ostectomy, partial cuboid resection, I& D and vac (01/11). - Patient Problems (1) Subacute osteomyelitis, left ankle and foot Comment: Ortho input appreciated - plan to return to OR 01/20 for repeat I&D and trial of wound Vac. - Culture grew MSSA - continue Cefazolin per ID - pain control for dressing changes and procedures (2) ESRD (end stage renal disease) Comment: - Continue MWF dialysis. (3) Ascites Comment: Seen on ultrasound. s/p 8L paracentesis 01/08, with SAAG 0.4, PMNs only 128. Fluid culture is negative. 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 Hep B and C negative. - consider GI consult; if with cirrhosis, should be on furosemide/ spironolactone and low salt diet (4) HTN (hypertension) Comment: - BP controlled. - Continue metoprolol with hold parameters. (5) Type 2 diabetes mellitus Comment: A1c 6.4%. - Continue lispro sliding scale. (6) DVT prophylaxis Comment: - SQ heparin (7) Full code status Current Visit: Yes Status: Acute Priority: High Code(s): Z78.9 - OTHER SPECIFIED HEALTH STATUS SNOMED Code(s): 466615963 Comment: Status and Disposition: Inpatient.
--- NOTE | 2019-01-19 23:07 | PN ---
DIALYSIS NOTE: DATE OF VISIT/DIALYSIS: 01/19/19 SUBJECTIVE: The patient was seen and examined. During dialysis, the patient tolerating his procedure well. His usual dialysis prescription is being followed. Increased UF was attempted to 2.5 L, however, the patient's blood pressure dropped to the 80s and we will plan on his usual filtration rate of 2 L and keep him at his current dry weight. Vitals and labs have been reviewed. PHYSICAL EXAMINATION: HEENT: NCAT. Heart: S1, S2 present. Regular at the time of exam. Lungs decreased breath sounds bilaterally. Abdomen: Soft. Noted to some have ascites. Neuro: Alert and oriented. Extremities: Noted to have dressing in place. ASSESSMENT AND PLAN: Hemodialysis orders discussed with the nurse and the patient tolerating the procedure well. [id number]/[facility] #: [id number] MTDD
[2019-01-20] MEDS: HYDROcodone/ACETAMIN 5-325 MG* 1 TAB PO PRN ×3 (00:40→22:22)
[2019-01-20] MEDS ORDERED: Buffered Lidocaine 1% SYRIN* 1 ML/SYRINGE INTRADERM ONE ×2 (06:00→10:05)
[2019-01-20] MEDS ORDERED: Lactated Ringers 1000 ML Bag* 1,000 ML IV SCH (06:00)
[2019-01-20 06:48] LABS: INR 3.41 (0.82-1.09)
[2019-01-20 06:53] LABS: ABS Basophils 0.1 10^3/ul (0-0.2); ABS Eosinophils 0.2 10^3/ul (0-0.6); ABS Lymphocytes 0.9 10^3/ul (1.0-4.8); ABS Monocytes 0.6 10^3/ul (0-0.8); ABS Neutrophils 3.7 10^3/ul (1.5-7.7); Eosinophil % 3.5 %; Hematocrit 28 % (42-52); Hemoglobin 9.1 g/dL (14.0-18.0); Mean Corpuscular HGB Conc 33 g/dL (31-36); Mean Corpuscular Hemoglobin 30 pg (27-31); Mean Corpuscular Volume 92 fL (80-94); Mean Platelet Volume 7.4 fL (7.4-10.4); Platelet Count 232 10^3/uL (150-450); Red Blood Count 3.01 10^6 /uL (4.18-5.48); Red Cell Distribution Width 15 % (10-15); White Blood Count 5.5 10^3/uL (3.5-10.8)
[2019-01-20 06:54] LABS: BUN/Creatinine Ratio 6.5 (8-20); Calcium 8.1 mg/dL (8.6-10.3); EGFR African American 13.6 (>60); EGFR Non-African American 11.3 (>60); Potassium 4.5 mmol/L (3.5-5.0)
[2019-01-20] MEDS: Insulin LISPRO* 1 UNITS UNIT SUBCUT SCH ×3 (07:31→16:51)
[2019-01-20] MEDS: Aspirin 81 mg CHEW TAB* 81 MG TAB.CHEW PO SCH (09:21)
[2019-01-20] MEDS: Pantoprazole TAB * 40 MG TAB PO SCH (09:21)
[2019-01-20] MEDS: Metoprolol Succinate XL TAB* 25 MG PO SCH (09:21)
[2019-01-20] MEDS: Atorvastatin* 80 MG TAB PO SCH (09:21)
[2019-01-20] MEDS: Sevelamer TAB* 800 MG PO SCH ×3 (09:36→17:51)
[2019-01-20] MEDS: Gemfibrozil TAB* 600 MG PO SCH ×2 (09:39→20:42)
[2019-01-20] MEDS: Heparin VIAL(*) 5000 UNITS/ML VIAL (FIVE THOUSAND) SUBCUT SCH ×2 (10:11→20:42)
[2019-01-20] MEDS ORDERED: Lidocaine 2% PF * 5 ML VIAL ONE (10:32)
[2019-01-20] MEDS ORDERED: fentaNYL* 50 MCG/ML 2 ML VIAL (100 MCG VIAL) ONE (10:32)
[2019-01-20] MEDS ORDERED: Propofol* 10 MG/ML 20 ML BTL ONE (10:32)
[2019-01-20] MEDS ORDERED: Dexamethasone IV* 4 MG/ML 1 ML (4 MG) ONE (10:35)
[2019-01-20] MEDS ORDERED: Ondansetron INJ* 2 MG/ML VIAL ONE (10:35)
[2019-01-20] MEDS ORDERED: Midazolam* 1 MG/ML 2 ML VIAL (2 MG) ONE (11:30)
[2019-01-20] MEDS ORDERED: Ondansetron INJ* 2 MG/ML VIAL IV PRN (11:52)
[2019-01-20] MEDS ORDERED: Naloxone* 0.4 MG/ML 1 ML VIAL IV PRN (11:52)
[2019-01-20] MEDS ORDERED: fentaNYL* 50 MCG/ML 2 ML VIAL (100 MCG VIAL) IV PRN (11:52)
--- NOTE | 2019-01-20 12:32 | OP ---
Operative Report - Blank - Operative Report Date of Operation: 01/20/19 Note: PATIENT: Rickie El DATE OF : 1945 DATE OF SURGERY: 01/20/2019 SURGEON: Jesu Fraire MD LUMBER SORTER: LEÓN Oliveros, whos assistance was necessary for positioning, retraction, help with instrumentation, and closure. ANESTHESIOLOGIST: Dr. Ruiz PREOPERATIVE DIAGNOSIS: Left foot wound and infection POSTOPERATIVE DIAGNOSIS: Left foot wound and infection OPERATION: Left foot irrigation and debridement, and placement of a wound VAC ANESTHESIA: MAC IMPLANTS: None TOURNIQUET TIME: None SPECIMENS: none ESTIMATED BLOOD LOSS: minimal COMPLICATIONS: none STATUS: Stable from the operating room to the recovery room and then back to the hospital floor. INDICATIONS FOR PROCEDURE: Rickie has had a prior forefoot amputation. He now has a lateral midfoot infection s/p 2 I&Ds. His last wound VAC clotted off and he continues to drain from the wound. Both operative and non-operative treatment alternatives were reviewed. Further, the nature and risks of surgery were reviewed in careful detail. Our discussions regarding the risks of surgery included, but were not limited to, persistent or worsening infection, wound not healing, persistent symptoms, blood clot, need for further surgery, failure of the surgery, need for further amputation. DESCRIPTION OF PROCEDURE: The patient was seen in the preoperative holding unit and informed written consent was obtained. The appropriate extremity was marked. The patient was then brought to the operating room and carefully positioned on the operating room table. Anesthesia was induced. All bony prominences were padded with great care. A chlorhexidine based pre-scrub was performed followed by a betadine prep and drape in standard sterile fashion. A surgical safety pause was then conducted in which we confirmed the appropriate patient, extremity, planned procedure, availability of equipment, indication and administration of antibiotics, and DVT prophylaxis in the form of a compression boot on the non- surgical extremity. I began by excising any necrotic and infected-appearing tissue. This included the skin, subcutaneous tissue, and periosteum, down to the bone layer. There was a fair amount of necrotic tissue in the wound bed. This was excised sharply with a scalpel back to bleeding tissue. No claudia purulence encountered. The wound measured 8 cm in length, 6 cm in width, and 1 cm in depth. I then copiously irrigated the wound with sterile saline. Meticulous hemostasis was obtained with electrocautery. A wound VAC sponge was then fitted to the wound and place. It held good suction , with no leak. The patient was then awakened from anesthesia and transferred to the recovery room in stable condition. There were no complications. All needle and sponge counts were correct at the end of the case. ATTESTATION: I attest I was present and scrubbed and performed the critical portions of the procedure myself. POSTOPERATIVE PLAN: We will plan on a repeat wound VAC change on Thursday.
[2019-01-20] MEDS: Morphine INJ* 2 MG/ML 1 ML SYRINGE (TWO MG - NEW SYRINGE VERSION) IV PRN (13:01)
[2019-01-20] MEDS: ceFAZolin 1 GM ADVAN(*) 1 GM in NS 0.9% 50 ML* 50 ML IVPB SCH (14:49)
[2019-01-20] MEDS: NS 0.45% 1000 ML BAG* 1,000 ML IV SCH (16:49)
--- NOTE | 2019-01-20 18:03 | PN ---
Subjective Date of Service: 01/20/19 Interval History: No overnight events. Today underwent L foot irrigation and debridement with placement of wound VAC. While foot is usually oozing blood, Ortho team noted that since holding heparin for DVT ppx prior to procedure, foot has stopped oozing. Objective Active Medications: Acetaminophen (Tylenol Tab*) 650 mg PO Q4H PRN PRN Reason: FEVER/PAIN Last Admin: 01/10/19 07:31 Dose: 650 mg Hydrocodone Bitart/Acetaminophen ([place] 5-325 Tab*) 2 tab PO Q4H PRN PRN Reason: PAIN Last Admin: 01/20/19 13:01 Dose: 2 tab Aspirin (Aspirin 81 Mg Chew Tab*) 81 mg PO DAILY COUNTS INCLUDE 234 BEDS AT THE [facility] Last Admin: 01/20/19 09:21 Dose: 81 mg Atorvastatin Calcium (Lipitor*) 80 mg PO QAM COUNTS INCLUDE 234 BEDS AT THE [facility] Last Admin: 01/20/19 09:21 Dose: 80 mg Calcium Carbonate (Tums*) 500 mg PO Q4H PRN PRN Reason: INDIGESTION Last Admin: 12/30/18 14:18 Dose: 500 mg Dextrose (D50w Syringe 50 Ml*) 12.5 gm IV PUSH .FOR FS < 60 - SS PRN PRN Reason: FS < 60 Gemfibrozil (Lopid Tab*) 600 mg PO BID COUNTS INCLUDE 234 BEDS AT THE [facility] Last Admin: 01/20/19 09:39 Dose: 600 mg Heparin Sodium (Porcine) (Heparin Vial(*)) 5,000 units SUBCUT Q12HR COUNTS INCLUDE 234 BEDS AT THE [facility] Last Admin: 01/20/19 10:11 Dose: Not Given Cefazolin Sodium 1 gm/ Sodium (Chloride) 50 mls @ 200 mls/hr IVPB Q24H COUNTS INCLUDE 234 BEDS AT THE [facility] Last Admin: 01/20/19 14:49 Dose: 200 mls/hr Sodium Chloride (Ns 0.45% 1000 Ml Bag*) 1,000 mls @ 100 mls/hr IV PER RATE COUNTS INCLUDE 234 BEDS AT THE [facility] Last Admin: 01/20/19 16:49 Dose: 100 mls/hr Insulin Human Lispro (Humalog*) 0 units SUBCUT AC COUNTS INCLUDE 234 BEDS AT THE [facility]; Protocol Last Admin: 01/20/19 16:51 Dose: Not Given Lidocaine/Prilocaine (Emla*) 1 applic TOPICAL MoWeFr COUNTS INCLUDE 234 BEDS AT THE [facility] Last Admin: 01/19/19 09:43 Dose: 1 applic Magnesium Hydroxide (Milk Of Magnesia Liq*) 30 ml PO BID PRN PRN Reason: CONSTIPATION Melatonin (Melatonin) 3 mg PO BEDTIME PRN PRN Reason: SLEEP Last Admin: 01/16/19 21:49 Dose: 3 mg Metoprolol Succinate (Toprol Xl Tab*) 25 mg PO QAM COUNTS INCLUDE 234 BEDS AT THE [facility] Last Admin: 01/20/19 09:21 Dose: 25 mg Morphine Sulfate (Morphine Inj (Syringe))*) 2 mg IV Q6H PRN PRN Reason: PAIN Last Admin: 01/20/19 13:01 Dose: 2 mg Ondansetron HCl (Zofran Odt Tab*) 4 mg SL Q6H PRN PRN Reason: NAUSEA/VOMITING Last Admin: 01/17/19 17:44 Dose: 4 mg Pantoprazole Sodium (Protonix Tab*) 40 mg PO DAILY COUNTS INCLUDE 234 BEDS AT THE [facility] Last Admin: 01/20/19 09:21 Dose: 40 mg Polyethylene Glycol/Electrolytes (Miralax*) 17 gm PO DAILY PRN PRN Reason: CONSTIPATION Senna (Senokot Tab*) 1 tab PO BEDTIME PRN PRN Reason: CONSTIPATION Last Admin: 01/17/19 09:25 Dose: 1 tab Sevelamer Carbonate (Renvela Tab*) 1,600 mg PO 0845,1245,1745 COUNTS INCLUDE 234 BEDS AT THE [facility] Last Admin: 01/20/19 17:51 Dose: 1,600 mg Vital Signs - 8 hr 01/20/19 01/20/19 01/20/19 10:16 12:07 12:30 Temperature 97.8 F Pulse Rate 57 59 61 Respiratory 20 16 16 Rate Blood Pressure 107/40 102/47 110/52 (mmHg) O2 Sat by Pulse 98 98 99 Oximetry 01/20/19 01/20/19 01/20/19 13:01 14:50 15:41 Temperature Pulse Rate Respiratory 22 18 18 Rate Blood Pressure (mmHg) O2 Sat by Pulse Oximetry 01/20/19 16:00 Temperature Pulse Rate Respiratory Rate Blood Pressure (mmHg) O2 Sat by Pulse 99 Oximetry Oxygen Devices in Use Now: None Appearance: well appearing, NAD Ears/Nose/Mouth/Throat: Clear Oropharnyx, Mucous Membranes Moist Neck: NL Appearance and Movements; NL JVP, Trachea Midline Respiratory: - - clear anteriorly Cardiovascular: RRR Abdominal: NL Sounds; No Tenderness; No Distention, No Hepatosplenomegaly Neurological: Alert and Oriented x 3 Result Diagrams: 01/20/19 06:26 01/20/19 06:26 Assess/Plan/Problems-Billing Assessment: Mr El is a 73M with DM2, ESRD on HD, CAD, 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 Also with osteo of 5th metatarsal, now s/p L foot I&D and excision of 5th metatarsal base on 01/06. PCR in OR positive for Staph aureus without growth. S/ p debridement of L lateral mid-foot with ostectomy, partial cuboid resection, I& D and vac (01/11 + 01/20). - Patient Problems (1) Subacute osteomyelitis, left ankle and foot Comment: - Ortho input appreciated - plan for Wound VAC change 01/24 - Culture grew MSSA - continue Cefazolin per ID - pain control for dressing changes and procedures (2) ESRD (end stage renal disease) Comment: - Continue MWF dialysis. (3) Ascites Comment: Seen on ultrasound, now s/p 8L paracentesis 01/08, with SAAG 0.4, PMNs only 128. Fluid culture is negative. 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 Hep B and C negative. - renal to discuss possibility of taking off more fluid during HD, although patient frequently hypotensive during HD - will order autoimmune panel, although less likely cirrhosis given normal platelets, low SAAG (4) HTN (hypertension) Comment: - BP controlled. - Continue metoprolol with hold parameters. (5) Type 2 diabetes mellitus Comment: A1c 6.4%. - Continue lispro sliding scale. (6) DVT prophylaxis Comment: Holding subq heparin given persistent bleeding from foot when on medical DVT ppx - ongoing risk of oozing causing wound vac to fail outweighs risk of DVT at this time, as continued bleeding will prolong hospitalization. Will initiate SCDs. (7) Full code status Current Visit: Yes Status: Acute Priority: High Code(s): Z78.9 - OTHER SPECIFIED HEALTH STATUS SNOMED Code(s): 002486196 Comment: Status and Disposition: Inpatient.
[2019-01-21] MEDS: Atorvastatin* 80 MG TAB PO SCH (07:55)
[2019-01-21] MEDS: Metoprolol Succinate XL TAB* 25 MG PO SCH (07:55)
[2019-01-21] MEDS: Pantoprazole TAB * 40 MG TAB PO SCH (07:55)
[2019-01-21] MEDS: Gemfibrozil TAB* 600 MG PO SCH ×2 (07:55→20:18)
[2019-01-21] MEDS: Aspirin 81 mg CHEW TAB* 81 MG TAB.CHEW PO SCH (07:55)
[2019-01-21] MEDS: Heparin VIAL(*) 5000 UNITS/ML VIAL (FIVE THOUSAND) SUBCUT SCH (07:55)
[2019-01-21] MEDS: Sevelamer TAB* 800 MG PO SCH ×3 (07:55→16:34)
[2019-01-21] MEDS: LIDOCAINE TOPICAL SCH (07:56)
[2019-01-21] MEDS: PRILOCAINE TOPICAL SCH (07:56)
[2019-01-21] MEDS: Morphine INJ* 2 MG/ML 1 ML SYRINGE (TWO MG - NEW SYRINGE VERSION) IV PRN ×2 (08:09→16:33)
[2019-01-21] MEDS: Insulin LISPRO* 1 UNITS UNIT SUBCUT SCH ×3 (08:13→17:28)
--- NOTE | 2019-01-21 08:36 | PN ---
Subjective Date of Service: 01/21/19 Interval History: No overnight events. Denies new symptoms. In OR yesterday. Plan for repeat wound VAC exchange on Thursday. 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 Objective Active Medications: Acetaminophen (Tylenol Tab*) 650 mg PO Q4H PRN PRN Reason: FEVER/PAIN Last Admin: 01/10/19 07:31 Dose: 650 mg Hydrocodone Bitart/Acetaminophen ([place] 5-325 Tab*) 2 tab PO Q4H PRN PRN Reason: PAIN Last Admin: 01/20/19 22:22 Dose: 2 tab Aspirin (Aspirin 81 Mg Chew Tab*) 81 mg PO DAILY [facility] Last Admin: 01/21/19 07:55 Dose: 81 mg Atorvastatin Calcium (Lipitor*) 80 mg PO QAM [facility] Last Admin: 01/21/19 07:55 Dose: 80 mg Calcium Carbonate (Tums*) 500 mg PO Q4H PRN PRN Reason: INDIGESTION Last Admin: 12/30/18 14:18 Dose: 500 mg Dextrose (D50w Syringe 50 Ml*) 12.5 gm IV PUSH .FOR FS < 60 - SS PRN PRN Reason: FS < 60 Gemfibrozil (Lopid Tab*) 600 mg PO BID [facility] Last Admin: 01/21/19 07:55 Dose: 600 mg Heparin Sodium (Porcine) (Heparin Vial(*)) 5,000 units SUBCUT Q12HR [facility] Last Admin: 01/21/19 07:55 Dose: 5,000 units Cefazolin Sodium 1 gm/ Sodium (Chloride) 50 mls @ 200 mls/hr IVPB Q24H [facility] Last Admin: 01/20/19 14:49 Dose: 200 mls/hr Sodium Chloride (Ns 0.45% 1000 Ml Bag*) 1,000 mls @ 100 mls/hr IV PER RATE [facility] Last Admin: 01/20/19 16:49 Dose: 100 mls/hr Insulin Human Lispro (Humalog*) 0 units SUBCUT AC [facility]; Protocol Last Admin: 01/21/19 08:13 Dose: Not Given Lidocaine/Prilocaine (Emla*) 1 applic TOPICAL MoWeFr [facility] Last Admin: 01/21/19 07:56 Dose: 1 applic Magnesium Hydroxide (Milk Of Magnesia Liq*) 30 ml PO BID PRN PRN Reason: CONSTIPATION Melatonin (Melatonin) 3 mg PO BEDTIME PRN PRN Reason: SLEEP Last Admin: 01/16/19 21:49 Dose: 3 mg Metoprolol Succinate (Toprol Xl Tab*) 25 mg PO QAM [facility] Last Admin: 01/21/19 07:55 Dose: 25 mg Morphine Sulfate (Morphine Inj (Syringe))*) 2 mg IV Q6H PRN PRN Reason: PAIN Last Admin: 01/21/19 08:09 Dose: 2 mg Ondansetron HCl (Zofran Odt Tab*) 4 mg SL Q6H PRN PRN Reason: NAUSEA/VOMITING Last Admin: 01/17/19 17:44 Dose: 4 mg Pantoprazole Sodium (Protonix Tab*) 40 mg PO DAILY [facility] Last Admin: 01/21/19 07:55 Dose: 40 mg Polyethylene Glycol/Electrolytes (Miralax*) 17 gm PO DAILY PRN PRN Reason: CONSTIPATION Senna (Senokot Tab*) 1 tab PO BEDTIME PRN PRN Reason: CONSTIPATION Last Admin: 01/17/19 09:25 Dose: 1 tab Sevelamer Carbonate (Renvela Tab*) 1,600 mg PO 0845,1245,1745 [facility] Last Admin: 01/21/19 07:55 Dose: 1,600 mg Vital Signs - 8 hr 01/21/19 01/21/19 01/21/19 03:00 07:30 08:09 Temperature 97.8 F 98.0 F Pulse Rate 55 60 Respiratory 17 16 18 Rate Blood Pressure 116/49 121/68 (mmHg) O2 Sat by Pulse 98 99 Oximetry 01/21/19 08:21 Temperature Pulse Rate Respiratory 18 Rate Blood Pressure (mmHg) O2 Sat by Pulse 99 Oximetry Oxygen Devices in Use Now: None Appearance: lying flat, NAD Ears/Nose/Mouth/Throat: Clear Oropharnyx, Mucous Membranes Moist Neck: NL Appearance and Movements; NL JVP, Trachea Midline Respiratory: Clear to Auscultation - anteriorly Cardiovascular: NL Sounds; No Murmurs; No JVD, RRR Abdominal: No Hepatosplenomegaly, - - soft and nontender, + fluid wave Extremities: - - L foot with wound vac Result Diagrams: 01/20/19 06:26 01/20/19 06:26 Additional Lab and Data: Laboratory Results - last 24 hr 01/08/19 01/09/19 01/10/19 16:28 17:31 07:16 WBC RBC Hgb Hct MCV MCH MCHC RDW Plt Count MPV Neut % (Auto) Lymph % (Auto) [place] % (Auto) Eos % (Auto) Baso % (Auto) Absolute Neuts (auto) Absolute Lymphs (auto) Absolute Monos (auto) Absolute Eos (auto) Absolute Basos (auto) Absolute Nucleated RBC Nucleated RBC % Sodium Potassium Chloride Carbon Dioxide Anion Gap BUN Creatinine Est GFR ( Amer) Est GFR (Non-Af Amer) BUN/Creatinine Ratio Glucose POC Glucose (mg/dL) 141 H 131 H Calcium Total Bilirubin AST ALT Alkaline Phosphatase C-Reactive Protein Total Protein Albumin Globulin Albumin/Globulin Ratio Fluid Cell Count Rvw By 01/10/19 01/10/19 01/10/19 09:57 09:57 12:27 WBC 6.9 RBC 3.32 L Hgb 10.3 L Hct 31 L MCV 93 MCH 31 MCHC 33 RDW 14 Plt Count 212 MPV 7.1 L Neut % (Auto) 82.2 Lymph % (Auto) 7.6 [place] % (Auto) 7.6 Eos % (Auto) 1.9 Baso % (Auto) 0.7 Absolute Neuts (auto) 5.7 Absolute Lymphs (auto) 0.5 L Absolute Monos (auto) 0.5 Absolute Eos (auto) 0.1 Absolute Basos (auto) 0.0 Absolute Nucleated RBC 0.0 Nucleated RBC % 0.0 Sodium 132 L Potassium 4.2 Chloride 95 L Carbon Dioxide 26 Anion Gap 11 BUN 50 H Creatinine 6.31 H Est GFR ( Amer) 10.5 Est GFR (Non-Af Amer) 8.7 BUN/Creatinine Ratio 7.9 L Glucose 127 H POC Glucose (mg/dL) 127 H Calcium 8.2 L Total Bilirubin 0.50 AST 12 L ALT < 3 L Alkaline Phosphatase 99 C-Reactive Protein 242.28 H Total Protein 5.9 L Albumin 2.7 L Globulin 3.2 Albumin/Globulin Ratio 0.8 L Fluid Cell Count Rvw By 01/10/19 16:19 WBC RBC Hgb Hct MCV MCH MCHC RDW Plt Count MPV Neut % (Auto) Lymph % (Auto) [place] % (Auto) Eos % (Auto) Baso % (Auto) Absolute Neuts (auto) Absolute Lymphs (auto) Absolute Monos (auto) Absolute Eos (auto) Absolute Basos (auto) Absolute Nucleated RBC Nucleated RBC % Sodium Potassium Chloride Carbon Dioxide Anion Gap BUN Creatinine Est GFR ( Amer) Est GFR (Non-Af Amer) BUN/Creatinine Ratio Glucose POC Glucose (mg/dL) 168 H Calcium Total Bilirubin AST ALT Alkaline Phosphatase C-Reactive Protein Total Protein Albumin Globulin Albumin/Globulin Ratio Fluid Cell Count Rvw By Microbiology and Other Data: Microbiology 01/06/19 12:01 Foot Left Skin and Soft Tissue MRSA/MSSA (PCR - Final Mrsa Negative S.aureus Positive 01/06/19 12:01 Foot Left Gram Stain - Final 01/06/19 12:01 Foot Left Wound Culture - Preliminary No Growth Day 3 01/08/19 16:28 Body Fluid Gram Stain - Final 01/03/19 10:13 Foot Left Gram Stain - Final 01/03/19 10:13 Foot Left Wound Culture - Final Staphylococcus Aureus 12/29/18 14:15 Blood Venous Aerobic Blood Culture - Final No Growth Day 5 12/29/18 14:15 Blood Venous Anaerobic Blood Culture - Final No Growth Day 5 12/29/18 16:00 Foot Left Gram Stain - Final 12/29/18 16:00 Foot Left Wound Culture - Final Staphylococcus Aureus Normal Nadja 12/29/18 16:00 Foot Left Skin and Soft Tissue MRSA/MSSA (PCR - Final Mrsa Negative S.aureus Negative Diagnostic Imagin02/11/18 - VL ANK/BRACHIAL INDICES: Ankle-brachial indices: Right: Value (SBP) Index Brachial: 164 Posterior tibialis: Noncompressible Dorsalis pedis: Noncompressible Digit: 56 0.33 Left: Value (SBP) Index Brachial: 172 Posterior tibialis: Noncompressible Dorsalis pedis: Noncompressible Digit: 47 0.27 Doppler waveforms (acquired at rest): In the interrogated lower extremity arteries, Doppler waveforms are monophasic and the bilateral lower extremities with notably reduced amplitude at the right posterior tibial artery. 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 Also with osteo of 5th metatarsal, now s/p L foot I&D and excision of 5th metatarsal base on 01/06. PCR in OR positive for Staph aureus without growth. S/ p debridement of L lateral mid-foot with ostectomy, partial cuboid resection, I& D and vac (01/11 + 01/20). - Patient Problems (1) Subacute osteomyelitis, left ankle and foot Comment: - Ortho input appreciated - plan for Wound VAC change 01/24 - Culture grew MSSA - continue Cefazolin per ID - pain control for dressing changes and procedures (2) ESRD (end stage renal disease) Comment: - Continue MWF dialysis. (3) Ascites Comment: Seen on ultrasound, now s/p 8L paracentesis 01/08, with SAAG 0.4, PMNs only 128. Fluid culture is negative. 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 Hep B and C negative. - renal to discuss possibility of taking off more fluid during HD, although patient frequently hypotensive during HD - will order autoimmune panel, although less likely cirrhosis given normal platelets, low SAAG (4) HTN (hypertension) Comment: - BP controlled. - Continue metoprolol with hold parameters. (5) Type 2 diabetes mellitus Comment: A1c 6.4%. - Continue lispro sliding scale. (6) DVT prophylaxis Comment: Holding subq heparin given persistent bleeding from foot when on medical DVT ppx - ongoing risk of oozing causing wound vac to fail outweighs risk of DVT at this time, as continued bleeding will prolong hospitalization. Will initiate SCDs. (7) Full code status Current Visit: Yes Status: Acute Priority: High Code(s): Z78.9 - OTHER SPECIFIED HEALTH STATUS SNOMED Code(s): 669325386 Comment: Status and Disposition: Inpatient.
[2019-01-21] MEDS: Ondansetron ODT TAB* 4 MG SL PRN (09:49)
--- NOTE | 2019-01-21 10:37 | PN ---
Progress Note - Progress Note Date of Service: 01/21/19 SOAP: Subjective: []Patient seen at bedside in dialysis. He states he is having little pain in the foot currently. Objective: [] Vital Signs Temp 98.0 F 01/21/19 07:30 Pulse 60 01/21/19 07:30 Resp 18 01/21/19 09:43 BP 121/68 01/21/19 07:30 Pulse Ox 99 01/21/19 08:21 Intake & Output 01/20/19 01/21/19 01/21/19 18:59 06:59 18:59 Intake Total 1200 324 Output Total 390 400 Balance 810 -76 Weight 200 lb 1.6 oz Intake: IV Fluids 324 NS (0.9%) 324 Oral 1200 0 Output: Urine 390 400 Other: Estimated Void Medium # Bowel Movements 0 0 # Voids 1 Left foot wound vac running with good suction no significant swelling remainder of the foot, no erythema Assessment: []s/p i&d, wound vac change left foot Plan: []Continue current vac, left foot elevation, heparin held with SCDs for DVt prophylaxis Cefazolin IV repeat wound vac change Thursday
[2019-01-21] MEDS ORDERED: EPOETIN ALFA-EPBX * 2,000 UNIT/ML VIAL IV ONE (11:00)
[2019-01-21] MEDS ORDERED: Heparin DIALYSIS ONLY(*) 1,000 UNITS/ML VIAL DIALYSIS ONE (11:00)
[2019-01-21] MEDS ORDERED: EPOETIN ALFA-EPBX * 3,000 UNIT/ML VIAL IV ONE (11:00)
[2019-01-21] MEDS: NS 0.45% 1000 ML BAG* 1,000 ML IV SCH (14:09)
[2019-01-21] MEDS: ceFAZolin 1 GM ADVAN(*) 1 GM in NS 0.9% 50 ML* 50 ML IVPB SCH (14:09)
[2019-01-21] MEDS: HYDROcodone/ACETAMIN 5-325 MG* 1 TAB PO PRN ×2 (14:58→20:18)
--- NOTE | 2019-01-21 18:54 | PN ---
PROGRESS NOTE/DIALYSIS NOTE: DATE OF DIALYSIS: 01/21/19 SERVICE: [facility] Nephrology. SUBJECTIVE: The patient was seen and examined during dialysis, order discussed with nurse. PHYSICAL EXAM: HEENT: NC/AT. Heart: S1, S2 present. Regular rate and rhythm. Lungs: Decreased b reath sounds bilaterally. Abdomen: Soft. Extremities: Noted to have some edema. Wound VAC in dalia ce. ASSESSMENT AND PLAN: 1. The patient was seen during dialysis and tolerating this procedure well. I will plan for a UF of 2 L as tolerated. 2. Ascites, unclear etiology. Nephrogenic ascites is possible; however, the patient has only been o n dialysis for about 6 months per discussion with the patient, we will review his old records to eval uate his etiology. Contrast nephropathy was also implicated. The patient's noted to be low p er discussion with Dr. Ngo and the patient's fluid during his prior paracentesis also did not show any malignant cells. Recommend resending studies if he ends up meeting a paracentesis the next time . The patient at this time only tolerating about 2 L UF and beyond this, drops his blood pressure to the 80s. Also recommend checking [place] and panel for autoimmune hepatitis. His prior hep B and hep C have been negative. 3. We will follow with the primary medical team. [id number]/[facility] #: [id number]
[2019-01-21] MEDS ORDERED: NS 0.45% 1000 ML BAG* 1,000 ML IV SCH (22:00)
[2019-01-22] MEDS: Insulin LISPRO* 1 UNITS UNIT SUBCUT SCH (07:46)
[2019-01-22] MEDS: Sevelamer TAB* 800 MG PO SCH ×3 (09:06→17:51)
[2019-01-22] MEDS: Atorvastatin* 80 MG TAB PO SCH (09:07)
[2019-01-22] MEDS: Gemfibrozil TAB* 600 MG PO SCH ×2 (09:07→21:19)
[2019-01-22] MEDS: Pantoprazole TAB * 40 MG TAB PO SCH (09:07)
[2019-01-22] MEDS: Aspirin 81 mg CHEW TAB* 81 MG TAB.CHEW PO SCH (09:07)
--- NOTE | 2019-01-22 13:54 | PN ---
Progress Note - Progress Note Date of Service: 01/22/19 SOAP: Subjective: Pt seen at bedside. States had a lot of pain overnight. States pain is well controlled today. Denies CP, SOB, F/C Vital Signs: Temp Pulse Resp BP Pulse Ox 98.0 F 55 22 114/42 100 01/22/19 07:52 01/22/19 07:52 01/22/19 07:52 01/22/19 07:52 01/22/19 07:52 Laboratory Last Values WBC 5.5 10^3/uL (3.5-10.8) 01/20/19 06:26 RBC 3.01 10^6 /uL (4.18-5.48) L 01/20/19 06:26 Hgb 9.1 g/dL (14.0-18.0) L 01/20/19 06:26 Hct 28 % (42-52) L 01/20/19 06:26 MCV 92 fL (80-94) 01/20/19 06:26 MCH 30 pg (27-31) 01/20/19 06:26 MCHC 33 g/dL (31-36) 01/20/19 06:26 RDW 15 % (10-15) 01/20/19 06:26 Plt Count 232 10^3/uL (150-450) 01/20/19 06:26 MPV 7.4 fL (7.4-10.4) 01/20/19 06:26 Neut % (Auto) 66.6 % 01/20/19 06:26 Lymph % (Auto) 17.0 % 01/20/19 06:26 [place] % (Auto) 11.6 % 01/20/19 06:26 Eos % (Auto) 3.5 % 01/20/19 06:26 Baso % (Auto) 1.3 % 01/20/19 06:26 Absolute Neuts (auto) 3.7 10^3/ul (1.5-7.7) 01/20/19 06:26 Absolute Lymphs (auto) 0.9 10^3/ul (1.0-4.8) L 01/20/19 06:26 Absolute Monos (auto) 0.6 10^3/ul (0-0.8) 01/20/19 06:26 Absolute Eos (auto) 0.2 10^3/ul (0-0.6) 01/20/19 06:26 Absolute Basos (auto) 0.1 10^3/ul (0-0.2) 01/20/19 06:26 Absolute Nucleated RBC 0.0 10^3/ul 01/20/19 06:26 Nucleated RBC % 0.0 01/20/19 06:26 INR (Anticoag Therapy) 3.41 (0.82-1.09) H 01/20/19 06:26 Sodium 136 mmol/L (135-145) 01/20/19 06:26 Potassium 4.5 mmol/L (3.5-5.0) 01/20/19 06:26 Chloride 96 mmol/L (101-111) L 01/20/19 06:26 Carbon Dioxide 32 mmol/L (22-32) 01/20/19 06:26 Anion Gap 8 mmol/L (2-11) 01/20/19 06:26 BUN 33 mg/dL (6-24) H 01/20/19 06:26 Creatinine 5.05 mg/dL (0.67-1.17) H 01/20/19 06:26 1/Creatinine 0.17 01/03/19 08:24 Est GFR ( Amer) 13.6 (>60) 01/20/19 06:26 Est GFR (Non-Af Amer) 11.3 (>60) 01/20/19 06:26 BUN/Creatinine Ratio 6.5 (8-20) L 01/20/19 06:26 Glucose 114 mg/dL (70-100) H 01/20/19 06:26 POC Glucose (mg/dL) 142 mg/dL (70-100) H 01/22/19 11:31 Hemoglobin A1c 6.4 % (4.0-5.6) H 01/18/19 06:45 Lactic Acid 2.2 mmol/L (0.5-2.0) H* 12/29/18 14:16 Calcium 8.1 mg/dL (8.6-10.3) L 01/20/19 06:26 Phosphorus 3.7 mg/dL (2.5-5.0) 01/13/19 06:31 Magnesium 2.0 mg/dL (1.9-2.7) 01/19/19 06:12 Total Bilirubin 0.40 mg/dL (0.2-1.0) 01/18/19 06:45 Direct Bilirubin 0.20 mg/dL (0.03-0.18) H 01/08/19 06:31 Indirect Bilirubin 0.4 mg/dL (0.3-1.0) 01/08/19 06:31 AST 18 U/L (13-39) 01/18/19 06:45 ALT < 3 U/L (7-52) L 01/18/19 06:45 Alkaline Phosphatase 99 U/L (34-104) 01/18/19 06:45 C-Reactive Protein 152.01 mg/L (<8.01) H 01/17/19 06:15 Total Protein 5.8 g/dL (6.4-8.9) L 01/18/19 06:45 Albumin 2.4 g/dL (3.2-5.2) L 01/18/19 06:45 Globulin 3.4 g/dL (2-4) 01/18/19 06:45 Albumin/Globulin Ratio 0.7 (1-3) L 01/18/19 06:45 Fluid Source Peritoneal 01/08/19 16:28 Fluid Volume 50.0 mL 01/08/19 16:28 Fluid Color Yellow 01/08/19 16:28 Fluid Appearance Clear 01/08/19 16:28 Fluid WBC 358 /mcL ([id number]) 01/08/19 16:28 Fluid RBC 313 /mcL 01/08/19 16:28 Fluid Tot Cell Count 100 01/08/19 16:28 Fluid Neutrophils 36 % 01/08/19 16:28 Fluid Band Neutrophils 1 % 01/08/19 16:28 Fluid Lymphocytes 4 % 01/08/19 16:28 Fluid Monocytes 58 % 01/08/19 16:28 Fluid Eosinophils 1 % 01/08/19 16:28 Fluid Other Cells 2 01/08/19 16:28 Fluid Cell Count Rvw By 01/08/19 16:28 Fluid Total Protein 4.1 g/dL 01/08/19 16:28 Fluid Comment 01/08/19 16:28 Random Vancomycin 6.3 mcg/mL 12/31/18 11:00 Hepatitis B Antibody Not immune (Immune) A 12/31/18 11:00 Hep Bs Antigen Negative (Negative) 12/31/18 11:00 Hepatitis C Antibody Negative (Negative) 01/19/19 06:11 Hepatitis C Ab Index 0.03 s/c 01/19/19 06:11 Miscellaneous Test See comments 01/08/19 16:28 Objective: A&O x3, NAD, wound vac intact and running, No erythema or swelling. Assessment: s/p left foot I&D and wound vac change Plan: Continue wound vac and elevation Continue current abx - cefazolin Wound vac change planned for Thursday
[2019-01-22] MEDS: ceFAZolin 1 GM ADVAN(*) 1 GM in NS 0.9% 50 ML* 50 ML IVPB SCH (15:47)
--- NOTE | 2019-01-22 18:01 | PN ---
Subjective Date of Service: 01/22/19 Interval History: Stopping fingersicks and insulin given very low requirements (most days not needing insulin, others will get 1 unit). Patient relieved. Green like his foot was throbbing overnight but it's ok now. Wound vac attachment is good. Objective Active Medications: Acetaminophen (Tylenol Tab*) 650 mg PO Q4H PRN PRN Reason: FEVER/PAIN Last Admin: 01/10/19 07:31 Dose: 650 mg Hydrocodone Bitart/Acetaminophen ([place] 5-325 Tab*) 2 tab PO Q4H PRN PRN Reason: PAIN Last Admin: 01/21/19 20:18 Dose: 2 tab Aspirin (Aspirin 81 Mg Chew Tab*) 81 mg PO DAILY [facility] Last Admin: 01/22/19 09:07 Dose: 81 mg Atorvastatin Calcium (Lipitor*) 80 mg PO QAM [facility] Last Admin: 01/22/19 09:07 Dose: 80 mg Calcium Carbonate (Tums*) 500 mg PO Q4H PRN PRN Reason: INDIGESTION Last Admin: 12/30/18 14:18 Dose: 500 mg Gemfibrozil (Lopid Tab*) 600 mg PO BID [facility] Last Admin: 01/22/19 09:07 Dose: 600 mg Cefazolin Sodium 1 gm/ Sodium (Chloride) 50 mls @ 200 mls/hr IVPB Q24H [facility] Last Admin: 01/22/19 15:47 Dose: 200 mls/hr Lidocaine/Prilocaine (Emla*) 1 applic TOPICAL MoWeFr [facility] Last Admin: 01/21/19 07:56 Dose: 1 applic Magnesium Hydroxide (Milk Of Magnandrew Liq*) 30 ml PO BID PRN PRN Reason: CONSTIPATION Melatonin (Melatonin) 3 mg PO BEDTIME PRN PRN Reason: SLEEP Last Admin: 01/16/19 21:49 Dose: 3 mg Morphine Sulfate (Morphine Inj (Syringe))*) 2 mg IV Q6H PRN PRN Reason: PAIN Last Admin: 01/21/19 16:33 Dose: 2 mg Ondansetron HCl (Zofran Odt Tab*) 4 mg SL Q6H PRN PRN Reason: NAUSEA/VOMITING Last Admin: 01/21/19 09:49 Dose: 4 mg Pantoprazole Sodium (Protonix Tab*) 40 mg PO DAILY [facility] Last Admin: 01/22/19 09:07 Dose: 40 mg Polyethylene Glycol/Electrolytes (Miralax*) 17 gm PO DAILY PRN PRN Reason: CONSTIPATION Senna (Senokot Tab*) 1 tab PO BEDTIME PRN PRN Reason: CONSTIPATION Last Admin: 01/17/19 09:25 Dose: 1 tab Sevelamer Carbonate (Renvela Tab*) 1,600 mg PO 0845,1245,1745 [facility] Last Admin: 01/22/19 12:32 Dose: 1,600 mg Vital Signs - 8 hr 01/22/19 01/22/19 12:00 13:52 Temperature 97.5 F Pulse Rate 113 Respiratory 18 Rate Blood Pressure 112/51 (mmHg) O2 Sat by Pulse 97 97 Oximetry Oxygen Devices in Use Now: None Appearance: pleasant man in NAD, lying flat Eyes: No Scleral Icterus Ears/Nose/Mouth/Throat: Clear Oropharnyx, Mucous Membranes Moist Neck: NL Appearance and Movements; NL JVP, Trachea Midline Respiratory: Clear to Auscultation, - - anteriorly Cardiovascular: NL Sounds; No Murmurs; No JVD, RRR Abdominal: NL Sounds; No Tenderness; No Distention, - - +fluid wave Extremities: No Edema, - - L foot s/p L 2nd to 5th ray amputation; wound vac attached Result Diagrams: 01/20/19 06:26 01/20/19 06:26 Assess/Plan/Problems-Billing Assessment: Mr El is a 73M with DM2 now controlled with diet, ESRD on HD, CAD, 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 Also with osteo of 5th metatarsal, now s/p L foot I&D and excision of 5th metatarsal base on 01/06. PCR in OR positive for Staph aureus without growth. S/p debridement of L lateral mid-foot with ostectomy, partial cuboid resection, I&D and vac (01/11 + 01/20). - Patient Problems (1) Subacute osteomyelitis, left ankle and foot Comment: - Ortho input appreciated - plan for Wound VAC change 01/24 - Culture grew MSSA - continue Cefazolin per ID - pain control for dressing changes and procedures - non-weightbearing on L foot; PT ordered (2) Ascites Comment: Seen on ultrasound, now s/p 8L paracentesis 01/08, with SAAG 0.4, PMNs only 128. Fluid culture is negative. 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 Hep B and C negative. - renal to discuss possibility of taking off more fluid during HD, although patient frequently hypotensive during HD - will order autoimmune panel, although less likely cirrhosis given normal platelets, low SAAG (3) ESRD (end stage renal disease) Comment: - Continue MWF dialysis. (4) Type 2 diabetes mellitus Comment: A1c 6.4%. Likely cured given renal disease. - continue carb-control (5) DVT prophylaxis Comment: Holding subq heparin given persistent bleeding from foot when on medical DVT ppx - ongoing risk of oozing causing wound vac to fail outweighs risk of DVT at this time, as continued bleeding will prolong hospitalization. Will initiate SCDs. (6) Full code status Current Visit: Yes Status: Acute Priority: High Code(s): Z78.9 - OTHER SPECIFIED HEALTH STATUS SNOMED Code(s): 233061211 Comment: Status and Disposition: Inpatient.
[2019-01-23 08:13] LABS: CO2 Carbon Dioxide 20 mmol/L (22-32); Calcium 7.7 mg/dL (8.6-10.3); Chloride 95 mmol/L (101-111); Sodium 131 mmol/L (135-145)
[2019-01-23 08:19] LABS: BUN/Creatinine Ratio 6.6 (8-20); Blood Urea Nitrogen 35 mg/dL (6-24); EGFR Non-African American 10.7 (>60); Glucose 123 mg/dL (70-100); Phosphorus 4.5 mg/dL (2.5-5.0)
[2019-01-23 08:20] LABS: Anion Gap 16 mmol/L (2-11)
[2019-01-23] MEDS: Sevelamer TAB* 800 MG PO SCH ×3 (08:36→18:16)
[2019-01-23] MEDS: Atorvastatin* 80 MG TAB PO SCH (08:37)
[2019-01-23] MEDS: Aspirin 81 mg CHEW TAB* 81 MG TAB.CHEW PO SCH (08:37)
[2019-01-23] MEDS: Pantoprazole TAB * 40 MG TAB PO SCH (08:37)
[2019-01-23] MEDS: Gemfibrozil TAB* 600 MG PO SCH ×2 (08:37→22:47)
--- NOTE | 2019-01-23 10:16 | PN ---
Progress Note - Progress Note Date of Service: 01/23/19 SOAP: Subjective: Pt seen at bedside. No complaint of pain. No new complaint today. Denies CP, SOB , F/C. Vital Signs: Temp Pulse Resp BP Pulse Ox 98.2 F 52 20 96/48 95 01/23/19 07:53 01/23/19 07:53 01/23/19 07:53 01/23/19 09:00 01/23/19 07:53 Laboratory Last Values WBC 5.5 10^3/uL (3.5-10.8) 01/20/19 06:26 RBC 3.01 10^6 /uL (4.18-5.48) L 01/20/19 06:26 Hgb 9.1 g/dL (14.0-18.0) L 01/20/19 06:26 Hct 28 % (42-52) L 01/20/19 06:26 MCV 92 fL (80-94) 01/20/19 06:26 MCH 30 pg (27-31) 01/20/19 06:26 MCHC 33 g/dL (31-36) 01/20/19 06:26 RDW 15 % (10-15) 01/20/19 06:26 Plt Count 232 10^3/uL (150-450) 01/20/19 06:26 MPV 7.4 fL (7.4-10.4) 01/20/19 06:26 Neut % (Auto) 66.6 % 01/20/19 06:26 Lymph % (Auto) 17.0 % 01/20/19 06:26 [place] % (Auto) 11.6 % 01/20/19 06:26 Eos % (Auto) 3.5 % 01/20/19 06:26 Baso % (Auto) 1.3 % 01/20/19 06:26 Absolute Neuts (auto) 3.7 10^3/ul (1.5-7.7) 01/20/19 06:26 Absolute Lymphs (auto) 0.9 10^3/ul (1.0-4.8) L 01/20/19 06:26 Absolute Monos (auto) 0.6 10^3/ul (0-0.8) 01/20/19 06:26 Absolute Eos (auto) 0.2 10^3/ul (0-0.6) 01/20/19 06:26 Absolute Basos (auto) 0.1 10^3/ul (0-0.2) 01/20/19 06:26 Absolute Nucleated RBC 0.0 10^3/ul 01/20/19 06:26 Nucleated RBC % 0.0 01/20/19 06:26 INR (Anticoag Therapy) 3.41 (0.82-1.09) H 01/20/19 06:26 Sodium 131 mmol/L (135-145) L 01/23/19 05:55 Potassium TNP 01/23/19 05:55 Chloride 95 mmol/L (101-111) L 01/23/19 05:55 Carbon Dioxide 20 mmol/L (22-32) L 01/23/19 05:55 Anion Gap 16 mmol/L (2-11) H 01/23/19 05:55 BUN 35 mg/dL (6-24) H 01/23/19 05:55 Creatinine 5.27 mg/dL (0.67-1.17) H 01/23/19 05:55 1/Creatinine 0.17 01/03/19 08:24 Est GFR ( Amer) 13.0 (>60) 01/23/19 05:55 Est GFR (Non-Af Amer) 10.7 (>60) 01/23/19 05:55 BUN/Creatinine Ratio 6.6 (8-20) L 01/23/19 05:55 Glucose 123 mg/dL (70-100) H 01/23/19 05:55 POC Glucose (mg/dL) 142 mg/dL (70-100) H 01/22/19 11:31 Hemoglobin A1c 6.4 % (4.0-5.6) H 01/18/19 06:45 Lactic Acid 2.2 mmol/L (0.5-2.0) H* 12/29/18 14:16 Calcium 7.7 mg/dL (8.6-10.3) L 01/23/19 05:55 Phosphorus 4.5 mg/dL (2.5-5.0) 01/23/19 05:55 Magnesium TNP 01/23/19 05:55 Total Bilirubin 0.40 mg/dL (0.2-1.0) 01/18/19 06:45 Direct Bilirubin 0.20 mg/dL (0.03-0.18) H 01/08/19 06:31 Indirect Bilirubin 0.4 mg/dL (0.3-1.0) 01/08/19 06:31 AST 18 U/L (13-39) 01/18/19 06:45 ALT < 3 U/L (7-52) L 01/18/19 06:45 Alkaline Phosphatase 99 U/L (34-104) 01/18/19 06:45 C-Reactive Protein 152.01 mg/L (<8.01) H 01/17/19 06:15 Total Protein 5.8 g/dL (6.4-8.9) L 01/18/19 06:45 Albumin 2.4 g/dL (3.2-5.2) L 01/18/19 06:45 Globulin 3.4 g/dL (2-4) 01/18/19 06:45 Albumin/Globulin Ratio 0.7 (1-3) L 01/18/19 06:45 Fluid Source Peritoneal 01/08/19 16:28 Fluid Volume 50.0 mL 01/08/19 16:28 Fluid Color Yellow 01/08/19 16:28 Fluid Appearance Clear 01/08/19 16:28 Fluid WBC 358 /mcL ([id number]) 01/08/19 16:28 Fluid RBC 313 /mcL 01/08/19 16:28 Fluid Tot Cell Count 100 01/08/19 16:28 Fluid Neutrophils 36 % 01/08/19 16:28 Fluid Band Neutrophils 1 % 01/08/19 16:28 Fluid Lymphocytes 4 % 01/08/19 16:28 Fluid Monocytes 58 % 01/08/19 16:28 Fluid Eosinophils 1 % 01/08/19 16:28 Fluid Other Cells 2 01/08/19 16:28 Fluid Cell Count Rvw By 01/08/19 16:28 Fluid Total Protein 4.1 g/dL 01/08/19 16:28 Fluid Comment 01/08/19 16:28 Random Vancomycin 6.3 mcg/mL 12/31/18 11:00 Anti-Nuclear Antibody 0.3 U 01/21/19 05:46 Hepatitis B Antibody Not immune (Immune) A 12/31/18 11:00 Hep Bs Antigen Negative (Negative) 12/31/18 11:00 Hepatitis C Antibody Negative (Negative) 01/19/19 06:11 Hepatitis C Ab Index 0.03 s/c 01/19/19 06:11 Miscellaneous Test See comments 01/08/19 16:28 Objective: A&O x3, NAD, Wound vac intact and running, No erythema or swelling. Assessment: s/p left foot I&D and wound vac placement Plan: Continue wound vac and elevation LLE Continue IV abx NPO after MN for wound vac change on Wednesday 01/24
[2019-01-23 12:51] LABS: Magnesium 1.9 mg/dL (1.9-2.7)
[2019-01-23] MEDS: ceFAZolin 1 GM ADVAN(*) 1 GM in NS 0.9% 50 ML* 50 ML IVPB SCH (15:15)
--- NOTE | 2019-01-23 18:24 | PN ---
Subjective Date of Service: 01/23/19 Interval History: Patient has no complaints today. He denies feeling dizzy/lightheaded, fever/ chills, chest pain, difficulty breathing, abd pain. He feels his foot/ankle pain is well controlled. No overnight concerns from nursing. Family History: Unchanged from Admission Social History: Unchanged from Admission Past Medical History: Unchanged from Admission Objective Active Medications: Acetaminophen (Tylenol Tab*) 650 mg PO Q4H PRN PRN Reason: FEVER/PAIN Last Admin: 01/10/19 07:31 Dose: 650 mg Hydrocodone Bitart/Acetaminophen ([place] 5-325 Tab*) 2 tab PO Q4H PRN PRN Reason: PAIN Last Admin: 01/21/19 20:18 Dose: 2 tab Aspirin (Aspirin 81 Mg Chew Tab*) 81 mg PO DAILY [facility] Last Admin: 01/23/19 08:37 Dose: 81 mg Atorvastatin Calcium (Lipitor*) 80 mg PO QAM [facility] Last Admin: 01/23/19 08:37 Dose: 80 mg Calcium Carbonate (Tums*) 500 mg PO Q4H PRN PRN Reason: INDIGESTION Last Admin: 12/30/18 14:18 Dose: 500 mg Gemfibrozil (Lopid Tab*) 600 mg PO BID [facility] Last Admin: 01/23/19 08:37 Dose: 600 mg Cefazolin Sodium 1 gm/ Sodium (Chloride) 50 mls @ 200 mls/hr IVPB Q24H [facility] Last Admin: 01/23/19 15:15 Dose: 200 mls/hr Lidocaine/Prilocaine (Emla*) 1 applic TOPICAL MoWeFr [facility] Last Admin: 01/21/19 07:56 Dose: 1 applic Magnesium Hydroxide (Milk Of Magnesia Liq*) 30 ml PO BID PRN PRN Reason: CONSTIPATION Melatonin (Melatonin) 3 mg PO BEDTIME PRN PRN Reason: SLEEP Last Admin: 01/16/19 21:49 Dose: 3 mg Morphine Sulfate (Morphine Inj (Syringe))*) 2 mg IV Q6H PRN PRN Reason: PAIN Last Admin: 01/21/19 16:33 Dose: 2 mg Ondansetron HCl (Zofran Odt Tab*) 4 mg SL Q6H PRN PRN Reason: NAUSEA/VOMITING Last Admin: 01/21/19 09:49 Dose: 4 mg Pantoprazole Sodium (Protonix Tab*) 40 mg PO DAILY [facility] Last Admin: 01/23/19 08:37 Dose: 40 mg Polyethylene Glycol/Electrolytes (Miralax*) 17 gm PO DAILY PRN PRN Reason: CONSTIPATION Senna (Senokot Tab*) 1 tab PO BEDTIME PRN PRN Reason: CONSTIPATION Last Admin: 01/17/19 09:25 Dose: 1 tab Sevelamer Carbonate (Renvela Tab*) 1,600 mg PO 0845,1245,1745 [facility] Last Admin: 01/23/19 18:16 Dose: Not Given Vital Signs - 8 hr 01/23/19 01/23/19 01/23/19 11:20 15:35 16:00 Temperature 98.2 F 98.5 F Pulse Rate 58 64 Respiratory 20 20 Rate Blood Pressure 105/40 112/51 (mmHg) O2 Sat by Pulse 99 100 100 Oximetry Oxygen Devices in Use Now: None Appearance: Elderly white male laying in bed appearing in NAD Eyes: No Scleral Icterus, PERRLA Ears/Nose/Mouth/Throat: Mucous Membranes Moist Neck: NL Appearance and Movements; NL JVP Respiratory: Symmetrical Chest Expansion and Respiratory Effort, Clear to Auscultation Cardiovascular: NL Sounds; No Murmurs; No JVD, RRR Abdominal: NL Sounds; No Tenderness; No Distention Extremities: No Edema, No Clubbing, Cyanosis, - - left 2-5 toes and lateral mid foot amputated; wound vac in place to left lateral ankle Skin: No Rash or Ulcers Neurological: Alert and Oriented x 3, NL Muscle Strength and Tone Result Diagrams: 01/20/19 06:26 01/23/19 12:09 Additional Lab and Data: Laboratory Results - last 24 hr 01/08/19 01/09/19 01/10/19 16:28 17:31 07:16 WBC RBC Hgb Hct MCV MCH MCHC RDW Plt Count MPV Neut % (Auto) Lymph % (Auto) [place] % (Auto) Eos % (Auto) Baso % (Auto) Absolute Neuts (auto) Absolute Lymphs (auto) Absolute Monos (auto) Absolute Eos (auto) Absolute Basos (auto) Absolute Nucleated RBC Nucleated RBC % Sodium Potassium Chloride Carbon Dioxide Anion Gap BUN Creatinine Est GFR ( Amer) Est GFR (Non-Af Amer) BUN/Creatinine Ratio Glucose POC Glucose (mg/dL) 141 H 131 H Calcium Total Bilirubin AST ALT Alkaline Phosphatase C-Reactive Protein Total Protein Albumin Globulin Albumin/Globulin Ratio Fluid Cell Count Rvw By 01/10/19 01/10/19 01/10/19 09:57 09:57 12:27 WBC 6.9 RBC 3.32 L Hgb 10.3 L Hct 31 L MCV 93 MCH 31 MCHC 33 RDW 14 Plt Count 212 MPV 7.1 L Neut % (Auto) 82.2 Lymph % (Auto) 7.6 [place] % (Auto) 7.6 Eos % (Auto) 1.9 Baso % (Auto) 0.7 Absolute Neuts (auto) 5.7 Absolute Lymphs (auto) 0.5 L Absolute Monos (auto) 0.5 Absolute Eos (auto) 0.1 Absolute Basos (auto) 0.0 Absolute Nucleated RBC 0.0 Nucleated RBC % 0.0 Sodium 132 L Potassium 4.2 Chloride 95 L Carbon Dioxide 26 Anion Gap 11 BUN 50 H Creatinine 6.31 H Est GFR ( Amer) 10.5 Est GFR (Non-Af Amer) 8.7 BUN/Creatinine Ratio 7.9 L Glucose 127 H POC Glucose (mg/dL) 127 H Calcium 8.2 L Total Bilirubin 0.50 AST 12 L ALT < 3 L Alkaline Phosphatase 99 C-Reactive Protein 242.28 H Total Protein 5.9 L Albumin 2.7 L Globulin 3.2 Albumin/Globulin Ratio 0.8 L Fluid Cell Count Rvw By 01/10/19 16:19 WBC RBC Hgb Hct MCV MCH MCHC RDW Plt Count MPV Neut % (Auto) Lymph % (Auto) [place] % (Auto) Eos % (Auto) Baso % (Auto) Absolute Neuts (auto) Absolute Lymphs (auto) Absolute Monos (auto) Absolute Eos (auto) Absolute Basos (auto) Absolute Nucleated RBC Nucleated RBC % Sodium Potassium Chloride Carbon Dioxide Anion Gap BUN Creatinine Est GFR ( Amer) Est GFR (Non-Af Amer) BUN/Creatinine Ratio Glucose POC Glucose (mg/dL) 168 H Calcium Total Bilirubin AST ALT Alkaline Phosphatase C-Reactive Protein Total Protein Albumin Globulin Albumin/Globulin Ratio Fluid Cell Count Rvw By Microbiology and Other Data: Microbiology 01/06/19 12:01 Foot Left Skin and Soft Tissue MRSA/MSSA (PCR - Final Mrsa Negative S.aureus Positive 01/06/19 12:01 Foot Left Gram Stain - Final 01/06/19 12:01 Foot Left Wound Culture - Preliminary No Growth Day 3 01/08/19 16:28 Body Fluid Gram Stain - Final 01/03/19 10:13 Foot Left Gram Stain - Final 01/03/19 10:13 Foot Left Wound Culture - Final Staphylococcus Aureus 12/29/18 14:15 Blood Venous Aerobic Blood Culture - Final No Growth Day 5 12/29/18 14:15 Blood Venous Anaerobic Blood Culture - Final No Growth Day 5 12/29/18 16:00 Foot Left Gram Stain - Final 12/29/18 16:00 Foot Left Wound Culture - Final Staphylococcus Aureus Normal Nadja 12/29/18 16:00 Foot Left Skin and Soft Tissue MRSA/MSSA (PCR - Final Mrsa Negative S.aureus Negative Diagnostic Imagin02/11/18 - VL ANK/BRACHIAL INDICES: Ankle-brachial indices: Right: Value (SBP) Index Brachial: 164 Posterior tibialis: Noncompressible Dorsalis pedis: Noncompressible Digit: 56 0.33 Left: Value (SBP) Index Brachial: 172 Posterior tibialis: Noncompressible Dorsalis pedis: Noncompressible Digit: 47 0.27 Doppler waveforms (acquired at rest): In the interrogated lower extremity arteries, Doppler waveforms are monophasic and the bilateral lower extremities with notably reduced amplitude at the right posterior tibial artery. Volume pulse recordings (acquired at rest): Volume pulse recordings measures 17 mm on the right and 35 mm on the left, a significant Assess/Plan/Problems-Billing Assessment: Mr El is a 73M with DM2 now controlled with diet, ESRD on HD, CAD, 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 Also with osteo of 5th metatarsal, now s/p L foot I&D and excision of 5th metatarsal base on 01/06. PCR in OR positive for Staph aureus without growth. S/p debridement of L lateral mid-foot with ostectomy, partial cuboid resection, I&D and vac (01/11 + 01/20). - Patient Problems (1) Subacute osteomyelitis, left ankle and foot Current Visit: Yes Status: Acute Priority: High Code(s): M86.272 - SUBACUTE OSTEOMYELITIS, LEFT ANKLE AND FOOT SNOMED Code(s): 06288150 Comment: - blood culture negative - Ortho input appreciated - plan for Wound VAC change 01/24 (tomorrow) - Culture grew MSSA - continue Cefazolin per ID - pain control for dressing changes and procedures - non-weightbearing on L foot - PT recommends rehab upon discharge (2) Ascites Current Visit: Yes Status: Acute Code(s): R18.8 - OTHER ASCITES SNOMED Code(s): 483143437 Comment: -Seen on ultrasound, now s/p 8L paracentesis 01/08, with SAAG 0.4, PMNs only 128. Fluid culture is negative. 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 Hep B and C negative. - renal to discuss possibility of taking off more fluid during HD, although patient frequently hypotensive during HD - will order autoimmune panel, although less likely cirrhosis given normal platelets, low SAAG; [place] negative; mitochondria M2 and anti-smooth muscle abs pending (3) Hyponatremia Current Visit: Yes Status: Acute Code(s): E87.1 - HYPO-OSMOLALITY AND HYPONATREMIA SNOMED Code(s): 46231147 Comment: -Na 131 today, though has been chronically low in the past -pt is asymptomatic, will continue to monitor (4) ESRD (end stage renal disease) Current Visit: Yes Status: Acute Priority: Medium Code(s): N18.6 - END STAGE RENAL DISEASE SNOMED Code(s): 77233759 Comment: - Continue MWF dialysis. (5) Type 2 diabetes mellitus Current Visit: Yes Status: Chronic Priority: Medium Comment: - A1c 6.4%. Likely cured given renal disease. - continue carb-control - no fingersticks given good BG control during this hospitalization (6) Coronary artery disease Current Visit: Yes Status: Acute Code(s): I25.10 - ATHSCL HEART DISEASE OF [place] CORONARY ARTERY W/O ANG PCTRS SNOMED Code(s): 18272295 Comment: -continue ASA, lipitor, gemfibrozil (7) DVT prophylaxis Current Visit: Yes Status: Acute Priority: Low Code(s): BXF2486 - SNOMED Code(s): 922443774 Comment: -Holding subq heparin given persistent bleeding from foot when on medical DVT ppx -ongoing risk of oozing causing wound vac to fail outweighs risk of DVT at this time, as continued bleeding will prolong hospitalization. -continue SCDs (8) Full code status Current Visit: Yes Status: Acute Priority: High Code(s): Z78.9 - OTHER SPECIFIED HEALTH STATUS SNOMED Code(s): 777123502 Comment: Status and Disposition: Inpatient.
[2019-01-23] MEDS: HYDROcodone/ACETAMIN 5-325 MG* 1 TAB PO PRN (19:25)
[2019-01-24 07:19] LABS: BUN/Creatinine Ratio 6.3 (8-20); Calcium 7.9 mg/dL (8.6-10.3); EGFR African American 10.1 (>60); EGFR Non-African American 8.4 (>60); Potassium 4.6 mmol/L (3.5-5.0)
[2019-01-24] MEDS: Sevelamer TAB* 800 MG PO SCH ×3 (07:52→18:14)
[2019-01-24] MEDS: Aspirin 81 mg CHEW TAB* 81 MG TAB.CHEW PO SCH (08:55)
[2019-01-24] MEDS: Gemfibrozil TAB* 600 MG PO SCH ×2 (08:55→22:24)
[2019-01-24] MEDS: Atorvastatin* 80 MG TAB PO SCH (08:55)
[2019-01-24] MEDS: Pantoprazole TAB * 40 MG TAB PO SCH (08:56)
[2019-01-24] MEDS: PRILOCAINE TOPICAL SCH (09:08)
[2019-01-24] MEDS: LIDOCAINE TOPICAL SCH (09:08)
[2019-01-24] MEDS ORDERED: Buffered Lidocaine 1% SYRIN* 1 ML/SYRINGE INTRADERM ONE (09:31)
[2019-01-24] MEDS ORDERED: NS 0.9% 1000 ML** 1,000 ML IV SCH (09:45)
[2019-01-24] MEDS: Lactated Ringers 1000 ML Bag* 1,000 ML IV SCH (10:14)
[2019-01-24] MEDS ORDERED: Midazolam* 1 MG/ML 2 ML VIAL (2 MG) ONE (10:43)
[2019-01-24] MEDS ORDERED: fentaNYL* 50 MCG/ML 2 ML VIAL (100 MCG VIAL) ONE ×3 (10:43→13:04)
[2019-01-24] MEDS ORDERED: Famotidine IV* 10 MG/ML 2 ML (20 mg) ONE (11:21)
[2019-01-24] MEDS ORDERED: Lidocaine 2% PF * 5 ML VIAL ONE (11:50)
[2019-01-24] MEDS ORDERED: Propofol* 10 MG/ML 20 ML BTL ONE (11:50)
[2019-01-24] MEDS ORDERED: Naloxone* 0.4 MG/ML 1 ML VIAL IV PRN (12:25)
[2019-01-24] MEDS: fentaNYL* 50 MCG/ML 2 ML VIAL (100 MCG VIAL) IV PRN ×5 (12:31→13:05)
[2019-01-24 13:07] LABS: Smooth Muscle Antibody Negative (Negative)
--- NOTE | 2019-01-24 14:04 | OP ---
DATE OF OPERATION: 01/24/19 - ROOM #421 DATE OF : 43 SURGEON: Byron Solomon MD CULTURE MANAGER: Mona Gerardo PA-C PRE-OP DIAGNOSIS: VAC dressing change, left foot. POST-OP DIAGNOSIS: OPERATIVE PROCEDURE: DESCRIPTION OF PROCEDURE: The patient was taken to the operating room where some IV sedation was administered, we removed the previous VAC dressing from the bed of the left medial, left lateral hind foot, and irrigated this thoroughly with 2 L of saline. A small amount of debridement was performed in the more plantar aspect, but in general, the tissues themselves appeared clean, but not particularly well vascularized, particularly the subcutaneous fat and muscle and the outer level of the cuboid bone. This after 10 days of intermittent VAC treatment. We then replaced the VAC dressing, sealing this successfully and applying the VAC pressure machine. [id number]/CPS #: [id number] MTDD
[2019-01-24 14:25] LABS: Mitochondria M2 Antibody <0.1 U
[2019-01-24] MEDS ORDERED: EPOETIN ALFA-EPBX * 2,000 UNIT/ML VIAL IV ONE (15:00)
[2019-01-24] MEDS ORDERED: EPOETIN ALFA-EPBX * 3,000 UNIT/ML VIAL IV ONE (15:00)
[2019-01-24] MEDS: ceFAZolin 1 GM ADVAN(*) 1 GM in NS 0.9% 50 ML* 50 ML IVPB SCH (18:14)
--- NOTE | 2019-01-24 20:20 | PN ---
Subjective Date of Service: 01/24/19 Interval History: Patient's has concerns about disposition. Discussed subacute rehab and she and patient are amenable. Patient receiving dialysis at time of evaluation. Is s/p wound vac change. Feels hungry. Points out "bump" on lower abdomen he noticed which is not painful. Denies abd pain, nausea/vomiting, fever/chills, chest pain, difficulty breathing, dizziness/lightheadedness. He has pain at his right foot/ankle. Family History: Unchanged from Admission Social History: Unchanged from Admission Past Medical History: Unchanged from Admission Objective Active Medications: Acetaminophen (Tylenol Tab*) 650 mg PO Q4H PRN PRN Reason: FEVER/PAIN Last Admin: 01/10/19 07:31 Dose: 650 mg Hydrocodone Bitart/Acetaminophen ([employer] 5-325 Tab*) 2 tab PO Q4H PRN PRN Reason: PAIN Last Admin: 01/23/19 19:25 Dose: 2 tab Aspirin (Aspirin 81 Mg Chew Tab*) 81 mg PO DAILY [facility] Last Admin: 01/24/19 08:55 Dose: Not Given Atorvastatin Calcium (Lipitor*) 80 mg PO QAM [facility] Last Admin: 01/24/19 08:55 Dose: Not Given Calcium Carbonate (Tums*) 500 mg PO Q4H PRN PRN Reason: INDIGESTION Last Admin: 12/30/18 14:18 Dose: 500 mg Gemfibrozil (Lopid Tab*) 600 mg PO BID [facility] Last Admin: 01/24/19 08:55 Dose: Not Given Cefazolin Sodium 1 gm/ Sodium (Chloride) 50 mls @ 200 mls/hr IVPB Q24H [facility] Last Admin: 01/24/19 18:14 Dose: 200 mls/hr Lactated Ringer's (Lactated Ringers 1000 Ml Bag*) 1,000 mls @ 125 mls/hr IV PER RATE [facility] Last Admin: 01/24/19 10:14 Dose: Not Given Sodium Chloride (Ns 0.9% 1000 Ml) 1,000 mls @ 25 mls/hr IV PER RATE [facility] Last Admin: 01/24/19 10:14 Dose: 25 mls/hr Lidocaine/Prilocaine (Emla*) 1 applic TOPICAL MoWeFr [facility] Last Admin: 01/24/19 09:08 Dose: Not Given Magnesium Hydroxide (Milk Of Magnesia Liq*) 30 ml PO BID PRN PRN Reason: CONSTIPATION Melatonin (Melatonin) 3 mg PO BEDTIME PRN PRN Reason: SLEEP Last Admin: 01/16/19 21:49 Dose: 3 mg Morphine Sulfate (Morphine Inj (Syringe))*) 2 mg IV Q6H PRN PRN Reason: PAIN Last Admin: 01/21/19 16:33 Dose: 2 mg Ondansetron HCl (Zofran Odt Tab*) 4 mg SL Q6H PRN PRN Reason: NAUSEA/VOMITING Last Admin: 01/21/19 09:49 Dose: 4 mg Pantoprazole Sodium (Protonix Tab*) 40 mg PO DAILY [facility] Last Admin: 01/24/19 08:56 Dose: Not Given Polyethylene Glycol/Electrolytes (Miralax*) 17 gm PO DAILY PRN PRN Reason: CONSTIPATION Senna (Senokot Tab*) 1 tab PO BEDTIME PRN PRN Reason: CONSTIPATION Last Admin: 01/17/19 09:25 Dose: 1 tab Sevelamer Carbonate (Renvela Tab*) 1,600 mg PO [id number] [facility] Last Admin: 01/24/19 18:14 Dose: 1,600 mg Vital Signs - 8 hr 01/24/19 01/24/19 01/24/19 12:16 12:21 12:26 Temperature Pulse Rate 58 54 Respiratory 16 22 19 Rate Blood Pressure 103/60 103/61 (mmHg) O2 Sat by Pulse 93 100 Oximetry 01/24/19 01/24/19 01/24/19 12:31 12:32 12:35 Temperature Pulse Rate 53 66 Respiratory 16 23 12 Rate Blood Pressure 92/54 98/56 (mmHg) O2 Sat by Pulse 100 100 Oximetry 01/24/19 01/24/19 01/24/19 12:36 12:40 12:41 Temperature Pulse Rate 56 Respiratory 16 18 16 Rate Blood Pressure (mmHg) O2 Sat by Pulse 100 Oximetry 01/24/19 01/24/19 01/24/19 12:46 13:01 13:05 Temperature Pulse Rate 63 55 Respiratory 13 24 16 Rate Blood Pressure 92/54 104/58 (mmHg) O2 Sat by Pulse 100 100 Oximetry 01/24/19 01/24/19 01/24/19 13:16 13:40 14:00 Temperature 97.7 F Pulse Rate 56 Respiratory 16 18 Rate Blood Pressure 101/55 134/67 (mmHg) O2 Sat by Pulse 97 Oximetry 01/24/19 01/24/19 01/24/19 14:22 14:30 15:30 Temperature 98.4 F 97.5 F Pulse Rate 60 61 Respiratory 18 16 18 Rate Blood Pressure 90/48 89/41 (mmHg) O2 Sat by Pulse 99 99 Oximetry 01/24/19 16:21 Temperature Pulse Rate Respiratory 20 Rate Blood Pressure (mmHg) O2 Sat by Pulse Oximetry Oxygen Devices in Use Now: None Appearance: Elderly white male laying in hospital bed, at time grimacing due to pain in LE but otherwise in NAD Eyes: No Scleral Icterus, PERRLA Ears/Nose/Mouth/Throat: Mucous Membranes Moist Neck: NL Appearance and Movements; NL JVP Respiratory: Symmetrical Chest Expansion and Respiratory Effort, Clear to Auscultation Cardiovascular: NL Sounds; No Murmurs; No JVD, RRR Abdominal: NL Sounds; No Tenderness; No Distention, - Lymphatic: - - approx 1.5 cm palpable lymph node in RLQ near inguinal region, nontender to palpation Extremities: No Edema, No Clubbing, Cyanosis, - - wound vac to left foot Neurological: Alert and Oriented x 3, NL Muscle Strength and Tone Result Diagrams: 01/20/19 06:26 01/24/19 06:37 Additional Lab and Data: Laboratory Results - last 24 hr 01/08/19 01/09/19 01/10/19 16:28 17:31 07:16 WBC RBC Hgb Hct MCV MCH MCHC RDW Plt Count MPV Neut % (Auto) Lymph % (Auto) Simpson % (Auto) Eos % (Auto) Baso % (Auto) Absolute Neuts (auto) Absolute Lymphs (auto) Absolute Monos (auto) Absolute Eos (auto) Absolute Basos (auto) Absolute Nucleated RBC Nucleated RBC % Sodium Potassium Chloride Carbon Dioxide Anion Gap BUN Creatinine Est GFR ( Amer) Est GFR (Non-Af Amer) BUN/Creatinine Ratio Glucose POC Glucose (mg/dL) 141 H 131 H Calcium Total Bilirubin AST ALT Alkaline Phosphatase C-Reactive Protein Total Protein Albumin Globulin Albumin/Globulin Ratio Fluid Cell Count Rvw By 01/10/19 01/10/19 01/10/19 09:57 09:57 12:27 WBC 6.9 RBC 3.32 L Hgb 10.3 L Hct 31 L MCV 93 MCH 31 MCHC 33 RDW 14 Plt Count 212 MPV 7.1 L Neut % (Auto) 82.2 Lymph % (Auto) 7.6 Simpson % (Auto) 7.6 Eos % (Auto) 1.9 Baso % (Auto) 0.7 Absolute Neuts (auto) 5.7 Absolute Lymphs (auto) 0.5 L Absolute Monos (auto) 0.5 Absolute Eos (auto) 0.1 Absolute Basos (auto) 0.0 Absolute Nucleated RBC 0.0 Nucleated RBC % 0.0 Sodium 132 L Potassium 4.2 Chloride 95 L Carbon Dioxide 26 Anion Gap 11 BUN 50 H Creatinine 6.31 H Est GFR ( Amer) 10.5 Est GFR (Non-Af Amer) 8.7 BUN/Creatinine Ratio 7.9 L Glucose 127 H POC Glucose (mg/dL) 127 H Calcium 8.2 L Total Bilirubin 0.50 AST 12 L ALT < 3 L Alkaline Phosphatase 99 C-Reactive Protein 242.28 H Total Protein 5.9 L Albumin 2.7 L Globulin 3.2 Albumin/Globulin Ratio 0.8 L Fluid Cell Count Rvw By 01/10/19 16:19 WBC RBC Hgb Hct MCV MCH MCHC RDW Plt Count MPV Neut % (Auto) Lymph % (Auto) Simpson % (Auto) Eos % (Auto) Baso % (Auto) Absolute Neuts (auto) Absolute Lymphs (auto) Absolute Monos (auto) Absolute Eos (auto) Absolute Basos (auto) Absolute Nucleated RBC Nucleated RBC % Sodium Potassium Chloride Carbon Dioxide Anion Gap BUN Creatinine Est GFR ( Amer) Est GFR (Non-Af Amer) BUN/Creatinine Ratio Glucose POC Glucose (mg/dL) 168 H Calcium Total Bilirubin AST ALT Alkaline Phosphatase C-Reactive Protein Total Protein Albumin Globulin Albumin/Globulin Ratio Fluid Cell Count Rvw By Microbiology and Other Data: Microbiology 01/06/19 12:01 Foot Left Skin and Soft Tissue MRSA/MSSA (PCR - Final Mrsa Negative S.aureus Positive 01/06/19 12:01 Foot Left Gram Stain - Final 01/06/19 12:01 Foot Left Wound Culture - Preliminary No Growth Day 3 01/08/19 16:28 Body Fluid Gram Stain - Final 01/03/19 10:13 Foot Left Gram Stain - Final 01/03/19 10:13 Foot Left Wound Culture - Final Staphylococcus Aureus 12/29/18 14:15 Blood Venous Aerobic Blood Culture - Final No Growth Day 5 12/29/18 14:15 Blood Venous Anaerobic Blood Culture - Final No Growth Day 5 12/29/18 16:00 Foot Left Gram Stain - Final 12/29/18 16:00 Foot Left Wound Culture - Final Staphylococcus Aureus Normal Nadja 12/29/18 16:00 Foot Left Skin and Soft Tissue MRSA/MSSA (PCR - Final Mrsa Negative S.aureus Negative Diagnostic Imagin02/11/18 - VL ANK/BRACHIAL INDICES: Ankle-brachial indices: Right: Value (SBP) Index Brachial: 164 Posterior tibialis: Noncompressible Dorsalis pedis: Noncompressible Digit: 56 0.33 Left: Value (SBP) Index Brachial: 172 Posterior tibialis: Noncompressible Dorsalis pedis: Noncompressible Digit: 47 0.27 Doppler waveforms (acquired at rest): In the interrogated lower extremity arteries, Doppler waveforms are monophasic and the bilateral lower extremities with notably reduced amplitude at the right posterior tibial artery. Volume pulse recordings (acquired at rest): Volume pulse recordings measures 17 mm on the right and 35 mm on the left, a significant Assess/Plan/Problems-Billing Assessment: Mr El is a 73M with DM2 now controlled with diet, ESRD on HD, CAD, 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 Also with osteo of 5th metatarsal, now s/p L foot I&D and excision of 5th metatarsal base on 01/06. PCR in OR positive for Staph aureus without growth. S/p debridement of L lateral mid-foot with ostectomy, partial cuboid resection, I&D and vac (01/11 + 01/20). - Patient Problems (1) Subacute osteomyelitis, left ankle and foot Current Visit: Yes Status: Acute Priority: High Code(s): M86.272 - SUBACUTE OSTEOMYELITIS, LEFT ANKLE AND FOOT SNOMED Code(s): 22686056 Comment: - Wound culture grew MSSA - continue Cefazolin per ID - blood culture negative - pain control for dressing changes and procedures - non-weightbearing on L foot - PT recommends rehab upon discharge - wound vac changed today and will need next change on 01/27/19 - due to poor healing, ortho recommended ABIs, pending - palpable lymph node today consistent with acute infection, will recommend follow up at discharge (2) Ascites Current Visit: Yes Status: Acute Code(s): R18.8 - OTHER ASCITES SNOMED Code(s): 323509715 Comment: -Seen on ultrasound, now s/p 8L paracentesis 01/08, with SAAG 0.4, PMNs only 128. Fluid culture is negative. 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 Hep B and C negative. - renal to discuss possibility of taking off more fluid during HD, although patient frequently hypotensive during HD - will order autoimmune panel, although less likely cirrhosis given normal platelets, low SAAG; PARISH negative; mitochondria M2 and anti-smooth muscle abs pending (3) Hyponatremia Current Visit: Yes Status: Acute Code(s): E87.1 - HYPO-OSMOLALITY AND HYPONATREMIA SNOMED Code(s): 79460782 Comment: -Na 131 again today, stable -pt is asymptomatic, will continue to monitor (4) ESRD (end stage renal disease) Current Visit: Yes Status: Acute Priority: Medium Code(s): N18.6 - END STAGE RENAL DISEASE SNOMED Code(s): 96229586 Comment: - Continue MWF dialysis. - Dr. Martínez today concerned regarding poor output with AV fisutla, ordered doppler of AV fistula (5) Type 2 diabetes mellitus Current Visit: Yes Status: Chronic Priority: Medium Comment: - A1c 6.4%. Likely cured given renal disease. - continue carb-control - no fingersticks given good BG control during this hospitalization (6) Coronary artery disease Current Visit: Yes Status: Acute Code(s): I25.10 - ATHSCL HEART DISEASE OF [place] CORONARY ARTERY W/O ANG PCTRS SNOMED Code(s): 31301602 Comment: -continue ASA, lipitor, gemfibrozil (7) DVT prophylaxis Current Visit: Yes Status: Acute Priority: Low Code(s): CLU8408 - SNOMED Code(s): 965912619 Comment: -Holding subq heparin given persistent bleeding from foot when on medical DVT ppx -ongoing risk of oozing causing wound vac to fail outweighs risk of DVT at this time, as continued bleeding will prolong hospitalization. -continue SCDs (8) Full code status Current Visit: Yes Status: Acute Priority: High Code(s): Z78.9 - OTHER SPECIFIED HEALTH STATUS SNOMED Code(s): 655161178 Comment: Status and Disposition: Inpatient.
[2019-01-24] MEDS: HYDROcodone/ACETAMIN 5-325 MG* 1 TAB PO PRN (23:28)
[2019-01-25] MEDS: Morphine INJ* 2 MG/ML 1 ML SYRINGE (TWO MG - NEW SYRINGE VERSION) IV PRN (01:02)
[2019-01-25] MEDS: Lactated Ringers 1000 ML Bag* 1,000 ML IV SCH (01:03)
--- NOTE | 2019-01-25 03:28 | PN ---
PROGRESS NOTE/DIALYSIS NOTE: DATE OF DIALYSIS: 01/24/19 SERVICE: [facility] Nephrology. SUBJECTIVE: The patient was seen and examined during dialysis, HD orders discussed with nurse. The patient is tolerating the procedure well. PHYSICAL EXAM: HEENT: NC/AT. Heart: S1, S2 present. Regular rate and rhythm. Lungs: Decreased breath sounds bilaterally. Abdomen: Soft. Minimal ascites. Extremities: Noted to have edema. Dressing in place. ASSESSMENT AND PLAN: 1. End-stage renal disease, on hemodialysis. The patient is tolerating his dialysis well. Routine dialysis orders are being performed. 2. We will target an UF of 2 L as tolerated. 3. The patient is noted to have somewhat decreased flow through his access. The patient is not able to get 400 to 450 blood flows and currently only able to get 300 cc. In light of this, recommend getting an ultrasound of his access. The patient may later need fistulogram and angioplasty, but we will first evaluate with ultrasound. 4. We will follow with the medical opinion. [id number]/THALIA #: [id number]
[2019-01-25 07:38] LABS: BUN/Creatinine Ratio 6.2 (8-20); Calcium 7.7 mg/dL (8.6-10.3); EGFR African American 16.2 (>60); EGFR Non-African American 13.4 (>60); Potassium 4.2 mmol/L (3.5-5.0)
[2019-01-25] MEDS: Sevelamer TAB* 800 MG PO SCH ×3 (09:16→18:12)
[2019-01-25] MEDS: Pantoprazole TAB * 40 MG TAB PO SCH (09:16)
[2019-01-25] MEDS: Aspirin 81 mg CHEW TAB* 81 MG TAB.CHEW PO SCH (09:17)
[2019-01-25] MEDS: Gemfibrozil TAB* 600 MG PO SCH ×2 (09:17→21:44)
[2019-01-25] MEDS: Atorvastatin* 80 MG TAB PO SCH (09:17)
[2019-01-25] MEDS: HYDROcodone/ACETAMIN 5-325 MG* 1 TAB PO PRN ×2 (09:57→15:13)
[2019-01-25] MEDS: ceFAZolin 1 GM ADVAN(*) 1 GM in NS 0.9% 50 ML* 50 ML IVPB SCH (15:14)
--- NOTE | 2019-01-25 15:22 | CONSULT ---
Consult Consult: Date of Service: 01/25/19 Patient see and evaluated at the bedside. His Juliette was also called on the telephone at the bedside an angiography was discussed with her. Reason for Consultation: Chronic left foot wound in a vasculopath Requesting Service: Orthopaedic Surgery (Dr. Solomon) (Focused) HPI: Mr. 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 He presented to the hospital 01/04/19 with a known wound to his left lateral foot and is followed by the [facility]. Since his admission he has undergone additional debridements of his chronic left foot wound, most recently the previous day 01/24/2019. Prior to the left foot wounds the patient reports claudication pain the left- [id number] calves with ~50 yard walking limitation. He also reports night time "dung horses" on occasion. - Review of Systems Constitutional Symptoms: Negative: Fever, Other - Chills Inpatient Medications: See [facility] Physical Exam: Selected Entries 01/25/19 01/25/19 01/25/19 03:12 08:00 15:13 Temperature 98.2 F Temperature Oral Source Pulse Rate 59 Respiratory 20 Rate Blood Pressure 101/55 (mmHg) Vital Signs BP manual Comment recheck done Blood Pressure 70 Mean O2 Sat by Pulse 95 Oximetry Sitting in chair AAO x 3, NAD Left foot wrapped in sterile gauze and elevated RRR, S1/S2 CTAB with crackles at the lung bases bilaterally LUE dialysis fistula with palpable thrill 2+ pulses at bilateral ACCOUNT MANAGEMENT ASSISTANT 1+ pulse at left pop Cannot palpate ankle pulses Relevant Labs: Laboratory Tests 01/20/19 01/20/19 01/25/19 06:26 06:26 05:49 WBC 5.5 RBC 3.01 L Hgb 9.1 L Hct 28 L Plt Count 232 INR (Anticoag Therapy) 3.41 H BUN 27 H Creatinine 4.36 H Est GFR (Non-Af Amer) 13.4 Imaging: EXAM: MR Left Lower Extremity Without Contrast, Foot IMPRESSION: 1. Motion artifact is problematic on several sequences. 2. 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 No acute fracture. 3. Detail of the great toe is limited. There appears to be infiltrative change suggesting cellulitis distally. There is not a definite visualized abscess, nor is there current convincing evidence for osteomyelitis. <Electronically signed by Arnaldo Borja MD in [place]> 12/29/182222 Dictated By: Arnaldo Borja MD Dictated Date/Time: 12/29/182222 Transcribed Date/Time: Left Lower Extremity Arterial Duplex Widespread calcified atherosclerosis that is "chunky" in portions of the left ACCOUNT MANAGEMENT ASSISTANT and SFA. Relative increased flow velocity at the mid-level left SFA indicating stenosis. No flow identified in the left peroneal artery. No flow can be identified in the distalmost LEAD SALES CONSULTANT and plantar arteries. Summary: 73-year-old man with multiple risk factors for flow limiting atherosclerosis with both physical exam findings and objective imaging findings for left lower leg arterial insufficiency. The chronic left foot wounds and history of left foot amputations are consistent with "critical limb ischemia". As was discussed with the patient at the bedside and over the telephone with his , the patient might realize improved wound healing if arterial flow can be restored/augmented to the left foot. Plan & Recommendations: 1. Left leg arteriography 01/26/2019 at 1300 hrs to more precisely locate and quantify stenoses and/or arterial occlusions. At this time lesions may be identified that are amenable to endovascular revascularization. 2. Continue high-quality wound care and surgical management with foot and ankle orthopedic surgery.
--- NOTE | 2019-01-25 15:44 | PN ---
Subjective Date of Service: 01/25/19 Interval History: Patient's tells me that the patient expressed passive suicidal ideations to his daughter several days ago. Reportedly, patient said "I want to take all my pills at once and just give up." Today, atient reports he is feeling overwhelmed and discouraged, and has been for 6 months. He denies suicidal ideation and homicidal ideation, and says he wants to be alive. He refuses residential finish carpenter referral. Reports he was feeling dizziness when transferring with physical therapy earlier but is resolved at time of evaluation. Denies chest pain, difficulty breathing, abd pain, fever/ chills. Feels his left foot/ankle pain is improved from yesterday but does still have pain. Family History: Unchanged from Admission Social History: Unchanged from Admission Past Medical History: Unchanged from Admission Objective Active Medications: Acetaminophen (Tylenol Tab*) 650 mg PO Q4H PRN PRN Reason: FEVER/PAIN Last Admin: 01/10/19 07:31 Dose: 650 mg Hydrocodone Bitart/Acetaminophen ([place] 5-325 Tab*) 2 tab PO Q4H PRN PRN Reason: PAIN Last Admin: 01/25/19 15:13 Dose: 2 tab Aspirin (Aspirin 81 Mg Chew Tab*) 81 mg PO DAILY [facility] Last Admin: 01/25/19 09:17 Dose: 81 mg Atorvastatin Calcium (Lipitor*) 80 mg PO QAM [facility] Last Admin: 01/25/19 09:17 Dose: 80 mg Calcium Carbonate (Tums*) 500 mg PO Q4H PRN PRN Reason: INDIGESTION Last Admin: 12/30/18 14:18 Dose: 500 mg Gemfibrozil (Lopid Tab*) 600 mg PO BID [facility] Last Admin: 01/25/19 09:17 Dose: 600 mg Cefazolin Sodium 1 gm/ Sodium (Chloride) 50 mls @ 200 mls/hr IVPB Q24H [facility] Last Admin: 01/25/19 15:14 Dose: 200 mls/hr Lidocaine/Prilocaine (Emla*) 1 applic TOPICAL MoWeFr [facility] Last Admin: 01/24/19 09:08 Dose: Not Given Magnesium Hydroxide (Milk Of Magnesia Liq*) 30 ml PO BID PRN PRN Reason: CONSTIPATION Melatonin (Melatonin) 3 mg PO BEDTIME PRN PRN Reason: SLEEP Last Admin: 01/16/19 21:49 Dose: 3 mg Morphine Sulfate (Morphine Inj (Syringe))*) 2 mg IV Q6H PRN PRN Reason: PAIN Last Admin: 01/25/19 01:02 Dose: 2 mg Ondansetron HCl (Zofran Odt Tab*) 4 mg SL Q6H PRN PRN Reason: NAUSEA/VOMITING Last Admin: 01/21/19 09:49 Dose: 4 mg Pantoprazole Sodium (Protonix Tab*) 40 mg PO DAILY [facility] Last Admin: 01/25/19 09:16 Dose: 40 mg Polyethylene Glycol/Electrolytes (Miralax*) 17 gm PO DAILY PRN PRN Reason: CONSTIPATION Senna (Senokot Tab*) 1 tab PO BEDTIME PRN PRN Reason: CONSTIPATION Last Admin: 01/17/19 09:25 Dose: 1 tab Sevelamer Carbonate (Renvela Tab*) 1,600 mg PO [id number] [facility] Last Admin: 01/25/19 13:46 Dose: 1,600 mg Vital Signs - 8 hr 01/25/19 01/25/19 01/25/19 08:00 09:57 12:21 Pulse Rate 59 Respiratory 16 20 20 Rate Blood Pressure 101/55 (mmHg) O2 Sat by Pulse 95 Oximetry 01/25/19 15:13 Pulse Rate Respiratory 20 Rate Blood Pressure (mmHg) O2 Sat by Pulse Oximetry Oxygen Devices in Use Now: None Appearance: elderly white male sitting in hospital chair appearing comfortable, tearful at times Eyes: No Scleral Icterus, PERRLA Ears/Nose/Mouth/Throat: Mucous Membranes Moist Neck: NL Appearance and Movements; NL JVP Respiratory: Symmetrical Chest Expansion and Respiratory Effort, Clear to Auscultation Cardiovascular: NL Sounds; No Murmurs; No JVD, RRR Abdominal: - - abd soft, nontender, nondistended Extremities: No Edema, No Clubbing, Cyanosis, - - left food and ankle in gauze, wound vac in place Neurological: Alert and Oriented x 3, NL Muscle Strength and Tone Result Diagrams: 01/20/19 06:26 01/25/19 05:49 Additional Lab and Data: Microbiology and Other Data: Microbiology 01/06/19 12:01 Foot Left Skin and Soft Tissue MRSA/MSSA (PCR - Final Mrsa Negative S.aureus Positive 01/06/19 12:01 Foot Left Gram Stain - Final 01/06/19 12:01 Foot Left Wound Culture - Preliminary No Growth Day 3 01/08/19 16:28 Body Fluid Gram Stain - Final 01/03/19 10:13 Foot Left Gram Stain - Final 01/03/19 10:13 Foot Left Wound Culture - Final Staphylococcus Aureus 12/29/18 14:15 Blood Venous Aerobic Blood Culture - Final No Growth Day 5 12/29/18 14:15 Blood Venous Anaerobic Blood Culture - Final No Growth Day 5 12/29/18 16:00 Foot Left Gram Stain - Final 12/29/18 16:00 Foot Left Wound Culture - Final Staphylococcus Aureus Normal Nadja 12/29/18 16:00 Foot Left Skin and Soft Tissue MRSA/MSSA (PCR - Final Mrsa Negative S.aureus Negative Diagnostic Imagin02/11/18 - VL ANK/BRACHIAL INDICES: Ankle-brachial indices: Right: Value (SBP) Index Brachial: 164 Posterior tibialis: Noncompressible Dorsalis pedis: Noncompressible Digit: 56 0.33 Left: Value (SBP) Index Brachial: 172 Posterior tibialis: Noncompressible Dorsalis pedis: Noncompressible Digit: 47 0.27 Doppler waveforms (acquired at rest): In the interrogated lower extremity arteries, Doppler waveforms are monophasic and the bilateral lower extremities with notably reduced amplitude at the right posterior tibial artery. Volume pulse recordings (acquired at rest): Volume pulse recordings measures 17 mm on the right and 35 mm on the left, a significant Assess/Plan/Problems-Billing Assessment: Mr El is a 73M with DM2 now controlled with diet, ESRD on HD, CAD, 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 Also with osteo of 5th metatarsal, now s/p L foot I&D and excision of 5th metatarsal base on 01/06. PCR in OR positive for Staph aureus without growth. S/p debridement of L lateral mid-foot with ostectomy, partial cuboid resection, I&D and vac (01/11 + 01/20). - Patient Problems (1) Subacute osteomyelitis, left ankle and foot Code(s): M86.272 - SUBACUTE OSTEOMYELITIS, LEFT ANKLE AND FOOT SNOMED Code(s) : 08598719 Comment: - Wound culture grew MSSA - continue Cefazolin per ID - blood culture negative - pain control for dressing changes and procedures - non-weightbearing on L foot - PT recommends rehab upon discharge - wound vac changed 01/24/19 and will need next change on 01/27/19 per ortho - due to poor healing, obtained left arterial duplex, which demonstrated no flow in peroneal artery or distal posterial tibial/plantar arteries - Dr. Cosby suggests arteriography tomorrow (2) Passive suicidal ideations Code(s): R45.851 - SUICIDAL IDEATIONS SNOMED Code(s): 5587990 Comment: -reports from -today, patient denies suicidal ideation but reports he has been feeling overwhelmed; he and his state he has been feeling this way for 6 months -it appears the patient has depression, would start SSRI but given his comorbidities I will consult psychiatry for best medical management; appreciate psychiatry recommendations -refused residential finish carpenter consult (3) Ascites Code(s): R18.8 - OTHER ASCITES SNOMED Code(s): 864116938 Comment: - Seen on ultrasound, now s/p 8L paracentesis 01/08, with SAAG 0.4, PMNs only 128. Fluid culture is negative. 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 - less likely cirrhosis given low SAAG - renal to discuss possibility of taking off more fluid during HD, although patient frequently hypotensive during HD - Hep B/C negative; PARISH negative; mitochondria M2 and anti-smooth muscle abs also negative (4) ESRD (end stage renal disease) Code(s): N18.6 - END STAGE RENAL DISEASE SNOMED Code(s): 19630944 Comment: - Continue MWF dialysis. - Dr. Martínez concerned regarding poor output with AV fisutla at dialysis , ordered doppler of AV fistula, pending (5) Hyponatremia Code(s): E87.1 - HYPO-OSMOLALITY AND HYPONATREMIA SNOMED Code(s): 31409023 Comment: -Na 132 today, stable -pt with dizziness today but only when exerting with transfers with PT (6) Type 2 diabetes mellitus Comment: - A1c 6.4%. Likely cured given renal disease. - continue carb-control - no fingersticks given good BG control during this hospitalization (7) Coronary artery disease Code(s): I25.10 - ATHSCL HEART DISEASE OF [place] CORONARY ARTERY W/O ANG PCTRS SNOMED Code(s): 22670594 Comment: -continue ASA, lipitor, gemfibrozil (8) DVT prophylaxis Code(s): VRH6532 - SNOMED Code(s): 691783192 Comment: -Holding subq heparin given persistent bleeding from foot when on medical DVT ppx -ongoing risk of oozing causing wound vac to fail outweighs risk of DVT at this time, as continued bleeding will prolong hospitalization. -continue SCDs (9) Full code status Code(s): Z78.9 - OTHER SPECIFIED HEALTH STATUS SNOMED Code(s): 895699260 Comment: Status and Disposition: Inpatient.
[2019-01-25] MEDS: Melatonin 3 MG TAB PO PRN (21:44)
[2019-01-26] MEDS: Pantoprazole TAB * 40 MG TAB PO SCH ×2 (10:01→11:14)
[2019-01-26] MEDS: Aspirin 81 mg CHEW TAB* 81 MG TAB.CHEW PO SCH ×2 (10:01→11:14)
[2019-01-26] MEDS: Gemfibrozil TAB* 600 MG PO SCH ×3 (10:01→21:46)
[2019-01-26] MEDS: Atorvastatin* 80 MG TAB PO SCH ×2 (10:01→11:14)
[2019-01-26] MEDS: Sevelamer TAB* 800 MG PO SCH ×4 (10:01→21:46)
--- NOTE | 2019-01-26 10:01 | PN ---
Progress Note - Progress Note Date of Service: 01/26/19 SOAP: Subjective: CC: Left foot infection HPI: Mr. 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 Reports the pain in the left foot has mostly resolved. Denies fever, chills, ABD pain, nausea, vomiting , or diarrhea. He is starting to feel discouraged from being in the hospital for so long. He is anticipating a procedure later today with Dr. Cosby. Objective: Vital Signs - 8 hr 01/26/19 02:41 Temperature 98.7 F Pulse Rate 47 Respiratory 20 Rate Blood Pressure 106/40 (mmHg) O2 Sat by Pulse 97 Oximetry Physical Exam: General: NAD, laying in bed Neurological: Alert and Oriented HEENT: No thrush, moist MM Cardiovascular: Heart rate regular Respiratory: Lung sounds clear bilateral Abdominal: Bowel sounds present; ABD soft, large and non tender Skin: No rash. Wound vac and dressing intact to left foot Laboratory Last Values WBC 5.5 10^3/uL (3.5-10.8) 01/20/19 06:26 RBC 3.01 10^6 /uL (4.18-5.48) L 01/20/19 06:26 Hgb 9.1 g/dL (14.0-18.0) L 01/20/19 06:26 Hct 28 % (42-52) L 01/20/19 06:26 MCV 92 fL (80-94) 01/20/19 06:26 MCH 30 pg (27-31) 01/20/19 06:26 MCHC 33 g/dL (31-36) 01/20/19 06:26 RDW 15 % (10-15) 01/20/19 06:26 Plt Count 232 10^3/uL (150-450) 01/20/19 06:26 MPV 7.4 fL (7.4-10.4) 01/20/19 06:26 Neut % (Auto) 66.6 % 01/20/19 06:26 Lymph % (Auto) 17.0 % 01/20/19 06:26 [place] % (Auto) 11.6 % 01/20/19 06:26 Eos % (Auto) 3.5 % 01/20/19 06:26 Baso % (Auto) 1.3 % 01/20/19 06:26 Absolute Neuts (auto) 3.7 10^3/ul (1.5-7.7) 01/20/19 06:26 Absolute Lymphs (auto) 0.9 10^3/ul (1.0-4.8) L 01/20/19 06:26 Absolute Monos (auto) 0.6 10^3/ul (0-0.8) 01/20/19 06:26 Absolute Eos (auto) 0.2 10^3/ul (0-0.6) 01/20/19 06: Absolute Basos (auto) 0.1 10^3/ul (0-0.2) 01/20/19 06: Absolute Nucleated RBC 0.0 10^3/ul 01/20/19 06: Nucleated RBC % 0.0 01/20/19 06:26 INR (Anticoag Therapy) 3.41 (0.82-1.09) H 01/20/19 06:26 Sodium 132 mmol/L (135-145) L 01/25/19 05:49 Potassium 4.2 mmol/L (3.5-5.0) 01/25/19 05:49 Chloride 93 mmol/L (101-111) L 01/25/19 05:49 Carbon Dioxide 31 mmol/L (22-32) 01/25/19 05:49 Anion Gap 8 mmol/L (2-11) 01/25/19 05:49 BUN 27 mg/dL (6-24) H 01/25/19 05:49 Creatinine 4.36 mg/dL (0.67-1.17) H 01/25/19 05:49 1/Creatinine 0.17 01/03/19 08:24 Est GFR ( Amer) 16.2 (>60) 01/25/19 05:49 Est GFR (Non-Af Amer) 13.4 (>60) 01/25/19 05:49 BUN/Creatinine Ratio 6.2 (8-20) L 01/25/19 05:49 Glucose 133 mg/dL (70-100) H 01/25/19 05:49 POC Glucose (mg/dL) 142 mg/dL (70-100) H 01/22/19 11:31 Hemoglobin A1c 6.4 % (4.0-5.6) H 01/18/19 06:45 Lactic Acid 2.2 mmol/L (0.5-2.0) H* 12/29/18 14:16 Calcium 7.7 mg/dL (8.6-10.3) L 01/25/19 05:49 Phosphorus 4.5 mg/dL (2.5-5.0) 01/23/19 05:55 Magnesium 1.9 mg/dL (1.9-2.7) 01/23/19 12:09 Total Bilirubin 0.40 mg/dL (0.2-1.0) 01/18/19 06:45 Direct Bilirubin 0.20 mg/dL (0.03-0.18) H 01/08/19 06:31 Indirect Bilirubin 0.4 mg/dL (0.3-1.0) 01/08/19 06:31 AST 18 U/L (13-39) 01/18/19 06:45 ALT < 3 U/L (7-52) L 01/18/19 06:45 Alkaline Phosphatase 99 U/L (34-104) 01/18/19 06:45 C-Reactive Protein 152.01 mg/L (<8.01) H 01/17/19 06:15 Total Protein 5.8 g/dL (6.4-8.9) L 01/18/19 06:45 Albumin 2.4 g/dL (3.2-5.2) L 01/18/19 06:45 Globulin 3.4 g/dL (2-4) 01/18/19 06:45 Albumin/Globulin Ratio 0.7 (1-3) L 01/18/19 06:45 Fluid Source Peritoneal 01/08/19 16:28 Fluid Volume 50.0 mL 01/08/19 16:28 Fluid Color Yellow 01/08/19 16:28 Fluid Appearance Clear 01/08/19 16:28 Fluid WBC 358 /mcL (0-072722) 01/08/19 16:28 Fluid RBC 313 /mcL 01/08/19 16:28 Fluid Tot Cell Count 100 01/08/19 16:28 Fluid Neutrophils 36 % 01/08/19 16:28 Fluid Band Neutrophils 1 % 01/08/19 16:28 Fluid Lymphocytes 4 % 01/08/19 16:28 Fluid Monocytes 58 % 01/08/19 16:28 Fluid Eosinophils 1 % 01/08/19 16:28 Fluid Other Cells 2 01/08/19 16:28 Fluid Cell Count Rvw By 01/08/19 16:28 Fluid Total Protein 4.1 g/dL 01/08/19 16:28 Fluid Comment 01/08/19 16:28 Random Vancomycin 6.3 mcg/mL 12/31/18 11:00 Anti-Nuclear Antibody 0.3 U 01/21/19 05:46 Mitochondria M2 Ab <0.1 U 01/21/19 05:46 Anti-Smooth Muscle Ab Negative (Negative) 01/21/19 05:46 Hepatitis B Antibody Not immune (Immune) A 12/31/18 11:00 Hep Bs Antigen Negative (Negative) 12/31/18 11:00 Hepatitis C Antibody Negative (Negative) 01/19/19 06:11 Hepatitis C Ab Index 0.03 s/c 01/19/19 06:11 Miscellaneous Test See comments 01/08/19 16:28 Microbiology 01/11/19 15:05 Anaerobic Culture - Final Wound No Growth Day 4 01/11/19 15:05 Skin and Soft Tissue MRSA/MSSA (PCR - Final Foot Left Mrsa Negative S.aureus Positive Gram Stain - Final Wound Culture - Final No Growth Day 4 01/08/19 16:28 Sterile Body Fluid Culture - Final Peritoneal Fluid No Growth Day 5 Sterile Body Fluid Culture - Final No Growth Day 5 01/06/19 12:01 Anaerobic Culture - Final Wound No Growth Day 4 01/06/19 12:01 Skin and Soft Tissue MRSA/MSSA (PCR - Final Foot Left Mrsa Negative S.aureus Positive Gram Stain - Final Wound Culture - Final No Growth Day 4 01/08/19 16:28 Gram Stain - Final Body Fluid 01/03/19 10:13 Gram Stain - Final Foot Left Wound Culture - Final Staphylococcus Aureus 12/29/18 14:15 Aerobic Blood Culture - Final Blood Venous No Growth Day 5 Anaerobic Blood Culture - Final No Growth Day 5 12/29/18 16:00 Gram Stain - Final Foot Left Wound Culture - Final Staphylococcus Aureus Normal Jero 12/29/18 16:00 Skin and Soft Tissue MRSA/MSSA (PCR - Final Foot Left Mrsa Negative S.aureus Negative Gram Stain - Final Wound Culture - Final Normal Jero Assessment: 1. Left foot cellulitis with acute and chronic osteomyelitis of the 5th metatarsal. Initial left foot wound culture with normal jero and staph aureus. Repeat culture on 01/03 with staph aureus. S/P multiple left foot surgeries during this admission including a left foot I+D and excision of 5th metatarsal base, additional debridement and ostectomy with partial cuboid resection, I+D and VAC dressing on 01/11/19, and wound vac dressing changes in the OR. Last trip to the OR was 01/24/19. Cultures obtained in the OR on 01/06 with PCR positive for staph aureus and no growth day 5. Cultures obtained in the OR with PCR positive for staph aureus, no growth in final cultures. Pathology from the bone sample from the original surgery with acute and chronic osteomyelitis. Plan for arteriography later today with Dr. Cosby. Afebrile and no leukocytosis. 2. DM2 with neuropathy. 3. ESRD on hemodialysis. Plan: Continue Cefazolin for now, day 20/42-56. Weekly labs while on IV ABX; CBC, CMP , and CRP. Further recommendations, IV vs PO ABX at discharge pending clinical course.
[2019-01-26] MEDS: LIDOCAINE TOPICAL SCH (11:55)
[2019-01-26] MEDS: PRILOCAINE TOPICAL SCH (11:55)
[2019-01-26] MEDS ORDERED: Lidocaine 1% INJ* 10 MG/ML 30 ML SDV ONE (13:17)
[2019-01-26] MEDS ORDERED: Heparin 2 UNITS/ML IVPREMIX* 3,000 UNIT/1,500 ML BAG IV ONE (13:17)
[2019-01-26] MEDS ORDERED: Midazolam* 1 MG/ML 5 ML VIAL (5 MG) ONE (13:34)
[2019-01-26] MEDS ORDERED: fentaNYL* 50 MCG/ML 2 ML VIAL (100 MCG VIAL) ONE ×3 (13:34→15:52)
[2019-01-26] MEDS ORDERED: Iodixanol 320 (CONTRAST) 100 ML SDV ONE (13:44)
[2019-01-26] MEDS ORDERED: Heparin(*) 1000 UNIT/ML 10 ML VIAL CATH LAB IV ONE (14:34)
[2019-01-26] MEDS ORDERED: nitroGLYCERIN DRIP* 25,000 MCG/250 ML BTL ONE (14:45)
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
--- NOTE | 2019-01-26 18:50 | PN ---
Subjective Date of Service: 01/26/19 Interval History: Patient evaluated after arteriography. Reportedly, pedal pulses found with doppler. Feeling well, reports feeling hungry. Denies chest pain, fever/chills, difficulty breathing, abd pain, nausea, vomiting. Family History: Unchanged from Admission Social History: Unchanged from Admission Past Medical History: Unchanged from Admission Objective Active Medications: Acetaminophen (Tylenol Tab*) 650 mg PO Q4H PRN PRN Reason: FEVER/PAIN Last Admin: 01/10/19 07:31 Dose: 650 mg Hydrocodone Bitart/Acetaminophen ([place] 5-325 Tab*) 2 tab PO Q4H PRN PRN Reason: PAIN Last Admin: 01/25/19 15:13 Dose: 2 tab Aspirin (Aspirin 81 Mg Chew Tab*) 81 mg PO DAILY [facility] Last Admin: 01/26/19 11:14 Dose: 81 mg Atorvastatin Calcium (Lipitor*) 80 mg PO QAM [facility] Last Admin: 01/26/19 11:14 Dose: 80 mg Calcium Carbonate (Tums*) 500 mg PO Q4H PRN PRN Reason: INDIGESTION Last Admin: 12/30/18 14:18 Dose: 500 mg Gemfibrozil (Lopid Tab*) 600 mg PO BID [facility] Last Admin: 01/26/19 11:14 Dose: 600 mg Cefazolin Sodium 1 gm/ Sodium (Chloride) 50 mls @ 200 mls/hr IVPB Q24H [facility] Last Admin: 01/25/19 15:14 Dose: 200 mls/hr Lidocaine/Prilocaine (Emla*) 1 applic TOPICAL MoWeFr [facility] Last Admin: 01/26/19 11:55 Dose: Not Given Magnesium Hydroxide (Milk Of Magnesia Liq*) 30 ml PO BID PRN PRN Reason: CONSTIPATION Melatonin (Melatonin) 3 mg PO BEDTIME PRN PRN Reason: SLEEP Last Admin: 01/25/19 21:44 Dose: 3 mg Mirtazapine (Remeron Tab*) 7.5 mg PO BEDTIME [facility] Morphine Sulfate (Morphine Inj (Syringe))*) 2 mg IV Q6H PRN PRN Reason: PAIN Last Admin: 01/25/19 01:02 Dose: 2 mg Ondansetron HCl (Zofran Odt Tab*) 4 mg SL Q6H PRN PRN Reason: NAUSEA/VOMITING Last Admin: 01/21/19 09:49 Dose: 4 mg Pantoprazole Sodium (Protonix Tab*) 40 mg PO DAILY [facility] Last Admin: 01/26/19 11:14 Dose: 40 mg Polyethylene Glycol/Electrolytes (Miralax*) 17 gm PO DAILY PRN PRN Reason: CONSTIPATION Senna (Senokot Tab*) 1 tab PO BEDTIME PRN PRN Reason: CONSTIPATION Last Admin: 01/17/19 09:25 Dose: 1 tab Sevelamer Carbonate (Renvela Tab*) 1,600 mg PO 0845,1245,1745 [facility] Last Admin: 01/26/19 12:42 Dose: Not Given Vital Signs - 8 hr 01/26/19 01/26/19 01/26/19 11:30 17:38 17:41 Temperature 98.3 F Pulse Rate 69 66 74 Respiratory 19 23 18 Rate Blood Pressure 133/57 114/57 114/52 (mmHg) O2 Sat by Pulse 96 95 88 Oximetry 01/26/19 01/26/19 01/26/19 17:46 18:01 18:03 Temperature Pulse Rate 68 64 68 Respiratory 21 17 25 Rate Blood Pressure 126/61 117/59 (mmHg) O2 Sat by Pulse 100 99 97 Oximetry 01/26/19 01/26/19 18:16 18:30 Temperature Pulse Rate 56 66 Respiratory 14 18 Rate Blood Pressure 106/55 125/59 (mmHg) O2 Sat by Pulse 99 100 Oximetry Oxygen Devices in Use Now: None Appearance: Elderly white male laying supine in PACU appearing in NAD Eyes: No Scleral Icterus, PERRLA Ears/Nose/Mouth/Throat: Mucous Membranes Moist Neck: NL Appearance and Movements; NL JVP Respiratory: Symmetrical Chest Expansion and Respiratory Effort, Clear to Auscultation Cardiovascular: NL Sounds; No Murmurs; No JVD, RRR Abdominal: - - abd soft nontender nondistended Extremities: No Edema, No Clubbing, Cyanosis, - - wound vac to left ankle, in dressing Skin: No Rash or Ulcers Neurological: Alert and Oriented x 3, - - no focal deficit Result Diagrams: 01/20/19 06:26 01/25/19 05:49 Additional Lab and Data: Microbiology and Other Data: Microbiology 01/06/19 12:01 Foot Left Skin and Soft Tissue MRSA/MSSA (PCR - Final Mrsa Negative S.aureus Positive 01/06/19 12:01 Foot Left Gram Stain - Final 01/06/19 12:01 Foot Left Wound Culture - Preliminary No Growth Day 3 01/08/19 16:28 Body Fluid Gram Stain - Final 01/03/19 10:13 Foot Left Gram Stain - Final 01/03/19 10:13 Foot Left Wound Culture - Final Staphylococcus Aureus 12/29/18 14:15 Blood Venous Aerobic Blood Culture - Final No Growth Day 5 12/29/18 14:15 Blood Venous Anaerobic Blood Culture - Final No Growth Day 5 12/29/18 16:00 Foot Left Gram Stain - Final 12/29/18 16:00 Foot Left Wound Culture - Final Staphylococcus Aureus Normal Nadja 12/29/18 16:00 Foot Left Skin and Soft Tissue MRSA/MSSA (PCR - Final Mrsa Negative S.aureus Negative Diagnostic Imagin02/11/18 - VL ANK/BRACHIAL INDICES: Ankle-brachial indices: Right: Value (SBP) Index Brachial: 164 Posterior tibialis: Noncompressible Dorsalis pedis: Noncompressible Digit: 56 0.33 Left: Value (SBP) Index Brachial: 172 Posterior tibialis: Noncompressible Dorsalis pedis: Noncompressible Digit: 47 0.27 Doppler waveforms (acquired at rest): In the interrogated lower extremity arteries, Doppler waveforms are monophasic and the bilateral lower extremities with notably reduced amplitude at the right posterior tibial artery. Volume pulse recordings (acquired at rest): Volume pulse recordings measures 17 mm on the right and 35 mm on the left, a significant Assess/Plan/Problems-Billing Assessment: Mr El is a 73M with DM2 now controlled with diet, ESRD on HD, CAD, 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 Also with osteo of 5th metatarsal, now s/p L foot I&D and excision of 5th metatarsal base on 01/06. PCR in OR positive for Staph aureus without growth. S/p debridement of L lateral mid-foot with ostectomy, partial cuboid resection, I&D and vac (01/11 + 01/20). - Patient Problems (1) Subacute osteomyelitis, left ankle and foot Code(s): M86.272 - SUBACUTE OSTEOMYELITIS, LEFT ANKLE AND FOOT SNOMED Code(s) : 05887434 Comment: - Wound culture grew MSSA - continue Cefazolin per ID - blood culture negative - pain control for dressing changes and procedures - non-weightbearing on L foot - PT recommends rehab upon discharge - wound vac changed 01/24/19 and will need next change on 01/27/19 per ortho - due to poor healing, obtained left arterial duplex, which demonstrated no flow in peroneal artery or distal posterial tibial/plantar arteries - Dr. 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 Henriquez evaluated patient and given hyponatremia and ESRD, recommends mirtazapine (3) Ascites Code(s): R18.8 - OTHER ASCITES SNOMED Code(s): 033179834 Comment: - Seen on ultrasound, now s/p 8L paracentesis 01/08, with SAAG 0.4, PMNs only 128. Fluid culture is negative. 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 - less likely cirrhosis given low SAAG - renal to discuss possibility of taking off more fluid during HD, although patient frequently hypotensive during HD - Hep B/C negative; PARISH negative; mitochondria M2 and anti-smooth muscle abs also negative (4) ESRD (end stage renal disease) Code(s): N18.6 - END STAGE RENAL DISEASE SNOMED Code(s): 82738755 Comment: - normally MWF dialysis; due to procedure today, will receive dialysis tomorrow (01/27) - Dr. Martínez concerned regarding poor output with AV fisutla at dialysis , ordered doppler of AV fistula which has sufficient flow for now but she recommends fistulogram in the future (likely outpatient) (5) Hyponatremia Code(s): E87.1 - HYPO-OSMOLALITY AND HYPONATREMIA SNOMED Code(s): 95729303 Comment: -appears chronic, it doesn't appear this has had workup in the past and will order urine osm, serum osm, urine Na -pt with dizziness today but only when exerting with transfers with PT (6) Type 2 diabetes mellitus Comment: - A1c 6.4%. Likely cured given renal disease. - continue carb-control - no fingersticks given good BG control during this hospitalization (7) Coronary artery disease Code(s): I25.10 - ATHSCL HEART DISEASE OF [place] CORONARY ARTERY W/O ANG PCTRS SNOMED Code(s): 95947637 Comment: -continue ASA, lipitor, gemfibrozil (8) DVT prophylaxis Code(s): ZJG1110 - SNOMED Code(s): 081033371 Comment: -Holding subq heparin given persistent bleeding from foot when on medical DVT ppx -ongoing risk of oozing causing wound vac to fail outweighs risk of DVT at this time, as continued bleeding will prolong hospitalization. -continue SCDs (9) Full code status Code(s): Z78.9 - OTHER SPECIFIED HEALTH STATUS SNOMED Code(s): 522354099 Comment: Status and Disposition: Inpatient. Will need [facility]
--- NOTE | 2019-01-26 19:56 | PN ---
Progress Note - Progress Note Date of Service: 01/26/19 SOAP: Subjective: Denies pain in left groin or new pain in LLE. No SOB Objective: Selected Entries 01/26/19 19:16 Pulse Rate 69 Heart Rate 65 Respiratory 17 Rate Blood Pressure 113/58 (mmHg) Blood Pressure 89 Mean O2 Sat by Pulse 99 Oximetry NAD, AAO x 3 Left groin is soft, nontender, but there is +ooze at dressing. Dressing removed and there is steady, slow dark red bleeding (no pulsatility) Left TAIL TRIMMER is palpable Assessment: 73 YOM status post antegrade left common femoral arteriotomy, LLE arteriography , revascularization of mostly occluded left TAIL TRIMMER, balloon angioplasty of left SFA , tibioperoneal trunk and left TAIL TRIMMER. 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 Slow "ooze" at percutaneous site. No pain, swelling or other signs of arterial bleed. Plan: 1. A "figure of 8" suture was tied over the left groin percutaneous arteriotomy site. Bleeding subsequently controlled. 2. Add Plavix 37.5 mg PO daily x 90 days. 3. Continue wound care, orthopaedic management and infection control per respective services.
[2019-01-26] MEDS: Melatonin 3 MG TAB PO PRN (21:46)
[2019-01-26] MEDS: Mirtazapine TAB* 15 MG PO SCH (21:46)
[2019-01-26] MEDS: ceFAZolin 1 GM ADVAN(*) 1 GM in NS 0.9% 50 ML* 50 ML IVPB SCH (21:46)
[2019-01-26] MEDS: Clopidogrel TAB* 75 MG PO SCH (21:47)
--- NOTE | 2019-01-27 09:36 | PN ---
Progress Note - Progress Note Date of Service: 01/27/19 SOAP: Subjective: spoke with patient during his dialysis, no complaints of pain. Revascularization last night Objective: Vital Signs Temp Pulse Resp BP Pulse Ox 98.1 F 67 20 123/54 100 01/27/19 08:21 01/27/19 08:21 01/27/19 08:21 01/27/19 08:21 01/27/19 08:21 Laboratory Last Values WBC 5.5 10^3/uL (3.5-10.8) 01/20/19 06:26 RBC 3.01 10^6 /uL (4.18-5.48) L 01/20/19 06:26 Hgb 9.1 g/dL (14.0-18.0) L 01/20/19 06:26 Hct 28 % (42-52) L 01/20/19 06:26 MCV 92 fL (80-94) 01/20/19 06:26 MCH 30 pg (27-31) 01/20/19 06:26 MCHC 33 g/dL (31-36) 01/20/19 06:26 RDW 15 % (10-15) 01/20/19 06:26 Plt Count 232 10^3/uL (150-450) 01/20/19 06:26 MPV 7.4 fL (7.4-10.4) 01/20/19 06:26 Neut % (Auto) 66.6 % 01/20/19 06:26 Lymph % (Auto) 17.0 % 01/20/19 06:26 [place] % (Auto) 11.6 % 01/20/19 06:26 Eos % (Auto) 3.5 % 01/20/19 06:26 Baso % (Auto) 1.3 % 01/20/19 06:26 Absolute Neuts (auto) 3.7 10^3/ul (1.5-7.7) 01/20/19 06:26 Absolute Lymphs (auto) 0.9 10^3/ul (1.0-4.8) L 01/20/19 06:26 Absolute Monos (auto) 0.6 10^3/ul (0-0.8) 01/20/19 06:26 Absolute Eos (auto) 0.2 10^3/ul (0-0.6) 01/20/19 06:26 Absolute Basos (auto) 0.1 10^3/ul (0-0.2) 01/20/19 06:26 Absolute Nucleated RBC 0.0 10^3/ul 01/20/19 06:26 Nucleated RBC % 0.0 01/20/19 06:26 INR (Anticoag Therapy) 3.41 (0.82-1.09) H 01/20/19 06:26 POC Activ Clotting Time 288 seconds 01/26/19 16:30 Sodium 132 mmol/L (135-145) L 01/25/19 05:49 Potassium 4.2 mmol/L (3.5-5.0) 01/25/19 05:49 Chloride 93 mmol/L (101-111) L 01/25/19 05:49 Carbon Dioxide 31 mmol/L (22-32) 01/25/19 05:49 Anion Gap 8 mmol/L (2-11) 01/25/19 05:49 BUN 27 mg/dL (6-24) H 01/25/19 05:49 Creatinine 4.36 mg/dL (0.67-1.17) H 01/25/19 05:49 1/Creatinine 0.17 01/03/19 08:24 Est GFR ( Amer) 16.2 (>60) 01/25/19 05:49 Est GFR (Non-Af Amer) 13.4 (>60) 01/25/19 05:49 BUN/Creatinine Ratio 6.2 (8-20) L 01/25/19 05:49 Glucose 133 mg/dL (70-100) H 01/25/19 05:49 POC Glucose (mg/dL) 142 mg/dL (70-100) H 01/22/19 11:31 Hemoglobin A1c 6.4 % (4.0-5.6) H 01/18/19 06:45 Lactic Acid 2.2 mmol/L (0.5-2.0) H* 12/29/18 14:16 Calcium 7.7 mg/dL (8.6-10.3) L 01/25/19 05:49 Phosphorus 4.5 mg/dL (2.5-5.0) 01/23/19 05:55 Magnesium 1.9 mg/dL (1.9-2.7) 01/23/19 12:09 Total Bilirubin 0.40 mg/dL (0.2-1.0) 01/18/19 06:45 Direct Bilirubin 0.20 mg/dL (0.03-0.18) H 01/08/19 06:31 Indirect Bilirubin 0.4 mg/dL (0.3-1.0) 01/08/19 06:31 AST 18 U/L (13-39) 01/18/19 06:45 ALT < 3 U/L (7-52) L 01/18/19 06:45 Alkaline Phosphatase 99 U/L (34-104) 01/18/19 06:45 C-Reactive Protein 152.01 mg/L (<8.01) H 01/17/19 06:15 Total Protein 5.8 g/dL (6.4-8.9) L 01/18/19 06:45 Albumin 2.4 g/dL (3.2-5.2) L 01/18/19 06:45 Globulin 3.4 g/dL (2-4) 01/18/19 06:45 Albumin/Globulin Ratio 0.7 (1-3) L 01/18/19 06:45 Fluid Source Peritoneal 01/08/19 16:28 Fluid Volume 50.0 mL 01/08/19 16:28 Fluid Color Yellow 01/08/19 16:28 Fluid Appearance Clear 01/08/19 16:28 Fluid WBC 358 /mcL (0-219205) 01/08/19 16:28 Fluid RBC 313 /mcL 01/08/19 16:28 Fluid Tot Cell Count 100 01/08/19 16:28 Fluid Neutrophils 36 % 01/08/19 16:28 Fluid Band Neutrophils 1 % 01/08/19 16:28 Fluid Lymphocytes 4 % 01/08/19 16:28 Fluid Monocytes 58 % 01/08/19 16:28 Fluid Eosinophils 1 % 01/08/19 16:28 Fluid Other Cells 2 01/08/19 16:28 Fluid Cell Count Rvw By 01/08/19 16:28 Fluid Total Protein 4.1 g/dL 01/08/19 16:28 Fluid Comment 01/08/19 16:28 Random Vancomycin 6.3 mcg/mL 12/31/18 11:00 Anti-Nuclear Antibody 0.3 U 01/21/19 05:46 Mitochondria M2 Ab <0.1 U 01/21/19 05:46 Anti-Smooth Muscle Ab Negative (Negative) 01/21/19 05:46 Hepatitis B Antibody Not immune (Immune) A 12/31/18 11:00 Hep Bs Antigen Negative (Negative) 12/31/18 11:00 Hepatitis C Antibody Negative (Negative) 01/19/19 06:11 Hepatitis C Ab Index 0.03 s/c 01/19/19 06:11 Miscellaneous Test See comments 01/08/19 16:28 incision: dressing LLE intact/clean, wound vac in place Assessment: LLE infection with wound vac, s/p revascularization Plan: 1) will change wound vac 01/28, then again Thursday 2) continue IV abx 3) will watch wound closely, hold off on sx for now since revascularization was successful
[2019-01-27] MEDS ORDERED: Heparin DIALYSIS ONLY(*) 1,000 UNITS/ML VIAL DIALYSIS ONE (10:00)
[2019-01-27] MEDS ORDERED: EPOETIN ALFA-EPBX * 3,000 UNIT/ML VIAL IV ONE (10:00)
[2019-01-27] MEDS: Sevelamer TAB* 800 MG PO SCH ×3 (10:59→18:47)
[2019-01-27] MEDS: Gemfibrozil TAB* 600 MG PO SCH ×2 (10:59→20:30)
[2019-01-27] MEDS: Atorvastatin* 80 MG TAB PO SCH (10:59)
[2019-01-27] MEDS: Aspirin 81 mg CHEW TAB* 81 MG TAB.CHEW PO SCH (10:59)
[2019-01-27] MEDS: Clopidogrel TAB* 75 MG PO SCH (10:59)
[2019-01-27] MEDS: Pantoprazole TAB * 40 MG TAB PO SCH (11:00)
--- NOTE | 2019-01-27 12:23 | PN ---
Subjective Date of Service: 01/27/19 Interval History: Mr. El is not feeling well this morning, but he is unable to further describe this feeling. He had just finished dialysis on my exam. He reported feeling tired. Denies CP, SOB. Wants me to come back when his is here to explain what is going on. No concerns from nursing. Dialysis nurse took off 800mL today, but did not take off more d/t soft pressures. Family History: Unchanged from Admission Social History: Unchanged from Admission Past Medical History: Unchanged from Admission Objective Active Medications: Acetaminophen (Tylenol Tab*) 650 mg PO Q4H PRN FEVER/PAIN Hydrocodone Bitart/Acetaminophen ([place] 5-325 Tab*) 2 tab PO Q4H PRN PAIN Aspirin (Aspirin 81 Mg Chew Tab*) 81 mg PO DAILY [facility] Atorvastatin Calcium (Lipitor*) 80 mg PO QAM [facility] Calcium Carbonate (Tums*) 500 mg PO Q4H PRN INDIGESTION Clopidogrel Bisulfate (Plavix Tab*) 37.5 mg PO DAILY [facility] Gemfibrozil (Lopid Tab*) 600 mg PO BID [facility] Cefazolin Sodium 1 gm/ Sodium (Chloride) 50 mls @ 200 mls/hr IVPB Q24H [facility] Lidocaine/Prilocaine (Emla*) 1 applic TOPICAL MoWeFr [facility] Magnesium Hydroxide (Milk Of Magnesia Liq*) 30 ml PO BID PRN CONSTIPATION Melatonin (Melatonin) 3 mg PO BEDTIME PRN SLEEP Mirtazapine (Remeron Tab*) 7.5 mg PO BEDTIME [facility] Morphine Sulfate (Morphine Inj (Syringe))*) 2 mg IV Q6H PRN PAIN Ondansetron HCl (Zofran Odt Tab*) 4 mg SL Q6H PRN NAUSEA/VOMITING Pantoprazole Sodium (Protonix Tab*) 40 mg PO DAILY [facility] Polyethylene Glycol/Electrolytes (Miralax*) 17 gm PO DAILY PRN CONSTIPATION Senna (Senokot Tab*) 1 tab PO BEDTIME PRN CONSTIPATION Sevelamer Carbonate (Renvela Tab*) 1,600 mg PO 0845,1245,1745 [facility] Vital Signs - 8 hr 01/27/19 01/27/19 08:00 08:21 Temperature 98.1 F Pulse Rate 67 Respiratory 18 20 Rate Blood Pressure 123/54 (mmHg) O2 Sat by Pulse 100 100 Oximetry Oxygen Devices in Use Now: None Appearance: Elderly male laying in bed in NAD Eyes: No Scleral Icterus Ears/Nose/Mouth/Throat: Mucous Membranes Moist Neck: NL Appearance and Movements; NL JVP, Trachea Midline Respiratory: Symmetrical Chest Expansion and Respiratory Effort, Clear to Auscultation Cardiovascular: NL Sounds; No Murmurs; No JVD, RRR Abdominal: NL Sounds; No Tenderness; No Distention Extremities: - - +1 pitting BLE Neurological: - - Oriented to self and place Nutrition: Taking PO's Result Diagrams: 01/20/19 06:26 01/25/19 05:49 Assess/Plan/Problems-Billing Assessment: Mr El is a 73 M with PMH of DM2 now controlled with diet, ESRD on HD, CAD, 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 Also with osteo of 5th metatarsal, now s /p L foot I&D and excision of 5th metatarsal base on 01/06. PCR in OR positive for Staph aureus without growth. S/p debridement of L lateral mid-foot with ostectomy, partial cuboid resection, I&D and vac (01/11 + 01/20). - Patient Problems (1) Subacute osteomyelitis, left ankle and foot Code(s): M86.272 - SUBACUTE OSTEOMYELITIS, LEFT ANKLE AND FOOT Comment: - Wound culture grew MSSA - Blood cultures negative - NWB LLE - Wound vac changed due to be changed tomorrow by Ortho - Pain control for dressing changes and procedures - Continue cefazolin per ID (day -) (2) PAD (peripheral artery disease) Code(s): I73.9 - PERIPHERAL VASCULAR DISEASE, UNSPECIFIED Comment: - S/p LLE revascularization 12/27/[address] 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 Martínez concerned regarding poor output with AV fisutla at dialysis , ordered doppler of AV fistula which has sufficient flow for now but she recommends fistulogram in the future (likely outpatient) - Continue sevelamer (5) Hyponatremia Code(s): E87.1 - HYPO-OSMOLALITY AND HYPONATREMIA Comment: - Appears chronic and remains stable - Does not appear to have been worked up in the past - Pending urine osm, serum osm, urine Na (6) Passive suicidal ideations Code(s): R45.851 - SUICIDAL IDEATIONS Comment: - Reports from - Patient denies suicidal ideation but reports he has been feeling overwhelmed; he and his state he has been feeling this way for 6 months - Dr. Henriquez evaluated patient and given hyponatremia and ESRD recommends mirtazapine - Continue mirtazapine (7) Coronary artery disease Code(s): I25.10 - ATHSCL HEART DISEASE OF [place] CORONARY ARTERY W/O ANG PCTRS Comment: - Continue aspirin, atorvastatin, gemfibrozil (8) Anemia Code(s): D64.9 - ANEMIA, UNSPECIFIED Comment: - Stable, normocytic anemia - Suspect anemia of chronic disease and CKD - Continue Epoetin Alpha per Nephrology (9) Type 2 diabetes mellitus Comment: - A1c 6.4% - No fingersticks given good BG control during this hospitalization (10) DVT prophylaxis Comment: - SCDs - Persistent bleeding from foot when on medical DVT ppx; ongoing risk of oozing causing wound vac to fail outweighs risk of DVT at this time, as continued bleeding will prolong hospitalization (11) Full code status Code(s): Z78.9 - OTHER SPECIFIED HEALTH STATUS Comment: Status and Disposition: Inpatient. Anticipate d/c to [facility] when medically stable and cleared by Ortho and ID. Attending: Kam Beard
[2019-01-27] MEDS: ceFAZolin 1 GM ADVAN(*) 1 GM in NS 0.9% 50 ML* 50 ML IVPB SCH (15:36)
[2019-01-27 17:33] LABS: Hematocrit 21 % (42-52); Hemoglobin 6.9 g/dL (14.0-18.0); Mean Corpuscular HGB Conc 33 g/dL (31-36); Mean Corpuscular Hemoglobin 31 pg (27-31); Mean Corpuscular Volume 94 fL (80-94); Mean Platelet Volume 7.6 fL (7.4-10.4); Platelet Count 207 10^3/uL (150-450); Red Blood Count 2.24 10^6 /uL (4.18-5.48); Red Cell Distribution Width 15 % (10-15); White Blood Count 6.1 10^3/uL (3.5-10.8)
[2019-01-27 17:48] LABS: BUN/Creatinine Ratio 5.9 (8-20); Blood Urea Nitrogen 21 mg/dL (6-24); CO2 Carbon Dioxide 22 mmol/L (22-32); Chloride 104 mmol/L (101-111); EGFR African American 20.4 (>60); EGFR Non-African American 16.8 (>60); Glucose 132 mg/dL (70-100); Magnesium 1.5 mg/dL (1.9-2.7); Sodium 135 mmol/L (135-145)
[2019-01-27 18:04] LABS: Calcium 6.2 mg/dL (8.6-10.3)
[2019-01-27] MEDS ORDERED: Magnesium Sulfate IV* 3 GM in NS 0.9% 100 ML* 100 ML IVPB ONE (18:11)
[2019-01-27 18:15] LABS: ABS Basophils 0.1 10^3/ul (0-0.2); ABS Eosinophils 0.1 10^3/ul (0-0.6); ABS Lymphocytes 0.3 10^3/ul (1.0-4.8); ABS Monocytes 0.6 10^3/ul (0-0.8); ABS Neutrophils 5.1 10^3/ul (1.5-7.7); Anion Gap 9 mmol/L (2-11); Eosinophil % 1.8 %; Lymphocyte % 5.6 %
[2019-01-27] MEDS ORDERED: NS 0.9% 100 ML* 100 ML ONE (18:27)
[2019-01-27] MEDS: Mirtazapine TAB* 15 MG PO SCH (20:30)
[2019-01-28 06:21] LABS: BUN/Creatinine Ratio 5.8 (8-20); Calcium 7.9 mg/dL (8.6-10.3); EGFR African American 13.9 (>60); EGFR Non-African American 11.5 (>60); Magnesium 2.3 mg/dL (1.9-2.7); Potassium 4.4 mmol/L (3.5-5.0)
[2019-01-28] MEDS: LIDOCAINE TOPICAL SCH (07:40)
[2019-01-28] MEDS: PRILOCAINE TOPICAL SCH (07:40)
[2019-01-28] MEDS: Sevelamer TAB* 800 MG PO SCH ×3 (07:42→18:21)
--- NOTE | 2019-01-28 09:29 | PN ---
Progress Note - Progress Note Date of Service: 01/28/19 SOAP: Subjective: resting comfortably with no complaints Objective: Vital Signs Temp Pulse Resp BP Pulse Ox 97 F 67 14 111/49 98 01/28/19 08:00 01/28/19 08:00 01/28/19 08:00 01/28/19 08:00 01/28/19 08:00 Laboratory Last Values WBC 6.1 10^3/uL (3.5-10.8) 01/27/19 17:10 RBC 2.24 10^6 /uL (4.18-5.48) L 01/27/19 17:10 Hgb 6.9 g/dL (14.0-18.0) L 01/27/19 17:10 Hct 21 % (42-52) L 01/27/19 17:10 MCV 94 fL (80-94) 01/27/19 17:10 MCH 31 pg (27-31) 01/27/19 17:10 MCHC 33 g/dL (31-36) 01/27/19 17:10 RDW 15 % (10-15) 01/27/19 17:10 Plt Count 207 10^3/uL (150-450) 01/27/19 17:10 MPV 7.6 fL (7.4-10.4) 01/27/19 17:10 Neut % (Auto) 82.0 % 01/27/19 17:10 Lymph % (Auto) 5.6 % 01/27/19 17:10 [place] % (Auto) 9.3 % 01/27/19 17:10 Eos % (Auto) 1.8 % 01/27/19 17:10 Baso % (Auto) 1.3 % 01/27/19 17:10 Absolute Neuts (auto) 5.1 10^3/ul (1.5-7.7) 01/27/19 17:10 Absolute Lymphs (auto) 0.3 10^3/ul (1.0-4.8) L 01/27/19 17:10 Absolute Monos (auto) 0.6 10^3/ul (0-0.8) 01/27/19 17:10 Absolute Eos (auto) 0.1 10^3/ul (0-0.6) 01/27/19 17:10 Absolute Basos (auto) 0.1 10^3/ul (0-0.2) 01/27/19 17:10 Absolute Nucleated RBC 0.0 10^3/ul 01/27/19 17:10 Nucleated RBC % 0.0 01/27/19 17:10 INR (Anticoag Therapy) 3.41 (0.82-1.09) H 01/20/19 06:26 POC Activ Clotting Time 288 seconds 01/26/19 16:30 Sodium 132 mmol/L (135-145) L 01/28/19 05:39 Potassium 4.4 mmol/L (3.5-5.0) 01/28/19 05:39 Chloride 94 mmol/L (101-111) L 01/28/19 05:39 Carbon Dioxide 30 mmol/L (22-32) 01/28/19 05:39 Anion Gap 8 mmol/L (2-11) 01/28/19 05:39 BUN 29 mg/dL (6-24) H 01/28/19 05:39 Creatinine 4.97 mg/dL (0.67-1.17) H 01/28/19 05:39 1/Creatinine 0.17 01/03/19 08:24 Est GFR ( Amer) 13.9 (>60) 01/28/19 05:39 Est GFR (Non-Af Amer) 11.5 (>60) 01/28/19 05:39 BUN/Creatinine Ratio 5.8 (8-20) L 01/28/19 05:39 Glucose 118 mg/dL (70-100) H 01/28/19 05:39 POC Glucose (mg/dL) 142 mg/dL (70-100) H 01/22/19 11:31 Hemoglobin A1c 6.4 % (4.0-5.6) H 01/18/19 06:45 Serum Osmolality 287 mOsm/kg (275-295) 01/27/19 17:10 Lactic Acid 2.2 mmol/L (0.5-2.0) H* 12/29/18 14:16 Calcium 7.9 mg/dL (8.6-10.3) L 01/28/19 05:39 Ionized Calcium 1.05 mmol/L (1.16-1.32) L 01/28/19 05:39 Phosphorus 4.5 mg/dL (2.5-5.0) 01/23/19 05:55 Magnesium 2.3 mg/dL (1.9-2.7) 01/28/19 05:39 Total Bilirubin 0.40 mg/dL (0.2-1.0) 01/18/19 06:45 Direct Bilirubin 0.20 mg/dL (0.03-0.18) H 01/08/19 06:31 Indirect Bilirubin 0.4 mg/dL (0.3-1.0) 01/08/19 06:31 AST 18 U/L (13-39) 01/18/19 06:45 ALT < 3 U/L (7-52) L 01/18/19 06:45 Alkaline Phosphatase 99 U/L (34-104) 01/18/19 06:45 C-Reactive Protein 152.01 mg/L (<8.01) H 01/17/19 06:15 Total Protein 5.8 g/dL (6.4-8.9) L 01/18/19 06:45 Albumin 2.4 g/dL (3.2-5.2) L 01/18/19 06:45 Globulin 3.4 g/dL (2-4) 01/18/19 06:45 Albumin/Globulin Ratio 0.7 (1-3) L 01/18/19 06:45 Fluid Source Peritoneal 01/08/19 16:28 Fluid Volume 50.0 mL 01/08/19 16:28 Fluid Color Yellow 01/08/19 16:28 Fluid Appearance Clear 01/08/19 16:28 Fluid WBC 358 /mcL (0-545755) 01/08/19 16:28 Fluid RBC 313 /mcL 01/08/19 16:28 Fluid Tot Cell Count 100 01/08/19 16:28 Fluid Neutrophils 36 % 01/08/19 16:28 Fluid Band Neutrophils 1 % 01/08/19 16:28 Fluid Lymphocytes 4 % 01/08/19 16:28 Fluid Monocytes 58 % 01/08/19 16:28 Fluid Eosinophils 1 % 01/08/19 16:28 Fluid Other Cells 2 01/08/19 16:28 Fluid Cell Count Rvw By 01/08/19 16:28 Fluid Total Protein 4.1 g/dL 01/08/19 16:28 Fluid Comment 01/08/19 16:28 Random Vancomycin 6.3 mcg/mL 12/31/18 11:00 Anti-Nuclear Antibody 0.3 U 01/21/19 05:46 Mitochondria M2 Ab <0.1 U 01/21/19 05:46 Anti-Smooth Muscle Ab Negative (Negative) 01/21/19 05:46 Hepatitis B Antibody Not immune (Immune) A 12/31/18 11:00 Hep Bs Antigen Negative (Negative) 12/31/18 11:00 Hepatitis C Antibody Negative (Negative) 01/19/19 06:11 Hepatitis C Ab Index 0.03 s/c 01/19/19 06:11 Miscellaneous Test See comments 01/08/19 16:28 Blood Type O Positive 01/27/19 17:10 Antibody Screen Negative 01/27/19 17:10 Crossmatch See Detail 01/27/19 17:10 incision: wound vac changed. Assessment: left foot infection, s/p revascularization Plan: 1) NWB LLE 2) continue IV ABX 3) wound vac changed; will change again Thursday 4) Hospitalist co-managing
[2019-01-28] MEDS: Morphine INJ* 2 MG/ML 1 ML SYRINGE (TWO MG - NEW SYRINGE VERSION) IV PRN (09:55)
[2019-01-28] MEDS: HYDROcodone/ACETAMIN 5-325 MG* 1 TAB PO PRN ×2 (10:38→17:05)
[2019-01-28] MEDS: Aspirin 81 mg CHEW TAB* 81 MG TAB.CHEW PO SCH (10:39)
[2019-01-28] MEDS: Clopidogrel TAB* 75 MG PO SCH (10:39)
[2019-01-28] MEDS: Gemfibrozil TAB* 600 MG PO SCH ×2 (10:39→21:01)
[2019-01-28] MEDS: Atorvastatin* 80 MG TAB PO SCH (10:39)
[2019-01-28] MEDS: Pantoprazole TAB * 40 MG TAB PO SCH (10:40)
--- NOTE | 2019-01-28 11:02 | CONSULT ---
Identification - Patient Identification Reason for Psychiatric Consultation: Suicidal Ideation -: Patient is a 73 year old, M admitted on 12/29/18. - MHU Identification Employment Status: Employed Hx Psychiatric Hospitalization: No History - Objective HPI: Rickie is seen for psychiatric follow up in the dialysis room on where he presents as somatic and quite uncomfortable following the change of his wound vac this morning. "I'm gonna tell them never to do that again before this [dialysis] because I just can't do them both at the same time." He is irritable and not open to having a particularly emotive conversation at this time. Nonetheless, he continues to deny SI and does not seem to note any untoward effects from the mirtazapine as yet. He agrees to speak with me further sometime next week. Exam Appearance: Well Developed/Nourished Hygiene: Normal Grooming: Fairly Well Kept Psychomotor Activities: Abnormal-Decreased Exhibits Abnormal Movement: No Attitude and Relatedness: Irritable Eye Contact: Fair - Speech Quality: Unpressured Latencies: Normal Quantity: Terse Patient's Decription of Mood: "Terrible" Observed Affect: Constricted Affect Consistent with: Dysphoria Patient's Thought Process: Coherent Thought Content: No Passive Wish, No Suicidal Planning, No Homicidal Ideation, No Paranoid Ideation Experiencing Hallucinations: No, Sensorium is Clear Type of Hallucinations: Visual: No, Auditory: No, Command: No Level of Consciousness: Alert Orientation: Yes Intact, Yes Orientated to Time, Yes Orientated to Place, Yes Orientated to Person Impulse Control: Tenuous Insight and Judgement: Fair Impression - Impression Clinical Impression: 73 y.o. , employed, white male with prior psychiatric history but a complicated medical picture of diabetes, end-stage renal disease, CAD, peripheral vasculopathy admitted to the Medicine service due to pain and infection in his left foot. The patient is facing likely amputation of his lower left extremity and is overwhelmed and depressed. Inpatient DSM-V Dx: F32.2 Merits Inpatient Hospitalization: No BSU: Problem List - Patient Problems (1) MDD (major depressive disorder), single episode, severe Current Visit: Yes Status: Acute Code(s): F32.2 - MAJOR DEPRESSV DISORD, SINGLE EPSD, SEV W/O PSYCH FEATURES SNOMED Code(s): 045399947668 Plan - Treatment Plan Treatment Plan: With his consent I have started a trial of mirtazapine 7.5mg PO qhs, which should be safe for his kidney function. We will monitor his progress and this clinician will likely f/u with him on January 31. Continued Medication Management: Start Medication Medications: Current Medications Acetaminophen (Tylenol Tab*) 650 mg PO Q4H PRN PRN Reason: FEVER/PAIN Last Admin: 01/10/19 07:31 Dose: 650 mg Hydrocodone Bitart/Acetaminophen ([place] 5-325 Tab*) 2 tab PO Q4H PRN PRN Reason: PAIN Last Admin: 01/28/19 10:38 Dose: 2 tab Aspirin (Aspirin 81 Mg Chew Tab*) 81 mg PO DAILY [facility] Last Admin: 01/28/19 10:39 Dose: Not Given Atorvastatin Calcium (Lipitor*) 80 mg PO QAM [facility] Last Admin: 01/28/19 10:39 Dose: Not Given Calcium Carbonate (Tums*) 500 mg PO Q4H PRN PRN Reason: INDIGESTION Last Admin: 12/30/18 14:18 Dose: 500 mg Clopidogrel Bisulfate (Plavix Tab*) 37.5 mg PO DAILY [facility] Stop: 04/26/19 18:59 Last Admin: 01/28/19 10:39 Dose: Not Given Gemfibrozil (Lopid Tab*) 600 mg PO BID [facility] Last Admin: 01/28/19 10:39 Dose: Not Given Cefazolin Sodium 1 gm/ Sodium (Chloride) 50 mls @ 200 mls/hr IVPB Q24H [facility] Last Admin: 01/27/19 15:36 Dose: 200 mls/hr Lidocaine/Prilocaine (Emla*) 1 applic TOPICAL MoWeFr [facility] Last Admin: 01/28/19 07:40 Dose: 1 applic Magnesium Hydroxide (Milk Of Magnesia Liq*) 30 ml PO BID PRN PRN Reason: CONSTIPATION Melatonin (Melatonin) 3 mg PO BEDTIME PRN PRN Reason: SLEEP Last Admin: 01/26/19 21:46 Dose: 3 mg Mirtazapine (Remeron Tab*) 7.5 mg PO BEDTIME [facility] Last Admin: 01/27/19 20:30 Dose: 7.5 mg Morphine Sulfate (Morphine Inj (Syringe))*) 2 mg IV Q6H PRN PRN Reason: PAIN Last Admin: 01/28/19 09:55 Dose: 2 mg Ondansetron HCl (Zofran Odt Tab*) 4 mg SL Q6H PRN PRN Reason: NAUSEA/VOMITING Last Admin: 01/21/19 09:49 Dose: 4 mg Pantoprazole Sodium (Protonix Tab*) 40 mg PO DAILY [facility] Last Admin: 01/28/19 10:40 Dose: Not Given Polyethylene Glycol/Electrolytes (Miralax*) 17 gm PO DAILY PRN PRN Reason: CONSTIPATION Senna (Senokot Tab*) 1 tab PO BEDTIME PRN PRN Reason: CONSTIPATION Last Admin: 01/17/19 09:25 Dose: 1 tab Sevelamer Carbonate (Renvela Tab*) 1,600 mg PO 0845,1245,1745 [facility] Last Admin: 01/28/19 07:42 Dose: 1,600 mg
[2019-01-28] MEDS ORDERED: Heparin DIALYSIS ONLY(*) 1,000 UNITS/ML VIAL DIALYSIS ONE (14:00)
[2019-01-28] MEDS: ceFAZolin 1 GM ADVAN(*) 1 GM in NS 0.9% 50 ML* 50 ML IVPB SCH (14:33)
--- NOTE | 2019-01-28 16:21 | PN ---
Subjective Date of Service: 01/28/19 Interval History: Mr. El is feeling okay this morning. He is quite tired. Reports that his fistula site was oozing blood overnight, but he is unsure how much or how long. Denies CP, SOB, N/V. No concerns from nursing. Family History: Unchanged from Admission Social History: Unchanged from Admission Past Medical History: Unchanged from Admission Objective Active Medications: Acetaminophen (Tylenol Tab*) 650 mg PO Q4H PRN FEVER/PAIN Hydrocodone Bitart/Acetaminophen ([place] 5-325 Tab*) 2 tab PO Q4H PRN PAIN Aspirin (Aspirin 81 Mg Chew Tab*) 81 mg PO DAILY [facility] Atorvastatin Calcium (Lipitor*) 80 mg PO QAM GER[facility] Calcium Carbonate (Tums*) 500 mg PO Q4H PRN INDIGESTION Clopidogrel Bisulfate (Plavix Tab*) 37.5 mg PO DAILY [facility] Gemfibrozil (Lopid Tab*) 600 mg PO BID [facility] Cefazolin Sodium 1 gm/ Sodium (Chloride) 50 mls @ 200 mls/hr IVPB Q24H [facility] Lidocaine/Prilocaine (Emla*) 1 applic TOPICAL MoWeFr [facility] Magnesium Hydroxide (Milk Of Magnesia Liq*) 30 ml PO BID PRN CONSTIPATION Melatonin (Melatonin) 3 mg PO BEDTIME PRN SLEEP Mirtazapine (Remeron Tab*) 7.5 mg PO BEDTIME [facility] Morphine Sulfate (Morphine Inj (Syringe))*) 2 mg IV Q6H PRN PAIN Ondansetron HCl (Zofran Odt Tab*) 4 mg SL Q6H PRN NAUSEA/VOMITING Pantoprazole Sodium (Protonix Tab*) 40 mg PO DAILY [facility] Polyethylene Glycol/Electrolytes (Miralax*) 17 gm PO DAILY PRN CONSTIPATION Senna (Senokot Tab*) 1 tab PO BEDTIME PRN CONSTIPATION Sevelamer Carbonate (Renvela Tab*) 1,600 mg PO 0845,1245,1745 [facility] Vital Signs - 8 hr 01/28/19 01/28/19 01/28/19 09:55 10:15 10:30 Temperature 98.8 F 99.1 F Pulse Rate 66 73 Respiratory 18 18 18 Rate Blood Pressure 119/54 99/43 (mmHg) O2 Sat by Pulse Oximetry 01/28/19 01/28/19 01/28/19 10:38 12:00 13:37 Temperature 97.1 F Pulse Rate 70 Respiratory 18 18 Rate Blood Pressure 122/50 (mmHg) O2 Sat by Pulse 98 Oximetry 01/28/19 01/28/19 14:02 16:12 Temperature 97.6 F Pulse Rate 73 Respiratory 18 18 Rate Blood Pressure 104/58 (mmHg) O2 Sat by Pulse 100 Oximetry Oxygen Devices in Use Now: Nasal Cannula - 2L Appearance: Elderly male laying in bed in NAD Eyes: No Scleral Icterus Ears/Nose/Mouth/Throat: Mucous Membranes Moist Neck: NL Appearance and Movements; NL JVP, Trachea Midline Respiratory: Symmetrical Chest Expansion and Respiratory Effort, Clear to Auscultation Cardiovascular: NL Sounds; No Murmurs; No JVD, RRR Abdominal: NL Sounds; No Tenderness; No Distention Neurological: - - Oriented to self and place Lines/Tubes/Other Access: Clean, Dry and Intact Peripheral IV Nutrition: Taking PO's Result Diagrams: 01/27/19 17:10 01/28/19 05:39 Assess/Plan/Problems-Billing Assessment: Mr El is a 73 M with PMH of DM2 now controlled with diet, ESRD on HD, CAD, 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 Also with osteo of 5th metatarsal, now s /p L foot I&D and excision of 5th metatarsal base on 01/06. PCR in OR positive for Staph aureus without growth. S/p debridement of L lateral mid-foot with ostectomy, partial cuboid resection, I&D and vac (01/11 + 01/20). - Patient Problems (1) Subacute osteomyelitis, left ankle and foot Code(s): M86.272 - SUBACUTE OSTEOMYELITIS, LEFT ANKLE AND FOOT Comment: - Wound culture grew MSSA - Blood cultures negative - NWB LLE - Wound vac changed due to be changed tomorrow by Ortho - Pain control for dressing changes and procedures - Continue cefazolin per ID (day -) (2) PAD (peripheral artery disease) Code(s): I73.9 - PERIPHERAL VASCULAR DISEASE, UNSPECIFIED Comment: - S/p LLE revascularization 12/27/[address] 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; less likely cirrhosis given low SAAG - Possibility of taking off more fluid during HD, although patient frequently hypotensive during HD (4) ESRD (end stage renal disease) Code(s): N18.6 - END STAGE RENAL DISEASE Comment: - Normally MWF dialysis - Dr. Martínez concerned regarding poor output with AV fisutla at dialysis , ordered doppler of AV fistula which has sufficient flow for now but she recommends fistulogram in the next few days - Continue sevelamer (5) Hyponatremia Code(s): E87.1 - HYPO-OSMOLALITY AND HYPONATREMIA Comment: - Appears chronic and remains stable - Does not appear to have been worked up in the past - Pending urine osm, serum osm, urine Na (6) Passive suicidal ideations Code(s): R45.851 - SUICIDAL IDEATIONS Comment: - Reports from - Patient denies suicidal ideation but reports he has been feeling overwhelmed; he and his state he has been feeling this way for 6 months - Dr. Henriquez evaluated patient and given hyponatremia and ESRD recommends mirtazapine - Continue mirtazapine (7) Coronary artery disease Code(s): I25.10 - ATHSCL HEART DISEASE OF [place] CORONARY ARTERY W/O ANG PCTRS Comment: - Continue aspirin, atorvastatin, gemfibrozil (8) Anemia Code(s): D64.9 - ANEMIA, UNSPECIFIED Comment: - Stable, normocytic anemia - Suspect anemia of chronic disease and CKD - Continue Epoetin Alpha per Nephrology (9) Type 2 diabetes mellitus Comment: - A1c 6.4% - No fingersticks given good BG control during this hospitalization (10) DVT prophylaxis Comment: - SCDs - Persistent bleeding from foot when on medical DVT ppx; ongoing risk of oozing causing wound vac to fail outweighs risk of DVT at this time, as continued bleeding will prolong hospitalization (11) Full code status Code(s): Z78.9 - OTHER SPECIFIED HEALTH STATUS Comment: Status and Disposition: Inpatient. Anticipate d/c to [facility] when medically stable and cleared by Ortho and ID. Attending: Alex Mendez
--- NOTE | 2019-01-28 18:55 | PN ---
DIALYSIS NOTE: DATE OF DIALYSIS: 01/27/19 REPORT: The patient tolerated his hemodialysis session well, was dialyzed for 3- 1/2 hours. HD orde rs discussed with the dialysis nurse. The patient is status post arteriogram, revascularization of o ccluded left GLUE MAKER, balloon angioplasty of left SFA, tibioperoneal trunk and left GLUE MAKER. Was dialyzed af ter his procedure. The patient is currently on Plavix. [id number]/[facility] #: [id number]
--- NOTE | 2019-01-28 19:29 | PN ---
DIALYSIS NOTE: DATE OF VISIT: 01/28/19 SUBJECTIVE: The patient was seen and examined during dialysis. The patient noted to have minimal oozing from the AVF site prior to starting dialysis. It appears that the patient also had slow ooze on 01/26/19 from the lower extremity groin site and a [id number] suture was placed. The patient tolerated his dialysis procedure well. Heparin or other anticoagulants were not used and the patient did not have further bleeding after the procedure. However, the patient has only been able to obtain blood flow of 300 to 350 mL per hour, even though the duplex and ultrasound of the fistula looked good and this has been noted over the last few treatments. PHYSICAL EXAMINATION: HEENT: NCAT. Heart: S1, S2 present. Regular at the time of exam. Lungs: Decreased breath sounds bilaterally. Abdomen: Moderate ascites. Extremities: Noted to have some edema. Dressing in place. ASSESSMENT AND PLAN: Please see above. 1. Anemia. The patient was transfused 1 unit of blood during dialysis. HD orders were discussed with the dialysis nurse. No fluid was taken off except to take off volume for the 400 cc given in blood products. 2. The bleeding from the AV fistula site has stopped and the patient tolerated his dialysis procedure well today. However, in light of poor blood flows that are being obtained from the access and prolonged bleeding. We will get a fistulogram to evaluate the access and evaluate for any venous outflow stenosis or other problems. The patient is also on Plavix and we will watch for any bleeding closely. 3. Case also discussed with his primary medical team.If ongoing bleeding from multiple sites, consider systemic problems and evaluate for bleeding/ coagulation disorders and eval DIC panel. [id number]/[facility] #: [id number] [facility]
[2019-01-28] MEDS: Mirtazapine TAB* 15 MG PO SCH (21:01)
[2019-01-29 06:49] LABS: ABS Basophils 0.1 10^3/ul (0-0.2); ABS Eosinophils 0.3 10^3/ul (0-0.6); ABS Lymphocytes 0.7 10^3/ul (1.0-4.8); ABS Monocytes 0.7 10^3/ul (0-0.8); ABS Neutrophils 5.1 10^3/ul (1.5-7.7); Hematocrit 29 % (42-52); Hemoglobin 9.6 g/dL (14.0-18.0); Mean Corpuscular HGB Conc 33 g/dL (31-36); Mean Corpuscular Hemoglobin 30 pg (27-31); Mean Corpuscular Volume 92 fL (80-94); Mean Platelet Volume 7.2 fL (7.4-10.4); Platelet Count 236 10^3/uL (150-450); Red Blood Count 3.16 10^6 /uL (4.18-5.48); Red Cell Distribution Width 15 % (10-15); White Blood Count 6.8 10^3/uL (3.5-10.8)
[2019-01-29 06:57] LABS: Calcium 7.8 mg/dL (8.6-10.3); EGFR Non-African American 13.2 (>60); Potassium 4.5 mmol/L (3.5-5.0)
[2019-01-29] MEDS: Sevelamer TAB* 800 MG PO SCH ×3 (08:34→17:07)
[2019-01-29] MEDS: Aspirin 81 mg CHEW TAB* 81 MG TAB.CHEW PO SCH (08:35)
[2019-01-29] MEDS: Clopidogrel TAB* 75 MG PO SCH (08:35)
[2019-01-29] MEDS: Gemfibrozil TAB* 600 MG PO SCH ×2 (08:35→20:24)
[2019-01-29] MEDS: Atorvastatin* 80 MG TAB PO SCH (08:35)
[2019-01-29] MEDS: Pantoprazole TAB * 40 MG TAB PO SCH (08:35)
[2019-01-29] MEDS: HYDROcodone/ACETAMIN 5-325 MG* 1 TAB PO PRN (08:41)
--- NOTE | 2019-01-29 08:56 | PN ---
Progress Note - Progress Note Date of Service: 01/29/19 SOAP: Subjective: in bed resting, no complaints of calf pain/ SOB/CP Objective: Vital Signs Temp Pulse Resp BP Pulse Ox 98.2 F 67 18 117/60 100 01/29/19 07:00 01/29/19 07:00 01/29/19 08:45 01/29/19 07:00 01/29/19 07:00 Laboratory Last Values WBC 6.8 10^3/uL (3.5-10.8) 01/29/19 06:19 RBC 3.16 10^6 /uL (4.18-5.48) L 01/29/19 06:19 Hgb 9.6 g/dL (14.0-18.0) L 01/29/19 06:19 Hct 29 % (42-52) L 01/29/19 06:19 MCV 92 fL (80-94) 01/29/19 06:19 MCH 30 pg (27-31) 01/29/19 06:19 MCHC 33 g/dL (31-36) 01/29/19 06:19 RDW 15 % (10-15) 01/29/19 06:19 Plt Count 236 10^3/uL (150-450) 01/29/19 06:19 MPV 7.2 fL (7.4-10.4) L 01/29/19 06:19 Neut % (Auto) 74.7 % 01/29/19 06:19 Lymph % (Auto) 10.0 % 01/29/19 06:19 [place] % (Auto) 10.1 % 01/29/19 06:19 Eos % (Auto) 4.0 % 01/29/19 06:19 Baso % (Auto) 1.2 % 01/29/19 06:19 Absolute Neuts (auto) 5.1 10^3/ul (1.5-7.7) 01/29/19 06:19 Absolute Lymphs (auto) 0.7 10^3/ul (1.0-4.8) L 01/29/19 06:19 Absolute Monos (auto) 0.7 10^3/ul (0-0.8) 01/29/19 06:19 Absolute Eos (auto) 0.3 10^3/ul (0-0.6) 01/29/19 06:19 Absolute Basos (auto) 0.1 10^3/ul (0-0.2) 01/29/19 06:19 Absolute Nucleated RBC 0.0 10^3/ul 01/29/19 06:19 Nucleated RBC % 0.0 01/29/19 06:19 INR (Anticoag Therapy) 3.41 (0.82-1.09) H 01/20/19 06:26 POC Activ Clotting Time 288 seconds 01/26/19 16:30 Sodium 134 mmol/L (135-145) L 01/29/19 06:19 Potassium 4.5 mmol/L (3.5-5.0) 01/29/19 06:19 Chloride 96 mmol/L (101-111) L 01/29/19 06:19 Carbon Dioxide 34 mmol/L (22-32) H 01/29/19 06:19 Anion Gap 4 mmol/L (2-11) 01/29/19 06:19 BUN 22 mg/dL (6-24) 01/29/19 06:19 Creatinine 4.40 mg/dL (0.67-1.17) H 01/29/19 06:19 1/Creatinine 0.17 01/03/19 08:24 Est GFR ( Amer) 16.0 (>60) 01/29/19 06:19 Est GFR (Non-Af Amer) 13.2 (>60) 01/29/19 06:19 BUN/Creatinine Ratio 5.0 (8-20) L 01/29/19 06:19 Glucose 131 mg/dL (70-100) H 01/29/19 06:19 POC Glucose (mg/dL) 142 mg/dL (70-100) H 01/22/19 11:31 Hemoglobin A1c 6.4 % (4.0-5.6) H 01/18/19 06:45 Serum Osmolality 287 mOsm/kg (275-295) 01/27/19 17:10 Lactic Acid 2.2 mmol/L (0.5-2.0) H* 12/29/18 14:16 Calcium 7.8 mg/dL (8.6-10.3) L 01/29/19 06:19 Ionized Calcium 1.05 mmol/L (1.16-1.32) L 01/28/19 05:39 Phosphorus 4.5 mg/dL (2.5-5.0) 01/23/19 05:55 Magnesium 2.3 mg/dL (1.9-2.7) 01/28/19 05:39 Total Bilirubin 0.40 mg/dL (0.2-1.0) 01/18/19 06:45 Direct Bilirubin 0.20 mg/dL (0.03-0.18) H 01/08/19 06:31 Indirect Bilirubin 0.4 mg/dL (0.3-1.0) 01/08/19 06:31 AST 18 U/L (13-39) 01/18/19 06:45 ALT < 3 U/L (7-52) L 01/18/19 06:45 Alkaline Phosphatase 99 U/L (34-104) 01/18/19 06:45 C-Reactive Protein 152.01 mg/L (<8.01) H 01/17/19 06:15 Total Protein 5.8 g/dL (6.4-8.9) L 01/18/19 06:45 Albumin 2.4 g/dL (3.2-5.2) L 01/18/19 06:45 Globulin 3.4 g/dL (2-4) 01/18/19 06:45 Albumin/Globulin Ratio 0.7 (1-3) L 01/18/19 06:45 Fluid Source Peritoneal 01/08/19 16:28 Fluid Volume 50.0 mL 01/08/19 16:28 Fluid Color Yellow 01/08/19 16:28 Fluid Appearance Clear 01/08/19 16:28 Fluid WBC 358 /mcL ([id number]) 01/08/19 16:28 Fluid RBC 313 /mcL 01/08/19 16:28 Fluid Tot Cell Count 100 01/08/19 16:28 Fluid Neutrophils 36 % 01/08/19 16:28 Fluid Band Neutrophils 1 % 01/08/19 16:28 Fluid Lymphocytes 4 % 01/08/19 16:28 Fluid Monocytes 58 % 01/08/19 16:28 Fluid Eosinophils 1 % 01/08/19 16:28 Fluid Other Cells 2 01/08/19 16:28 Fluid Cell Count Rvw By 01/08/19 16:28 Fluid Total Protein 4.1 g/dL 01/08/19 16:28 Fluid Comment 01/08/19 16:28 Random Vancomycin 6.3 mcg/mL 12/31/18 11:00 Anti-Nuclear Antibody 0.3 U 01/21/19 05:46 Mitochondria M2 Ab <0.1 U 01/21/19 05:46 Anti-Smooth Muscle Ab Negative (Negative) 01/21/19 05:46 Hepatitis B Antibody Not immune (Immune) A 12/31/18 11:00 Hep Bs Antigen Negative (Negative) 12/31/18 11:00 Hepatitis C Antibody Negative (Negative) 01/19/19 06:11 Hepatitis C Ab Index 0.03 s/c 01/19/19 06:11 Miscellaneous Test See comments 01/08/19 16:28 Blood Type O Positive 01/27/19 17:10 Antibody Screen Negative 01/27/19 17:10 Crossmatch See Detail 01/27/19 17:10 LLE: new wound vac placed yesterday, intact with minimal drainage in canister Assessment: LLE infection/ulcer; s/p revascularization on 01/26 Plan: 1) continue current DVT prophylaxis 2) continue IV Abx 3) wound vac will be changed again Thursday 4) will watch LLE wound closely, want to give it time to heal since revascularization on 01/26 was successful.
--- NOTE | 2019-01-29 13:02 | PN ---
Subjective Date of Service: 01/29/19 Interval History: Mr. El is feeling well this morning. He is tired, but offers no other complaints. Slept well. No further bleeding from fistula. Left foot was painful earlier this morning, not resolved. Denies CP, SOB, N/V. No concerns from nursing. Family History: Unchanged from Admission Social History: Unchanged from Admission Past Medical History: Unchanged from Admission Objective Active Medications: Acetaminophen (Tylenol Tab*) 650 mg PO Q4H PRN FEVER/PAIN Hydrocodone Bitart/Acetaminophen ([place] 5-325 Tab*) 2 tab PO Q4H PRN PAIN Aspirin (Aspirin 81 Mg Chew Tab*) 81 mg PO DAILY [facility] Atorvastatin Calcium (Lipitor*) 80 mg PO QAM GER[facility] Calcium Carbonate (Tums*) 500 mg PO Q4H PRN INDIGESTION Clopidogrel Bisulfate (Plavix Tab*) 37.5 mg PO DAILY [facility] Gemfibrozil (Lopid Tab*) 600 mg PO BID [facility] Cefazolin Sodium 1 gm/ Sodium (Chloride) 50 mls @ 200 mls/hr IVPB Q24H [facility] Lidocaine/Prilocaine (Emla*) 1 applic TOPICAL MoWeFr [facility] Magnesium Hydroxide (Milk Of Magnesia Liq*) 30 ml PO BID PRN CONSTIPATION Melatonin (Melatonin) 3 mg PO BEDTIME PRN SLEEP Mirtazapine (Remeron Tab*) 7.5 mg PO BEDTIME [facility] Morphine Sulfate (Morphine Inj (Syringe))*) 2 mg IV Q6H PRN PAIN Ondansetron HCl (Zofran Odt Tab*) 4 mg SL Q6H PRN NAUSEA/VOMITING Pantoprazole Sodium (Protonix Tab*) 40 mg PO DAILY [facility] Polyethylene Glycol/Electrolytes (Miralax*) 17 gm PO DAILY PRN CONSTIPATION Senna (Senokot Tab*) 1 tab PO BEDTIME PRN CONSTIPATION Sevelamer Carbonate (Renvela Tab*) 1,600 mg PO 0845,1245,1745 [facility] Vital Signs - 8 hr 01/29/19 01/29/19 01/29/19 07:00 08:41 08:45 Temperature 98.2 F Pulse Rate 67 Respiratory 18 18 18 Rate Blood Pressure 117/60 (mmHg) O2 Sat by Pulse 100 Oximetry 01/29/19 01/29/19 10:43 12:11 Temperature 98.3 F Pulse Rate 64 Respiratory 16 18 Rate Blood Pressure 110/66 (mmHg) O2 Sat by Pulse 93 Oximetry Oxygen Devices in Use Now: Nasal Cannula - 2L Appearance: Elderly male laying in bed in NAD Eyes: No Scleral Icterus Ears/Nose/Mouth/Throat: Mucous Membranes Moist Neck: NL Appearance and Movements; NL JVP, Trachea Midline Respiratory: Symmetrical Chest Expansion and Respiratory Effort, Clear to Auscultation Cardiovascular: NL Sounds; No Murmurs; No JVD, RRR Abdominal: NL Sounds; No Tenderness; No Distention Neurological: - - Oriented to self and place Lines/Tubes/Other Access: Clean, Dry and Intact Peripheral IV Nutrition: Taking PO's Result Diagrams: 01/29/19 06:19 01/29/19 06:19 Assess/Plan/Problems-Billing Assessment: Mr El is a 73 M with PMH of DM2 now controlled with diet, ESRD on HD, CAD, 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 Also with osteo of 5th metatarsal, now s /p L foot I&D and excision of 5th metatarsal base on 01/06. PCR in OR positive for Staph aureus without growth. S/p debridement of L lateral mid-foot with ostectomy, partial cuboid resection, I&D and vac (01/11 + 01/20). - Patient Problems (1) Subacute osteomyelitis, left ankle and foot Code(s): M86.272 - SUBACUTE OSTEOMYELITIS, LEFT ANKLE AND FOOT Comment: - Wound culture grew MSSA - Blood cultures negative - NWB LLE - Wound vac changed due to be changed tomorrow by Ortho - Pain control for dressing changes and procedures - Continue cefazolin per ID (day -) (2) PAD (peripheral artery disease) Code(s): I73.9 - PERIPHERAL VASCULAR DISEASE, UNSPECIFIED Comment: - S/p LLE revascularization 12/27/[address] 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; less likely cirrhosis given low SAAG - Possibility of taking off more fluid during HD, although patient frequently hypotensive during HD (4) ESRD (end stage renal disease) Code(s): N18.6 - END STAGE RENAL DISEASE Comment: - Normally MWF dialysis - Plan for fistulogram on Thursday - Continue sevelamer (5) Hyponatremia Code(s): E87.1 - HYPO-OSMOLALITY AND HYPONATREMIA Comment: - Appears chronic and remains stable - Does not appear to have been worked up in the past, but unable to obtain urine thus far (6) Passive suicidal ideations Code(s): R45.851 - SUICIDAL IDEATIONS Comment: - Reports from - Patient denies suicidal ideation but reports he has been feeling overwhelmed; he and his state he has been feeling this way for 6 months - Dr. Henriquez evaluated patient and given hyponatremia and ESRD recommends mirtazapine - Continue mirtazapine (7) Coronary artery disease Code(s): I25.10 - ATHSCL HEART DISEASE OF [place] CORONARY ARTERY W/O ANG PCTRS Comment: - Continue aspirin, atorvastatin, gemfibrozil (8) Anemia Code(s): D64.9 - ANEMIA, UNSPECIFIED Comment: - Stable, normocytic anemia - Suspect anemia of chronic disease and CKD - Continue Epoetin Alpha per Nephrology (9) Type 2 diabetes mellitus Comment: - A1c 6.4% - No fingersticks given good BG control during this hospitalization (10) DVT prophylaxis Comment: - SCDs - Persistent bleeding from foot when on medical DVT ppx; ongoing risk of oozing causing wound vac to fail outweighs risk of DVT at this time, as continued bleeding will prolong hospitalization (11) Full code status Code(s): Z78.9 - OTHER SPECIFIED HEALTH STATUS Comment: Status and Disposition: Inpatient. Anticipate d/c to [facility] when medically stable and cleared by Ortho, ID , and Nephrology. Attending: Kam Beard
[2019-01-29] MEDS: ceFAZolin 1 GM ADVAN(*) 1 GM in NS 0.9% 50 ML* 50 ML IVPB SCH (13:06)
[2019-01-29] MEDS: Mirtazapine TAB* 15 MG PO SCH (20:24)
[2019-01-30 08:10] LABS: ABS Basophils 0.1 10^3/ul (0-0.2); ABS Eosinophils 0.3 10^3/ul (0-0.6); ABS Lymphocytes 0.7 10^3/ul (1.0-4.8); ABS Monocytes 0.6 10^3/ul (0-0.8); ABS Neutrophils 4.8 10^3/ul (1.5-7.7); Eosinophil % 4.4 %; Hematocrit 31 % (42-52); Lymphocyte % 10.9 %; Mean Corpuscular HGB Conc 32 g/dL (31-36); Mean Corpuscular Hemoglobin 30 pg (27-31); Mean Corpuscular Volume 92 fL (80-94); Mean Platelet Volume 6.9 fL (7.4-10.4); Platelet Count 238 10^3/uL (150-450); Red Blood Count 3.39 10^6 /uL (4.18-5.48); Red Cell Distribution Width 15 % (10-15); White Blood Count 6.5 10^3/uL (3.5-10.8)
[2019-01-30 08:17] LABS: BUN/Creatinine Ratio 5.4 (8-20); Calcium 7.8 mg/dL (8.6-10.3); EGFR African American 12.7 (>60); EGFR Non-African American 10.5 (>60); Potassium 4.9 mmol/L (3.5-5.0)
[2019-01-30] MEDS: Ondansetron ODT TAB* 4 MG SL PRN (09:11)
[2019-01-30] MEDS: Gemfibrozil TAB* 600 MG PO SCH ×2 (09:11→20:50)
[2019-01-30] MEDS: Aspirin 81 mg CHEW TAB* 81 MG TAB.CHEW PO SCH (09:11)
[2019-01-30] MEDS: Clopidogrel TAB* 75 MG PO SCH (09:11)
[2019-01-30] MEDS: Atorvastatin* 80 MG TAB PO SCH (09:11)
[2019-01-30] MEDS: Pantoprazole TAB * 40 MG TAB PO SCH (09:11)
[2019-01-30] MEDS: Sevelamer TAB* 800 MG PO SCH ×3 (09:23→17:32)
--- NOTE | 2019-01-30 13:43 | PN ---
Subjective Date of Service: 01/30/19 Interval History: Mr. El is feeling "about 50%" today. He feels "half depressed" but is unable to further elaborate. Physically, he has no complaints. Denies CP, SOB, N/V. No foot pain. No concerns from nursing. Family History: Unchanged from Admission Social History: Unchanged from Admission Past Medical History: Unchanged from Admission Objective Active Medications: Acetaminophen (Tylenol Tab*) 650 mg PO Q4H PRN FEVER/PAIN Hydrocodone Bitart/Acetaminophen ([place] 5-325 Tab*) 2 tab PO Q4H PRN PAIN Aspirin (Aspirin 81 Mg Chew Tab*) 81 mg PO DAILY [facility] Atorvastatin Calcium (Lipitor*) 80 mg PO QAM [facility] Calcium Carbonate (Tums*) 500 mg PO Q4H PRN INDIGESTION Clopidogrel Bisulfate (Plavix Tab*) 37.5 mg PO DAILY [facility] Gemfibrozil (Lopid Tab*) 600 mg PO BID [facility] Cefazolin Sodium 1 gm/ Sodium (Chloride) 50 mls @ 200 mls/hr IVPB Q24H [facility] Lidocaine/Prilocaine (Emla*) 1 applic TOPICAL MoWeFr [facility] Magnesium Hydroxide (Milk Of Magnesia Liq*) 30 ml PO BID PRN CONSTIPATION Melatonin (Melatonin) 3 mg PO BEDTIME PRN SLEEP Mirtazapine (Remeron Tab*) 7.5 mg PO BEDTIME [facility] Morphine Sulfate (Morphine Inj (Syringe))*) 2 mg IV Q6H PRN PAIN Ondansetron HCl (Zofran Odt Tab*) 4 mg SL Q6H PRN NAUSEA/VOMITING Pantoprazole Sodium (Protonix Tab*) 40 mg PO DAILY [facility] Polyethylene Glycol/Electrolytes (Miralax*) 17 gm PO DAILY PRN CONSTIPATION Senna (Senokot Tab*) 1 tab PO BEDTIME PRN CONSTIPATION Sevelamer Carbonate (Renvela Tab*) 1,600 mg PO 0845,1245,1745 [facility] Vital Signs - 8 hr 01/30/19 01/30/19 01/30/19 08:00 09:00 11:31 Temperature 97.7 F 96.5 F Pulse Rate 63 65 Respiratory 18 20 18 Rate Blood Pressure 108/44 98/45 (mmHg) O2 Sat by Pulse 100 100 Oximetry Oxygen Devices in Use Now: None Appearance: Elderly male laying in bed in NAD Eyes: No Scleral Icterus Ears/Nose/Mouth/Throat: Mucous Membranes Moist Neck: NL Appearance and Movements; NL JVP, Trachea Midline Respiratory: Symmetrical Chest Expansion and Respiratory Effort, Clear to Auscultation Cardiovascular: NL Sounds; No Murmurs; No JVD, RRR Abdominal: NL Sounds; No Tenderness; No Distention Skin: - - Wound vac in place to left foot Neurological: - - Oriented to self and place Lines/Tubes/Other Access: Clean, Dry and Intact Peripheral IV Nutrition: Taking PO's Result Diagrams: 01/30/19 07:46 01/30/19 07:46 Assess/Plan/Problems-Billing Assessment: Mr El is a 73 M with PMH of DM2 now controlled with diet, ESRD on HD, CAD, 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 Also with osteo of 5th metatarsal, now s /p L foot I&D and excision of 5th metatarsal base on 01/06. PCR in OR positive for Staph aureus without growth. S/p debridement of L lateral mid-foot with ostectomy, partial cuboid resection, I&D and vac (01/11 + 01/20). - Patient Problems (1) Subacute osteomyelitis, left ankle and foot Code(s): M86.272 - SUBACUTE OSTEOMYELITIS, LEFT ANKLE AND FOOT Comment: - Wound culture grew MSSA - Blood cultures negative - NWB LLE - Wound vac changed due to be changed Thursday by Ortho - Pain control for dressing changes and procedures - Continue cefazolin per ID (day -) (2) PAD (peripheral artery disease) Code(s): I73.9 - PERIPHERAL VASCULAR DISEASE, UNSPECIFIED Comment: - S/p LLE revascularization 12/27/[address] 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; less likely cirrhosis given low SAAG - Possibility of taking off more fluid during HD, although patient frequently hypotensive during HD (4) ESRD (end stage renal disease) Code(s): N18.6 - END STAGE RENAL DISEASE Comment: - Normally MWF dialysis - Plan for fistulogram on Thursday - Continue sevelamer (5) Hyponatremia Code(s): E87.1 - HYPO-OSMOLALITY AND HYPONATREMIA Comment: - Appears chronic and remains stable - Does not appear to have been worked up in the past, but unable to obtain urine thus far (6) Passive suicidal ideations Code(s): R45.851 - SUICIDAL IDEATIONS Comment: - Reports from - Patient denies suicidal ideation but reports he has been feeling overwhelmed; he and his state he has been feeling this way for 6 months - Dr. Henriquez evaluated patient and given hyponatremia and ESRD recommends mirtazapine - Continue mirtazapine (7) Coronary artery disease Code(s): I25.10 - ATHSCL HEART DISEASE OF [place] CORONARY ARTERY W/O ANG PCTRS Comment: - Continue aspirin, atorvastatin, gemfibrozil (8) Anemia Code(s): D64.9 - ANEMIA, UNSPECIFIED Comment: - Stable, normocytic anemia - Suspect anemia of chronic disease and CKD - Continue Epoetin Alpha per Nephrology (9) Type 2 diabetes mellitus Comment: - A1c 6.4% - No fingersticks given good BG control during this hospitalization (10) DVT prophylaxis Comment: - SCDs - Persistent bleeding from foot when on medical DVT ppx; ongoing risk of oozing causing wound vac to fail outweighs risk of DVT at this time, as continued bleeding will prolong hospitalization (11) Full code status Code(s): Z78.9 - OTHER SPECIFIED HEALTH STATUS Comment: Status and Disposition: Inpatient. Anticipate d/c to [facility] when medically stable and cleared by Ortho, ID , and Nephrology. Attending: Yvonne Ngo
[2019-01-30] MEDS: ceFAZolin 1 GM ADVAN(*) 1 GM in NS 0.9% 50 ML* 50 ML IVPB SCH (13:52)
[2019-01-30] MEDS: Mirtazapine TAB* 15 MG PO SCH (20:50)
[2019-01-30] MEDS: Melatonin 3 MG TAB PO PRN (20:51)
[2019-01-30] MEDS: HYDROcodone/ACETAMIN 5-325 MG* 1 TAB PO PRN (20:51)
[2019-01-30] MEDS: guaiFENesin LIQ* 100 MG/5 ML UDC PO PRN (20:52)
[2019-01-30] MEDS: Morphine INJ* 2 MG/ML 1 ML SYRINGE (TWO MG - NEW SYRINGE VERSION) IV PRN (22:52)
[2019-01-30] MEDS: Benzonatate CAP* 100 MG PO PRN (23:44)
[2019-01-31 06:39] LABS: ABS Basophils 0.1 10^3/ul (0-0.2); ABS Eosinophils 0.1 10^3/ul (0-0.6); ABS Lymphocytes 0.3 10^3/ul (1.0-4.8); ABS Monocytes 0.5 10^3/ul (0-0.8); ABS Neutrophils 7.9 10^3/ul (1.5-7.7); Hematocrit 33 % (42-52); Hemoglobin 10.8 g/dL (14.0-18.0); Lymphocyte % 3.7 %; Mean Corpuscular HGB Conc 33 g/dL (31-36); Mean Corpuscular Hemoglobin 30 pg (27-31); Mean Corpuscular Volume 93 fL (80-94); Mean Platelet Volume 6.8 fL (7.4-10.4); Platelet Count 261 10^3/uL (150-450); Red Blood Count 3.56 10^6 /uL (4.18-5.48); Red Cell Distribution Width 15 % (10-15); White Blood Count 8.9 10^3/uL (3.5-10.8)
[2019-01-31 06:57] LABS: BUN/Creatinine Ratio 6.3 (8-20); Calcium 8.4 mg/dL (8.6-10.3); EGFR African American 11.5 (>60); EGFR Non-African American 9.5 (>60); Magnesium 2.3 mg/dL (1.9-2.7); Potassium 5.3 mmol/L (3.5-5.0)
[2019-01-31] MEDS ORDERED: Midazolam* 1 MG/ML 5 ML VIAL (5 MG) ONE (08:15)
[2019-01-31] MEDS ORDERED: Lidocaine 1% INJ* 10 MG/ML 30 ML SDV ONE ×2 (08:15→08:33)
[2019-01-31] MEDS ORDERED: fentaNYL* 50 MCG/ML 2 ML VIAL (100 MCG VIAL) ONE (08:15)
[2019-01-31] MEDS ORDERED: Naloxone* 0.4 MG/ML 1 ML VIAL ONE (08:15)
[2019-01-31] MEDS ORDERED: Flumazenil* 0.1 MG/ML 5 ML MDV ONE (08:15)
[2019-01-31] MEDS ORDERED: Heparin 2 UNITS/ML IVPREMIX* 2,000 UNIT/1,000 ML BAG IV ONE (08:17)
[2019-01-31] MEDS ORDERED: Iohexol 300* (CONTRAST) 10 ML SDV ONE (08:45)
--- NOTE | 2019-01-31 12:24 | CONSULT ---
Consult Consult: Psychiatry attempted to follow up with Mr. El this morning in the dialysis room on , however, he has just returned from a fistulogram procedure downstairs, for which he received sedating medications, and he is unable to participate in meaningful psychiatric examination at this time. I'll attempt to follow up with him tomorrow (02/01).
--- NOTE | 2019-01-31 12:55 | PN ---
Progress Note - Progress Note Date of Service: 01/31/19 SOAP: Subjective: []I saw Rickie today at bedside. He isn't feeling well today, he is quite disoriented and unable to have a conversation with me. He had dialysis earlier today. Objective: [] General: NAD but mumbling and answering minimal questions. Confirms lidocaine in the sponge has reduced pain for vac change. LLE: Wound vac changed today, good suction achieved. Left lateral foot ulcer measures roughly 5cm long x3.5cm wide x 2 cm deep. The wound undermines towards the plantar aspect. There is granulation tissue at the base with minimal bleeding. Wound edges are macerated. There is no purulence or erythema surrounding. Great toe is ecchymotic distally. Assessment: L foot infection/ulcer; s/p revascularization on 01/26 Plan: 1) On plavix and aspirin, not on heparin due to excessive wound bleeding and INR elevation. 2) continue IV Abx- cefazolin 3) wound vac changes q 3 days, changed today 01/31 due 02/03 4) will watch LLE wound closely and allow time to heal since revascularization on 01/26. Discussed great toe with nursing, unsure if this is from poor vasc supply or pressure. No known source of pressure in this area, please ensure foot does not rest against the footboard of the board Vital Signs Temp 98.0 F 01/31/19 07:48 Pulse 77 01/31/19 07:48 Resp 20 01/31/19 07:53 BP 95/45 01/31/19 07:48 Pulse Ox 93 01/31/19 07:53 Intake & Output 01/30/19 01/31/19 01/31/19 18:59 06:59 18:59 Intake Total 840 60 Output Total 125 Balance 840 -65 Weight 220 lb 12.8 oz Intake: IV Fluids 120 MAGNESIUM 100 NS (0.45%) 20 IVPB 60 MAGNESIUM 50 NS (0.45%) 10 Oral 660 60 Output: Urine 125 Other: Estimated Void Small # Bowel Movements 1 Estimated Stool Amount Medium # Voids 0 1 Laboratory Last Values WBC 8.9 10^3/uL (3.5-10.8) 01/31/19 06:09 RBC 3.56 10^6 /uL (4.18-5.48) L 01/31/19 06:09 Hgb 10.8 g/dL (14.0-18.0) L 01/31/19 06:09 Hct 33 % (42-52) L 01/31/19 06:09 MCV 93 fL (80-94) 01/31/19 06:09 MCH 30 pg (27-31) 01/31/19 06:09 MCHC 33 g/dL (31-36) 01/31/19 06:09 RDW 15 % (10-15) 01/31/19 06:09 Plt Count 261 10^3/uL (150-450) 01/31/19 06:09 MPV 6.8 fL (7.4-10.4) L 01/31/19 06:09 Neut % (Auto) 88.8 % 01/31/19 06:09 Lymph % (Auto) 3.7 % 01/31/19 06:09 [place] % (Auto) 5.4 % 01/31/19 06:09 Eos % (Auto) 1.0 % 01/31/19 06:09 Baso % (Auto) 1.1 % 01/31/19 06:09 Absolute Neuts (auto) 7.9 10^3/ul (1.5-7.7) H 01/31/19 06:09 Absolute Lymphs (auto) 0.3 10^3/ul (1.0-4.8) L 01/31/19 06:09 Absolute Monos (auto) 0.5 10^3/ul (0-0.8) 01/31/19 06:09 Absolute Eos (auto) 0.1 10^3/ul (0-0.6) 01/31/19 06:09 Absolute Basos (auto) 0.1 10^3/ul (0-0.2) 01/31/19 06:09 Absolute Nucleated RBC 0.0 10^3/ul 01/31/19 06:09 Nucleated RBC % 0.0 01/31/19 06:09 INR (Anticoag Therapy) 3.41 (0.82-1.09) H 01/20/19 06:26 POC Activ Clotting Time 288 seconds 01/26/19 16:30 Sodium 132 mmol/L (135-145) L 01/31/19 06:09 Potassium 5.3 mmol/L (3.5-5.0) H 01/31/19 06:09 Chloride 95 mmol/L (101-111) L 01/31/19 06:09 Carbon Dioxide 27 mmol/L (22-32) 01/31/19 06:09 Anion Gap 10 mmol/L (2-11) 01/31/19 06:09 BUN 37 mg/dL (6-24) H 01/31/19 06:09 Creatinine 5.86 mg/dL (0.67-1.17) H 01/31/19 06:09 1/Creatinine 0.17 01/03/19 08:24 Est GFR ( Amer) 11.5 (>60) 01/31/19 06:09 Est GFR (Non-Af Amer) 9.5 (>60) 01/31/19 06:09 BUN/Creatinine Ratio 6.3 (8-20) L 01/31/19 06:09 Glucose 94 mg/dL (70-100) 01/31/19 06:09 POC Glucose (mg/dL) 142 mg/dL (70-100) H 01/22/19 11:31 Hemoglobin A1c 6.4 % (4.0-5.6) H 01/18/19 06:45 Serum Osmolality 287 mOsm/kg (275-295) 01/27/19 17:10 Lactic Acid 2.2 mmol/L (0.5-2.0) H* 12/29/18 14:16 Calcium 8.4 mg/dL (8.6-10.3) L 01/31/19 06:09 Ionized Calcium 1.05 mmol/L (1.16-1.32) L 01/28/19 05:39 Phosphorus 4.5 mg/dL (2.5-5.0) 01/23/19 05:55 Magnesium 2.3 mg/dL (1.9-2.7) 01/31/19 06:09 Total Bilirubin 0.40 mg/dL (0.2-1.0) 01/18/19 06:45 Direct Bilirubin 0.20 mg/dL (0.03-0.18) H 01/08/19 06:31 Indirect Bilirubin 0.4 mg/dL (0.3-1.0) 01/08/19 06:31 AST 18 U/L (13-39) 01/18/19 06:45 ALT < 3 U/L (7-52) L 01/18/19 06:45 Alkaline Phosphatase 99 U/L (34-104) 01/18/19 06:45 C-Reactive Protein 152.01 mg/L (<8.01) H 01/17/19 06:15 Total Protein 5.8 g/dL (6.4-8.9) L 01/18/19 06:45 Albumin 2.4 g/dL (3.2-5.2) L 01/18/19 06:45 Globulin 3.4 g/dL (2-4) 01/18/19 06:45 Albumin/Globulin Ratio 0.7 (1-3) L 01/18/19 06:45 Urine Osmolality 341 mOsm/kg (100-1150) 01/29/19 20:40 Fluid Source Peritoneal 01/08/19 16:28 Fluid Volume 50.0 mL 01/08/19 16:28 Fluid Color Yellow 01/08/19 16:28 Fluid Appearance Clear 01/08/19 16:28 Fluid WBC 358 /mcL (0-624655) 01/08/19 16:28 Fluid RBC 313 /mcL 01/08/19 16:28 Fluid Tot Cell Count 100 01/08/19 16:28 Fluid Neutrophils 36 % 01/08/19 16:28 Fluid Band Neutrophils 1 % 01/08/19 16:28 Fluid Lymphocytes 4 % 01/08/19 16:28 Fluid Monocytes 58 % 01/08/19 16:28 Fluid Eosinophils 1 % 01/08/19 16:28 Fluid Other Cells 2 01/08/19 16:28 Fluid Cell Count Rvw By 01/08/19 16:28 Fluid Total Protein 4.1 g/dL 01/08/19 16:28 Fluid Comment 01/08/19 16:28 Random Vancomycin 6.3 mcg/mL 12/31/18 11:00 Anti-Nuclear Antibody 0.3 U 01/21/19 05:46 Mitochondria M2 Ab <0.1 U 01/21/19 05:46 Anti-Smooth Muscle Ab Negative (Negative) 01/21/19 05:46 Hepatitis B Antibody Not immune (Immune) A 12/31/18 11:00 Hep Bs Antigen Negative (Negative) 12/31/18 11:00 Hepatitis C Antibody Negative (Negative) 01/19/19 06:11 Hepatitis C Ab Index 0.03 s/c 01/19/19 06:11 Miscellaneous Test See comments 01/08/19 16:28 Blood Type O Positive 01/27/19 17:10 Antibody Screen Negative 01/27/19 17:10 Crossmatch See Detail 01/27/19 17:10
--- NOTE | 2019-01-31 13:07 | PN ---
Subjective Date of Service: 01/31/19 Interval History: Mr. El is not feeling well this morning. He is not able to further describe his symptoms. He is in dialysis on my exam and did receive sedating medication during his procedure this morning. He is not able to remain awake to answer any further questions. Dialysis nurse reports he has been drowsy since arriving, but easily awoken. Family History: Unchanged from Admission Social History: Unchanged from Admission Past Medical History: Unchanged from Admission Objective Active Medications: Acetaminophen (Tylenol Tab*) 650 mg PO Q4H PRN FEVER/PAIN Aspirin (Aspirin 81 Mg Chew Tab*) 81 mg PO DAILY G[facility] Atorvastatin Calcium (Lipitor*) 80 mg PO QAM GERONIMO Benzonatate (Tessalon Cap*) 100 mg PO Q6H PRN COUGH Calcium Carbonate (Tums*) 500 mg PO Q4H PRN INDIGESTION Clopidogrel Bisulfate (Plavix Tab*) 37.5 mg PO DAILY [facility] Gemfibrozil (Lopid Tab*) 600 mg PO BID [facility]ON[facility] Guaifenesin (Robitussin*) 5 ml PO Q6H PRN COUGH Cefazolin Sodium 1 gm/ Sodium (Chloride) 50 mls @ 200 mls/hr IVPB Q24H [facility] Lidocaine/Prilocaine (Emla*) 1 applic TOPICAL MoWeFr GER[facility] Magnesium Hydroxide (Milk Of Magnandrew Liq*) 30 ml PO BID PRN CONSTIPATION Melatonin (Melatonin) 3 mg PO BEDTIME PRN SLEEP Mirtazapine (Remeron Tab*) 7.5 mg PO BEDTIME GERONIMO Ondansetron HCl (Zofran Odt Tab*) 4 mg SL Q6H PRN NAUSEA/VOMITING Pantoprazole Sodium (Protonix Tab*) 40 mg PO DAILY [facility] Polyethylene Glycol/Electrolytes (Miralax*) 17 gm PO DAILY PRN CONSTIPATION Senna (Senokot Tab*) 1 tab PO BEDTIME PRN CONSTIPATION Sevelamer Carbonate (Renvela Tab*) 1,600 mg PO 0845,1245,1745 [facility] Vital Signs - 8 hr 01/31/19 01/31/19 07:48 07:53 Temperature 98.0 F Pulse Rate 77 Respiratory 20 20 Rate Blood Pressure 95/45 (mmHg) O2 Sat by Pulse 93 93 Oximetry Oxygen Devices in Use Now: Nasal Cannula - 2L Appearance: Elderly male laying in bed in NAD Eyes: No Scleral Icterus Ears/Nose/Mouth/Throat: Mucous Membranes Moist Neck: NL Appearance and Movements; NL JVP, Trachea Midline Respiratory: Symmetrical Chest Expansion and Respiratory Effort, Clear to Auscultation Cardiovascular: NL Sounds; No Murmurs; No JVD, RRR Abdominal: NL Sounds; No Tenderness; No Distention Neurological: - - Drowsy, oriented to self Lines/Tubes/Other Access: Clean, Dry and Intact Peripheral IV Nutrition: Taking PO's Result Diagrams: 01/31/19 06:09 01/31/19 06:09 Assess/Plan/Problems-Billing Assessment: Mr El is a 73 M with PMH of DM2 now controlled with diet, ESRD on HD, CAD, 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 Also with osteo of 5th metatarsal, now s /p L foot I&D and excision of 5th metatarsal base on 01/06. PCR in OR positive for Staph aureus without growth. S/p debridement of L lateral mid-foot with ostectomy, partial cuboid resection, I&D and vac (01/11 + 01/20). - Patient Problems (1) Subacute osteomyelitis, left ankle and foot Code(s): M86.272 - SUBACUTE OSTEOMYELITIS, LEFT ANKLE AND FOOT Comment: - Wound culture grew MSSA - Blood cultures negative - NWB LLE - Wound vac changed due to be changed today by Ortho - Pain control for dressing changes and procedures - Continue cefazolin per ID (day -56) (2) PAD (peripheral artery disease) Code(s): I73.9 - PERIPHERAL VASCULAR DISEASE, UNSPECIFIED Comment: - S/p LLE revascularization 12/27/[address] 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; less likely cirrhosis given low SAAG - Possibility of taking off more fluid during HD, although patient frequently hypotensive during HD (4) ESRD (end stage renal disease) Code(s): N18.6 - END STAGE RENAL DISEASE Comment: - Normally MWF dialysis - Fistulogram this morning, results pending - Continue sevelamer (5) Hyponatremia Code(s): E87.1 - HYPO-OSMOLALITY AND HYPONATREMIA Comment: - Appears chronic and remains stable (6) Passive suicidal ideations Code(s): R45.851 - SUICIDAL IDEATIONS Comment: - Reports from - Patient denies suicidal ideation but reports he has been feeling overwhelmed; he and his state he has been feeling this way for 6 months - Dr. Henriquez evaluated patient and given hyponatremia and ESRD recommends mirtazapine - Continue mirtazapine (7) Coronary artery disease Code(s): I25.10 - ATHSCL HEART DISEASE OF [place] CORONARY ARTERY W/O ANG PCTRS Comment: - Continue aspirin, atorvastatin, gemfibrozil (8) Anemia Code(s): D64.9 - ANEMIA, UNSPECIFIED Comment: - Stable, normocytic anemia - Suspect anemia of chronic disease and CKD - Continue Epoetin Alpha per Nephrology (9) Type 2 diabetes mellitus Comment: - A1c 6.4% - No fingersticks given good BG control during this hospitalization (10) DVT prophylaxis Comment: - SCDs - Persistent bleeding from foot when on medical DVT ppx; ongoing risk of oozing causing wound vac to fail outweighs risk of DVT at this time, as continued bleeding will prolong hospitalization (11) Full code status Code(s): Z78.9 - OTHER SPECIFIED HEALTH STATUS Comment: Status and Disposition: Inpatient. Anticipate d/c to [facility] when medically stable. Cleared for d/c by Ortho , but will need to speak with ID, and Nephrology to determine clinical course. Attending: Yvonne Ngo
[2019-01-31] MEDS: Aspirin 81 mg CHEW TAB* 81 MG TAB.CHEW PO SCH (14:33)
[2019-01-31] MEDS: Sevelamer TAB* 800 MG PO SCH ×2 (14:33→17:20)
[2019-01-31] MEDS: Atorvastatin* 80 MG TAB PO SCH (14:34)
[2019-01-31] MEDS: Clopidogrel TAB* 75 MG PO SCH (14:34)
[2019-01-31] MEDS: PRILOCAINE TOPICAL SCH (14:36)
[2019-01-31] MEDS: LIDOCAINE TOPICAL SCH (14:36)
[2019-01-31] MEDS: Pantoprazole TAB * 40 MG TAB PO SCH (14:36)
[2019-01-31] MEDS: Gemfibrozil TAB* 600 MG PO SCH ×2 (14:36→20:56)
[2019-01-31] MEDS ORDERED: Lidocaine 1% MPF* 2 ML VIAL ONE (15:23)
[2019-01-31] MEDS: ceFAZolin 1 GM ADVAN(*) 1 GM in NS 0.9% 50 ML* 50 ML IVPB SCH (15:24)
[2019-01-31] MEDS ORDERED: Morphine INJ* 2 MG/ML 1 ML SYRINGE (TWO MG - NEW SYRINGE VERSION) IV ONE (15:24)
[2019-01-31] MEDS: Ondansetron ODT TAB* 4 MG SL PRN (15:24)
--- NOTE | 2019-01-31 15:54 | PN ---
Progress Note - Progress Note Date of Service: 01/31/19 SOAP: Subjective: CC: Left foot infection HPI: Mr. 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 Reports continued pain in the left foot, that is increased with manipulation of the foot for wound vac dressing changes. Denies fever, chills, ABD pain, nausea, vomiting, or diarrhea. He reports that he isn't feeling well, but is unable to really describe this. Objective: Vital Signs - 8 hr 01/31/19 07:48 Temperature 98.0 F Temperature Oral Source Pulse Rate 77 Respiratory 20 Rate Blood Pressure 95/45 (mmHg) O2 Sat by Pulse 93 Oximetry Patient on Room No Air Physical Exam: General: NAD, ill appearing male laying in bed Neurological: Alert but drowsy, oriented to person and place HEENT: Moist MM, no thrush Cardiovascular: Heart rate regular Respiratory: Lung sounds clear Abdominal: Bowel sounds present; ABD large, soft and nontender Skin: There is a wound to the lateral aspect of the left foot, the wound bed has some red granulation tissue, but there is also necrotic tissue on the wound edges. The wound also has undermining. Laboratory Results - last 24 hr 01/31/19 01/31/19 06:09 06:09 WBC 8.9 RBC 3.56 L Hgb 10.8 L Hct 33 L MCV 93 MCH 30 MCHC 33 RDW 15 Plt Count 261 MPV 6.8 L Neut % (Auto) 88.8 Lymph % (Auto) 3.7 [place] % (Auto) 5.4 Eos % (Auto) 1.0 Baso % (Auto) 1.1 Absolute Neuts (auto) 7.9 H Absolute Lymphs (auto) 0.3 L Absolute Monos (auto) 0.5 Absolute Eos (auto) 0.1 Absolute Basos (auto) 0.1 Absolute Nucleated RBC 0.0 Nucleated RBC % 0.0 Sodium 132 L Potassium 5.3 H Chloride 95 L Carbon Dioxide 27 Anion Gap 10 BUN 37 H Creatinine 5.86 H Est GFR ( Amer) 11.5 Est GFR (Non-Af Amer) 9.5 BUN/Creatinine Ratio 6.3 L Glucose 94 Calcium 8.4 L Magnesium 2.3 Microbiology 01/31/19 06:30 Stool Occult Blood (RJ) - Final Stool 01/11/19 15:05 Anaerobic Culture - Final Wound No Growth Day 4 01/11/19 15:05 Skin and Soft Tissue MRSA/MSSA (PCR - Final Foot Left Mrsa Negative S.aureus Positive Gram Stain - Final Wound Culture - Final No Growth Day 4 01/08/19 16:28 Sterile Body Fluid Culture - Final Peritoneal Fluid No Growth Day 5 Sterile Body Fluid Culture - Final No Growth Day 5 01/06/19 12:01 Anaerobic Culture - Final Wound No Growth Day 4 01/06/19 12:01 Skin and Soft Tissue MRSA/MSSA (PCR - Final Foot Left Mrsa Negative S.aureus Positive Gram Stain - Final Wound Culture - Final No Growth Day 4 01/08/19 16:28 Gram Stain - Final Body Fluid 01/03/19 10:13 Gram Stain - Final Foot Left Wound Culture - Final Staphylococcus Aureus 12/29/18 14:15 Aerobic Blood Culture - Final Blood Venous No Growth Day 5 Anaerobic Blood Culture - Final No Growth Day 5 12/29/18 16:00 Gram Stain - Final Foot Left Wound Culture - Final Staphylococcus Aureus Normal Jero 12/29/18 16:00 Skin and Soft Tissue MRSA/MSSA (PCR - Final Foot Left Mrsa Negative S.aureus Negative Gram Stain - Final Wound Culture - Final Normal Jero Assessment: 1. Left foot cellulitis with chronic osteomyelitis of the 5th metatarsal. Initial left foot wound culture with normal jero and staph aureus. Repeat culture on 01/03 with staph aureus. S/P multiple left foot surgeries during this admission including a left foot I+D and excision of 5th metatarsal base, additional debridement and ostectomy with partial cuboid resection, I+D and VAC dressing on 01/11/19, and wound vac dressing changes in the OR. Last trip to the OR was 01/24/19. Cultures obtained in the OR on 01/06 with PCR positive for staph aureus and no growth day 5. Cultures obtained in the OR on 01/11/19 with PCR positive for staph aureus, no growth in final cultures. Pathology from the bone sample from the original surgery with acute and chronic osteomyelitis. 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 Cosby on 01/26/19. Afebrile and no leukocytosis. CRP peaked at 255 and has started to trend down. 2. DM2 with neuropathy. 3. ESRD on hemodialysis. Plan: Continue Cefazolin for now, day 25/42-56. Will add a CRP to this AM's labs. Weekly labs while on IV ABX; CBC, CMP, and CRP. Further recommendations, IV vs PO ABX at discharge pending clinical course.
[2019-01-31] MEDS: Mirtazapine TAB* 15 MG PO SCH (20:55)
[2019-02-01 07:14] LABS: INR 3.95 (0.82-1.09)
[2019-02-01 07:24] LABS: Anion Gap 10 mmol/L (2-11); BUN/Creatinine Ratio 5.4 (8-20); Blood Urea Nitrogen 26 mg/dL (6-24); CO2 Carbon Dioxide 30 mmol/L (22-32); Calcium 8.3 mg/dL (8.6-10.3); Chloride 94 mmol/L (101-111); EGFR African American 14.4 (>60); EGFR Non-African American 11.9 (>60); Glucose 55 mg/dL (70-100); Potassium 4.8 mmol/L (3.5-5.0); Sodium 134 mmol/L (135-145)
[2019-02-01] MEDS: Aspirin 81 mg CHEW TAB* 81 MG TAB.CHEW PO SCH (09:28)
[2019-02-01] MEDS: Sevelamer TAB* 800 MG PO SCH ×3 (09:28→17:35)
[2019-02-01] MEDS: Clopidogrel TAB* 75 MG PO SCH (09:28)
[2019-02-01] MEDS: Atorvastatin* 80 MG TAB PO SCH (09:28)
[2019-02-01] MEDS: Pantoprazole TAB * 40 MG TAB PO SCH (09:28)
[2019-02-01] MEDS: Gemfibrozil TAB* 600 MG PO SCH ×2 (09:28→23:00)
--- NOTE | 2019-02-01 12:03 | PN ---
Progress Note - Progress Note Date of Service: 02/01/19 SOAP: Subjective: []Saw Rickie at bedside today, he remains sedated but less so than yesterday. Denies any complaints today. Objective: []General: NAD LLE: Dressing CDI, vac functioning well with minimal drainage in canister. Great toe is ecchymosis unchanged. Assessment: L foot infection/ulcer; s/p revascularization on 01/26 Plan: 1) On plavix and aspirin, not on heparin due to excessive wound bleeding and INR elevation. 2) continue IV Abx- cefazolin 3) wound vac changes q 3 days, changed 01/31 due 02/03 4) will watch LLE wound closely and allow time to heal since revascularization on 01/26 Vital Signs Temp 98.4 F 02/01/19 10:22 Pulse 71 02/01/19 10:22 Resp 18 02/01/19 10:22 BP 117/28 02/01/19 10:22 Pulse Ox 98 02/01/19 10:22 Intake & Output 01/31/19 02/01/19 02/01/19 18:59 06:59 18:59 Intake Total 90 0 200 Output Total 0 Balance 90 0 200 Weight 220 lb Intake: IV Fluids 80 ABX - CEFAZOLIN 50 MAGNESIUM 0 NS (0.45%) 10 NS (0.9%) 20 IVPB 10 ABX - CEFAZOLIN 0 NS (0.9%) 10 Oral 0 0 200 Output: Urine 0 Other: # Bowel Movements 0 # Voids 0 Laboratory Last Values WBC 8.9 10^3/uL (3.5-10.8) 01/31/19 06:09 RBC 3.56 10^6 /uL (4.18-5.48) L 01/31/19 06:09 Hgb 10.8 g/dL (14.0-18.0) L 01/31/19 06:09 Hct 33 % (42-52) L 01/31/19 06:09 MCV 93 fL (80-94) 01/31/19 06:09 MCH 30 pg (27-31) 01/31/19 06:09 MCHC 33 g/dL (31-36) 01/31/19 06:09 RDW 15 % (10-15) 01/31/19 06:09 Plt Count 261 10^3/uL (150-450) 01/31/19 06:09 MPV 6.8 fL (7.4-10.4) L 01/31/19 06:09 Neut % (Auto) 88.8 % 01/31/19 06:09 Lymph % (Auto) 3.7 % 01/31/19 06:09 [place] % (Auto) 5.4 % 01/31/19 06:09 Eos % (Auto) 1.0 % 01/31/19 06:09 Baso % (Auto) 1.1 % 01/31/19 06:09 Absolute Neuts (auto) 7.9 10^3/ul (1.5-7.7) H 01/31/19 06:09 Absolute Lymphs (auto) 0.3 10^3/ul (1.0-4.8) L 01/31/19 06:09 Absolute Monos (auto) 0.5 10^3/ul (0-0.8) 01/31/19 06:09 Absolute Eos (auto) 0.1 10^3/ul (0-0.6) 01/31/19 06:09 Absolute Basos (auto) 0.1 10^3/ul (0-0.2) 01/31/19 06:09 Absolute Nucleated RBC 0.0 10^3/ul 01/31/19 06:09 Nucleated RBC % 0.0 01/31/19 06:09 INR (Anticoag Therapy) 3.95 (0.82-1.09) H 02/01/19 06:41 POC Activ Clotting Time 288 seconds 01/26/19 16:30 Sodium 134 mmol/L (135-145) L 02/01/19 06:41 Potassium 4.8 mmol/L (3.5-5.0) 02/01/19 06:41 Chloride 94 mmol/L (101-111) L 02/01/19 06:41 Carbon Dioxide 30 mmol/L (22-32) 02/01/19 06:41 Anion Gap 10 mmol/L (2-11) 02/01/19 06:41 BUN 26 mg/dL (6-24) H 02/01/19 06:41 Creatinine 4.82 mg/dL (0.67-1.17) H 02/01/19 06:41 1/Creatinine 0.17 01/03/19 08:24 Est GFR ( Amer) 14.4 (>60) 02/01/19 06:41 Est GFR (Non-Af Amer) 11.9 (>60) 02/01/19 06:41 BUN/Creatinine Ratio 5.4 (8-20) L 02/01/19 06:41 Glucose 55 mg/dL (70-100) L 02/01/19 06:41 POC Glucose (mg/dL) 92 mg/dL (70-100) 02/01/19 08:21 Hemoglobin A1c 6.4 % (4.0-5.6) H 01/18/19 06:45 Serum Osmolality 287 mOsm/kg (275-295) 01/27/19 17:10 Lactic Acid 2.2 mmol/L (0.5-2.0) H* 12/29/18 14:16 Calcium 8.3 mg/dL (8.6-10.3) L 02/01/19 06:41 Ionized Calcium 1.05 mmol/L (1.16-1.32) L 01/28/19 05:39 Phosphorus 4.5 mg/dL (2.5-5.0) 01/23/19 05:55 Magnesium 2.3 mg/dL (1.9-2.7) 01/31/19 06:09 Total Bilirubin 0.40 mg/dL (0.2-1.0) 01/18/19 06:45 Direct Bilirubin 0.20 mg/dL (0.03-0.18) H 01/08/19 06:31 Indirect Bilirubin 0.4 mg/dL (0.3-1.0) 01/08/19 06:31 AST 18 U/L (13-39) 01/18/19 06:45 ALT < 3 U/L (7-52) L 01/18/19 06:45 Alkaline Phosphatase 99 U/L (34-104) 01/18/19 06:45 Ammonia 131 mcmol/L (16-53) H 02/01/19 11:24 C-Reactive Protein 152.01 mg/L (<8.01) H 01/17/19 06:15 Total Protein 5.8 g/dL (6.4-8.9) L 01/18/19 06:45 Albumin 2.4 g/dL (3.2-5.2) L 01/18/19 06:45 Globulin 3.4 g/dL (2-4) 01/18/19 06:45 Albumin/Globulin Ratio 0.7 (1-3) L 01/18/19 06:45 Urine Osmolality 341 mOsm/kg (100-1150) 01/29/19 20:40 Fluid Source Peritoneal 01/08/19 16:28 Fluid Volume 50.0 mL 01/08/19 16:28 Fluid Color Yellow 01/08/19 16:28 Fluid Appearance Clear 01/08/19 16:28 Fluid WBC 358 /mcL ([id number]) 01/08/19 16:28 Fluid RBC 313 /mcL 01/08/19 16:28 Fluid Tot Cell Count 100 01/08/19 16:28 Fluid Neutrophils 36 % 01/08/19 16:28 Fluid Band Neutrophils 1 % 01/08/19 16:28 Fluid Lymphocytes 4 % 01/08/19 16:28 Fluid Monocytes 58 % 01/08/19 16:28 Fluid Eosinophils 1 % 01/08/19 16:28 Fluid Other Cells 2 01/08/19 16:28 Fluid Cell Count Rvw By 01/08/19 16:28 Fluid Total Protein 4.1 g/dL 01/08/19 16:28 Fluid Comment 01/08/19 16:28 Random Vancomycin 6.3 mcg/mL 12/31/18 11:00 Anti-Nuclear Antibody 0.3 U 01/21/19 05:46 Mitochondria M2 Ab <0.1 U 01/21/19 05:46 Anti-Smooth Muscle Ab Negative (Negative) 01/21/19 05:46 Hepatitis B Antibody Not immune (Immune) A 12/31/18 11:00 Hep Bs Antigen Negative (Negative) 12/31/18 11:00 Hepatitis C Antibody Negative (Negative) 01/19/19 06:11 Hepatitis C Ab Index 0.03 s/c 01/19/19 06:11 Miscellaneous Test See comments 01/08/19 16:28 Blood Type O Positive 01/27/19 17:10 Antibody Screen Negative 01/27/19 17:10 Crossmatch See Detail 01/27/19 17:10
--- NOTE | 2019-02-01 12:32 | CONSULT ---
Identification - Patient Identification Reason for Psychiatric Consultation: Patient Distress -: Patient is a 73 year old, M admitted on 12/29/18. - MHU Identification Employment Status: Employed Hx Psychiatric Hospitalization: No History - Objective HPI: Rickie is seen for psychiatric follow on . He remains sedated and will only answer questions with some prompting. He is oriented to place but not time or situation. He seems confused and does not recall previous conversations with this clinician. Exam Appearance: Well Developed/Nourished Hygiene: Normal Grooming: Fairly Well Kept Psychomotor Activities: Abnormal-Decreased Exhibits Abnormal Movement: No Attitude and Relatedness: Dismissive Eye Contact: Poor - Speech Quality: Unpressured Latencies: Normal Quantity: Terse Patient's Thought Process: Incoherent Thought Content: No Passive Wish, No Suicidal Planning, No Homicidal Ideation, No Paranoid Ideation Experiencing Hallucinations: No, Sensorium is Clear Type of Hallucinations: Visual: No, Auditory: No, Command: No Level of Consciousness: Lethargic Orientation: Yes Orientated to Place, No Intact, No Orientated to Time, No Orientated to Person Impression - Impression Clinical Impression: 73 y.o. , employed, white male with prior psychiatric history but a complicated medical picture of diabetes, end-stage renal disease, CAD, peripheral vasculopathy admitted to the Medicine service due to pain and infection in his left foot. The patient is facing likely amputation of his lower left extremity and is overwhelmed and depressed. Inpatient DSM-V Dx: F32.2 Merits Inpatient Hospitalization: No BSU: Problem List - Patient Problems (1) MDD (major depressive disorder), single episode, severe Current Visit: Yes Status: Acute Code(s): F32.2 - MAJOR DEPRESSV DISORD, SINGLE EPSD, SEV W/O PSYCH FEATURES SNOMED Code(s): 926601237310 Plan - Treatment Plan Treatment Plan: Rickie seems slightly encephalopathic this morning and it's not clear whether this is a medication effect versus perhaps hepatic encephalopathy, given his elevated ammonia level. We have started a trial of mirtazapine 7.5mg PO qhs for depression and will continue to monitor his progress with the primary team. Lactulose has been started by the Hospitalist service. Continued Medication Management: Start Medication Medications: Current Medications Acetaminophen (Tylenol Tab*) 650 mg PO Q4H PRN PRN Reason: FEVER/PAIN Last Admin: 01/10/19 07:31 Dose: 650 mg Aspirin (Aspirin 81 Mg Chew Tab*) 81 mg PO DAILY [facility] Last Admin: 02/01/19 09:28 Dose: 81 mg Atorvastatin Calcium (Lipitor*) 80 mg PO QAM [facility] Last Admin: 02/01/19 09:28 Dose: 80 mg Benzonatate (Tessalon Cap*) 100 mg PO Q6H PRN PRN Reason: COUGH Last Admin: 01/30/19 23:44 Dose: 100 mg Calcium Carbonate (Tums*) 500 mg PO Q4H PRN PRN Reason: INDIGESTION Last Admin: 12/30/18 14:18 Dose: 500 mg Clopidogrel Bisulfate (Plavix Tab*) 37.5 mg PO DAILY [facility] Stop: 04/26/19 18:59 Last Admin: 02/01/19 09:28 Dose: 37.5 mg Gemfibrozil (Lopid Tab*) 600 mg PO BID [facility] Last Admin: 02/01/19 09:28 Dose: 600 mg Guaifenesin (Robitussin*) 5 ml PO Q6H PRN PRN Reason: COUGH Last Admin: 01/30/19 20:52 Dose: 5 ml Cefazolin Sodium 1 gm/ Sodium (Chloride) 50 mls @ 200 mls/hr IVPB Q24H [facility] Last Admin: 01/31/19 15:24 Dose: 200 mls/hr Lactulose (Lactulose*) 30 ml PO TID [facility] Lidocaine/Prilocaine (Emla*) 1 applic TOPICAL MoWeFr [facility] Last Admin: 01/31/19 14:36 Dose: Not Given Magnesium Hydroxide (Milk Of Magnesia Liq*) 30 ml PO BID PRN PRN Reason: CONSTIPATION Melatonin (Melatonin) 3 mg PO BEDTIME PRN PRN Reason: SLEEP Last Admin: 01/30/19 20:51 Dose: 3 mg Mirtazapine (Remeron Tab*) 7.5 mg PO BEDTIME [facility] Last Admin: 01/31/19 20:55 Dose: 7.5 mg Ondansetron HCl (Zofran Odt Tab*) 4 mg SL Q6H PRN PRN Reason: NAUSEA/VOMITING Last Admin: 01/31/19 15:24 Dose: 4 mg Pantoprazole Sodium (Protonix Tab*) 40 mg PO DAILY [facility] Last Admin: 02/01/19 09:28 Dose: 40 mg Polyethylene Glycol/Electrolytes (Miralax*) 17 gm PO DAILY PRN PRN Reason: CONSTIPATION Senna (Senokot Tab*) 1 tab PO BEDTIME PRN PRN Reason: CONSTIPATION Last Admin: 01/17/19 09:25 Dose: 1 tab Sevelamer Carbonate (Renvela Tab*) 1,600 mg PO 0845,1245,[id number] [facility] Last Admin: 02/01/19 09:28 Dose: 1,600 mg
[2019-02-01 12:46] LABS: ALT < 3 U/L (7-52); AST 14 U/L (13-39); Albumin 2.5 g/dL (3.2-5.2); Albumin/Globulin Ratio 0.7 (1-3); Alkaline Phosphatase 91 U/L (34-104); Globulin 3.7 g/dL (2-4); Indirect Bilirubin 0.2 mg/dL (0.3-1.0); Total Protein 6.2 g/dL (6.4-8.9)
[2019-02-01] MEDS: ceFAZolin 1 GM ADVAN(*) 1 GM in NS 0.9% 50 ML* 50 ML IVPB SCH (13:34)
--- NOTE | 2019-02-01 14:11 | PN ---
Subjective Date of Service: 02/01/19 Interval History: Mr. El is not feeling well this morning. He reports general malaise. He is quite confused otherwise. Believes it is 2005, but knows he is in the hospital. He is not sure why he is here and is agitated. Nursing reports increased confusion and agitation. Low glucose this morning. Family History: Unchanged from Admission Social History: Unchanged from Admission Past Medical History: Unchanged from Admission Objective Active Medications: Acetaminophen (Tylenol Tab*) 650 mg PO Q4H PRN FEVER/PAIN Aspirin (Aspirin 81 Mg Chew Tab*) 81 mg PO DAILY [facility] Atorvastatin Calcium (Lipitor*) 80 mg PO QAM [facility] Benzonatate (Tessalon Cap*) 100 mg PO Q6H PRN COUGH Calcium Carbonate (Tums*) 500 mg PO Q4H PRN INDIGESTION Clopidogrel Bisulfate (Plavix Tab*) 37.5 mg PO DAILY [facility] Gemfibrozil (Lopid Tab*) 600 mg PO BID [facility] Guaifenesin (Robitussin*) 5 ml PO Q6H PRN COUGH Cefazolin Sodium 1 gm/ Sodium (Chloride) 50 mls @ 200 mls/hr IVPB Q24H [facility] Lactulose (Lactulose*) 30 ml PO TID [facility] Lidocaine/Prilocaine (Emla*) 1 applic TOPICAL MoWeFr [facility] Magnesium Hydroxide (Milk Of Magnandrew Liq*) 30 ml PO BID PRN CONSTIPATION Melatonin (Melatonin) 3 mg PO BEDTIME PRN SLEEP Mirtazapine (Remeron Tab*) 7.5 mg PO BEDTIME [facility] Ondansetron HCl (Zofran Odt Tab*) 4 mg SL Q6H PRN NAUSEA/VOMITING Pantoprazole Sodium (Protonix Tab*) 40 mg PO DAILY [facility] Polyethylene Glycol/Electrolytes (Miralax*) 17 gm PO DAILY PRN CONSTIPATION Senna (Senokot Tab*) 1 tab PO BEDTIME PRN CONSTIPATION Sevelamer Carbonate (Renvela Tab*) 1,600 mg PO [id number],1245,1745 [facility] Vital Signs - 8 hr 02/01/19 02/01/19 02/01/19 08:00 10:22 12:15 Temperature 98.4 F 98.9 F Pulse Rate 71 70 Respiratory 18 14 Rate Blood Pressure 126/46 117/28 108/40 (mmHg) O2 Sat by Pulse 98 97 Oximetry 02/01/19 12:16 Temperature Pulse Rate Respiratory Rate Blood Pressure 114/52 (mmHg) O2 Sat by Pulse Oximetry Oxygen Devices in Use Now: Nasal Cannula - 2L Appearance: Elderly male sitting in bed in NAD, but agitated Eyes: No Scleral Icterus Ears/Nose/Mouth/Throat: Mucous Membranes Moist Neck: NL Appearance and Movements; NL JVP, Trachea Midline Respiratory: Symmetrical Chest Expansion and Respiratory Effort, Clear to Auscultation Cardiovascular: NL Sounds; No Murmurs; No JVD, RRR Abdominal: NL Sounds; No Tenderness; No Distention Neurological: - - Oriented to self and place Lines/Tubes/Other Access: Clean, Dry and Intact Peripheral IV Nutrition: Taking PO's Result Diagrams: 01/31/19 06:09 02/01/19 06:41 Assess/Plan/Problems-Billing Assessment: Mr El is a 73 M with PMH of DM2 now controlled with diet, ESRD on HD, CAD, 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 Also with osteo of 5th metatarsal, now s /p L foot I&D and excision of 5th metatarsal base on 01/06. PCR in OR positive for Staph aureus without growth. S/p debridement of L lateral mid-foot with ostectomy, partial cuboid resection, I&D and vac (01/11 + 01/20). - Patient Problems (1) Subacute osteomyelitis, left ankle and foot Code(s): M86.272 - SUBACUTE OSTEOMYELITIS, LEFT ANKLE AND FOOT Comment: - Wound culture grew MSSA - Blood cultures negative - NWB LLE - Wound vac changed MWF - Pain control for dressing changes and procedures - Continue cefazolin per ID (day -) (2) Hyperammonemia Code(s): E72.20 - DISORDER OF UREA CYCLE METABOLISM, UNSPECIFIED Comment: - Increasingly confused and agitated today, likely r/t ammonia - Unclear etiology; no evidence of liver disease - Recheck tomorrow - Start lactulose (3) PAD (peripheral artery disease) Code(s): I73.9 - PERIPHERAL VASCULAR DISEASE, UNSPECIFIED Comment: - S/p LLE revascularization 12/27/[address] 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; less likely cirrhosis given low SAAG - Possibility of taking off more fluid during HD, although patient frequently hypotensive during HD (5) ESRD (end stage renal disease) Code(s): N18.6 - END STAGE RENAL DISEASE Comment: - Hemodialysis MWF - Fistulogram this morning, results pending - Continue sevelamer (6) Hyponatremia Code(s): E87.1 - HYPO-OSMOLALITY AND HYPONATREMIA Comment: - Appears chronic and remains stable (7) Passive suicidal ideations Code(s): R45.851 - SUICIDAL IDEATIONS Comment: - Reports from - Patient denies suicidal ideation but reports he has been feeling overwhelmed; he and his state he has been feeling this way for 6 months - Dr. Henriquez evaluated patient and given hyponatremia and ESRD recommends mirtazapine - Continue mirtazapine (8) Coronary artery disease Code(s): I25.10 - ATHSCL HEART DISEASE OF [place] CORONARY ARTERY W/O ANG PCTRS Comment: - Continue aspirin, atorvastatin, gemfibrozil (9) Anemia Code(s): D64.9 - ANEMIA, UNSPECIFIED Comment: - Stable, normocytic anemia - Suspect anemia of chronic disease and CKD - Continue Epoetin Alpha per Nephrology (10) Type 2 diabetes mellitus Comment: - A1c 6.4% - No fingersticks given good BG control during this hospitalization (11) DVT prophylaxis Comment: - SCDs - Persistent bleeding from foot when on medical DVT ppx; ongoing risk of oozing causing wound vac to fail outweighs risk of DVT at this time, as continued bleeding will prolong hospitalization (12) Full code status Code(s): Z78.9 - OTHER SPECIFIED HEALTH STATUS Comment: Status and Disposition: Inpatient. Anticipate d/c to [facility] when medically stable. Cleared for d/c by Ortho , but will need to speak with ID, and Nephrology to determine clinical course. Attending: Allyson Lee
[2019-02-01] MEDS ORDERED: Dextrose 50% Syringe 50 ML* 25 GM/50 ML SYRINGE IV PUSH PRN (21:34)
[2019-02-01] MEDS: Mirtazapine TAB* 15 MG PO SCH (22:57)
[2019-02-01] MEDS: Lactulose 300 ML for PR* 10 GM/15 ML BTL PR SCH (23:12)
[2019-02-02 08:26] LABS: ALT < 3 U/L (7-52); AST 14 U/L (13-39); Albumin 2.4 g/dL (3.2-5.2); Albumin/Globulin Ratio 0.6 (1-3); Alkaline Phosphatase 94 U/L (34-104); Anion Gap 8 mmol/L (2-11); BUN/Creatinine Ratio 6.3 (8-20); Blood Urea Nitrogen 34 mg/dL (6-24); CO2 Carbon Dioxide 32 mmol/L (22-32); Calcium 8.2 mg/dL (8.6-10.3); Chloride 94 mmol/L (101-111); EGFR African American 12.7 (>60); EGFR Non-African American 10.5 (>60); Globulin 3.8 g/dL (2-4); Glucose 102 mg/dL (70-100); Potassium 4.9 mmol/L (3.5-5.0); Sodium 134 mmol/L (135-145); Total Protein 6.2 g/dL (6.4-8.9)
[2019-02-02] MEDS: Clopidogrel TAB* 75 MG PO SCH (08:40)
[2019-02-02] MEDS: Aspirin 81 mg CHEW TAB* 81 MG TAB.CHEW PO SCH (08:40)
[2019-02-02] MEDS: Sevelamer TAB* 800 MG PO SCH ×3 (08:40→16:59)
[2019-02-02] MEDS: Gemfibrozil TAB* 600 MG PO SCH ×2 (08:40→22:19)
[2019-02-02] MEDS: Pantoprazole TAB * 40 MG TAB PO SCH (08:40)
[2019-02-02] MEDS: Atorvastatin* 80 MG TAB PO SCH (08:40)
[2019-02-02] MEDS: Lactulose 300 ML for PR* 10 GM/15 ML BTL PR SCH (08:41)
[2019-02-02] MEDS: LIDOCAINE TOPICAL SCH (10:08)
[2019-02-02] MEDS: PRILOCAINE TOPICAL SCH (10:08)
--- NOTE | 2019-02-02 11:55 | PN ---
Subjective Date of Service: 02/02/19 Interval History: Mr. El is feeling okay today. He offers no specific complaints, but does admit to feeling tired. He denies any left foot pain. Denies CP, SOB, N/V. He is not hungry. No concerns from nursing. Family History: Unchanged from Admission Social History: Unchanged from Admission Past Medical History: Unchanged from Admission Objective Active Medications: Acetaminophen (Tylenol Tab*) 650 mg PO Q4H PRN FEVER/PAIN Aspirin (Aspirin 81 Mg Chew Tab*) 81 mg PO DAILY [facility] Atorvastatin Calcium (Lipitor*) 80 mg PO QAM [facility] Benzonatate (Tessalon Cap*) 100 mg PO Q6H PRN COUGH Calcium Carbonate (Tums*) 500 mg PO Q4H PRN INDIGESTION Clopidogrel Bisulfate (Plavix Tab*) 37.5 mg PO DAILY [facility] Dextrose (D50w Syringe 50 Ml*) 25 gm IV PUSH .FOR FS < 60 - SS PRN FS < 60 Gemfibrozil (Lopid Tab*) 600 mg PO BID [facility] Guaifenesin (Robitussin*) 5 ml PO Q6H PRN COUGH Cefazolin Sodium 1 gm/ Sodium (Chloride) 50 mls @ 200 mls/hr IVPB Q24H [facility] Lactulose (Lactulose*) 30 ml PO TID [facility] Lactulose (Lactulose 300 Ml For Pr*) 200 gm WA QID [facility] Lidocaine/Prilocaine (Emla*) 1 applic TOPICAL MoWeFr [facility] Magnesium Hydroxide (Milk Of Magnesia Liq*) 30 ml PO BID PRN CONSTIPATION Melatonin (Melatonin) 3 mg PO BEDTIME PRN SLEEP Mirtazapine (Remeron Tab*) 7.5 mg PO BEDTIME [facility] Ondansetron HCl (Zofran Odt Tab*) 4 mg SL Q6H PRN NAUSEA/VOMITING Pantoprazole Sodium (Protonix Tab*) 40 mg PO DAILY [facility] Polyethylene Glycol/Electrolytes (Miralax*) 17 gm PO DAILY PRN CONSTIPATION Senna (Senokot Tab*) 1 tab PO BEDTIME PRN CONSTIPATION Sevelamer Carbonate (Renvela Tab*) 1,600 mg PO 0845,1245,1745 [facility] Vital Signs - 8 hr 02/02/19 02/02/19 02/02/19 07:22 08:46 11:00 Temperature 98.1 F 97.9 F Pulse Rate 64 66 Respiratory 16 16 16 Rate Blood Pressure 112/59 108/59 (mmHg) O2 Sat by Pulse 96 96 94 Oximetry Oxygen Devices in Use Now: Nasal Cannula - 2L Appearance: Elderly male laying in bed in NAD Eyes: No Scleral Icterus Ears/Nose/Mouth/Throat: Mucous Membranes Moist Neck: NL Appearance and Movements; NL JVP, Trachea Midline Respiratory: Symmetrical Chest Expansion and Respiratory Effort, Clear to Auscultation Cardiovascular: NL Sounds; No Murmurs; No JVD, RRR Abdominal: NL Sounds; No Tenderness; No Distention Extremities: No Edema Neurological: - - Calm, oriented to self Lines/Tubes/Other Access: Clean, Dry and Intact Peripheral IV Nutrition: Taking PO's Result Diagrams: 01/31/19 06:09 02/02/19 07:39 Assess/Plan/Problems-Billing Assessment: Mr El is a 73 M with PMH of DM2 now controlled with diet, ESRD on HD, CAD, 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 Also with osteo of 5th metatarsal, now s /p L foot I&D and excision of 5th metatarsal base on 01/06. PCR in OR positive for Staph aureus without growth. S/p debridement of L lateral mid-foot with ostectomy, partial cuboid resection, I&D and vac (01/11 + 01/20). - Patient Problems (1) Subacute osteomyelitis, left ankle and foot Code(s): M86.272 - SUBACUTE OSTEOMYELITIS, LEFT ANKLE AND FOOT Comment: - Wound culture grew MSSA - Blood cultures negative - NWB LLE - Wound vac changed MWF - Pain control for dressing changes and procedures - Continue cefazolin per ID (day /42-56) (2) Hyperammonemia Code(s): E72.20 - DISORDER OF UREA CYCLE METABOLISM, UNSPECIFIED Comment: - Improved today with lactulose - Increasingly confused from baseline, likely r/t ammonia - Unclear etiology; no evidence of liver disease and ALT is low; this with the combination of ascites (previously thought to be nephrogenic) is concerning for [place] - Appreciate GI consult - Continue lactulose (3) PAD (peripheral artery disease) Code(s): I73.9 - PERIPHERAL VASCULAR DISEASE, UNSPECIFIED Comment: - S/p LLE revascularization 12/27/[address] 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; less likely cirrhosis given low SAAG - Appreciate GI consult - Possibility of taking off more fluid during HD, although patient frequently hypotensive during HD (5) ESRD (end stage renal disease) Code(s): N18.6 - END STAGE RENAL DISEASE Comment: - Hemodialysis MWF - Fistulogram 01/31 showing some stenosis, now s/p balloon dilation - Continue sevelamer (6) Hyponatremia Code(s): E87.1 - HYPO-OSMOLALITY AND HYPONATREMIA Comment: - Appears chronic and remains stable (7) Passive suicidal ideations Code(s): R45.851 - SUICIDAL IDEATIONS Comment: - Reports from - Patient denies suicidal ideation but reports he has been feeling overwhelmed; he and his state he has been feeling this way for 6 months - Dr. Henriquez evaluated patient and given hyponatremia and ESRD recommends mirtazapine - Continue mirtazapine (8) Coronary artery disease Code(s): I25.10 - ATHSCL HEART DISEASE OF [place] CORONARY ARTERY W/O ANG PCTRS Comment: - Continue aspirin, atorvastatin, gemfibrozil (9) Anemia Code(s): D64.9 - ANEMIA, UNSPECIFIED Comment: - Stable, normocytic anemia - Suspect anemia of chronic disease and CKD - Continue Epoetin Alpha per Nephrology (10) Type 2 diabetes mellitus Comment: - A1c 6.4% - No fingersticks given good BG control during this hospitalization (11) DVT prophylaxis Comment: - SCDs - Persistent bleeding from foot when on medical DVT ppx; ongoing risk of oozing causing wound vac to fail outweighs risk of DVT at this time, as continued bleeding will prolong hospitalization (12) Full code status Code(s): Z78.9 - OTHER SPECIFIED HEALTH STATUS Comment: Status and Disposition: Inpatient. Anticipate d/c to [facility] when medically stable. Cleared for d/c by Ortho and ID, but will need to speak with Nephrology to determine clinical course. Attending: Allyson Lee
--- NOTE | 2019-02-02 12:57 | PN ---
Progress Note - Progress Note Date of Service: 02/02/19 SOAP: Subjective: []Saw Rickie in the dialysis suite today. He remains sedated and participates minimally. He is arousable and answers some of my questions. Objective: []General: NAD, sleeping upon arrival but awoke to spoken voice LLE: Dressing CDI, no erythema proximal or distal to dressing. Vac functioning well with minimal drainage in canister. Great toe is ecchymosis unchanged. Calves supple and nontender Assessment: L foot infection/ulcer; s/p revascularization on 01/26 Plan: 1) On plavix and aspirin, not on heparin due to excessive wound bleeding and INR elevation. 2) continue IV Abx- cefazolin 3) wound vac changes q 3 days, changed 01/31 due 02/03 4) will watch LLE wound closely and allow time to heal since revascularization on 01/26 Vital Signs Temp 97.9 F 02/02/19 11:00 Pulse 66 02/02/19 11:00 Resp 16 02/02/19 11:00 BP 108/59 02/02/19 11:00 Pulse Ox 94 02/02/19 11:00 Intake & Output 02/01/19 02/02/19 02/02/19 18:59 06:59 18:59 Intake Total 250 0 Output Total 0 Balance 250 0 Weight 232 lb Intake: IV Fluids 50 ABX - CEFAZOLIN 50 Oral 200 0 Output: Urine 0 Other: Estimated Void Small # Bowel Movements 0 1 Estimated Stool Amount Medium # Voids 0 1
[2019-02-02] MEDS ORDERED: Heparin DIALYSIS ONLY(*) 1,000 UNITS/ML VIAL DIALYSIS ONE (13:30)
[2019-02-02] MEDS: ceFAZolin 1 GM ADVAN(*) 1 GM in NS 0.9% 50 ML* 50 ML IVPB SCH (15:16)
--- NOTE | 2019-02-02 17:53 | DCNOTE ---
INTERIM DISCHARGE SUMMARY (dates of service 12/29/18 - 01/17/19 only) Date of admission: 12/29/18 Mr. El is a 73 yo M with PMH of DM2, ESRD on hemodialysis, CAD s/p CABG, chronic hypoxic respiratory failure on 2L, PVD, and left foot osteomyeltitis; who was a direct [place] [facility] [place] Y[place]. Joaquín was concerned about cellulitis and abscess on the left foot. Blood and and wound cultures were obtained. He was placed on vanco and Zosyn. Ortho was consulted. 12/30/18: Dr. Yanes saw the patient in consult and d/c'd vanco as there was no MRSA on culture. Zosyn was continued. Ortho recommended continuing abx per ID recommendations. 12/31/18: Cellulitis improving, but culture growing Staph aureus so changed to clinda. Purulent drainage was noted on the foot. 01/03/19: MRI reviewed by Dr. Solomon who thought there appeared to be osteomyelitis in the fifth metatarsal. 01/06/19: Taken to the OR by Dr. Fraire. Underwent left foot I&D and excision of left 5th metatarsal base. NWB status. Pathology report shows acute and chronic osteomyelitis. 01/07/19: Noted to have ascites and volume overload on CXR. Changed from clinda to cefazolin by ID. 01/08/19: Paracentesis performed by Dr. Mendez. Drained 8L clear, yellow fluid. 01/11/19: Taken to the OR by Dr. Solomon for debridement, ostectomy, resection, and placement of wound vac. Pathology again showing osteomyelitis. 01/13/19: Ascites determined to be nephrogenic d/t low SAAG. Taken to OR by Juanito for vac dressing change. 01/17/19: ID recommended continuing cefazolin for total of 42-56 days.
--- NOTE | 2019-02-02 19:51 | CONS ---
GASTROENTEROLOGY CONSULTATION: DATE OF CONSULT: 02/02/19 REQUESTING PROVIDER: America Gomez NP. REASON FOR CONSULT: Ascites and elevated ammonia. HISTORY OF PRESENT ILLNESS: Mr. El is a 73-year-old gentleman with complicated history including diabetes, ESRD on HD, CAD, peripheral vascular disease status post left lower extremity revascularization in December 2018, and osteomyelitis in the left ankle and foot, who was admitted with ongoing issues with subacute osteomyelitis in the left ankle and foot. The patient has been admitted since 12/29/18. He continues on antibiotic for the osteomyelitis. He was noted in mid December to have ascites on imaging and underwent a large volume paracentesis (8L). Fluid studies demonstrated an albumin of 2.1. The serum albumin 2.5. SAAG of 0.4. PMN count was 128. Fluid culture negative. There is a pathology comment stating that there were no malignant cells identified. The patient has been increasingly confused over the last few days. Ammonia was checked and noted to be elevated to 131. He was started on lactulose. Repeat ammonia 77 today. GI asked to weigh in. Interview was limited as Mr. El was sleeping off and on. He was not particularly interested in answering questions. Would only state that he has been in the hospital for a long time. Not sure of year. Denies any GI symptoms. Seem to be fairly short of breath, which he says this is how his breathing has been recently. PAST MEDICAL HISTORY: Includes diabetes, ESRD on dialysis, CAD, osteomyelitis and left foot status post multiple amputation, peripheral vascular disease status post left lower extremity revascularization, and coronary artery disease. PAST SURGICAL HISTORY: Amputation on the left foot for osteomyelitis, umbilical hernia repair, left arm AV fistula, coronary artery disease status post bypass, ureteral stent insertion and removal. MEDICATIONS: Home medications include 1. Bactrim SS 400/80 twice daily. 2. Metoprolol 25 mg every morning. 3. Insulin twice daily. 4. Sevelamer 1600 mg 3 times a day. 5. Gemfibrozil 600 mg twice a day. 6. Atorvastatin 80 daily. 7. Aspirin 325 mg daily. ALLERGIES: No known drug allergies. FAMILY HISTORY: No known GI or liver disease as per chart. SOCIAL HISTORY: As per chart. The patient denies alcohol or drug use. Former smoker. REVIEW OF SYSTEMS: Limited due to patient's interaction and some confusion. Reports some shortness of breath. PHYSICAL EXAMINATION: Vital Signs: Afebrile, heart rate 69, blood pressure 102/51, 93% on room air. General: Chronically ill-appearing gentleman in no acute distress. HEENT: Mucous membranes moist. Cardiovascular: Regular, rate and rhythm. Pulm: Some increased work of breathing appreciated. Mildly coarse breath sounds. Abdomen: Softly distended. Nontender. Extremities: Positive edema bilaterally. DIAGNOSTIC STUDIES/LAB DATA: Recent labs reviewed. The patient has anemia with a hemoglobin of 10.8. INR elevated at 3.95. Comprehensive panel notable for chronic kidney disease with a creatinine of 5.37. AST 14, ALT less than 3, alk-phos 94, bilirubin 0.4, ammonia 77 this morning. Ascites study was as referenced in the HPI. Pertinent imaging reviewed including an abdominal ultrasound from 01/18/19. Diffusely echogenic and coarse liver suggestive of hepatic steatosis. Simple ascites also appreciated. IMPRESSION AND RECOMMENDATIONS: Mr. El is an 73-year-old gentleman with multiple medical comorbidities including diabetes, coronary artery disease, endstage renal disease on dialysis, peripheral vascular disease, left foot and ankle osteomyelitis status post multiple amputations, who is admitted with ongoing issues with osteomyelitis. While admitted, Mr. El was noted to have large volume ascites status post therapeutic paracentesis. Also noted to have increasing confusion with an elevated ammonia. 1. Ascites: Reviewed fluid studies from the paracentesis in the December. SAAG is very low (0.4), which is not consistent with portal hypertension or liver disease-related ascites. I am a bit surprised to see that the ascites fluid protein level was elevated at 4.1. Regardless, I would suspect that the ascites is more likely related to his endstage renal disease. Please discuss management with Nephrology. 2. Elevated ammonia and confusion: The patient's ammonia noted to be elevated yesterday with some improvement today. He was started on lactulose. There is no indication to suggest that the patient had chronic liver disease. As mentioned above, his SAAG is not at all supportive of portal hypertension. I think the more likely cause of his elevated ammonia is again endstage renal disease. It is possible that his ammonia often is elevated to some degree, although it has not been previously checked. Would discuss with nephrology. Thank you very much for this consult. Please contact GI if any additional questions or concerns. [id number]/CPS #: [id number] BHARATI
[2019-02-02] MEDS: Acetaminophen TAB* 325 MG PO PRN (22:20)
[2019-02-02] MEDS: Mirtazapine TAB* 15 MG PO SCH (22:21)
[2019-02-03 06:16] LABS: INR 3.92 (0.82-1.09)
[2019-02-03 06:22] LABS: ABS Eosinophils 0.1 10^3/ul (0-0.6); ABS Lymphocytes 0.6 10^3/ul (1.0-4.8); ABS Monocytes 0.4 10^3/ul (0-0.8); ABS Neutrophils 4.6 10^3/ul (1.5-7.7); Eosinophil % 1.5 %; Hematocrit 27 % (42-52); Hemoglobin 8.5 g/dL (14.0-18.0); Lymphocyte % 10.5 %; Mean Corpuscular HGB Conc 32 g/dL (31-36); Mean Corpuscular Hemoglobin 30 pg (27-31); Mean Corpuscular Volume 93 fL (80-94); Mean Platelet Volume 6.9 fL (7.4-10.4); Platelet Count 185 10^3/uL (150-450); Red Blood Count 2.89 10^6 /uL (4.18-5.48); Red Cell Distribution Width 15 % (10-15); White Blood Count 5.7 10^3/uL (3.5-10.8)
[2019-02-03 06:28] LABS: ALT < 3 U/L (7-52); AST 14 U/L (13-39); Albumin 2.3 g/dL (3.2-5.2); Albumin/Globulin Ratio 0.6 (1-3); Alkaline Phosphatase 94 U/L (34-104); Anion Gap 5 mmol/L (2-11); Blood Urea Nitrogen 23 mg/dL (6-24); CO2 Carbon Dioxide 31 mmol/L (22-32); Calcium 8.1 mg/dL (8.6-10.3); Chloride 98 mmol/L (101-111); EGFR African American 18.7 (>60); EGFR Non-African American 15.4 (>60); Globulin 3.7 g/dL (2-4); Glucose 84 mg/dL (70-100); Potassium 4.5 mmol/L (3.5-5.0); Sodium 134 mmol/L (135-145)
[2019-02-03] MEDS: Aspirin 81 mg CHEW TAB* 81 MG TAB.CHEW PO SCH (08:34)
[2019-02-03] MEDS: Clopidogrel TAB* 75 MG PO SCH (08:34)
[2019-02-03] MEDS: Sevelamer TAB* 800 MG PO SCH ×3 (08:34→17:25)
[2019-02-03] MEDS: Pantoprazole TAB * 40 MG TAB PO SCH (08:35)
[2019-02-03] MEDS: Atorvastatin* 80 MG TAB PO SCH (08:35)
[2019-02-03] MEDS: Gemfibrozil TAB* 600 MG PO SCH ×2 (08:35→21:25)
[2019-02-03] MEDS: ceFAZolin 1 GM ADVAN(*) 1 GM in NS 0.9% 50 ML* 50 ML IVPB SCH (12:54)
--- NOTE | 2019-02-03 13:14 | PN ---
Progress Note - Progress Note Date of Service: 02/03/19 Note: vac changed. Wound not improving, no granulation tissue. If anything worse with dusky skin edges. Some duskiness at great toe as well. >1 week s/p revasc procedure. Wound not improving. d/w pt and also called . discussed continued attempt at limb salvage vs BKA. disc pros/cons of each at length. answered all questions. especially expressed feeling that she thought BKA right course given prolonged problems with foot. Rickie more ambivalent and deferred to . Will plan on L BKA thursday with Dr Solomon unless they change their mind. thanked me for taking the time to go over everything with them and answer all questions. Jesu Fraire MD
--- NOTE | 2019-02-03 17:24 | PN ---
Subjective Date of Service: 02/03/19 Interval History: Afebrile, no acute events overnight mood is desolate/despondent after he was informed by Ortho team of recommendation for above ankle amputation on left given non healing. But agreed. poor appetite coughing INR markely elevated (3.9 last) since 01/20 does not really remember dialysis yesterday, but recalls foot throbbing during. Family History: Unchanged from Admission Social History: Unchanged from Admission Past Medical History: Unchanged from Admission Objective Active Medications: Acetaminophen (Tylenol Tab*) 650 mg PO Q4H PRN PRN Reason: FEVER/PAIN Last Admin: 02/02/19 22:20 Dose: 650 mg Aspirin (Aspirin 81 Mg Chew Tab*) 81 mg PO DAILY [facility] Last Admin: 02/03/19 08:34 Dose: 81 mg Atorvastatin Calcium (Lipitor*) 80 mg PO QAM [facility] Last Admin: 02/03/19 08:35 Dose: 80 mg Benzonatate (Tessalon Cap*) 100 mg PO Q6H PRN PRN Reason: COUGH Last Admin: 01/30/19 23:44 Dose: 100 mg Calcium Carbonate (Tums*) 500 mg PO Q4H PRN PRN Reason: INDIGESTION Last Admin: 12/30/18 14:18 Dose: 500 mg Clopidogrel Bisulfate (Plavix Tab*) 37.5 mg PO DAILY [facility] Stop: 04/26/19 18:59 Last Admin: 02/03/19 08:34 Dose: 37.5 mg Dextrose (D50w Syringe 50 Ml*) 25 gm IV PUSH .FOR FS < 60 - SS PRN PRN Reason: FS < 60 Gemfibrozil (Lopid Tab*) 600 mg PO BID [facility] Last Admin: 02/03/19 08:35 Dose: 600 mg Guaifenesin (Robitussin*) 5 ml PO Q6H PRN PRN Reason: COUGH Last Admin: 01/30/19 20:52 Dose: 5 ml Cefazolin Sodium 1 gm/ Sodium (Chloride) 50 mls @ 200 mls/hr IVPB Q24H [facility] Last Admin: 02/03/19 12:54 Dose: 200 mls/hr Lactulose (Lactulose*) 30 ml PO TID [facility] Last Admin: 02/03/19 12:53 Dose: Not Given Lidocaine/Prilocaine (Emla*) 1 applic TOPICAL MoWeFr [facility] Last Admin: 02/02/19 10:08 Dose: 1 applic Magnesium Hydroxide (Milk Of Magnesia Liq*) 30 ml PO BID PRN PRN Reason: CONSTIPATION Melatonin (Melatonin) 3 mg PO BEDTIME PRN PRN Reason: SLEEP Last Admin: 01/30/19 20:51 Dose: 3 mg Mirtazapine (Remeron Tab*) 7.5 mg PO BEDTIME [facility] Last Admin: 02/02/19 22:21 Dose: 15 mg Ondansetron HCl (Zofran Odt Tab*) 4 mg SL Q6H PRN PRN Reason: NAUSEA/VOMITING Last Admin: 01/31/19 15:24 Dose: 4 mg Pantoprazole Sodium (Protonix Tab*) 40 mg PO DAILY [facility] Last Admin: 02/03/19 08:35 Dose: 40 mg Polyethylene Glycol/Electrolytes (Miralax*) 17 gm PO DAILY PRN PRN Reason: CONSTIPATION Senna (Senokot Tab*) 1 tab PO BEDTIME PRN PRN Reason: CONSTIPATION Last Admin: 01/17/19 09:25 Dose: 1 tab Sevelamer Carbonate (Renvela Tab*) 1,600 mg PO [id number] [facility] Last Admin: 02/03/19 12:53 Dose: 1,600 mg Vital Signs - 8 hr 02/03/19 02/03/19 02/03/19 11:27 11:30 13:31 Temperature 98.1 F Pulse Rate 61 Respiratory 16 16 Rate Blood Pressure 105/58 (mmHg) O2 Sat by Pulse 96 96 Oximetry 02/03/19 16:00 Temperature 98.4 F Pulse Rate 73 Respiratory 18 Rate Blood Pressure 109/58 (mmHg) O2 Sat by Pulse 97 Oximetry Oxygen Devices in Use Now: Nasal Cannula Appearance: NAD. Eyes: No Scleral Icterus Ears/Nose/Mouth/Throat: NL Teeth, Lips, Gums Neck: NL Appearance and Movements; NL JVP Respiratory: Symmetrical Chest Expansion and Respiratory Effort, - - reduced at b/l bases. no rhonchi or wheezing. Cardiovascular: NL Sounds; No Murmurs; No JVD, RRR Abdominal: - - soft but markedly more distended again compared to after the para on 01/08. Extremities: - - left lateral forefoot has wound vac. Skin: No Rash or Ulcers Neurological: Alert and Oriented x 3 Nutrition: Taking PO's Result Diagrams: 02/03/19 06:03 02/03/19 06:03 Additional Lab and Data: Laboratory Results - last 24 hr 02/03/19 02/03/19 02/03/19 06:03 06:03 06:03 WBC 5.7 RBC 2.89 L Hgb 8.5 L Hct 27 L MCV 93 MCH 30 MCHC 32 RDW 15 Plt Count 185 MPV 6.9 L Neut % (Auto) 79.9 Lymph % (Auto) 10.5 Orange % (Auto) 7.3 Eos % (Auto) 1.5 Baso % (Auto) 0.8 Absolute Neuts (auto) 4.6 Absolute Lymphs (auto) 0.6 L Absolute Monos (auto) 0.4 Absolute Eos (auto) 0.1 Absolute Basos (auto) 0.0 Absolute Nucleated RBC 0.0 Nucleated RBC % 0.0 INR (Anticoag Therapy) 3.92 H Sodium 134 L Potassium 4.5 Chloride 98 L Carbon Dioxide 31 Anion Gap 5 BUN 23 Creatinine 3.85 H Est GFR ( Amer) 18.7 Est GFR (Non-Af Amer) 15.4 BUN/Creatinine Ratio 6.0 L Glucose 84 Calcium 8.1 L Total Bilirubin 0.40 AST 14 ALT < 3 L Alkaline Phosphatase 94 Ammonia Total Protein 6.0 L Albumin 2.3 L Globulin 3.7 Albumin/Globulin Ratio 0.6 L 02/03/19 06:03 WBC RBC Hgb Hct MCV MCH MCHC RDW Plt Count MPV Neut % (Auto) Lymph % (Auto) Orange % (Auto) Eos % (Auto) Baso % (Auto) Absolute Neuts (auto) Absolute Lymphs (auto) Absolute Monos (auto) Absolute Eos (auto) Absolute Basos (auto) Absolute Nucleated RBC Nucleated RBC % INR (Anticoag Therapy) Sodium Potassium Chloride Carbon Dioxide Anion Gap BUN Creatinine Est GFR ( Amer) Est GFR (Non-Af Amer) BUN/Creatinine Ratio Glucose Calcium Total Bilirubin AST ALT Alkaline Phosphatase Ammonia 70 H Total Protein Albumin Globulin Albumin/Globulin Ratio Microbiology and Other Data: Microbiology 01/31/19 06:30 Stool Stool Occult Blood (RJ) - Final 01/11/19 15:05 Wound Anaerobic Culture - Final No Growth Day 4 01/11/19 15:05 Foot Left Skin and Soft Tissue MRSA/MSSA (PCR - Final Mrsa Negative S.aureus Positive 01/11/19 15:05 Foot Left Gram Stain - Final 01/11/19 15:05 Foot Left Wound Culture - Final No Growth Day 4 01/08/19 16:28 Peritoneal Fluid Sterile Body Fluid Culture - Final No Growth Day 5 01/08/19 16:28 Peritoneal Fluid Sterile Body Fluid Culture - Final No Growth Day 5 01/06/19 12:01 Wound Anaerobic Culture - Final No Growth Day 4 01/06/19 12:01 Foot Left Skin and Soft Tissue MRSA/MSSA (PCR - Final Mrsa Negative S.aureus Positive 01/06/19 12:01 Foot Left Gram Stain - Final 01/06/19 12:01 Foot Left Wound Culture - Final No Growth Day 4 01/08/19 16:28 Body Fluid Gram Stain - Final 01/03/19 10:13 Foot Left Gram Stain - Final 01/03/19 10:13 Foot Left Wound Culture - Final Staphylococcus Aureus 12/29/18 14:15 Blood Venous Aerobic Blood Culture - Final No Growth Day 5 12/29/18 14:15 Blood Venous Anaerobic Blood Culture - Final No Growth Day 5 12/29/18 16:00 Foot Left Gram Stain - Final 12/29/18 16:00 Foot Left Wound Culture - Final Staphylococcus Aureus Normal Nadja 12/29/18 16:00 Foot Left Skin and Soft Tissue MRSA/MSSA (PCR - Final Mrsa Negative S.aureus Negative 12/29/18 16:00 Foot Left Gram Stain - Final 12/29/18 16:00 Foot Left Wound Culture - Final Normal Nadja Diagnostic Imagin02/11/18 - VL ANK/BRACHIAL INDICES: Ankle-brachial indices: Right: Value (SBP) Index Brachial: 164 Posterior tibialis: Noncompressible Dorsalis pedis: Noncompressible Digit: 56 0.33 Left: Value (SBP) Index Brachial: 172 Posterior tibialis: Noncompressible Dorsalis pedis: Noncompressible Digit: 47 0.27 Doppler waveforms (acquired at rest): In the interrogated lower extremity arteries, Doppler waveforms are monophasic and the bilateral lower extremities with notably reduced amplitude at the right posterior tibial artery. Volume pulse recordings (acquired at rest): Volume pulse recordings measures 17 mm on the right and 35 mm on the left, a significant Assess/Plan/Problems-Billing Assessment: Mr El is a 73 M with PMH of DM2 now controlled with diet, ESRD on HD, CAD, 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 Also with osteo of 5th metatarsal, now s /p L foot I&D and excision of 5th metatarsal base on 01/06. PCR in OR positive for Staph aureus without growth. S/p debridement of L lateral mid-foot with ostectomy, partial cuboid resection, I&D and vac (01/11 + 01/20). Now planned above ankle amputation for 02/07. - Patient Problems (1) Subacute osteomyelitis, left ankle and foot Current Visit: Yes Status: Acute Priority: High Code(s): M86.272 - SUBACUTE OSTEOMYELITIS, LEFT ANKLE AND FOOT SNOMED Code(s): 32575464 Comment: - planned above ankle amputation 02/07 - Wound culture grew MSSA - Blood cultures negative - NWB LLE - Wound vac changed MWF - Pain control for dressing changes and procedures - Continue cefazolin per ID (day -56) (2) Ascites Current Visit: Yes Status: Acute Code(s): R18.8 - OTHER ASCITES SNOMED Code(s): 693554748 Comment: - now s/p 8L paracentesis 01/08, but much of it has returned - SAAG 0.4, PMNs only 128, fluid culture is negative (though on cefazolin at time) - Hep B/C negative; PARISH negative; mitochondria M2 and anti-smooth muscle abs also negative - 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 (3) Coronary artery disease Current Visit: Yes Status: Acute Code(s): I25.10 - ATHSCL HEART DISEASE OF [place] CORONARY ARTERY W/O ANG PCTRS SNOMED Code(s): 76810062 Comment: - Continue aspirin, atorvastatin, gemfibrozil (4) ESRD (end stage renal disease) Current Visit: Yes Status: Acute Priority: Medium Code(s): N18.6 - END STAGE RENAL DISEASE SNOMED Code(s): 65730333 Comment: - Hemodialysis MWF - Fistulogram 01/31 showing some stenosis, now s/p balloon dilation - Continue sevelamer (5) Type 2 diabetes mellitus Current Visit: Yes Status: Chronic Priority: Medium Comment: - A1c 6.4% - No fingersticks given good BG control during this hospitalization (6) Coagulopathy Current Visit: Yes Status: Acute Comment: large jumb in INR back on 01/20. Now close to 4. With oozing from dialysis cath there is some concern for DIC vs liver disease or nutritional deficiencies. fibrinogen, DDimer, PTT, PT/INR. May need mixing study. (7) DVT prophylaxis Current Visit: Yes Status: Acute Priority: Low Code(s): AFH7924 - SNOMED Code(s): 540829194 Comment: - SCDs - Persistent bleeding from foot when on medical DVT ppx; ongoing risk of oozing causing wound vac to fail outweighs risk of DVT at this time, as continued bleeding will prolong hospitalization (8) Full code status Current Visit: Yes Status: Acute Priority: High Code(s): Z78.9 - OTHER SPECIFIED HEALTH STATUS SNOMED Code(s): 420199804 Comment: (9) Hyperammonemia Current Visit: Yes Status: Acute Code(s): E72.20 - DISORDER OF UREA CYCLE METABOLISM, UNSPECIFIED SNOMED Code(s): 9892420 Comment: - Improvedwith lactulose - Increasingly confused from baseline, likely r/t ammonia - Unclear etiology; no evidence of liver disease and ALT is low; this with the combination of ascites (previously thought to be nephrogenic) is concerning for [place] - Appreciate GI consult - Continue lactulose (10) PAD (peripheral artery disease) Current Visit: Yes Status: Acute Code(s): I73.9 - PERIPHERAL VASCULAR DISEASE, UNSPECIFIED SNOMED Code(s): 391624859 Comment: - S/p LLE revascularization 12/27/[address] Cosby - Large contributing factor to left foot osteomyelitis - Continue 37.5mg Plavix (day ), aspirin (11) Passive suicidal ideations Current Visit: Yes Status: Acute Code(s): R45.851 - SUICIDAL IDEATIONS SNOMED Code(s): 2484739 Comment: - Reports from - Patient denies suicidal ideation but reports he has been feeling overwhelmed; he and his state he has been feeling this way for 6 months - Appreciate psych recs. - Continue mirtazapine Status and Disposition: Inpatient. Ortho planning above ankle amputation Wednesday 02/07
[2019-02-03] MEDS: Mirtazapine TAB* 15 MG PO SCH (21:25)
[2019-02-03] MEDS: Senna TAB PO PRN (21:26)
[2019-02-03] MEDS: Ondansetron ODT TAB* 4 MG SL PRN (21:26)
[2019-02-03] MEDS: Calcium Carbonate CHEW TAB* 500 MG (TUMS) PO PRN (21:27)
[2019-02-03] MEDS: Benzonatate CAP* 100 MG PO PRN (21:28)
[2019-02-03] MEDS: Melatonin 3 MG TAB PO PRN (21:28)
[2019-02-03] MEDS: Acetaminophen TAB* 325 MG PO PRN (23:54)
[2019-02-04 08:33] LABS: Activated Partial Thrombo Time 66.5 seconds (26.0-38.0); Fibrinogen 323.2 mg/dL (110.8-404.3)
[2019-02-04 09:34] LABS: ABS Basophils 0.1 10^3/ul (0-0.2); ABS Eosinophils 0.1 10^3/ul (0-0.6); ABS Lymphocytes 0.6 10^3/ul (1.0-4.8); ABS Monocytes 0.4 10^3/ul (0-0.8); ABS Neutrophils 4.6 10^3/ul (1.5-7.7); Eosinophil % 1.4 %; Hematocrit 26 % (42-52); Hemoglobin 8.3 g/dL (14.0-18.0); Lymphocyte % 10.9 %; Mean Corpuscular HGB Conc 32 g/dL (31-36); Mean Corpuscular Hemoglobin 29 pg (27-31); Mean Corpuscular Volume 93 fL (80-94); Mean Platelet Volume 6.8 fL (7.4-10.4); Platelet Count 177 10^3/uL (150-450); Red Blood Count 2.84 10^6 /uL (4.18-5.48); Red Cell Distribution Width 15 % (10-15); White Blood Count 5.7 10^3/uL (3.5-10.8)
[2019-02-04] MEDS: Gemfibrozil TAB* 600 MG PO SCH ×2 (09:53→22:14)
[2019-02-04] MEDS: Sevelamer TAB* 800 MG PO SCH ×3 (09:53→18:08)
--- NOTE | 2019-02-04 10:21 | PN ---
Subjective Interval History: right 1st toe noted by HARMONY Armas to be purple with distal scab. dopplerable but not palpable pulses in right dorsalis pedis feeling awful. larger ulceration to right heel ~1.5cm pain in feet after HD. Family History: Unchanged from Admission Social History: Unchanged from Admission Past Medical History: Unchanged from Admission Objective Active Medications: Acetaminophen (Tylenol Tab*) 650 mg PO Q4H PRN PRN Reason: FEVER/PAIN Last Admin: 02/03/19 23:54 Dose: 650 mg Aspirin (Aspirin 81 Mg Chew Tab*) 81 mg PO DAILY [facility] Last Admin: 02/03/19 08:34 Dose: 81 mg Atorvastatin Calcium (Lipitor*) 80 mg PO QAM [facility] Last Admin: 02/03/19 08:35 Dose: 80 mg Benzonatate (Tessalon Cap*) 100 mg PO Q6H PRN PRN Reason: COUGH Last Admin: 02/03/19 21:28 Dose: 100 mg Calcium Carbonate (Tums*) 500 mg PO Q4H PRN PRN Reason: INDIGESTION Last Admin: 02/03/19 21:27 Dose: 500 mg Clopidogrel Bisulfate (Plavix Tab*) 37.5 mg PO DAILY [facility] Stop: 04/26/19 18:59 Last Admin: 02/03/19 08:34 Dose: 37.5 mg Dextrose (D50w Syringe 50 Ml*) 25 gm IV PUSH .FOR FS < 60 - SS PRN PRN Reason: FS < 60 Gemfibrozil (Lopid Tab*) 600 mg PO BID [facility] Last Admin: 02/04/19 09:53 Dose: Not Given Guaifenesin (Robitussin*) 5 ml PO Q6H PRN PRN Reason: COUGH Last Admin: 01/30/19 20:52 Dose: 5 ml Cefazolin Sodium 1 gm/ Sodium (Chloride) 50 mls @ 200 mls/hr IVPB Q24H [facility] Last Admin: 02/03/19 12:54 Dose: 200 mls/hr Lactulose (Lactulose*) 30 ml PO TID [facility] Last Admin: 02/04/19 09:53 Dose: Not Given Lidocaine/Prilocaine (Emla*) 1 applic TOPICAL MoWeFr [facility] Last Admin: 02/02/19 10:08 Dose: 1 applic Magnesium Hydroxide (Milk Of Magnesia Liq*) 30 ml PO BID PRN PRN Reason: CONSTIPATION Melatonin (Melatonin) 3 mg PO BEDTIME PRN PRN Reason: SLEEP Last Admin: 02/03/19 21:28 Dose: 3 mg Mirtazapine (Remeron Tab*) 7.5 mg PO BEDTIME [facility] Last Admin: 02/03/19 21:25 Dose: 7.5 mg Ondansetron HCl (Zofran Odt Tab*) 4 mg SL Q6H PRN PRN Reason: NAUSEA/VOMITING Last Admin: 02/03/19 21:26 Dose: 4 mg Pantoprazole Sodium (Protonix Tab*) 40 mg PO DAILY [facility] Last Admin: 02/03/19 08:35 Dose: 40 mg Polyethylene Glycol/Electrolytes (Miralax*) 17 gm PO DAILY PRN PRN Reason: CONSTIPATION Senna (Senokot Tab*) 1 tab PO BEDTIME PRN PRN Reason: CONSTIPATION Last Admin: 02/03/19 21:26 Dose: 1 tab Sevelamer Carbonate (Renvela Tab*) 1,600 mg PO 0845,1245,1745 [facility] Last Admin: 02/04/19 09:53 Dose: Not Given Vital Signs - 8 hr 02/04/19 03:09 Temperature 97.6 F Pulse Rate 47 Respiratory 20 Rate Blood Pressure 111/46 (mmHg) O2 Sat by Pulse 99 Oximetry Oxygen Devices in Use Now: Nasal Cannula Appearance: NAD, Eyes: No Scleral Icterus Neck: NL Appearance and Movements; NL JVP Respiratory: Symmetrical Chest Expansion and Respiratory Effort, - - decreased BS at right base. no rhonchi, Cardiovascular: NL Sounds; No Murmurs; No JVD, RRR Abdominal: - - soft, nontender but distended with likely large volume ascites. Skin: - - right 1st toe with puruple discoloration and small necrotic ulceration distally. right heel with 1.5cm ulceration Nutrition: Taking PO's Result Diagrams: 02/04/19 09:18 02/03/19 06:03 Additional Lab and Data: Laboratory Results - last 24 hr 02/04/19 02/04/19 02/04/19 07:11 08:16 09:18 WBC 5.7 RBC 2.84 L Hgb 8.3 L Hct 26 L MCV 93 MCH 29 MCHC 32 RDW 15 Plt Count 177 MPV 6.8 L Neut % (Auto) 80.3 Lymph % (Auto) 10.9 Dixon % (Auto) 6.5 Eos % (Auto) 1.4 Baso % (Auto) 0.9 Absolute Neuts (auto) 4.6 Absolute Lymphs (auto) 0.6 L Absolute Monos (auto) 0.4 Absolute Eos (auto) 0.1 Absolute Basos (auto) 0.1 Absolute Nucleated RBC 0.0 Nucleated RBC % 0.0 APTT 66.5 H PT Patient/Normal 1:1 PT Pat/Norm 1:1 1 Hr PTT Normal Plasma 1 Hr PTT Patient/Normal 1:1 Fibrinogen 323.2 D-Dimer, Quantitative > 1050 H POC Glucose (mg/dL) 78 Ammonia C-Reactive Protein 02/04/19 02/04/19 02/04/19 09:18 09:19 09:19 WBC RBC Hgb Hct MCV MCH MCHC RDW Plt Count MPV Neut % (Auto) Lymph % (Auto) Dixon % (Auto) Eos % (Auto) Baso % (Auto) Absolute Neuts (auto) Absolute Lymphs (auto) Absolute Monos (auto) Absolute Eos (auto) Absolute Basos (auto) Absolute Nucleated RBC Nucleated RBC % APTT 67.7 H PT Patient/Normal 1:1 14.3 H PT Pat/Norm 1:1 1 Hr 14.9 H PTT Normal Plasma 1 Hr 37.7 PTT Patient/Normal 1:1 36.2 Fibrinogen D-Dimer, Quantitative POC Glucose (mg/dL) Ammonia 69 H C-Reactive Protein 136.25 H 02/04/19 02/04/19 11:51 16:35 WBC RBC Hgb Hct MCV MCH MCHC RDW Plt Count MPV Neut % (Auto) Lymph % (Auto) Dixon % (Auto) Eos % (Auto) Baso % (Auto) Absolute Neuts (auto) Absolute Lymphs (auto) Absolute Monos (auto) Absolute Eos (auto) Absolute Basos (auto) Absolute Nucleated RBC Nucleated RBC % APTT PT Patient/Normal 1:1 PT Pat/Norm 1:1 1 Hr PTT Normal Plasma 1 Hr PTT Patient/Normal 1:1 Fibrinogen D-Dimer, Quantitative POC Glucose (mg/dL) 91 88 Ammonia C-Reactive Protein Microbiology and Other Data: Microbiology 01/31/19 06:30 Stool Stool Occult Blood (RJ) - Final 01/11/19 15:05 Wound Anaerobic Culture - Final No Growth Day 4 01/11/19 15:05 Foot Left Skin and Soft Tissue MRSA/MSSA (PCR - Final Mrsa Negative S.aureus Positive 01/11/19 15:05 Foot Left Gram Stain - Final 01/11/19 15:05 Foot Left Wound Culture - Final No Growth Day 4 01/08/19 16:28 Peritoneal Fluid Sterile Body Fluid Culture - Final No Growth Day 5 01/08/19 16:28 Peritoneal Fluid Sterile Body Fluid Culture - Final No Growth Day 5 01/06/19 12:01 Wound Anaerobic Culture - Final No Growth Day 4 01/06/19 12:01 Foot Left Skin and Soft Tissue MRSA/MSSA (PCR - Final Mrsa Negative S.aureus Positive 01/06/19 12:01 Foot Left Gram Stain - Final 01/06/19 12:01 Foot Left Wound Culture - Final No Growth Day 4 01/08/19 16:28 Body Fluid Gram Stain - Final 01/03/19 10:13 Foot Left Gram Stain - Final 01/03/19 10:13 Foot Left Wound Culture - Final Staphylococcus Aureus 12/29/18 14:15 Blood Venous Aerobic Blood Culture - Final No Growth Day 5 12/29/18 14:15 Blood Venous Anaerobic Blood Culture - Final No Growth Day 5 12/29/18 16:00 Foot Left Gram Stain - Final 12/29/18 16:00 Foot Left Wound Culture - Final Staphylococcus Aureus Normal Nadja 12/29/18 16:00 Foot Left Skin and Soft Tissue MRSA/MSSA (PCR - Final Mrsa Negative S.aureus Negative 12/29/18 16:00 Foot Left Gram Stain - Final 12/29/18 16:00 Foot Left Wound Culture - Final Normal Nadja Diagnostic Imagin02/11/18 - VL ANK/BRACHIAL INDICES: Ankle-brachial indices: Right: Value (SBP) Index Brachial: 164 Posterior tibialis: Noncompressible Dorsalis pedis: Noncompressible Digit: 56 0.33 Left: Value (SBP) Index Brachial: 172 Posterior tibialis: Noncompressible Dorsalis pedis: Noncompressible Digit: 47 0.27 Doppler waveforms (acquired at rest): In the interrogated lower extremity arteries, Doppler waveforms are monophasic and the bilateral lower extremities with notably reduced amplitude at the right posterior tibial artery. Volume pulse recordings (acquired at rest): Volume pulse recordings measures 17 mm on the right and 35 mm on the left, a significant Assess/Plan/Problems-Billing Assessment: Mr El is a 73 M with PMH of DM2 now controlled with diet, ESRD on HD, CAD, 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 Also with osteo of 5th metatarsal, now s /p L foot I&D and excision of 5th metatarsal base on 01/06. PCR in OR positive for Staph aureus without growth. S/p debridement of L lateral mid-foot with ostectomy, partial cuboid resection, I&D and vac (01/11 + 01/20). Now planned above ankle amputation for 02/07. Right 1st toe with distal ulceration. 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 Would send for cytology and likely repeat SAAG, cell counts, cx etc. (3) Coagulopathy Current Visit: Yes Status: Acute Comment: large jump in INR back on 01/20. Reportedly on repeat todat was 5.23. With oozing from dialysis cath there is some concern for DIC vs liver disease or nutritional deficiencies ( or interaction with cefazolin which can sometimes reduce vitamin K absorbtion. fibrinogen wnl, DDimer elevated, PTT also elevated F/u mixing study. gave 2.5mg po vitamin K. repeat INR daily. (4) Coronary artery disease Current Visit: Yes Status: Acute Code(s): I25.10 - ATHSCL HEART DISEASE OF [place] CORONARY ARTERY W/O ANG PCTRS SNOMED Code(s): 62922387 Comment: - Continue aspirin, atorvastatin, gemfibrozil (5) ESRD (end stage renal disease) Current Visit: Yes Status: Acute Priority: Medium Code(s): N18.6 - END STAGE RENAL DISEASE SNOMED Code(s): 49850676 Comment: - Hemodialysis MWF - Fistulogram 01/31 showing some stenosis, now s/p balloon dilation - Continue sevelamer (6) Type 2 diabetes mellitus Current Visit: Yes Status: Chronic Priority: Medium Comment: - A1c 6.4% - POC qachs, SSI (7) DVT prophylaxis Current Visit: Yes Status: Acute Priority: Low Code(s): QFQ8895 - SNOMED Code(s): 838541931 Comment: - SCDs - Persistent bleeding from foot when on medical DVT ppx; ongoing risk of oozing causing wound vac to fail outweighs risk of DVT at this time, as continued bleeding will prolong hospitalization (8) Full code status Current Visit: Yes Status: Acute Priority: High Code(s): Z78.9 - OTHER SPECIFIED HEALTH STATUS SNOMED Code(s): 636704598 Comment: (9) Hyperammonemia Current Visit: Yes Status: Acute Code(s): E72.20 - DISORDER OF UREA CYCLE METABOLISM, UNSPECIFIED SNOMED Code(s): 5298152 Comment: - Improvedwith lactulose - Increasingly confused from baseline, likely r/t ammonia - Unclear etiology; no evidence of liver disease and ALT is low; this with the combination of ascites (previously thought to be nephrogenic) is concerning for MCKINNON - Appreciate GI consult - Continue lactulose (10) PAD (peripheral artery disease) Current Visit: Yes Status: Acute Code(s): I73.9 - PERIPHERAL VASCULAR DISEASE, UNSPECIFIED SNOMED Code(s): 619645661 Comment: - S/p LLE revascularization 12/27/[address] Cosby - Large contributing factor to left foot osteomyelitis - Continue 37.5mg Plavix (day ), aspirin - now with right 1st toe ulceration, s/p arterial duplex ultrasound showing athersclerolorsis and diminished flows, increased velocities. Consider reconsult Dr. Cosby. Palliative care consult also placed to help guide GOC discussions as Jose is already somewhat despondant about his prospects given yet another surgery planned. (11) Passive suicidal ideations Current Visit: Yes Status: Acute Code(s): R45.851 - SUICIDAL IDEATIONS SNOMED Code(s): 4613592 Comment: - Reports from - Patient denies suicidal ideation but reports he has been feeling overwhelmed; he and his state he has been feeling this way for 6 months - Appreciate psych recs. - Continue mirtazapine Status and Disposition: Inpatient. Ortho planning above ankle amputation Wednesday 02/07
[2019-02-04] MEDS ORDERED: EPOETIN ALFA-EPBX * 10,000 UNIT/ML VIAL IV ONE (11:45)
[2019-02-04] MEDS ORDERED: Heparin DIALYSIS ONLY(*) 1,000 UNITS/ML VIAL DIALYSIS ONE (12:00)
[2019-02-04 13:47] LABS: Activated Partial Thrombo Time 67.7 seconds (26.0-38.0)
[2019-02-04] MEDS ORDERED: Phytonadione Oral Solution* 5 MG/25 ML UDC PO ONE (14:26)
[2019-02-04] MEDS: LIDOCAINE TOPICAL SCH (15:10)
[2019-02-04] MEDS: PRILOCAINE TOPICAL SCH (15:10)
[2019-02-04 15:28] LABS: PT/After 1 Hour Incubation 14.9 seconds (9.4-12.5)
[2019-02-04] MEDS: ceFAZolin 1 GM ADVAN(*) 1 GM in NS 0.9% 50 ML* 50 ML IVPB SCH (15:52)
[2019-02-04] MEDS: Clopidogrel TAB* 75 MG PO SCH (15:53)
[2019-02-04] MEDS: Aspirin 81 mg CHEW TAB* 81 MG TAB.CHEW PO SCH (15:53)
[2019-02-04] MEDS: Atorvastatin* 80 MG TAB PO SCH (15:53)
[2019-02-04] MEDS: Pantoprazole TAB * 40 MG TAB PO SCH (15:57)
[2019-02-04] MEDS: HYDROmorphone TAB* 2 MG PO PRN (17:08)
[2019-02-04] MEDS: Mirtazapine TAB* 15 MG PO SCH (22:14)
[2019-02-05] MEDS: guaiFENesin LIQ* 100 MG/5 ML UDC PO PRN ×2 (03:03→08:50)
[2019-02-05] MEDS: Gemfibrozil TAB* 600 MG PO SCH ×3 (08:54→20:06)
[2019-02-05] MEDS: Atorvastatin* 80 MG TAB PO SCH ×2 (08:54→09:05)
[2019-02-05] MEDS: Clopidogrel TAB* 75 MG PO SCH ×2 (08:54→09:05)
[2019-02-05] MEDS: Aspirin 81 mg CHEW TAB* 81 MG TAB.CHEW PO SCH ×2 (08:54→09:05)
[2019-02-05] MEDS: Sevelamer TAB* 800 MG PO SCH ×3 (08:55→18:24)
[2019-02-05] MEDS: Pantoprazole TAB * 40 MG TAB PO SCH ×2 (08:55→09:05)
[2019-02-05] MEDS: Benzonatate CAP* 100 MG PO PRN (09:01)
[2019-02-05 13:41] LABS: INR 1.52 (0.82-1.09)
[2019-02-05] MEDS: ceFAZolin 1 GM ADVAN(*) 1 GM in NS 0.9% 50 ML* 50 ML IVPB SCH (14:42)
[2019-02-05] MEDS ORDERED: NS 0.9% 500 ML* 500 ML IV ONE (16:00)
[2019-02-05] MEDS: HYDROmorphone TAB* 2 MG PO PRN (16:43)
--- NOTE | 2019-02-05 18:01 | PN ---
Subjective Date of Service: 02/05/19 Interval History: feels poorly, coughing a lot, refused meds. was not eating consented to paracentesis as we have been discussing for last few days. 2.7L drained. Flow proved to be very positional and he is so debilitated that he could not role on his side unassisted. got 500cc bolus just prior to the procedure, having some BMs INR improved 1o 1.5 from 5.2 after 2.5mg po vitamin k yesterday Family History: Unchanged from Admission Social History: Unchanged from Admission Past Medical History: Unchanged from Admission Objective Active Medications: Acetaminophen (Tylenol Tab*) 650 mg PO Q4H PRN PRN Reason: FEVER/PAIN Last Admin: 02/03/19 23:54 Dose: 650 mg Aspirin (Aspirin 81 Mg Chew Tab*) 81 mg PO DAILY [facility] Last Admin: 02/05/19 09:05 Dose: Not Given Atorvastatin Calcium (Lipitor*) 80 mg PO QAM [facility] Last Admin: 02/05/19 09:05 Dose: Not Given Benzonatate (Tessalon Cap*) 100 mg PO Q6H PRN PRN Reason: COUGH Last Admin: 02/03/19 21:28 Dose: 100 mg Calcium Carbonate (Tums*) 500 mg PO Q4H PRN PRN Reason: INDIGESTION Last Admin: 02/03/19 21:27 Dose: 500 mg Clopidogrel Bisulfate (Plavix Tab*) 37.5 mg PO DAILY [facility] Stop: 04/26/19 18:59 Last Admin: 02/05/19 09:05 Dose: Not Given Dextrose (D50w Syringe 50 Ml*) 25 gm IV PUSH .FOR FS < 60 - SS PRN PRN Reason: FS < 60 Gemfibrozil (Lopid Tab*) 600 mg PO BID [facility] Last Admin: 02/05/19 09:04 Dose: Not Given Guaifenesin (Robitussin*) 5 ml PO Q6H PRN PRN Reason: COUGH Last Admin: 02/05/19 08:50 Dose: 5 ml Hydromorphone HCl (Dilaudid Tab*) 1 mg PO Q6H PRN PRN Reason: PAIN Last Admin: 02/05/19 16:43 Dose: 1 mg Cefazolin Sodium 1 gm/ Sodium (Chloride) 50 mls @ 200 mls/hr IVPB Q24H [facility] Last Admin: 02/05/19 14:42 Dose: 200 mls/hr Lactulose (Lactulose*) 30 ml PO TID [facility] Last Admin: 02/05/19 14:42 Dose: 30 ml Lidocaine/Prilocaine (Emla*) 1 applic TOPICAL MoWeFr [facility] Last Admin: 02/04/19 15:10 Dose: Not Given Magnesium Hydroxide (Milk Of Magnesia Liq*) 30 ml PO BID PRN PRN Reason: CONSTIPATION Melatonin (Melatonin) 3 mg PO BEDTIME PRN PRN Reason: SLEEP Last Admin: 02/03/19 21:28 Dose: 3 mg Mirtazapine (Remeron Tab*) 7.5 mg PO BEDTIME [facility] Last Admin: 02/04/19 22:14 Dose: 7.5 mg Ondansetron HCl (Zofran Odt Tab*) 4 mg SL Q6H PRN PRN Reason: NAUSEA/VOMITING Last Admin: 02/03/19 21:26 Dose: 4 mg Pantoprazole Sodium (Protonix Tab*) 40 mg PO DAILY [facility] Last Admin: 02/05/19 09:05 Dose: Not Given Polyethylene Glycol/Electrolytes (Miralax*) 17 gm PO DAILY PRN PRN Reason: CONSTIPATION Senna (Senokot Tab*) 1 tab PO BEDTIME PRN PRN Reason: CONSTIPATION Last Admin: 02/03/19 21:26 Dose: 1 tab Sevelamer Carbonate (Renvela Tab*) 1,600 mg PO 0845,1245,1745 [facility] Last Admin: 02/05/19 13:10 Dose: Not Given Vital Signs - 8 hr 02/05/19 02/05/19 02/05/19 10:11 11:30 15:36 Temperature 97.2 F Pulse Rate 72 Respiratory 20 18 Rate Blood Pressure 111/42 (mmHg) O2 Sat by Pulse 92 100 100 Oximetry 02/05/19 02/05/19 16:00 16:43 Temperature 97.0 F Pulse Rate 68 Respiratory 20 18 Rate Blood Pressure 92/38 (mmHg) O2 Sat by Pulse 98 Oximetry Oxygen Devices in Use Now: Nasal Cannula Appearance: chronically ill appearing Respiratory: - - crackles right base, coughing frequently Cardiovascular: NL Sounds; No Murmurs; No JVD, RRR Abdominal: - - soft nontender distended Extremities: No Edema, - - left lateral forefoot resection with wound vac. right 1st toe purple with ulcer Skin: No Rash or Ulcers Neurological: - - drowsy, oriened to name, situation. thinks year 2016. Nutrition: Taking PO's Result Diagrams: 02/04/19 09:18 02/03/19 06:03 Additional Lab and Data: Laboratory Results - last 24 hr 02/04/19 02/04/19 02/04/19 07:11 08:16 09:18 WBC 5.7 RBC 2.84 L Hgb 8.3 L Hct 26 L MCV 93 MCH 29 MCHC 32 RDW 15 Plt Count 177 MPV 6.8 L Neut % (Auto) 80.3 Lymph % (Auto) 10.9 Blair % (Auto) 6.5 Eos % (Auto) 1.4 Baso % (Auto) 0.9 Absolute Neuts (auto) 4.6 Absolute Lymphs (auto) 0.6 L Absolute Monos (auto) 0.4 Absolute Eos (auto) 0.1 Absolute Basos (auto) 0.1 Absolute Nucleated RBC 0.0 Nucleated RBC % 0.0 APTT 66.5 H PT Patient/Normal 1:1 PT Pat/Norm 1:1 1 Hr PTT Normal Plasma 1 Hr PTT Patient/Normal 1:1 Fibrinogen 323.2 D-Dimer, Quantitative > 1050 H POC Glucose (mg/dL) 78 Ammonia C-Reactive Protein 02/04/19 02/04/19 02/04/19 09:18 09:19 09:19 WBC RBC Hgb Hct MCV MCH MCHC RDW Plt Count MPV Neut % (Auto) Lymph % (Auto) Blair % (Auto) Eos % (Auto) Baso % (Auto) Absolute Neuts (auto) Absolute Lymphs (auto) Absolute Monos (auto) Absolute Eos (auto) Absolute Basos (auto) Absolute Nucleated RBC Nucleated RBC % APTT 67.7 H PT Patient/Normal 1:1 14.3 H PT Pat/Norm 1:1 1 Hr 14.9 H PTT Normal Plasma 1 Hr 37.7 PTT Patient/Normal 1:1 36.2 Fibrinogen D-Dimer, Quantitative POC Glucose (mg/dL) Ammonia 69 H C-Reactive Protein 136.25 H 02/04/19 02/04/19 11:51 16:35 WBC RBC Hgb Hct MCV MCH MCHC RDW Plt Count MPV Neut % (Auto) Lymph % (Auto) Blair % (Auto) Eos % (Auto) Baso % (Auto) Absolute Neuts (auto) Absolute Lymphs (auto) Absolute Monos (auto) Absolute Eos (auto) Absolute Basos (auto) Absolute Nucleated RBC Nucleated RBC % APTT PT Patient/Normal 1:1 PT Pat/Norm 1:1 1 Hr PTT Normal Plasma 1 Hr PTT Patient/Normal 1:1 Fibrinogen D-Dimer, Quantitative POC Glucose (mg/dL) 91 88 Ammonia C-Reactive Protein Microbiology and Other Data: Microbiology 01/31/19 06:30 Stool Stool Occult Blood (RJ) - Final 01/11/19 15:05 Wound Anaerobic Culture - Final No Growth Day 4 01/11/19 15:05 Foot Left Skin and Soft Tissue MRSA/MSSA (PCR - Final Mrsa Negative S.aureus Positive 01/11/19 15:05 Foot Left Gram Stain - Final 01/11/19 15:05 Foot Left Wound Culture - Final No Growth Day 4 01/08/19 16:28 Peritoneal Fluid Sterile Body Fluid Culture - Final No Growth Day 5 01/08/19 16:28 Peritoneal Fluid Sterile Body Fluid Culture - Final No Growth Day 5 01/06/19 12:01 Wound Anaerobic Culture - Final No Growth Day 4 01/06/19 12:01 Foot Left Skin and Soft Tissue MRSA/MSSA (PCR - Final Mrsa Negative S.aureus Positive 01/06/19 12:01 Foot Left Gram Stain - Final 01/06/19 12:01 Foot Left Wound Culture - Final No Growth Day 4 01/08/19 16:28 Body Fluid Gram Stain - Final 01/03/19 10:13 Foot Left Gram Stain - Final 01/03/19 10:13 Foot Left Wound Culture - Final Staphylococcus Aureus 12/29/18 14:15 Blood Venous Aerobic Blood Culture - Final No Growth Day 5 12/29/18 14:15 Blood Venous Anaerobic Blood Culture - Final No Growth Day 5 12/29/18 16:00 Foot Left Gram Stain - Final 12/29/18 16:00 Foot Left Wound Culture - Final Staphylococcus Aureus Normal Nadja 12/29/18 16:00 Foot Left Skin and Soft Tissue MRSA/MSSA (PCR - Final Mrsa Negative S.aureus Negative 12/29/18 16:00 Foot Left Gram Stain - Final 12/29/18 16:00 Foot Left Wound Culture - Final Normal Nadja Diagnostic Imagin02/11/18 - VL ANK/BRACHIAL INDICES: Ankle-brachial indices: Right: Value (SBP) Index Brachial: 164 Posterior tibialis: Noncompressible Dorsalis pedis: Noncompressible Digit: 56 0.33 Left: Value (SBP) Index Brachial: 172 Posterior tibialis: Noncompressible Dorsalis pedis: Noncompressible Digit: 47 0.27 Doppler waveforms (acquired at rest): In the interrogated lower extremity arteries, Doppler waveforms are monophasic and the bilateral lower extremities with notably reduced amplitude at the right posterior tibial artery. Volume pulse recordings (acquired at rest): Volume pulse recordings measures 17 mm on the right and 35 mm on the left, a significant Assess/Plan/Problems-Billing Assessment: Mr El is a 73 M with PMH of DM2 now controlled with diet, ESRD on HD, CAD, 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 Also with osteo of 5th metatarsal, now s /p L foot I&D and excision of 5th metatarsal base on 01/06. PCR in OR positive for Staph aureus without growth. S/p debridement of L lateral mid-foot with ostectomy, partial cuboid resection, I&D and vac (01/11 + 01/20). Now planned above ankle amputation for 02/07. Right 1st toe with distal ulceration. Worsening coagulopathy, improved with vitamin k. - Patient Problems (1) Subacute osteomyelitis, left ankle and foot Current Visit: Yes Status: Acute Priority: High Code(s): M86.272 - SUBACUTE OSTEOMYELITIS, LEFT ANKLE AND FOOT SNOMED Code(s): 62435737 Comment: - planned above ankle amputation 02/07 - Wound culture grew MSSA - Blood cultures negative - NWB LLE - Wound vac changed MWF - Pain control for dressing changes and procedures - Continue cefazolin per ID (day 30/-56), can't get PICC given ESRD with fistula (2) Ascites Current Visit: Yes Status: Acute Code(s): R18.8 - OTHER ASCITES SNOMED Code(s): 247095216 Comment: - s/p 8L paracentesis 01/08, but much returned so repeat diagnostic/therapeutic para today 02/05 with 2.7L out, f/u cell count, culture, albumin, afb culture, cytology, ADA, m tuberculosis pcr -Initial para: SAAG 0.4, PMNs only 128, fluid culture is negative (though on cefazolin at time) - Hep B/C negative; PARISH negative; mitochondria M2 and anti-smooth muscle abs also negative - Likely nephrogenic ascites; less likely cirrhosis given low SAAG - Appreciate GI consult (3) Coagulopathy Current Visit: Yes Status: Acute Comment: large jump in INR back on 01/20. 5.23. With oozing from dialysis cath there is some concern for DIC vs liver disease or nutritional deficiencies ( or interaction with cefazolin which can sometimes reduce vitamin K absorbtion. fibrinogen wnl, DDimer elevated, PTT also elevated mixing study showed e/o inhibitor of PT but corrected PTT. got 2.5mg po vitamin K 02/04 with improvement to 1.5 repeat INR daily. (4) Coronary artery disease Current Visit: Yes Status: Acute Code(s): I25.10 - ATHSCL HEART DISEASE OF [place] CORONARY ARTERY W/O ANG PCTRS SNOMED Code(s): 73650518 Comment: - Continue aspirin, atorvastatin, gemfibrozil (5) ESRD (end stage renal disease) Current Visit: Yes Status: Acute Priority: Medium Code(s): N18.6 - END STAGE RENAL DISEASE SNOMED Code(s): 31014780 Comment: - Hemodialysis MWF - Fistulogram 01/31 showing some stenosis, now s/p balloon dilation - Continue sevelamer (6) Type 2 diabetes mellitus Current Visit: Yes Status: Chronic Priority: Medium Comment: - A1c 6.4% - POC qachs, SSI (7) DVT prophylaxis Current Visit: Yes Status: Acute Priority: Low Code(s): [id number] - SNOMED Code(s): 152776116 Comment: - SCDs - Persistent bleeding from foot when on medical DVT ppx; ongoing risk of oozing causing wound vac to fail outweighs risk of DVT at this time, as continued bleeding will prolong hospitalization (8) Full code status Current Visit: Yes Status: Acute Priority: High Code(s): Z78.9 - OTHER SPECIFIED HEALTH STATUS SNOMED Code(s): 118655650 Comment: (9) Hyperammonemia Current Visit: Yes Status: Acute Code(s): E72.20 - DISORDER OF UREA CYCLE METABOLISM, UNSPECIFIED SNOMED Code(s): 3088196 Comment: - Improvedwith lactulose - Increasingly confused from baseline, likely r/t ammonia - Unclear etiology; no evidence of liver disease and ALT is low; this with the combination of ascites (previously thought to be nephrogenic) is concerning for MCKINNON - Appreciate GI consult - Continue lactulose (10) PAD (peripheral artery disease) Current Visit: Yes Status: Acute Code(s): I73.9 - PERIPHERAL VASCULAR DISEASE, UNSPECIFIED SNOMED Code(s): 822445305 Comment: - S/p LLE revascularization 12/27/[address] Cosby - Large contributing factor to left foot osteomyelitis - Continue 37.5mg Plavix (day ), aspirin - now with right 1st toe ulceration, s/p arterial duplex ultrasound showing athersclerolorsis and diminished flows, increased velocities. Consider reconsult Dr. Cosby. Palliative care consult also placed to help guide GOC discussions as Jose is already somewhat despondant about his prospects given yet another surgery planned. (11) Passive suicidal ideations Current Visit: Yes Status: Acute Code(s): R45.851 - SUICIDAL IDEATIONS SNOMED Code(s): 9034374 Comment: - Reports from - Patient denies suicidal ideation but reports he has been feeling overwhelmed; he and his state he has been feeling this way for 6 months - Appreciate psych recs. - Continue mirtazapine Status and Disposition: Inpatient. Ortho planning above ankle amputation Wednesday 02/07
--- NOTE | 2019-02-05 18:04 | OP ---
Operative Report - Blank - Operative Report Date of Operation: 02/05/19 Note: Paracentesis Procedure report Time out performed 5cc of 1% lidocaine used for analgesia. Site: Right lower quadrant US Guidance used 2.7L total clear yellow ascites removed cultures, gram stain, albumin, cell counts, ADA, AFB smear, M Tubercuolosis PCR , cytology
[2019-02-05 19:24] LABS: INR 5.23 (0.82-1.09)
[2019-02-05] MEDS: Mirtazapine TAB* 15 MG PO SCH (20:05)
[2019-02-05] MEDS: Ondansetron ODT TAB* 4 MG SL PRN (20:06)
[2019-02-05 22:19] LABS: Body Fluid Source Peritonial Fluid
[2019-02-05 23:10] LABS: Body Fluid Mono 79 %; Body Fluid Other Cells 1
[2019-02-06] MEDS ORDERED: fentaNYL* 50 MCG/ML 2 ML VIAL (100 MCG VIAL) IV SLOW PU ONE (00:10)
[2019-02-06] MEDS ORDERED: Etomidate* 2 MG/ML 20 ML VIAL (40 MG) ONE (00:32)
[2019-02-06] MEDS ORDERED: Succinylcholine* 20 MG/ML 10 ML VIAL ONE (00:32)
[2019-02-06] MEDS ORDERED: Norepinephrine VIAL* 1 MG/ML 4 ML VIAL ONE (00:48)
[2019-02-06] MEDS: Norepinephrine VIAL* 8 MG in NS 0.9% 500 ML* 492 ML IV SCH (00:50)
[2019-02-06] MEDS ORDERED: Propofol* 100 ML ONE (01:07)
[2019-02-06] MEDS ORDERED: fentaNYL* 50 MCG/ML 2 ML VIAL (100 MCG VIAL) ONE (01:10)
[2019-02-06] MEDS: Propofol* 100 ML IV SCH ×3 (01:40→10:16)
[2019-02-06 02:01] LABS: INR 1.54 (0.82-1.09)
[2019-02-06 02:04] LABS: ABS Lymphocytes 0.2 10^3/ul (1.0-4.8); ABS Monocytes 0.4 10^3/ul (0-0.8); ABS Neutrophils 13.4 10^3/ul (1.5-7.7); Eosinophil % 0.1 %; Hematocrit 30 % (42-52); Hemoglobin 9.1 g/dL (14.0-18.0); Lymphocyte % 1.7 %; Mean Corpuscular HGB Conc 31 g/dL (31-36); Mean Corpuscular Hemoglobin 29 pg (27-31); Mean Corpuscular Volume 94 fL (80-94); Mean Platelet Volume 7.3 fL (7.4-10.4); Nucleated Red Blood Cells % 0.1; Platelet Count 196 10^3/uL (150-450); Red Blood Count 3.16 10^6 /uL (4.18-5.48); Red Cell Distribution Width 15 % (10-15); White Blood Count 14.1 10^3/uL (3.5-10.8)
[2019-02-06 02:11] LABS: ALT < 3 U/L (7-52); AST 17 U/L (13-39); Albumin 2.4 g/dL (3.2-5.2); Albumin/Globulin Ratio 0.6 (1-3); Alkaline Phosphatase 96 U/L (34-104); Anion Gap 10 mmol/L (2-11); BUN/Creatinine Ratio 4.6 (8-20); Blood Urea Nitrogen 22 mg/dL (6-24); CO2 Carbon Dioxide 26 mmol/L (22-32); Calcium 7.9 mg/dL (8.6-10.3); Chloride 98 mmol/L (101-111); EGFR African American 14.6 (>60); EGFR Non-African American 12.1 (>60); Globulin 3.7 g/dL (2-4); Glucose 96 mg/dL (70-100); Potassium 4.9 mmol/L (3.5-5.0); Sodium 134 mmol/L (135-145); Total Protein 6.1 g/dL (6.4-8.9)
[2019-02-06 02:13] LABS: Troponin I 0.03 ng/mL (<0.04)
--- NOTE | 2019-02-06 02:22 | PN ---
Hospitalist Progress Note Date of Service: 02/06/19 ABC Documentation and Cross Cover note ABC: Code called at 00:15 Patient found unresponsive in room after removing O2, initially no pulse was felt and CPR started by nursing. Provider and ICU arrive to room, Zoll placed to chest showing sinus rhytym, patient has palpable pulse, unclear if ever pulseless, he is obtunded, with PEERLA, not responsive to voice or command, does withdraw from pain GCS 6, noted to have short shallow breaths and intubated by ER attending for airway protection. Initial VS SBP 140/90, HR 80s sinus, satting 80s on RA, RR 16, he was transferred to ICU and the following summary: Only meds given during ABC were for RSI (Succ/Etomidate) HD39 73 M PMH IDDM, ESRD on HD, severe PVD w hx of L foot osteo s/p 2nd-5th ray amputation, CAD s/p CABG 10/2017 (Last echo 02/2018, EF 60-65% with LVH and mildly dilated LA, normal RVSP), likely GONZALO on 2L NC QHS, who presented 12/29/18 to the ER directly from infectious disease outpatient with worsening cellulitis in L foot, His hospitalization has been long with the notable events -01/06 OR Underwent left foot I&D and excision of left 5th metatarsal base. Pathology report shows acute and chronic osteomyelitis. PCR in OR positive for Staph aureus without growth, cefazolin. -01/07-01/08: Post operative complication of volume overload and new ascites noted. Paracentesis performed drained 8L clear, yellow fluid, low SAAG, thought to be nephrogenic with no e/o portal HTN (see ultimate GI consult 02/02) -01/11: OR by Dr. Solomon for debridement, ostectomy, resection, and placement of wound vac. Pathology again showing osteomyelitis, poor wound healing -01/20:OR with vac exchange, poor wound healing, debridement -01/24: Poor output from AV Fistula in Dialysis as they attempt to take more volume, prompting fistulogram which ultimately showed patency -01/26: Poor wound healing on L foot-IR performs antegrade left common femoral arteriotomy, LLE arteriography, revascularization of mostly occluded left NURSES ASSISTANT, balloon angioplasty of left SFA, tibioperoneal trunk and left NURSES ASSISTANT. -01/27: Passive suicidality, psych consulted -02/01: Encephalopathic and hyperammonia noted, started lactulose, improved MS from 02/02-02/04 -02/04 Poor wound healing continues, decision for L BKA was done with family, scheduled for 02/07--Incidentally INR elevated to 5, got Vit K -02/05 Repeat para done 2.7 L removed. 500cc bolus given s/p para -02/06 Unresponsive, hypoxic, ABC Upon transfer to the ICU patient dropped blood pressure to 70/40, persistently low, unable to rec bolus 2/2 to HD status and clinically hypervol, started levophed periphreally improved to systolics 130s, attempted wean off but again hypotensive. TLC placed R femoral After pressures improved pt more restless, low dose propofol started Data: PE: Neuro: Intubated PEERLA Still obtunded on exam, some arm movements spontaneously and withdraws to pain CV: 2/6 SM RRR Pulm: Diffuse rhonchi,no wheeze, thick yellow sputum in tube GI: Belly soft NT + fluid wave, bruising at prior para spot, LLQ w prior suture in place Ext: UE: Poor pulses cool, mottled, dopplerable radial pulses blt, LE with cool mottled lower ext L LE with prior amputation wrapped, dopplerable pulses BLT, RLE with soft tissue swelling on R toe, appears dusky, noted Imaging shows CXR volume overload in blt lungs, opacity/aspiration RML AXR: Proper placement of lines and tubes Labs: New leukocytosis, ammonia elevated to 129 EKG: NSR no e/o new ischemia Impression -Acute Hypoxic/hypercarbic resp failure 2/2 to aspiration pneumonitis vs pna -Hypotension, no e/o end organ damage, pos -AMS 2/2 Hyperammonia, now elevated to >120 -LLE Osteomyelitis -Severe PVD -ESRD on HD with volume overload -Ascites thought to be nephrogenic s/p x2 paracentesis with no e/o complication or infection -DM2, well controlled Neuro: -Sedated, propofol low dose, did get IV push of Fent during TLC -AMS: Hyperammonia, increase lactulose to QID, dose now Pulm: -Hypoxic/hypercarbic Resp Failure: Intubated on pressure support for triggering high pressures, initial ABG hypercarbic, repeat pending -Aspiration pneumonitis/pna- Add flagyl to Cefazolin, can be d/c if more of a pneomnitis picture CV: -No e/o acute ischemia, trop and EKG unremarkable -Persistent hypotension, likely 2/2 to PNA > cardiogenic source, last echo 03/13 , consider repeating if not clinically improving ---Continue levophed Neph: -ESRD on MWF dilalysis, fistulogram patent -elevated ammonia, lactulose, consider further w/u for non hepatic source elevated ammonia GI: Ascites, low SAAG-> no e/o acute live decomp -Start TF if unable to wean ID: -Osteo and aspiration PNA, Cefazolin and Flagyl, broaden if needed, sputum cx pending Heme: -New leukocytosis, reactive -Elevated INR x1, s/p vit K oral several days ago, presumed nutrtion -On DAPT for recent angiplasty Lines/Tubes: L arm AVF R Fem TLC 02/05 Intubated during ABC 02/05 PPx: Chlorhex, PPI -Appears team has been holding DVT ppx 2/2 oozing at prior angiogram site. Plt stable, INR stable, reasonable to restart SQH q 8
[2019-02-06] MEDS: Chlorhexidine MOUTHWASH 0.12%* 15 ML UDC TOPICAL SCH ×5 (03:27→19:49)
--- NOTE | 2019-02-06 04:24 | PRO ---
PROCEDURE NOTE: DATE OF PROCEDURE: 02/06/19 TIME OF PROCEDURE: Approximately 12:30 a.m. PROCEDURE: Triple-lumen catheter. INDICATION: Hypertension. ANESTHESIA USE: None. DESCRIPTION OF PROCEDURE: A time-out was completed verifying correct patient, procedure site, positioning, and special equipment which was not applicable. The patient's right femoral area was prepped and draped in the usual sterile fashion. Lidocaine was not used secondary to the mental status of the patient. A triple- lumen central line was introduced over a wire via the Seldinger technique and then sutured into place and good blood flow was noted in all ports. The patient tolerated that procedure well. An abdominal radiograph and chest x-ray were ordered to assess for pneumothorax and catheter placement, which showed no complications and catheter tip in IVC. Complications were none and blood loss was minimal. The patient's consented for the procedure over the phone as the patient was unable to consent secondary to his clinical status. [id number]/CPS #: [id number] MTDD
[2019-02-06] MEDS: metroNIDAZOLE IV 500 MG/100ML* 500 MG/100 ML BAG IVPB SCH ×2 (04:56→17:53)
[2019-02-06] MEDS: Sevelamer TAB* 800 MG PO SCH ×3 (09:00→17:57)
[2019-02-06 09:24] LABS: INR 1.66 (0.82-1.09)
[2019-02-06 09:30] LABS: ALT < 3 U/L (7-52); AST 15 U/L (13-39); Albumin 2.2 g/dL (3.2-5.2); Albumin/Globulin Ratio 0.6 (1-3); Alkaline Phosphatase 100 U/L (34-104); Anion Gap 10 mmol/L (2-11); BUN/Creatinine Ratio 5.4 (8-20); Blood Urea Nitrogen 26 mg/dL (6-24); CO2 Carbon Dioxide 26 mmol/L (22-32); Calcium 7.6 mg/dL (8.6-10.3); Chloride 97 mmol/L (101-111); EGFR African American 14.3 (>60); EGFR Non-African American 11.8 (>60); Globulin 3.5 g/dL (2-4); Glucose 85 mg/dL (70-100); Potassium 4.5 mmol/L (3.5-5.0); Sodium 133 mmol/L (135-145); Total Protein 5.7 g/dL (6.4-8.9)
[2019-02-06 09:32] LABS: Troponin I 0.03 ng/mL (<0.04)
[2019-02-06] MEDS: cefTRIAXone(*) 1 GM in NS 0.9% 50 ML* 50 ML IVPB SCH (09:34)
[2019-02-06] MEDS: Aspirin 81 mg CHEW TAB* 81 MG TAB.CHEW PO SCH (10:17)
[2019-02-06] MEDS: Clopidogrel TAB* 75 MG PO SCH (10:18)
[2019-02-06] MEDS: Atorvastatin* 80 MG TAB PO SCH (10:18)
[2019-02-06] MEDS: Gemfibrozil TAB* 600 MG PO SCH ×2 (10:18→22:00)
--- NOTE | 2019-02-06 11:01 | OP ---
Operative Report - Blank - Operative Report Date of Operation: 02/06/19 Note: A code was called on Rickie overnight or unresponsiveness and hypoxia and he was transferred to the ICU. Per discussion with hospitalist service, etiology unclear. He was scheduled for a left below the knee amputation tomorrow with Dr Solomon, which will likely need to be canceled. If this is not the case, please keep him n.p.o. at midnight. Jesu Fraire MD
--- NOTE | 2019-02-06 14:23 | PN ---
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 Vital Signs: Temp Pulse Resp BP SpO2 FiO2 37.5 C 87 20 122/51 96 30 02/06/19 13:16 02/06/19 13:16 02/06/19 06:00 02/06/19 13:16 02/06/19 13:16 02/06 13:02 Physical Exam: Gen: sedated on vent, appears weak and malnourished HEENT: NCAT, PERRL Lungs: coarse entray bilat Cardiac: S1S2 irreg Abdomen: soft, mild dist, +BS, small ascites, no rebound Extremities: chronically ischemic LE Neuro: rouses vaguely through sedation, withdraws x 4 Fluid Balance (Past 24 Hours): I= O= Net Intake & Output 02/04/19 02/05/19 02/06/19 02/07/19 06:59 06:59 06:59 06:59 Intake Total 430 1025 294 Output Total 0 100 75 0 Balance 430 925 219 0 Weight 111.856 kg 108.726 kg 94.3 kg Intake: IV Fluids 70 68 ABX - CEFAZOLIN 50 NS (0.45%) 20 NS (0.9%) 68 IVPB 55 50 ABX - CEFAZOLIN 55 50 Medicated IV 146 CC - Norepinephrine/ 73 Levophed CC - Propofol/Diprivan 73 Oral 360 970 0 NG Tube Irrigate Amount 30 Output: NG Tube Drainage Amount 75 Urine 0 100 0 0 Other: Date of Last Bowel 02/06/19 Movement # Bowel Movements 0 0 1 Estimated Stool Amount Medium # Voids 0 0 0 ADLs: Meal Record Start: 12/29/18 12: 45 Freq: DAILY@0900,1400,1800 Status: Complete Protocol: Created 12/29/18 12:45 System (Rec: 12/29/18 12:45 System SW-C03) Document 12/29/18 14:00 JJP4110 (Rec: 12/29/18 16:08 VLX5762 MED-C09) Document 12/29/18 18:00 VWF2362 (Rec: 12/29/18 19:00 JXW4532 MED-C09) Document 12/30/18 08:45 ROE7696 (Rec: 12/30/18 08:46 EBZ7173 MED-C11) Document 12/30/18 13:03 LNT2700 (Rec: 12/30/18 13:03 QMI7719 MED-C15) Document 12/30/18 18:00 FCR3193 (Rec: 12/30/18 18:14 GHB8184 MED-C11) Document 12/31/18 14:00 RBM8186 (Rec: 12/31/18 16:23 HRU0140 MED-C09) Document 12/31/18 18:00 HGO4111 (Rec: 12/31/18 18:33 DTA4587 MED-C09) Document 01/01/19 09:00 BNW7932 (Rec: 01/01/19 09:52 EPW9976 MED-C09) Document 01/01/19 14:00 ERU3778 (Rec: 01/01/19 15:59 RNQ4418 MED-C09) Document 01/01/19 18:00 TKY9419 (Rec: 01/01/19 18:03 WBG5652 MED-C09) Document 01/02/19 09:00 XYP9146 (Rec: 01/02/19 12:35 FZS2598 MED-C11) Document 01/02/19 13:35 AGB9455 (Rec: 01/02/19 13:36 GWD4316 MED-C11) Document 01/02/19 18:00 IFF6934 (Rec: 01/02/19 18:48 PBV6542 MED-C11) Document 01/03/19 09:00 ZCU7178 (Rec: 01/03/19 09:36 ZNO5845 MED-C02) Document 01/03/19 14:00 JRM8730 (Rec: 01/03/19 14:02 OOF3198 MED-C02) Document 01/03/19 18:00 JYS6469 (Rec: 01/03/19 18:38 KZG7438 MED-C02) Document 01/04/19 08:46 UDI7676 (Rec: 01/04/19 08:46 UFV1670 MED-C02) Document 01/04/19 14:00 WHN0641 (Rec: 01/04/19 14:02 ZTC7214 MED-C02) Document 01/04/19 17:55 IMK7150 (Rec: 01/04/19 17:55 WXC1024 MED-C11) Document 01/05/19 09:00 LPB8430 (Rec: 01/05/19 09:40 GZH5316 MED-C09) Document 01/05/19 14:00 LIZ2659 (Rec: 01/05/19 16:45 XNZ0499 MED-C09) Document 01/05/19 18:00 WVS2986 (Rec: 01/05/19 18:44 SDY0815 MED-C09) Document 01/06/19 09:00 YQP2194 (Rec: 01/06/19 09:04 PLA0918 MED-C05) Document 01/06/19 14:00 LSA4608 (Rec: 01/06/19 14:52 NOL6362 MED-C05) Document 01/06/19 17:49 LIM1301 (Rec: 01/06/19 17:50 XXZ9116 MED-C11) Document 01/07/19 09:00 DPV5105 (Rec: 01/07/19 12:17 RHU4543 MED-C11) Document 01/07/19 14:00 IKO2176 (Rec: 01/07/19 14:22 EBO9963 MED-C11) Document 01/07/19 17:36 JEC0156 (Rec: 01/07/19 17:36 ZMH2096 MED-C09) Document 01/08/19 09:00 PIK2457 (Rec: 01/08/19 17:22 QTE3140 MED-C02) Document 01/08/19 14:00 DQW7767 (Rec: 01/08/19 17:22 HVX2311 MED-C02) Document 01/08/19 18:00 CMY4714 (Rec: 01/08/19 18:32 NUQ1274 MED-C02) Document 01/09/19 09:00 KDO2128 (Rec: 01/09/19 09:10 RFL0506 MED-C11) Document 01/09/19 13:49 TXM7958 (Rec: 01/09/19 13:49 PLY1062 MED-C09) Document 01/09/19 17:51 ELV0334 (Rec: 01/09/19 17:51 PUV5940 MED-C11) Document 01/10/19 09:00 YGL6542 (Rec: 01/10/19 09:15 TAF8469 MED-C15) Document 01/10/19 14:00 QPH0652 (Rec: 01/10/19 14:55 MBG5855 MED-C09) Document 01/10/19 18:00 NDY8892 (Rec: 01/10/19 18:10 EEQ1278 MED-C15) Document 01/11/19 09:00 KKS7173 (Rec: 01/11/19 09:12 ZOS1176 MED-C09) Document 01/11/19 13:37 JXD3711 (Rec: 01/11/19 13:37 RNB0666 MED-C11) Document 01/11/19 18:00 YVG5351 (Rec: 01/11/19 18:41 CGI7630 MED-C09) Document 01/12/19 09:00 NRS1068 (Rec: 01/12/19 09:39 LRV9648 MED-C11) Document 01/12/19 18:00 WPK6628 (Rec: 01/12/19 19:18 ALN1077 MED-C09) Document 01/13/19 09:00 XLZ4826 (Rec: 01/13/19 14:15 JRC5152 MED-C11) Document 01/13/19 18:00 WRQ1236 (Rec: 01/13/19 22:54 ION9661 MED-C11) Document 01/14/19 09:00 PCG7764 (Rec: 01/14/19 13:29 CNF3292 MED-C09) Document 01/14/19 13:48 GXK1246 (Rec: 01/14/19 13:51 SOC9086 MED-C11) Document 01/14/19 18:00 TIE7572 (Rec: 01/14/19 20:28 OII9544 MED-C02) Document 01/15/19 09:00 BSD5245 (Rec: 01/15/19 09:33 HIA4663 MED-C15) Document 01/15/19 13:11 TDL6421 (Rec: 01/15/19 13:11 HYY8412 MED-M01) ADLs: Meal Record Start: 01/16/19 09: 01 Freq: 0900,1400,1800 Status: Complete Protocol: Document 01/16/19 09:01 QLP5360 (Rec: 01/16/19 09:02 SDA7071 MED-C11) Created 01/16/19 09:01 MCN6833 (Rec: 01/16/19 09:01 JEL4752 MED-C11) Document 01/16/19 18:25 NHP6185 (Rec: 01/16/19 18:25 TJO3463 MED-C11) Document 01/17/19 09:25 CJN8563 (Rec: 01/17/19 09:25 FYF5688 MED-C11) Document 01/19/19 09:56 DXD0744 (Rec: 01/19/19 09:56 AMF0940 MED-C09) Document 01/19/19 14:27 DSU5088 (Rec: 01/19/19 14:28 UGF9538 MED-C15) Document 01/19/19 18:00 PPK9509 (Rec: 01/19/19 18:51 UVO1590 MED-C11) Document 01/20/19 09:00 KXA3228 (Rec: 01/20/19 12:36 CJT3074 MED-C11) Document 01/20/19 14:00 QSL0358 (Rec: 01/20/19 18:57 KNV7384 MED-C11) Document 01/20/19 18:00 ZMZ5243 (Rec: 01/20/19 19:10 EZB3490 MED-C09) Document 01/21/19 14:38 NKQ0106 (Rec: 01/21/19 14:39 JFS9133 MED-C09) Document 01/21/19 18:00 LIO2819 (Rec: 01/21/19 18:07 HYC5210 MED-C11) Document 01/22/19 09:00 BUO5252 (Rec: 01/22/19 09:03 JJI0989 MED-C15) Document 01/22/19 13:09 IJC8898 (Rec: 01/22/19 13:09 PMU3459 MED-C15) Document 01/22/19 18:00 KXB4733 (Rec: 01/22/19 18:28 WKQ9616 MED-C15) Document 01/23/19 09:00 RDE3811 (Rec: 01/23/19 09:55 NAF5912 MED-C02) Document 01/23/19 14:00 SRV1243 (Rec: 01/23/19 14:27 OAF8687 MED-C09) Document 01/23/19 18:00 PIW0260 (Rec: 01/23/19 18:23 KXX2799 MED-C09) Document 01/24/19 09:00 LPP7332 (Rec: 01/24/19 14:20 TYL4827 MED-C11) Document 01/24/19 14:00 IEW9189 (Rec: 01/24/19 16:21 NPJ2970 MED-C11) Document 01/24/19 18:00 HRU7218 (Rec: 01/24/19 18:15 EAU4044 MED-C09) Document 01/25/19 09:00 CNV9679 (Rec: 01/25/19 10:14 TGO7937 MED-C09) Document 01/25/19 14:00 XSE4622 (Rec: 01/25/19 14:45 WNN8544 MED-C09) Document 01/25/19 18:00 IKK5063 (Rec: 01/25/19 18:53 PDG7952 MED-C11) Document 01/26/19 09:00 XOV6933 (Rec: 01/26/19 09:20 OPA1161 MED-C11) Document 01/26/19 18:00 RTO8089 (Rec: 01/26/19 18:53 ZNX8193 MED-C11) Document 01/27/19 14:00 SAD9905 (Rec: 01/27/19 16:47 BOJ6976 MED-C14) Document 01/27/19 18:00 ZIR9996 (Rec: 01/27/19 20:53 BUQ8960 MED-C09) Document 01/28/19 09:00 UGP6765 (Rec: 01/28/19 10:31 NLX4752 MED-C09) Document 01/28/19 16:59 XVC4024 (Rec: 01/28/19 17:01 UKC7788 MED-C11) Document 01/29/19 09:00 BFH7947 (Rec: 01/29/19 16:18 ULF0294 MED-C05) Document 01/29/19 14:00 HME9570 (Rec: 01/29/19 14:28 ZDZ9115 MED-C09) Document 01/29/19 18:00 DHT8711 (Rec: 01/29/19 19:07 BRY1580 MED-C11) Document 01/30/19 09:00 IJL1242 (Rec: 01/30/19 17:23 KND0192 MED-C09) Document 01/30/19 14:00 KJK4530 (Rec: 01/30/19 17:26 MHB1245 MED-C09) Document 01/30/19 18:00 KCK3441 (Rec: 01/30/19 21:48 APO0977 MEDL-C01) Document 01/31/19 09:00 PWL3951 (Rec: 01/31/19 11:28 LLV1854 MED-C02) Document 01/31/19 14:00 TBG0340 (Rec: 01/31/19 15:20 ZZG3617 MED-C11) Document 01/31/19 18:00 WMR9052 (Rec: 01/31/19 21:44 OFF6235 MED-C15) Document 02/01/19 09:00 HQI3617 (Rec: 02/01/19 10:34 HRY9080 MED-C09) Document 02/01/19 14:39 KEA1376 (Rec: 02/01/19 14:40 RZG5297 MED-C15) Document 02/01/19 18:00 AHI8594 (Rec: 02/01/19 18:39 SIX6400 MED-C09) Document 02/02/19 09:00 NFN1604 (Rec: 02/02/19 09:28 FDJ2985 MED-C11) Document 02/02/19 14:00 XVR9835 (Rec: 02/02/19 14:01 TRI5806 MED-C02) Document 02/02/19 16:11 XQU4319 (Rec: 02/02/19 16:12 QSX4792 MED-C02) Document 02/02/19 18:00 SAR5778 (Rec: 02/02/19 19:09 MSN1346 MED-C15) Document 02/03/19 09:00 QRD3824 (Rec: 02/03/19 09:14 GHY2696 MED-C09) Document 02/03/19 14:00 ZFG4180 (Rec: 02/03/19 14:51 UVX7139 MED-C02) Document 02/03/19 18:00 GTM0558 (Rec: 02/03/19 20:10 WCQ0103 MED-C02) Document 02/04/19 09:00 QYO9612 (Rec: 02/04/19 18:19 CWP4749 MED-C09) Document 02/04/19 14:00 COF4211 (Rec: 02/04/19 18:19 QJI5255 MED-C09) Document 02/04/19 18:00 KUY4371 (Rec: 02/04/19 19:06 UNS4953 MED-C09) Document 02/05/19 09:00 DDY9522 (Rec: 02/05/19 10:20 NFV6028 MED-C11) Document 02/05/19 14:00 YJW9621 (Rec: 02/05/19 19:03 DIT9792 MED-C11) Document 02/05/19 18:00 HLE6984 (Rec: 02/05/19 19:04 WIM2804 MED-C11) ADLs: Meal Record Start: 02/06/19 02: 10 Freq: 09,13,18 Status: Active Protocol: Created 02/06/19 02:10 MGN5348 (Rec: 02/06/19 02:10 SCD7061 ICU-C12) Document 02/06/19 09:00 GBI3714 (Rec: 02/06/19 13:44 VMW1851 ICU-C07) Document 02/06/19 13:00 FGU8589 (Rec: 02/06/19 13:44 LAF7205 ICU-C07) Intake and Output Start: 12/29/18 12: 45 Freq: DAILY@0600,1400,2200 Status: Complete Protocol: Created 12/29/18 12:45 System (Rec: 12/29/18 12:45 System SW-C03) Document 12/29/18 14:00 AYJ6337 (Rec: 12/29/18 16:08 TFQ2026 MED-C09) Document 12/29/18 22:00 FHU8988 (Rec: 12/30/18 00:23 TND0997 MED-C13) Document 12/30/18 05:23 AMR7884 (Rec: 12/30/18 05:24 WDU0149 MED-C13) Document 12/30/18 14:00 BZS3849 (Rec: 12/30/18 14:10 AKV5768 MED-C09) Document 12/30/18 21:39 GDT7685 (Rec: 12/30/18 21:40 TEE9837 MED-C15) Document 12/31/18 06:00 FCN1481 (Rec: 12/31/18 06:09 WMM9391 MED-C15) Document 12/31/18 14:00 WET4591 (Rec: 12/31/18 16:23 AHJ0897 MED-C09) Document 12/31/18 22:00 SUE9015 (Rec: 12/31/18 23:09 JTP3033 MED-C11) Document 01/01/19 05:26 VOZ8840 (Rec: 01/01/19 05:26 AZH2689 MED-M04) Document 01/01/19 06:30 HOH8643 (Rec: 01/01/19 06:31 QHU2540 MED-C09) Document 01/01/19 14:00 UEV7137 (Rec: 01/01/19 16:46 XQL7679 MED-C09) Document 01/01/19 22:00 IRT7559 (Rec: 01/01/19 22:23 AGH2092 CRM-C09) Document 01/02/19 05:39 COJ7064 (Rec: 01/02/19 05:40 SAR3451 MED-C02) Document 01/02/19 12:35 KCE3935 (Rec: 01/02/19 12:35 RTM7689 MED-C11) Document 01/02/19 21:51 LOS5710 (Rec: 01/02/19 21:52 QOI7635 MED-C15) Document 01/03/19 05:18 KZK2897 (Rec: 01/03/19 05:29 DOP0147 MED-C15) Document 01/03/19 14:00 MMS4741 (Rec: 01/03/19 14:03 MFC5269 MED-C02) Document 01/03/19 16:04 YNQ2984 (Rec: 01/03/19 16:04 JME4847 MED-C02) Document 01/03/19 22:00 LHG8333 (Rec: 01/03/19 22:59 JVD0056 MED-C09) Document 01/04/19 05:56 WBL2386 (Rec: 01/04/19 05:57 BZX6083 MED-C09) Document 01/04/19 08:46 HNV6529 (Rec: 01/04/19 08:46 CJQ0720 MED-C02) Document 01/04/19 14:00 XOJ4355 (Rec: 01/04/19 14:02 EHG6228 MED-C02) Document 01/04/19 22:00 SZC3693 (Rec: 01/04/19 23:47 YZJ9047 MED-C02) Document 01/05/19 06:00 XET7580 (Rec: 01/05/19 06:17 BJU1177 MED-C02) Document 01/05/19 14:00 BNO9084 (Rec: 01/05/19 16:45 FBI8056 MED-C09) Document 01/05/19 22:00 QFI6688 (Rec: 01/05/19 22:41 LUB8651 MED-C16) Document 01/06/19 05:53 APM8892 (Rec: 01/06/19 05:54 KQR6398 MED-C07) Document 01/06/19 14:00 IMQ4788 (Rec: 01/06/19 14:52 KSP7016 MED-C05) Document 01/06/19 22:00 CAW7353 (Rec: 01/06/19 22:55 IVV5793 MED-C15) Document 01/07/19 05:35 LUI2477 (Rec: 01/07/19 05:35 IDZ8846 MED-C02) Document 01/07/19 14:00 HTO4978 (Rec: 01/07/19 14:22 GOR6818 MED-C11) Document 01/07/19 17:39 UBM1015 (Rec: 01/07/19 17:39 HBQ7734 MED-C11) Document 01/07/19 22:00 PBU5180 (Rec: 01/07/19 22:33 ZTM3876 MED-C09) Document 01/08/19 05:12 HVU0974 (Rec: 01/08/19 05:14 SHO4782 MED-M01) Document 01/08/19 14:00 GBA4497 (Rec: 01/08/19 17:27 YWO3880 MED-C02) Document 01/08/19 22:00 RLT3300 (Rec: 01/08/19 22:33 MEH0472 MED-C09) Document 01/09/19 05:12 RPC8218 (Rec: 01/09/19 05:13 UFG6990 MED-C09) Document 01/09/19 14:00 VJL1710 (Rec: 01/09/19 14:01 KMR8749 MED-C09) Document 01/09/19 22:00 VUQ5160 (Rec: 01/09/19 23:22 YYR2781 MED-C09) Document 01/10/19 05:40 FMP4043 (Rec: 01/10/19 05:41 UQL1585 MED-C09) Document 01/10/19 14:00 LZB5910 (Rec: 01/10/19 14:05 TXO4241 MED-C15) Document 01/10/19 22:00 CGG3230 (Rec: 01/11/19 04:17 KHZ1376 MED-C05) Document 01/11/19 04:16 IUX0183 (Rec: 01/11/19 04:17 FWN7797 MED-C05) Document 01/11/19 22:00 KUP1865 (Rec: 01/11/19 22:43 LDQ3910 MED-C05) Document 01/12/19 06:00 QCD7867 (Rec: 01/12/19 06:28 YRT9433 MED-C42) Document 01/12/19 14:00 BJH0870 (Rec: 01/12/19 19:18 HDA4023 MED-C09) Document 01/12/19 22:00 DLT8907 (Rec: 01/12/19 22:52 FGU8072 MED-C07) Document 01/13/19 05:31 AVR8809 (Rec: 01/13/19 05:32 OMJ9792 MED-C07) Document 01/13/19 21:30 MYM3406 (Rec: 01/14/19 03:43 CCI0332 MED-C15) Document 01/13/19 21:30 FLN2823 (Rec: 01/14/19 03:44 EZJ6350 MED-C15) Document 01/13/19 22:00 XYP0002 (Rec: 01/13/19 22:55 QZS3918 MED-C11) Document 01/14/19 05:23 QZY6476 (Rec: 01/14/19 05:25 FCZ8376 MED-C02) Document 01/14/19 13:48 QHI4856 (Rec: 01/14/19 13:51 NZB8074 MED-C11) Document 01/14/19 22:00 ZMH5979 (Rec: 01/14/19 23:32 QRS3166 MED-C02) Document 01/15/19 06:00 DPO2536 (Rec: 01/15/19 06:26 GMV1988 MED-C09) Document 01/15/19 14:00 UUN7256 (Rec: 01/15/19 14:09 WTG4157 MED-C15) Document 01/15/19 16:30 UDX5664 (Rec: 01/15/19 18:49 RDB3371 CRM-C09) Document 01/15/19 22:00 LRJ7985 (Rec: 01/15/19 22:38 HCZ4511 MED-C15) Document 01/16/19 06:00 LLK9932 (Rec: 01/16/19 06:03 UES7588 MED-C15) Document 01/16/19 13:35 IUY5439 (Rec: 01/16/19 13:36 PYM5144 MED-C11) Document 01/16/19 21:37 OQG4215 (Rec: 01/16/19 21:38 CNJ1214 MED-C15) Document 01/17/19 05:11 WHR6779 (Rec: 01/17/19 05:11 PYK2611 MED-C15) Document 01/17/19 14:00 QSG0640 (Rec: 01/17/19 15:10 ZHG0474 MED-C09) Document 01/17/19 22:00 SUS0323 (Rec: 01/18/19 00:58 IND9099 MED-C09) Document 01/18/19 04:29 LTG5920 (Rec: 01/18/19 04:32 UFT3650 MED-C09) Document 01/18/19 14:00 BIV0907 (Rec: 01/18/19 18:22 QWJ3514 MED-C11) Document 01/18/19 21:38 VTX1548 (Rec: 01/18/19 21:39 RJT4449 MED-C11) Document 01/19/19 06:00 FRP2648 (Rec: 01/19/19 06:40 OAP1849 MED-C11) Document 01/19/19 14:00 EBB0647 (Rec: 01/19/19 14:26 CYW6082 MED-C09) Document 01/19/19 22:00 VTA5928 (Rec: 01/19/19 22:29 HEC9707 MED-C11) Document 01/20/19 06:00 VUI5297 (Rec: 01/20/19 06:11 GGC0372 MED-C11) Document 01/20/19 14:00 XJO4236 (Rec: 01/20/19 18:58 TSP6284 MED-C11) Document 01/20/19 21:11 PPW9492 (Rec: 01/20/19 21:12 CNN6582 MED-C09) Document 01/21/19 05:23 QBX5915 (Rec: 01/21/19 05:24 LCL2532 MED-C09) Document 01/21/19 14:38 BIA9719 (Rec: 01/21/19 14:39 QDG0929 MED-C09) Document 01/21/19 21:12 WTI6162 (Rec: 01/21/19 21:15 QHQ5129 MED-C11) Document 01/22/19 06:00 IKJ3487 (Rec: 01/22/19 06:59 PBI1821 MED-C11) Document 01/22/19 14:00 NBF4474 (Rec: 01/22/19 15:03 BRE9417 MED-C15) Document 01/22/19 22:00 NWX3682 (Rec: 01/23/19 03:03 MYS1956 MED-C09) Document 01/23/19 05:58 QDN6356 (Rec: 01/23/19 05:59 BUS3610 MED-C09) Document 01/23/19 14:00 WTL5801 (Rec: 01/23/19 14:27 KZN9120 MED-C09) Document 01/23/19 22:00 XZH0643 (Rec: 01/23/19 22:28 HJI8414 MED-C09) Document 01/24/19 04:51 NGR7248 (Rec: 01/24/19 04:52 DXW8896 MED-C04) Document 01/24/19 14:00 XQY0272 (Rec: 01/24/19 16:21 DFH2787 MED-C11) Document 01/24/19 22:37 VMD7244 (Rec: 01/24/19 22:37 WDR6760 MED-M18) Document 01/25/19 05:41 TGB7619 (Rec: 01/25/19 05:43 PJJ8448 MED-C09) Document 01/25/19 14:00 XSX2723 (Rec: 01/25/19 14:45 YDR8508 MED-C09) Document 01/25/19 22:00 LSK7959 (Rec: 01/25/19 22:51 ILQ1702 MED-C09) Document 01/26/19 05:46 OKH4155 (Rec: 01/26/19 05:48 JLW5967 MED-C09) Document 01/26/19 14:00 BSG3735 (Rec: 01/26/19 14:15 TSR3149 MED-C02) Document 01/26/19 22:00 TSG8026 (Rec: 01/26/19 23:50 PXQ0482 MED-C09) Document 01/27/19 05:37 DUK3450 (Rec: 01/27/19 05:37 EWQ6939 MED-C14) Document 01/27/19 14:00 CRP8783 (Rec: 01/27/19 16:47 YVV1121 MED-C14) Document 01/27/19 22:00 PIA9583 (Rec: 01/27/19 22:36 DGU9037 MED-C12) Document 01/28/19 05:08 LQA4842 (Rec: 01/28/19 05:09 GJU4276 MED-C09) Document 01/28/19 22:00 POR2105 (Rec: 01/29/19 00:00 DYF7412 MED-C09) Document 01/29/19 04:56 RJL3986 (Rec: 01/29/19 04:57 KLD2110 MED-C09) Document 01/29/19 12:30 IDH0048 (Rec: 01/29/19 18:21 FSK0182 MED-C05) Document 01/29/19 14:00 SPJ1049 (Rec: 01/29/19 19:06 BBW8421 MED-C11) Document 01/29/19 21:46 WNB9111 (Rec: 01/29/19 21:48 GRK9764 MED-C11) Document 01/30/19 05:48 SUP0484 (Rec: 01/30/19 05:49 CLO3018 MED-C11) Document 01/30/19 14:00 NEV5840 (Rec: 01/30/19 17:26 YPU0934 MED-C09) Document 01/30/19 22:00 RRO1509 (Rec: 01/30/19 22:33 JWB5125 MED-C15) Document 01/31/19 06:00 NNA0145 (Rec: 01/31/19 06:34 LBS1400 MED-C15) Document 01/31/19 14:00 RZS7130 (Rec: 01/31/19 15:20 LTD3143 MED-C11) Document 01/31/19 22:00 RFG0662 (Rec: 01/31/19 23:24 RPX4052 MED-C15) Document 02/01/19 05:43 XCP5283 (Rec: 02/01/19 05:43 QUO5897 MED-C05) Document 02/01/19 08:00 PNE7253 (Rec: 02/01/19 08:33 TNH1890 MED-C11) Document 02/01/19 14:39 DFP8123 (Rec: 02/01/19 14:40 TPD2546 MED-C15) Document 02/01/19 22:00 MVG5482 (Rec: 02/01/19 22:17 HVT9450 MED-C09) Document 02/02/19 05:26 SKG5522 (Rec: 02/02/19 05:28 LLQ8176 MED-C09) Document 02/02/19 14:00 OGE2888 (Rec: 02/02/19 15:38 YBS2520 MED-C15) Document 02/02/19 22:00 NEB3739 (Rec: 02/02/19 22:04 MVJ0378 MED-C04) Document 02/03/19 05:54 WHJ1608 (Rec: 02/03/19 06:19 ADO0269 MED-C11) Document 02/03/19 14:00 GHO8887 (Rec: 02/03/19 14:54 QTF8482 MED-C02) Document 02/03/19 22:00 VUP7642 (Rec: 02/03/19 22:25 SNF6935 MED-C09) Document 02/04/19 05:58 NAR8297 (Rec: 02/04/19 06:00 MXL8614 MED-C09) Document 02/04/19 14:00 BQD2423 (Rec: 02/04/19 18:27 [id number] MED-C09) Document 02/05/19 03:15 [id number] (Rec: 02/05/19 03:15 [id number] [facility]-M16) Document 02/05/19 06:00 [id number] (Rec: 02/05/19 06:01 [id number] MED-C02) Document 02/05/19 14:00 [id number] (Rec: 02/05/19 19:03 [id number] MED-C11) Document 02/05/19 21:32 [id number] (Rec: 02/05/19 21:33 [id number] MED-C04) Intake and Output Start: 02/06/19 02: 10 Freq: Q1HR Status: Active Protocol: Created 02/06/19 02:10 [id number] (Rec: 02/06/19 02:10 [id number] ICU-C12) Document 02/06/19 03:00 [id number] (Rec: 02/06/19 03:07 [id number] ICU-C25) Document 02/06/19 04:00 [id number] (Rec: 02/06/19 06:10 [id number] ICU-C25) Document 02/06/19 05:00 [id number] (Rec: 02/06/19 06:11 [id number] ICU-C25) Document 02/06/19 06:00 [id number] (Rec: 02/06/19 06:14 [id number] ICU-C25) Document 02/06/19 08:00 [id number] (Rec: 02/06/19 12:58 [id number] ICU-C07) Document 02/06/19 12:00 [id number] (Rec: 02/06/19 12:58 [id number] ICU-C07) Labs: Laboratory Results - last 24 hr 02/04/19 02/04/19 02/05/19 09:19 09:19 18:12 WBC RBC Hgb Hct MCV MCH MCHC RDW Plt Count MPV Neut % (Auto) Lymph % (Auto) [place] % (Auto) Eos % (Auto) Baso % (Auto) Absolute Neuts (auto) Absolute Lymphs (auto) Absolute Monos (auto) Absolute Eos (auto) Absolute Basos (auto) Absolute Nucleated RBC Nucleated RBC % INR (Anticoag Therapy) 5.23 H* Factor II 14 L Factor V 120 Patient Temperature ABG pH ABG pH (Temp Correct) ABG pCO2 ABG pCO2 (Temp Corrct ABG pO2 ABG pO2 (Temp Correct ABG HCO3 ABG O2 Saturation ABG Base Excess Respiration Rate O2 Delivery Device Ventilator Type Vent Mode FiO2 Inspiratory Time PEEP Pressure Support Pressure Control EPAP IPAP BiPAP Sodium Potassium Chloride Carbon Dioxide Anion Gap BUN Creatinine Est GFR ( Amer) Est GFR (Non-Af Amer) BUN/Creatinine Ratio Glucose Lactic Acid Calcium Total Bilirubin AST ALT Alkaline Phosphatase Ammonia Troponin I Total Protein Albumin Globulin Albumin/Globulin Ratio Fluid Source Peritonial fluid Fluid Volume 5.0 Fluid Color Yellow Fluid Appearance Clear Fluid WBC 386 Fluid RBC 167 Fluid Tot Cell Count 100 Fluid Neutrophils 10 Fluid Lymphocytes 11 Fluid Monocytes 79 Fluid Other Cells 1 Fluid Comment 02/05/19 02/06/19 02/06/19 18:22 00:51 01:35 WBC RBC Hgb Hct MCV MCH MCHC RDW Plt Count MPV Neut % (Auto) Lymph % (Auto) [place] % (Auto) Eos % (Auto) Baso % (Auto) Absolute Neuts (auto) Absolute Lymphs (auto) Absolute Monos (auto) Absolute Eos (auto) Absolute Basos (auto) Absolute Nucleated RBC Nucleated RBC % INR (Anticoag Therapy) Factor II Factor V Patient Temperature Not Reportable ABG pH 7.24 L ABG pH (Temp Correct) Not Reportable ABG pCO2 58 H ABG pCO2 (Temp Corrct Not Reportable ABG pO2 301 H ABG pO2 (Temp Correct Not Reportable ABG HCO3 22.3 ABG O2 Saturation 100.0 H ABG Base Excess -3.4 L Respiration Rate 15 O2 Delivery Device vent Ventilator Type 500 Vent Mode cmv FiO2 100 Inspiratory Time Not Reportable PEEP 5 Pressure Support Not Reportable Pressure Control Not Reportable EPAP Not Reportable IPAP Not Reportable BiPAP Not Reportable Sodium 134 L Potassium 4.9 Chloride 98 L Carbon Dioxide 26 Anion Gap 10 BUN 22 Creatinine 4.76 H Est GFR ( Amer) 14.6 Est GFR (Non-Af Amer) 12.1 BUN/Creatinine Ratio 4.6 L Glucose 96 Lactic Acid Calcium 7.9 L Total Bilirubin 0.60 AST 17 ALT < 3 L Alkaline Phosphatase 96 Ammonia Troponin I 0.03 Total Protein 6.1 L Albumin 2.4 L 2.4 L Globulin 3.7 Albumin/Globulin Ratio 0.6 L Fluid Source Fluid Volume Fluid Color Fluid Appearance Fluid WBC Fluid RBC Fluid Tot Cell Count Fluid Neutrophils Fluid Lymphocytes Fluid Monocytes Fluid Other Cells Fluid Comment 02/06/19 02/06/19 02/06/19 01:35 01:35 01:35 WBC 14.1 H RBC 3.16 L Hgb 9.1 L Hct 30 L MCV 94 MCH 29 MCHC 31 RDW 15 Plt Count 196 MPV 7.3 L Neut % (Auto) 95.2 Lymph % (Auto) 1.7 [place] % (Auto) 2.7 Eos % (Auto) 0.1 Baso % (Auto) 0.3 Absolute Neuts (auto) 13.4 H Absolute Lymphs (auto) 0.2 L Absolute Monos (auto) 0.4 Absolute Eos (auto) 0.0 Absolute Basos (auto) 0.0 Absolute Nucleated RBC 0.0 Nucleated RBC % 0.1 INR (Anticoag Therapy) 1.54 H Factor II Factor V Patient Temperature ABG pH ABG pH (Temp Correct) ABG pCO2 ABG pCO2 (Temp Corrct ABG pO2 ABG pO2 (Temp Correct ABG HCO3 ABG O2 Saturation ABG Base Excess Respiration Rate O2 Delivery Device Ventilator Type Vent Mode FiO2 Inspiratory Time PEEP Pressure Support Pressure Control EPAP IPAP BiPAP Sodium Potassium Chloride Carbon Dioxide Anion Gap BUN Creatinine Est GFR ( Amer) Est GFR (Non-Af Amer) BUN/Creatinine Ratio Glucose Lactic Acid 1.8 Calcium Total Bilirubin AST ALT Alkaline Phosphatase Ammonia Troponin I Total Protein Albumin Globulin Albumin/Globulin Ratio Fluid Source Fluid Volume Fluid Color Fluid Appearance Fluid WBC Fluid RBC Fluid Tot Cell Count Fluid Neutrophils Fluid Lymphocytes Fluid Monocytes Fluid Other Cells Fluid Comment 02/06/19 02/06/19 02/06/19 01:53 04:15 08:50 WBC RBC Hgb Hct MCV MCH MCHC RDW Plt Count MPV Neut % (Auto) Lymph % (Auto) [place] % (Auto) Eos % (Auto) Baso % (Auto) Absolute Neuts (auto) Absolute Lymphs (auto) Absolute Monos (auto) Absolute Eos (auto) Absolute Basos (auto) Absolute Nucleated RBC Nucleated RBC % INR (Anticoag Therapy) Factor II Factor V Patient Temperature Not Reportable ABG pH 7.34 L ABG pH (Temp Correct) Not Reportable ABG pCO2 48 H ABG pCO2 (Temp Corrct Not Reportable ABG pO2 201 H ABG pO2 (Temp Correct Not Reportable ABG HCO3 24.6 ABG O2 Saturation 100.0 H ABG Base Excess -0.4 Respiration Rate 20 O2 Delivery Device vent Ventilator Type Not Reportable Vent Mode pcv FiO2 60 Inspiratory Time Not Reportable PEEP 5 Pressure Support Not Reportable Pressure Control 25 EPAP Not Reportable IPAP Not Reportable BiPAP Not Reportable Sodium Potassium Chloride Carbon Dioxide Anion Gap BUN Creatinine Est GFR ( Amer) Est GFR (Non-Af Amer) BUN/Creatinine Ratio Glucose Lactic Acid Calcium Total Bilirubin AST ALT Alkaline Phosphatase Ammonia 129 H 65 H Troponin I Total Protein Albumin Globulin Albumin/Globulin Ratio Fluid Source Fluid Volume Fluid Color Fluid Appearance Fluid WBC Fluid RBC Fluid Tot Cell Count Fluid Neutrophils Fluid Lymphocytes Fluid Monocytes Fluid Other Cells Fluid Comment 02/06/19 02/06/19 02/06/19 08:50 08:50 08:50 WBC RBC Hgb Hct MCV MCH MCHC RDW Plt Count MPV Neut % (Auto) Lymph % (Auto) [place] % (Auto) Eos % (Auto) Baso % (Auto) Absolute Neuts (auto) Absolute Lymphs (auto) Absolute Monos (auto) Absolute Eos (auto) Absolute Basos (auto) Absolute Nucleated RBC Nucleated RBC % INR (Anticoag Therapy) 1.66 H Factor II Factor V Patient Temperature ABG pH ABG pH (Temp Correct) ABG pCO2 ABG pCO2 (Temp Corrct ABG pO2 ABG pO2 (Temp Correct ABG HCO3 ABG O2 Saturation ABG Base Excess Respiration Rate O2 Delivery Device Ventilator Type Vent Mode FiO2 Inspiratory Time PEEP Pressure Support Pressure Control EPAP IPAP BiPAP Sodium 133 L Potassium 4.5 Chloride 97 L Carbon Dioxide 26 Anion Gap 10 BUN 26 H Creatinine 4.84 H Est GFR ( Amer) 14.3 Est GFR (Non-Af Amer) 11.8 BUN/Creatinine Ratio 5.4 L Glucose 85 Lactic Acid 0.9 Calcium 7.6 L Total Bilirubin 0.60 AST 15 ALT < 3 L Alkaline Phosphatase 100 Ammonia Troponin I 0.03 Total Protein 5.7 L Albumin 2.2 L Globulin 3.5 Albumin/Globulin Ratio 0.6 L Fluid Source Fluid Volume Fluid Color Fluid Appearance Fluid WBC Fluid RBC Fluid Tot Cell Count Fluid Neutrophils Fluid Lymphocytes Fluid Monocytes Fluid Other Cells Fluid Comment Nutrition: start Nepro at 30cc/hr for 1440kcl/day Impression: Severe vasculopathy with superimposed liver disease, likley very chronic and insidious. I do not beleive he suffered a cardiac arrest but he clearly does have hepatic encephalopathy and that is the likley source for his obtundation. Plan: Chronic Hepatic Failure - he has recurrent ascites, heperammonemia and a significant albeit remote ETOH history of weekends x 20 years until age 39 per my D/W . Usual supportive care should be the plan. Biopsy could be pursued to confirm the diagnosis but will not urielley give us a discrete cause. His low transaminases are so low they are consistent with a low hepatocellular mass. ESRD - dialysis planned for Thursday, no acute dialytic indications, D/W Dr. Batista Malnutrition - start Nepro - runs risk of worsening hyperammonemia but cannot heal here without nutrition and hyperkalemic risk of other formulas too great with limited HD resources at this time. PVD - D/W in detail the progressive nature and the system-wide nature of disease. She voiced understanding and appreciation. I was very clear with that we had no curative interventions, only supportive ones that may give him enough time to heal himself if that is still possible. She voiced clear understanding. Continue the balance of his management as instituted. Critical Care Time: 40 minutes
[2019-02-06] MEDS: Heparin VIAL(*) 5000 UNITS/ML VIAL (FIVE THOUSAND) SUBCUT SCH ×2 (16:09→22:00)
[2019-02-06] MEDS ORDERED: Albuterol (2.5 MG) 0.5 % CONC 2.5 MG/0.5 ML NEB.SOLN (ICU and ED only) INH ONE (21:47)
[2019-02-06] MEDS ORDERED: Albuterol 2.5 MG/3 ML NEB.SOL* (0.083%) INH PRN (21:53)
[2019-02-06] MEDS: Mirtazapine TAB* 15 MG PO SCH (22:00)
[2019-02-07] MEDS: Chlorhexidine MOUTHWASH 0.12%* 15 ML UDC TOPICAL SCH ×6 (02:14→21:17)
[2019-02-07] MEDS: Norepinephrine VIAL* 8 MG in NS 0.9% 500 ML* 492 ML IV SCH (03:56)
[2019-02-07] MEDS: metroNIDAZOLE IV 500 MG/100ML* 500 MG/100 ML BAG IVPB SCH ×2 (04:24→19:12)
[2019-02-07 05:01] LABS: Hematocrit 26 % (42-52); Hemoglobin 8.4 g/dL (14.0-18.0); Mean Corpuscular HGB Conc 32 g/dL (31-36); Mean Corpuscular Hemoglobin 29 pg (27-31); Mean Corpuscular Volume 92 fL (80-94); Mean Platelet Volume 7.2 fL (7.4-10.4); Platelet Count 183 10^3/uL (150-450); Red Blood Count 2.85 10^6 /uL (4.18-5.48); Red Cell Distribution Width 15 % (10-15); White Blood Count 10.8 10^3/uL (3.5-10.8)
[2019-02-07 05:19] LABS: BUN/Creatinine Ratio 5.2 (8-20); Calcium 7.7 mg/dL (8.6-10.3); EGFR African American 12.7 (>60); EGFR Non-African American 10.5 (>60); Magnesium 2.2 mg/dL (1.9-2.7); Phosphorus 4.2 mg/dL (2.5-5.0); Potassium 4.4 mmol/L (3.5-5.0)
[2019-02-07] MEDS ORDERED: NS 0.45% 1000 ML BAG* 1,000 ML IV SCH (06:00)
[2019-02-07] MEDS: Heparin VIAL(*) 5000 UNITS/ML VIAL (FIVE THOUSAND) SUBCUT SCH ×3 (06:16→21:17)
[2019-02-07] MEDS: Clopidogrel TAB* 75 MG PO SCH (09:00)
[2019-02-07] MEDS: Aspirin 81 mg CHEW TAB* 81 MG TAB.CHEW PO SCH (09:00)
[2019-02-07] MEDS: Gemfibrozil TAB* 600 MG PO SCH ×2 (09:00→21:17)
[2019-02-07] MEDS: Atorvastatin* 80 MG TAB PO SCH (09:00)
[2019-02-07] MEDS: Sevelamer TAB* 800 MG PO SCH ×3 (09:30→20:13)
[2019-02-07] MEDS: cefTRIAXone(*) 1 GM in NS 0.9% 50 ML* 50 ML IVPB SCH (09:42)
[2019-02-07 10:57] LABS: QuantiferonTb Gold Plus Result Indeterminate (Negative); TB1 Ag minus Nil Result 0.01 IU/mL; TB2 Ag minus Nil Result -0.01 IU/mL
--- NOTE | 2019-02-07 12:27 | PN ---
Date of Service: 02/07/19 Critical Care Services: Self extubated yesterday afternoon and did well. A&O this AM. Vital Signs: Temp Pulse Resp BP SpO2 FiO2 36.9 C 70 18 98/44 94 30 02/07/19 11:57 02/07/19 09:30 02/07/19 09:49 02/07/19 09:30 02/07/19 09:30 02/06 16:00 Physical Exam: Gen: malnourished and chronically-ill appearing but spunky now that he's extubated HEENT: NCAT, PERRL Lungs: coarse entry, mild crackles Cardiac: S1S2 regular Abdomen: soft, mild dist, NT, +BS Extremities: ischemic changes Neuro: intact to baseline Fluid Balance (Past 24 Hours): I= O= Net Intake & Output 02/05/19 02/06/19 02/07/19 02/08/19 06:59 06:59 06:59 06:59 Intake Total 1025 294 991 Output Total 100 75 0 Balance 925 219 991 Weight 108.726 kg 94.3 kg 93 kg Intake: IV Fluids 68 162 NS (0.9%) 68 162 IVPB 55 50 331 ABX - CEFAZOLIN 55 50 NS (0.9%) 153 flagyl 178 Medicated IV 146 498 CC - Norepinephrine/ 73 306 Levophed CC - Propofol/Diprivan 73 192 Oral 970 0 NG Tube Irrigate Amount 30 Output: NG Tube Drainage Amount 75 Urine 100 0 0 Other: Date of Last Bowel 02/06/19 02/07/19 02/07/19 Movement # Bowel Movements 0 1 1 1 Estimated Stool Amount Medium Medium Large # Voids 0 0 0 Labs: Laboratory Results - last 24 hr 02/04/19 02/05/19 02/06/19 09:19 18:12 07:30 WBC RBC Hgb Hct MCV MCH MCHC RDW Plt Count MPV Mixing Interpretation Sodium Potassium Chloride Carbon Dioxide Anion Gap BUN Creatinine Est GFR ( Amer) Est GFR (Non-Af Amer) BUN/Creatinine Ratio Glucose Calcium Phosphorus Magnesium Fluid Cell Count Rvw By TB Test (QFT) Nil 0.04 TB Test Mitogen - Nil 0.46 TB Test Antigen - Nil -0.01 TB Test (QFT) Indeterminate A 02/07/19 02/07/19 04:30 04:30 WBC 10.8 RBC 2.85 L Hgb 8.4 L Hct 26 L MCV 92 MCH 29 MCHC 32 RDW 15 Plt Count 183 MPV 7.2 L Mixing Interpretation Sodium 133 L Potassium 4.4 Chloride 99 L Carbon Dioxide 26 Anion Gap 8 BUN 28 H Creatinine 5.39 H Est GFR ( Amer) 12.7 Est GFR (Non-Af Amer) 10.5 BUN/Creatinine Ratio 5.2 L Glucose 101 H Calcium 7.7 L Phosphorus 4.2 Magnesium 2.2 Fluid Cell Count Rvw By TB Test (QFT) Nil TB Test Mitogen - Nil TB Test Antigen - Nil TB Test (QFT) Nutrition: Regular diet CCHO Impression: Severe vascular disease and occult cirrhosis Plan: Occult liver disease - hepatitis negative, clinical hyperammonemia resolved as he is A&O. Remote ETOH and likely fatty liver/passive congestion the most reasonable pathway to his ascites and hepatic encephalopathy. No direct management at this time but a very significant comorbidity that will be life- limiting. Severe vascular disease - coronary, renal and peripheral. Source control currently adequate of LE and no immediate need to amputate for that indication. That said, healing is not expected either but that will be true of the stump as well. It is likely best to take a moment and take stock of the entirety of the situation before making the trip to the OR. Palliative getting involved and D/W Dr. Julian this AM. I also discussed with Dr. Solomon who discussed this with the . Holding on OR for today. Hemodynamically stable and respiratory status excellent. OK to return to floor.
[2019-02-07] MEDS ORDERED: Heparin DIALYSIS ONLY(*) 1,000 UNITS/ML VIAL DIALYSIS ONE (15:10)
[2019-02-07] MEDS ORDERED: EPOETIN ALFA-EPBX * 10,000 UNIT/ML VIAL IV ONE (15:15)
--- NOTE | 2019-02-07 16:05 | PN ---
PROGRESS NOTE: DATE OF SERVICE: 02/07/19 - ROOM #[id number] SUMMARY: Mr. El is seen in the ICU bed 11. He has had a yossi medical course attributed to his liver failure and ascites. He does have an open wound in his lateral mid foot, which has been clean but not healing robustly. We have been considering a below-knee amputation for him, which would be a good option if his lifespan is reasonable at this point in time or if he were showing some signs of bacteremia, sepsis, or local cellulitis. I spoke with his about the situation, felt that the foot itself was clean although not healing particularly, but I would have no way of predicting whether his below knee amputation would heal promptly either. We both agreed that it would be grove to consider his medical course over the next few days and see if there is any further deterioration, but reserve the aggressive orthopedic treatment of his leg for some reversal in his medical course which would show a longer life span. [id number]/[facility] #: [id number] BHARATI
--- NOTE | 2019-02-07 18:29 | PN ---
DIALYSIS NOTE: DATE OF DIALYSIS: 02/07/19 SERVICE: [facility] Nephrology. HISTORY: The patient was seen and examined at bedside. The patient was extubated. OR on hold today. PHYSICAL EXAMINATION: HEENT: NC/AT. Heart: S1, S2 present. Tachycardic at the time of exam. Lungs: Decreased breath sounds bilaterally. Abdomen: Soft. Extremities noted to have some edema and dressing intact. ASSESSMENT AND PLAN: 1. End-stage renal disease, on hemodialysis 3 times a week. HD orders discussed with dialysis nurse. Routine hemodialysis today. 2. Overall prognosis is very poor, prolonged hospitalization; significant vascular disease, coronary, renal and peripheral. At this time, Palliative Care being involved as well. We will follow with the primary medical team. [id number]/[id number] #: [id number] BHARATI
[2019-02-07] MEDS: LIDOCAINE TOPICAL SCH (20:12)
[2019-02-07] MEDS: PRILOCAINE TOPICAL SCH (20:12)
[2019-02-07] MEDS: Acetaminophen TAB* 325 MG PO PRN (21:16)
[2019-02-07] MEDS: Mirtazapine TAB* 15 MG PO SCH (21:16)
[2019-02-08] MEDS: Chlorhexidine MOUTHWASH 0.12%* 15 ML UDC TOPICAL SCH ×4 (01:55→13:32)
[2019-02-08] MEDS: metroNIDAZOLE IV 500 MG/100ML* 500 MG/100 ML BAG IVPB SCH (05:24)
[2019-02-08] MEDS: Heparin VIAL(*) 5000 UNITS/ML VIAL (FIVE THOUSAND) SUBCUT SCH (05:25)
[2019-02-08] MEDS: Acetaminophen TAB* 325 MG PO PRN (05:26)
[2019-02-08] MEDS: Sevelamer TAB* 800 MG PO SCH ×2 (09:03→13:31)
[2019-02-08] MEDS: cefTRIAXone(*) 1 GM in NS 0.9% 50 ML* 50 ML IVPB SCH (09:03)
[2019-02-08] MEDS: Atorvastatin* 80 MG TAB PO SCH (09:04)
[2019-02-08] MEDS: Aspirin 81 mg CHEW TAB* 81 MG TAB.CHEW PO SCH (09:04)
[2019-02-08] MEDS: Clopidogrel TAB* 75 MG PO SCH (09:04)
[2019-02-08] MEDS: Gemfibrozil TAB* 600 MG PO SCH (09:36)
--- NOTE | 2019-02-08 10:57 | PN ---
Progress Note - Progress Note Date of Service: 02/08/19 Note: Stopped by twice yesterday but no family and left message with this am.
[2019-02-08] MEDS ORDERED: Cefepime 1 GM in Dextrose(*) 1 GM/50 ML BAG IV ONE (13:00)
[2019-02-08] MEDS ORDERED: Cefepime(*) 1 GM in NS 0.9% 50 ML* 50 ML IVPB ONE (13:00)
[2019-02-08] MEDS ORDERED: Lorazepam PYXIS KEY PRN (13:20)
[2019-02-08] MEDS ORDERED: LORazepam INJ* 2 MG/ML 1 ML VIAL IV PUSH PRN (13:20)
--- NOTE | 2019-02-08 13:27 | PN ---
Subjective Date of Service: 02/08/19 Interval History: Pt is feeling poorly. He is in pain in his chest (with coughing) and his bottom (he has a pressure sore- per nursing). He is to the point now where does not think that there is any benefit to proceeding with any more attempts at curative treatment. He wishes to go home and spend his last hours/days at home. Family History: Unchanged from Admission Social History: Unchanged from Admission Past Medical History: Unchanged from Admission Objective Active Medications: Acetaminophen (Tylenol Tab*) 650 mg PO Q4H PRN PRN Reason: FEVER/PAIN Last Admin: 02/08/19 05:26 Dose: 650 mg Albuterol (Ventolin 2.5 Mg/3 Ml Neb.Nelly*) 2.5 mg INH Q4H PRN PRN Reason: SOB/WHEEZING Aspirin (Aspirin 81 Mg Chew Tab*) 81 mg PO DAILY [facility] Last Admin: 02/08/19 09:04 Dose: 81 mg Calcium Carbonate (Tums*) 500 mg PO Q4H PRN PRN Reason: INDIGESTION Last Admin: 02/03/19 21:27 Dose: 500 mg Clopidogrel Bisulfate (Plavix Tab*) 37.5 mg PO DAILY [facility] Stop: 04/26/19 18:59 Last Admin: 02/08/19 09:04 Dose: 37.5 mg Dextrose (D50w Syringe 50 Ml*) 25 gm IV PUSH .FOR FS < 60 - SS PRN PRN Reason: FS < 60 Heparin Sodium (Porcine) (Heparin Flush Picc/Ml/Cvc(*)) 0 ml FLUSH 0600,1800 [facility]; Protocol Last Admin: 02/08/19 05:25 Dose: 3 ml Lactulose (Lactulose*) 30 ml PO QID [facility] Last Admin: 02/08/19 09:03 Dose: 30 ml Lidocaine/Prilocaine (Emla*) 1 applic TOPICAL MoWeFr [facility] Last Admin: 02/07/19 20:12 Dose: Not Given Lorazepam (Ativan Inj*) 0.5 mg IV PUSH Q4H PRN PRN Reason: ANXIETY Melatonin (Melatonin) 3 mg PO BEDTIME PRN PRN Reason: SLEEP Last Admin: 02/03/19 21:28 Dose: 3 mg Mirtazapine (Remeron Tab*) 7.5 mg PO BEDTIME GERONIMO Last Admin: 02/07/19 21:16 Dose: 7.5 mg Miscellaneous (Ativan Pyxis [place]) 1 ea N/A .ATIVAN IV VILLAREAL PRN PRN Reason: PYXIS VILLAREAL Morphine Sulfate (Morphine Oral Concentrate*) 5 mg SL Q2H PRN PRN Reason: PAIN Ondansetron HCl (Zofran Odt Tab*) 4 mg SL Q6H PRN PRN Reason: NAUSEA/VOMITING Last Admin: 02/05/19 20:06 Dose: 4 mg Vital Signs - 8 hr 02/08/19 02/08/19 02/08/19 07:29 07:58 08:00 Temperature 98.2 F Pulse Rate 76 70 Respiratory 18 16 18 Rate Blood Pressure 88/38 (mmHg) O2 Sat by Pulse 98 97 Oximetry 02/08/19 12:19 Temperature 97.9 F Pulse Rate 65 Respiratory 16 Rate Blood Pressure 65/41 (mmHg) O2 Sat by Pulse 94 Oximetry Oxygen Devices in Use Now: OxyMask Appearance: Elderly ill appearing male lying in bed, NAD Eyes: No Scleral Icterus Ears/Nose/Mouth/Throat: Mucous Membranes Moist Respiratory: Symmetrical Chest Expansion and Respiratory Effort, Clear to Auscultation - anteriorly Cardiovascular: NL Sounds; No Murmurs; No JVD, RRR, - - diffuse anasarca Abdominal: - - distended abdomen, NT Extremities: No Clubbing, Cyanosis Skin: No Nodules or Sclerosis Neurological: Alert and Oriented x 3 Result Diagrams: 02/07/19 04:30 02/07/19 04:30 Additional Lab and Data: Laboratory Results - last 24 hr 02/04/19 02/04/19 02/04/19 07:11 08:16 09:18 WBC 5.7 RBC 2.84 L Hgb 8.3 L Hct 26 L MCV 93 MCH 29 MCHC 32 RDW 15 Plt Count 177 MPV 6.8 L Neut % (Auto) 80.3 Lymph % (Auto) 10.9 [place] % (Auto) 6.5 Eos % (Auto) 1.4 Baso % (Auto) 0.9 Absolute Neuts (auto) 4.6 Absolute Lymphs (auto) 0.6 L Absolute Monos (auto) 0.4 Absolute Eos (auto) 0.1 Absolute Basos (auto) 0.1 Absolute Nucleated RBC 0.0 Nucleated RBC % 0.0 APTT 66.5 H PT Patient/Normal 1:1 PT Pat/Norm 1:1 1 Hr PTT Normal Plasma 1 Hr PTT Patient/Normal 1:1 Fibrinogen 323.2 D-Dimer, Quantitative > 1050 H POC Glucose (mg/dL) 78 Ammonia C-Reactive Protein 02/04/19 02/04/19 02/04/19 09:18 09:19 09:19 WBC RBC Hgb Hct MCV MCH MCHC RDW Plt Count MPV Neut % (Auto) Lymph % (Auto) [place] % (Auto) Eos % (Auto) Baso % (Auto) Absolute Neuts (auto) Absolute Lymphs (auto) Absolute Monos (auto) Absolute Eos (auto) Absolute Basos (auto) Absolute Nucleated RBC Nucleated RBC % APTT 67.7 H PT Patient/Normal 1:1 14.3 H PT Pat/Norm 1:1 1 Hr 14.9 H PTT Normal Plasma 1 Hr 37.7 PTT Patient/Normal 1:1 36.2 Fibrinogen D-Dimer, Quantitative POC Glucose (mg/dL) Ammonia 69 H C-Reactive Protein 136.25 H 02/04/19 02/04/19 11:51 16:35 WBC RBC Hgb Hct MCV MCH MCHC RDW Plt Count MPV Neut % (Auto) Lymph % (Auto) [place] % (Auto) Eos % (Auto) Baso % (Auto) Absolute Neuts (auto) Absolute Lymphs (auto) Absolute Monos (auto) Absolute Eos (auto) Absolute Basos (auto) Absolute Nucleated RBC Nucleated RBC % APTT PT Patient/Normal 1:1 PT Pat/Norm 1:1 1 Hr PTT Normal Plasma 1 Hr PTT Patient/Normal 1:1 Fibrinogen D-Dimer, Quantitative POC Glucose (mg/dL) 91 88 Ammonia C-Reactive Protein Microbiology and Other Data: Microbiology 01/31/19 06:30 Stool Stool Occult Blood (RJ) - Final 01/11/19 15:05 Wound Anaerobic Culture - Final No Growth Day 4 01/11/19 15:05 Foot Left Skin and Soft Tissue MRSA/MSSA (PCR - Final Mrsa Negative S.aureus Positive 01/11/19 15:05 Foot Left Gram Stain - Final 01/11/19 15:05 Foot Left Wound Culture - Final No Growth Day 4 01/08/19 16:28 Peritoneal Fluid Sterile Body Fluid Culture - Final No Growth Day 5 01/08/19 16:28 Peritoneal Fluid Sterile Body Fluid Culture - Final No Growth Day 5 01/06/19 12:01 Wound Anaerobic Culture - Final No Growth Day 4 01/06/19 12:01 Foot Left Skin and Soft Tissue MRSA/MSSA (PCR - Final Mrsa Negative S.aureus Positive 01/06/19 12:01 Foot Left Gram Stain - Final 01/06/19 12:01 Foot Left Wound Culture - Final No Growth Day 4 01/08/19 16:28 Body Fluid Gram Stain - Final 01/03/19 10:13 Foot Left Gram Stain - Final 01/03/19 10:13 Foot Left Wound Culture - Final Staphylococcus Aureus 12/29/18 14:15 Blood Venous Aerobic Blood Culture - Final No Growth Day 5 12/29/18 14:15 Blood Venous Anaerobic Blood Culture - Final No Growth Day 5 12/29/18 16:00 Foot Left Gram Stain - Final 12/29/18 16:00 Foot Left Wound Culture - Final Staphylococcus Aureus Normal Nadja 12/29/18 16:00 Foot Left Skin and Soft Tissue MRSA/MSSA (PCR - Final Mrsa Negative S.aureus Negative 12/29/18 16:00 Foot Left Gram Stain - Final 12/29/18 16:00 Foot Left Wound Culture - Final Normal Nadja Diagnostic Imagin02/11/18 - VL ANK/BRACHIAL INDICES: Ankle-brachial indices: Right: Value (SBP) Index Brachial: 164 Posterior tibialis: Noncompressible Dorsalis pedis: Noncompressible Digit: 56 0.33 Left: Value (SBP) Index Brachial: 172 Posterior tibialis: Noncompressible Dorsalis pedis: Noncompressible Digit: 47 0.27 Doppler waveforms (acquired at rest): In the interrogated lower extremity arteries, Doppler waveforms are monophasic and the bilateral lower extremities with notably reduced amplitude at the right posterior tibial artery. 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 Found to have osteo of 5th metatarsal, now s/p L foot I&D and excision of 5th metatarsal base on 6/13. PCR in OR positive for Staph aureus without growth. S/p debridement of L lateral mid-foot with ostectomy, partial cuboid resection, I&D and vac dressing with repeated changes. Pt also diagnosed with liver failure of unclear cause but possibly related to past EtOH use. Pt now decompensating further and hypotensive over the last 24hr. The patient has opted comfort care as of now. He would like to go home with hospice. Case management is working on this plan. Will stop non- comfort meds and start prn morphine concentrate and ativan. Status and Disposition: Inpatient. Ortho planning above ankle amputation Wednesday 02/07
[2019-02-08] MEDS: Morphine ORAL CONCENTRATE* 5 MG/0.25 ML ORAL.SYRIN SL PRN ×3 (13:58→23:27)
--- NOTE | 2019-02-08 14:29 | PN ---
Progress Note - Progress Note Date of Service: 02/08/19 SOAP: Subjective: []Pt seen at bedside, his present. He is under comfort care and will be discharging to home. Objective: [][]General: NAD, coughing and self suctioning sputum LLE: wound vac removed. Wound without evidence of healing, no purulence and no surrounding maceration or erythema. BL great toes with ecchymosis distally, no erythema Assessment: L foot infection/ulcer; s/p revascularization on 01/26 Plan: Patient is going home on comfort care. Discussed with Dr Solomon, stopped wound vac and patient will have every other day betadine wet to dry dressing changes. If able he should follow up in our orthopedic office in 2 weeks. Please call sooner with questions or concerns Vital Signs Temp 97.9 F 02/08/19 12:19 Pulse 65 02/08/19 12:19 Resp 18 02/08/19 13:58 BP 65/41 02/08/19 12:19 Pulse Ox 94 02/08/19 12:19 Intake & Output 02/07/19 02/08/19 02/08/19 18:59 06:59 18:59 Other: Date of Last Bowel 02/07/19 Movement # Bowel Movements 1 Estimated Stool Amount Large Laboratory Last Values WBC 10.8 10^3/uL (3.5-10.8) 02/07/19 04:30 RBC 2.85 10^6 /uL (4.18-5.48) L 02/07/19 04:30 Hgb 8.4 g/dL (14.0-18.0) L 02/07/19 04:30 Hct 26 % (42-52) L 02/07/19 04:30 MCV 92 fL (80-94) 02/07/19 04:30 MCH 29 pg (27-31) 02/07/19 04:30 MCHC 32 g/dL (31-36) 02/07/19 04:30 RDW 15 % (10-15) 02/07/19 04:30 Plt Count 183 10^3/uL (150-450) 02/07/19 04:30 MPV 7.2 fL (7.4-10.4) L 02/07/19 04:30 Neut % (Auto) 95.2 % 02/06/19 01:35 Lymph % (Auto) 1.7 % 02/06/19 01:35 [place] % (Auto) 2.7 % 02/06/19 01:35 Eos % (Auto) 0.1 % 02/06/19 01:35 Baso % (Auto) 0.3 % 02/06/19 01:35 Absolute Neuts (auto) 13.4 10^3/ul (1.5-7.7) H 02/06/19 01:35 Absolute Lymphs (auto) 0.2 10^3/ul (1.0-4.8) L 02/06/19 01:35 Absolute Monos (auto) 0.4 10^3/ul (0-0.8) 02/06/19 01:35 Absolute Eos (auto) 0.0 10^3/ul (0-0.6) 02/06/19 01:35 Absolute Basos (auto) 0.0 10^3/ul (0-0.2) 02/06/19 01:35 Absolute Nucleated RBC 0.0 10^3/ul 02/06/19 01:35 Nucleated RBC % 0.1 02/06/19 01:35 INR (Anticoag Therapy) 1.66 (0.82-1.09) H 02/06/19 08:50 APTT 67.7 seconds (26.0-38.0) H 02/04/19 09:19 PT Patient/Normal 1:1 14.3 seconds (9.4-12.5) H 02/04/19 09:19 PT Pat/Norm 1:1 1 Hr 14.9 seconds (9.4-12.5) H 02/04/19 09:19 PTT Normal Plasma 1 Hr 37.7 seconds (26.0-38.0) 02/04/19 09:19 PTT Patient/Normal 1:1 36.2 seconds (26.0-38.0) 02/04/19 09:19 Mixing Interpretation 02/04/19 09:19 POC Activ Clotting Time 288 seconds 01/26/19 16:30 Fibrinogen 323.2 mg/dL (110.8-404.3) 02/04/19 07:11 D-Dimer, Quantitative > 1050 ng/mL (Less Than 230) H 02/04/19 07:11 Factor II 14 % (75 - 145) L 02/04/19 09:19 Factor V 120 % (70 - 165) 02/04/19 09:19 Patient Temperature Not Reportable 02/06/19 04:15 ABG pH 7.34 (7.35-7.45) L 02/06/19 04:15 ABG pH (Temp Correct) Not Reportable 02/06/19 04:15 ABG pCO2 48 mmHg (35-45) H 02/06/19 04:15 ABG pCO2 (Temp Corrct Not Reportable 02/06/19 04:15 ABG pO2 201 mmHg (80-100) H 02/06/19 04:15 ABG pO2 (Temp Correct Not Reportable 02/06/19 04:15 ABG HCO3 24.6 mmol/L (19-31) 02/06/19 04:15 ABG O2 Saturation 100.0 % (94.0-98.0) H 02/06/19 04:15 ABG Base Excess -0.4 mmol/L (-2.0-2.0) 02/06/19 04:15 Respiration Rate 20 02/06/19 04:15 O2 Delivery Device vent 02/06/19 04:15 Ventilator Type Not Reportable 02/06/19 04:15 Vent Mode pcv 02/06/19 04:15 FiO2 60 02/06/19 04:15 Inspiratory Time Not Reportable 02/06/19 04:15 PEEP 5 02/06/19 04:15 Pressure Support Not Reportable 02/06/19 04:15 Pressure Control 25 02/06/19 04:15 EPAP Not Reportable 02/06/19 04:15 IPAP Not Reportable 02/06/19 04:15 BiPAP Not Reportable 02/06/19 04:15 Sodium 133 mmol/L (135-145) L 02/07/19 04:30 Potassium 4.4 mmol/L (3.5-5.0) 02/07/19 04:30 Chloride 99 mmol/L (101-111) L 02/07/19 04:30 Carbon Dioxide 26 mmol/L (22-32) 02/07/19 04:30 Anion Gap 8 mmol/L (2-11) 02/07/19 04:30 BUN 28 mg/dL (6-24) H 02/07/19 04:30 Creatinine 5.39 mg/dL (0.67-1.17) H 02/07/19 04:30 1/Creatinine 0.17 01/03/19 08:24 Est GFR ( Amer) 12.7 (>60) 02/07/19 04:30 Est GFR (Non-Af Amer) 10.5 (>60) 02/07/19 04:30 BUN/Creatinine Ratio 5.2 (8-20) L 02/07/19 04:30 Glucose 101 mg/dL (70-100) H 02/07/19 04:30 POC Glucose (mg/dL) 88 mg/dL (70-100) 02/04/19 16:35 Hemoglobin A1c 6.4 % (4.0-5.6) H 01/18/19 06:45 Serum Osmolality 287 mOsm/kg (275-295) 01/27/19 17:10 Lactic Acid 0.9 mmol/L (0.5-2.0) 02/06/19 08:50 Calcium 7.7 mg/dL (8.6-10.3) L 02/07/19 04:30 Ionized Calcium 1.05 mmol/L (1.16-1.32) L 01/28/19 05:39 Phosphorus 4.2 mg/dL (2.5-5.0) 02/07/19 04:30 Magnesium 2.2 mg/dL (1.9-2.7) 02/07/19 04:30 Total Bilirubin 0.60 mg/dL (0.2-1.0) 02/06/19 08:50 Direct Bilirubin 0.20 mg/dL (0.03-0.18) H 02/01/19 06:41 Indirect Bilirubin 0.2 mg/dL (0.3-1.0) L 02/01/19 06:41 AST 15 U/L (13-39) 02/06/19 08:50 ALT < 3 U/L (7-52) L 02/06/19 08:50 Alkaline Phosphatase 100 U/L (34-104) 02/06/19 08:50 Ammonia 65 mcmol/L (16-53) H 02/06/19 08:50 Troponin I 0.03 ng/mL (<0.04) 02/06/19 08:50 C-Reactive Protein 136.25 mg/L (<8.01) H 02/04/19 09:19 Total Protein 5.7 g/dL (6.4-8.9) L 02/06/19 08:50 Albumin 2.2 g/dL (3.2-5.2) L 02/06/19 08:50 Globulin 3.5 g/dL (2-4) 02/06/19 08:50 Albumin/Globulin Ratio 0.6 (1-3) L 02/06/19 08:50 Urine Osmolality 341 mOsm/kg (100-1150) 01/29/19 20:40 Fluid Source Peritoneal 02/05/19 18:12 Fluid Volume 5.0 mL 02/05/19 18:12 Fluid Color Yellow 02/05/19 18:12 Fluid Appearance Clear 02/05/19 18:12 Fluid WBC 386 /mcL (0-806020) 02/05/19 18:12 Fluid RBC 167 /mcL 02/05/19 18:12 Fluid Tot Cell Count 100 02/05/19 18:12 Fluid Neutrophils 10 % 02/05/19 18:12 Fluid Band Neutrophils 1 % 01/08/19 16:28 Fluid Lymphocytes 11 % 02/05/19 18:12 Fluid Monocytes 79 % 02/05/19 18:12 Fluid Eosinophils 1 % 01/08/19 16:28 Fluid Other Cells 1 02/05/19 18:12 Fluid Cell Count Rvw By 02/05/19 18:12 Fluid Glucose 92 mg/dL 02/05/19 18:12 Fluid Total Protein 3.5 g/dL 02/05/19 18:12 Fluid Comment 02/05/19 18:12 Random Vancomycin 6.3 mcg/mL 12/31/18 11:00 Anti-Nuclear Antibody 0.3 U 01/21/19 05:46 Mitochondria M2 Ab <0.1 U 01/21/19 05:46 Anti-Smooth Muscle Ab Negative (Negative) 01/21/19 05:46 Hepatitis B Antibody Not immune (Immune) A 12/31/18 11:00 Hep Bs Antigen Negative (Negative) 12/31/18 11:00 Hepatitis C Antibody Negative (Negative) 01/19/19 06:11 Hepatitis C Ab Index 0.03 s/c 01/19/19 06:11 TB Test (QFT) Nil 0.04 IU/mL 02/06/19 07:30 TB Test Mitogen - Nil 0.46 IU/mL 02/06/19 07:30 TB Test Antigen - Nil 0.01 IU/mL 02/06/19 07:30 TB Test Antigen - Nil -0.01 IU/mL 02/06/19 07:30 TB Test (QFT) Indeterminate (Negative) A 02/06/19 07:30 Miscellaneous Test See comments 01/08/19 16:28 Blood Type O Positive 01/27/19 17:10 Antibody Screen Negative 01/27/19 17:10 Crossmatch See Detail 01/27/19 17:10
[2019-02-08] MEDS: Mirtazapine TAB* 15 MG PO SCH (22:21)
[2019-02-08] MEDS: Ondansetron ODT TAB* 4 MG SL PRN (23:28)
[2019-02-09] MEDS ORDERED: Scopolamine 1.5 mg* PATCH TRANSDERM SCH (06:30)
[2019-02-09] MEDS ORDERED: Scopolamine 1.5 mg* PATCH TRANSDERM PRN (06:31)
[2019-02-09] MEDS: Aspirin 81 mg CHEW TAB* 81 MG TAB.CHEW PO SCH (08:41)
[2019-02-09] MEDS: Clopidogrel TAB* 75 MG PO SCH (08:41)
[2019-02-09] MEDS: LIDOCAINE TOPICAL SCH (08:42)
[2019-02-09] MEDS: PRILOCAINE TOPICAL SCH (08:42)
--- NOTE | 2019-02-09 11:54 | PN ---
Subjective Date of Service: 02/09/19 Interval History: Pt is minimally responsive. He opens his eyes when I call his name. He does not answer any questions. Objective Active Medications: Acetaminophen (Tylenol Tab*) 650 mg PO Q4H PRN PRN Reason: FEVER/PAIN Last Admin: 02/08/19 05:26 Dose: 650 mg Albuterol (Ventolin 2.5 Mg/3 Ml Neb.Nelly*) 2.5 mg INH Q4H PRN PRN Reason: SOB/WHEEZING Aspirin (Aspirin 81 Mg Chew Tab*) 81 mg PO DAILY [facility] Last Admin: 02/09/19 08:41 Dose: Not Given Calcium Carbonate (Tums*) 500 mg PO Q4H PRN PRN Reason: INDIGESTION Last Admin: 02/03/19 21:27 Dose: 500 mg Clopidogrel Bisulfate (Plavix Tab*) 37.5 mg PO DAILY [facility] Stop: 04/26/19 18:59 Last Admin: 02/09/19 08:41 Dose: Not Given Dextrose (D50w Syringe 50 Ml*) 25 gm IV PUSH .FOR FS < 60 - SS PRN PRN Reason: FS < 60 Heparin Sodium (Porcine) (Heparin Flush Picc/Ml/Cvc(*)) 0 ml FLUSH 0600,1800 [facility]; Protocol Last Admin: 02/09/19 05:51 Dose: 3 ml Lactulose (Lactulose*) 30 ml PO QID [facility] Last Admin: 02/09/19 08:41 Dose: Not Given Lidocaine/Prilocaine (Emla*) 1 applic TOPICAL MoWeFr [facility] Last Admin: 02/09/19 08:42 Dose: Not Given Lorazepam (Ativan Inj*) 0.5 mg IV PUSH Q4H PRN PRN Reason: ANXIETY Last Admin: 02/08/19 15:02 Dose: 0.5 mg Melatonin (Melatonin) 3 mg PO BEDTIME PRN PRN Reason: SLEEP Last Admin: 02/03/19 21:28 Dose: 3 mg Mirtazapine (Remeron Tab*) 7.5 mg PO BEDTIME [facility] Last Admin: 02/08/19 22:21 Dose: 7.5 mg Miscellaneous (Ativan Pyxis Villareal) 1 ea N/A .ATIVAN IV VILLAREAL PRN PRN Reason: PYXIS VILLAREAL Morphine Sulfate (Morphine Oral Concentrate*) 5 mg SL Q2H PRN PRN Reason: PAIN Last Admin: 02/08/19 23:27 Dose: 5 mg Ondansetron HCl (Zofran Odt Tab*) 4 mg SL Q6H PRN PRN Reason: NAUSEA/VOMITING Last Admin: 02/08/19 23:28 Dose: 4 mg Pharmacy Profile Note (Scopolamine Patch Remove*) 1 note PATCH OFF Q72H GERONIMO Scopolamine (Transderm-Scop 1.5 Mg Patch*) 1 patch TRANSDERM Q72H PRN PRN Reason: INCREASED SECRETIONS Last Admin: 02/09/19 06:52 Dose: 1 patch Oxygen Devices in Use Now: None Appearance: Elderly ill appearing male lying in bed, minimally responsive, NAD Ears/Nose/Mouth/Throat: - - dry oral mucosa Respiratory: Clear to Auscultation - anteriorly, - - rattling respirations noted Cardiovascular: NL Sounds; No Murmurs; No JVD, RRR Abdominal: NL Sounds; No Tenderness; No Distention Result Diagrams: 02/07/19 04:30 02/07/19 04:30 Additional Lab and Data: Laboratory Results - last 24 hr 02/04/19 02/04/19 02/04/19 07:11 08:16 09:18 WBC 5.7 RBC 2.84 L Hgb 8.3 L Hct 26 L MCV 93 MCH 29 MCHC 32 RDW 15 Plt Count 177 MPV 6.8 L Neut % (Auto) 80.3 Lymph % (Auto) 10.9 [place] % (Auto) 6.5 Eos % (Auto) 1.4 Baso % (Auto) 0.9 Absolute Neuts (auto) 4.6 Absolute Lymphs (auto) 0.6 L Absolute Monos (auto) 0.4 Absolute Eos (auto) 0.1 Absolute Basos (auto) 0.1 Absolute Nucleated RBC 0.0 Nucleated RBC % 0.0 APTT 66.5 H PT Patient/Normal 1:1 PT Pat/Norm 1:1 1 Hr PTT Normal Plasma 1 Hr PTT Patient/Normal 1:1 Fibrinogen 323.2 D-Dimer, Quantitative > 1050 H POC Glucose (mg/dL) 78 Ammonia C-Reactive Protein 02/04/19 02/04/19 02/04/19 09:18 09:19 09:19 WBC RBC Hgb Hct MCV MCH MCHC RDW Plt Count MPV Neut % (Auto) Lymph % (Auto) [place] % (Auto) Eos % (Auto) Baso % (Auto) Absolute Neuts (auto) Absolute Lymphs (auto) Absolute Monos (auto) Absolute Eos (auto) Absolute Basos (auto) Absolute Nucleated RBC Nucleated RBC % APTT 67.7 H PT Patient/Normal 1:1 14.3 H PT Pat/Norm 1:1 1 Hr 14.9 H PTT Normal Plasma 1 Hr 37.7 PTT Patient/Normal 1:1 36.2 Fibrinogen D-Dimer, Quantitative POC Glucose (mg/dL) Ammonia 69 H C-Reactive Protein 136.25 H 02/04/19 02/04/19 11:51 16:35 WBC RBC Hgb Hct MCV MCH MCHC RDW Plt Count MPV Neut % (Auto) Lymph % (Auto) [place] % (Auto) Eos % (Auto) Baso % (Auto) Absolute Neuts (auto) Absolute Lymphs (auto) Absolute Monos (auto) Absolute Eos (auto) Absolute Basos (auto) Absolute Nucleated RBC Nucleated RBC % APTT PT Patient/Normal 1:1 PT Pat/Norm 1:1 1 Hr PTT Normal Plasma 1 Hr PTT Patient/Normal 1:1 Fibrinogen D-Dimer, Quantitative POC Glucose (mg/dL) 91 88 Ammonia C-Reactive Protein Microbiology and Other Data: Microbiology 01/31/19 06:30 Stool Stool Occult Blood (RJ) - Final 01/11/19 15:05 Wound Anaerobic Culture - Final No Growth Day 4 01/11/19 15:05 Foot Left Skin and Soft Tissue MRSA/MSSA (PCR - Final Mrsa Negative S.aureus Positive 01/11/19 15:05 Foot Left Gram Stain - Final 01/11/19 15:05 Foot Left Wound Culture - Final No Growth Day 4 01/08/19 16:28 Peritoneal Fluid Sterile Body Fluid Culture - Final No Growth Day 5 01/08/19 16:28 Peritoneal Fluid Sterile Body Fluid Culture - Final No Growth Day 5 01/06/19 12:01 Wound Anaerobic Culture - Final No Growth Day 4 01/06/19 12:01 Foot Left Skin and Soft Tissue MRSA/MSSA (PCR - Final Mrsa Negative S.aureus Positive 01/06/19 12:01 Foot Left Gram Stain - Final 01/06/19 12:01 Foot Left Wound Culture - Final No Growth Day 4 01/08/19 16:28 Body Fluid Gram Stain - Final 01/03/19 10:13 Foot Left Gram Stain - Final 01/03/19 10:13 Foot Left Wound Culture - Final Staphylococcus Aureus 12/29/18 14:15 Blood Venous Aerobic Blood Culture - Final No Growth Day 5 12/29/18 14:15 Blood Venous Anaerobic Blood Culture - Final No Growth Day 5 12/29/18 16:00 Foot Left Gram Stain - Final 12/29/18 16:00 Foot Left Wound Culture - Final Staphylococcus Aureus Normal Nadja 12/29/18 16:00 Foot Left Skin and Soft Tissue MRSA/MSSA (PCR - Final Mrsa Negative S.aureus Negative 12/29/18 16:00 Foot Left Gram Stain - Final 12/29/18 16:00 Foot Left Wound Culture - Final Normal Nadja Diagnostic Imagin02/11/18 - VL ANK/BRACHIAL INDICES: Ankle-brachial indices: Right: Value (SBP) Index Brachial: 164 Posterior tibialis: Noncompressible Dorsalis pedis: Noncompressible Digit: 56 0.33 Left: Value (SBP) Index Brachial: 172 Posterior tibialis: Noncompressible Dorsalis pedis: Noncompressible Digit: 47 0.27 Doppler waveforms (acquired at rest): In the interrogated lower extremity arteries, Doppler waveforms are monophasic and the bilateral lower extremities with notably reduced amplitude at the right posterior tibial artery. 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 Found to have osteo of 5th metatarsal, now s/p L foot I&D and excision of 5th metatarsal base on 01/06. PCR in OR positive for Staph aureus without growth. S/p debridement of L lateral mid-foot with ostectomy, partial cuboid resection, I&D and vac dressing with repeated changes. Pt also diagnosed with liver failure of unclear cause but possibly related to past EtOH use. Pt changed to comfort care yesterday. Today he is minimally responsive. I do not think at this time it would be safe to transport Rickie home. Will continue comfort measures. Status and Disposition: .
[2019-02-09] MEDS ORDERED: Cefepime(*) 0.5 GM in NS 0.9% 50 ML* 50 ML IVPB SCH (13:00)
[2019-02-09] MEDS: Morphine ORAL CONCENTRATE* 5 MG/0.25 ML ORAL.SYRIN SL PRN ×2 (18:19→21:29)
[2019-02-09] MEDS: Mirtazapine TAB* 15 MG PO SCH (23:20)
[2019-02-10 08:03] VITALS: BP 88/44
[2019-02-10] MEDS: Aspirin 81 mg CHEW TAB* 81 MG TAB.CHEW PO SCH (11:11)
[2019-02-10] MEDS: Clopidogrel TAB* 75 MG PO SCH (11:11)
--- NOTE | 2019-02-10 11:25 | DS ---
CC: Dr. Brooks; Dr. Yanes; Dr. Narayanan; Dr. Batista; Dr. Fraire; Dr. Martínez; Dr. Solomon; Dr. Karen Julian; Dr. Dixon * DISCHARGE SUMMARY: DATE OF ADMISSION: 12/29/18 DATE OF DISCHARGE TO HOME WITH HOSPICE: 02/10/19 PRIMARY CARE PROVIDER: Dr. Brooks. DISCHARGE DIAGNOSES: 1. Left foot osteomyelitis and cellulitis, status post left fifth metatarsal resection performed by Dr. Fraire on 01/06/19. 2. Acute hypoxemic respiratory failure with aspiration pneumonitis with intubation on 02/06/19. 3. Liver failure with ascites and hepatic encephalopathy of unknown origin. 4. The patient is a comfort care patient. SECONDARY DIAGNOSES: 1. History of end-stage renal disease. 2. Diabetes type 2. 3. Carotid disease. 4. History of chronic hypoxemic respiratory failure, on 2 L nasal cannula at night prior to admission. 5. Peripheral vascular disease. 6. History of osteomyelitis of left foot. 7. Status post arteriovenous fistula on the left arm. 8. History of left foot toes amputations in the past. 9. Coronary artery disease, status post coronary artery bypass grafting remotely. MEDICATIONS ON DISCHARGE: Include: 1. Scopolamine 1 patch every 72 hours applied to skin, removed 3 days later. 2. Morphine oral concentrate 5 mg sublingually every 2 hours p.r.n. for pain and discomfort. CONSULTATIONS DURING THE HOSPITAL STAY: Included Dr. Pool, infectious disease; Dr. Yanes, infectious disease, Dr. Solomon; Dr. Fraire and Dr. Gabriel from orthopedic service as well as Dr. Karen Julian from hospice/ palliative care as well as Dr. Dixon, gastroenterology. HOSPITALIZATION COURSE: Rickie El is a 73-year-old male who was admitted on for cellulitis of the left foot and osteomyelitis. On 01/06/19, he was taken to the OR by Dr. Fraire, underwent left foot I and D and excision of the left fifth metatarsal base. On 01/07/19, he had noticed ascites with volume overload and chest x-ray and a day later on 01/08/19, he had a paracentesis where 8 L of clear yellow fluid was removed. On 01/11/19, he was taken back to the OR by Dr. Solomon for debridement, ostectomy, resection, and placement of wound VAC. On 01/13/19, his ascites was noted to be likely nephrogenic. On that day, he was also taken by Dr. Solomon to the OR for dressing changes. On 02/06/19, he was noted to have acute hypoxemic respiratory failure likely with aspiration. He was intubated and transferred to the intensive care unit. At that point, triple-lumen catheter was placed. After a couple of days of stay in the ICU, he was extubated and Dr. Julian saw the patient in palliative care consultation. At that point, it was recommended for the patient to be comfort care. On 01/08/19, the patient was transferred out of the ICU to medical floor with comfort care orders. Dr. Julian recommended hospice at home. He was observed for another couple of days to make sure that the patient is stable enough to undergo transfer back to home. On 01/11/19, the patient wakes up to voice. He is pleasant, basically nonverbal. He appears comfortable and he is ready to be transferred home to home hospice. The patient 's medications were discontinued, apart from morphine as needed as well as scopolamine for nausea. The patient is going to be transferred back to home with home hospice to sign in today at 1 p.m. DISPOSITION AT DISCHARGE: To home with hospice. CONDITION ON DISCHARGE: Stable, but in comfort care. PHYSICAL EXAMINATION: At the time of discharge, blood pressure of 88/44, heart rate of 46 and regular, respiratory rate 16, oxygen saturation 90% on 2 L of oxygen nasal cannula, temperature of 96.8. General: The patient is a pleasant 73-year- old male who is basically nonverbal, but alert and responds to command. The patient is in no acute distress. HEENT: Head: Atraumatic, normocephalic. Eyes: Pupils are equal, reactive to light and accommodation. Oropharynx is clear. Mucosa dry. Neck: Supple. No JVD. No bruits bilaterally. Cardiovascular: Regular rate and rhythm. No murmur. Respiratory : Rhonchi about the upper lungs to auscultation. Abdomen: Mild ascites noted. Soft, nontender. Bowel sounds are present in all 4 quadrants. Extremities: There is no edema. The patient has mottling noted in bilateral big toes with peripheral cyanosis noted. His left foot is status post all of the toes amputations, apart from the first toe that is still remaining. The patient has a big wound noted on the lateral aspect of the left foot close to his heel, which is a crater-like wound of approximately 5 to 6 cm in diameter, deep to the bone, not draining. Skin: On evaluation of the skin, the patient has mottled lower extremities and cyanosis of bilateral big toes. No other rashes noted. Neurologic Exam: Deferred in this comfort care patient, although the patient is alert and able to open eyes to command. Please note that this is a very brief summary of a long and complicated hospitalization. Please refer to further medical records for details. The patient is going to be discharged to home with hospice sign in today. TIME SPENT: Approximately 55 minutes were spent on the patient's discharge. [id number]/CPS #: [id number] MTDD
[2019-02-12] MEDS ORDERED: Scopolamine PATCH Remove* 1 NOTE MISC PATCH OFF SCH (06:30)
== END 2019-02-10 12:50 | disposition hospice, home (50) | DRG 628 ==
LOC: MED 12:29 → ICU 02-06 00:53 → MED 02-08 00:32
PROVIDERS: ADMIT Internal Medicine; ATTEND Internal Medicine
PROC: 5A1D70Z Performance of Urinary Filtration, Intermittent, Less than 6 Hours Per Day (ICD-10-PCS; 2018-12-31)
PROC: 0QBP0ZZ Excision of Left Metatarsal, Open Approach (ICD-10-PCS; principal; 2019-01-06 12:30)
PROC: 0QBM0ZZ Excision of Left Tarsal, Open Approach (ICD-10-PCS; 2019-01-11)
PROC: 0J9R00Z Drainage of Left Foot Subcutaneous Tissue and Fascia with Drainage Device, Open Approach (ICD-10-PCS; 2019-01-13)
PROC: 0QBM0ZZ Excision of Left Tarsal, Open Approach (ICD-10-PCS; 2019-01-20)
PROC: 0QBM0ZZ Excision of Left Tarsal, Open Approach (ICD-10-PCS; 2019-01-24)
PROC: 30233N1 Transfusion of Nonautologous Red Blood Cells into Peripheral Vein, Percutaneous Approach (ICD-10-PCS; 2019-01-28)
PROC: 03773ZZ Dilation of Right Brachial Artery, Percutaneous Approach (ICD-10-PCS; 2019-01-31)
PROC: B31NZZZ Fluoroscopy of Other Upper Arteries (ICD-10-PCS; 2019-01-31)
PROC: 0W9G3ZZ Drainage of Peritoneal Cavity, Percutaneous Approach (ICD-10-PCS; 2019-02-05)
PROC: 0BH17EZ Insertion of Endotracheal Airway into Trachea, Via Natural or Artificial Opening (ICD-10-PCS; 2019-02-06)
PROC: 5A1935Z Respiratory Ventilation, Less than 24 Consecutive Hours (ICD-10-PCS; 2019-02-06)
PROC: 06H033Z Insertion of Infusion Device into Inferior Vena Cava, Percutaneous Approach (ICD-10-PCS; 2019-02-06)
DX: E11.69 Type 2 diabetes mellitus with other specified complication (principal); J96.21 Acute and chronic respiratory failure with hypoxia; J69.0 Pneumonitis due to inhalation of food and vomit; L03.116 Cellulitis of left lower limb; E11.52 Type 2 diabetes mellitus with diabetic peripheral angiopathy with gangrene; M86.672 Other chronic osteomyelitis, left ankle and foot; L02.612 Cutaneous abscess of left foot; R18.8 Other ascites; I96 Gangrene, not elsewhere classified; T82.858A Stenosis of other vascular prosthetic devices, implants and grafts, initial encounter; R45.851 Suicidal ideations; F32.2 Major depressive disorder, single episode, severe without psychotic features; N18.6 End stage renal disease; E11.621 Type 2 diabetes mellitus with foot ulcer; L89.622 Pressure ulcer of left heel, stage 2; Y82.8 Other medical devices associated with adverse incidents; Y92.239 Unspecified place in hospital as the place of occurrence of the external cause; K72.90 Hepatic failure, unspecified without coma; L97.529 Non-pressure chronic ulcer of other part of left foot with unspecified severity; I25.10 Atherosclerotic heart disease of native coronary artery without angina pectoris; B96.89 Other specified bacterial agents as the cause of diseases classified elsewhere; E11.22 Type 2 diabetes mellitus with diabetic chronic kidney disease; E66.01 Morbid (severe) obesity due to excess calories; B95.61 Methicillin susceptible Staphylococcus aureus infection as the cause of diseases classified elsewhere; Z51.5 Encounter for palliative care; Z95.1 Presence of aortocoronary bypass graft; Z82.49 Family history of ischemic heart disease and other diseases of the circulatory system; Z99.2 Dependence on renal dialysis; Z83.3 Family history of diabetes mellitus; Z87.891 Personal history of nicotine dependence; Z89.422 Acquired absence of other left toe(s); Z99.81 Dependence on supplemental oxygen; Z68.30 Body mass index [BMI] 30.0-30.9, adult
CPT/HCPCS: 36415; 36600; 36901; 36902; 70030; 71045; 71046; 74018; 76705; 76937; 80048; 80053; 80076; 80202; 80500; 82040; 82042; 82140; 82272; 82330; 82657; 82803; 82945; 83036; 83516; 83605; 83735; 83930; 83935; 84100; 84157; 84484; 85025; 85027; 85210; 85220; 85347; 85379; 85384; 85610; 85730; 86038; 86140; 86255; 86481; 86706; 86803; 86850; 86900; 86901; 86922; 87040; 87070; 87073; 87077; 87116; 87186; 87205; 87206; 87340; 87556; 87640; 87641; 88112; 88304; 88311; 89051; 90935; 92950; 93005; 93990; 94002; 99156; 99157; A9270-GY; C1725; C1760; C1769; C1887; C1894; G0257; G8978-GP-CK; G8978-GP-CL; G8979-GP-CI; G8979-GP-CJ; J0330; J0690; J0692; J0696; J1100; J1644; J2001; J2060; J2250; J2270; J2310; J2405; J2543; J2704; J2765; J3010; J3370; J3475; J3490; P9016; P9047; Q5106